=== PATIENT | female | born 1940 | race Caucasian/White ===

== ENCOUNTER → 2017-12-19 13:55 | Outpatient (CLI) | payer MEDICARE, OTHER, SELFPAY ==
--- NOTE | 2017-12-19 14:05 | RAD_ITS ---
STUDY: X-RAY - ABDOMEN/PELVIS REASON FOR EXAM: Female, 76 years old. Lower abdominal pain and bloating. TECHNIQUE: Single AP view of the abdomen / pelvis. COMPARISON: None. FINDINGS: Normal visualized lung bases. There is a moderate amount of colonic fecal material. There are nonspecific gaseous small bowel loops and colon. Normal soft tissue structures. There are diffuse degenerative changes of the visualized lumbar spine. RAD/Abdomen Single View IMPRESSION: Fecal distention. Nonspecific gas pattern. Electronically Signed: Chris Rachel MD at 3:56 EDT Tel , Service support ,
== END ==
PROVIDERS: Family Provider Internal Medicine; PCP Internal Medicine; Visit Provider Nurse Practitioner
DX: R10.9 Unspecified abdominal pain (principal)
CPT/HCPCS: 74018

== ENCOUNTER → 2017-12-20 07:32 | Outpatient (CLI) | payer MEDICARE, OTHER, SELFPAY ==
[2017-12-20 07:45] LABS: Bacteria 0 SEEN /hpf (None Seen); Mucous, Urine 0 SEEN /hpf (<or=2+); Squamous Epithelial Cells - UA 0 SEEN /hpf (5-10)
[2017-12-20 10:15] LABS: Absolute Lymphocyte Count 2.16 X10^3/ul (0.83-4.51); Absolute Neutrophil Count 2.7 X10^3/uL (2.0-7.7); Basophil# 0.13 X10^3/uL; Basophil% 2.2 % (0-1); Eosinophil# 0.23 X10^3/uL; Hematocrit 38.8 % (37-47); Hemoglobin 12.9 g/dl (12.0-15.0); Lymphocyte # 2.16 X10^3/ul (4.0); Lymphocyte % 37.2 % (19-41); Mean Corp Hgb Conc 33.2 g/gl (32-36); Mean Corpuscular Hgb 30.5 pg (27.0-32.0); Mean Corpuscular Volume 91.7 fL (81-99); Mean Platelet Vol. 11.5 fl (6.2-12.0); Monocyte# 0.64 X10^3/uL; Neutrophil # 2.65 X10^3/uL (2.7-7.7); Neutrophil % 45.6 % (47-70); Platelet Count 262 K/mm3 (150-450); RBC Distribution Width CV 13.2 % (11.6-14.6); RBC Distribution Width SD 43.6 fl (35.1-43.9); Red Blood Count 4.23 M/mm3 (4.2-5.4); White Blood Count 5.8 K/mm3 (4.4-11.0)
[2017-12-20 10:16] LABS: Differential Indicated SCAN CRITERIA MET; POSITIVE COUNT NO; POSITIVE DIFFERENTIAL NO; POSITIVE MORPHOLOGY YES
[2017-12-20 10:31] LABS: BUN 17 mg/dL (7-18); Creatinine, Serum 0.72 mg/dL (0.55-1.02); Glucose 86 mg/dL (74-106)
[2017-12-20 10:32] LABS: AST(SGOT) 27 U/L (15-37); Alanine Aminotransfer ALT/SGPT 28 U/L (13-56); Albumin, Serum 3.6 g/dL (3.2-5.0); Alkaline Phosphatase 63 U/L (45-117); Anion Gap 5 (5-15); BUN/Creat Ratio 23.7 RATIO (10-20); Bilirubin, Direct 0.11 mg/dL (0.00-0.30); Chloride 103 mmol/L (98-107); Cholesterol 105 mg/dL (200); EST Glomerular Filtration Rate 84 mL/min (>60); Est Glom Filt Rate - Afr Amer 102 mL/min (>60); Globulin 3.7 g/dL (2.2-4.2); High Density Lipoprotein 43 mg/dL; Potassium 4.1 mmol/L (3.5-5.1); Protein, Total 7.3 g/dL (6.4-8.2); Sodium Level 140 mmol/L (136-145); Thyroid Stim Hormone (TSH) 1.84 uIU/mL (0.358-3.74); Triglycerides 54 mg/dL; Very Low Density Lipoprotein 11 mg/dL (5-40)
[2017-12-20 10:34] LABS: Microalbumin,Random Urine 5.3 mg/L (NO RANGE EST.); Microalbumin:Creatinine Ratio 9.7 mg/g CRE (<30 mg/g CRE)
[2017-12-20 10:42] LABS: Differential Comment SCANNED
[2017-12-20 14:04] LABS: Color, Urine Yellow (Yellow); Glucose, Dipstick Normal (Normal); Ketone-Dipstick Negative (Negative); Leukocyte Esterase-Dipstick 25 /ul (Negative); Nitrite-Dipstick Negative (Negative); Occult Blood-Urine 10 /ul (Negative); Protein-Dipstick Negative (Negative); Specific Gravity, Urine 1.005 (1.002-1.030); Urine Bilirubin Dipstick Negative (Negative); Urine Clarity Clear (Clear); Urine Urobilinogen Normal (Normal)
[2017-12-20 14:13] LABS: Red Blood Cells-Urine 0-5 SEEN /hpf (0-5); White Blood Cells 0-5 SEEN /hpf (0-5)
== END ==
PROVIDERS: Family Provider Internal Medicine; PCP Internal Medicine; Visit Provider Internal Medicine Cardiovascular Disease
DX: E78.5 Hyperlipidemia, unspecified (principal); Z79.899 Other long term (current) drug therapy; I10 Essential (primary) hypertension; E78.00 Pure hypercholesterolemia, unspecified
CPT/HCPCS: 36415; 80053; 80061; 81001; 82043; 82248; 82570; 84443; 85025

== ENCOUNTER → 2018-04-09 15:02 | Outpatient (CLI) | payer MEDICARE, OTHER, SELFPAY ==
--- NOTE | 2018-04-09 15:06 | US_ITS ---
STUDY: THYROID ULTRASOUND REASON FOR EXAM: Female, 77 years old. Right cervical palpable mass. TECHNIQUE: Ultrasound evaluation of the thyroid was performed with real-time and static carey-scale imaging. COMPARISON: None. FINDINGS: RIGHT LOBE: The right lobe of the thyroid gland measures 4.1 cm x 1.3 cm x 1.2 cm. There is a homogeneous echotexture. There is a 9 mm x 4 mm x 3 mm hypoechoic solid/cystic nodule in the lower pole of the right lobe. LEFT LOBE: The left lobe of the thyroid gland measures 4.4 cm x 1.4 cm x 1.9 cm. There is a homogeneous echotexture. There is a 6 mm x 6 mm x 6 mm well-defined hypoechoic solid nodule in the midpole of the left lobe. ISTHMUS: The isthmus measures 1.0 mm. The palpable abnormality lies on the lateral side of the right lobe of the thyroid. It measures 2.7 cm x 2.9 cm x 0.9 cm. This is of heterogeneous echotexture. This may represent either an inhomogeneous lymph node or possible mass. Correlation with a CT scan is recommended. US/Thyroid IMPRESSION: Subcentimeter nodules are seen in both lobes of the thyroid gland. The palpable abnormality corresponds to a heterogeneous soft tissue mass measuring 2.7 cm x 2.9 cm x 0.9 cm. This lies adjacent to the major vessels. Correlation with a CT scan is recommended for further evaluation. Electronically Signed: Michael Espinoza MD at 15:55 EST Tel [phone], Service support ,
[2018-04-10 14:51] LABS: CREATININE FINGERSTICK 0.8 mg/dL (0.55-1.02); EGFR FINGERSTICK > 60.0000 mL/min (>60)
== END ==
PROVIDERS: Family Provider Internal Medicine; PCP Internal Medicine; Visit Provider Nurse Practitioner
DX: R22.1 Localized swelling, mass and lump, neck (principal)
CPT/HCPCS: 76536

== ENCOUNTER → 2018-04-10 14:29 | Outpatient (CLI) | payer MEDICARE, OTHER, SELFPAY ==
--- NOTE | 2018-04-10 14:31 | CT_ITS ---
STUDY: CT SOFT TISSUE NECK WITH CONTRAST REASON FOR EXAM: Female, 77 years old. 3 day history of a Soft tissue mass/lump anterior aspect of the right side of the neck. RADIATION DOSAGE (If Supplied By Facility): CTDIvol = ( 12.36 ) mGy, DLP = ( 364.23 ) mGycm TECHNIQUE: The patient was scanned in a multi-detector CT scanner. High resolution transaxial imaging was performed following intravenous administration of 75mL ml of Isovue 300 contrast material. Sagittal and coronal images were reconstructed. Individualized dose optimization techniques were used for this CT. COMPARISON: None. FINDINGS: Normal bilateral parotid glands. 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 Normal bilateral parapharyngeal spaces. Normal bilateral carotid spaces. Normal bilateral sublingual and submandibular glands and spaces. Normal visualized nasopharynx. Normal retropharyngeal space. Normal perivertebral space. Normal visualized bilateral faucial tonsils. The visualized tongue, tongue base and oropharynx are normal. The visualized cervical lymph nodes (levels I-) are within normal size limits, and maintain normal morphology. There is no demonstrated solid or cystic mass lesion. There is no abnormal contrast enhancement. Normal epiglottis, bilateral vallecula and hypopharynx. The pre-epiglottic and paraglottic adipose spaces are normal. Normal visualized bilateral piriform sinuses, aryepiglottic folds, vocal cords, and arytenoid-cricoid articulations. Normal subglottic trachea. Normal bilateral lobes of the thyroid gland. Normal visualized pulmonary apices. Minimal mucosal thickening along the lateral wall of the right maxillary sinus. There is multilevel degenerative changes of the cervical spine. CT/Soft Tissue Neck WITH Contrast IMPRESSION: No mass lesion is seen. Minimal degree of mucosal thickening along the lateral wall of right maxillary sinus. Electronically Signed: Michael Espinoza MD at 15:37 EST Tel [phone], Service support ,
== END ==
PROVIDERS: Family Provider Internal Medicine; PCP Internal Medicine; Referring Provider Nurse Practitioner; Visit Provider Nurse Practitioner
DX: M79.9 Soft tissue disorder, unspecified (principal)
CPT/HCPCS: 70491; Q9967

== ENCOUNTER → 2018-04-17 09:04 | Outpatient (CLI) | payer MEDICARE, OTHER, SELFPAY ==
--- NOTE | 2018-04-17 | ASPOS_PTH ---
PATIENT: HERMAN LEONARD LOC: [facility] U#:[id number] AGE/SX: 84/F ROOM: RE04/17/[address]: Dr. Ricardo Rollins MD : 1940 BED: DIS: SPEC #: [id number] RECD: 04/17/18 12:38 STATUS: ALLI IAN #: [id number] MARY: 04/17/18 00:[address]: Ricardo Rollins DEPT: CYTOLOGY RECD BY: Ehsan Mccain ENTERED: 04/17/18 12:39 SP TYPE: ASP HERE OTHR DR: Dr. Catrina Malhotra DO Tissues: Neck, NOS Procedures: Pap Stain (control) Special Stain Group II Surgery Specimen Level IV Diff Quik Stain (control) Cell Block Cytology Other Fine Needle Asp on Site HEADER OPERATION: FNA, right neck mass PRE-OP DIAGNOSIS: Right neck mass TISSUE SUBMITTED: Right neck mass DIAGNOSIS CYTOLOGY Fine needle aspiration, right neck mass (smear, cell block): Negative for malignant cells. See comment. AM:zeb 04/18/18 COMMENT The specimen is evaluated at the time of FNA by Dr. Arellano. Immediate Evaluation = Macrophages consistent with benign cyst contents. The specimen contains macrophages, degenerating cellular debris and amorphous proteinaceous material. The lesion may represent a degenerating cyst. Clinical correlation is suggested. Case has been reviewed in consultation with Dr. Hernandez who concurs with the above diagnosis. IDC:SJ CYTOLOGY STUDY Slides are reviewed. CYTOLOGY GROSS Received is 0.5 ml of reddish fluid labeled with the patient's name, and designated Right neck mass. 5 imprints and 3 paps are made from the submitted fluid and the rest is added to CytoLyt for cell block preparation. Submitted for cytology study. TC: 5 CPT: 08955, 360880, 18941, 79310
== END ==
PROVIDERS: Family Provider Internal Medicine; PCP Internal Medicine; Referring Provider Otolaryngology; Visit Provider Otolaryngology
DX: R22.1 Localized swelling, mass and lump, neck (principal)
CPT/HCPCS: 10021; 88161; 88305; 88313

== ENCOUNTER → 2018-06-14 10:03 | Outpatient (CLI) | payer MEDICARE, OTHER, SELFPAY ==
--- NOTE | 2018-06-14 10:16 | EKG12_ITS ---
Test Reason : PREOP Blood Pressure : / mmHG Vent. Rate : 048 BPM Atrial Rate : 048 BPM P-R Int : 158 ms QRS Dur : 090 ms QT Int : 454 ms P-R-T Axes : 064 030 056 degrees QTc Int : 405 ms Marked sinus bradycardia Possible Left atrial enlargement Abnormal ECG Confirmed by BETO PLASCENCIA, SILVIA ([id number]), technical editor JOSE M TERRAZAS ([id number]) on 06/14/2018 1:33:13 PM Referred By: Go Rollins Confirmed By:SILVIA PÉREZ MD
[2018-06-14 11:45] LABS: Anion Gap 6 (5-15); BUN 17 mg/dL (7-18); BUN/Creat Ratio 27.6 RATIO (10-20); Chloride 103 mmol/L (98-107); Creatinine, Serum 0.62 mg/dL (0.55-1.02); EST Glomerular Filtration Rate 101 mL/min (>60); Est Glom Filt Rate - Afr Amer 122 mL/min (>60); Glucose 89 mg/dL (74-106); Potassium 3.8 mmol/L (3.5-5.1); Sodium Level 138 mmol/L (136-145)
== END ==
PROVIDERS: Family Provider Internal Medicine; PCP Internal Medicine; Referring Provider Otolaryngology; Visit Provider Otolaryngology
DX: Z01.818 Encounter for other preprocedural examination (principal); R22.1 Localized swelling, mass and lump, neck
CPT/HCPCS: 36415; 80048; 93005

== ENCOUNTER → 2018-06-19 15:36 | Outpatient (CLI) | payer MEDICARE, OTHER, SELFPAY ==
--- NOTE | 2018-06-18 | IMM_PTH ---
PATIENT: HERMAN LEONARD LOC: [facility] U#:[id number] AGE/SX: 84/F ROOM: RE06/19/[address]: Dr. Ricardo Rollins MD : 1940 BED: DIS: SPEC #: [id number] RECD: 06/24/18 12:43 STATUS: ALLI REQ #: [id number] MARY: 06/18/18 00:[address]: Ricardo Rollins DEPT: IMMUNOHISTOCHEMISTRY RECD BY: Ju Ochoa ENTERED: 06/24/18 12:46 SP TYPE: IMMUNO OTHR DR: Dr. Catrina Malhotra, DO Tissues: Neck, NOS Procedures: SMA (add) CD31 (add) CD34 (add) JOAQUÍN (add) KI-67 (add) MACRO (add) P53 (add) Vimentin (add) FACTOR VIII (add) AE1-3 (initial) PHYSICIAN & INSTITUTION [facility] [phone] SPECIMEN INFORMATION: Tissue Source: Right neck mass Clinical Info: Localized swelling mass and lump, neck Specimen Number: [id number] block 1 CPT code: 10105, 77131 x9 METHODOLOGY: Deparaffinized sections of prefer/formalin-fixed tissue or PAP/DQ stained slides are incubated with monoclonal/polyclonal antibodies/oligonucleotide probes. Localization is made via biotin free immunoperoxidase method. Appropriate controls are performed and reacted as expected. Results on target cell population are indicated in the following table: RESULTS: ANTIBODY / CLONE RESULT Block 1 AE1-3 (AE1/AE3/PCK26) negative Actin (1A4) positive, focal Vimentin (V9) positive CD31 (MARYELLEN/70A) positive CD34 (QBEnd-10) positive Factor VIII (R Ag) positive Macro (HAM-56) positive Ki-67 (30-9) negative JOAQUÍN (E29) negative P53 (DO-7) negative These tests were developed and their performance characteristics determined by [facility]. They may not have been cleared or approved by the [place]. Food and Drug Administration. The FDA has determined that such clearance or approval is not necessary. INTERPRETATION: Right neck mass, excision: Suggestive of benign vascular lesion with associated organizing hematoma. AM:maritza 06/26/18
--- NOTE | 2018-06-18 14:10 | MASS_PTH ---
PATIENT: HERMAN LEONARD LOC: [facility] U#:[id number] AGE/SX: 84/F ROOM: RE06/19/[address]: Dr. Ricardo Rollins MD : 1940 BED: DIS: SPEC #: [id number] RECD: 06/19/18 15:36 STATUS: ALLI IAN #: [id number] MARY: 06/18/18 14:[address]: Ricardo Rollins DEPT: SURGICAL PATHOLOGY RECD BY: Nahum Coates ENTERED: 06/20/18 12:10 SP TYPE: Mass OTHR DR: Dr. 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 No evidence of malignancy. AM:maritza 06/21/18 COMMENT Immunohistochemistry ([id number]) supports the above diagnosis. The differential diagnosis includes a benign vascular lesion with associated organizing hematoma and associated reactive change. Reference is made to the patient's previous fine needle aspiration from 04/17/18 ([id number]) in which macrophages consistent with benign cyst contents were identified. MICROSCOPIC DESCRIPTION Slides are reviewed. GROSS DESCRIPTION Received is one container labeled with the patient's name and not further designated. The specimen consists of a piece of pink, congested soft tissue measuring 2 x 1.5 x 1.2 cm. The specimen is inked, serially sectioned and reveals hemorrhagic cut surfaces. The entire specimen is submitted in two cassettes. / SJ:maritza 06/20/18 TC:5 CPT: 52219
--- OUTSIDE RECORDS SUMMARY | 2018-08-24 15:34 | XMS RPT_ITS | Continuity of Care Document ---
:1940 External Reference #:[id number] Author Organization [facility] Address [address] [place] [address] Phone Care Team Providers Name Role Phone Catrina Perry DO Unavailable Ricardo Rollins MD Unavailable Dr. Addison Kimball Unavailable Poly Bunn Unavailable [facility] PLASCENCIA, Dr. 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, 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) Comments: going to try calm day before adding buspar Status: Active BMI 22.0-22.9, adult (Z68.22, V85.1) Status: Active BMI 23.0-23.9, adult (Z68.23, V85.1) Status: Active BMI 23.0-23.9, adult (Z68.23, V85.1) Status: Active BMI 25.0-25.9,adult (Z68.25, V85.21) Status: Active Depression (F32.9, 311) Comments: chronic stable-continue present regimen Status: Active Diaphragmatic hernia without obstruction (K44.9, 553.3) Status: Active Dizziness and giddiness (R42, 780.4) Status: Active Dysuria (R30.0, 788.1) Status: Active Eczema (Renamed from Dermatitis, eczematoid) (L30.9, 692.9) Status: Active Encounter for Medicare annual wellness exam (Z00.00, V70.0) Status: Active Essential hypertension (I10, 401.9) Status: Active Family history of other cardiovascular diseases (Z82.49, V17.4) Status: Active Foot pain, right (M79.671, 729.5) Status: Active Gastroesophageal reflux disease without esophagitis (K21.9, 530.81) Status: Active Hearing loss, unspecified laterality (389.9) Status: Active Hypercholesterolemia (E78.00, 272.0) Status: Active Low back pain (Renamed from LBP (low back pain)) (M54.5, 724.2) 19-Aug-2010 Status: Active Low back pain potentially associated with radiculopathy (M54.5, 724.2) Status: Active Need for prophylactic vaccination and inoculation against influenza (Z23, V04.81) Status: Active Need for prophylactic vaccination and inoculation against influenza (Renamed from Need for immunization against influenza) (Z23, V04.81) Status: Active NEED FOR PROPHYLACTIC VACCINATION AND INOCULATION AGAINST INFLUENZA (V04.81) (Renamed from NEED FOR PROPHYLACTIC VACCINATION AND INOCULATION AGAINST INFLUENZA) (Z23, V04.81) Status: Active Non-smoker (Z78.9, V49.89) Status: Active Non-smoker (Z78.9, V49.89) Status: Active Obstructive sleep apnea, adult (G47.33, 327.23) Status: Active Osteoarthritis (M19.90, 715.90) Status: Active Osteoporosis, 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, 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) Comments: dr Yang managing Status: Active Other anxiety states (F41.1, 300.09) Status: Active Other specified circulatory system disorders (I99.8, 459.89) Status: Active Post-menopausal (Z78.0, V49.81) Status: Active Prolapse of vaginal wall with midline cystocele (N81.11, 618.01) Status: Active screen Status: Active screening Status: Active screening Status: Active screening Status: Active screening Status: Active Soft tissue mass (M79.9, 729.90) Comments: biopsy jof soft tissue mass on neck was benign Status: Active Suprapubic pain, acute (R10.2, 789.09) Status: Active CAROLINE Status: Active Unspecified Diagnosis Status: Active Unspecified Diagnosis Status: Active Uterovaginal prolapse, unspecified (618.4) Status: Active UTI (urinary tract infection) (N39.0, 599.0) Comments: ernst headley, treating with macrobid Status: Active Medications Name Dates Details Aspirin Low Dose 81 MG Oral Tablet 1 QD for 0 days Refills: 0 Ordered:09-May-2018 Nick Perry DO, DO, Kathleen Start : 09-May-2018 Active Biotin 1000 MCG Oral Tablet qd for 0 days Refills: 0 Ordered:09-May-2018 Nick Perry DO, DO, Kathleen Start : 09-May-2018 Active CALCIUM, 1500MG (Oral Tablet) 1 QD for 0 days Refills: 0 Ordered:16-Sep-2013 Shankar Herndon Citalopram Hydrobromide 20 MG Oral Tablet 1 Tablet qd for 90 days Quantity: 90 {Tablet} Refills: 1 Ordered:13-May-2018 Nick Perry DO, DO, Kathleen Start : 13-May-2018 Active Citracal Maximum 315-250 MG-UNIT Oral Tablet 1 tab bid for 0 days Refills: 0 Ordered:09-May-2018 Nick Perry DO, DO, Kathleen Start : 09-May-2018 Active Folic Acid 400 MCG Oral Tablet qd for 0 days Refills: 0 Ordered:09-May-2018 Nick Perry DO, DO, Kathleen Start : 09-May-2018 Active Glucosamine Chondr 1500 Complx Oral Capsule bid for 0 days Refills: 0 Ordered:09-May-2018 Nick Perry DO, DO, Kathleen Start : 09-May-2018 Active HydroCHLOROthiazide 12.5 MG Oral Tablet 1 (one) Tablet daily for 90 days Quantity: 90 {Tablet} Refills: 3 Ordered:09-May-2018 Nick Perry DO, DO, Kathleen Start : 09-May-2018 Active HydroCHLOROthiazide 12.5 MG Oral Tablet 1 (one) Tablet daily for 30 days Quantity: 30 {Tablet} Refills: 1 Ordered:09-May-2018 Nick Perry DO, DO, Kathleen Start : 09-May-2018 Active Losartan Potassium 50 MG Oral Tablet 1 qd for 0 days Refills: 0 Ordered:09-May-2018 Nick Perry DO, DO, Kathleen Start : 09-May-2018 Active Metoprolol Succinate ER 25 MG Oral Tablet Extended Release 24 Hour 1 Tablet qd for 90 days Quantity: 90 {Tablet} Refills: 1 Ordered:09-May-2018 Nick Perry DO, DO, Kathleen Start : 09-May-2018 Active MULTIVITAMIN (Oral Liquid) for 0 days Refills: 0 Ordered:31-Dec-2017 Slarb ROEL AngelSalvatoretive Omeprazole 20 MG Oral Capsule Delayed Release [address] qd for 90 days Quantity: 90 {Capsule} Refills: 3 Ordered:13-May-2018 Nick Perry DO, DO, Kathleen Start : 13-May-2018 Active Simvastatin 40 MG Oral Tablet 1 (one) Tablet qd for 90 days Quantity: 90 {Tablet} Refills: 1 Ordered:13-May-2018 Nick Perry DO, DO, Kathleen Start : 13-May-2018 Active ALEVE, 220MG (Oral Tablet) 2 (two) Tablet q8 hr prn with food for 0 days Quantity: 30 {Tablet} Refills: 0 Ordered:30-Jan-2012 Long HOUSEHOLD CHORES, L Start : 14-Dec-2010 End : 30-Jan-2012 Inactive SAI-D 12 HOUR, 60-120MG (Oral Tablet Extended Release 12 Hour) 1 Tablet ER 12HR bid for 5 days Quantity: 12 {Tablet_ER_12HR} Refills: 0 Ordered:08-Aug-2010 Nick Perry DO, DO, Kathleen Start : 23-Jun-2010 End : 28-Jun-2010 Inactive ASTEPRO, 0.15% (Nasal Solution) 2 (two) Puff(s) daily for 0 days Quantity: 1 {Suppository(ies)} Refills: 0 Ordered:30-Jan-2012 Megan Phillips LPN Start : 11-Jul-2011 End : 30-Jan-2012 Inactive ATENOLOL, 25MG (Oral Tablet) 1 (one) Tablet qd for 0 days Quantity: 30 {Tablet} Refills: 3 Ordered:24-Apr-2007 Libby Herndon Start : 24-Apr-2007 End : 27-Sep-2007 Inactive AUGMENTIN, 875-125MG (Oral Tablet) 1 Tablet bid for 14 days Quantity: 28 {Tablet} Refills: 0 Ordered:07-Sep-2010 Acacia Whaley CNP Start : 07-Sep-2010 End : 21-Sep-2010 Inactive BACTRIM DS, 800-160MG (Oral Tablet) 1 Tablet bid for 0 days Quantity: 20 {Tablet} Refills: 0 Ordered:06-Aug-2012 EBTTE Edwards Start : 25-Jun-2012 End : 06-Aug-2012 Inactive BENICAR, 40MG (Oral Tablet) 1 (one) Tablet QD for 90 days Quantity: 90 {Tablet} Refills: 3 Ordered:28-Oct-2014 Daisy Gallegos Start : 13-Mar-2014 End : 28-Oct-2014 Inactive BIOTIN, 1000MCG (Oral Tablet) 1 tab qd for 0 days Refills: 0 Ordered:07-Sep-2010 Cristine Barrett LPN End : 07-Sep-2010 Inactive BUSPAR, 15MG (Oral Tablet) 1 Tablet qd for 0 days Quantity: 60 {Tablet} Refills: 3 Ordered:05-Jun-2006 Libby Herndon Start : 05-Jun-2006 End : 27-Sep-2007 Inactive CIPRO, 500MG (Oral Tablet) 1 Tablet bid x 10days for 10 days Quantity: 20 {Tablet} Refills: 0 Ordered:23-Apr-2015 Nick Perry DO, DO, Kathleen Start : 23-Apr-2015 End : 03-May-2015 Inactive CORICIDIN HBP CONGESTION/COUGH, 10-200MG (Oral Capsule) 1 Capsule daily for 0 days Quantity: 30 {Capsule} Refills: 0 Ordered:14-Dec-2010 Cristine Barrett LPN Start : 07-Sep-2010 End : 14-Dec-2010 Inactive DIOVAN, 320MG (Oral Tablet) 1 Tablet qd for 90 days Quantity: 90 {Tablet} Refills: 3 Ordered:24-Jun-2013 Corine Marcum MD Start : 24-Jun-2013 End : 24-Jun-2013 Inactive ETODOLAC CR, 400MG (Oral Tablet Extended Release 24 Hour) 2 (two) Tablet ER 24HR qd with food for 0 days Quantity: 30 {Tablet_ER_24HR} Refills: 0 Ordered:07-Sep-2010 Cristine Barrett LPN Start : 19-Aug-2010 End : 07-Sep-2010 Inactive Fish Oil 1200 MG Oral Capsule 1 cap Capsule qd for 30 days Refills: 0 Ordered:12-Dec-2017 Nick Perry DO, DO, Kathleen Start : 12-Dec-2017 End : 11-Jan-2018 Inactive FLONASE, 50MCG/ACT (Nasal Suspension) 2 (two) Puff(s) daily for 0 days Quantity: 1 {Puff(s)} Refills: 0 Ordered:30-Jan-2012 Megan Phillips LPN Start : 21-Jul-2011 End : 30-Jan-2012 Inactive FOLIC ACID, 1MG (Oral Tablet) 1 tab qd for 0 days Refills: 0 Ordered:27-Sep-2007 Libby Herndon End : 27-Sep-2007 Inactive KLONOPIN, 0.5MG (Oral Tablet) 1-2 Tablet QHS / HS prn for 0 days Quantity: 30 {Tablet} Refills: 1 Ordered:07-Sep-2010 Cristine Barrett LPN Start : 13-Jul-2009 End : 07-Sep-2010 Inactive Comments:THIRTY Lisinopril 20 MG Oral Tablet 1 (one) Tablet daily for 30 days Quantity: 30 {Tablet} Refills: 1 Ordered:12-Dec-2017 Tanya Bermudez LPN Start : 19-Jul-2015 End : 12-Dec-2017 Inactive Macrobid 100 MG Oral Capsule 1 (one) Capsule Capsule bid for 7 days Quantity: 14 {Capsule} Refills: 0 Ordered:26-Dec-2017 Nick Perry DO, DO, Kathleen Start : 26-Dec-2017 End : 02-Jan-2018 Inactive Meloxicam 15 MG Oral Tablet 1 (one) Tablet daily, prn for 30 days Quantity: 30 {Tablet} Refills: 0 Ordered:12-Dec-2017 Tanya Bermudez LPN Start : 21-May-2015 End : 12-Dec-2017 Inactive Comments:with food METROGEL-VAGINAL, 0.75% (Vaginal Gel) 1 Gel qhs with vaginal applicator for 0 days Quantity: 7 {Gel} Refills: 0 Ordered:07-Sep-2010 Cristine Barrett LPN Start : 23-Jun-2010 End : 07-Sep-2010 Inactive NASACORT AQ, 55MCG/ACT (Nasal Aerosol Solution) 2 (two) Puff(s) once daily for 0 days Quantity: 1 {Aerosol_Soln} Refills: 0 Ordered:14-Dec-2010 Cristine Barrett LPN Start : 07-Sep-2010 End : 14-Dec-2010 Inactive NASONEX, 50MCG/ACT (Nasal Suspension) 2 (two) Suspension qd for 10 days Quantity: 1 {Suspension} Refills: 0 Ordered:08-Aug-2010 Nick Perry DO, DO, Kathleen Start : 23-Jun-2010 End : 03-Jul-2010 Inactive PREDNISONE, 10MG (Oral Tablet) 3 (three) Tablet daily for 7 days Quantity: 21 {Tablet} Refills: 0 Ordered:09-Dec-2014 Jovana OJEDA Lori Start : 09-Dec-2014 End : 16-Dec-2014 Inactive PREMARIN, 0.625MG (Oral Tablet) 1 (one) Tablet QD for 0 days Quantity: 90 {Tablet} Refills: 3 Ordered:04-Apr-2006 Jocelin Bunn Start : 04-Apr-2006 End : 10-Apr-2007 Inactive RED YEAST RICE EXTRACT, 600MG (Oral Capsule) 2 caps qd for 0 days Refills: 0 Ordered:29-Mar-2009 Libby Herndon End : 29-Mar-2009 Inactive ULTRAVATE, 0.05% (External Cream) 1 (one) Cream bid for 0 days Quantity: 1 {Cream} Refills: 0 Ordered:19-Aug-2010 Tanya Bermudez LPN Start : 23-Dec-2009 End : 19-Aug-2010 Inactive VALIUM, 2MG (Oral Tablet) 1-2 Tablet q 12 hr prn for 0 days Quantity: 30 {Tablet} Refills: 0 Ordered:07-Sep-2010 Arnold SEVILLA, Cristine Start : 19-Aug-2010 End : 07-Sep-2010 Inactive Comments:thrity VICODIN, 5-500MG (Oral Tablet) 1-2 Tablet q 6 prn for 0 days Quantity: 30 {Tablet} Refills: 0 Ordered:14-Dec-2010 Arnold ROEL Cristine Start : 19-Aug-2010 End : 14-Dec-2010 Inactive Comments:thirty Viibryd 20 MG Oral Tablet 1 (one) Tablet qd for 0 days Quantity: 90 {Tablet} Refills: 3 Ordered:12-Dec-2017 Tanya Bermudez LPN Start : 21-May-2015 End : 12-Dec-2017 Inactive WELLBUTRIN XL, 150MG (Oral Tablet Extended Release 24 Hour) 1 (one) Tablet ER 24HR qd for 90 days Quantity: 90 {Tablet_ER_24HR} Refills: 0 Ordered:13-Nov-2011 Tanya Bermudez LPN Start : 13-Nov-2011 End : 11-Feb-2012 Inactive ZITHROMAX Z-KATHARINE, 250MG (Oral Tablet) 1 Tablet TAD for 0 days Quantity: 1 {Package(s)} Refills: 0 Ordered:30-Jan-2012 Megan Phillips LPN Start : 21-Jul-2011 End : 30-Jan-2012 Inactive ZOLOFT, 50MG (Oral Tablet) 1 (one) Tablet QD for 0 days Quantity: 90 {Tablet} Refills: 3 Ordered:06-Aug-2012 BETTE Edwards Start : 29-Sep-2011 End : 06-Aug-2012 Inactive AMOXICILLIN-POT CLAVULANATE, 875-125MG (Oral Tablet) 1 (one) Tablet Tablet bid for 0 days Quantity: 20 {Tablet} Refills: 0 Ordered:21-May-2015 Libby Herndon Start : 11-Jan-2015 End : 21-May-2015 Discontinued CRESTOR, 10MG (Oral Tablet) 1 tab Tablet qd for 90 days Quantity: 90 {Tablet} Refills: 3 Ordered:30-Jan-2012 Tessie Greene DO Start : 30-Jan-2012 End : 30-Jan-2012 Discontinued ELAVIL, 10MG (Oral Tablet) 1-2 Tablet qhs / HS for 0 days Quantity: 60 {Tablet} Refills: 3 Ordered:10-Apr-2007 Libby Herndon Start : 10-Apr-2007 End : 24-Jun-2007 Discontinued Folic Acid (specific dose unknown) End : 24-Jun-2007 Discontinued IRBESARTAN, 300MG (Oral Tablet) 1 (one) Tablet Tablet qd for 0 days Quantity: 90 {Tablet} Refills: 3 Ordered:19-Jul-2015 Libby Herndon Start : 28-Jun-2015 End : 19-Jul-2015 Discontinued LOSARTAN POTASSIUM, 100MG (Oral Tablet) 1 Tablet qd for 0 days Quantity: 90 {Tablet} Refills: 3 Ordered:03-May-2012 Tessie Greene DO Start : 03-May-2012 End : 03-May-2012 Discontinued PRILOSEC, 20MG (Oral Capsule Delayed Release) [address] qd for 90 days Quantity: 90 {Capsule_DR} Refills: 3 Ordered:30-Jan-2012 Jc BROUSSARD Tessie Soler Start : 30-Jan-2012 End : 30-Jan-2012 Discontinued REMIFEMIN MENOPAUSE, 20MG (Oral Tablet) 1 tab bid for 0 days Refills: 0 Ordered:08-Jan-2008 Libby Herndon End : 08-Jan-2008 Discontinued Allergies and Adverse Reactions Name Dates Details Bactrim *ANTI-INFECTIVE AGENTS - MISC.* Status: Active (Allergy) Comments: nausea Allergy to No Known Drug Allergies Status: Inactive (Renamed from No Known Drug Allergies) (Allergy) Pnuemonia vaccine (Allergy) Status: Active Comments: red, inflamed reaction on site of injection Past Medical History Name Dates Details Abdominal pain (R10.9, 789.00) Status: Resolved as of 18-Apr-2018 Abdominal pain, acute, generalized (R10.84, 789.07) Status: Resolved as of 05-Feb-2015 Abdominal pain, acute, left lower quadrant (R10.32, 789.04) Status: Resolved as of 15-Nov-2010 Abnormal mammogram (Renamed from Abnormal finding on mammography) (R92.8, 793.80) Status: Inactive as of 12-Dec-2017 Acute cystitis (N30.00, 595.0) Status: Resolved as of 21-Aug-2012 Acute laryngitis without obstruction (J04.0, 464.00) Status: Resolved as of 29-Sep-2011 Anemia, unspecified (D64.9, 285.9) Status: Resolved as of 11-Jan-2009 BACTERIAL VAGINOSIS (131.01) Status: Resolved as of 15-Nov-2010 Bronchitis (J40, 490) Status: Resolved as of 29-Sep-2011 Calf pain (M79.669, 729.5) Status: Resolved as of 30-Aug-2009 Candidiasis, unspecified (B37.9, 112.9) Status: Resolved as of 30-Aug-2009 Change in bowel habit (R19.4, 787.99) Status: Resolved as of 18-Apr-2018 Constipation (K59.00, 564.00) Comments: miralax helps Status: Resolved as of 18-Apr-2018 Dermatophytosis of the body (110.5) Status: Resolved as of 29-Sep-2011 Diarrhea (Renamed from D (diarrhea)) (R19.7, 787.91) Status: Resolved as of 15-Nov-2010 DISORDERS, ORGANIC, SLEEP RELATED LEG CRAMPS (327.52) Status: Resolved as of 30-Aug-2009 EASY BRUISABILITY OF SKIN Status: Inactive as of 16-Nov-2008 Encounter for screening mammogram for malignant neoplasm of breast (Z12.31, V76.12) Status: Inactive as of 31-Dec-2012 Eustachian tube dysfunction (H69.80, 381.81) Status: Resolved as of 15-Nov-2010 Fracture, Colles, right, closed (813.41) Comments: check on reclast Status: Inactive as of 12-Dec-2017 Headache (Renamed from Cephalalgia) (R51, 784.0) Status: Inactive as of 16-Nov-2008 Hematuria (Renamed from Blood in the urine) (R31.9, 599.7) Status: Inactive as of 16-Nov-2008 Hot flashes (N95.1, 627.2) Status: Inactive as of 12-Dec-2017 Infectious mononucleosis (B27.90, 075) Status: Resolved as of 15-Nov-2010 Infectious mononucleosis (B27.90, 075) Status: Resolved as of 21-Aug-2012 ischemic colitis Status: Inactive as of 16-Nov-2008 ischemic colitis Status: Inactive as of 12-Dec-2017 Knee pain (Renamed from Arthralgia of knee) (M25.569, 719.46) Status: Inactive as of 12-Dec-2017 Muscle spasm (M62.838, 728.85) Status: Resolved as of 18-Mar-2013 Nausea alone (Renamed from Chronic nausea) (R11.0, 787.02) Status: Resolved as of 21-Aug-2012 Nausea and vomiting (Renamed from N&V (nausea and vomiting)) (R11.2, 787.01) Status: Inactive as of 16-Nov-2008 Neck pain (M54.2, 723.1) Comments: use ibuprofen Status: Resolved as of 18-Apr-2018 No known drug allergy (Z78.9, V49.89) 13-Mar-2014 Status: Inactive as of 26-Oct-2009 Osteopenia (M85.80, 733.90) Status: Inactive as of 18-Apr-2018 Other chest pain (R07.89, 786.59) Status: Resolved as of 29-Sep-2011 Pain in joint involving ankle and foot, unspecified laterality (M25.579, 719.47) Comments: stepped down and felt burning pain on ankle Status: Resolved as of 29-Sep-2011 Palpable mass of neck (R22.1, 784.2) Comments: rt side ? lipoma, cyst? lymph? will ultrasound thyroid and attention rt neck and CT with contrast showing likely lymph node, will refer formally to Dr. Garcia ENT Status: Resolved as of 18-Apr-2018 Poison casandra (L23.7, 692.6) Status: Resolved as of 05-Feb-2015 probable seborrheic keratosis- reassurance Status: Inactive as of 16-Nov-2008 Rectal bleeding (K62.5, 569.3) Status: Inactive as of 16-Nov-2008 rhomboid spasm- pt starting massotherapy if not better- pt /imaging- pt to call no improve Status: Inactive as of 16-Nov-2008 Rib contusion (922.1) Status: Resolved as of 21-Aug-2012 Shortness of breath on exertion (R06.02, 786.05) Status: Inactive as of 16-Nov-2008 Shoulder pain (Renamed from Pain in shoulder) (M25.519, 719.41) Status: Resolved as of 30-Aug-2009 SOB (shortness of breath) on exertion (R06.02, 786.05) Status: Inactive as of 16-Nov-2008 Tachycardia-bradycardia (I49.5, 427.81) Status: Resolved as of 29-Sep-2011 Tension headache (G44.209, 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) Comments: chronic stable-continue present regimen Status: Inactive as of 16-Nov-2008 Vaginal discharge (Renamed from Discharge from the vagina) (N89.8, 623.5) Status: Resolved as of 15-Nov-2010 Well woman exam with routine gynecological exam (Z01.419, V72.31) Status: Inactive as of 01-May-2011 Procedures Date Value Details 10-Apr-2018 Soft Tissue Neck WITH Contrast Result: Comments: See Note; NOTES: [facility] Imaging Services [address] [address] Soft Tissue Neck WITH Contrast MR#: [id number] Acct: [id number] Name: HERMAN LEONARD Rep #: [id number] : 1940 F 77 From: Michael Alonso MD PCP: Catrina Perry DO Status: REG CLI Study: Soft Tissue Neck WITH Contrast Date of Exam: 04/10/18 Exam# [id number] Ordering Dr: Acacia Whaley STUDY: CT SOFT TISSUE NECK WITH CONTRAST REASON FOR EXAM: Female, 77 years old. 3 day history of a Soft tissue mass/lump anterior aspect of the right side of the neck. RADIATION DOSAGE (If Suppl ied By Facility): CTDIvol = ( 12.36 ) mGy, DLP = ( 364.23 ) mGycm TECHNIQUE: The patient was scanned in a multi-detector CT scanner. High resolution transaxial imaging was performed following intraveno us administration of 75mL ml of Isovue 300 contrast material. Sagittal and coronal images were reconstructed. Individualized dose optimization techniques were used for this CT. COMPARISON: None. FINDINGS: Normal bilateral parotid glands. Normal bilateral manager of business operations spaces. Normal bilateral parapharyngeal spaces. Normal bilateral carotid spaces. Normal bilateral sublingual and submandibular glands and spaces. Normal visualized nasopharynx. Normal retropharyngeal space. Normal perivertebral space. Normal visualized bilateral faucial tonsils. The visualized ton mikayla, tongue base and oropharynx are normal. The visualized cervical lymph nodes (levels I-) are within normal size limits, and maintain normal morphology. There is no demonstrated solid or cystic mas s lesion. There is no abnormal contrast enhancement. Normal epiglottis, bilateral vallecula and hypopharynx. The pre-epiglottic and paraglottic adipose spaces are normal. Normal visualized bilateral pi riform sinuses, aryepiglottic folds, vocal cords, and arytenoid-cricoid articulations. Normal subglottic trachea. Normal bilateral lobes of the thyroid gland. Normal visualized pulmonary apices. Minim al mucosal thickening along the lateral wall of the right maxillary sinus. There is multilevel degenerative changes of the cervical spine. CT/Sof t Tissue Neck WITH Contrast IMPRESSION: No mass lesion is seen. Minimal degree of mucosal thickening along the lateral wall of right maxillary sinus. Electronically Signed: Michael Alonso MD 04/10 at 15:37 EST Tel [phone], Service support , CC: Acacia Whaley TRANSPORTATION TECHNICIAN; Catrina Perry DO Jet Mechanic: Signed 10-Apr-2018 Soft Tissue Neck WITH Contrast Result: Comments: See Note; NOTES: [facility] Imaging Services [address] [place] [id number] Soft Tissue Neck WITH Contrast MR#: [id number] Acct: [id number] Name: HERMAN LEONARD Rep #: [id number] : 1940 F 77 From: Michael Alonso MD PCP: Catrina Perry DO Status: REG CLI Study: Soft Tissue Neck WITH Contrast Date of Exam: 04/10/18 Exam# [id number] Ordering Dr: Acacia Whaley P-C ADDENDUM by Michael Alonso MD on 04/11/18 at 0847 ADDENDUM This is an addendum report. Th ere is a 1.9 cm x 1.7 cm x 2.2 cm rounded soft tissue mass in the anterior aspect of the right-sided neck adjacent to the thyroid cartilage. This corresponds to the palpable abnormality. This may repres ent an enlarged lymph node. Electronically Signed: Michael Alonso MD at 8:47 EST Tel [phone], Service support , 04/11/18 0847 Date cc : Acacia Whaley NP; Catrina Perry DO * Signed ADDENDUM by Michael Alonso MD on 04/11/[address]/Soft Tissue Neck WITH Contrast 04/11/18 0854 Date cc: Acacia Willis sa, NP; Catrina Perry DO * Signed STUDY: CT SOFT TISSUE NECK WITH CONTRAST REASON FOR EXAM: Female, 77 years old. 3 day history of a Soft tissue mass/lump anterior aspect of the right side of the nec k. RADIATION DOSAGE (If Supplied By Facility): CTDIvol = ( 12.36 ) mGy, DLP = ( 364.23 ) mGycm TECHNIQUE: The patient was scanned in a multi-detector CT scanner. High resolution transaxial imaging was performed following intravenous administration of 75mL ml of Isovue 300 contrast material. Sagittal and coronal images were reconstructed. Individualized dose optimization techniques were used for thi s CT. COMPARISON: None. FINDINGS: Normal bilateral parotid glands. Normal bilateral manager of business operations spaces. Normal bilateral parapharyngeal spaces. Normal bilateral albarado tid spaces. Normal bilateral sublingual and submandibular glands and spaces. Normal visualized nasopharynx. Normal retropharyngeal space. Normal perivertebral space. Normal visualized bilateral fauci al tonsils. The visualized tongue, tongue base and oropharynx are normal. The visualized cervical lymph nodes (levels I-) are within normal size limits, and maintain normal morphology. There is no de monstrated solid or cystic mass lesion. There is no abnormal contrast enhancement. Normal epiglottis, bilateral vallecula and hypopharynx. The pre-epiglottic and paraglottic adipose spaces are normal. Normal visualized bilateral piriform sinuses, aryepiglottic folds, vocal cords, and arytenoid-cricoid articulations. Normal subglottic trachea. Normal bilateral lobes of the thyroid gland. Normal visua lized pulmonary apices. Minimal mucosal thickening along the lateral wall of the right maxillary sinus. There is multilevel degenerative changes of the cervical spine. __ CT/Soft Tissue Neck WITH Contrast IMPRESSION: No mass lesion is seen. Minimal degree of mucosal thickening along the lateral wall of right maxillary sinus. Electronically Signed : Michael Alonso MD at 15:37 EST Tel [phone], Service support , CC: Acacia Whaley NP; Catirna Perry DO Jet Mechanic: Signed 09-Apr-2018 Thyroid Result: Comments: See Note; NOTES: [facility] Imaging Services [facility] [place] [address] Thyroid MR#: [id number] Acct: [id number] Name: HERMAN LEONARD Rep #: [id number] : 12/26/18 45 F 77 From: Michael Alonso MD PCP: Catrina Perry DO Status: REG CLI Study: Thyroid Date of Exam: 04/09/18 Exam# [id number] Ordering Dr: Acacia Whaley TRANSPORTATION TECHNICIAN-C STUDY: THYROID ULTRASOUND REASON FOR EX AM: Female, 77 years old. Right cervical palpable mass. TECHNIQUE: Ultrasound evaluation of the thyroid was performed with real-time and static carey-scale imaging. COMPARISON: None. FINDINGS: RIGHT LOBE: The right lobe of the thyroid gland measures 4.1 cm x 1.3 cm x 1.2 cm. There is a homogeneous echotexture. There is a 9 mm x 4 mm x 3 mm hypoechoic solid/cystic nodule in the lower pole of the right lobe. LEFT LOBE: The left lobe of the thyroid gland measures 4.4 cm x 1.4 cm x 1.9 cm. There is a homogeneous echotexture. There is a 6 mm x 6 mm x 6 mm well-defi sravan hypoechoic solid nodule in the midpole of the left lobe. ISTHMUS: The isthmus measures 1.0 mm. The palpable abnormality lies on the lateral side of the right lobe of the thyroid. It measures 2.7 c m x 2.9 cm x 0.9 cm. This is of heterogeneous echotexture. This may represent either an inhomogeneous lymph node or possible mass. Correlation with a CT scan is recommended. US/Thyroid IMPRESSION: Subcentimeter nodules are seen in both lobes of the thyroid gland. The palpable abnormality corresponds to a heterogeneous soft tissue mass measuring 2.7 cm x 2.9 cm x 0.9 cm. This lies adjacent to the major vessels. Correlation with a CT scan is recommended for further evaluation. Electronically Signed: Michael Alonso MD at 15:[address] Tel [phone], Service support , CC: Acacia Whaley NP; Catrina Perry DO Jet Mechanic: Signed 19-Dec-2017 Abdomen Single View Result: Comments: See Note; NOTES: [facility] Imaging Services [address] [place] [address] Abdomen Single View MR#: [id number] Acct: [id number] Name: HERMAN LEONARD Rep #: [id number] D OB: 1940 F 76 From: Chris Rachel MD PCP: Catrina Perry DO Status: REG CLI Study: Abdomen Single View Date of Exam: 12/19/17 Exam# [id number] Ordering Dr: Acacia Whaley STUDY: X-RAY - ABDOMEN/PE LVIS REASON FOR EXAM: Female, 76 years old. Lower abdominal pain and bloating. TECHNIQUE: Single AP view of the abdomen / pelvis. COMPARISON: None. FINDINGS: Norm al visualized lung bases. There is a moderate amount of colonic fecal material. There are nonspecific gaseous small bowel loops and colon. Normal soft tissue structures. There are diffuse degenerative changes of the visualized lumbar spine. RAD/Abdomen Single View IMPRESSION: Fecal distention. Nonspecific gas pattern. Electronically Signed: Alfa Rachel MD at 3:56 EDT Tel , Service support , CC: Acacia Whaley TRANSPORTATION TECHNICIAN; Catrina Perry DO Jet Mechanic: Signed 20-May-2015 Dexa Bone Density Study (HP) Result: Comments: See Note; NOTES: [facility] Imaging Services [address] [place] [id number] Verdana 4d Dexa Bone Density Study (HP) MR#: [id number] Acct: [id number] Name : HERMAN LEONARD Rep #: [id number] : 1940 F 74 From: Michael Alonso MD PCP: Tessie Greene DO Status: REG CLI Study: Dexa Bone Density Study (HP) Date of Exam: 05/20/15 Exam# [id number] Zulema carney Dr: Tessie Greene DO STUDY: DUAL ENERGY X-RAY ABSORPTIOMETRY / DXA REASON FOR EXAM: Female, 74 years old. The patient is postmenopausal. Loss of height. TECHNIQUE: Bone Mineral Density (BMD) m easurements of lumbar spine and bilateral hips were obtained. COMPARISON: Comparison is made with prior study dated April 29, 2013 FINDINGS: Lumbar Spine ( L1-L4): g/cm2 (0.952) / T-score (-2.1) / Z-score (-0.4) Findings are suggestive of osteopenia with a moderate fracture risk. Left Femur Total: g/cm2 (0.740) / T-score (-2.1) / Z-score (-0.5) Left Fe moral Neck: g/cm2 (0.716) / T-score (-2.3) / Z-score (-0.5) Right Femur Total: g/cm2 (0.709) / T-score (-2.4) / Z-score (-0.8) Right Femoral Neck: g/cm2 (0.700) / T-score (-2.4) / Z-score (-0.6) The T-Scores on the most recent prior examination were: Lumbar Spine (L1-L4): There has been improvement of bone density since the previous examination. Left Femur Total: which represents a worsening of 4.9%. Right Femur Total: which represents an improvement of 0.7%. IMPRESSION: The patient is considered osteopenic as outlined below according to World Ezequiel Organization (WHO) criteria with a moderate fracture risk. There has been improvement of bone density since the previous examination. Reference Information: Th e T-score is the number of standard deviations above or below the standard which is normal for young adults at their peak bone mineral density. The World Health Organization (WHO) interprets the T-sco res as follows: Above -1 Normal bone density Between -1 and -2.5 Osteopenia Equal to / or below -2.5 Osteoporosis As a practical clinical guideline, osteopenia may be graded as follows: Mild -1 through -1.5 Moderate -1.6 through -2.0 Severe -2.1 through -2.4 The Z-score is the number of standard deviations above or below age-matched controls. A Z- score of less than -1.5 would be considere d abnormal. References: 1. NIH Osteoporosis and Related Bone Diseases http://www.osteo.org 2. International Society for Clinical Densitometry http://www.iscd.org 3. National Osteoporosis Foundation http://www.nof.org Electronically Signed: Michael Alonso MD at 10:30 EST Tel [phone], Service support [phone], CC: Jailyn Yang MD; Tessie Greene DO Jet Mechanic: Signed 06-Apr-2015 Bilat Scrn Digital AND CAD Result: Comments: See Note; NOTES: [facility] Imaging Services [address] [place] [address] Verdana 4d Bilat Scrn Digital AND CAD MR#: [id number] Acct: [id number] Name: HERMAN LEONARD Rep #: [id number] : 1940 F 74 From: Michael Alonso MD PCP: Tessie Greene DO Status: REG CLI Study: Bilat Scrn Digital AND CAD Date of Exam: 04/06/15 Exam# [id number] Ordering D r: Tessie Greene DO MAMMOGRAPHY - BILATERAL SCREENING REASON FOR EXAM: Female, 74 years old. Routine annual screening examination. PERTINENT HISTORY: Prior left stereotactic biopsy. TECHNIQUE: Digital examination. Mediolateral oblique (MLO) and craniocaudad (CC) views of both breasts were obtained. CAD: CAD was performed on this study. COMPARISON: Comparison is made with prior study dated March 27, 2014 and March 26, 2013. FINDINGS: Breast Composition: The breasts are heterogeneously dense, which may obscure small masses. There are no sarah nant masses or suspicious calcifications. The sterile at the tissue clip marker is seen in the upper outer aspect of the left breast. Tiny residual nodular density is seen within it. No other signif icant abnormalities are identified. There has been no significant change since the prior study. IMPRESSION: Stable bilateral screening mammogram. Yearly follow-u p recommended. (A) ASSESSMENT CATEGORY: BIRADS Category 2: Benign. A letter regarding these results will be sent to the patient by the facility within 30 days. Approximately 10% of breast cancers are not detected by mammography. A normal mammogram should not delay biopsy of a clinically suspicious abnormality. Electronically Signed: Michael Alonso MD at 7:54 EST Tel [phone], Service support [phone], CC: Tessie Greene DO Jet Mechanic: Signed 05-Feb-2015 EKG ([id number]) Comments: ekg showed normal sinus rhythym, normal axis, no acute st/t wave changes Result: [MEASUREMENTS ANALYSIS] Date of Test: 02/05/2015 09:47:50; Heart Rate: 58; CA Interval: 156; QRS: 93; QT Interval: 420; Corrected QT Interval (QTc): 417; P Wave [place]: 31; QRS Wave [place]: 31; T Wave [place]: 44; Blood Pressure: 122/84 [ECG DIAGNOSTIC STATEMENTS] Date of Test: 02/05/2015 09:47:50; Summary: Sinus Bradycardia WITHIN NORMAL LIMITS 27-Mar-2014 Bilat Scrn Digital & CAD Result: Comments: See Note; NOTES: [facility] Imaging Services [address] [place] [address] Breast Imaging Report MR#: [id number] Acct: [id number] Name: HERMAN LEONARD Rep #: [id number] : 1940 F 73 From: Michael Alonso MD PCP: Tessie Greene DO Status: REG CLI Exam# [id number] Ordering Dr: Tessie Greene DO MAMMOGRAPHY - BILATERAL SCREENING REASON FOR EXAM: Femal e, 73 years old. Routine annual screening examination. PERTINENT HISTORY: Prior left ultrasound-guided breast biopsy. TECHNIQUE: Digital examination. Mediolateral oblique (MLO) and craniocaudad (C C) views of both breasts were obtained. CAD: CAD was performed on this study. COMPARISON: Comparison is made with prior study dated March 26, 2013 and March 05, 2012. FINDINGS: Breast Composition: The breasts are heterogeneously dense, which may obscure small masses. There are no dominant masses or suspicious calcifications. A tissue marker clip is se en in the upper outer quadrant of the left breast secondary to prior biopsy. No other significant abnormalities are identified. There has been no significant change since the prior study. IMPRESSION: Stable bilateral screening mammogram. Yearly follow-up recommended. (A) ASSESSMENT CATEGORY: BIRADS Category 2: Benign f inding(s). A letter regarding these results will be sent to the patient by the facility within 30 days. Approximately 10% of breast cancers are not detected by mammography. A normal mammogram should not delay biopsy of a clinically suspicious abnormality. Electronically Signed: Michael Alonso MD at 9:36 EDT Tel [phone], Service support [phone], CC: Tessie Greene DO Jet Mechanic: Signed 26-Mar-2013 Bilat Scrn Digital & CAD Result: Comments: See Note; NOTES: [facility] Imaging Services [address] [place] [address] Breast Imaging Report MR#: [id number] Acct: [id number] Name: HERMAN LEONARD Rep #: [id number] : 1940 F 72 From: Michael Alonso MD PCP: Tessie Greene DO Status: REG CLI Exam# [id number] Ordering Dr: Tessie Greene DO MAMMOGRAPHY - BILATERAL SCREENING REASON FOR EXAM: Vera wang, 72 years old. Routine annual screening examination. PERTINENT HISTORY: Non- contributory. TECHNIQUE: Digital examination. Mediolateral oblique (MLO) and craniocaudad (CC) views of both breasts w ere obtained. CAD: CAD was performed on this study. COMPARISON: Comparison is made with prior examination dated March 05, 2012 and February 10, 2011. FINDINGS : The breast composition is heterogeneously dense - ranging from 51% to 75% of the breast tissue. There are no dominant masses or suspicious calcifications. The patient is status post left stereota ctic biopsy. No other significant abnormalities are identified. There has been no significant change since the prior study. IMPRESSION: Stable bilateral screen ing mammogram. Yearly follow-up recommended. (A) ASSESSMENT CATEGORY: BIRADS Category 2: Benign finding(s). A letter regarding these results will be sent to the patient by the facility within 30 days. Approximately 10% of breast cancers are not detected by mammography. A normal mammogram should not delay biopsy of a clinically suspicious abnormality. Sign ed: Michael Alosno M.D. March 26, 2013 at 2:33:33 PM EDT [phone] Electronically Signed GP/GP If you are the referring physician and would like to consult with the radiologist who pr ovided this interpretation, please contact Michael Alonso M.D. at [phone]. If this radiologist is unavailable, you will be directed to another radiologist to assist. If you are a patient w ith a question regarding this report, please contact your referring physician directly. Professional Interpretation Provided By: [employer], Phone , These documents contain legally protected and confidential health information intended only for the use of the individual or entity named above. If you are not the intended recipient, you are hereby notified that an y disclosure, copying, distribution, or other use of these documents is strictly prohibited. If you have received this information in error, please notify the sender immediately and arrange for the re turn or destruction of these documents. CC: Tessie Greene DO Jet Mechanic: Signed Immunization Name Dates Details Pneumococcal (2 years and up) on: 04-Apr-2006 Pneumococcal (2 years and up) on: 04-Apr-2006 Comments: Lot #:Expiration date:Amount given:Route: IMSite given:LEFT DELTOIDGiven by: EDILMA Weinberg Family History Unknown Family Member Name Dates Details Father Comments: MD Status: Active Mother Comments: CHF Status: Active Paternal Grandmother Comments: ABD CA Status: Active Social History Name Dates Details Alcohol Use Comments: Occasional alcohol use Status: Active Non Smoker/No Tobacco Use Status: Active Tobacco use: Never smoker. Status: Active Smoking Status Name Dates Details Never smoker Vital Signs Date Test Result Details [id number] Temperature 97.3 f Comments: Method: Temporal Pulse 63 /min Comments: Pattern: Regular Respiration Rate 16 /min Comments: Pattern: Unlabored O2 SAT 98 % Comments: Room air BP Systolic 152 mm[Hg] Comments: Patient Position: Sitting; Cuff Location: Left Arm; Cuff Size: Standard BP Diastolic 82 mm[Hg] Comments: Patient Position: Sitting; Cuff Location: Left Arm; Cuff Size: Standard Weight 127.375 lb Height 62.25 in Body Mass Index Calculated 23.11 kg/m2 Body Surface Area Calculated 1.58 m2 :59 Temperature 97.4 f Comments: Method: Temporal Pulse 71 /min Comments: Pattern: Regular Respiration Rate 16 /min Comments: Pattern: Unlabored O2 SAT 98 % Comments: Room air BP Systolic 163 mm[Hg] Comments: Patient Position: Sitting; Cuff Location: Left Arm; Cuff Size: Standard BP Diastolic 88 mm[Hg] Comments: Patient Position: Sitting; Cuff Location: Left Arm; Cuff Size: Standard Weight 131.375 lb Height 62.25 in Body Mass Index Calculated 23.84 kg/m2 Body Surface Area Calculated 1.6 m2 :28 Pulse 61 /min Comments: Pattern: Regular Respiration Rate 17 /min Comments: Pattern: Unlabored O2 SAT 99 % Comments: Room air BP Systolic 126 mm[Hg] Comments: Patient Position: Sitting; Cuff Location: Left Arm; Cuff Size: Standard BP Diastolic 78 mm[Hg] Comments: Patient Position: Sitting; Cuff Location: Left Arm; Cuff Size: Standard Weight 126.125 lb Height 62.25 in Body Mass Index Calculated 22.88 kg/m2 Body Surface Area Calculated 1.58 m2 :52 Temperature 97.6 f Pulse 68 /min Comments: Pattern: Regular Respiration Rate 16 /min Comments: Pattern: Unlabored O2 SAT 98 % Comments: Room air BP Systolic 146 mm[Hg] Comments: Patient Position: Sitting; Cuff Location: Left Arm; Cuff Size: Standard BP Diastolic 78 mm[Hg] Comments: Patient Position: Sitting; Cuff Location: Left Arm; Cuff Size: Standard Weight 126.125 lb Height 62.25 in Body Mass Index Calculated 22.88 kg/m2 Body Surface Area Calculated 1.58 m2 :20 Comments: 140/82 recheck bp Pulse 65 /min Comments: Pattern: Regular Respiration Rate 18 /min Comments: Pattern: Unlabored O2 SAT 98 % Comments: Room air BP Systolic 142 mm[Hg] Comments: Patient Position: Sitting; Cuff Location: Left Arm; Cuff Size: Standard BP Diastolic 80 mm[Hg] Comments: Patient Position: Sitting; Cuff Location: Left Arm; Cuff Size: Standard Weight 126.125 lb Height 62.25 in Body Mass Index Calculated 22.88 kg/m2 Body Surface Area Calculated 1.58 m2 :17 Temperature 98 f Comments: Method: Temporal Pulse 60 /min Comments: Pattern: Regular Respiration Rate 16 /min Comments: Pattern: Unlabored O2 SAT 99 % Comments: Room air BP Systolic 164 mm[Hg] Comments: Patient Position: Sitting; Cuff Location: Left Arm; Cuff Size: Standard BP Diastolic 98 mm[Hg] Comments: Patient Position: Sitting; Cuff Location: Left Arm; Cuff Size: Standard Weight 138 lb Height 62.25 in Body Mass Index Calculated 25.04 kg/m2 Body Surface Area Calculated 1.64 m2 :48 Temperature 97.7 f Comments: Method: Temporal Pulse 54 /min Comments: Pattern: Regular Respiration Rate 16 /min Comments: Pattern: Unlabored O2 SAT 99 % Comments: Room air BP Systolic 156 mm[Hg] Comments: Patient Position: Sitting; Cuff Location: Left Arm; Cuff Size: Standard BP Diastolic 90 mm[Hg] Comments: Patient Position: Sitting; Cuff Location: Left Arm; Cuff Size: Standard Weight 135 lb Height 62.25 in Body Mass Index Calculated 24.49 kg/m2 Body Surface Area Calculated 1.62 m2 :47 Pulse 61 /min Comments: Pattern: Regular Respiration Rate 18 /min Comments: Pattern: Unlabored O2 SAT 98 % Comments: Room air BP Systolic 128 mm[Hg] Comments: Patient Position: Sitting; Cuff Location: Left Arm; Cuff Size: Standard BP Diastolic 84 mm[Hg] Comments: Patient Position: Sitting; Cuff Location: Left Arm; Cuff Size: Standard Weight 139 lb Height 62.25 in Body Mass Index Calculated 25.22 kg/m2 Body Surface Area Calculated 1.64 m2 :23 Temperature 98.2 f Comments: Method: Tympanic Pulse 72 /min Comments: Pattern: Regular Respiration Rate 18 /min Comments: Pattern: Unlabored O2 SAT 99 % Comments: Room air BP Systolic 122 mm[Hg] Comments: Patient Position: Sitting; Cuff Location: Left Arm; Cuff Size: Standard BP Diastolic 78 mm[Hg] Comments: Patient Position: Sitting; Cuff Location: Left Arm; Cuff Size: Standard Weight 139 lb Height 62.25 in Body Mass Index Calculated 25.22 kg/m2 Body Surface Area Calculated 1.64 m2 :51 Temperature 98.6 f Comments: Method: Oral Pulse 54 /min Comments: Pattern: Regular Respiration Rate 16 /min Comments: Pattern: Unlabored BP Systolic 122 mm[Hg] Comments: Patient Position: Sitting; Cuff Location: Left Arm; Cuff Size: Standard BP Diastolic 84 mm[Hg] Comments: Patient Position: Sitting; Cuff Location: Left Arm; Cuff Size: Standard Weight 135 lb Height 62.25 in Body Mass Index Calculated 24.49 kg/m2 Body Surface Area Calculated 1.62 m2 :17 Temperature 97.8 f Comments: Method: Temporal Pulse 68 /min Comments: Pattern: Regular Respiration Rate 16 /min Comments: Pattern: Unlabored BP Systolic 134 mm[Hg] Comments: Patient Position: Sitting; Cuff Location: Left Arm; Cuff Size: Standard BP Diastolic 62 mm[Hg] Comments: Patient Position: Sitting; Cuff Location: Left Arm; Cuff Size: Standard Weight 133 lb Height 62.25 in Body Mass Index Calculated 24.13 kg/m2 Body Surface Area Calculated 1.61 m2 :17 Temperature 97.3 f Pulse 70 /min Comments: Pattern: Regular Respiration Rate 18 /min Comments: Pattern: Unlabored O2 SAT 95 % Comments: Room air BP Systolic 144 mm[Hg] Comments: Patient Position: Sitting; Cuff Location: Left Arm; Cuff Size: Standard BP Diastolic 80 mm[Hg] Comments: Patient Position: Sitting; Cuff Location: Left Arm; Cuff Size: Standard Weight 136 lb Height 62.25 in Body Mass Index Calculated 24.68 kg/m2 Body Surface Area Calculated 1.63 m2 :32 Temperature 96.6 f Comments: Method: Oral Pulse 66 /min Comments: Pattern: Regular Respiration Rate 16 /min Comments: Pattern: Unlabored BP Systolic 120 mm[Hg] Comments: Patient Position: Sitting; Cuff Location: Left Arm; Cuff Size: Standard BP Diastolic 86 mm[Hg] Comments: Patient Position: Sitting; Cuff Location: Left Arm; Cuff Size: Standard Weight 136 lb Height 62.25 in Body Mass Index Calculated 24.68 kg/m2 Body Surface Area Calculated 1.63 m2 :19 Temperature 97.7 f Pulse 73 /min Comments: Pattern: Regular Respiration Rate 16 /min Comments: Pattern: Unlabored BP Systolic 142 mm[Hg] Comments: Patient Position: Sitting; Cuff Location: Left Arm; Cuff Size: Standard BP Diastolic 68 mm[Hg] Comments: Patient Position: Sitting; Cuff Location: Left Arm; Cuff Size: Standard Weight 131 lb Height 62.25 in Body Mass Index Calculated 23.77 kg/m2 Body Surface Area Calculated 1.6 m2 :28 Temperature 99.4 f Comments: Method: Oral Pulse 71 /min Comments: Pattern: Regular Respiration Rate 16 /min Comments: Pattern: Unlabored BP Systolic 126 mm[Hg] Comments: Patient Position: Sitting; Cuff Location: Left Arm; Cuff Size: Standard BP Diastolic 80 mm[Hg] Comments: Patient Position: Sitting; Cuff Location: Left Arm; Cuff Size: Standard Weight 136 lb Height 62.25 in Body Mass Index Calculated 24.68 kg/m2 Body Surface Area Calculated 1.63 m2 :02 Temperature 97.5 f Pulse 68 /min Comments: Pattern: Regular Respiration Rate 16 /min Comments: Pattern: Unlabored BP Systolic 110 mm[Hg] Comments: Patient Position: Sitting; Cuff Location: Left Arm; Cuff Size: Standard BP Diastolic 82 mm[Hg] Comments: Patient Position: Sitting; Cuff Location: Left Arm; Cuff Size: Standard Weight 139 lb Height 62.25 in Body Mass Index Calculated 25.22 kg/m2 Body Surface Area Calculated 1.64 m2 :48 Temperature 97.1 f Pulse 68 /min Comments: Pattern: Regular Respiration Rate 16 /min Comments: Pattern: Unlabored BP Systolic 136 mm[Hg] Comments: Patient Position: Sitting; Cuff Location: Left Arm; Cuff Size: Standard BP Diastolic 84 mm[Hg] Comments: Patient Position: Sitting; Cuff Location: Left Arm; Cuff Size: Standard Weight 130 lb Height 62.25 in Body Mass Index Calculated 23.59 kg/m2 Body Surface Area Calculated 1.6 m2 :11 Temperature 96.6 f Pulse 64 /min Comments: Pattern: Regular Respiration Rate 16 /min Comments: Pattern: Unlabored BP Systolic 114 mm[Hg] Comments: Patient Position: Sitting; Cuff Location: Left Arm; Cuff Size: Standard BP Diastolic 74 mm[Hg] Comments: Patient Position: Sitting; Cuff Location: Left Arm; Cuff Size: Standard Weight 127 lb Height 62.25 in Body Mass Index Calculated 23.04 kg/m2 Body Surface Area Calculated 1.58 m2 :23 Temperature 97.8 f Pulse 66 /min Comments: Pattern: Regular Respiration Rate 16 /min Comments: Pattern: Unlabored BP Systolic 140 mm[Hg] Comments: Patient Position: Sitting; Cuff Location: Left Arm; Cuff Size: Standard BP Diastolic 88 mm[Hg] Comments: Patient Position: Sitting; Cuff Location: Left Arm; Cuff Size: Standard Weight 128 lb Height 62.25 in Body Mass Index Calculated 23.22 kg/m2 Body Surface Area Calculated 1.59 m2 :21 Temperature 97.5 f Pulse 68 /min Comments: Pattern: Regular Respiration Rate 16 /min Comments: Pattern: Unlabored BP Systolic 136 mm[Hg] Comments: Patient Position: Sitting; Cuff Location: Left Arm; Cuff Size: Large BP Diastolic 84 mm[Hg] Comments: Patient Position: Sitting; Cuff Location: Left Arm; Cuff Size: Large Weight 132 lb Height 62.25 in Body Mass Index Calculated 23.95 kg/m2 Body Surface Area Calculated 1.61 m2 :41 Temperature 98.1 f Pulse 72 /min Comments: Pattern: Regular Respiration Rate 16 /min Comments: Pattern: Unlabored BP Systolic 122 mm[Hg] Comments: Patient Position: Sitting; Cuff Location: Left Arm; Cuff Size: Large BP Diastolic 80 mm[Hg] Comments: Patient Position: Sitting; Cuff Location: Left Arm; Cuff Size: Large Weight 136 lb Height 62.25 in Body Mass Index Calculated 24.68 kg/m2 Body Surface Area Calculated 1.63 m2 :22 Temperature 97.4 f Pulse 76 /min Comments: Pattern: Regular Respiration Rate 16 /min Comments: Pattern: Unlabored BP Systolic 122 mm[Hg] Comments: Patient Position: Sitting; Cuff Location: Left Arm; Cuff Size: Large BP Diastolic 80 mm[Hg] Comments: Patient Position: Sitting; Cuff Location: Left Arm; Cuff Size: Large Weight 137 lb Height 62.25 in Body Mass Index Calculated 24.86 kg/m2 Body Surface Area Calculated 1.63 m2 :47 Temperature 97.1 f Comments: Method: Oral Pulse 64 /min Comments: Pattern: Regular Respiration Rate 20 /min Comments: Pattern: Labored BP Systolic 120 mm[Hg] Comments: Patient Position: Sitting; Cuff Location: Left Arm; Cuff Size: Standard BP Diastolic 62 mm[Hg] Comments: Patient Position: Sitting; Cuff Location: Left Arm; Cuff Size: Standard Weight 141.25 lb Height 62.25 in Body Mass Index Calculated 25.63 kg/m2 Body Surface Area Calculated 1.65 m2 :18 Temperature 97.6 f Comments: Method: Oral Pulse 72 /min Comments: Pattern: Regular Respiration Rate 18 /min Comments: Pattern: Unlabored Weight 145 lb Height 62.25 in Body Mass Index Calculated 26.31 kg/m2 Body Surface Area Calculated 1.67 m2 :53 Temperature 97.2 f Pulse 56 /min Comments: Pattern: Regular Respiration Rate 16 /min Comments: Pattern: Unlabored BP Systolic 142 mm[Hg] Comments: Patient Position: Sitting; Cuff Location: Left Arm; Cuff Size: Large BP Diastolic 80 mm[Hg] Comments: Patient Position: Sitting; Cuff Location: Left Arm; Cuff Size: Large Weight 145 lb Height 62.25 in Body Mass Index Calculated 26.31 kg/m2 Body Surface Area Calculated 1.67 m2 :49 Comments: pain quality -- pulling Temperature 98.2 f Comments: Method: Oral Pulse 60 /min Comments: Pattern: Regular Respiration Rate 16 /min Comments: Pattern: Unlabored BP Systolic 140 mm[Hg] Comments: Patient Position: Sitting; Cuff Location: Left Arm; Cuff Size: Standard BP Diastolic 74 mm[Hg] Comments: Patient Position: Sitting; Cuff Location: Left Arm; Cuff Size: Standard Weight 141 lb Height 62.25 in Body Mass Index Calculated 25.58 kg/m2 Body Surface Area Calculated 1.65 m2 :14 Comments: Unable to get weight today, scale wouldnt register Temperature 97.6 f Comments: Method: Oral Pulse 62 /min Comments: Pattern: Regular Respiration Rate 14 /min Comments: Pattern: Unlabored BP Systolic 108 mm[Hg] Comments: Patient Position: Sitting; Cuff Location: Left Arm; Cuff Size: Standard BP Diastolic 66 mm[Hg] Comments: Patient Position: Sitting; Cuff Location: Left Arm; Cuff Size: Standard Weight 141 lb Height 62.25 in Body Mass Index Calculated 25.58 kg/m2 Body Surface Area Calculated 1.65 m2 :11 Temperature 96.3 f Pulse 68 /min Comments: Pattern: Regular Respiration Rate 16 /min Comments: Pattern: Unlabored BP Systolic 100 mm[Hg] Comments: Patient Position: Sitting; Cuff Location: Left Arm; Cuff Size: Standard BP Diastolic 70 mm[Hg] Comments: Patient Position: Sitting; Cuff Location: Left Arm; Cuff Size: Standard Weight 141 lb Height 62.25 in Body Mass Index Calculated 25.58 kg/m2 Body Surface Area Calculated 1.65 m2 :20 Temperature 97 f Pulse 67 /min Comments: Pattern: Regular Respiration Rate 17 /min Comments: Pattern: Unlabored BP Systolic 142 mm[Hg] Comments: Patient Position: Sitting; Cuff Location: Left Arm; Cuff Size: Standard BP Diastolic 80 mm[Hg] Comments: Patient Position: Sitting; Cuff Location: Left Arm; Cuff Size: Standard Weight 132 lb Height 62.25 in Body Mass Index Calculated 23.95 kg/m2 Body Surface Area Calculated 1.61 m2 :58 Temperature 97.8 f Comments: Method: Oral Pulse 64 /min Comments: Pattern: Regular Respiration Rate 20 /min Comments: Pattern: Unlabored BP Systolic 112 mm[Hg] Comments: Patient Position: Sitting; Cuff Location: Left Arm; Cuff Size: Large BP Diastolic 76 mm[Hg] Comments: Patient Position: Sitting; Cuff Location: Left Arm; Cuff Size: Large Weight 132 lb Height 62.25 in Body Mass Index Calculated 23.95 kg/m2 Body Surface Area Calculated 1.61 m2 :54 Temperature 97 f Pulse 80 /min Comments: Pattern: Regular Respiration Rate 16 /min Comments: Pattern: Unlabored BP Systolic 118 mm[Hg] Comments: Patient Position: Sitting; Cuff Location: Left Arm; Cuff Size: Large BP Diastolic 70 mm[Hg] Comments: Patient Position: Sitting; Cuff Location: Left Arm; Cuff Size: Large Weight 135 lb Height 62.25 in Body Mass Index Calculated 24.49 kg/m2 Body Surface Area Calculated 1.62 m2 :17 Temperature 97.9 f Comments: Method: Oral Pulse 74 /min Comments: Pattern: Regular Respiration Rate 16 /min Comments: Pattern: Unlabored BP Systolic 118 mm[Hg] Comments: Patient Position: Sitting; Cuff Location: Left Arm; Cuff Size: Standard BP Diastolic 70 mm[Hg] Comments: Patient Position: Sitting; Cuff Location: Left Arm; Cuff Size: Standard Weight 140 lb Height 62.25 in Body Mass Index Calculated 25.4 kg/m2 Body Surface Area Calculated 1.65 m2 :58 Temperature 98 f Comments: Method: Oral Pulse 68 /min Comments: Pattern: Regular Respiration Rate 16 /min Comments: Pattern: Unlabored BP Systolic 120 mm[Hg] Comments: Patient Position: Sitting; Cuff Location: Left Arm; Cuff Size: Standard BP Diastolic 64 mm[Hg] Comments: Patient Position: Sitting; Cuff Location: Left Arm; Cuff Size: Standard Weight 140 lb Height 62.25 in Body Mass Index Calculated 25.4 kg/m2 Body Surface Area Calculated 1.65 m2 :22 Temperature 97 f Comments: Method: Oral Pulse 76 /min Comments: Pattern: Regular Respiration Rate 16 /min Comments: Pattern: Unlabored O2 SAT 98 % Comments: Room air BP Systolic 126 mm[Hg] Comments: Patient Position: Sitting; Cuff Location: Left Arm; Cuff Size: Standard BP Diastolic 80 mm[Hg] Comments: Patient Position: Sitting; Cuff Location: Left Arm; Cuff Size: Standard Weight 140.125 lb Height 62.5 in Body Mass Index Calculated 25.22 kg/m2 Body Surface Area Calculated 1.65 m2 :38 Temperature 97.5 f Comments: Method: Oral Pulse 64 /min Comments: Pattern: Regular Respiration Rate 18 /min Comments: Pattern: Unlabored BP Systolic 128 mm[Hg] Comments: Patient Position: Sitting; Cuff Location: Left Arm; Cuff Size: Standard BP Diastolic 80 mm[Hg] Comments: Patient Position: Sitting; Cuff Location: Left Arm; Cuff Size: Standard Weight 143.125 lb Height 62.5 in Body Mass Index Calculated 25.76 kg/m2 Body Surface Area Calculated 1.67 m2 :08 Pulse 64 /min Comments: Pattern: Regular Respiration Rate 20 /min Comments: Pattern: Unlabored BP Systolic 120 mm[Hg] Comments: Patient Position: Sitting; Cuff Location: Left Arm; Cuff Size: Large BP Diastolic 80 mm[Hg] Comments: Patient Position: Sitting; Cuff Location: Left Arm; Cuff Size: Large Weight 142 lb :48 Temperature 97.7 f Comments: Method: Oral Pulse 68 /min Comments: Pattern: Regular Respiration Rate 17 /min Comments: Pattern: Unlabored BP Systolic 122 mm[Hg] Comments: Patient Position: Sitting; Cuff Location: Left Arm; Cuff Size: Standard BP Diastolic 70 mm[Hg] Comments: Patient Position: Sitting; Cuff Location: Left Arm; Cuff Size: Standard Weight 142 lb :01 Temperature 97.4 f Comments: Method: Oral Pulse 72 /min Comments: Pattern: Regular Respiration Rate 16 /min Comments: Pattern: Unlabored BP Systolic 122 mm[Hg] Comments: Patient Position: Sitting; Cuff Location: Left Arm; Cuff Size: Standard BP Diastolic 82 mm[Hg] Comments: Patient Position: Sitting; Cuff Location: Left Arm; Cuff Size: Standard Weight 142 lb :58 Temperature 98.1 f Pulse 64 /min Comments: Pattern: Regular Respiration Rate 18 /min Comments: Pattern: Unlabored BP Systolic 122 mm[Hg] Comments: Patient Position: Sitting; Cuff Location: Left Arm; Cuff Size: Standard BP Diastolic 70 mm[Hg] Comments: Patient Position: Sitting; Cuff Location: Left Arm; Cuff Size: Standard :13 Pulse 74 /min Comments: Pattern: Regular Respiration Rate 18 /min Comments: Pattern: Unlabored BP Systolic 118 mm[Hg] Comments: Patient Position: Sitting; Cuff Location: Left Arm; Cuff Size: Standard BP Diastolic 76 mm[Hg] Comments: Patient Position: Sitting; Cuff Location: Left Arm; Cuff Size: Standard Weight 142 lb :42 Temperature 97.2 f Comments: Method: Oral Pulse 72 /min Comments: Pattern: Regular Respiration Rate 18 /min Comments: Pattern: Unlabored BP Systolic 110 mm[Hg] Comments: Patient Position: Sitting; Cuff Location: Left Arm; Cuff Size: Standard BP Diastolic 80 mm[Hg] Comments: Patient Position: Sitting; Cuff Location: Left Arm; Cuff Size: Standard Weight 136 lb :02 Temperature 97.5 f Comments: Method: Undefined Pulse 64 /min Comments: Pattern: Regular Respiration Rate 18 /min Comments: Pattern: Undefined BP Systolic 128 mm[Hg] Comments: Patient Position: Sitting; Cuff Location: Left Arm; Cuff Size: Standard BP Diastolic 84 mm[Hg] Comments: Patient Position: Sitting; Cuff Location: Left Arm; Cuff Size: Standard Weight 136 lb Height 0 in Head Circumference 0.00 cm :56 Temperature 97.8 f Comments: Method: Undefined Pulse 88 /min Comments: Pattern: Regular Respiration Rate 18 /min Comments: Pattern: Undefined BP Systolic 102 mm[Hg] Comments: Patient Position: Sitting; Cuff Location: Right Arm; Cuff Size: Standard BP Diastolic 74 mm[Hg] Comments: Patient Position: Sitting; Cuff Location: Right Arm; Cuff Size: Standard Weight 0 lb Height 0 in Head Circumference 0.00 cm :14 Temperature 98 f Comments: Method: Undefined Pulse 60 /min Comments: Pattern: Regular Respiration Rate 18 /min Comments: Pattern: Undefined BP Systolic 138 mm[Hg] Comments: Patient Position: Sitting; Cuff Location: Left Arm; Cuff Size: Standard BP Diastolic 74 mm[Hg] Comments: Patient Position: Sitting; Cuff Location: Left Arm; Cuff Size: Standard Weight 138 lb Height 0 in Head Circumference 0.00 cm :00 Pulse 64 /min Comments: Pattern: Regular Respiration Rate 20 /min Comments: Pattern: Unlabored BP Systolic 122 mm[Hg] Comments: Patient Position: Sitting; Cuff Location: Left Arm; Cuff Size: Large BP Diastolic 60 mm[Hg] Comments: Patient Position: Sitting; Cuff Location: Left Arm; Cuff Size: Large Weight 134 lb Height 0 in Head Circumference 0.00 cm :20 Temperature 98 f Comments: Method: Undefined Pulse 68 /min Comments: Pattern: Regular Respiration Rate 16 /min Comments: Pattern: Undefined BP Systolic 148 mm[Hg] Comments: Patient Position: Sitting; Cuff Location: Left Arm; Cuff Size: Large BP Diastolic 88 mm[Hg] Comments: Patient Position: Sitting; Cuff Location: Left Arm; Cuff Size: Large Weight 134 lb Height 0 in Head Circumference 0.00 cm :00 Temperature 96.9 f Comments: Method: Undefined Pulse 64 /min Comments: Pattern: Regular Respiration Rate 16 /min Comments: Pattern: Undefined BP Systolic 138 mm[Hg] Comments: Patient Position: Sitting; Cuff Location: Right Arm; Cuff Size: Standard BP Diastolic 80 mm[Hg] Comments: Patient Position: Sitting; Cuff Location: Right Arm; Cuff Size: Standard Weight 132 lb Height 0 in Head Circumference 0.00 cm :24 Temperature 95.9 f Comments: Method: Oral Pulse 72 /min Comments: Pattern: Regular Respiration Rate 17 /min Comments: Pattern: Unlabored BP Systolic 124 mm[Hg] Comments: Patient Position: Sitting; Cuff Location: Left Arm; Cuff Size: Standard BP Diastolic 70 mm[Hg] Comments: Patient Position: Sitting; Cuff Location: Left Arm; Cuff Size: Standard Weight 131 lb Height 62.25 in Body Mass Index Calculated 23.77 kg/m2 Body Surface Area Calculated 1.6 m2 Head Circumference 0.00 cm :57 Temperature 97.9 f Comments: Method: Undefined Pulse 64 /min Comments: Pattern: Regular Respiration Rate 16 /min Comments: Pattern: Undefined BP Systolic 122 mm[Hg] Comments: Patient Position: Sitting; Cuff Location: Right Arm; Cuff Size: Standard BP Diastolic 70 mm[Hg] Comments: Patient Position: Sitting; Cuff Location: Right Arm; Cuff Size: Standard Weight 131 lb Height 62.25 in Body Mass Index Calculated 23.77 kg/m2 Body Surface Area Calculated 1.6 m2 Head Circumference 0.00 cm :52 Temperature 99 f Comments: Method: Undefined Pulse 96 /min Comments: Pattern: Regular Respiration Rate 18 /min Comments: Pattern: Undefined BP Systolic 114 mm[Hg] Comments: Patient Position: Sitting; Cuff Location: Right Arm; Cuff Size: Standard BP Diastolic 64 mm[Hg] Comments: Patient Position: Sitting; Cuff Location: Right Arm; Cuff Size: Standard Weight 0 lb Height 0 in Head Circumference 0.00 cm :18 Temperature 97.7 f Comments: Method: Undefined Pulse 72 /min Comments: Pattern: Regular Respiration Rate 16 /min Comments: Pattern: Undefined BP Systolic 110 mm[Hg] Comments: Patient Position: Sitting; Cuff Location: Left Arm; Cuff Size: Large BP Diastolic 74 mm[Hg] Comments: Patient Position: Sitting; Cuff Location: Left Arm; Cuff Size: Large Weight 151 lb Height 0 in Head Circumference 0.00 cm :27 Temperature 98 f Comments: Method: Oral Pulse 68 /min Comments: Pattern: Regular Respiration Rate 16 /min Comments: Pattern: Unlabored BP Systolic 120 mm[Hg] Comments: Patient Position: Sitting; Cuff Location: Right Arm; Cuff Size: Standard BP Diastolic 76 mm[Hg] Comments: Patient Position: Sitting; Cuff Location: Right Arm; Cuff Size: Standard Weight 157 lb Height 0 in Head Circumference 0.00 cm :51 Pulse 80 /min Comments: Pattern: Regular Respiration Rate 16 /min Comments: Pattern: Unlabored BP Systolic 140 mm[Hg] Comments: Patient Position: Sitting; Cuff Location: Left Arm; Cuff Size: Standard BP Diastolic 80 mm[Hg] Comments: Patient Position: Sitting; Cuff Location: Left Arm; Cuff Size: Standard Weight 159.375 lb Height 0 in Head Circumference 0.00 cm :12 Temperature 98.3 f Comments: Method: Oral Pulse 76 /min Comments: Pattern: Regular Respiration Rate 16 /min Comments: Pattern: Unlabored BP Systolic 116 mm[Hg] Comments: Patient Position: Sitting; Cuff Location: Left Arm; Cuff Size: Standard BP Diastolic 90 mm[Hg] Comments: Patient Position: Sitting; Cuff Location: Left Arm; Cuff Size: Standard Weight 0 lb Height 0 in Head Circumference 0.00 cm :02 Temperature 97.4 f Comments: Method: Oral Pulse 56 /min Comments: Pattern: Regular Respiration Rate 16 /min Comments: Pattern: Unlabored BP Systolic 154 mm[Hg] Comments: Patient Position: Sitting; Cuff Location: Left Arm; Cuff Size: Standard BP Diastolic 104 mm[Hg] Comments: Patient Position: Sitting; Cuff Location: Left Arm; Cuff Size: Standard Weight 0 lb Height 0 in Head Circumference 0.00 cm :08 Temperature 98.2 f Comments: Method: Oral Pulse 68 /min Comments: Pattern: Regular Respiration Rate 16 /min Comments: Pattern: Unlabored BP Systolic 128 mm[Hg] Comments: Patient Position: Sitting; Cuff Location: Left Arm; Cuff Size: Large BP Diastolic 102 mm[Hg] Comments: Patient Position: Sitting; Cuff Location: Left Arm; Cuff Size: Large Weight 0 lb Height 0 in Head Circumference 0.00 cm :54 Temperature 97.6 f Comments: Method: Oral Pulse 60 /min Comments: Pattern: Regular Respiration Rate 16 /min Comments: Pattern: Unlabored BP Systolic 122 mm[Hg] Comments: Patient Position: Sitting; Cuff Location: Right Arm; Cuff Size: Standard BP Diastolic 80 mm[Hg] Comments: Patient Position: Sitting; Cuff Location: Right Arm; Cuff Size: Standard Weight 153.5625 lb Height 0 in Head Circumference 0.00 cm :21 Temperature 98.1 f Comments: Method: Oral Pulse 68 /min Comments: Pattern: Regular Respiration Rate 16 /min Comments: Pattern: Unlabored BP Systolic 120 mm[Hg] Comments: Patient Position: Sitting; Cuff Location: Right Arm; Cuff Size: Standard BP Diastolic 68 mm[Hg] Comments: Patient Position: Sitting; Cuff Location: Right Arm; Cuff Size: Standard Weight 146 lb Height 63 in Body Mass Index Calculated 25.86 kg/m2 Body Surface Area Calculated 1.69 m2 Head Circumference 0.00 cm Results Date Description Value Details :00 ASP DONE IN LAB See Note (Normal) Comments: [facility] [id number] [place], [place], [id number] Comments: Patient: HERMAN LEONARD : 1940 (77/F) Acct Num: [id number] Phys: [place] Unit Num: [id number] Loc: LAB Specimen: [id number] Received: 04/17/188 Spec Type: ASP HERE TISSUES 1 TISSUES: Neck, NOS COMMENT The specimen is evaluated at the time of FNA by Dr. Arellano. Immediate Evaluation = Macrophages consistent with benign cyst c ontents. The specimen contains macrophages, degenerating cellular debris and amorphous proteinaceous material. The lesion may represent a degenerating cyst. Clinical correlation is suggested. Yimi e has been reviewed in consultation with Dr. Hernandez who concurs with the abovediagnosis. IDC:[id number] CYTOLOGY GROSS Received is 0.5 ml of reddish fluid labeled with the patient's name, and designated Right neck mass. 5 imprints and 3 paps are made from the submitted fluid and the rest is added to CytoLyt for cell block preparation. Submitted for cytology study. TC: 5 CPT: 79790, 783959, 80937 , 19169 CYTOLOGY STUDY Slides are reviewed. DIAGNOSIS CYTOLOGY Fine needle aspiration, right neck mass (smear, cell block): Negative for malignant cells. See comment. AM:sp 04/18/18 HEADER OPERATION: FNA, right neck mass PRE-OP DIAGNOSIS: Right neck mass TISSUE SUBMITTED: Right neck mass Signed [facility] 04/18/18 <signature on file> [id number] CREATININE FINGERSTICK Comments: [facility] LaboratoryPoint of [address] [place] [address] EGFR WB > 60.0000 mL/min (Normal) CREATININE WB 0.8 mg/dL (Normal) Range: 0.55-1.02 :40 Bilirubin, Direct Comments: Order Date: 03/13/17Order Info: [id number] - *Hepatic Function PanelOrder Info: [id number] - *Lipid Profile CC PCPComments: 12 hours fasting, may have water.DR PÉREZ ORDERED LIPID/LIVERDR VICKY ORDERED TS H/CBCD/LIPID/CMP/UA/[facility] [address] [place], [address] D BILI 0.11 mg/dL (Normal) Range: 0.00-0.30 :40 CBC W/Diff, Automated Comments: DR PÉREZ ORDERED LIPID/LIVERDR VICKY ORDERED TSH/CBCD/LIPID/CMP/UA/[facility] [address] [place], [address] SMEAR COMMENT SCANNED (Normal) Absolute Lymph 2.16 {X10_3/ul} (Normal) Range: 0.83-4.51 Absolute Neut 2.7 {X10_3/uL} (Normal) Range: 2.0-7.7 IM GRAN % 0.000 % (Normal) Range: 0.0-0.9 Comments: IG% - Immature Granulocytes (promyelocytes, myelocytes andmetamyelocytes) > 1% indicates that a LEFT SHIFT is Present. BASO% 2.2 % (Abnormal) Range: 0-1 EO% 4.0 % (Normal) Range: 0-5 MONO% 11.0 % (Abnormal) Range: 0-10 LY% 37.2 % (Normal) Range: 19-41 NEUT% 45.6 % (Abnormal) Range: 47-70 MPV 11.5 fL (Normal) Range: 6.2-12.0 PLT 262 K/mm3 (Normal) Range: 150-450 RDW SD 43.6 fL (Normal) Range: 35.1-43.9 RDW CV 13.2 % (Normal) Range: 11.6-14.6 MCHC 33.2 {g/gl} (Normal) Range: 32-36 MCH 30.5 pg (Normal) Range: 27.0-32.0 MCV 91.7 fL (Normal) Range: 81-99 HCT 38.8 % (Normal) Range: 37-47 HGB 12.9 g/dL (Normal) Range: 12.0-15.0 RBC 4.23 {M/mm3} (Normal) Range: 4.2-5.4 WBC 5.8 K/mm3 (Normal) Range: 4.4-11.0 [id number] Comprehensive Metabolic Comments: Order Date: 03/13/17Order Info: [id number] - *Hepatic Function PanelOrder Info: [id number] - *Lipid Profile CC PCPComments: 12 hours fasting, may have water.DR PÉREZ ORDERED LIPID/LIVERDR VICKY ORDERED TS Profil H/CBCD/LIPID/CMP/UA/[facility] [address] [place], [address] GAP 5 (Normal) Range: 5-15 CO2 32.0 mmol/L (Normal) Range: 21.0-32.0 CL 103 mmol/L (Normal) Range: 98-107 K 4.1 mmol/L (Normal) Range: 3.5-5.1 NA 140 mmol/L (Normal) Range: 136-145 T BILI 0.30 mg/dL (Normal) Range: 0.20-1.00 ALT 28 U/L (Normal) Range: 13-56 ALK P 63 U/L (Normal) Range: 45-117 AST 27 U/L (Normal) Range: 15-37 CA 9.0 mg/dL (Normal) Range: 8.5-10.1 A/G 1.0 {RATIO} (Normal) Range: 0.9-2.4 GLOB 3.7 g/dL (Normal) Range: 2.2-4.2 ALB 3.6 g/dL (Normal) Range: 3.2-5.0 T PROT 7.3 g/dL (Normal) Range: 6.4-8.2 BUN/CRE 23.7 {RATIO} (Abnormal) Range: 10-20 EST GFR - AA 102 mL/min (Normal) Comments: GFR Calc EST GFR 84 mL/min (Normal) Comments: Non- GFR Calc CREAT,SERUM 0.72 mg/dL (Normal) Range: 0.55-1.02 Comments: The validity of the calculated GFR AND GFRAA in patients over70 years has not been determined. Clinical correlation isessential. BUN 17 mg/dL (Normal) Range: 7-18 GLU 86 mg/dL (Normal) Range: 74-106 Comments: Please note revised GLUCOSE reference range envzzgces13/02/2018. [id number] Lipid Profile Comments: Order Date: 03/13/17Order Info: [id number] - *Hepatic Function PanelOrder Info: [id number] - *Lipid Profile CC PCPComments: 12 hours fasting, may have water.DR PÉREZ ORDERED LIPID/LIVERDR VICKY ORDERED TS H/CBCD/LIPID/CMP/UA/[facility] [address] [place], [place], [id number] VLDL 11 mg/dL (Normal) Range: 5-40 LDL 51 mg/dL (Normal) Range: 0-130 HDL 43 mg/dL (Normal) Comments: The drugs N-Acetylcysteine and Metamizole may falselydepress this assay. Reference Range HDL <40 mg/dL Low HDL Cholesterol HDL >or= 60 mg/dL High HDL Cholesterol TRIG 54 mg/dL (Normal) Comments: The drugs N-Acetylcysteine and Metamizole may falselydepress this assay.Serum Triglycerides Reference Interval Normal <150 mg/dL Borderline high 150 - 199 mg/dL High 200 - 499 mg/dL Very High > or = 500 mg/dL CHOL 105 mg/dL (Normal) Comments: <200 mg/dL Desirable 200-240 mg/dL Borderline >240 mg/dL High Risk :40 Microalb:Creat Comments: DR PÉREZ ORDERED LIPID/JUNIOR PERRY ORDERED TSH/CBCD/LIPID/CMP/UA/[facility] [address] [place], [address] Ratio,Random UR MALB:CREAT 9.7 {mg/g_CRE} (Normal) MICROALBUMIN,UR 5.3 mg/L (Normal) UR CREAT 55.10 mg/dL (Normal) :40 Thyroid Stim Hormone Comments: Order Date: 03/13/17Order Info: [id number] - *Hepatic Function PanelOrder Info: [id number] - *Lipid Profile CC PCPComments: 12 hours fasting, may have water.DR PÉREZ ORDERED JUAN/JUNIOR PERRY ORDERED TS (TSH) H/CBCD/LIPID/CMP/UA/[facility] [address] [place], [address] TSH 1.84 {uIU/mL} (Normal) Range: 0.358-3.74 :40 Urinalysis, Complete Comments: DR PÉREZ ORDERED LIPID/JUNIOR PERRY ORDERED TSH/CBCD/LIPID/CMP/UA/MIACREHow was Urine Obtained? [facility] [address] [place], [address] MUCUS, URINE 0 SEEN {/hpf} (Normal) BACTERIA 0 SEEN {/hpf} (Normal) SQUAM EPI 0 SEEN {/hpf} (Normal) Range: 5-10 RBC-UA 0-5 SEEN {/hpf} (Normal) Range: 0-5 WBC 0-5 SEEN {/hpf} (Normal) Range: 0-5 LEUK ESTERASE 25 /ul (Abnormal) OCCULT BLOOD-UR 10 /ul (Abnormal) NITRITE UR Negative (Normal) UROBILI Normal mg/dL (Normal) PROT DIPSTX Negative mg/dL (Normal) pH UR 7.0 (Normal) Range: 5.0 - 8.0 SP.GR. DIPSTX 1.005 (Normal) Range: 1.002-1.030 KETONE UR Negative mg/dL (Normal) BILIRUBIN URINE Negative mg/dL (Normal) GLUCOSE, UR Normal mg/dL (Normal) CLARITY Clear (Normal) COLOR Yellow (Normal) [id number] URINE ALEX CULTURE-IDENTIFICATN Comments: PATIENT NOT FASTINGPERFORMED BY: [facility]imqcu[facility] [id number] Information: [id number] ([id number]) Result 1 CNSNSS (Abnormal) Comments: Coagulase negative Staphylococcus species, not Staphylococcussaprophyticus.50,000-100,000 colony forming units per mLBased on resistance to oxacillin this isolate would be resistant toall currently avai lable beta-lactam antimicrobial agents, with theexception of the newer cephalosporins with anti-MRSA activity, such asCeftaroline S = Susceptible; I = Intermediate; R = Resistant P = Positive; N = Negative MICS are expressed in micrograms per mL Antibiotic RSLT#1 RSLT#2 RSLT#3 RSLT#4Ciprofloxacin RGentamicin SLevofloxacin RLinezolid SNitrofurantoin SOxacillin RPenicillin RQuinupristin/Dalfopristin SRifampin STetracycline STrimethoprim/Sulfa SVancomycin S Urine Final report Culture,Compreh (Abnormal) omer [id number] Urinalysis, Office (19806) UA - LEUKOCYTE ESTERASE Small (Normal) UA - NITRITE Negative (Normal) URINE UROBILINGN JASMINE TIMED Normal mg/dL (Normal) UA - PROTEIN Negative mg/dL (Normal) UA - PH 7 (Normal) UA - BLOOD non-hemolyzed trace (Normal) UA - SPECIFIC GRAVITY 1.015 (Normal) UA - KETONES Negative mg/dL (Normal) UA - BILIRUBIN Negative (Normal) UA - GLUCOSE Negative (Normal) [id number] Basic Metabolic Profile (BMP) Comments: [facility] [address] [place], [address] ; will review at appt GAP 6 (Normal) Range: 5-15 CO2 28.0 mmol/L (Normal) Range: 21.0-32.0 CL 106 mmol/L (Normal) Range: 98-107 K 3.9 mmol/L (Normal) Range: 3.5-5.1 NA 140 mmol/L (Normal) Range: 136-145 CA 9.2 mg/dL (Normal) Range: 8.5-10.1 BUN/CRE 26.2 {RATIO} (Abnormal) Range: 10-20 EST GFR - AA 96 mL/min (Normal) Comments: GFR Calc EST GFR 79 mL/min (Normal) Comments: Non- GFR Calc CREAT,SERUM 0.76 mg/dL (Normal) Range: 0.55-1.20 Comments: The validity of the calculated GFR AND GFRAA in patients over70 years has not been determined. Clinical correlation isessential. BUN 20 mg/dL (Abnormal) Range: 7-18 GLU 87 mg/dL (Normal) Range: 70-110 [id number] URINE ALEX CULTURE (JASMINE Comments: PATIENT NOT FASTINGPERFORMED BY: [facility] [facility] [id number] Information: [place] [id number] [place] COUNT) ([id number]) Result 1 NG36 (Normal) Comments: No growth in 36 - 48 hours. Urine Culture,Comprehensive Final report (Normal) [id number] Urinalysis, Office (52520) UA - LEUKOCYTE ESTERASE Negative (Normal) UA - NITRITE Negative (Normal) URINE UROBILINGN JASMINE TIMED Normal mg/dL (Normal) UA - PROTEIN Negative mg/dL (Normal) UA - PH 6.5 (Normal) UA - BLOOD Hemolyzed Trace (Normal) UA - SPECIFIC GRAVITY 1.010 (Normal) UA - KETONES Negative mg/dL (Normal) UA - BILIRUBIN Negative (Normal) UA - GLUCOSE Negative (Normal) [id number] URINE ALEX CULTURE (JASMINE Comments: PATIENT NOT FASTINGPERFORMED BY: [facility] [address] [facility] [id number] Information: SRC[place] [place] [id number] COL COUNT) ([id number]) Antimicrobial MIHEAD (Normal) Comments: S = Susceptible; I = Intermediate; R = Resistant P = Positive; N = Negative MICS are expressed in micrograms per mL Antibiotic RSLT#1 RSLT#2 RS Susceptibility LT#3 RSLT#4Amoxicillin/Clavulanic Acid SAmpicillin SCefepime SCeftriaxone SCefuroxime SCephalothin SCiprofloxacin SErtapenem SGentamicin SImipenem SLevofloxacin SNitrofurantoin SPipera cillin STetracycline STobramycin STrimethoprim/Sulfa S Result 1 Escherichia coli Comments: 50,000-100,000 colony forming units per mL (Abnormal) Urine Final report Culture,Comprehensive (Abnormal) [id number]-Vyt-[id number] Urinalysis, Office (98892) UA - LEUKOCYTE ESTERASE Small (Normal) UA - NITRITE Negative (Normal) URINE UROBILINGN JASMINE TIMED Normal mg/dL (Normal) UA - PROTEIN Negative mg/dL (Normal) UA - PH 6.5 (Normal) UA - BLOOD Non Hemolyzed Trace (Normal) UA - SPECIFIC GRAVITY 1.010 (Normal) UA - KETONES Negative mg/dL (Normal) UA - BILIRUBIN Negative (Normal) UA - GLUCOSE Negative (Normal) 02-Feb-20157:28 Comprehensive Metabolic Profil Comments: Test performed at:[facility] [address] [place], [place] [address] GAP 6 (Normal) Range: 5-15 CO2 29.0 mmol/L (Normal) Range: 21.0-32.0 CL 107 mmol/L (Normal) Range: 98-107 K 3.9 mmol/L (Normal) Range: 3.5-5.1 NA 142 mmol/L (Normal) Range: 136-145 T BILI 0.40 mg/dL (Normal) Range: 0.20-1.00 ALT 24 U/L (Normal) Range: 12-78 ALK P 70 U/L (Normal) Range: 50-136 AST 21 U/L (Normal) Range: 15-37 CA 8.9 mg/dL (Normal) Range: 8.5-10.1 A/G 1.1 {RATIO} (Normal) Range: 0.9-2.4 GLOB 3.3 g/dL (Normal) Range: 2.3-3.5 ALB 3.7 g/dL (Normal) Range: 3.4-5.0 T PROT 7.0 g/dL (Normal) Range: 6.4-8.2 BUN/CRE 25.9 {RATIO} (Abnormal) Range: 10-20 CREAT,SERUM 0.81 mg/dL (Normal) Range: 0.55-1.20 Comments: Please note revised CREATININE reference range /22/2015. BUN 21 mg/dL (Abnormal) Range: 7-18 GLU 85 mg/dL (Normal) Range: 70-110 :28 Lipid Profile Comments: Test performed at:[facility] [address] [place] [address] ; non-emergent till apt VLDL 18 mg/dL (Normal) Range: 5-40 LDL 85 mg/dL (Normal) Range: 0-130 HDL 54 mg/dL (Normal) Comments: Reference Range HDL <40 mg/dL Low HDL Cholesterol HDL >or= 60 mg/dL High HDL Cholesterol TRIG 92 mg/dL (Normal) Comments: Serum Triglycerides Reference Interval Normal <150 mg/dL Borderline high 150 - 199 mg/dL High 200 - 499 mg/dL Very High > or = 500 mg/dL CHOL 157 mg/dL (Normal) Comments: <200 mg/dL Desirable 200-240 mg/dL Borderline >240 mg/dL High Risk :35 CBC W/Diff, Automated Comments: Test performed at:[facility] [address] [place] [address] ; non- emergent till apt Absolute Lymph 1.75 {X10_3/ul} (Normal) Range: 0.83-4.51 Absolute Neut 2.3 {X10_3/uL} (Normal) Range: 2.0-7.7 IM GRAN % 0.200 % (Normal) Range: 0.0-0.9 Comments: IG% - Immature Granulocytes (promyelocytes, myelocytes andmetamyelocytes) > 1% indicates that a LEFT SHIFT is Present. BASO% 2.0 % (Abnormal) Range: 0-1 EO% 7.5 % (Abnormal) Range: 0-5 MONO% 11.1 % (Abnormal) Range: 0-10 LY% 34.6 % (Normal) Range: 19-41 NEUT% 44.6 % (Abnormal) Range: 47-70 MPV 11.5 fL (Normal) Range: 6.2-12.0 PLT 358 K/mm3 (Normal) Range: 150-450 RDW SD 44.1 fL (Abnormal) Range: 35.1-43.9 RDW CV 13.5 % (Normal) Range: 11.6-14.6 MCHC 32.8 {g/gl} (Normal) Range: 32-36 MCH 29.9 pg (Normal) Range: 27.0-32.0 MCV 91.2 fL (Normal) Range: 81-99 HCT 37.2 % (Normal) Range: 37-47 HGB 12.2 g/dL (Normal) Range: 12.0-15.0 RBC 4.08 {M/mm3} (Abnormal) Range: 4.2-5.4 WBC 5.1 K/mm3 (Normal) Range: 4.4-11.0 :35 CRP Comments: Test performed at:[place] [address] C-REACTIVE PROT 38.60 mg/L (Abnormal) Range: 0.0-3.0 Comments: C-Reactive Protein (CRP) provides useful information for thediagnosis, therapy and monitoring of inflammatory processesand associated diseases. For the evaluation of Relative Riskfor Cardiovascular Dise ase, a High Sensitivity CRP (HSCRP)should be ordered. :35 Culture, Urine Comments: Test performed at:[facility] [address] [place] [address] CUUR See Note (Normal) Comments: Urine CultureCulture exhibits no growth. :35 Erythrocyte Sed Rate Comments: Test performed at:[facility] [address] [place] [address], [place] [address] SED RATE 24 mm/h (Normal) Range: 0-30 46-Myd-[id number]:11 URINE ALEX CULTURE-JASMINE COL Comments: PATIENT NOT FASTINGPERFORMED BY: [facility] [id number] Information: SRC:URC [id number] COUNT ([id number]) Result 1 NG36 (Normal) Comments: No growth in 36 - 48 hours. Urine Culture,Comprehensive Final report (Normal) [id number]-[id number]:11 Urinalysis, Office (99331) UA - LEUKOCYTE ESTERASE Small (Normal) UA - NITRITE Negative (Normal) URINE UROBILINGN JASMINE TIMED Normal mg/dL (Normal) UA - PROTEIN Trace mg/dL (Normal) UA - PH 6 (Abnormal) UA - BLOOD non-hemolyzed trace (Normal) UA - SPECIFIC GRAVITY 1.020 (Normal) UA - KETONES Negative mg/dL (Normal) UA - BILIRUBIN Negative (Normal) UA - GLUCOSE Negative (Normal) 35-Ney-[id number]:57 V-Zoster IgG (Immunity) Comments: Test performed at:[facility] [address] [place] [address] VZOST IgG [id number] 1894 {index} (Normal) Comments: Negative <135 Equivocal 135 - 165 Positive >165A positive result generally indicates exposure to thepathogen or adm inistration of specific immunoglobulins,but it is not indication of active infection or stageof disease.Performed at: [facility] [address] [id number] Director: Bernardino grady PhD, Phone: [phone]; ADDENDA: has been seen in office since drawn 34-Oua-13084:48 CBC W/Diff, Automated Comments: Test performed at:[facility] [address] [place] [address] Absolute Lymph 1.40 {X10_3/ul} (Normal) Range: 0.83-4.51 Absolute Neut 2.0 {X10_3/uL} (Normal) Range: 2.0-7.7 IM GRAN % 0.200 % (Normal) Range: 0.0-0.9 Comments: IG% - Immature Granulocytes (promyelocytes, myelocytes andmetamyelocytes) > 1% indicates that a LEFT SHIFT is Present. BASO% 1.9 % (Abnormal) Range: 0-1 EO% 9.8 % (Abnormal) Range: 0-5 MONO% 9.1 % (Normal) Range: 0-10 LY% 32.7 % (Normal) Range: 19-41 NEUT% 46.3 % (Abnormal) Range: 47-70 MPV 11.0 fL (Normal) Range: 6.2-12.0 PLT 306 K/mm3 (Normal) Range: 150-450 RDW SD 43.5 fL (Normal) Range: 35.1-43.9 RDW CV 13.3 % (Normal) Range: 11.6-14.6 MCHC 32.9 {g/gl} (Normal) Range: 32-36 MCH 29.7 pg (Normal) Range: 27.0-32.0 MCV 90.4 fL (Normal) Range: 81-99 HCT 39.5 % (Normal) Range: 37-47 HGB 13.0 g/dL (Normal) Range: 12.0-15.0 RBC 4.37 {M/mm3} (Normal) Range: 4.2-5.4 WBC 4.3 K/mm3 (Abnormal) Range: 4.4-11.0 57-Gyi-42364:48 Comprehensive Metabolic Profil Comments: Test performed at:[facility] [address] [place] [address] GAP 4 (Abnormal) Range: 5-15 CO2 28.0 mmol/L (Normal) Range: 21.0-32.0 CL 107 mmol/L (Normal) Range: 98-107 K 3.9 mmol/L (Normal) Range: 3.5-5.1 NA 139 mmol/L (Normal) Range: 136-145 T BILI 0.50 mg/dL (Normal) Range: 0.00-4.00 ALT 25 U/L (Normal) Range: 12-78 ALK P 87 U/L (Normal) Range: 50-136 AST 23 U/L (Normal) Range: 15-37 CA 9.0 mg/dL (Normal) Range: 8.5-10.1 A/G 1.1 {RATIO} (Normal) Range: 0.9-2.4 GLOB 3.5 g/dL (Normal) Range: 2.7-4.2 ALB 3.9 g/dL (Normal) Range: 3.4-5.0 T PROT 7.4 g/dL (Normal) Range: 6.4-8.2 BUN/CRE 24.3 {RATIO} (Abnormal) Range: 10-20 CREAT,SERUM 0.7 mg/dL (Normal) Range: 0.6-1.0 BUN 17 mg/dL (Normal) Range: 7-18 GLU 90 mg/dL (Normal) Range: 70-110 :48 Lipid Profile Comments: Test performed at:[facility] [address] [place], [place] [id number] VLDL 14 mg/dL (Normal) Range: 5-40 LDL 68 mg/dL (Normal) Range: 0-130 HDL 61 mg/dL (Normal) Comments: Reference Range HDL <40 mg/dL Low HDL Cholesterol HDL >or= 60 mg/dL High HDL Cholesterol TRIG 72 mg/dL (Normal) Range: 0-199 Comments: Serum Triglycerides Reference Interval Normal <150 mg/dL Borderline high 150 - 199 mg/dL High 200 - 499 mg/dL Very High > or = 500 mg/dL CHOL 143 mg/dL (Normal) Comments: <200 mg/dL Desirable 200-240 mg/dL Borderline >240 mg/dL High Risk :48 Thyroid Stim Hormone (TSH) Comments: Test performed at:[facility] [address] [place], [place] [id number] TSH 1.57 {uIU/mL} (Normal) Range: 0.358-3.74 09-Mar-20149:23 CBCD ALC 2.00 {X10_3/ul} (Normal) Range: 0.83-4.51 ANC 2.1 {X10_3/uL} (Normal) Range: 2.0-7.7 IG% 0.200 % (Normal) Range: 0.0-0.9 Comments: IG% - Immature Granulocytes (promyelocytes, myelocytes andmetamyelocytes) > 1% indicates that a LEFT SHIFT is Present. B% 1.7 % (Abnormal) Range: 0-1 E% 11.1 % (Abnormal) Range: 0-5 M% 8.1 % (Normal) Range: 0-10 L% 38.4 % (Normal) Range: 19-41 N% 40.5 % (Abnormal) Range: 47-70 MPV 11.1 fL (Normal) Range: 6.2-12.0 PLT 296 K/mm3 (Normal) Range: 150-450 RDWSD 43.7 fL (Normal) Range: 35.1-43.9 RDWCV 13.4 % (Normal) Range: 11.6-14.6 MCHC 33.3 {g/gl} (Normal) Range: 32-36 MCH 30.1 pg (Normal) Range: 27.0-32.0 MCV 90.2 fL (Normal) Range: 81-99 HCT 39.6 % (Normal) Range: 37-47 HGB 13.2 g/dL (Normal) Range: 12.0-15.0 RBC 4.39 {M/mm3} (Normal) Range: 4.2-5.4 WBC 5.2 K/mm3 (Normal) Range: 4.4-11.0 :23 CMP GAP 5 (Normal) Range: 5-15 CO2 30.0 mmol/L (Normal) Range: 21.0-32.0 CL 106 mmol/L (Normal) Range: 98-107 K 4.2 mmol/L (Normal) Range: 3.5-5.1 NA 141 mmol/L (Normal) Range: 136-145 BIT 0.40 mg/dL (Normal) Range: 0.00-4.00 ALT 25 U/L (Normal) Range: 12-78 ALK 70 U/L (Normal) Range: 50-136 AST 19 U/L (Normal) Range: 15-37 CA 9.2 mg/dL (Normal) Range: 8.5-10.1 AG 1.2 {RATIO} (Normal) Range: 0.9-2.4 GLOB 3.4 g/dL (Normal) Range: 2.7-4.2 ALB 4.1 g/dL (Normal) Range: 3.4-5.0 TPROT 7.5 g/dL (Normal) Range: 6.4-8.2 BC 21.3 {RATIO} (Abnormal) Range: 10-20 ECRCL 48.67 ml/min (Normal) CREAT 0.8 mg/dL (Normal) Range: 0.6-1.0 BUN 17 mg/dL (Normal) Range: 7-18 GLU 87 mg/dL (Normal) Range: 70-110 :23 LIPID Comments: non-emergent till apt VLDL 18 mg/dL (Normal) Range: 5-40 LDL 76 mg/dL (Normal) Range: 0-130 HDL 57 mg/dL (Normal) Comments: Reference RangeHDL <40 mg/dL Low HDL CholesterolHDL >or= 60 mg/dL High HDL Cholesterol TRIG 88 mg/dL (Normal) Range: 0-199 Comments: Serum Triglycerides Reference IntervalNormal <150 mg/dLBorderline high 150 - 199 mg/dLHigh 200 - 499 mg/ dLVery High > or = 500 mg/dL CHOL 151 mg/dL (Normal) Comments: <200 mg/dL Myhfwrnsv852-040 mg/dL Borderline>240 mg/dL High Risk :23 VZG 2963 {index} (Normal) Comments: Negative <135Equivocal 135 - 165Positive >165A positive result generally indicates exposure to thepathogen or administration of specific immunoglobulins,but it is not indicati on of active infection or stageof disease.Performed at: [address] [id number] Director: Bernardino Camargo PhD, Phone: [phone]; ADDENDA: normal and pt has apt tomorrow :17 CMP GAP 7 (Normal) Range: 5-15 CO2 28.0 mmol/L (Normal) Range: 21.0-32.0 CL 104 mmol/L (Normal) Range: 98-107 K 3.8 mmol/L (Normal) Range: 3.5-5.1 NA 139 mmol/L (Normal) Range: 136-145 BIT 0.50 mg/dL (Normal) Range: 0.00-1.00 ALT 27 U/L (Normal) Range: 12-78 ALK 78 U/L (Normal) Range: 50-136 AST 22 U/L (Normal) Range: 15-37 CA 9.4 mg/dL (Normal) Range: 8.5-10.1 AG 1.3 {RATIO} (Normal) Range: 0.9-2.4 GLOB 3.3 g/dL (Normal) Range: 2.7-4.2 ALB 4.2 g/dL (Normal) Range: 3.4-5.0 TPROT 7.5 g/dL (Normal) Range: 6.4-8.2 BC 31.4 {RATIO} (Abnormal) Range: 10-20 GFRAA 107 mL/min (Normal) GFR 88 mL/min (Normal) CREAT 0.7 mg/dL (Normal) Range: 0.6-1.0 BUN 22 mg/dL (Abnormal) Range: 7-18 GLU 77 mg/dL (Normal) Range: 70-110 :17 LIPID VLDL 19 mg/dL (Normal) Range: 5-40 LDL 83 mg/dL (Normal) Range: 0-130 HDL 49 mg/dL (Normal) Comments: Reference RangeHDL <40 mg/dL Low HDL CholesterolHDL >or= 60 mg/dL High HDL Cholesterol TRIG 96 mg/dL (Normal) Range: 0-199 Comments: Serum Triglycerides Reference IntervalNormal <150 mg/dLBorderline high 150 - 199 mg/dLHigh 200 - 499 mg/ dLVery High > or = 500 mg/dL CHOL 151 mg/dL (Normal) Comments: <200 mg/dL Kdeaxvwjz501-531 mg/dL Borderline>240 mg/dL High Risk :17 VITD 25.5 mg/mL (Normal) Comments: Vitamin D 25(OH) Status RangeDeficiency <20 ng/mL (50nmol/L)Insuffciency 20 - 30 ng/mL (50 - 75 nmol/L)Sufficiency 30 - 100 ng/mL (75 - 250 nmol/L)Toxicity >100 ng/mL (>250 nmol/L) :16 CMP GAP 8 (Normal) Range: 5-15 CO2 27.0 mmol/L (Normal) Range: 21.0-32.0 CL 106 mmol/L (Normal) Range: 98-107 K 4.0 mmol/L (Normal) Range: 3.5-5.1 NA 141 mmol/L (Normal) Range: 136-145 BIT 0.50 mg/dL (Normal) Range: 0.00-1.00 ALT 26 U/L (Normal) Range: 12-78 ALK 71 U/L (Normal) Range: 50-136 AST 23 U/L (Normal) Range: 15-37 CA 9.6 mg/dL (Normal) Range: 8.5-10.1 AG 1.3 {RATIO} (Normal) Range: 0.9-2.4 ALB 4.2 g/dL (Normal) Range: 3.4-5.0 GLOB 3.2 g/dL (Normal) Range: 2.7-4.2 TPROT 7.4 g/dL (Normal) Range: 6.4-8.2 BC 26.7 {RATIO} (Abnormal) Range: 10-20 GFRAA 80 mL/min (Normal) GFR 66 mL/min (Normal) BUN 24 mg/dL (Abnormal) Range: 7-18 CREAT 0.9 mg/dL (Normal) Range: 0.6-1.0 GLU 87 mg/dL (Normal) Range: 70-110 :16 LIPID LDL 63 mg/dL (Normal) Range: 0-130 VLDL 17 mg/dL (Normal) Range: 5-40 HDL 47 mg/dL (Normal) Comments: Reference RangeHDL <40 mg/dL Low HDL CholesterolHDL >or= 60 mg/dL High HDL Cholesterol TRIG 83 mg/dL (Normal) Comments: Serum Triglycerides Reference IntervalNormal <150 mg/dLBorderline high 150 - 199 mg/dLHigh 200 - 499 mg/ dLVery High > or = 500 mg/dL CHOL 127 mg/dL (Normal) Comments: <200 mg/dL Cmpywfziy330-583 mg/dL Borderline>240 mg/dL High Risk :49 CBCMD ANC 2.1 3/uL (Normal) Range: 2.0-7.7 IG% 0.00 % (Normal) Range: 0.0-0.0 B% 1.8 % (Abnormal) Range: 0-1 E% 6.3 % (Abnormal) Range: 0-5 M% 8.7 % (Normal) Range: 0-10 L% 40.2 % (Normal) Range: 19-41 MPV 11.2 fL (Normal) Range: 6.2-12.0 N% 43.0 % (Abnormal) Range: 47-70 PLT 274 K/mm3 (Normal) Range: 150-450 RDWSD 44.3 fL (Abnormal) Range: 35.1-43.9 RDWCV 14.1 % (Normal) Range: 11.6-14.6 MCH 28.4 pg (Normal) Range: 27.0-32.0 MCHC 32.8 g/dL (Normal) Range: 32-36 HCT 38.4 % (Normal) Range: 37-47 MCV 86.7 fL (Normal) Range: 81-99 HGB 12.6 g/dL (Normal) Range: 12.0-15.0 RBC 4.43 {M/mm3} (Normal) Range: 4.2-5.4 WBC 4.9 {k/mm3} (Normal) Range: 4.4-11.0 :49 CMP GAP 5 (Normal) Range: 5-15 CO2 29.0 mmol/L (Normal) Range: 21.0-32.0 CL 107 mmol/L (Normal) Range: 98-107 K 3.8 mmol/L (Normal) Range: 3.5-5.1 NA 141 mmol/L (Normal) Range: 136-145 BIT 0.30 mg/dL (Normal) Range: 0.00-1.00 ALT 24 U/L (Normal) Range: 12-78 ALK 65 U/L (Normal) Range: 50-136 AST 17 U/L (Normal) Range: 15-37 CA 9.3 mg/dL (Normal) Range: 8.5-10.1 AG 1.1 {RATIO} (Normal) Range: 0.9-2.4 GLOB 3.5 g/dL (Normal) Range: 2.7-4.2 ALB 4.0 g/dL (Normal) Range: 3.4-5.0 TPROT 7.5 g/dL (Normal) Range: 6.4-8.2 BC 22.5 {RATIO} (Abnormal) Range: 10-20 GFRAA 92 mL/min (Normal) GFR 76 mL/min (Normal) CREAT 0.8 mg/dL (Normal) Range: 0.6-1.0 BUN 18 mg/dL (Normal) Range: 7-18 GLU 86 mg/dL (Normal) Range: 70-110 :49 LIPID LDL 66 mg/dL (Normal) Range: 0-130 VLDL 15 mg/dL (Normal) Range: 5-40 CHOL 129 mg/dL (Normal) Comments: <200 mg/dL Jruoidmog780-963 mg/dL Borderline>240 mg/dL High Risk HDL 48 mg/dL (Normal) Comments: Reference RangeHDL <40 mg/dL Low HDL CholesterolHDL >or= 60 mg/dL High HDL Cholesterol TRIG 74 mg/dL (Normal) Comments: Serum Triglycerides Reference IntervalNormal <150 mg/dLBorderline high 150 - 199 mg/dLHigh 200 - 499 mg/ dLVery High > or = 500 mg/dL :49 TSH 1.68 {uIU/mL} (Normal) Range: 0.358-3.74 :49 VITD 43.8 ng/mL (Normal) Comments: Vitamin D 25(OH) Status RangeDeficiency <20 ng/mL (50nmol/L)Insufficiency 20 - 30 ng/mL (50 - 75 nmol/L)Sufficiency 30 - 100 ng/mL (75 - 250 nm ol/L)Toxicity >100 ng/mL (250 nmol/L)Effective 201225-Jun-201208-Clk-[id number]:32 URINE ALEX CULTURE (JASMINE Comments: PATIENT NOT FASTINGPERFORMED BY: [facility]amoxa3673 [facility] [id number] Information: SRC:UR [id number] COL COUNT) ([id number]) Result 1 CNSNSS (Normal) Comments: Coagulase negative Staphylococcus species, not Staphylococcussaprophyticus.100 Colonies/mL .Based on resistance to penicillin and susceptibility to o xacillinthis isolate would be susceptible to:* Penicillinase-stable penicillins; such as: Cloxacillin Dicloxacillin Nafcillin* Beta-lactam/beta-lactamase inhibitor combinations; such as: Walter xicillin-clavulanic acid Ampicillin-sulbactam* Antistaphylococcal cephems; such as: Cefaclor Cefuroxime* Antistaphylococcal carbapenems; such as: Imipenem Meropenem S = Susceptibl e; I = Intermediate; R = Resistant P = Positive; N = Negative MICS are expressed in micrograms per mL Antibiotic RSLT#1 RSLT#2 RSLT#3 RSLT#4 Ciprofloxacin SGentamicin SLevofloxacin SNitrofurantoin SOxacillin SPenicillin RRifampin STetracycline STrimethoprim/Sulfa SVancomycin S Urine Final report Culture,Comprehensi (Normal) ve [id number] Urinalysis, Office (96230) UA - BILIRUBIN Negative (Normal) UA - BLOOD Hemolyzed Large (Normal) UA - GLUCOSE Negative (Normal) UA - KETONES Small mg/dL (Normal) UA - LEUKOCYTE ESTERASE Large (Normal) UA - NITRITE Negative (Normal) UA - PH 7.0 (Normal) UA - PROTEIN 100 mg/dL (Normal) UA - SPECIFIC GRAVITY 1.020 (Normal) URINE UROBILINGN JASMINE TIMED Normal mg/dL (Normal) 4-Ias-[id number]:19 Urinalysis, Office (11708) UA - BILIRUBIN Negative (Normal) UA - BLOOD Hemolyzed Trace (Normal) UA - GLUCOSE Negative (Normal) UA - KETONES Negative mg/dL (Normal) UA - LEUKOCYTE ESTERASE Negative (Normal) UA - NITRITE Negative (Normal) UA - PH 7.5 (Normal) UA - PROTEIN Negative mg/dL (Normal) UA - SPECIFIC GRAVITY 1.015 (Normal) URINE UROBILINGN JASMINE TIMED Normal mg/dL (Normal) 6-Hdt-430775:11 URINE ALEX CULTURE-IDENTIFICATN Comments: PATIENT NOT FASTINGPERFORMED BY: [facility] [id number] [facility] [id number] Information: [id number] ([id number]) Result 1 NG36 (Normal) Comments: No growth in 36 - 48 hours. Urine Culture,Comprehensive Final report (Normal) 20-Xul-67638:33 CBCMD RBCM NORM C+C {NORMAL} (Normal) PE ADEQUATE (Normal) EOS 3 % (Normal) Range: 0-5 MON 5 % (Normal) Range: 0-10 LYMPH 24 % (Normal) Range: 19-41 BAND 1 % (Normal) Range: 0-5 PMN 67 % (Normal) Range: 47-70 JOLIE 100 (Normal) ANC 6.1 3/uL (Normal) Range: 2.0-7.7 PLT 275 K/mm3 (Normal) Range: 150-450 RDW 13.1 % (Normal) Range: 11.6-14.6 MCHC 34.1 g/dL (Normal) Range: 32-36 MCH 30.2 pg (Normal) Range: 27.0-32.0 MCV 88.5 fL (Normal) Range: 81-99 HCT 36.6 % (Abnormal) Range: 37-47 HGB 12.5 g.dL (Normal) Range: 12.0-15.0 RBC 4.13 {M/mm3} (Abnormal) Range: 4.2-5.4 WBC 8.6 K/mm3 (Normal) Range: 4.4-11.0 :33 CMP GAP 8 (Normal) Range: 5-15 CO2 29.0 mmol/L (Normal) Range: 21.0-32.0 CL 103 mmol/L (Normal) Range: 98-107 K 3.9 mmol/L (Normal) Range: 3.5-5.1 NA 140 mmol/L (Normal) Range: 136-145 BIT 0.50 mg/dL (Normal) Range: 0.00-1.00 ALT 29 U/L (Normal) Range: 12-78 ALK 86 U/L (Normal) Range: 50-136 AST 26 U/L (Normal) Range: 15-37 CA 9.0 mg/dL (Normal) Range: 8.5-10.1 AG 1.0 {RATIO} (Normal) Range: 0.9-2.4 GLOB 3.8 g/dL (Normal) Range: 2.7-4.2 ALB 3.7 g/dL (Normal) Range: 3.4-5.0 TPROT 7.5 g/dL (Normal) Range: 6.4-8.2 BC 20.0 {RATIO} (Normal) Range: 10-20 GFRAA 92 mL/min (Normal) GFR 76 mL/min (Normal) CREAT 0.8 mg/dL (Normal) Range: 0.6-1.0 BUN 16 mg/dL (Normal) Range: 7-18 GLU 93 mg/dL (Normal) Range: 70-110 :33 LIPID VLDL 14 mg/dL (Normal) Range: 5-40 LDL 81 mg/dL (Normal) Range: 0-130 HDL 57 mg/dL (Normal) Comments: Reference Range HDL <40 mg/dL Low HDL Cholesterol HDL >or= 60 mg/dL High HDL Cholesterol TRIG 68 mg/dL (Normal) Comments: Serum Triglycerides Reference Interval Normal <150 mg/dL Borderline high 150 - 199 mg/dL High 200 - 499 mg/dL Very High > or = 500 mg/dL CHOL 152 mg/dL (Normal) Comments: <200 mg/dL Desirable 200-240 mg/dL Borderline >240 mg/dL High Risk 02-Yxb-[id number]:33 [facility] 0 SEEN {/hpf} (Normal) UBAC 0 SEEN {/hpf} (Normal) UEPIS 0 SEEN {/hpf} (Normal) Range: 5-10 URBC 0 SEEN {/hpf} (Normal) Range: 0-5 UWBC 0-5 SEEN {/hpf} (Normal) Range: 0-5 NEGRA 25 /ul (Abnormal) UOB 150 /ul (Abnormal) RICKY Negative (Normal) UROBU Normal mg/dL (Normal) uPROTU Negative mg/dL (Normal) RUBÉN 6.0 (Normal) Range: 5.0 - 8.0 SGU 1.025 (Normal) Range: 1.002-1.030 KETU Negative mg/dL (Normal) BILIU Negative mg/dL (Normal) GLUR NEGATIVE mg/dL (Normal) UCLAR Clear (Normal) UCOL Yellow (Normal) 7-Kry-[id number]:50 RIBS UNIL 2V NO CXR Radiology Report See Note (Normal) Comments: PROCEDURE: X-RAY - UNILATERAL RIBS ( RIGHT ) REASON FOR EXAM: Female, 71 years old. Rib contusion. TECHNIQUE: Two views of the ribs. COMPARISON: None. FINDINGS:Normal visualized ribs. There is no demonstrated rib fracture. There is linear atelectasis/scarring at the right base. There is nodemonstrated pneumothorax. Normal visualized thoracic spine. IMPRESSION:No acute abnormality identified . Signed:Mikhail Palencia MDNovember 2011 at 5:31:33 PM [id number] Signed TP/TP If you are the referring physician and would like to consult with theradiologist who provided this inter pretation, please contact Mikhail Palencia MD at [phone]. If this radiologist is unavailable, you will bedirected to another radiologist to assist. If you are a patient with a question regarding this re port, pleasecontactyour referring physician directly. Professional Interpretation Provided By: [employer], Phone , These documents contain legally protected and confidenti al healthinformation intended only for the use of the individual or entity namedabove. If you are not the intended recipient, you are hereby notifiedthatany disclosure, copying, distribution, or other u se of these documents isstrictly prohibited. If you have received this information in error,pleasenotify the sender immediately and arrange for the return or destructionofthese documents. Dictated on 04/08/12 1319 by Mikhail Palecnia MDTranscribed on 04/08/12 1737 by ITS IMPORTSign by Mikhail Palencia MD on 04/08/12 1738 Sign by: Mikhail Palencia MD [id number] BILAT SCRN DIGITAL & CAD Radiology Report See Note (Normal) Comments: MAMMOGRAPHY - BILATERAL SCREENING REASON FOR EXAM: Female, 71 years old. Routine annual screeningexamination. PERTINENT HISTORY: Non-contributory. TECHNIQUE: Digital examination. Med iolateral ob lique (MLO) andcraniocaudad (CC) views of both breasts were obtained. CAD: CAD wasperformed on this study. COMPARISON: Comparison is made with prior studies dated February 10nd January 27, 2010. FINDINGS:The breast composition is heterogeneously dense. There are no dominant masses or suspicious calcifications. The patientisstatus post left stereotactic biopsy. No other significant abnormalitie s are identified. There has been nosignificant change since the prior study. IMPRESSION:Stable bilateral screening mammogram. Yearly follow-up recommended. (A) ASSESSMENT CATEGORY:BIRADS Category 2: Benign finding(s). A letter regarding these resultswill be sent to the patient by the facility within 30 days. Approximately 10% of breast cancers are not detected by mammography. Anormal mammogram should not delay biopsy of a clinically suspiciousabnormality. Signed:Michael Alonso M.D.March 05, 2012 at 2:05:30 PM [id number] Signed GP/GP If you are the referring physician and would like to consult with theradiologist who provided this interpretation, please contact Yair Wills. at [phone]. If this radiologist is unavailable, youwill be directed to another radiologist to assist. If you are a patient with a question regarding this report, pleasecontactyour referring physician directly. Professional Interpretation Provided By: [employer], Phone , These documents contain legally protected and confidential healthinformation intended only for the use of the individual or entity namedabove. If you are not the intended recipient , you are hereby notifiedthatany disclosure, copying, distribution, or other use of these documents isstrictly prohibited. If you have received this information in error,pleasenotify the sender immediat dede and arrange for the return or destructionofthese documents. Dictated on 03/05/12 1301 by Olga PLASCENCIA,Chrisranscribed on 03/05/12 1411 by ITS IMPORTSign by Michael Alonso MD on 03/05/12 141 Sign by: Michael Alonso MD [id number]:00 DEXA BONE DENSITY STUDY (HP) Radiology Report See Note (Normal) Comments: PROCEDURE: DUAL ENERGY X-RAY ABSORPTIOMETRY / DXA REASON FOR EXAM: Female, 71 years old. Osteopenia. TECHNIQUE: Bone Mineral Density (BMD) measurements of lumbar spine andbilateral hips were obtai sravan. COMPARISON: Comparison is made with prior study dated January 27, 2010. FINDINGS: Lumbar Spine (L1-L4): g/cm2 (0.940) / T-score (-2.0) / Z-score (-0.4) Left Femur Total: g/cm2 (0.785) / T- score (-1.8) / Z-score (-0.4)Left Femoral Neck: g/cm2 (0.749) / T-score (-2.1) / Z-score (-0.4)Right Femur Total: g/cm2 (0.770) / T-score (-1.9) / Z-score (-0.5)Right Femoral Neck: g/cm2 (0 .741) / T-score (-2.1) / Z-score (-0.5) The T-Scores on the most recent prior examination were: Lumbar Spine (L1-L4): which represents a worsening of 3.9%.Left Femur Total: which represent s a worsening of 4.1%.Right Femur Total: which represents an improvement of 0.5%. IMPRESSION:The patient is considered osteopenic, as outlined above, according toWorldHealth Organization (WHO) crilenin gonzalez. Fracture risk is moderate. Reference Information:The T-score is the number of standard deviations above or below thestandard which is normal for young adults at their peak bone mineraldensity. Th e World Health Organization (WHO) interprets the T-scores asfollows: Above -1 Normal bone densityBetween -1 and -2.5 OsteopeniaEqual to / or below -2.5 Osteoporosis As a practical clinical guideline, osteopenia may be graded as follows:Mild -1 through -1.5Moderate -1.6 through -2.0Severe -2.1 through -2.4 The Z-score is the number of standard deviations above or below age-matchedcontr ols. A Z-score of less than -1.5 would be considered abnormal. References:1. NIH Osteoporosis and Related Bone Diseases http://www.osteo.org2. International Society for Clinical Densitometry http://ww w.iscd.org3. National Osteoporosis Foundation http://www.nof.org Signed:Michael Alonso M.D.March 05, 2012 at 2:52:24 PM [id number] Signed GP/GP If you are the referring physici an and would like to consult with theradiologist who provided this interpretation, please contact Stuart Wills at [phone]. If this radiologist is unavailable, youwill be directed to anot her radiologist to assist. If you are a patient with a question regarding this report, pleasecontactyour referring physician directly. Professional Interpretation Provided By: [employer], Phone , These documents contain legally protected and confidential healthinformation intended only for the use of the individual or entity namedabove. If you are not the intended recipi ent, you are hereby notifiedthatany disclosure, copying, distribution, or other use of these documents isstrictly prohibited. If you have received this information in error,pleasenotify the sender immed iately and arrange for the return or destructionofthese documents. Dictated on 03/05/12 1322 by Chris Alonso MDranscribed on 03/05/12 1458 by ITS IMPORTSign by Michael Alonso MD on 1457 Sign by: Michael Alonso MD :26 CBCEM Comments: This patient requested that [facility] [employer] send to you acopy of their Yearly Employee Health Risk Assessment.A copy of this report is also given to the patient so theycan follow up with your office if they choose. MPV 9.4 fL (Normal) Range: 6.5-12.0 PLT 266 K/mm3 (Normal) Range: 150-450 RDW 14.3 % (Normal) Range: 11.6-14.6 MCH 30.1 pg (Normal) Range: 27.0-32.0 MCHC 33.7 g/dL (Normal) Range: 32-36 MCV 89.5 fL (Normal) Range: 81-99 HCT 38.3 % (Normal) Range: 37-47 HGB 12.9 g/dL (Normal) Range: 12.0-16.0 RBC 4.28 {M/mm3} (Normal) Range: 4.2-5.4 WBC 4.6 K/mm3 (Normal) Range: 4.4-11.0 :26 CMP Comments: VITD WAS DRAWN YESTERDAY ON 09-25-11 CO2 29.0 mmol/L (Normal) Range: 21.0-32.0 GAP 6 (Normal) Range: 5-15 CL 106 mmol/L (Normal) Range: 98-107 K 4.0 mmol/L (Normal) Range: 3.5-5.1 NA 141 mmol/L (Normal) Range: 136-145 BIT 0.40 mg/dL (Normal) Range: 0.00-1.00 ALT 26 U/L (Normal) Range: 12-78 ALK 58 U/L (Normal) Range: 50-136 AST 21 U/L (Normal) Range: 15-37 CA 8.9 mg/dL (Normal) Range: 8.5-10.1 AG 1.4 {RATIO} (Normal) Range: 0.9-2.4 GLOB 3.1 g/dL (Normal) Range: 2.7-4.2 ALB 4.4 g/dL (Normal) Range: 3.4-5.0 BC 20.0 {RATIO} (Normal) Range: 10-20 TPROT 7.5 g/dL (Normal) Range: 6.4-8.2 GFRAA 92 mL/min (Normal) GFR 76 mL/min (Normal) CREAT 0.8 mg/dL (Normal) Range: 0.6-1.0 BUN 16 mg/dL (Normal) Range: 7-18 GLU 80 mg/dL (Normal) Range: 70-110 85-Igh-22790:26 DC GIANT PLATELETS (Normal) Comments: This patient requested that [facility] [employer] send to you acopy of their Yearly Employee Health Risk Assessment.A copy of this report is also given to the patient so theycan follow up with your office if they choose. :26 EMP Comments: This patient requested that [facility] [employer] send to you acopy of their Yearly Employee Health Risk Assessment.A copy of this report is also given to the patient so theycan follow up with your office if they choose. LDH 209 U/L (Normal) Range: 87-241 VLDL 15 mg/dL (Normal) Range: 5-40 LDL 75 mg/dL (Normal) Range: 0-130 HDL 59 mg/dL (Normal) Comments: Reference Range HDL <40 mg/dL Low HDL Cholesterol HDL >or= 60 mg/dL High HDL Cholesterol GAP 7 (Normal) Range: 5-15 CO2 28.0 mmol/L (Normal) Range: 21.0-32.0 CL 106 mmol/L (Normal) Range: 98-107 K 4.0 mmol/L (Normal) Range: 3.5-5.1 NA 141 mmol/L (Normal) Range: 136-145 TRIG 75 mg/dL (Normal) Comments: Serum Triglycerides Reference Interval Normal <150 mg/dL Borderline high 150 - 199 mg/dL High 200 - 499 mg/dL Very High > or = 500 mg/dL CHOL 149 mg/dL (Normal) Comments: <200 mg/dL Desirable 200-240 mg/dL Borderline >240 mg/dL High Risk BID 0.09 mg/dL (Normal) Range: 0.00-0.30 BIT 0.40 mg/dL (Normal) Range: 0.00-1.00 ALT 26 U/L (Normal) Range: 12-78 ALK 63 U/L (Normal) Range: 50-136 AST 20 U/L (Normal) Range: 15-37 PHOS 3.7 mg/dL (Normal) Range: 2.5-4.9 CA 8.8 mg/dL (Normal) Range: 8.5-10.1 AG 1.3 {RATIO} (Normal) Range: 0.9-2.4 GLOB 3.2 g/dL (Normal) Range: 2.7-4.2 ALB 4.3 g/dL (Normal) Range: 3.4-5.0 TPROT 7.5 g/dL (Normal) Range: 6.4-8.2 URIC 4.6 mg/dL (Normal) Range: 2.6-6.0 BC 17.8 {RATIO} (Normal) Range: 10-20 GFRAA 80 mL/min (Normal) GFR 66 mL/min (Normal) CREAT 0.9 mg/dL (Normal) Range: 0.6-1.0 BUN 16 mg/dL (Normal) Range: 7-18 GLU 81 mg/dL (Normal) Range: 70-110 52-Ndc-19753:26 LIPID Comments: VITD WAS DRAWN YESTERDAY ON 09-25-11 LDL 82 mg/dL (Normal) Range: 0-130 VLDL 15 mg/dL (Normal) Range: 5-40 CHOL 153 mg/dL (Normal) Comments: <200 mg/dL Desirable 200-240 mg/dL Borderline >240 mg/dL High Risk HDL 56 mg/dL (Normal) Comments: Reference Range HDL <40 mg/dL Low HDL Cholesterol HDL >or= 60 mg/dL High HDL Cholesterol TRIG 75 mg/dL (Normal) Comments: Serum Triglycerides Reference Interval Normal <150 mg/dL Borderline high 150 - 199 mg/dL High 200 - 499 mg/dL Very High > or = 500 mg/dL 47-Yub-19898:26 UAEM Comments: This patient requested that [facility] [employer] send to you acopy of their Yearly Employee Health Risk Assessment.A copy of this report is also given to the patient so theycan follow up with your office if they choose. NEGRA NEGATIVE (Normal) UOB NEGATIVE (Normal) RICKY NEGATIVE (Normal) UROBU 0.2 EU/dl (Normal) Range: 0.2 - 1.0 uPROTU NEGATIVE (Normal) RUBÉN 6.0 (Normal) Range: 5.0-8.0 SGU 1.010 (Normal) Range: 1.002-1.030 KETU NEGATIVE mg/dL (Normal) BILIU NEGATIVE (Normal) GLUR NEGATIVE (Normal) UCLAR CLEAR (Normal) UCOL YELLOW (Normal) 64-Oee-572436:01 VITD 45.5 ng/mL (Normal) Range: 30.0-100.0 Comments: Vitamin D deficiency has been defined by the [place] ofMedicine and an Endocrine Society practice guideline as alevel of serum 25-OH vitamin D less than 20 ng/mL (1,2).The Endocrine Society went on to further define vitamin Dinsufficiency as a level between 21 and 29 ng/mL (2).1. IOM ([place] of Medicine). 2010. Dietary reference intakes for calcium and D. [place]: The National Academies Press.2. Paxton MF, Rojelio NC, Cortney GARIBAY, et al. Evaluation, treatment, and prevention of vitamin D deficiency: an Endocrine Society clinical practice guideline. JCEM. 2010; 96(7): 1911-30.Performed at: [address] [id number] Director: Korin Harris MD, Phone: [phone] [id number] HEPATOBILIARY IMAGING Radiology Report See Note (Normal) Comments: CLINICAL:70-year-old female with history of abdominal pain and nausea. RADIONUCLIDE HEPATOBILIARY SCINTIGRAPHY COMPARISON:Gallbladder ultrasound report 05/02/11 FINDINGS:Following the intrav enous admini stration of 5.0 mCi of Tc Mebrofenin,hepatobiliary images reveal: 1. Relatively prompt and homogeneous radiopharmaceutical concentrationisnoted by a normal sized liver. No parenchymal defects are iden tified.2. Gallbladder activity is identified at 30 minutes postradiopharmaceutical administration.3. Small intestinal tract is not visualized during 60 minutes of pre-CCKsequential imaging. Small leonel l activity is identified following theadministration of cholecystokinin.4. Washout of the radiopharmaceutical by the hepatic parenchyma occursina normal fashion on qualitative inspection. Cholecystokin in (0.02 ug/kg) was administered intravenously over a 30-minute period. The post CCK gallbladder ejection fraction calculated at20 minutes following Cholecystokinin administration was noted to be 68.6% (normal greater than 35%). During 30 minutes of post CCK imaging, thereisno scintigraphic evidence of reflux of the radiotracer into the commonhepatic duct or refilling of the gallbladder. IMPRESSION:1. NORMAL 99m Tc Mebrofenin hepatobiliary imaging survey withCholecystokinin. A. A gallbladder ejection fraction calculated to be greater than 35%following the administration of Cholecystokinin makes th e probability offunctional hepatobiliary disease (gallbladder and/or sphincter of Oddidyskinesia) and/or organic hepatobiliary disease (chronic acalculouscholecystitis and/or cystic duct syndrome) to be low. (Genny Peterson et al,Journal of Nuclear Medicine 32:1695, 1990). To consult with a radiologist regarding this report, please call our [id number] line @ Dictated on 05/31/11817 by Ehsan Vázquez DOTranscribed on 05/31/112030 by ITS IMPORTSign by Ehsan Vázquez DO on 05/31/112031 Sign by: Ehsan Vázquez DO [id number]:54 TOE(S),MIN 2 VIEWS Radiology Report See Note (Normal) Comments: PROCEDURE: X-RAY LEFT FOOT, TOE REASON FOR EXAM: Female, 70 years old. Pain and swelling of the fifthtoe. TECHNIQUE: Three views of the toe was obtained. COMPARISON: Left toes, 3 views, May. FINDINGS:Normal visualized metatarsus. A recent fracture of the proximal fifthphalanx is now comminuted and extends into the interphalangeal joint. Normal visualized metatarsophalangeal (M.T.P) joint. IMPRESSION:Interval comminution of the previously described acute fracture of theproximal fifth phalanx with extension into the IP joint. To consult with a radiologist regarding this rep ort, please call our [id number] line @ Dictated on 05/30/11 1150 by ARNEL TORRESTranscribed on 05/30/112228 by ITS IMPORTSign by ARNEL TORRES on 05/30/112229 Sign by: ARNEL TORRES 44-Gkh-19617:21 GALLBLADDER Radiology Report See Note (Normal) Comments: PROCEDURE: ABDOMINAL ULTRASOUND - RIGHT UPPER QUADRANT REASON FOR VISIT: Female, 70 years old. Pain TECHNIQUE: Ultrasound evaluation of the right upper quadrant wasperformed with real-time ultras onography and static grayscale imaging. TECHNICAL QUALITY: Adequate. COMPARISON: None. FINDINGS: Liver: Normal size of the liver. The liver measures 14 cm. There isnormal echogenicity of the vitaly er. There is no demonstrated mass lesion.There is no intrahepatic biliary ductal dilatation. Gallbladder: Normal distended gallbladder. The gallbladder wallmeasures1.3 mm. There are no demonstrated gallstones. There is a negativesonographic Benitez's sign. There is no pericholecystic fluid. Common Bile Duct (C.B.D.): Normal size C.B.D. The common bile ductmeasures 5 mm. Pancreas: Normal size of the head, body and tail of the pancreas.Thereis normal echogenicity of the pancreas. There is no demonstratedpancreatic mass or cyst. Right Kidney: Normal size of the right kidney. The right kidn gqlnoefdgb39.6 x 4.7 x 4.0 cm. Normal renal cortex. There is a simple cyst of theright kidney measuring 1.6 cm. There are no demonstrated renal calculi.There is no hydronephrosis. There is no ascites . IMPRESSION:1. No gallstones or gallbladder wall thickening. 2. Simple right renal cyst. Dictated on 05/02/11 0830 by MAIA SHELTON MD BTranscribed on 05/02/11 1223 by ITS IMPORTSign by MAIA SHELTON MD on 05/02/11 1224 Sign by: CAT PLASCENCIA,MAIA Alfa :02 CBCD,SMEAR DIFF Comments: appt 05/17/11 RED CELL MORPH SeeNote {NORMAL} (Normal) Comments: Result: NORM C+C PLT EST SeeNote (Normal) Comments: Result: ADEQUATE EOS 1 % (Normal) Range: 0-5 MONOCYTE 4 % (Normal) Range: 0-10 LYMPH 43 % (Abnormal) Range: 19-41 SEGS 52 % (Normal) Range: 47-70 CELLS COUNTED 100 (Normal) ABSOLUTE NEUT 4.5 3/uL (Normal) Range: 2.0-7.7 PLT 226 K/mm3 (Normal) Range: 150-450 RDW 12.8 % (Normal) Range: 11.6-14.6 MCHC 34.3 g/dL (Normal) Range: 32-36 MCH 30.2 pg (Normal) Range: 27.0-32.0 MCV 88.0 fL (Normal) Range: 81-99 HCT 36.6 % (Abnormal) Range: 37-47 HGB 12.6 g/dL (Normal) Range: 12.0-16.0 RBC 4.16 {M/mm3} (Abnormal) Range: 4.2-5.4 WBC 7.9 K/mm3 (Normal) Range: 4.4-11.0 :02 COMP METABOLIC GAP 8 (Normal) Range: 5-15 CO2 28.0 mmol/L (Normal) Range: 21.0-32.0 CL 104 mmol/L (Normal) Range: 98-107 K 3.9 mmol/L (Normal) Range: 3.5-5.1 NA 140 mmol/L (Normal) Range: 136-145 T BILI 0.30 mg/dL (Normal) Range: 0.00-1.00 ALT 25 U/L (Normal) Range: 12-78 ALK P 58 U/L (Normal) Range: 50-136 AST 18 U/L (Normal) Range: 15-37 CA 9.0 mg/dL (Normal) Range: 8.5-10.1 A/G 1.4 {RATIO} (Normal) Range: 0.9-2.4 GLOB 3.2 g/dL (Normal) Range: 2.7-4.2 ALB 4.4 g/dL (Normal) Range: 3.4-5.0 T PROT 7.6 g/dL (Normal) Range: 6.4-8.2 BUN/CRE 20.0 {RATIO} (Normal) Range: 10-20 EST GFR - AA 92 mL/min (Normal) EST GFR 76 mL/min (Normal) CREAT,SERUM 0.8 mg/dL (Normal) Range: 0.6-1.0 BUN 16 mg/dL (Normal) Range: 7-18 GLU 76 mg/dL (Normal) Range: 70-110 17-Yhq-626506:02 TROPONIN-I < 0.02 ng/mL (Normal) Comments: TROPONIN-I EXPECTED VALUES <0.05 NEGATIVE 0.06 - 0.59 AT RISK OF MD > OR = 0.60 SUGGEST MD 02-Bke-10345:11 ANKLE,MIN 3 VIEWS Radiology Report See Note (Normal) Comments: PROCEDURE: X-RAY - LEFT ANKLE REASON FOR EXAM: Female, 69 years old. Left ankle pain and swellinglaterally. TECHNIQUE: 3 views of the ankle. COMPARISON: None. FINDINGS:There are small areas of increased bone density in the distal tibia andthetalus. These are compatible with benign bone islands. The distal tibia and medial malleolus are otherwise normal. Normalvisualized distal fibula and l ateral malleolus. Normal tibiotalar articulation and ankle mortise. Normal visualized talus. There is a calcaneal spur. The visualized subtalar, talonavicular, calcaneocuboid and tarsalarticulations ar e normal. There is soft tissue swelling laterally. IMPRESSION:No acute bony abnormalities identified. Dictated on 12/14/10 0919 by GISSELLE GONZALES MDTranscribed on 12/14/10 1004 by ITS IMPORTSign by GISSELLE KERN MD on 12/14/10 1005 Sign by: GISSELLE GONZALES MD :52 URINE ALEX CULTURE (JASMINE COL Comments: PATIENT NOT FASTINGPERFORMED BY: [facility]CoH[facility] HospitalYnwdyr0408 [facility] [id number] COUNT) ([id number]) Result 1 NG36 (Normal) Comments: No growth in 36 - 48 hours. Urine Culture,Comprehensive Final report (Normal) :07 Urinalysis, Office ([id number]) UA - BILIRUBIN Negative (Normal) UA - BLOOD Hemolyzed Trace (Normal) UA - GLUCOSE Negative (Normal) UA - KETONES Negative mg/dL (Normal) UA - LEUKOCYTE ESTERASE Negative (Normal) UA - NITRITE Negative (Normal) UA - PH 7.5 (Normal) UA - PROTEIN Negative mg/dL (Normal) UA - SPECIFIC GRAVITY 1.015 (Normal) URINE UROBILINGN JASMINE TIMED Normal mg/dL (Normal) :37 LIPID LDL 81 mg/dL (Normal) Range: 0-130 VLDL 13 mg/dL (Normal) Range: 5-40 CHOL 150 mg/dL (Normal) Comments: <200 mg/dL Jmxeqlolt229-817 mg/dL Borderline>240 mg/dL High Risk HDL 56 mg/dL (Normal) Comments: Reference RangeHDL <40 mg/dL Low HDL CholesterolHDL >or= 60 mg/dL High HDL Cholesterol TRIG 67 mg/dL (Normal) Comments: Serum Triglycerides Reference IntervalNormal <150 mg/dLBorderline high 150 - 199 mg/dLHigh 200 - 499 mg/ dLVery High > or = 500 mg/dL :36 CBC, EMPLOYEE HCT 38.0 % (Normal) Range: 37-47 HGB 13.0 g/dL (Normal) Range: 12.0-16.0 MCH 30.7 pg (Normal) Range: 27.0-32.0 MCHC 34.2 g/dL (Normal) Range: 32-36 MCV 89.6 fL (Normal) Range: 81-99 MPV 9.0 fL (Normal) Range: 6.5-12.0 PLT 267 K/mm3 (Normal) Range: 150-450 RBC 4.24 {M/mm3} (Normal) Range: 4.2-5.4 RDW 13.2 % (Normal) Range: 11.6-14.6 WBC 5.6 K/mm3 (Normal) Range: 4.4-11.0 :36 EMP PROF HDL 56 mg/dL (Normal) Comments: Reference RangeHDL <40 mg/dL Low HDL CholesterolHDL >or= 60 mg/dL High HDL Cholesterol LDL 81 mg/dL (Normal) Range: 0-130 TRIG 67 mg/dL (Normal) Comments: Serum Triglycerides Reference IntervalNormal <150 mg/dLBorderline high 150 - 199 mg/dLHigh 200 - 499 mg/ dLVery High > or = 500 mg/dL VLDL 13 mg/dL (Normal) Range: 5-40 ALK P 75 U/L (Normal) Range: 50-136 AST 20 U/L (Normal) Range: 15-37 CA 9.0 mg/dL (Normal) Range: 8.5-10.1 CHOL 150 mg/dL (Normal) Comments: <200 mg/dL Zpajlqkks574-554 mg/dL Borderline>240 mg/dL High Risk LDH 160 U/L (Normal) Range: 100-190 PHOS 4.3 mg/dL (Normal) Range: 2.5-4.9 T BILI 0.40 mg/dL (Normal) Range: 0.00-1.00 A/G 1.2 {RATIO} (Normal) Range: 0.9-2.4 ALB 4.1 g/dL (Normal) Range: 3.4-5.0 BUN 12 mg/dL (Normal) Range: 7-18 BUN/CRE 15.0 {RATIO} (Normal) Range: 10-20 CREAT,SERUM 0.8 mg/dL (Normal) Range: 0.6-1.0 EST GFR 76 mL/min (Normal) EST GFR - AA 92 mL/min (Normal) GLOB 3.5 g/dL (Normal) Range: 2.7-4.2 GLU 82 mg/dL (Normal) Range: 70-110 T PROT 7.6 g/dL (Normal) Range: 6.4-8.2 URIC 4.2 mg/dL (Normal) Range: 2.6-6.0 04-Feb-20107:36 EMP URINALYSIS LEUK ESTERASE SeeNote (Normal) Comments: Result: NEGATIVE NITRITE UR SeeNote (Normal) Comments: Result: NEGATIVE OCCULT BLOOD-UR SeeNote (Normal) Comments: Result: NEGATIVE BILIRUBIN URINE SeeNote (Normal) Comments: Result: NEGATIVE KETONE UR SeeNote mg/dL (Normal) Comments: Result: NEGATIVE pH UR 6.5 (Normal) Range: 5.0-8.0 PROT DIPSTX SeeNote (Normal) Comments: Result: NEGATIVE SP.GR. DIPSTX <=1.005 (Normal) Range: 1.002-1.030 UROBILI 0.2 EU/dl (Normal) Range: 0.2 - 1.0 CLARITY CLEAR (Normal) GLUCOSE, UR SeeNote (Normal) Comments: Result: NEGATIVE COLOR YELLOW (Normal) 37-Wyl-226523:10 BILAT SCRN DIGITAL & CAD Radiology See Note Comments: Exam Number: [id number] MAMMOGRAPHY - BILATERAL SCREENING INDICATION:Routine annual screening examination. PERTINENT HISTORY:Non-contributory. TECHNIQUE:Digital examination. Mediolateral oblique (MLO) an Report (Normal) d craniocaudad(CC) views of both breasts were obtained. CAD was performed on thisstudy. COMPARISON:. September 03, 2007, December 15 2008 FINDINGS:The breast composition is heterogeneously dense.There are scatte red areas of asymmetric rectal density throughoutboth breasts. There is a stereotactic clip in the upper outerquadrant of the left breast. There are no suspicious calcificationsidentified. No other sign ificant abnormalities are identified. IMPRESSION:Normal bilateral screening mammogram. Yearly follow-up recommended. ASSESSMENT CATEGORY:Category 2: Benign finding(s) Approximately 10% of breast cancers are not detected by mammography.A normal mammogram should not delay biopsy of a clinicallysuspicious abnormality.ADDENDUM: [id number] [facility] [place]CREEN[place] INDICATION:Routine annua l screening examination. PERTINENT HISTORY:Non-contributory. TECHNIQUE:Digital examination. Mediolateral oblique (MLO) and craniocaudad(CC) views of both breasts were obtained. CAD was performed on this study. COMPARISON:. September 03, 2007, December 15 2008 FINDINGS:The breast composition is heterogeneously dense.There are scattered areas of asymmetric rectal density throughoutboth breasts. There is a stereot actic clip in the upper outerquadrant of the left breast. There are no suspicious calcificationsidentified. No other significant abnormalities are identified. IMPRESSION:Normal bilateral screening mammo gram. Yearly follow-up recommended. ASSESSMENT CATEGORY:Category 2: Benign finding(s) Approximately 10% of breast cancers are not detected by mammography.A normal mammogram should not delay biopsy of a clinicallysuspicious abnormality. ADDENDUM This is an addendum to the mammogram on Herman Leonard dated Jan. The second sentence under findings should read, there arescattered areas of asymmetric parenchymal density throughout bothbreasts.This addendum is being created for the purpose of attach ing a ResultCode to this exam.ADDENDUM: [id number] HPBI/MDS Reported By: GISSELLE GONZALES M.D. 08-Wgi-[id number]:09 DEXA BONE DENSITY STUDY (HP) Radiology Report See Note Comments: Exam Number: [id number] CLINICAL:The patient is a 69-year-old female who is postmenopausal with pasthistory of hormone replacement therapy. History of fracture of D5kcmxyz history of osteoporosis EXAMINA (Normal) TION:DUAL ENERGY X-RAY ABSORPTIOMETRY / DEXA. TECHNIQUE:Bone Density Measurements (BMD) of lumbar spine and bilateral hipswere obtained using a BarEye scanner. COMPARISON:March 24 999, October 29, 2002, November 13, 2003, November 30, 20052008. FINDINGS: Lumbar Spine (L1-L4): g/cm2 (0.970) / T-score (-1.7 ) / Z-score (0.0)Left Femur Total: g/cm2 (0.71 ) / T-score (-1.8 ) / Z-score ( -0.3)Right Femur Total: g/cm2 (0.737 ) / T-score (-2.2 ) / Z-score (-0.6)Digital lateral view for evaluation vertebral deformity onlydemonstrates a mild compression fracture of L1 Changes in bone minera l density since the previous examination areas follows: Lumbar Spine (L1-L4): Increased 1.7 %.Left Femur Total: Unchanged %.Right Femur Total: Not available %. IMPRESSION:The patient is considered osteo penic, as outlined above, accordingto World Health Organization (WHO) criteria. Fracture risk ismoderate. Reference Information:The T-score is the number of standard deviations above or below thestandar d which is normal for young adults at their peak bone mineraldensity. The World Health Organization (WHO) interprets the T-scoresas follows: Above -1 Normal bone densityBetween -1 and -2.5 OsteopeniaEqu al to / or below -2.5 Osteoporosis As a practical clinical guideline, osteopenia may be graded asfollows:Mild -1 through -1.5Moderate -1.6 through -2.0Severe - 2.1 through -2.4 The Z-score is the number of standard deviations above or belowage-matched controls. A Z-score of less than -1.5 would beconsidered abnormal. References:1. NIH Osteoporosis and Related Bone Diseases http://www.osteo.org2. [employer] [facility] Society for Clinical Densitometryhttp://www.iscd.org3. National Osteoporosis Foundation http://www.nof.org Reported By: GISSELLE GONZALES M.D. 24-Dec-19 VIT D,25 94536 39.0 ng/mL Range: 32.0-100.0 1012:08 (Normal) Comments: Recent studies consider the lower limit of 32.0 ng/mL to isabel threshold for optimal health.Sheng BURNETT. J Nutr. 2004;135(2):317- 22.Performed at: [place] [address]Lab Director: Korin Harris MD, Phone: [phone] 29-Oct-19 C DIF TOXIN/AG See Note Comments: C. DIFF ANTIGENS NEGATIVE 105:40 (Normal) 72-Whb-26081:40 CUL STOOL/SHIG SHIGA-TOXIN See Note (Normal) Comments: SHIGA TOXIN 1 AND SHIGA TOXIN 2 NOT DETECTED CULTURE, STOOL See Note (Normal) Comments: No Salmonella, Shigella, Yersinia or Campylobacter isolated.No significant amount of Staphylococcus aureusor yeast-like organisms isolated. :40 O AND P See Note (Normal) Comments: OVA AND PARASITES EXAM, ROUTINEThese results were obtainedusing wet preparation(s) andtrichrome stained smear. Thistest does not include testingfor Crytosporidium parvum,Cyclospora, or Microsporidia.__ TESTING PERFORMED AT [facility]. ORIGINAL REPORT ONFILE IN LAB CONTAINS ADDITIONAL TEST SITE INFORMATION. OVA/ PARASITES EXAM NO OVA, CYSTS, OR PARASITES FOUND. 02-Kgv-92916:40 WBC,STOOL See Note (Normal) Comments: FECAL WBCs NONE SEEN 78-Suz-[id number]:25 ABDOMEN/PELVIS WITH CONTRAST Radiology Report See Note (Normal) Comments: Exam Number: [id number] CLINICAL:This is a 68-year-old female patient with history of left lowquadrant pain. CT ABDOMEN AND PELVIS WITH CONTRAST TECHNIQUE:Transaxial images were obtained from the dome of the diaphragm tothe symphysis pubis with oral contrast. 100 ml of Isovue- 300contrast was administered intravenously. Multiplanar coronal andsagittal images were reformatted. COMPARISON:Comparison is edilma daniel with prior study dated December 30, 2007. FINDINGS:The visualized lung bases are unremarkable. There is a focal scar atthe right base. Normal enhanced liver. Normal gallbladder and biliary system. Normal enhanced spleen. Normal pancreas. Normal bilateral adrenal glands. Normal size of the right kidney. Normal excretion of contrastmaterial of the right kidney. There is no right renal mass. Thereare no r ight renal calculi. There is no right hydronephrosis. Normalvisualized right ureter. Normal size of the left kidney. Normal excretion of contrastmaterial of the left kidney. There is no left renal mass. There areno left renal calculi. There is no left hydronephrosis. Normalvisualized left ureter. Normal visualized stomach. Normal small intestine. There is evidenceof sigmoid diverticulosis with no radi ographic evidence ofdiverticulitis at this time. The region of the appendix is normal. Normal mesentery and peritoneum. There is no free fluid in the abdomen. There is no free air in theabdomen. Normal retroperitoneum. Normal abdominal aorta. Normal visualized pelvic arteries. Normalinferior vena cava. Normal opacified urinary bladder. There is no pelvic mass lesion. There is no pelvic fluid. There is no pelvic lymphadenopathy. Normal abdominal wall. Normal osseous structures. IMPRESSION:Normal enhanced CT of the abdomen and pelvis.Sigmoid diverticulosis with no radiographic evidence ofdiverticulitis at this time. Reported By: MICHAEL ALONSO : C-REACTIVE PROT 30.00 mg/L Range: 0.0-3.0 56 (Abnormal) Comments: C-Reactive Protein (CRP) provides useful information for thediagnosis, therapy and monitoring of inflammatory processesand associated diseases. For the evaluation of Relative Riskfor Cardiovascular Dise ase, a High Sensitivity CRP (HSCRP)should be ordered. :56 CBCD,SMEAR DIFF EOS 9 % (Abnormal) Range: 0-5 MONOCYTE 13 % (Abnormal) Range: 0-10 PLT EST SeeNote (Normal) Comments: Result: ADEQUATE RED CELL MORPH SeeNote {NORMAL} (Normal) Comments: Result: NORM C+C ABSOLUTE NEUT 2.9 3/uL (Normal) Range: 2.0-7.7 BAND 1 % (Normal) Range: 0-5 CELLS COUNTED 100 (Normal) HCT 35.6 % (Abnormal) Range: 37-47 HGB 12.0 g/dL (Normal) Range: 12.0-16.0 LYMPH 26 % (Normal) Range: 19-41 MCH 30.2 pg (Normal) Range: 27.0-32.0 MCHC 33.7 g/dL (Normal) Range: 32-36 MCV 89.6 fL (Normal) Range: 81-99 PLT 335 K/mm3 (Normal) Range: 150-450 RBC 3.98 {M/mm3} (Abnormal) Range: 4.2-5.4 RDW 13.2 % (Normal) Range: 11.6-14.6 SEGS 51 % (Normal) Range: 47-70 WBC 6.0 K/mm3 (Normal) Range: 4.4-11.0 :56 COMP METABOLIC ALT 29 U/L (Normal) Range: 12-78 CL 103 mmol/L (Normal) Range: 98-107 CO2 29.0 mmol/L (Normal) Range: 21.0-32.0 GAP 6 (Normal) Range: 5-15 K 4.0 mmol/L (Normal) Range: 3.5-5.1 NA 138 mmol/L (Normal) Range: 136-145 T BILI 0.20 mg/dL (Normal) Range: 0.00-1.00 A/G 0.9 {RATIO} (Normal) Range: 0.9-2.4 ALB 3.6 g/dL (Normal) Range: 3.4-5.0 ALK P 95 U/L (Normal) Range: 50-136 AST 20 U/L (Normal) Range: 15-37 CA 9.5 mg/dL (Normal) Range: 8.5-10.1 GLOB 4.1 g/dL (Normal) Range: 2.7-4.2 BUN 17 mg/dL (Normal) Range: 7-18 BUN/CRE 21.3 {RATIO} (Abnormal) Range: 10-20 CREAT,SERUM 0.8 mg/dL (Normal) Range: 0.6-1.0 EST GFR 76 mL/min (Normal) EST GFR - AA 92 mL/min (Normal) GLU 86 mg/dL (Normal) Range: 70-110 T PROT 7.7 g/dL (Normal) Range: 6.4-8.2 [id number] COMPLETE UA BACTERIA RARE {/hpf} (Normal) LEUK ESTERASE SeeNote (Normal) Comments: Result: NEGATIVE MUCUS, URINE 0 SEEN {/hpf} (Normal) RBC-UA 0 SEEN {/hpf} (Normal) Range: 0-5 SQUAM EPI SeeNote {/hpf} (Normal) Range: 5-10 Comments: Result: 0-5 SEEN WBC SeeNote {/hpf} (Normal) Range: 0-5 Comments: Result: 0-5 SEEN NITRITE UR SeeNote (Normal) Comments: Result: NEGATIVE OCCULT BLOOD-UR SeeNote (Abnormal) Comments: Result: TRACE-INTACT pH UR 6.0 (Normal) Range: 5.0-8.0 PROT DIPSTX SeeNote (Normal) Comments: Result: NEGATIVE SP.GR. DIPSTX 1.015 (Normal) Range: 1.002-1.030 UROBILI 0.2 EU/dl (Normal) Range: 0.2 - 1.0 KETONE UR SeeNote mg/dL (Normal) Comments: Result: NEGATIVE BILIRUBIN URINE SeeNote (Normal) Comments: Result: NEGATIVE CLARITY CLEAR (Normal) GLUCOSE, UR SeeNote (Normal) Comments: Result: NEGATIVE COLOR YELLOW (Normal) :56 CULTURE, URINE URINE CULTURE See Note {CFU/mL} (Normal) Comments: COLONY COUNT 1000-10,000 ORGANISM 1: MIXED GRAM POSITIVE ORGANISMS :56 ESR SED RATE 48 mm/h (Abnormal) Range: 0-30 [id number] URINE ALEX CULTURE (JASMINE Comments: PATIENT NOT FASTINGPERFORMED BY: [facility] [id number] [facility] [id number] Information: SRC:UR [id number] COL COUNT) ([id number]) Result 1 NG36 (Normal) Comments: No growth in 36 - 48 hours. Urine Culture,Comprehensive Final report (Normal) [id number] Urinalysis, Office ([id number]) UA - LEUKOCYTE ESTERASE Small (Normal) UA - NITRITE Negative (Normal) URINE UROBILINGN JASMINE TIMED 2 mg/dL (Normal) UA - PROTEIN Negative mg/dL (Normal) UA - PH 7.0 (Normal) UA - BLOOD Hemolyzed Trace (Normal) UA - SPECIFIC GRAVITY 1.015 (Normal) UA - KETONES Negative mg/dL (Normal) UA - BILIRUBIN Negative (Normal) UA - GLUCOSE Negative (Normal) [id number] BREAST UNILATERAL US () Radiology Report See Note (Normal) Comments: Exam Number: [id number] CLINICAL:The patient is a 68-year-old female with a left breast density.History of biopsy which are came back negative. A stereotactic clipis in place. Ultrasound perf ormed to clarissa luate the possibility ofchange EXAMINATION:TARGETED LEFT BREAST ULTRASOUND CURRENT TECHNIQUE:High-resolution real-time linear images of the left breast wereobtained at approximately 1 o'clock 5 cm from the nipple. COMPARISON:April 22 2009. FINDINGS:As seen at the previous examination, there is a well defined noduleat one o'clock. There is a clip within the it. The nodule measures 7x 3 x 6 mm on th e current study. The nodule measured 7 x 4 x 7 mm onthe previous study. The nodule therefore is stable IMPRESSION:Stable nodule containing a stereotactic localization clip. There isno radiographic evide nce of malignancy identified. If there is nosuspicious palpable abnormality follow-up mammogram in one year isrecommended. Reported By: GISSELLE GONZALES M.D. :03 LIPID HDL 48 mg/dL (Normal) Comments: Reference RangeHDL <40 mg/dL Low HDL CholesterolHDL >or= 60 mg/dL High HDL Cholesterol LDL 83 mg/dL (Normal) Range: 0-130 VLDL 16 mg/dL (Normal) Range: 5-40 TRIG 80 mg/dL (Normal) Comments: Serum Triglycerides Reference IntervalNormal <150 mg/dLBorderline high 150 - 199 mg/dLHigh 200 - 499 mg/ dLVery High > or = 500 mg/dL CHOL 147 mg/dL (Normal) Comments: <200 mg/dL Bbjnvedla142-393 mg/dL Borderline>240 mg/dL High Risk :03 LIVER ALB 4.2 g/dL (Normal) Range: 3.4-5.0 ALK P 66 U/L (Normal) Range: 50-136 ALT 29 U/L (Normal) Range: 12-78 AST 20 U/L (Normal) Range: 15-37 D BILI 0.09 mg/dL (Normal) Range: 0.00-0.30 T BILI 0.30 mg/dL (Normal) Range: 0.00-1.00 T PROT 7.9 g/dL (Normal) Range: 6.4-8.2 [id number] Urinalysis, Office ([id number]) UA - LEUKOCYTE ESTERASE Trace (Normal) UA - NITRITE Negative (Normal) URINE UROBILINGN JASMINE TIMED 2 mg/dL (Normal) UA - PROTEIN Negative mg/dL (Normal) UA - PH 7.0 (Normal) UA - BLOOD Non Hemolyzed Trace (Normal) UA - SPECIFIC GRAVITY 1.005 (Normal) UA - KETONES Negative mg/dL (Normal) UA - BILIRUBIN Negative (Normal) UA - GLUCOSE Negative (Normal) :57 LIPID CHOL 234 mg/dL (Abnormal) Comments: <200 mg/dL Desirable 200-240 mg/dL Borderline >240 mg/dL High Risk HDL 49 mg/dL (Normal) Comments: Reference Range HDL <40 mg/dL Low HDL Cholesterol HDL >or= 60 mg/dL High HDL Cholesterol LDL 165 mg/dL (Abnormal) Range: 0-130 TRIG 102 mg/dL (Normal) Comments: Serum Triglycerides Reference Interval Normal <150 mg/dL Borderline high 150 - 199 mg/dL High 200 - 499 mg/dL Very High > or = 500 mg/dL VLDL 20 mg/dL (Normal) Range: 5-40 :57 LIVER ALB 4.0 g/dL (Normal) Range: 3.4-5.0 ALK P 59 U/L (Normal) Range: 50-136 ALT 26 U/L (Abnormal) Range: 30-65 AST 14 U/L (Abnormal) Range: 15-37 D BILI 0.05 mg/dL (Normal) Range: 0.00-0.30 T BILI 0.30 mg/dL (Normal) Range: 0.00-1.00 T PROT 7.9 g/dL (Normal) Range: 6.4-8.2 :56 LOWER EXT.JOINT ONLY (ROUTINE) Radiology Report See Note (Normal) Comments: Exam Number: [id number] CLINICAL: 68-year-old female with knee pain lateral and posteriorly. The stiffness. No prior surgery. MRI RIGHT KNEE COMPARISON: X-rays of the right knee on on 07/06 showed m ild degenerative changes. 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 FINDINGS: There is a full thickness radial tear of the hard rock miner blasting ior horn of the medial meniscus extending to the peripheral circumferential fibers and involving the posterior medial meniscal root ligament, with a gap of approximately 8 mm (coronal STIR series 2 imag e 7). There is meniscal extrusion. The body and anterior horn of the medial meniscus are normal. The findings were not present on the previous study. Normal hyaline articular cartilage of the medial femorotibial compartment. Normal medial femoral condyle and medial tibial plateau. The medial collateral ligamentous complex is normal without a ligamentous sprain. Normal distal semimembranosus, gra cilis and semitendinosus tendons. Normal lateral meniscus without a meniscal tear. Normal hyaline articular cartilage of the lateral femorotibial compartment. Normal lateral femoral condyle and latera l tibial plateau. There is a normal iliotibial band. The lateral collateral fibular ligament is normal without a ligamentous sprain. The popliteus tendon is normal. Normal biceps femoris tendon. The proximal tibiofibular articulation is normal. The anterior cruciate ligament is normal without a sprain. Normal posterior cruciate ligament. Normal congruent patellofemoral articulation. Normal hyali ne cartilage of the medial and lateral patellar facets. Normal hyaline cartilage of the medial and lateral trochlear condyles. The medial and lateral patellar retinaculum are normal. Normal quadriceps tendon. Normal patellar tendon. Normal Hoffa's infrapatellar fat pad. There is no joint effusion. There is no popliteal cyst. There is no extravasated joint effusion. The visualized osseous structu res, including the distal femur, proximal tibia and fibula are otherwise normal. The visualized muscle groups of the distal thigh and proximal leg are normal. IMPRESSION:Normal MRI examination of the knee. ADDENDUM Please note the following correction for complete report: CLINICAL: 68-year-old female with knee pain lateral and posteriorly. The stiffness. No prior surgery. MRI RIGHT KNEE COMPARISON: X-rays of the right knee on on 07/06/05 showed mild degenerative changes. 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 FINDINGS: There is a full thickness radial tear of the posterior horn of the medial meniscus extending to the peripheral circumferential fibers and involving the posterior medial meniscal root ligament, with a gap of approximately 8 mm (coronal STIR series 2 image 7). A peripheral tear is noted in the meniscal capsular junction of the posterior horn (sagittal proton density series 4 image 30 ). There is meniscal extrusion. The body and anterior horn of the medial meniscus are normal. The findings were not present on the previous study. There is advanced arthrosis of the medial compartmen t, progressing since last examination. There is diffuse articular cartilage thinning with exposure of the subchondral bone plate in the posterior aspect of the lateral femoral condyle, without shoulderi ng (sagittal proton density series 4 image 26). Subchondral cysts are noted in the medial tibial plateau, with surrounding reactive bone marrow edema. There is extensive bone marrow edema in the tibia l spine, with subcortical cyst formation. The medial collateral ligamentous complex is normal without a ligamentous sprain. Normal distal semimembranosus, gracilis and semitendinosus tendons. Normal la teral meniscus without a meniscal tear. Normal hyaline articular cartilage of the lateral femorotibial compartment. Normal lateral femoral condyle and lateral tibial plateau. There is a normal iliotib ial band. The lateral collateral fibular ligament is normal without a ligamentous sprain. The popliteus tendon is normal. Normal biceps femoris tendon. The proximal tibiofibular articulation is norm al. There is intrasubstance cystic degeneration of the anterior cruciate ligament (sagittal proton density series 4 image 20). Normal posterior cruciate ligament. Normal congruent patellofemoral articu lation. There is arthrosis of the patellofemoral joint with articular cartilage thinning, grade 3 and 4 (axial proton density series 6 image 7), involving predominantly the medial facet and apex of the patella. Normal hyaline cartilage of the medial and lateral trochlear condyles. The medial and lateral patellar retinaculum are normal. Normal quadriceps tendon. Normal patellar tendon. Normal Gui a's infrapatellar fat pad. There is a small joint effusion. There is no popliteal cyst. There is no extravasated joint effusion. Again noted is an intramedullary lesion in the distal femur, unchanged in size since the last examination and consistent with a benign enchondroma (coronal STIR series image 12). The visualized muscle groups of the distal thigh and proximal leg are normal. IMPRESSION:Comp doc tear of the posterior horn of the medial meniscus, with a complete radial tear and a vertical component at the level of the meniscal capsular junction. This tear was not present on the last examina tion. Advanced arthrosis of the medial compartment and to a lesser degree the patellofemoral joint. Findings are progressing since the last examination. Intrasubstance cystic degeneration of the anteri or cruciate ligament. 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 Reported By: John Alcocer M.D. [id number] KNEE,4 OR MORE VIEWS (MT) Radiology Report See Note (Normal) Comments: Exam Number: [id number] CLINICAL:Pain X-RAY EXAMINATION RIGHT KNEE TECHNIQUE:4 view(s) of the knee were obtained. COMPARISON:July 06, 2005 FINDINGS:There is generalized osteopenia. No acute fracture or dislocation. Moderate narrowing of the medial joint space is noted. There is no soft tissue swelling or joint effusion. There is sclerosis in the distal diametaphysis of the femur possibly an infa rct or enchondroma. Small retropatellar spurs are noted.. IMPRESSION:Mild degenerative change. Osteopenia. Reported By: ARIADNA PERAZA M.D. 5-[id number]:23 L/S SPINE,MIN 4 VIEWS (MT) Radiology Report See Note (Normal) Comments: Exam Number: [id number] CLINICAL:Low back pain, radiculopathy X-RAY EXAMINATION: LUMBAR SPINE TECHNIQUE:Five views (AP, Lateral, oblique and coned down lumbosacral views) of the lumbar spine were obtain ed. COMPARISON:None. FINDINGS:There is intravertebral disk space narrowing at L3 -- L4, L4 -- L5 and L5 -- S1. Small Ancure ossified to notice L4 and L5. There is compression of the superior endplate of L1. There is no posterior retropulsion. There is generalized osteopenia. IMPRESSION:DD/DJD L3 -- S1. Concavity involving the superior endplate of L1, likely Schmorl's node, no posterior retropulsi on, no other evidence to suggest acute fracture. Reported By: ARIADNA PERAZA M.D. [id number] EMP URINALYSIS BILIRUBIN URINE SeeNote (Normal) Comments: Result: Negative CLARITY CLEAR (Normal) GLUCOSE, UR SeeNote (Normal) Comments: Result: Negative KETONE UR SeeNote mg/dL (Normal) Comments: Result: Negative LEUK ESTERASE SeeNote (Normal) Comments: Result: Negative NITRITE UR SeeNote (Normal) Comments: Result: Negative OCCULT BLOOD-UR SeeNote (Normal) Comments: Result: Negative pH UR 6.5 (Normal) Range: 5.0-8.0 PROT DIPSTX SeeNote (Normal) Comments: Result: Negative SP.GR. DIPSTX <=1.005 (Normal) Range: 1.002-1.030 UROBILI 0.2 EU/dl (Normal) Range: 0.2 - 1.0 COLOR YELLOW (Normal) [id number] ROUTINE UA BILIRUBIN URINE SeeNote (Normal) Comments: Result: NEGATIVE CLARITY CLEAR (Normal) COLOR YELLOW (Normal) GLUCOSE, UR SeeNote (Normal) Comments: Result: NEGATIVE KETONE UR SeeNote mg/dL (Normal) Comments: Result: NEGATIVE LEUK ESTERASE SeeNote (Normal) Comments: Result: NEGATIVE NITRITE UR SeeNote (Normal) Comments: Result: NEGATIVE OCCULT BLOOD-UR SeeNote (Normal) Comments: Result: NEGATIVE pH UR 6.5 (Normal) Range: 5.0-8.0 PROT DIPSTX SeeNote (Normal) Comments: Result: NEGATIVE SP.GR. DIPSTX <=1.005 (Normal) Range: 1.002-1.030 UROBILI 0.2 EU/dl (Normal) Range: 0.2 - 1.0 :18 CBCD,SMEAR DIFF RED CELL MORPH SeeNote {NORMAL} (Normal) Comments: Result: NORM C+C CELLS COUNTED 100 (Normal) EOS 4 % (Normal) Range: 0-5 HCT 37.1 % (Normal) Range: 37-47 HGB 12.8 g/dL (Normal) Range: 12.0-16.0 LYMPH 41 % (Normal) Range: 19-41 MCH 30.6 pg (Normal) Range: 27.0-32.0 MCHC 34.5 g/dL (Normal) Range: 32-36 MCV 88.9 fL (Normal) Range: 81-99 MONOCYTE 2 % (Normal) Range: 0-10 PLT 264 K/mm3 (Normal) Range: 150-450 PLT EST SeeNote (Normal) Comments: Result: ADEQUATE RBC 4.18 {M/mm3} (Abnormal) Range: 4.2-5.4 RDW 13.3 % (Normal) Range: 11.6-14.6 SEGS 53 % (Normal) Range: 47-70 WBC 5.6 K/mm3 (Normal) Range: 4.4-11.0 :18 COMP METABOLIC A/G 1.0 {RATIO} (Normal) Range: 0.9-2.4 ALB 3.9 g/dL (Normal) Range: 3.4-5.0 ALK P 81 U/L (Normal) Range: 50-136 ALT 21 U/L (Abnormal) Range: 30-65 AST 10 U/L (Abnormal) Range: 15-37 BUN 17 mg/dL (Normal) Range: 7-18 BUN/CRE 21.3 {RATIO} (Abnormal) Range: 10-20 CA 9.4 mg/dL (Normal) Range: 8.5-10.1 CL 104 mmol/L (Normal) Range: 98-107 CO2 27.0 mmol/L (Normal) Range: 21.0-32.0 CREAT,SERUM 0.8 mg/dL (Normal) Range: 0.6-1.0 EST GFR 76 mL/min (Normal) EST GFR - AA 92 mL/min (Normal) GAP 9 (Normal) Range: 5-15 GLOB 4.0 g/dL (Normal) Range: 2.7-4.2 GLU 84 mg/dL (Normal) Range: 70-110 K 3.9 mmol/L (Normal) Range: 3.5-5.1 NA 140 mmol/L (Normal) Range: 136-145 T BILI 0.40 mg/dL (Normal) Range: 0.00-1.00 T PROT 7.9 g/dL (Normal) Range: 6.4-8.2 :18 LIPID CHOL 227 mg/dL (Abnormal) Comments: <200 mg/dL Desirable 200-240 mg/dL Borderline >240 mg/dL High Risk HDL 48 mg/dL (Normal) Comments: Reference Range HDL <40 mg/dL Low HDL Cholesterol HDL >or= 60 mg/dL High HDL Cholesterol LDL 154 mg/dL (Abnormal) Range: 0-130 TRIG 126 mg/dL (Normal) Comments: Serum Triglycerides Reference Interval Normal <150 mg/dL Borderline high 150 - 199 mg/dL High 200 - 499 mg/dL Very High > or = 500 mg/dL VLDL 25 mg/dL (Normal) Range: 5-40 :18 TSH 1.91 {uIU/mL} (Normal) Range: 0.358-3.74 :17 CBC, EMPLOYEE HCT 37.1 % (Normal) Range: 37-47 HGB 12.8 g/dL (Normal) Range: 12.0-16.0 MCH 30.6 pg (Normal) Range: 27.0-32.0 MCHC 34.5 g/dL (Normal) Range: 32-36 MCV 88.9 fL (Normal) Range: 81-99 MPV 9.3 fL (Normal) Range: 6.5-12.0 PLT 264 K/mm3 (Normal) Range: 150-450 RBC 4.18 {M/mm3} (Abnormal) Range: 4.2-5.4 RDW 13.3 % (Normal) Range: 11.6-14.6 WBC 5.6 K/mm3 (Normal) Range: 4.4-11.0 :17 CBC, EMPLOYEE HCT 37.1 % (Normal) Range: 37-47 HGB 12.8 g/dL (Normal) Range: 12.0-16.0 MCH 30.6 pg (Normal) Range: 27.0-32.0 MCHC 34.5 g/dL (Normal) Range: 32-36 MCV 88.9 fL (Normal) Range: 81-99 MPV 9.3 fL (Normal) Range: 6.5-12.0 PLT 264 K/mm3 (Normal) Range: 150-450 RBC 4.18 {M/mm3} (Abnormal) Range: 4.2-5.4 RDW 13.3 % (Normal) Range: 11.6-14.6 WBC 5.6 K/mm3 (Normal) Range: 4.4-11.0 :17 EMP PROF A/G 1.0 {RATIO} (Normal) Range: 0.9-2.4 ALB 3.9 g/dL (Normal) Range: 3.4-5.0 ALK P 81 U/L (Normal) Range: 50-136 AST 10 U/L (Abnormal) Range: 15-37 BUN 17 mg/dL (Normal) Range: 7-18 BUN/CRE 21.3 {RATIO} (Abnormal) Range: 10-20 CA 9.4 mg/dL (Normal) Range: 8.5-10.1 CHOL 227 mg/dL (Abnormal) Comments: <200 mg/dL Desirable 200-240 mg/dL Borderline >240 mg/dL High Risk CREAT,SERUM 0.8 mg/dL (Normal) Range: 0.6-1.0 EST GFR 76 mL/min (Normal) EST GFR - AA 92 mL/min (Normal) GLOB 4.0 g/dL (Normal) Range: 2.7-4.2 GLU 84 mg/dL (Normal) Range: 70-110 HDL 48 mg/dL (Normal) Comments: Reference Range HDL <40 mg/dL Low HDL Cholesterol HDL >or= 60 mg/dL High HDL Cholesterol LDH 160 U/L (Normal) Range: 100-190 LDL 154 mg/dL (Abnormal) Range: 0-130 PHOS 3.6 mg/dL (Normal) Range: 2.5-4.9 T BILI 0.40 mg/dL (Normal) Range: 0.00-1.00 T PROT 7.9 g/dL (Normal) Range: 6.4-8.2 TRIG 126 mg/dL (Normal) Comments: Serum Triglycerides Reference Interval Normal <150 mg/dL Borderline high 150 - 199 mg/dL High 200 - 499 mg/dL Very High > or = 500 mg/dL URIC 4.3 mg/dL (Normal) Range: 2.6-6.0 VLDL 25 mg/dL (Normal) Range: 5-40 06-Jan-20097:17 EMP PROF HDL 48 mg/dL (Normal) Comments: Reference Range HDL <40 mg/dL Low HDL Cholesterol HDL >or= 60 mg/dL High HDL Cholesterol LDL 154 mg/dL (Abnormal) Range: 0-130 TRIG 126 mg/dL (Normal) Comments: Serum Triglycerides Reference Interval Normal <150 mg/dL Borderline high 150 - 199 mg/dL High 200 - 499 mg/dL Very High > or = 500 mg/dL VLDL 25 mg/dL (Normal) Range: 5-40 A/G 1.0 {RATIO} (Normal) Range: 0.9-2.4 ALB 3.9 g/dL (Normal) Range: 3.4-5.0 ALK P 81 U/L (Normal) Range: 50-136 AST 10 U/L (Abnormal) Range: 15-37 BUN 17 mg/dL (Normal) Range: 7-18 BUN/CRE 21.3 {RATIO} (Abnormal) Range: 10-20 CA 9.4 mg/dL (Normal) Range: 8.5-10.1 CHOL 227 mg/dL (Abnormal) Comments: <200 mg/dL Desirable 200-240 mg/dL Borderline >240 mg/dL High Risk CREAT,SERUM 0.8 mg/dL (Normal) Range: 0.6-1.0 EST GFR 76 mL/min (Normal) EST GFR - AA 92 mL/min (Normal) GLOB 4.0 g/dL (Normal) Range: 2.7-4.2 GLU 84 mg/dL (Normal) Range: 70-110 LDH 160 U/L (Normal) Range: 100-190 PHOS 3.6 mg/dL (Normal) Range: 2.5-4.9 T BILI 0.40 mg/dL (Normal) Range: 0.00-1.00 T PROT 7.9 g/dL (Normal) Range: 6.4-8.2 URIC 4.3 mg/dL (Normal) Range: 2.6-6.0 :31 DEXA BONE DENSITY STUDY () Radiology Report See Note (Normal) Comments: Exam Number: [id number] BONE DENSITOMETRY HISTORYOsteopenia. TECHNIQUE Bone densitometry of the lumbar spine and both hips is now beingperformed. The best criteria for evaluation of osteoporosis is theT-value, which represents the comparison of the patient's bone mass leigh expected peak bone mass. For most patients, the mean T-value of R4ipdpaaw L4 is used to evaluate the lumbar spine. To evalua te the hip,the lower T-value of the femoral neck or total hip is used. FINDINGSIn this patient, the mean T-value of L1 through L4 is -1.8 which is inthe range of osteopenia. Bone mineral density is jaja sured at 1.2%less than in 1998.Digital lateral view for evaluation of vertebral deformity only demonstrates no compression fractures of lower thoracic or lumbarvertebral bodies.The T-value of the left f emoral neck is -1.8 which is in the range ofosteopenia.The T-value of the total left hip is -1.6 which is in the range ofosteopenia. Bone mineral density is measured at 7.2% less than [id number].The T-valu e of the right femoral neck is -2 which is in the range ofosteopenia.The T- value of the total right hip is -1.7 which is in the range ofosteopenia. IMPRESSIONThere is osteopenia of the lumbar spine and both hips. Reported By: GISSELLE GONZALES M.D. :54 BREAST UNILATERAL US () Radiology Report See Note (Normal) Comments: Exam Number: [id number] TARGETED LEFT BREAST ULTRASOUND HISTORYAbnormal mammogram. High-resolution real-time linear images of the upper half of the leftbreast were obtained. The current study is compare d to the previousmammograms including the most recent previous study of December 17, 2008. At 1 o'clock 4 cm from the nipple there is a small echolucentstructure measuring 4 x 2 x 4 mm. There is mild throu gh transmissionof sound and this is most likely to represent a small cyst which hasnot been identified as a separate structure on the mammographicimages. Just above and lateral to this small cyst also at 1 o'clockis a larger nodule which is inhomogeneous and has slightly irregularborders. There appears to be an area of shadowing arising from thisnodule. The ultrasound characteristics of this nodule , therefore, aresuspicious and surgical evaluation is recommended. When theultrasound findings are compared to the mammogram, the suspiciousnodule on the ultrasound most likely corresponds to a nodule which isseen to the lower of 2 nodules seen in the mediolateral obliqueprojection. It is also most likely medial to the position of the areaof concern on the initial craniocaudal view. However, it is difficultto be absolutely certain which mammographic image corresponds to theultrasound abnormality. It is, therefore, suggested that the lesionbe localized under ultrasound. IMPRESSION1. There is an inhomogeneous solid nodule measuring 5 x 7 x 9 mm at 1o'clock in the left breast. The ultrasound characteristics are ofconcern. Surgical evaluation is recommended. It is suggested thatlocalization be performed under ultrasound.2. The final assessment of the mammogram, therefore, becomessuspicious for malignancy. BIRADS category 4.3. Report was faxed to Dr. Greene's office and the office was called [id number] hours December 22, 2008. Reported By: GISSELLE GONZALES M.D. [id number]-[id number]:35 [facility] DIAG DIGITAL & CAD Radiology Report See Note (Normal) Comments: Exam Number: [id number] MAMMOGRAM, UNILATERAL LEFT DIAGNOSTIC DIGITAL AND CAD HISTORYAbnormal screening study. Full field digital images were obtained in left true lateral and spotmediolatera l oblique an d craniocaudal projections. CAD images werereviewed. The current study is compared to the examinations of May, August 14, 2006, September 03, 2007. There is moderately dense fibroglandular paren chyma present. There isno skin thickening or retraction, architectural distortion, or clusterof suspicious microcalcifications. The images of December 15, 2008, raisethe possibility of 2 densities in the upper half of the left breastcorresponding to an area of asymmetry in the outer half of the breastin the craniocaudal projection. The density in the craniocaudal viewis not persistent. The densities i n the upper half of the breasts aresomewhat variable in appearance on the additional views but remainpresent. To distinguish between superimposition and small nodules,ultrasound is recommended. The pa tient preferred to schedule theultrasound December 21, 2008, rather than having it performed at thistime. IMPRESSIONThere are 2 densities in the upper left breast for which ultrasound isrecommended. The pa tient preferred to schedule the ultrasound forJu2008, rather than having it performed at the current time. FINAL ASSESSMENTNeed additional imaging evaluation. BIRADS Category 0. A letter regardi ng these results has been sent to the patient. This interpretation was rendered by a radiologist certified under theMammography Quality Standards Act of 1992 (MQSA). The mammograms werealso examined w [facility] computer-aided detection software ([employer], [employer], [employer].). Reported By: GISSELLE GONZALES M.D. [id number]-[id number]:30 [facility] DIGITAL & CAD Radiology Report See Note (Normal) Comments: Exam Number: [id number] MAMMOGRAM, BILATERAL SCREENING DIGITAL AND CAD HISTORYRoutine screening. Full field digital images were obtained in mediolateral oblique andcraniocaudal projections. CAD images w ere reviewed. The current study is compared to the examinations of August 14nd September 03, 2007. There is moderately dense fibroglandular parenchyma present. There isno skin thickening or retraction , architectural distortion, or clusterof suspicious microcalcifications. The views of the left breast raisethe possibility of a new nodule in the upper outer quadrant of thebreast. For further evaluat ion, left true lateral and spotmediolateral oblique and craniocaudal views are recommended. IMPRESSIONPossible change in the upper outer quadrant of the left breast. Additional views are recommended. FI NAL ASSESSMENTNeed additional imaging evaluation. BIRADS Category 0. A letter regarding these results has been sent to the patient. This interpretation was rendered by a radiologist certified under th eMammography Quality Standards Act of 1992 (MQSA). The mammograms werealso examined with computer-aided detection software (Review[employer].). Reported By: GISSELLE GONZALES M.D. [id number] BMP BUN 15 mg/dL (Normal) Range: 7-18 BUN/CRE 18.8 {RATIO} (Normal) Range: 10-20 CA 9.4 mg/dL (Normal) Range: 8.5-10.1 CL 104 mmol/L (Normal) Range: 98-107 CO2 29.7 mmol/L (Normal) Range: 21.0-32.0 CREAT,SERUM 0.8 mg/dL (Normal) Range: 0.6-1.0 EST GFR 77 mL/min (Normal) EST GFR - AA 93 mL/min (Normal) GAP 1 (Abnormal) Range: 5-15 GLU 77 mg/dL (Normal) Range: 70-110 K 4.1 mmol/L (Normal) Range: 3.5-5.1 NA 135 mmol/L (Abnormal) Range: 136-145 :01 LIPID CHOL 260 mg/dL (Abnormal) Comments: <200 mg/dL Desirable 200-240 mg/dL Borderline >240 mg/dL High Risk HDL 47 mg/dL (Normal) Comments: Reference Range HDL <40 mg/dL Low HDL Cholesterol HDL >or= 60 mg/dL High HDL Cholesterol LDL 192 mg/dL (Abnormal) Range: 0-130 TRIG 104 mg/dL (Normal) Comments: Serum Triglycerides Reference Interval Normal <150 mg/dL Borderline high 150 - 199 mg/dL High 200 - 499 mg/dL Very High > or = 500 mg/dL VLDL 21 mg/dL (Normal) Range: 5-40 :01 LIVER ALB 4.0 g/dL (Normal) Range: 3.4-5.0 ALK P 90 U/L (Normal) Range: 50-136 ALT 36 U/L (Normal) Range: 30-65 AST 23 U/L (Normal) Range: 15-37 D BILI 0.05 mg/dL (Normal) Range: 0.00-0.30 T BILI 0.28 mg/dL (Normal) Range: 0.00-1.00 T PROT 8.0 g/dL (Normal) Range: 6.4-8.2 :11 AT3 F/I 82109 AT3 AG, IMMUNOL 131 % (Abnormal) Range: 75-130 AT3 FUNCT 67005 131 % (Normal) Range: 75-135 :11 PROT C [id number] PROT C,TP080377 169 % (Abnormal) Range: 74-151 Comments: Performed At: [address] [id number] PROTEIN C 79094 106 % (Normal) Range: 70-140 :11 PROT S [id number] PROTEIN S, FREE 107 % (Normal) Range: 56-124 PROTEIN S, FUNC 82 % (Normal) Range: 60-145 PROTEIN S,TOTAL 137 % (Normal) Range: 58-150 :38 A-CARDIO [id number] Comments: ORDER ALSO STATES ANTIPHOSPHOLIPIDS, WHICH IS A SYNONYM OFANTICARDIOLIPIN ANTICARDIO IgG < 6 {GPL_U/mL} (Normal) Range: 0-10 Comments: Negative: <11 Indeterminate: 11 - 19 Low-Med Positive: 20 - 80 Positive: >80 ANTICARDIO IgM < 6 {MPL_U/mL} (Normal) Range: 0-9 Comments: Negative: <10 Indeterminate: 10 - 19 Low-Med Positive: 20 - 80 Positive: >80 :38 C-REACTIVE PROT 2.98 mg/L (Normal) Range: 0.0-6.0 Comments: Test performed using the Dimension C-Reactive ProteinExtended Range assay method. This assay meets the AHA/CDC 2003 recommendations fordetermining patients at high risk for cardiovasculardisease. Reference: High risk CRP >3.0 mg/L :38 CBCD,SMEAR DIFF BAND 5 % (Normal) Range: 0-5 BASOPHIL 3 % (Abnormal) Range: 0-1 CELLS COUNTED 100 (Normal) EOS 8 % (Abnormal) Range: 0-5 HCT 34.8 % (Abnormal) Range: 37-47 HGB 11.8 g/dL (Abnormal) Range: 12.0-16.0 HYPOCHROMASIA 1+ (Normal) LYMPH 40 % (Normal) Range: 19-41 MCH 29.3 pg (Normal) Range: 27.0-32.0 MCHC 34.0 g/dL (Normal) Range: 32-36 MCV 86.2 fL (Normal) Range: 81-99 MONOCYTE 4 % (Normal) Range: 0-10 PLT 485 K/mm3 (Abnormal) Range: 150-450 PLT EST SLT INC (Normal) RBC 4.04 {M/mm3} (Abnormal) Range: 4.2-5.4 RDW 13.3 % (Normal) Range: 11.6-14.6 RED CELL MORPH N CYTIC {NORMAL} (Normal) SEGS 40 % (Abnormal) Range: 47-70 WBC 5.9 K/mm3 (Normal) Range: 4.4-11.0 :38 COMP METABOLIC A/G 0.9 {RATIO} (Normal) Range: 0.9-2.4 ALB 3.5 g/dL (Normal) Range: 3.4-5.0 ALK P 83 U/L (Normal) Range: 50-136 ALT 33 U/L (Normal) Range: 30-65 AST 21 U/L (Normal) Range: 15-37 BUN 15 mg/dL (Normal) Range: 7-18 BUN/CRE 18.8 {RATIO} (Normal) Range: 10-20 CA 9.3 mg/dL (Normal) Range: 8.5-10.1 CL 106 mmol/L (Normal) Range: 98-107 CO2 28.8 mmol/L (Normal) Range: 21.0-32.0 CREAT,SERUM 0.8 mg/dL (Normal) Range: 0.6-1.0 GAP 7 (Normal) Range: 5-15 GLOB 3.8 g/dL (Normal) Range: 2.7-4.2 GLU 79 mg/dL (Normal) Range: 70-110 K 4.2 mmol/L (Normal) Range: 3.5-5.1 NA 142 mmol/L (Normal) Range: 136-145 T BILI 0.25 mg/dL (Normal) Range: 0.00-1.00 T PROT 7.3 g/dL (Normal) Range: 6.4-8.2 :38 ESR SED RATE 28 mm/h (Normal) Range: 0-30 :38 FAC II [id number] Comments: ORDER ALSO STATES ANTIPHOSPHOLIPIDS, WHICH IS A SYNONYM OFANTICARDIOLIPIN FACTOR II,DNA Comment (Normal) Comments: NEGATIVENo mutation identified.Comment:A point mutation ([id number]) in the Factor II (prothrombin)gene is the second most common cause of inheritedthrombosis and accounts for up to 20% of inhe ritedthrombo philia. The incidence of this mutation in theCaucasian population is 1-2% and in Americans it is0.1%. Heterozygous carriers of this mutation haveprothrombin levels that are 30% higher than norm al,associated with a 3-fold increase for venous thrombosis,but the risk cannot be definitely quantified at this timedue to limited data. The Factor II/prothrombin mutationhas been reported in patients with idiopathic portal veinthrombosis, in patients with cerebral vein thrombosis, inpatients using oral contraceptives, and in patients with placental abruptions and growthrestrictions. A nother common cause of thrombosis is theFactor V Leiden mutation (R506Q). Up to 40% of theFactor II/ prothrombin mutation carriers also carry theFactor Leiden mutation. Testing for other known causes o fthrombophilia may also be pursued. These include the R506Q(Leiden) mutation in the Factor V gene, plasma homocysteinelevels, as well as testing for deficiencies of antithrombinIII, protein C and protein S. :38 FACVL [id number] Comments: ORDER ALSO STATES ANTIPHOSPHOLIPIDS, WHICH IS A SYNONYM OFANTICARDIOLIPIN FACTOR V LEIDEN Comment (Normal) Comments: Result:Single R506Q mutation identified (heterozygote) .Factor V Leiden is a specific mutation (R506Q) in thefactor V gene that is a ssociated wi th an increased risk ofvenous thrombosis. Factor V Leiden is more resistant toinactivation by activated protein C. As a result, factor Vpersists in the circulation leading to a mildhypercoagulable stat e. Factor V Leiden has been reportedin patients with deep vein thrombosis, pulmonary embolus,central retinal vein occulsion, cerebral sinus thrombosis,and hepatic vein thrombosis. The relative risk of venousthrombosis is increased approximately 4-8 fold inindividuals who are heterozygous. About 3-8% of thegeneral [place] and population are heterozygous. Therisk of venous thrombosis increases ex ponentially inpatients with more than one risk factor, including: age,surgery, oral contraceptive use, , elevatedhomocysteine levels, or a Factor II/prothrombin mutation([id number]). Contact you r local [facility] for information onhow to order the Factor II DNA test. :38 LIPID CHOL 207 mg/dL (Abnormal) Comments: <200 mg/dL Desirable 200-240 mg/dL Borderline >240 mg/dL High Risk HDL 34 mg/dL (Abnormal) Comments: Reference Range HDL <40 mg/dL Low HDL Cholesterol HDL >or= 60 mg/dL High HDL Cholesterol LDL 142 mg/dL (Abnormal) Range: 0-130 TRIG 154 mg/dL (Normal) Comments: Serum Triglycerides Reference Interval Normal <150 mg/dL Borderline high 150 - 199 mg/dL High 200 - 499 mg/dL Very High > or = 500 mg/dL VLDL 31 mg/dL (Normal) Range: 5-40 :35 CULTURE, URINE URINE CULTURE See Note (Normal) Comments: Predominant colony type being a gram positive trevor, probableLactobacillus species. COLONY COUNT 50,000-80,000 ORGANISM 1: MIXED GRAM POSITIVE ORGANISMS :35 ROUTINE UA BILIRUBIN URINE SeeNote (Normal) Comments: Result: NEGATIVE CLARITY CLEAR (Normal) COLOR YELLOW (Normal) GLUCOSE, UR SeeNote (Normal) Comments: Result: NEGATIVE KETONE UR SeeNote mg/dL (Normal) Comments: Result: NEGATIVE LEUK ESTERASE SeeNote (Normal) Comments: Result: NEGATIVE NITRITE UR SeeNote (Normal) Comments: Result: NEGATIVE OCCULT BLOOD-UR SeeNote (Normal) Comments: Result: NEGATIVE pH UR 7.0 (Normal) Range: 5.0-8.0 PROT DIPSTX SeeNote (Normal) Comments: Result: NEGATIVE SP.GR. DIPSTX 1.010 (Normal) Range: 1.002-1.030 UROBILI 0.2 EU/dl (Normal) Range: 0.2 - 1.0 :48 Urinalysis, Office (54982) UA - BILIRUBIN Negative (Normal) UA - BLOOD Negative (Normal) UA - GLUCOSE Negative (Normal) UA - KETONES Negative mg/dL (Normal) UA - LEUKOCYTE ESTERASE Trace (Normal) UA - NITRITE Negative (Normal) UA - PH 6.5 (Normal) UA - PROTEIN Negative mg/dL (Normal) UA - SPECIFIC GRAVITY 1.005 (Normal) URINE UROBILINGN JASMINE TIMED 2 mg/dL (Normal) [id number]-Zvr-[id number]:04 BILAT SCRN DIGITAL & CAD Radiology Report See Note (Normal) Comments: Exam Number: [id number] MAMMOGRAM, BILATERAL SCREENING DIGITAL AND CAD HISTORYRoutine screening. Full field digital images were obtained in mediolateral oblique andcraniocaudal projections. A left true lateral view was also obtained.CAD images were reviewed. The current study is compared to the examinations of May 2005 andAugust 2006. There is moderately dense fibroglandular parenchyma present. There isno skin thickening or retraction, architectural distortion, or clusterof suspicious microcalcifications. There are areas of mild asymmetrywhich have not significantly changed. If there is no santana spiciouspalpable abnormality, followup mammogram in 1 year is recommended. IMPRESSIONThere is no radiographic evidence of malignancy identified. FINAL ASSESSMENTBenign findings. BIRADS Category 2. A letter regarding these results has been sent to the patient. This interpretation was rendered by a radiologist certified under theMammography Quality Standards Act of 1992 (MQSA). The mammograms werea lso examined with computer-aided detection software (ReviewZAP.). Reported By: GISSELLE GONZALES M.D. 8-Fqs-[id number]:41 DEXA BONE DENSITY STUDY (HP) Radiology Report See Note (Normal) Comments: Exam Number: [id number] BONE DENSITOMETRY HISTORYOsteopenia. TECHNIQUE Bone densitometry of the lumbar spine and left hip was performed. Thebest criteria for evaluation of osteoporosis is the T-nathalia ue, whichrepresents the comparison of the patient's bone mass to an expectedpeak bone mass. For most patients, the mean T-value of L1 through L4is used to evaluate the lumbar spine. Based on the newes t WorldHealth Organization classifications, the hip is evaluated by utilizingthe lower of the T-value of the total hip or the T-value of thefemoral neck. FINDINGSIn this patient, the mean T-value of L 1 through L4 is -1.2 which is inthe range of osteopenia. Bone mineral density is measured at 5.4%greater than in 1998 and 2% greater than in 2004. Digital lateral viewfor evaluation of vertebral deform ity only demonstrates mildcompression of L1, T8, and possibly T7. The T- value of the left femoral neck is -1.5 which is in the range ofosteopenia. The T-value of the total left hip is -1.3 which is in the range ofosteopenia. Bone mineral density is measured at 0.2% less than [id number] and 0.1% more than in 2006. IMPRESSIONThere is osteopenia of the lumbar spine and left hip. Reported By: GISSELLE GONZALES M.D. :19 CBC, EMPLOYEE HCT 36.9 % (Abnormal) Range: 37-47 HGB 12.8 g/dL (Normal) Range: 12.0-16.0 MCH 29.6 pg (Normal) Range: 27.0-32.0 MCHC 34.7 g/dL (Normal) Range: 32-36 MCV 85.3 fL (Normal) Range: 81-99 MPV 8.3 fL (Normal) Range: 6.5-12.0 PLT 369 K/mm3 (Normal) Range: 150-450 RBC 4.33 {M/mm3} (Normal) Range: 4.2-5.4 RDW 13.9 % (Normal) Range: 11.6-14.6 WBC 6.2 K/mm3 (Normal) Range: 4.4-11.0 :19 EMP PROF A/G 1.1 {RATIO} (Normal) Range: 0.9-2.4 ALB 4.1 g/dL (Normal) Range: 3.4-5.0 ALK P 81 U/L (Normal) Range: 50-136 AST 29 U/L (Normal) Range: 15-37 BUN 12 mg/dL (Normal) Range: 7-18 BUN/CRE 15.0 {RATIO} (Normal) Range: 10-20 CA 9.1 mg/dL (Normal) Range: 8.5-10.1 CHOL 228 mg/dL (Abnormal) Comments: <200 mg/dL Desirable 200-240 mg/dL Borderline >240 mg/dL High Risk CREAT,SERUM 0.8 mg/dL (Normal) Range: 0.6-1.0 GLOB 3.8 g/dL (Normal) Range: 2.7-4.2 Comments: Please Note Reference Interval Change GLU 93 mg/dL (Normal) Range: 70-110 HDL 48 mg/dL (Normal) Comments: Reference Range HDL <40 mg/dL Low HDL Cholesterol HDL >or= 60 mg/dL High HDL Cholesterol LDH 180 U/L (Normal) Range: 100-190 LDL 159 mg/dL (Abnormal) Range: 0-130 PHOS 3.9 mg/dL (Normal) Range: 2.5-4.9 T BILI 0.33 mg/dL (Normal) Range: 0.00-1.00 T PROT 7.9 g/dL (Normal) Range: 6.4-8.2 TRIG 106 mg/dL (Normal) Comments: Serum Triglycerides Reference Interval Normal <150 mg/dL Borderline high 150 - 199 mg/dL High 200 - 499 mg/dL Very High > or = 500 mg/dL URIC 4.5 mg/dL (Normal) Range: 2.6-6.0 VLDL 21 mg/dL (Normal) Range: 5-40 :19 EMP URINALYSIS BILIRUBIN URINE SeeNote (Normal) Comments: Result: NEGATIVE CLARITY CLEAR (Normal) COLOR YELLOW (Normal) GLUCOSE, UR SeeNote (Normal) Comments: Result: NEGATIVE KETONE UR SeeNote mg/dL (Normal) Comments: Result: NEGATIVE LEUK ESTERASE SeeNote (Normal) Comments: Result: NEGATIVE NITRITE UR SeeNote (Normal) Comments: Result: NEGATIVE OCCULT BLOOD-UR 1+ (Abnormal) pH UR 6.0 (Normal) Range: 5.0-8.0 PROT DIPSTX SeeNote (Normal) Comments: Result: NEGATIVE SP.GR. DIPSTX 1.010 (Normal) Range: 1.002-1.030 UROBILI 0.2 EU/dl (Normal) Range: 0.2 - 1.0 :00 METAN,U24 4234 Comments: DATE STARTED 05/12/07, TIME STARTED 0600DATE ENDED 05/13/07, TIME ENDED 0600 METANEPH,U24 64 {ug/24_hr} (Normal) Range: 35-460 METANEPHRINE,UR 41 ug/L (Normal) NORMETANEPH,U24 301 {ug/24_hr} (Normal) Range: 110-1050 NORMETANEPH,UR 194 ug/L (Normal) 59-Luf-80499:00 VMA,U24 4143 Comments: DATE STARTED 05/12/07, TIME STARTED 0600DATE ENDED 05/13/07, TIME ENDED 06 VMA,24UR 5.3 {mg/24_hr} (Normal) Range: 1.8-6.7 Comments: Performed At: [address] [id number] VMA,UR 3.4 mg/L (Normal) :16 ALDOST,U24 4291 Comments: 24 H URINE TV = 2580 ML ALDOSTERONE,U24 3 {ug/24_hr} (Normal) Range: 2-21 Comments: 1 mo. 1 - 11 1- 12 mos. 1 - 22 1- 16 yrs. 2 - 16 Adult Ranges Normal diet 2 - 21 Low salt 17 - 44 High salt 0 - 14Performed At: [address] [id number] ALDOSTERONE,UR 1 ug/L (Normal) 33-Bwd-621849:17 BRAIN/HEAD W/WO CONTRAST Radiology Report See Note (Normal) Comments: Exam Number: [id number] CT SCAN OF BRAIN HISTORYHeadache. Scans were obtained at 2.5-mm intervals through the posterior fossaand at 5-mm intervals throughout the remainder of the brain. Thereare no foca l areas of abnormal attenuation seen within the brainparenchyma. Sulci and ventricles are within normal limits. There isno shift of midline, mass effect, or extra-axial collection. Noevidence of an a cute intracranial bleed is identified. There is minimal increased density in the ethmoids suspicious forearly ethmoid sinusitis. IMPRESSION1. The appearance of the brain is within normal limits.2. The re is apparent mild right ethmoid sinusitis. Reported By: GISSELLE GONZALES M.D. 00-Dhw-82390:51 CBC With Differential/Platelet Comments: PERFORMED BY: [facility] [id number] Baso (Absolute) 0.1 {x10E3/uL} (Normal) Range: 0.0-0.2 Basos 1 % (Normal) Range: 0-3 Eos 7 % (Normal) Range: 0-7 Eos (Absolute) 0.5 {x10E3/uL} (Abnormal) Range: 0.0-0.4 Hematocrit 38.2 % (Normal) Range: 34.0-44.0 Hemoglobin 12.8 g/dL (Normal) Range: 11.5-15.0 Lymphs 34 % (Normal) Range: 14-46 Lymphs (Absolute) 2.2 {x10E3/uL} (Normal) Range: 0.7-4.5 MCH 30.2 pg (Normal) Range: 27.0-34.0 MCHC 33.4 g/dL (Normal) Range: 32.0-36.0 MCV 90 fL (Normal) Range: 80-98 Monocytes 8 % (Normal) Range: 4-13 Monocytes(Absolute) 0.5 {x10E3/uL} (Normal) Range: 0.1-1.0 Neutrophils 50 % (Normal) Range: 40-74 Neutrophils (Absolute) 3.3 {x10E3/uL} (Normal) Range: 1.8-7.8 Platelets 305 {x10E3/uL} (Normal) Range: 140-415 RBC 4.22 {x10E6/uL} (Normal) Range: 3.80-5.10 RDW 13.3 % (Normal) Range: 11.7-15.0 WBC 6.6 {x10E3/uL} (Normal) Range: 4.0-10.5 :51 Comp. Metabolic Panel (14) Comments: PERFORMED BY: [facility] [id number] A/G Ratio 1.5 (Normal) Range: 1.1-2.5 Albumin, Serum 4.3 g/dL (Normal) Range: 3.6-4.8 Alkaline Phosphatase, S 74 [iU]/L (Normal) Range: 25-165 ALT (SGPT) 12 [iU]/L (Normal) Range: 0-40 AST (SGOT) 22 [iU]/L (Normal) Range: 0-40 Bilirubin, Total 0.2 mg/dL (Normal) Range: 0.1-1.2 BUN 12 mg/dL (Normal) Range: 5-26 BUN/Creatinine Ratio 15 (Normal) Range: 8-27 Calcium, Serum 10.1 mg/dL Range: 8.5-10.6 (Normal) Carbon Dioxide, Total 28 mmol/L (Normal) Range: 20-32 Chloride, Serum 101 mmol/L Range: 96-109 (Normal) Creatinine, Serum 0.8 mg/dL (Normal) Range: 0.5-1.5 Globulin, Total 2.8 g/dL (Normal) Range: 1.5-4.5 Glucose, Serum 90 mg/dL (Normal) Range: 65-99 Potassium, Serum 5.3 mmol/L Range: 3.5-5.5 (Normal) Protein, Total, Serum 7.1 g/dL (Normal) Range: 6.0-8.5 Sodium, Serum 140 mmol/L Range: 135-148 (Normal) Sedimentation 4 mm/h (Normal) Comments: [facility]FORMED BY: [facility] [id number] :51 Rate-Westergren Range: 0-30 [id number]-441112:29 CULTURE, URINE URINE CULTURE See Note {CFU/mL} (Normal) Comments: COLONY COUNT >100,000 ORGANISM 1: ENTEROCOCCUS FAECALIS ENTEROCOCCUS FAECALIS: REACTION CIPROFLOXACIN GP $$$ <=0.5 S LEVOFLOXAC IN $$ <=1 S NITROFURANTOIN $ <=32 S PENICILLIN G (ENTEROCOCCUS) $$ 2 S TETRACYCLINE $$ <=1 S VANCOMYCIN $$ <=0.5 S 3-Szh-[id number]:29 ROUTINE UA BILIRUBIN URINE SeeNote (Normal) Comments: Result: NEGATIVE CLARITY CLOUDY (Normal) COLOR YELLOW (Normal) GLUCOSE, UR SeeNote (Normal) Comments: Result: NEGATIVE KETONE UR SeeNote mg/dL (Normal) Comments: Result: NEGATIVE LEUK ESTERASE 1+ (Abnormal) NITRITE UR SeeNote (Normal) Comments: Result: NEGATIVE OCCULT BLOOD-UR SeeNote (Normal) Comments: Result: NEGATIVE pH UR 6.5 (Normal) Range: 5.0-8.0 PROT DIPSTX SeeNote (Normal) Comments: Result: NEGATIVE SP.GR. DIPSTX 1.020 (Normal) Range: 1.002-1.030 UROBILI 0.2 EU/dl (Normal) Range: 0.2 - 1.0 10-Apr-20068:30 COLON BX P-COLBX (Normal) Comments: OPERATION Colonoscopy w/ bx PRE-OPERATIVE DIAGNOSIS Diarrhea TISSUE SUBMITTED A- Terminal ileum bx, r/o Crohn's, B- Left colon bx, r/o microscopic colitis MICROSCOPIC DIAGNOSIS A. Terminal ileum, b iopsy: Fragments of small intestinal mucosa, no pathologic diagnosis. B. Left colon, biopsy: Fragments of colonic mucosa, no pathologic diagnosis. SJ:chente 04/11/06 GROSS DESCRIPTION A - Received in formalin labeled with patient name and number and designated terminal ileum, rule out Crohn's are multiple irregular fragments of light tucker soft tissue that in aggregate measure 0.8 x 0.2 x 0.1 c m. The specimen is totally submitted in one cassette. B - Received in formalin labeled with patient name and number and designated left colon, rule out microscopic colitis are multiple irregular fra gments of light tucker soft tissue that in aggregate measure 0.5 x 0.5 x 0.1 cm. The specimen is totally submitted in one cassette. / SJ:chente 04/10/06 TC:4 REPORT SIGNED: YELENA HERNANDEZ 04/11/06 Plan of Care Name Dates Details Instructions Essential hypertension : Follow up in 4 months Indication: Essential hypertension Anxiety associated with depression : Follow up in 2 weeks Indication: Anxiety associated with depression Anxiety associated with depression : Continue Current Prescription(s) Indication: Anxiety associated with depression Soft tissue mass : Reviewed Diagnostic Tests Indication: Soft tissue mass Soft tissue mass : Reviewed Rn Surgical Pcu Letter Indication: Soft tissue mass Gastroesophageal reflux disease without esophagitis : GERD Education Indication: Gastroesophageal reflux disease without esophagitis Hypercholesterolemia : Cholesterol mgmt Indication: Hypercholesterolemia Essential hypertension : HTN/CAD Red Flags Indication: Essential hypertension BMI 23.0-23.9, adult : Eprescribed prescriptions (G8553) Indication: BMI 23.0-23.9, adult Non-smoker : Eprescribed prescriptions (G8553) Indication: Non-smoker Non-smoker : Follow up if no improvement or if symptoms worsen Indication: Non-smoker Constipation : Reviewed Diagnostic Tests Indication: Constipation Abdominal pain : Reviewed Diagnostic Tests Indication: Abdominal pain UTI (urinary tract infection) : Reviewed Lab Indication: UTI (urinary tract infection) Abdominal pain : Eprescribed prescriptions (G8553) Indication: Abdominal pain Non-smoker : Follow up if no improvement or if symptoms worsen Indication: Non-smoker Non-smoker : Eprescribed prescriptions (G8553) Indication: Non-smoker Essential hypertension : Follow up in 4 months Indication: Essential hypertension Gastroesophageal reflux disease without esophagitis : GERD Education Indication: Gastroesophageal reflux disease without esophagitis Hypercholesterolemia : Cholesterol mgmt Indication: Hypercholesterolemia Essential hypertension : HTN/CAD Red Flags Indication: Essential hypertension Essential hypertension : Eprescribed prescriptions (G8553) Indication: Essential hypertension Annual Medicare Phyiscal WITHOUT abnormal findings (Renamed from Encounter for general adult medical examination without abnormal findings) : Eprescribed prescriptions (G8553) Indication: Annual Medicare Phyiscal WITHOUT abnormal findings (Renamed from Encounter for general adult medical examination without abnormal findings) UTI (urinary tract infection) : Clean-Catch Urine Sample (Women) *: uti Indication: UTI (urinary tract infection) Hypercholesterolemia : Eprescribed prescriptions (G8553) Indication: Hypercholesterolemia Abdominal pain, acute, generalized : Eprescribed prescriptions (G8553) Indication: Abdominal pain, acute, generalized Poison casandra : Poison Casandra Education Indication: Poison casandra Poison casandra : Eprescribed prescriptions (G8553) Indication: Poison casandra NEED FOR PROPHYLACTIC VACCINATION AND INOCULATION AGAINST INFLUENZA (V04.81) (Renamed from NEED FOR PROPHYLACTIC VACCINATION AND INOCULATION AGAINST INFLUENZA) : Flu (Influenza) *: flu Indication: NEED FOR PROPHYLACTIC VACCINATION AND INOCULATION AGAINST INFLUENZA (V04.81) (Renamed from NEED FOR PROPHYLACTIC VACCINATION AND INOCULATION AGAINST INFLUENZA) NEED FOR PROPHYLACTIC VACCINATION AND INOCULATION AGAINST INFLUENZA (V04.81) (Renamed from NEED FOR PROPHYLACTIC VACCINATION AND INOCULATION AGAINST INFLUENZA) : Flu (Influenza) *: flu shot Indication: NEED FOR PROPHYLACTIC VACCINATION AND INOCULATION AGAINST INFLUENZA (V04.81) (Renamed from NEED FOR PROPHYLACTIC VACCINATION AND INOCULATION AGAINST INFLUENZA) Essential hypertension : Blood Pressure: hypertension Indication: Essential hypertension Essential hypertension : Eprescribed prescriptions (G8553) Indication: Essential hypertension Anxiety associated with depression : Depression: Brief Version *: depression Indication: Anxiety associated with depression Anxiety associated with depression : Anxiety: anxiety Indication: Anxiety associated with depression Dysuria : Urinary Tract Infection in Women *: bladder Indication: Dysuria Hypercholesterolemia : High Cholesterol (Hypercholesterolemia) *: blood Indication: Hypercholesterolemia Rib contusion : Follow up if no improvement or if symptoms worsen Indication: Rib contusion Hypercholesterolemia : Keeping Healthy: Taking Care of Your Cholesterol: Brief Version *: nutrition Indication: Hypercholesterolemia Essential hypertension : Blood Pressure: high blood pressure Indication: Essential hypertension Need for prophylactic vaccination and inoculation against influenza : Flu Shots (Influenza Vaccine): flu shot Indication: Need for prophylactic vaccination and inoculation against influenza Bronchitis : *URI Treatment Indication: Bronchitis Bronchitis : *URI Symptoms Indication: Bronchitis Bronchitis : *Antibiotic Usage Education - Female Indication: Bronchitis Pain in joint involving ankle and foot, unspecified laterality : Follow up in 1 week Indication: Pain in joint involving ankle and foot, unspecified laterality Eczema (Renamed from Dermatitis, eczematoid) : FOLLOW UP IN 2 WEEKS Indication: Eczema (Renamed from Dermatitis, eczematoid) Hypercholesterolemia : Diet and Exercise Indication: Hypercholesterolemia EASY BRUISABILITY OF SKIN : FOLLOW UP IN 2 MONTHS Indication: EASY BRUISABILITY OF SKIN Planned Observations TSH ([id number])Indication: Hypercholesterolemia On: :41 Request URINALYSIS, W/ MICRO ([id number])Indication: Essential hypertension On: Request MICROALBUMIN: CREATININE RATIO ([id number]) AND ([id number])Indication: Essential hypertension On: :41 Request METABOLIC PANEL, COMPREHENSIVE ([id number])Indication: Essential hypertension On: Request LIPOPROTEIN, BLD, BY NMR ([id number])Indication: Hypercholesterolemia On: Request CBC W/AUTO DIFF WBC ([id number])Indication: Essential hypertension On: :41 Request TSH ([id number])Indication: Hypercholesterolemia On: :51 Request URINALYSIS, W/ MICRO ([id number])Indication: Essential hypertension On: :51 Request MICROALBUMIN: CREATININE RATIO ([id number]) AND ([id number])Indication: Essential hypertension On: :51 Request METABOLIC PANEL, COMPREHENSIVE ([id number])Indication: Essential hypertension On: :51 Request LIPID PANEL ([id number])Indication: Essential hypertension On: :51 Request CBC W/AUTO DIFF WBC ([id number])Indication: Essential hypertension On: :51 Request Metabolic Panel, Basic (04963)Indication: Essential hypertension On: 16-Req-641618:32 Request Comments: 2 weeks Vitamin D Hydroxy ([id number])Indication: Osteopenia On: :23 Request URINALYSIS, W/ MICRO ([id number])Indication: Essential hypertension On: :23 Request CBC W/AUTO DIFF WBC ([id number])Indication: Essential hypertension On: :23 Request METABOLIC PANEL, COMPREHENSIVE ([id number])Indication: Essential hypertension On: :23 Request LIPID PANEL ([id number])Indication: Hypercholesterolemia On: :22 Request SED RATE ERYTHROCYTE ([id number])Indication: Abdominal pain, acute, generalized On: :47 Request C-REACTIVE PROTEIN ([id number])Indication: Abdominal pain, acute, generalized On: :47 Request CBC with auto diff ([id number])Indication: Abdominal pain, acute, generalized On: :46 Request LIPID PANEL ([id number])Indication: Hypercholesterolemia On: :27 Request METABOLIC PANEL, COMPREHENSIVE ([id number])Indication: Essential hypertension On: 5-Zye-659565:26 Request VARICELLA-ZOSTER ANTBODY ([id number])Indication: Hypercholesterolemia On: 95-Nfk-897167:58 Request TSH ([id number])Indication: Anxiety associated with depression On: 27-Msr-494423:12 Request LIPID PANEL ([id number])Indication: Hypercholesterolemia On: 31-Pmv-059398:12 Request CBC W/AUTO DIFF WBC ([id number])Indication: Essential hypertension On: 64-Iym-496255:12 Request METABOLIC PANEL, COMPREHENSIVE ([id number])Indication: Essential hypertension On: 57-Pff-094948:12 Request VARICELLA-ZOSTER ANTBODY ([id number])Indication: screen On: 27-Lzc-244101:59 Request CBC WITH MANUAL DIFF ([id number])Indication: Essential hypertension On: 11-Nvg-889990:59 Request LIPID PANEL ([id number])Indication: Hypercholesterolemia On: 19-Sid-892666:58 Request METABOLIC PANEL, COMPREHENSIVE ([id number])Indication: Essential hypertension On: 20-Dhp-659512:58 Request Vitamin D Hydroxy ([id number])Indication: Osteopenia On: :33 Request METABOLIC PANEL, COMPREHENSIVE ([id number])Indication: Essential hypertension On: :33 Request LIPID PANEL ([id number])Indication: Hypercholesterolemia On: :33 Request METABOLIC PANEL, COMPREHENSIVE ([id number])Indication: Essential hypertension On: 19-Ghk-91059:57 Request LIPID PANEL ([id number])Indication: Hypercholesterolemia On: 18-Has-60932:56 Request Vitamin D Hydroxy ([id number])Indication: Anxiety associated with depression On: :51 Request CBC WITH MANUAL DIFF ([id number])Indication: Essential hypertension On: :51 Request METABOLIC PANEL, COMPREHENSIVE ([id number])Indication: Essential hypertension On: :51 Request TSH ([id number])Indication: Anxiety associated with depression On: :51 Request LIPID PANEL ([id number])Indication: Hypercholesterolemia On: :50 Request CBC WITH MANUAL DIFF ([id number])Indication: Essential hypertension On: :30 Request METABOLIC PANEL, COMPREHENSIVE ([id number])Indication: Essential hypertension On: : Request LIPID PANEL ([id number])Indication: Hypercholesterolemia On: : Request URINALYSIS, W/ MICRO ([id number])Indication: Essential hypertension On: :08 Request CBC WITH MANUAL DIFF ([id number])Indication: Essential hypertension On: :08 Request METABOLIC PANEL, COMPREHENSIVE ([id number])Indication: Essential hypertension On: 20-Nng-078138:06 Request LIPID PANEL ([id number])Indication: Hypercholesterolemia On: :06 Request LIPID PANEL ([id number])Indication: Hypercholesterolemia On: :28 Request CBC WITH MANUAL DIFF ([id number])Indication: Essential hypertension On: :28 Request METABOLIC PANEL, COMPREHENSIVE ([id number])Indication: Essential hypertension On: :28 Request METABOLIC PANEL, COMPREHENSIVE ([id number])Indication: Essential hypertension On: :48 Request Vitamin D Hydroxy (24814)Indication: Depression On: :48 Request LIPID PANEL ([id number])Indication: Hypercholesterolemia On: :47 Request CBC WITH MANUAL DIFF ([id number])Indication: Other chest pain On: :19 Request METABOLIC PANEL, COMPREHENSIVE ([id number])Indication: Other chest pain On: :18 Request ASSAY, TROPONIN, QUANTITATIVE (aka Troponin I) ([id number])Indication: Other chest pain On: 93-Olt-498661:18 Request Comments: stat CALCIFEDIOL ([id number])Indication: Eczema (Renamed from Dermatitis, eczematoid) On: 04-Mgv-129093:34 Request OVA & PARASITE DIR SMEAR ([id number])Indication: Diarrhea (Renamed from D (diarrhea)) On: 49-Hzn-488106:11 Request LEUKOCYTE COUNT, FECAL ([id number])Indication: Diarrhea (Renamed from D (diarrhea)) On: 24-Qst-788461:10 Request C.Difficile, Stool ([id number])Indication: Diarrhea (Renamed from D (diarrhea)) On: 75-Dvj-167279:10 Request ALEX CULTURE-STOOL ([id number])Indication: Diarrhea (Renamed from D (diarrhea)) On: 74-Dvn-922459:10 Request SED RATE ERYTHROCYTE ([id number])Indication: Abdominal pain, acute, left lower quadrant On: 12-Gvv-991573:10 Request C-REACTIVE PROTEIN ([id number])Indication: Abdominal pain, acute, left lower quadrant On: 24-Zkj-634146:10 Request URINALYSIS, W/ MICRO ([id number])Indication: Abdominal pain, acute, left lower quadrant On: 46-Zqe-169427:10 Request METABOLIC PANEL, COMPREHENSIVE ([id number])Indication: Abdominal pain, acute, left lower quadrant On: 02-Zpx-231296:10 Request CBC WITH MANUAL DIFF ([id number])Indication: Abdominal pain, acute, left lower quadrant On: 88-Vlz-638861:10 Request METABOLIC PANEL, COMPREHENSIVE ([id number])Indication: Essential hypertension On: 47-Nsb-427408:47 Request HEPATIC FUNCTION PANEL ([id number])Indication: Hypercholesterolemia On: 29-Saz-669885:47 Request LIPID PANEL ([id number])Indication: Hypercholesterolemia On: 07-Blh-107522:47 Request Vitamin D Hydroxy ([id number])Indication: Osteopenia On: 68-Ohi-794254:46 Request LIPID PANEL ([id number])Indication: Hypercholesterolemia On: 10-Mar-20098:38 Request HEPATIC FUNCTION PANEL ([id number])Indication: Hypercholesterolemia On: :38 Request Metabolic Panel, Basic ([id number])Indication: DISORDERS, ORGANIC, SLEEP RELATED LEG CRAMPS On: 01-Qkz-253819:17 Request URINALYSIS W/O MICRO ([id number])Indication: Essential hypertension On: :48 Request TSH ([id number])Indication: Essential hypertension On: 0-Umo-285533:48 Request METABOLIC PANEL, COMPREHENSIVE ([id number])Indication: Essential hypertension On: :48 Request CBC WITH MANUAL DIFF ([id number])Indication: Essential hypertension On: :48 Request LIPID PANEL (31041)Indication: Hypercholesterolemia On: :48 Request CBC WITH MANUAL DIFF ([id number])Indication: Anemia, unspecified On: :51 Request LIPID PANEL ([id number])Indication: Hypercholesterolemia On: :31 Request HEPATIC FUNCTION PANEL ([id number])Indication: Hypercholesterolemia On: :41 Request LIPID PANEL ([id number])Indication: Hypercholesterolemia On: :41 Request SED RATE ERYTHROCYTE ([id number])Indication: Headache (Renamed from Cephalalgia) On: :40 Request METABOLIC PANEL, COMPREHENSIVE ([id number])Indication: Headache (Renamed from Cephalalgia) On: :39 Request CBC WITH MANUAL DIFF ([id number])Indication: Headache (Renamed from Cephalalgia) On: :39 Request CBC WITH MANUAL DIFF ([id number])Indication: EASY BRUISABILITY OF SKIN On: :59 Request PTT (ACTIVATED PARTIAL THROMBOPLASTIN TIME) ([id number])Indication: EASY BRUISABILITY OF SKIN On: :59 Request PT (PROTHROMBIN TIME) ([id number])Indication: EASY BRUISABILITY OF SKIN On: :59 Request HEPATIC FUNCTION PANEL ([id number])Indication: Hypercholesterolemia On: :54 Request LIPID PANEL ([id number])Indication: Hypercholesterolemia On: :54 Request Planned Encounters Medical; 4 Month FU - On: 16-Aug-2018 10:00 [facility] Catrina Perry DO, DO, Kathleen Planned Procedures CT OF NECK WITHOUT THEN WITH On: 09-Apr-2018 Intent INTRAVENOUS CONTRAST ([id number])By: Comments: include thyroid Acacia Whaley CNP Ultrasound - ThyroidBy: Jovana OJEDA, On: 09-Apr-2018 Intent Acacia Wang Comments: attetion soft tissue rt side of neck Flu Vaccine (Quadrivalent) 42106Kk: On: 13-Mar-2018 Intent Ladi Max Comments: Lot #[id number]-L dltd, IMDose prefilled syringegiven by:SABINA Mclain reviewed and ABN signed FLAT PLATE ([id number])By: Jovana OJEDA, On: 19-Dec-2017 Intent Lroi ELECTROCARDIOGRAM, COMPLETE (ECG) On: 12-Dec-2017 Intent ([id number])By: Catrina Perry DO Comments: nsr no acute chg Catrina Perry DO Bone Density StudyBy: Tessie Greene DO On: 10-May-2015 Intent A Comments: screening ADMINISTRATION OF INFLUENZA VIRUS On: 05-Feb-2015 Intent VACCINE (G0008)By: Tessie Greene DO Flu Vaccine (Quadrivalent) 33913Cf: On: 05-Feb-2015 Intent Tessie Greene DO Comments: Lot:[id number]:09/01/15Dose:0.5mLRoute:IMSite:L DltdGiven By:MARTY signed MAMMOGRAM, SCREENING, BOTH BREAST On: 05-Feb-2015 Intent (96790)By: Tessie Greene DO Comments: nov DEXA SCAN AXIAL SKELETON ([id number])By: On: 05-Feb-2015 Intent Tessie Greene DO Comments: nov Solu -Medrol Injection, 125 mg On: 09-Dec-2014 Intent ([id number])By: Jovana OJEDA Acacia Wang Comments: lot:[id number]:route:IMdose:125MGsite: R glutGiven by: ROSANGELA Gamble MAMMOGRAM, SCREENING, BOTH BREAST On: 13-Mar-2014 Intent ([id number])By: Tessie Greene DO ADMINISTRATION OF INFLUENZA VIRUS On: 13-Mar-2014 Intent VACCINE (G0008)By: Tessie Greene DO FLU VAC, SPLIT, >3 YEARS, INTRAMUSC On: 13-Mar-2014 Intent ([id number])By: Tessie Greene DO Comments: lot: [id number]: 12-01-13site/route: L del/IMamt: 0.5mLVIS signed when applicableROSANGELA Villa Eprescribed prescriptions (G8553)By: On: 16-Sep-2013 Intent Tessie Greene DO Eprescribed prescriptions (G8553)By: On: 18-Mar-2013 Intent Libby Herndon FLU VAC, SPLIT, >3 YEARS, INTRAMUSC On: 20-Feb-2013 Intent ([id number])By: Fallon Carranza Comments: Lot:[id number]:Dose:0.5mLRoute:IMSite:L DltdGiven By:AGAVIS signed IMMUNIZ ADMNIN, 1 VAC, SNGL/COMBO On: 20-Feb-2013 Intent (20176)By: Fallon Carranza MAMMOGRAM, SCREENING, BOTH BREASTS On: 31-Dec-2012 Intent ([id number])By: Tessie Greene DO Eprescribed prescriptions (G8553)By: On: 11-Nov-2012 Intent Libby Herndon Eprescribed prescriptions (G8553)By: On: 23-Sep-2012 Intent Libby Herndon EKG ([id number])By: Libby Herndon On: 21-Aug-2012 Intent Comments: ekg showed normal sinus rhythym, normal axis, no acute st/t wave changes Eprescribed prescriptions (G8553)By: On: 25-Jun-2012 Intent Tanya Bermudez LPN PNEUM VAC ADLT/IMUMNOSPR, SBC/INTRM On: 03-May-2012 Intent (73210)By: Tessie Greene DO Comments: Lot:[id number]:08-06-Dose:0.5mLRoute:IMSite:L armGiven By:AGA ADMINISTRATION OF PNEUMOCOCCAL On: 03-May-2012 Intent VACCINE (G0009)By: Tessie Greene DO Eprescribed prescriptions (G8553)By: On: 03-May-2012 Intent Libby Herndon Gljhpjetl-Hdm-Fauvy ([id number])By: Ciesa On: 08-Apr-2012 Intent Acacia OJEDA DXA, BONE DENSITY, AXIAL SKELETON On: 30-Jan-2012 Intent ([id number])By: Tessie Greene DO MAMMOGRAM, SCREENING, BOTH BREASTS On: 30-Jan-2012 Intent ([id number])By: Tessie Greene DO IMMUNIZ ADMNIN, 1 VAC, SNGL/COMBO On: 30-Jan-2012 Intent ([id number])By: Megan Phillips LPN Comments: Lot/Exp: [id number], 11/2011Given in L Dltd, IMPrefilled SyringeBy ROEL Guzman FLU VAC, SPLIT, >3 YEARS, INTRAMUSC On: 30-Jan-2012 Intent (71286)By: Megan Phillips LPN Breast Screening - BilateralBy: Fast On: 30-Jan-2012 Intent DO, Tessie A Eprescribed prescriptions (G8553)By: On: 11-Jul-2011 Intent Acacia Whaley CNP Radiology - Toe(s) - LeftBy: Fast On: 30-May-2011 Intent DO Tessie A Nuclear Medicine - HIDA w/CPKBy: On: 05-May-2011 Intent Fast DO, Tessie A Ultrasound - GallbladderBy: Fast DO, On: 01-May-2011 Intent Tessie A Comments: please do tomorrow Cartoid DopplerBy: Fast DO, Tessie A On: 01-May-2011 Intent EKG (57752)By: Libby Herndon On: 01-May-2011 Intent Comments: ekg showed normal sinus rhythym, normal axis, no acute st/t wave changes poor r wave progression unchanged TDAP VACCINE >7 IM ([id number])By: On: 01-May-2011 Intent Libby Herndon Comments: work FLU VAC, SPLIT, >3 YEARS, INTRAMUSC On: 01-May-2011 Intent (68405)By: Libby Herndon Comments: work DXA, BONE DENSITY, AXIAL SKELETON On: 09-Feb-2011 Intent ([id number])By: Monserrat Granado LPN MAMMOGRAM, SCREENING, BOTH BREASTS On: 09-Feb-2011 Intent ([id number])By: Monserrat Granado LPN Radiology - Ankle - LeftBy: Ciesa On: 14-Dec-2010 Intent Acacia OJEDA Comments: call wet read to Acacia Whaley Eprescribed prescriptions (G8553)By: On: 15-Nov-2010 Intent Fast DO, Tessie A CT - Abdomen & PelvisBy: Fast DO, On: 26-Oct-2009 Intent Tessie A Comments: tomorrow call wet read EKG (60145)By: Libby Herndon On: 30-Aug-2009 Intent Comments: do at hospital Venous Doppler - RightBy: Jc BROUSSARD, On: 03-Feb-2009 Intent Tessie A Comments: tomorrow- call wet read Radiology - Lumbar SpineBy: Jc BROUSSARD, On: 03-Feb-2009 Intent Tessie Soler Radiology - Knee - Right - Weight On: 03-Feb-2009 Intent BearingBy: Tessie Greene DO Doppler Ultrasound OtherBy: Vicky On: 18-Sep-2008 Intent Catrina BROUSSARD DO, Kathleen Comments: lower extrem Stress EchocardiogramBy: Jc BROUSSARD, On: 07-Jun-2007 Intent Tessie Soler EKG ([id number])By: Tessie Greene DO On: 28-Apr-2007 Intent Comments: ordered to be done at the hospital CT - Brain/HeadBy: Tessie Greene DO On: 20-Mar-2007 Intent Comments: with and without contrast- please do stat and call wet read IMMUNIZ ADMNIN, 1 VAC, SNGL/COMBO On: 04-Apr-2006 Intent (51156)By: Libby Herndon PNEUM VAC ADLT/IMUMNOSPR, SBC/INTRM On: 04-Apr-2006 Intent (65807)By: Libby Herndon Comments: Lot #:Expiration date:Amount given:Route: IMSite given:LEFT DELTOIDGiven by: EDILMA Weinberg IMMUNIZ ADMNIN, 1 VAC, SNGL/COMBO On: 04-Apr-2006 Intent (92047)By: Tessie Greene DO PNEUM VAC ADLT/IMUMNOSPR, SBC/INTRM On: 04-Apr-2006 Intent ([id number])By: Tessie Greene DO Planned Medications INJECTION, METHYLPREDNISOLONE SODIUM SUCCINATE, UP TO 125 MG Ordered: 09-Dec-2014 Pending Acacia Whaley CNP Instructions Name Dates Details BMI 23.0-23.9, adult : How to access health information online Indication: BMI 23.0-23.9, adult BMI 23.0-23.9, adult : How to access health information online - Detail Indication: BMI 23.0-23.9, adult BMI 23.0-23.9, adult : Patient Instructions Indication: BMI 23.0-23.9, adult Non-smoker : How to access health information online Indication: Non-smoker Non-smoker : How to access health information online - Detail Indication: Non-smoker Non-smoker : Patient Instructions Indication: Non-smoker Abdominal pain : How to access health information online Indication: Abdominal pain Abdominal pain : How to access health information online - Detail Indication: Abdominal pain Abdominal pain : Patient Instructions Indication: Abdominal pain Non-smoker : How to access health information online Indication: Non-smoker Non-smoker : How to access health information online - Detail Indication: Non-smoker Non-smoker : Patient Instructions Indication: Non-smoker BMI 22.0-22.9, adult : How to access health information online Indication: BMI 22.0-22.9, adult BMI 22.0-22.9, adult : How to access health information online - Detail Indication: BMI 22.0-22.9, adult BMI 22.0-22.9, adult : Patient Instructions Indication: BMI 22.0-22.9, adult Essential hypertension : How to access health information online Indication: Essential hypertension Essential hypertension : How to access health information online - Detail Indication: Essential hypertension Essential hypertension : Patient Instructions Indication: Essential hypertension Annual Medicare Phyiscal WITHOUT abnormal findings (Renamed from Encounter for general adult medical examination without abnormal findings) : How to access health information online Indication: Annual Medicare Phyiscal WITHOUT abnormal findings (Renamed from Encounter for general adult medical examination without abnormal findings) Annual Medicare Phyiscal WITHOUT abnormal findings (Renamed from Encounter for general adult medical examination without abnormal findings) : How to access health information online - Detail Indication: Annual Medicare Phyiscal WITHOUT abnormal findings (Renamed from Encounter for general adult medical examination without abnormal findings) Annual Medicare Phyiscal WITHOUT abnormal findings (Renamed from Encounter for general adult medical examination without abnormal findings) : Patient Instructions Indication: Annual Medicare Phyiscal WITHOUT abnormal findings (Renamed from Encounter for general adult medical examination without abnormal findings) UTI (urinary tract infection) : Patient Instructions Indication: UTI (urinary tract infection) Hypercholesterolemia : How to access health information online Indication: Hypercholesterolemia Hypercholesterolemia : How to access health information online - Detail Indication: Hypercholesterolemia Hypercholesterolemia : Patient Instructions Indication: Hypercholesterolemia Abdominal pain, acute, generalized : How to access health information online Indication: Abdominal pain, acute, generalized Abdominal pain, acute, generalized : How to access health information online - Detail Indication: Abdominal pain, acute, generalized Abdominal pain, acute, generalized : Patient Instructions Indication: Abdominal pain, acute, generalized Poison casandra : How to access health information online Indication: Poison casandra Poison casandra : How to access health information online - Detail Indication: Poison casandra Poison casandra : Patient Instructions Indication: Poison casandra Hypercholesterolemia : Patient Instructions Indication: Hypercholesterolemia Encounter for Medicare annual wellness exam : Patient Instructions Indication: Encounter for Medicare annual wellness exam Essential hypertension : How to access health information online Indication: Essential hypertension Essential hypertension : How to access health information online - Detail Indication: Essential hypertension Essential hypertension : Patient Instructions Indication: Essential hypertension Hypercholesterolemia : Patient Instructions Indication: Hypercholesterolemia Hypercholesterolemia : Patient Instructions Indication: Hypercholesterolemia Gastroesophageal reflux disease without esophagitis : Patient Instructions Indication: Gastroesophageal reflux disease without esophagitis Hypercholesterolemia : Patient Instructions Indication: Hypercholesterolemia Anxiety associated with depression : Patient Instructions Indication: Anxiety associated with depression Anxiety associated with depression : Patient Instructions Indication: Anxiety associated with depression Essential hypertension : Patient Instructions Indication: Essential hypertension Anxiety associated with depression : Patient Instructions Indication: Anxiety associated with depression Acute cystitis : Patient Instructions Indication: Acute cystitis Hypercholesterolemia : Patient Instructions Indication: Hypercholesterolemia Essential hypertension : Patient Instructions Indication: Essential hypertension Encounters Phone Encounter On: 09-May-2018 10:16 Encounter Diagnosis: Essential hypertension End: 09-May-2018 10:23 [facility] Office Visit On: 18-Apr-2018 10:29 Encounter Reason: Follow up for chronic medical issues - The patient feels well with minor complaints (R foot is a little swollen and kind of black and blue with pain), has good energy level and is sleeping well. Patient End: 18-Apr-2018 11:55 has been compliant with instructions. Current medication use: no side effects. Patient sleeps 7 hours per night. Impact of disease: no overall impact. Nutrition: balanced diet and supplemental vitamins., [ADDITIONAL REASON] Foot Problem - This condition occurred without any known injury. The injury involved the right foot. Symptoms include foot swelling. Symptoms are located in the right foot. Encounter Diagnosis: Non-smoker, BMI 23.0-23.9, adult, Gastroesophageal reflux disease without esophagitis, Essential hypertension, Hypercholesterolemia, Osteoporosis, disuse, Soft tissue mass, Foot pain, right, Anxiety associated with depression [facility] Annotation/Addendum On: 12-Apr-2018 8:45 Encounter Diagnosis: Palpable mass of neck End: 12-Apr-2018 9:28 [facility] Annotation/Addendum On: 09-Apr-2018 16:12 Encounter Diagnosis: Soft tissue mass End: 09-Apr-2018 16:15 [facility] Office Visit On: 09-Apr-2018 10:58 Encounter Reason: Lumps - The onset of the lumps has been acute and has been occurring for 3 days. Note for Lumps: noted rt side of neck lump, no pain, no swallowing issues, not wt loss, no new meds. Had cortisone shots in both knees and hip. End: 09-Apr-2018 12:04 Encounter Diagnosis: Non-smoker, BMI 23.0-23.9, adult, Palpable mass of neck [facility] Office Visit On: 13-Mar-2018 10:35 Encounter Diagnosis: Need for prophylactic vaccination and inoculation against influenza (Renamed from Need for immunization against influenza) End: 13-Mar-2018 12:05 [facility] Office Visit On: 31-Dec-2017 9:21 Encounter Reason: Follow up tests - Diagnostic tests include other (labs, abd xray). Note for Discuss procedure results: Had stomach pain and now resolved after being on macrobid, still have 2 days left but feels a difference., End: 31-Dec-2017 10:11 [ADDITIONAL REASON] Back Pain - This condition occurred following a specific injury (moving boxes). The injury involved the upper back. Encounter Diagnosis: Abdominal pain, BMI 22.0-22.9, adult, Non-smoker, UTI (urinary tract infection), Constipation, Neck pain [facility] Annotation/Addendum On: 24-Dec-2017 22:16 Encounter Diagnosis: UTI (urinary tract infection) End: 24-Dec-2017 22:31 [facility] Office Visit On: 19-Dec-2017 10:44 Encounter Reason: Abdominal pain - The onset of the pain has been sudden and has been occurring for 1 week. The pain is described as dull ache. The pain is described as being located in the right lower quadrant and left End: 19-Dec-2017 13:38 lower quadrant. The symptoms have been associated with bloating, diarrhea and nausea. Note for Pain: Lower abd pain, now sore lower abd, feel like got to go then small Always real regular, now not, no erik a change in BM, first stool formed and then feeling of urgency. No travel, coffee 4 cups in am. No new antibiotic, no procedure.Last colonoscopy 10 years agoEncounter Diagnosis: BMI 22.0-22.9, adult, Non-smoker, Abdominal pain, Change in bowel habit [facility] Office Visit On: 12-Dec-2017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 the body (110.5), Chest pain,unspecified (786.59), Tachy/Bradycardia (427.89), Ankle/Foot Pain (719.47) [facility] Annotation/Addendum On: 21-Jul-2011 9:52 Encounter Diagnosis: Unspecified Diagnosis End: 21-Jul-2011 9:55 [facility] Office Visit On: 11-Jul-2011 14:17 Encounter Reason: CoughEncounter Diagnosis: LARYNGITIS, ACUTE, W/O MENTION OF OBSTRUCTION (464.00), BRONCHITIS, NOT SPECIFIED ACUTE OR CHRONIC (490.) End: 11-Jul-2011 14:29 [facility] Lab Order On: 30-May-2011 11:13 Encounter Diagnosis: Ankle/Foot Pain (719.47) End: 30-May-2011 11:14 [facility] Office Visit On: 17-May-2011 11:54 Encounter Reason: Follow up for chronic medical issues - The patient feels well with no complaints, has good energy level and is sleeping well. Patient has been compliant with instructions. Current medication use: no malvin End: 17-May-2011 13:10 e effects, compliant with dosing regimen and considered effective by patient. Patient sleeps 7 hours per night. Impact of disease: emotional impact-mild. Nutrition: balanced diet, supplemental vitamins and low salt diet. The medical issues the patient is following up for include All identified problems below, cardiac issues (tachy/rosmery), depression, gastric reflux, high cholesterol, osteoarthritis, o steoporosis/osteopenia and other (anxiety, anemia). weight : (138-140). Note for Follow up for chronic medical issues: the abd/chest pain is gone- sheis still scheduled for hida- sheis losing weight a nd trying- no gerd - mood is alot better- but still has her days with brothers illness, [ADDITIONAL REASON] Follow up tests - Diagnostic tests include other (labs- cbc, cmp, troponin) and ultrasound (gallbladder). Date: (05/01/11). Follow up visit with no current symptoms. Note for Follow up tests: was ordered to also have hida scan done but she broke her left fifth toe Sunday evening and so hasn't been able to schedule the hida. Encounter Diagnosis: GERD (530.81), Hypertension (401.0), Depression (311.), Hypercholesterolemia (272.0) [facility] Phone Encounter On: 05-May-2011 14:35 Encounter Diagnosis: Nausea alone (787.02) End: 05-May-2011 14:37 [facility] Office Visit On: 01-May-2011 13:46 Encounter Reason: Chest pain - The onset of the pain has been sudden and has been occurring in a recurrent pattern for 5 days. The pain is described as a mild to moderate pressure sensation. The pain is described as bein End: 01-May-2011 14:22 g located in the left chest, right chest, substernal area and epigastrium. The pain radiates to the neck. There are no precipitating factors. The symptoms have no aggravating factors. The symptoms have no relieving factors. The symptoms have been associated with abdominal pain (bloating/discomfort), dizziness (few times), nausea and neck pain, while the symptoms have not been associated with cough, dy spnea, emotional stress, fever, palpitations, shoulder pain, syncope, vomiting, wheezing or heartburn. Note for Chest pain: today all ate was beef broth- and still feels it- despite eating light- stil l taking prilosec - - still has gallbladder- no back pain- no sob cough - more pain going up neck- took pulse was fine-started thur morning- not overtly stressed out- exertion no change the sx- more whe n she eats- no leg swelling or clf pain and no recent travel- no vomit - bowels little looserEncounter Diagnosis: Need for prophylactic vaccination and inoculation against influenza (V04.81), Chest pain,unspecified (786.59), Dizziness(780.4) [facility] Annotation/Addendum On: 09-Feb-2011 9:23 Encounter Diagnosis: Well Women Exam (V72.31)( Pap, Mammo, Routine Female and Dexa) (Renamed from Well Woman V72.31 (p,m,d)) End: 09-Feb-2011 9:32 [facility] Office Visit On: 14-Dec-2010 8:11 Encounter Reason: Ankle Pain - This condition occurred in association with an established activity. The patient sustained an injury to the left ankle. This occurred 1 day(s) ago at home. The activity occurred at home. Sy End: 14-Dec-2010 8:39 mptoms include ankle pain, swelling, stiffness and difficulty bearing weight, while symptoms do not include redness, warmth or localized bruising. Symptoms are located in the left lateral ankle. The alex n radiates to the left lower leg. The patient describes the pain as burning and stinging. Onset was sudden immediately after the injury. The symptoms occur constantly. The patient describes symptoms as moderate in severity and unchanged. Symptoms are exacerbated by bearing weight. Symptoms are relieved by rest. Associated symptoms include lateral foot pain. Previous presentation included ankle pain, swelling and difficulty bearing weight. Encounter Diagnosis: Ankle/Foot Pain (719.47) [facility] Office Visit On: 15-Nov-2010 12:58 Encounter Reason: Follow up for chronic medical issues - The patient feels well with no complaints, has good energy level and is sleeping well. Patient has been compliant with instructions. Current medication use: no malvin End: 15-Nov-2010 13:51 e effects, compliant with dosing regimen and considered effective by patient. Patient sleeps 7 hours per night. Impact of disease: emotional impact-mild. Nutrition: balanced diet, supplemental vitamins and low salt diet. The medical issues the patient is following up for include All identified problems below, cardiac issues (tachy/rosmery), depression, gastric reflux, high cholesterol, osteoarthritis, o steoporosis/osteopenia and other (anxiety, anemia). weight : (138-140). Note for Follow up for chronic medical issues: she is feeling pretty good- - bp is good andmood is better than was- she is rubi g to weight watchers- still struggling with brothers health- retiring in may - had labs in last few mos-no gerd- is having hearing issues and has appt iwth [facility] needs referral- back is feeling better- no abd pain or diarrhea Encounter Diagnosis: Depression (311.), Hypertension (401.0), Hypercholesterolemia (272.0), GERD (530.81), Eustachian tube dysfunction (381.81), Vaginal discharge (Renamed from Discharge from the vagina), Acute cystitis (595.0), BACTERIAL VAGINOSIS (131.01), Abdominal Pain,LLQ (789.04), INFECTIOUS MONONUCLEOSIS (075.), Diarrhea (Renamed from D (diarrhea)), Hearing loss, unspecified (389.9) [facility] Office Visit On: 07-Sep-2010 11:15 Encounter Reason: Sinusitis/ - The duration of the symptoms are 1 week The course has been worsening. The sinusitis/ has no relieving factors. Associated features include The symptoms have been associated with ear pain, End: 07-Sep-2010 11:49 nasal discharge/stuffy nose, sinus pain, swollen lymph glands and teeth pain, while the symptoms have not been associated with cough. No previous evaluations were reported.Encounter Diagnosis: Acute sinusitis, unspecified (461.9), Eustachian tube dysfunction (381.81) [facility] Office Visit On: 19-Aug-2010 13:36 Encounter Reason: Back pain - The onset of the pain has been sudden and has been occurring in a persistent pattern for days. The course has been constant. The pain is characterized as a dull ache. The pain is described a End: 19-Aug-2010 14:30 s being located in the lumbar area. The pain radiates to the lateral aspect of right leg and lateral aspect of left leg. There are no precipitating factors. The symptoms are aggravated by rest, weight l ifting, prolonged standing and prolonged sitting. The symptoms have no relieving factors. The pain has been associated with back stiffness.Encounter Diagnosis: Low back pain (724.2), Muscle spasm (728.85) [facility] Office Visit On: 23-Jun-2010 6:57 Encounter Reason: UTI - The urinary symptoms are described as frequency. The symptoms have been occurring for 4 days and have been constant. The urine is described as clear. The symptoms have been associated with abdomi End: 23-Jun-2010 7:41 nal pain, while the symptoms have not been associated with low back pain. There is no medical history of diabetes, current , vaginitis, kidney stones or recurrent urinary tract infections. The patient denies the use of oral contraceptives, antibiotics, hormone replacement therapy or pyridium/uristat., [ADDITIONAL REASON] Ear pain - The onset of the pain has been sudden and has been occurring in a per sistent pattern for 1 week. The course has been constant. The pain is described as a mild pressure. The pain is described as being located in the inner ear. The pain is felt in both sides. The symptoms have been associated with decreased hearing, while the symptoms have not been associated with fever or inability to 'pop' ear drum. Encounter Diagnosis: SYMPTOM, DYSURIA (788.1), Vaginal discharge (623.5), BACTERIAL VAGINOSIS (131.01), Acute cystitis (595.0), Hearing loss, unspecified (389.9), Eustachian tube dysfunction (381.81) [facility] Office Visit On: 05-Jan-2010 14:09 Encounter Reason: Follow up acute care visit - The patient feeling better since last seen and improving. Patient has been compliant with instructions. Current medication use: no side effects ,compliant with dosing regime End: 05-Jan-2010 15:09 n and considered effective by patient. The medical issues the patient is following up for include All identified problems below and other (eczma). Encounter Diagnosis: Eczema (692.9) [facility] Office Visit On: 23-Dec-2009 10:53 Encounter Reason: Rash - The onset of the rash has been sudden and has been occurring in an intermittent (worse with hot water) pattern for 3 weeks. The course has been increasing (was bad last night before i went to bed End: 23-Dec-2009 11:38 ). The rash is characterized as red and flat. The rash was first seen on interdigitous areas (phlanges of the feet). It spread to sites of pressure (palmar surface of hands). There has been associated itching. Encounter Diagnosis: Eczema (692.9) [facility] Annotation/Addendum On: 27-Oct-2009 17:10 [facility] End: 27-Oct-2009 17:12 Office Visit On: 26-Oct-2009 16:50 Encounter Reason: Abdominal pain - The onset of the pain has been gradual and has been occurring in a persistent pattern for 1 months. The course has been constant. The pain is described as a moderate dull ache (soreness End: 26-Oct-2009 22:41 ) and pressure sensation. The pain is described as being located in the suprapubic area and lower abdomen. The pain does not radiate. The symptoms are aggravated by walking and motion. The symptoms have no relieving factors. The symptoms have been associated with bloating ,constipation ,diarrhea and nausea, while the symptoms have not been associated with bloody stools ,chest pain ,dark urine ,dysuria ,fever ,heartburn ,vaginal bleeding ,vaginal discharge or vomiting. Note for Abdominal pain: feeling exhausted - no fever- no vomit but nauseated-appetite comes and goes stools soft not diarrhea-Encounter Diagnosis: Abdominal Pain,LLQ (789.04), Diarrhea (787.91) [facility] Office Visit On: 30-Aug-2009 16:10 Encounter Reason: Follow up for chronic medical issues - The patient feels well with no complaints ,has good energy level and is sleeping well. Patient has been compliant with instructions. Current medication use: no malvin End: 30-Aug-2009 16:48 e effects and compliant with dosing regimen. Patient sleeps 7 hours per night. Nutrition: balanced diet ,supplemental vitamins and low salt diet. The medical issues the patient is following up for inclu de All identified problems below ,cardiac issues (tachy/rosmery) ,depression ,gastric reflux ,high cholesterol ,osteoarthritis ,osteoporosis/osteopenia and other (anxiety, anemia). weight :. Note for Fol low up for chronic medical issues: she likes the welbutrin and her bp is good- but in general happy with welbutrin more energy and seeing the head turbine operator-- no issues withthe crestor- wever since cortison e into knee has been good-- back pain gone- we talked about slow wean of zoloft, [ADDITIONAL REASON] Follow up, Laboratory Test Results - Date: (07/29/09). Encounter Diagnosis: Hypertension (401.0), Depression (311.), Abnormal mammogram (793.80), Osteopenia (733.90), Hypercholesterolemia (272.0), Low back pain (724.2), Shoulder pain (Renamed from Pain in shoulder), DISORDERS, ORGANIC, SLEEP RELATED LEG CRAMPS (327.52), Calf pain, Candidiasis of unspecified site (112.9) [facility] Office Visit On: 24-Jun-2009 15:16 Encounter Reason: Back pain - The onset of the pain has been sudden and has been occurring in an intermittent pattern for 4 days. The course has been recurrent. The pain is characterized as stabbing. The pain is describe End: 24-Jun-2009 16:01 d as being located in the lumbar area. The pain does not radiate. There are no precipitating factors. The symptoms are aggravated by exertion (bending over, walking). The symptoms are relieved by lying down and stretching. The pain has been associated with back stiffness and flank pain, while there has been no abdominal pain ,chills ,dysuria ,fever ,hip pain ,incontinence of urine ,leg weakness ,paresthesias in leg or use of anti-coagulants. Encounter Diagnosis: Low back pain (724.2) [facility] Historical Summary On: 29-Mar-2009 19:06 [facility] End: 29-Mar-2009 19:06 Office Visit On: 10-Mar-2009 8:02 Encounter Reason: Follow up Meds - The patient feels well with minor complaints (still some anxiety with brother, but its better than before.) ,has good energy level and is sleeping well. Patient has been compliant with End: 10-Mar-2009 8:41 instructions. Current medication use: no side effects and compliant with dosing regimen. Patient sleeps 7 hours per night. Note for Follow up Meds: she feels the welburtin has done well-- she doesnt w ant to adjust the dose she feels like she is doing fine with this at present time- she wants to hold on actonel for now, [ADDITIONAL REASON] Follow up, Diagnostic Procedure Results - Diagnostic tests include X-Ray (knee a nd back). Date: (02/03/09 and 02/17/09). Encounter Diagnosis: Knee pain (719.46), LOW BACK PAIN WITH RADICULOPATHY (724.4), Depression (311.), Hypercholesterolemia (272.0), Osteopenia (733.90) [facility] Office Visit On: 03-Feb-2009 14:56 Encounter Reason: Knee Pain - The onset of the knee pain has been gradual following no specific incident and has been occurring in an intermittent pattern for 4 months. The course has been gradually worsening. The knee p End: 04-Feb-2009 19:18 ain is moderate to severe. The knee pain is characterized as a dull aching. The knee pain is described as being located in the posterior knee (rt knee) and thigh (right above knee and down into loaiza). T he knee pain is relieved by bracing (pressure with hands). The symptoms have been associated with painful ROM ,decreased ROM and difficulty going up and down stairs, while the symptoms have not been ass ociated with muscle cramps ,muscle swelling ,warmth ,burning sensation ,fever ,chills or difficulty arising from chair. Note for Knee Pain: hx of torn meniscus 07/10- got shot of cortisone since then o kuntil now- this is differnet- pain back of knee and dont front of loaiza- -- worse with sitting or going down stairs- - no leg or knee swelling think maybe swollen behind knee and warm- she had nonoffici al us of right leg 1 month ago and was neg for clot or bakers cyst-- done at hospital-- -last night the right side of foot felt numb- leg feels weak- no change in bowel or bladder controlEncounter Diagnosis: LOW BACK PAIN WITH RADICULOPATHY (724.4), Knee pain (719.46), Calf pain (729.5) [facility] Office Visit On: 11-Jan-2009 16:10 Encounter Reason: Follow up for chronic medical issues - The patient feels well with minor complaints (rt shoulder pain) ,has good energy level and is sleeping well. Patient has been compliant with instructions. Current End: 11-Jan-2009 22:42 medication use: no side effects and compliant with dosing regimen. Patient sleeps 7 hours per night. Nutrition: balanced diet ,supplemental vitamins and low salt diet. The medical issues the patient is following up for include All identified problems below ,cardiac issues (tachy/rosmery) ,depression ,gastric reflux ,high cholesterol ,osteoarthritis ,osteoporosis/osteopenia and other (anxiety, anemia). N ote for Follow up for chronic medical issues: her brother in [facility] and got a pressure sore- having to go to wound center- and has osteomyelitis- she is poa- this has made her more depressed- then had to have breast bx last week- awaiting results- she hasnt had time to exercise- her bps have been good at home, [ADDITIONAL REASON] Follow up, Laboratory Test Results - Date: (01/06/09). , [ADDITIONAL REASON] Shoulder Pain - The onset of the shoulder pain has been sudden following no specific incident and has been occurring in an intermittent pattern for 1 weeks. The course has been recu rrent. The shoulder pain is mild to moderate. The shoulder pain is characterized as a sharp stabbing. The shoulder pain is described as being located in the right shoulder. The shoulder pain is aggravat ed by overhead activity. Relieving factors include medication (advil). Associated features include: painful ROM ,decreased ROM ,difficulty overhead activities and difficulty dressing oneself, but not mu scle stiffness ,muscle swelling ,warmth ,burning sensation ,fever ,chills ,difficulty combing hairs or difficulty hooking bra. Encounter Diagnosis: Hypertension (401.0), GERD (530.81), Depression (311.), Osteopenia (733.90), Shoulder pain (719.41), Abnormal mammogram (793.80), Hypercholesterolemia (272.0), Chest pain,unspecified (786.59), Anemia(285.9), INFECTIOUS MONONUCLEOSIS (075.), Candidiasis of unspecified site (112.9) [facility] Office Visit On: 18-Sep-2008 12:59 Encounter Reason: Leg pain - The leg pain began suddenly and has been occurring for 3 days. The symptoms have been occurring in an intermittent pattern. The symptoms are described as a cramping and are severe. The sympto End: 18-Sep-2008 13:27 ms occur at rest and at night. There is involvement of the left calf and right calf. There are no precipitating factors. There are no aggravating factors. Relief is provided by massage and other (walk). There have been no previous evaluations. Encounter Diagnosis: Calf pain (729.5), DISORDERS, ORGANIC, SLEEP RELATED LEG CRAMPS (327.52) [facility] Office Visit On: 06-Jul-2008 17:18 Encounter Reason: Follow up for chronic medical issues - The patient feels well with no complaints ,has good energy level and is sleeping well. Patient has been compliant with instructions. Current medication use: no malvin End: 06-Jul-2008 22:09 e effects and compliant with dosing regimen. Patient sleeps 8 hours per night. Nutrition: balanced diet ,supplemental vitamins and low salt diet. The medical issues the patient is following up for inclu de All identified problems below ,cardiac issues (tachy/rosmery) ,depression (anxiety) ,gastric reflux ,high blood pressure ,high cholesterol ,osteoarthritis ,osteoporosis/osteopenia and other (anemia, os a, garibay). blood pressure range : (140's/80's, 130's/70's and 120's/70's, varies) and weight :. Note for Follow up for chronic medical issues: - she is back on the benicar because she was running 140 /80 s at end of workday- in am was 129/77- - she is only taking benicar 20mg - so will increase to 40mg - her wt up a few pounds but she is exercing- chol is way up- she quit the red yeast rice- because did tn think was helping but likely was- she is really watching the diet -- and her son reviewed her ct of abdomen- he is interventional radiologist and said he could see her arteries well sand looked good so she decided not to get cta done- no abdominal pain and bowels have been good- mood good and not much gerd, [ADDITIONAL REASON] Follow up, Laboratory Test Results - Date: (06/17/08). Encounter Diagnosis: Hypertension (401.0), GERD (530.81), Hypercholesterolemia (272.0), Depression (311.), rhomboid spasm- pt starting massotherapy if not better- pt /imaging- pt to call no improve [facility] Office Visit On: 01-Apr-2008 16:00 Encounter Reason: Follow up, Laboratory Test Results - Date: (03/19/08- in df's recieved documents from Dr. Nichole at [facility]). Note for Follow up, Laboratory Test Results: f/u from seeing Adiel Diagnosis: ischemic colitis End: 01-Apr-2008 21:01 [facility] Office Visit On: 13-Feb-2008 8:16 Encounter Reason: Follow up Meds - The patient feels well with no complaints ,has good energy level and is sleeping well. Patient has been compliant with instructions. Current medication use: no side effects ,has decreas End: 13-Feb-2008 8:56 ed dose ,compliant with dosing regimen and considered effective by patient. Patient sleeps 6 hours per night. Impact of disease: no overall impact. Nutrition: balanced diet. Note for Follow up Meds: w as taken off benicar 40 mg 123/81 102/74 118/78 123/77 108/73 143/78 145/86 , [ADDITIONAL REASON] Follow up, Laboratory Test Results - Date: (01-14-08). Current symptoms/reason fo r visit include/s Symptoms include easy bruisability. There is a family history of cardiovascular disease (mother) , while there is no family history of breast cancer ,cystic fibrosis ,Down's syndrome , mental retardation or myocardial infarction before age 55. Past medical history includes elevated cholesterol ,emotional problems (anxiety/depression) ,gastroesophageal reflux disease and other (OA, ost eopenia ). Note for Follow up, Laboratory Test Results: her bp has been pretty good- she has a rare 140 but most in 110-120 range-- her lightheadedness is gone and fatigue is better- no bowel sx and r egular with out pain- she has bruised more easily in the last 15 years Encounter Diagnosis: ischemic colitis, Hypertension (401.0), Hypercholesterolemia (272.0), Anemia(285.9) [facility] Office Visit On: 08-Jan-2008 7:56 Encounter Reason: Follow up for chronic medical issues - The patient feels well with minor complaints (feeling better, still fatigued at times) ,has decreased energy level and is sleeping well. Patient has been compliant End: 08-Jan-2008 8:32 with instructions. Current medication use: no side effects and compliant with dosing regimen. The medical issues the patient is following up for include All identified problems below ,cardiac issues (t achy/rosmery) ,gastric reflux ,high blood pressure ,high cholesterol ,osteoarthritis ,osteoporosis/osteopenia and other (todd, anxiety). blood pressure range : (100's/60's to 120's/70's) and weight :. Note for Follow up for chronic medical issues: stool is starting to get formed- she had ischemic colitis-- her pressure- was low normal - low 100s -- likely from wt loss- her bp low-- Dr Lebron-- thought due to low bp-- so took her off the meds for bp -- outpt bps 102- 139/ 72-84-- had been off remifeminin for 2 mos-- no reflux-- mood has been better- no headaches-- no abdominal pain-- , [ADDITIONAL REASON] Fatigue - The onset of the fatigue has been sudden and has been occurring in a persistent pattern for 1 weeks. The course has been constant. The fatigue occurs towards the end of . The symptoms have been associated with use of anti-depressants, while the symptoms have not been associated with abdominal pain ,chest pain ,chills ,cough ,fever ,headache ,nasal stuffiness ,phle gm ,runny nose ,sore throat or use of anti-histaminics. Note for Fatigue: she feels this is from the hospitalization and the diarrhea-- she is just getting back to normal Encounter Diagnosis: Hypertension (401.0), GERD (530.81), Depression (311.), ischemic colitis, Hypercholesterolemia (272.0) [facility] Office Visit On: 30-Dec-2007 10:34 Encounter Reason: Nausea - The onset of the nausea has been sudden and has been occurring in a persistent pattern for 3 days. The course has been constant. The vomiting is characterized as containing undigested food. The End: 30-Dec-2007 11:59 nausea has no relationship to meals. The symptoms have no aggravating factors. The symptoms have no relieving factors. The symptoms have been associated with abdominal pain ,diarrhea ,fever ,headache a nd vomiting, while the symptoms have not been associated with chest pain ,dark urine ,neck stiffness ,upper respiratory infection symptoms ,use of medications or vertigo. Note for Nausea: sat night st arted vomiting-- and vomited every hour then dry heaves-- pain actually came first in low abdomen-- 1 time had bm-- the other times has passed gas and blood-- bright red blood-- - intermittently-- eatin g alot of fiber- strawberries-- didnt take temp- didnt feel feverish-- did have sweats and chills-- since sat night - ate some jello tea and crackers-- no longer dry heaving-- having nausea-- pain comes and goes- but when pain comes get the bleeding-- and nausea- this am even her llq sore -- did have diverticulitis in the past, [ADDITIONAL REASON] Rectal bleeding - The onset of the rectal bleeding has been sudden and has been occurring in a persistent pattern for 2 days. The course has been constant. The rectal bleeding is characterized as blood mixed in stools (clots) ,blood streaking of toilet paper and bloody toilet bowl water. The symptoms have been associated with abdominal pain ,change in bowel habits ,nausea ,use of aspirin and vomiting, while the symptoms have not been associated with heartburn ,ingestion of beets ,ingestion of bismuth ,ingestion of iron pills ,mucus or pus with stool ,painful bowel movements or use of anti-coagulants. Encounter Diagnosis: Abdominal Pain,LLQ (789.04), Rectal Bleeding(569.3), Nausea and vomiting (787.01) [facility] Visit On: 27-Sep-2007 8:17 Encounter Reason: Follow up for chronic medical issues - The patient feels well with no complaints ,has good energy level and is sleeping well. Patient has been compliant with instructions. Current medication use: no malvin End: 27-Sep-2007 9:14 e effects and compliant with dosing regimen. Nutrition: balanced diet ,supplemental vitamins and low salt diet. The medical issues the patient is following up for include All identified problems below , depression (garibay) ,gastric reflux ,high blood pressure ,high cholesterol ,osteoarthritis ,osteoporosis/osteopenia and other (garibay, ). blood pressure range : (110's/70's) and weight :. Note for Follow up fo r chronic medical issues: she is feeling great and hasnt needed the atenolol - she started why wt - and lost 6 pounds and is exercising- her headaches are gone and hotflashes are better with remifem-- mood is great, [ADDITIONAL REASON] Follow up, Laboratory Test Results - Date: (08/20/07). , [ADDITIONAL REASON] Follow up, Diagnostic Procedure Results - Diagnostic tests include mammography and other (bone dexa). Date: (09/03/07). Encounter Diagnosis: Hypertension (401.0), Depression (311.), Hypercholesterolemia (272.0), GERD (530.81), Hot Flashes (782.62), Headache, tension (307.81), Hematuria (599.7) [facility] Office Visit On: 24-Jun-2007 9:23 Encounter Reason: Follow up, Diagnostic Procedure Results - Diagnostic tests include other (stress echo). Date: (06/12/07). Note for Follow up, Diagnostic Procedure Results: her bps have been good at home and she is plea End: 24-Jun-2007 9:48 sed with it - she has tried alot of otc meds for hot flashes and doesnt feel well- she really wants to go back on premarin-- she was on for 14 years-- she hasnt tried estrovan otc yet though only soy- h er headaches are much better with improvemnt in bp, [ADDITIONAL REASON] Hot flashes - The onset of the hot flashes has been gradual and they have been o ccurring in a persistent pattern for 4 months. The course has been increasing. The hot flashes are described as moderate. Note for Hot flashes: ran out of zoloft and hasnt had for 2 weeks - she needs to go back on that Encounter Diagnosis: Hypertension (401.0), Depression (311.), Hot Flashes (782.62) [facility] Office Visit On: 07-Jun-2007 8:47 Encounter Reason: high blood pressure - The patient has experienced high blood pressure for days. blood pressure range : (163/100-129/81). Note for high blood pressure: Pt states she has been off work for 2 days and BP End: 07-Jun-2007 9:45 has went down since then- and she wasnt taking atenolol until the last 4 days because she took once and made her dizzy - she is going to start exercising and has cut all caffeine and saltEncounter Diagnosis: Hypertension (401.0), Dyspnea, On Exertion (786.09) [facility] Office Visit On: 24-Apr-2007 16:11 Encounter Reason: Follow up Hypertension - The patient has experienced follow up hypertension for weeks. The symptoms have been associated with family history of hypertension, while the symptoms have not been associated End: 28-Apr-2007 20:47 with anxiety ,excessive caffeine intake or use of nasal decongestants. blood pressure range : (170/90's then changes to 100's/70's. Varies quite abit.). Note for Follow up Hypertension: This is also a 2 week f/u on garibay. Pt had a terrible garibay, which is gone now, but still has some lightheadedness. Pt states she feels spacy. headaches much better but bp still spiking in the eveningEncounter Diagnosis: Hypertension (401.0), SOB (786.05), Headache, tension (307.81) [facility] Visit On: 10-Apr-2007 16:00 Encounter Reason: Headache/ - The onset of the headache/ has been sudden and has been occurring in an intermittent pattern for 3 days. The course has been recurrent. The headache/ is characterized as moderate and tightne End: 11-Apr-2007 9:34 ss. The headache/ is experienced any time of the day (no diurnal variation). The headache/ is described as being located in the frontal area and the back of head. The symptoms are aggravated by bright l ight, but not by noise or neck movement. The symptoms have been associated with nausea ,neck pain and sinusitis in the past, while the symptoms have not been associated with blurring of vision ,ear pain ,eye pain ,fever or nasal discharge/stuffy nose. The headache/ is relieved by NSAIDs (vicoden helps). Note for Headache/: after she took the antiobitoics the garibay went away - she has been off antiobito ics for 3 days then came back -- headache is up back of head and around - she did- get off the premarin-- her bp has been 130/70- vicoden took away and garibay occurs at the end of the day ---- she also note s that she has alot of tension in her shoulders and if she rubs her shoulders she feels betterEncounter Diagnosis: Hypertension (401.0), Headache (784.0) [facility] Office Visit On: 20-Mar-2007 9:02 Encounter Reason: Headache/ - The onset of the headache/ has been sudden and has been occurring in a persistent pattern for 4 days. The course has been constant. The headache/ is characterized as severe and throbbing. Th End: 20-Mar-2007 9:45 e headache/ is experienced any time of the day (no diurnal variation). The headache/ is described as being located in the frontal area and the back of head. The symptoms have been associated with blurri ng of vision (sunday, not now) ,nausea and neck pain, while the symptoms have not been associated with blindness ,ear pain ,eye pain ,fever ,head trauma ,migraine in the past or vertigo. Encounter Diagnosis: Headache (784.0) [facility] Historical Summary On: 28-Jun-2006 15:58 [facility] End: 28-Jun-2006 16:08 Historical Summary On: 05-Jun-2006 13:11 Encounter Diagnosis: Unspecified Diagnosis End: 05-Jun-2006 13:19 [facility] Historical Summary On: 30-Apr-2006 13:24 Encounter Diagnosis: Unspecified Diagnosis End: 30-Apr-2006 13:26 [facility] Phone Encounter On: 30-Apr-2006 13:23 Encounter Diagnosis: Unspecified Diagnosis End: 30-Apr-2006 13:24 [facility] Office Visit On: 04-Apr-2006 8:42 Encounter Diagnosis: Unspecified Diagnosis End: 04-Apr-2006 8:45 [facility] Office Visit On: 04-Apr-2006 7:54 Encounter Reason: Follow up Meds - The patient feels well with minor complaints (look @ moles on back and left side.) ,has good energy level and is sleeping well. Patient has been compliant with instructions. Current med End: 04-Apr-2006 8:32 ication use: no side effects. Patient sleeps 8 hours per night. Nutrition: inappropriate diet and supplemental vitamins. Note for Follow up Meds: started back on full dose of Premarin. Feels alot bett er - has been walking -has cut back on Zoloft to 50 - doing counseling q 2-3 weeks- got rid of tinea- fatigue is better from mono- has flu shot set up- never hato get cholestd peumovax- needs florina bloodwork- gettting back on wt watchers, [ADDITIONAL REASON] Follow up for chronic medical issues - The patient feels well with minor complaints and is sleeping well. Patient has been compliant with instructions. Current medication use: no si de effects. The medical issues the patient is following up for include high blood pressure and high cholesterol. Encounter Diagnosis: Hypertension (401.0), Hypercholesterolemia (272.0), Depression (311.), Anxiety state, unspecified (300.00), probable seborrheic keratosis- reassurance, CAROLINE, INFECTIOUS MONONUCLEOSIS (075.) [facility] Office Visit On: 25-Jan-2006 13:36 Encounter Reason: Bruising - The onset of the bruising has been gradual and has been occurring in an intermittent pattern for months. The course has been recurrent. The bruising is described as being located on the skin End: 01-Feb-2006 22:55 of both upper extremities and skin of both lower extremities. The bruising was precipitated by trauma. , [ADDITIONAL REASON] General Exam, Follow Up - Last seen between 1-3 months ago. General health: feel s well with minor complaints. The patient's appetite is normal. , [ADDITIONAL REASON] Depression - The onset of the depression has been gradual and has been occurring in a persistent pattern for months. The course has been increasing. The depression is described as feeling sad and nervous. The symptoms have been associated with lack of energy, while the symptoms hav e not been associated with alcoholism ,change in job , of a loved one ,delusions ,depression in the past ,difficulty sleeping ,drug abuse ,eligibility manager awakening ,episodes of spontaneous crying ,e xcessive sweating ,feeling tired ,financial difficulties ,hallucinations ,illusions ,loss of libido ,marital problems ,other systemic illness ,palpitations ,psychiatric illness in the past ,recent lozano es in life ,recent childbirth ,recent divorce ,suicidal attempts ,suicidal thoughts ,use of beta blockers ,use of methyldopa ,use of oral contraceptives ,use of reserpine ,use of sedatives or use of steroids. Encounter Diagnosis: INFECTIOUS MONONUCLEOSIS (075.), Depression (311.), Hypercholesterolemia (272.0), Hypertension (401.0), EASY BRUISABILITY OF SKIN, Other specified circulatory system disorders (459.89) [facility] Historical Summary On: 17-Jan-2006 15:40 [facility] End: 17-Jan-2006 16:04 Payers MedicareHumana/Supplement Ame Leonard; john guarantor
--- OUTSIDE RECORDS SUMMARY | 2018-08-24 15:36 | XMS RPT_ITS | Continuity of Care Document ---
:1940 External Reference #:[id number] Author Organization [facility] Address [address] [place] [address] Phone Care Team Providers Name Role Phone Catrina Perry DO Unavailable Ricardo Rollins MD Unavailable Dr. Addison Kimball Unavailable Poly Bunn Unavailable Duke PLASCENCIA, Dr. Janes Dougherty Unavailable Winter, Ladi Unavailable Unavailable Sadia Goel Unavailable Unavailable Libby Herndon Unavailable Unavailable Fallon Carranza Unavailable Unavailable Plant And Equipment Worker, System Unavailable Unavailable Carolin Garber LPN Unavailable [...] DO, DO, Kathleen Start : 09-May-2018 Active Citracal Maximum 315-250 MG-UNIT Oral Tablet [...] for 0 days Refills: 0 Ordered:31-Dec-2017 Slarb Manisha SEVILLAtive Omeprazole 20 MG Oral Capsule Delayed Release [address] qd for 90 days Quantity: 90 {Capsule} Refills: 3 Ordered:09-May-2018 Nick Perry DO, DO, Kathleen Start : 09-May-2018 Active Simvastatin 40 MG Oral Tablet 1 (one) Tablet qd for 90 days Quantity: 90 {Tablet} Refills: 1 Ordered:09-May-2018 Nick Perry DO, DO, Kathleen Start : 09-May-2018 Active ALEVE, 220MG (Oral Tablet) 2 (two) Tablet q8 hr prn with food for 0 days Quantity: 30 {Tablet} Refills: 0 Ordered:30-Jan-2012 Long HAND REAMER, L Start : 14-Dec-2010 End : 30-Jan-2012 [...] Quantity: 30 {Tablet} Refills: 3 Ordered:24-Apr-2007 Libby Hernodn Start : 24-Apr-2007 End : 27-Sep-2007 Inactive AUGMENTIN, 875-125MG (Oral Tablet) 1 Tablet bid for 14 days Quantity: 28 {Tablet} Refills: 0 Ordered:07-Sep-2010 Acacia Whaley CNP Start : 07-Sep-2010 End : 21-Sep-2010 Inactive BACTRIM DS, 800-160MG (Oral Tablet) 1 Tablet bid for 0 days Quantity: 20 {Tablet} Refills: 0 Ordered:06-Aug-2012 BETTE Edwards Start : 25-Jun-2012 End : 06-Aug-2012 [...] Quantity: 20 {Tablet} Refills: 0 Ordered:21-May-2015 Libby Hrendon Start : 11-Jan-2015 End : 21-May-2015 Discontinued [...] WITH Contrast Result: Comments: See Note; NOTES: [facility] Imaging Services [address] [place] [address] Soft Tissue Neck WITH Contrast MR#: [id number] Acct: [id number] Name: HERMAN LEONARD Rep #: [id number] : 1940 F 77 From: Michael Alonso MD PCP: Catrina Perry DO Status: REG CLI Study: Soft Tissue Neck WITH Contrast Date of Exam: 04/10/18 Exam# [id number] Ordering Dr: Acacia Whaley STUDY: CT SOFT [...] FINDINGS: Normal bilateral parotid glands. 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 Normal bilateral parapharyngeal spaces. Normal bilateral [...] Alonso MD 04/10 at 15:37 EST Tel [phone], Service support , CC: Acacia Whaley WAREHOUSE SORTER; Catrina Perry DO Machine Lead Burner: Signed 10-Apr-2018 Soft Tissue Neck WITH Contrast Result: Comments: See Note; NOTES: [facility] Imaging Services [address] [place] [address] Soft Tissue Neck WITH Contrast MR#: [id number] Acct: [id number] Name: HERMAN LEONARD Rep #: [id number] : 1940 F 77 From: Michael Alonso MD PCP: Catrina Perry DO Status: REG CLI Study: Soft Tissue Neck WITH Contrast Date of Exam: 04/10/18 Exam# [id number] Ordering Dr: Acacia Whaley P-C ADDENDUM by [...] Michael Alonso MD at 8:47 EST Tel [phone], Service support , 04/11/18 0847 Date cc [...] FINDINGS: Normal bilateral parotid glands. 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 Normal bilateral parapharyngeal spaces. Normal bilateral [...] Michael Alonso MD at 15:37 EST Tel [phone], Service support , CC: Acacia Whaley NP; Catrina Perry DO Machine Lead Burner: Signed 09-Apr-2018 Thyroid Result: Comments: See Note; NOTES: [facility] Imaging Services [facility] [place] [address] Thyroid MR#: [id number] Acct: [id number] Name: HERMAN LEONARD Rep #: [id number] : [birth year] F 77 From: Michael Alonso MD PCP: Catrina Perry DO Status: REG CLI Study: Thyroid Date of Exam: 04/09/18 Exam# [id number] Ordering Dr: Acacia Whaley WAREHOUSE SORTER-C STUDY: THYROID ULTRASOUND REASON FOR EX AM: [...] Alonso MD at 15:[address] Tel [phone], Service support , CC: Acacia Whaley NP; Catrina Perry DO Machine Lead Burner: Signed 19-Dec-2017 Abdomen Single View Result: Comments: See Note; NOTES: [facility] Imaging Services [address] [place] [address] Abdomen Single View MR#: [id number] Acct: [id number] Name: HERMAN LEONARD Rep #: [id number] D OB: 1940 F 76 From: Chris Rachel MD PCP: Catrina Perry DO Status: REG CLI Study: Abdomen Single View Date of Exam: 12/19/17 Exam# [id number] Ordering Dr: Acacia Whaley STUDY: X-RAY - [...] , Service support , CC: Acacia Whaley WAREHOUSE SORTER; Catrina Perry DO Machine Lead Burner: Signed 20-May-2015 Dexa Bone Density Study (HP) Result: Comments: See Note; NOTES: [facility] Imaging Services [address] [place] [address] Verdana 4d Dexa Bone Density Study (HP) MR#: [id number] Acct: [id number] Name : HERMAN LEONARD Rep #: [id number] : 1940 F 74 From: Michael Alonso MD PCP: Tessie Greene DO Status: REG CLI Study: Dexa Bone Density Study (HP) Date of Exam: 05/20/15 Exam# [id number] Zulema carney Dr: Tessie Greene DO STUDY: [...] Michael Alonso MD at 10:30 EST Tel [phone], Service support [phone], CC: Jailyn Yang MD; Tessie Greene DO Machine Lead Burner: Signed 06-Apr-2015 Bilat Scrn Digital AND CAD Result: Comments: See Note; NOTES: [facility] Imaging Services [address] [place] [address] Verdana 4d Bilat Scrn Digital AND CAD MR#: [id number] Acct: [id number] Name: HERMAN LEONARD Rep #: [id number] : 1940 F 74 From: Michael Alonso MD PCP: Tessie Greene DO Status: REG CLI Study: Bilat Scrn Digital AND CAD Date of Exam: 04/06/15 Exam# [id number] Ordering D r: Tessie Greene DO MAMMOGRAPHY [...] Michael Alonso MD at 7:54 EST Tel [phone], Service support [phone], CC: Tessie Greene DO Machine Lead Burner: Signed 05-Feb-2015 EKG (89321) Comments: ekg showed normal sinus rhythym, normal axis, no acute st/t wave changes Result: [MEASUREMENTS ANALYSIS] Date of Test: 02/05/2015 09:47:50; Heart Rate: 58; ME Interval: 156; QRS: 93; QT Interval: 420; Corrected QT Interval (QTc): 417; P Wave Sherwood: 31; QRS Wave Sherwood: 31; T Wave Sherwood: 44; Blood Pressure: 122/84 [ECG DIAGNOSTIC STATEMENTS] Date of Test: 02/05/2015 09:47:50; Summary: Sinus Bradycardia WITHIN NORMAL LIMITS 27-Mar-2014 Bilat Scrn Digital & CAD Result: Comments: See Note; NOTES: [facility] Imaging Services [address] [place] [address] Breast Imaging Report MR#: [id number] Acct: [id number] Name: HERMAN LEONARD Rep #: [id number] : 1940 F 73 From: Michael Alonso MD PCP: Tessie Greene DO Status: REG CLI Exam# [id number] Ordering Dr: Tessie Greene DO MAMMOGRAPHY - [...] Michael Alonso MD at 9:36 EDT Tel [phone], Service support [phone], CC: Tessie Greene DO Machine Lead Burner: Signed 26-Mar-2013 Bilat Scrn Digital & CAD Result: Comments: See Note; NOTES: [facility] Imaging Services [address] [place] [address] Breast Imaging Report MR#: [id number] Acct: [id number] Name: HERMAN LEONARD Rep #: [id number] : 1940 F 72 From: Michael Alonso MD PCP: Tessie Greene DO Status: REG CLI Exam# [id number] Ordering Dr: Tessie Greene DO MAMMOGRAPHY - [...] a clinically suspicious abnormality. Sign ed: Michael Alonso M.D. March 26, 2013 at 2:33:33 PM EDT [phone] Electronically Signed GP/GP If you are the referring physician and would like to consult with the radiologist who pr ovided this interpretation, please contact Michael Alonso M.D. at [phone]. If this radiologist is unavailable, you will be directed to another radiologist to assist. If you are a patient w ith a question regarding this report, please contact your referring physician directly. Professional Interpretation Provided By: [facility], Phone , These documents contain legally protected [...] of these documents. CC: Tessie Greene DO Machine Lead Burner: Signed Immunization Name Dates Details Pneumococcal (2 years and up) on: 04-Apr-2006 Pneumococcal (2 years and up) on: 04-Apr-2006 Comments: Lot #:Expiration date:Amount given:Route: IMSite given:LEFT DELTOIDGiven by: EDILMA Weinberg Family History Unknown Family Member Name Dates Details Father Comments: [place] Status: Active Mother Comments: CHF Status: Active Paternal Grandmother Comments: ABD CA Status: Active Social History Name Dates Details Alcohol Use Comments: Occasional alcohol use Status: Active Non Smoker/No Tobacco Use Status: Active Tobacco use: Never smoker. Status: Active Smoking Status Name Dates Details Never smoker Vital Signs Date Test Result Details 18-Odz-821973:44 Temperature 97.3 f Comments: Method: Temporal Pulse [...] DONE IN LAB See Note (Normal) Comments: [facility] [address] [place], [place], [address] Comments: Patient: HERMAN LEONARD : 1940 (77/F) Acct Num: [id number] Phys: Ria PLASCENCIAAnkeny Unit Num: [id number] Loc: LAB Specimen: [id number] Received: 04/17/188 Spec [...] Submitted for cytology study. TC: 5 CPT: 84683, 933374, 00614 , 38052 CYTOLOGY STUDY Slides are reviewed. DIAGNOSIS CYTOLOGY Fine needle aspiration, right neck mass (smear, cell block): Negative for malignant cells. See comment. AM:sp 04/18/18 HEADER OPERATION: FNA, right neck mass PRE-OP DIAGNOSIS: Right neck mass TISSUE SUBMITTED: Right neck mass Signed [facility] 04/18/18 <signature on file> 3-Tti-593688:47 CREATININE FINGERSTICK Comments: [facility] LaboratoryPoint of [address] [place] [address] EGFR WB > 60.0000 mL/min (Normal) CREATININE WB 0.8 mg/dL (Normal) Range: 0.55-1.02 :40 Bilirubin, Direct Comments: Order Date: 03/13/17Order Info: 0788- [id number] - *Hepatic Function PanelOrder Info: 03365-9 - *Lipid Profile CC PCPComments: 12 hours fasting, may have water.DR PÉREZ ORDERED LIPID/LIVERDR VICKY ORDERED TS H/CBCD/LIPID/CMP/UA/[facility] [address] [place], [address] D BILI 0.11 mg/dL (Normal) Range: 0.00-0.30 :40 CBC W/Diff, Automated Comments: DR PÉREZ ORDERED LIPID/LIVERDR VICKY ORDERED TSH/CBCD/LIPID/CMP/UA/[facility] [address] [place], [address] SMEAR COMMENT SCANNED [...] 4.2-5.4 WBC 5.8 K/mm3 (Normal) Range: 4.4-11.0 64-Ybo-90373:40 [facility] Metabolic Comments: Order Date: 03/13/17Order Info: 0788-1 - *Hepatic Function PanelOrder Info: 53666-6 - *Lipid Profile CC PCPComments: 12 hours fasting, may have water.DR PÉREZ ORDERED LIPID/LIVERDR VICKY ORDERED TS Profil H/CBCD/LIPID/CMP/UA/[facility] [address] [place], [address] GAP 5 (Normal) Range: 5-15 CO2 32.0 [...] Comments: Please note revised GLUCOSE reference range lhfdrbnuv09/02/2018. 74-Hjt-63842:40 Lipid Profile Comments: Order Date: 03/13/17Order Info: 0788-1 - *Hepatic Function PanelOrder Info: 76024-3 - *Lipid Profile CC PCPComments: 12 hours fasting, may have water.DR PÉREZ ORDERED LIPID/LIVERDR VICKY ORDERED TS H/CBCD/LIPID/CMP/UA/[facility] [address] [place], [place], [address] VLDL 11 mg/dL (Normal) Range: 5-40 LDL [...] Comments: DR PÉREZ ORDERED LIPID/JUNIOR PERRY ORDERED TSH/CBCD/LIPID/CMP/UA/[facility] [address] [place], [address] Ratio,Random UR MALB:CREAT 9.7 {mg/g_CRE} (Normal) MICROALBUMIN,UR 5.3 mg/L (Normal) UR CREAT 55.10 mg/dL (Normal) :40 Thyroid Stim Hormone Comments: Order Date: 03/13/17Order Info: 0788-1 - *Hepatic Function PanelOrder Info: 83555-3 - *Lipid Profile CC PCPComments: 12 hours fasting, may have water.DR PÉREZ ORDERED JUAN/JUNIOR PERRY ORDERED TS (TSH) H/CBCD/LIPID/CMP/UA/[facility] [address] [place], [address] TSH 1.84 {uIU/mL} (Normal) Range: 0.358-3.74 :40 Urinalysis, Complete Comments: DR PÉREZ ORDERED LIPID/JUNIOR PERRY ORDERED TSH/CBCD/LIPID/CMP/UA/MIACREHow was Urine Obtained? [facility] [address] [place], [address] MUCUS, URINE 0 SEEN {/hpf} (Normal) [...] (Normal) CLARITY Clear (Normal) COLOR Yellow (Normal) 24-Vkv-241607:44 URINE ALEX CULTURE-IDENTIFICATN Comments: PATIENT NOT FASTINGPERFORMED BY: [facility] HillPstvje4051 [facility] [id number] Information: [id number] (33919) Result 1 CNSNSS (Abnormal) Comments: Coagulase negative [...] S Urine Final report Culture,Compreh (Abnormal) omer 36-Qrj-132282:10 Urinalysis, Office (03473) UA - LEUKOCYTE ESTERASE Small (Normal) UA - NITRITE Negative (Normal) URINE UROBILINGN JASMINE TIMED Normal mg/dL (Normal) UA - PROTEIN Negative mg/dL (Normal) UA - PH 7 (Normal) UA - BLOOD non-hemolyzed trace (Normal) UA - SPECIFIC GRAVITY 1.015 (Normal) UA - KETONES Negative mg/dL (Normal) UA - BILIRUBIN Negative (Normal) UA - GLUCOSE Negative (Normal) 15-Wjg-790871:16 Basic Metabolic Profile (BMP) Comments: [facility] [address] [place], [address] ; will review at appt GAP 6 [...] 7-18 GLU 87 mg/dL (Normal) Range: 70-110 06-Tzv-219219:25 URINE ALEX CULTURE (JASMINE Comments: PATIENT NOT FASTINGPERFORMED BY: [facility] [facility] [id number] Information: SRC:[facility] [id number] COL COUNT) (08924) Result 1 NG36 (Normal) Comments: No growth in 36 - 48 hours. Urine Culture,Comprehensive Final report (Normal) 55-Klv-502499:44 Urinalysis, Office (32770) UA - LEUKOCYTE ESTERASE Negative (Normal) UA - NITRITE Negative (Normal) URINE UROBILINGN JASMINE TIMED Normal mg/dL (Normal) UA - PROTEIN Negative mg/dL (Normal) UA - PH 6.5 (Normal) UA - BLOOD Hemolyzed Trace (Normal) UA - SPECIFIC GRAVITY 1.010 (Normal) UA - KETONES Negative mg/dL (Normal) UA - BILIRUBIN Negative (Normal) UA - GLUCOSE Negative (Normal) 74-Njo-972287:10 URINE ALEX CULTURE (JASMINE Comments: PATIENT NOT FASTINGPERFORMED BY: [facility] Posjej3046 Kathi BernardThe [facility]er [facility] [id number] Information: SRC:[facility] [id number] COL COUNT) (70368) Antimicrobial MIHEAD (Normal) Comments: S = Susceptible; [...] mL (Abnormal) Urine Final report Culture,Comprehensive (Abnormal) 47-Bmg-443234:24 Urinalysis, Office (38696) UA - LEUKOCYTE ESTERASE Small (Normal) UA [...] 02-Feb-20157:28 Comprehensive Metabolic Profil Comments: Test performed at:[facility] [address] [place], [place] [address] GAP 6 (Normal) Range: 5-15 CO2 29.0 [...] 70-110 :28 Lipid Profile Comments: Test performed at:[facility] [address] [place] [address] ; non-emergent till apt VLDL 18 [...] :35 CBC W/Diff, Automated Comments: Test performed at:[facility] [address] [place] [address] ; non- emergent till apt Absolute [...] Range: 4.4-11.0 :35 CRP Comments: Test performed at:[place] [address] C-REACTIVE PROT 38.60 mg/L (Abnormal) Range: 0.0-3.0 Comments: C-Reactive Protein (CRP) provides useful information for thediagnosis, therapy and monitoring of inflammatory processesand associated diseases. For the evaluation of Relative Riskfor Cardiovascular Dise ase, a High Sensitivity CRP (HSCRP)should be ordered. :35 Culture, Urine Comments: Test performed at:[facility] [address] [place] [address] CUUR See Note (Normal) Comments: Urine CultureCulture exhibits no growth. :35 Erythrocyte Sed Rate Comments: Test performed at:[facility] [address] [place] [address], [place] [address] SED RATE 24 mm/h (Normal) Range: 0-30 49-Ywk-487093:11 URINE ALEX CULTURE-JASMINE COL Comments: PATIENT NOT FASTINGPERFORMED BY: [facility] [id number] Information: SRC:[facility] [id number] COUNT (26957) Result 1 NG36 (Normal) Comments: No growth in 36 - 48 hours. Urine Culture,Comprehensive Final report (Normal) 31-Tap-516558:11 Urinalysis, Office (50127) UA - LEUKOCYTE ESTERASE Small (Normal) UA - NITRITE Negative (Normal) URINE UROBILINGN JASMINE TIMED Normal mg/dL (Normal) UA - PROTEIN Trace mg/dL (Normal) UA - PH 6 (Abnormal) UA - BLOOD non-hemolyzed trace (Normal) UA - SPECIFIC GRAVITY 1.020 (Normal) UA - KETONES Negative mg/dL (Normal) UA - BILIRUBIN Negative (Normal) UA - GLUCOSE Negative (Normal) 10-Lpg-691313:57 V-Zoster IgG (Immunity) Comments: Test performed at:[facility] [address] [place] [address] VZOST IgG 37391 1894 {index} (Normal) Comments: Negative <135 Equivocal 135 - 165 Positive >165A positive result generally indicates exposure to thepathogen or adm inistration of specific immunoglobulins,but it is not indication of active infection or stageof disease.Performed at: [facility] LabCo[address] [id number] Director: Bernardino grady PhD, Phone: [phone]; ADDENDA: has been seen in office since drawn 76-Pmm-28131:48 CBC W/Diff, Automated Comments: Test performed at:[facility] [address] [place] [address] Absolute Lymph 1.40 {X10_3/ul} (Normal) Range: [...] 4.2-5.4 WBC 4.3 K/mm3 (Abnormal) Range: 4.4-11.0 94-Era-85755:48 Comprehensive Metabolic Profil Comments: Test performed at:[facility] [address] [place] [address] GAP 4 (Abnormal) Range: 5-15 CO2 28.0 [...] 70-110 :48 Lipid Profile Comments: Test performed at:[facility] [address] [place], [place] [address] VLDL 14 mg/dL (Normal) Range: 5-40 LDL [...] Thyroid Stim Hormone (TSH) Comments: Test performed at:[facility] [address] [place], [place] [address] TSH 1.57 {uIU/mL} (Normal) Range: 0.358-3.74 09-Mar-20149:23 [...] CHOL 151 mg/dL (Normal) Comments: <200 mg/dL Lgwpvzexe661-672 mg/dL Borderline>240 mg/dL High Risk :23 VZG 2963 {index} (Normal) Comments: Negative <135Equivocal 135 - 165Positive >165A positive result generally indicates exposure to thepathogen or administration of specific immunoglobulins,but it is not indicati on of active infection or stageof disease.Performed at: [address] [id number] Director: Bernardino Camargo PhD, Phone: [phone]; ADDENDA: normal and pt has apt tomorrow [...] CHOL 151 mg/dL (Normal) Comments: <200 mg/dL Jdvxleygz042-034 mg/dL Borderline>240 mg/dL High Risk :17 VITD [...] CHOL 127 mg/dL (Normal) Comments: <200 mg/dL Ytdruicbk753-842 mg/dL Borderline>240 mg/dL High Risk :49 CBCMD [...] CHOL 129 mg/dL (Normal) Comments: <200 mg/dL Odtbrwyat719-520 mg/dL Borderline>240 mg/dL High Risk HDL 48 [...] 250 nm ol/L)Toxicity >100 ng/mL (250 nmol/L)Effective 201225-Jun-201236-Pdc-236598:32 URINE ALEX CULTURE (JASMIEN Comments: PATIENT NOT FASTINGPERFORMED BY: [facility] HillGdcyfc2005 [facility] [id number] Information: SRC:UR [id number] COL COUNT) (47985) Result 1 CNSNSS (Normal) Comments: Coagulase negative [...] S Urine Final report Culture,Comprehensi (Normal) ve 60-Nva-786036:35 Urinalysis, Office (85684) UA - BILIRUBIN Negative (Normal) UA - BLOOD Hemolyzed Large (Normal) UA - GLUCOSE Negative (Normal) UA - KETONES Small mg/dL (Normal) UA - LEUKOCYTE ESTERASE Large (Normal) UA - NITRITE Negative (Normal) UA - PH 7.0 (Normal) UA - PROTEIN 100 mg/dL (Normal) UA - SPECIFIC GRAVITY 1.020 (Normal) URINE UROBILINGN JASMINE TIMED Normal mg/dL (Normal) 1-Wfv-696529:19 Urinalysis, Office (43386) UA - BILIRUBIN Negative (Normal) UA - BLOOD Hemolyzed Trace (Normal) UA - GLUCOSE Negative (Normal) UA - KETONES Negative mg/dL (Normal) UA - LEUKOCYTE ESTERASE Negative (Normal) UA - NITRITE Negative (Normal) UA - PH 7.5 (Normal) UA - PROTEIN Negative mg/dL (Normal) UA - SPECIFIC GRAVITY 1.015 (Normal) URINE UROBILINGN JASMINE TIMED Normal mg/dL (Normal) 1-Rdl-329323:11 URINE ALEX CULTURE-IDENTIFICATN Comments: PATIENT NOT FASTINGPERFORMED BY: [facility] Vuijms2942 [facility] [id number] Information: [id number] (66376) Result 1 NG36 (Normal) Comments: No growth in 36 - 48 hours. Urine Culture,Comprehensive Final report (Normal) 34-Pxi-44059:33 CBCMD RBCM NORM C+C {NORMAL} (Normal) PE [...] 200-240 mg/dL Borderline >240 mg/dL High Risk 98-Sft-56198:33 [facility] UMUC 0 SEEN {/hpf} (Normal) UBAC 0 [...] (Normal) UCLAR Clear (Normal) UCOL Yellow (Normal) 5-Cks-612464:50 RIBS UNIL 2V NO CXR Radiology Report [...] Signed:Mikhail Palencia MDNovember 2011 at 5:31:33 PM [id number] Signed TP/TP If you are the referring physician and would like to consult with theradiologist who provided this inter pretation, please contact Mikhail Palencia MD at [phone]. If this radiologist is unavailable, you will bedirected to another radiologist to assist. If you are a patient with a question regarding this re port, pleasecontactyour referring physician directly. Professional Interpretation Provided By: [facility], Phone , These documents contain legally protected [...] documents. Dictated on 04/08/12 1319 by Mikhail Palencia MDTranscribed on 04/08/12 1737 by ITS IMPORTSign by Mikhail Palencia MD on 04/08/12 1738 Sign by: Mikhail Palencia MD 0-Udw-695481:01 BILAT SCRN DIGITAL & CAD Radiology Report [...] Alonso M.D.March 05, 2012 at 2:05:30 PM [id number] Signed GP/GP If you are the referring physician and would like to consult with theradiologist who provided this interpretation, please contact Yair Wills. at [phone]. If this radiologist is unavailable, youwill be directed to another radiologist to assist. If you are a patient with a question regarding this report, pleasecontactyour referring physician directly. Professional Interpretation Provided By: [facility], Phone , These documents contain legally protected [...] Alonso M.D.March 05, 2012 at 2:52:24 PM [id number] Signed GP/GP If you are the referring physici an and would like to consult with theradiologist who provided this interpretation, please contact Stuart Wills at [phone]. If this radiologist is unavailable, youwill be directed to anot her radiologist to assist. If you are a patient with a question regarding this report, pleasecontactyour referring physician directly. Professional Interpretation Provided By: [facility], Phone , These documents contain legally protected [...] :26 CBCEM Comments: This patient requested that [facility] [employer] send to you acopy of their [...] 7-18 GLU 80 mg/dL (Normal) Range: 70-110 30-Oly-02982:26 DC GIANT PLATELETS (Normal) Comments: This patient requested that [facility] [employer] send to you acopy of their Yearly Employee Health Risk Assessment.A copy of this report is also given to the patient so theycan follow up with your office if they choose. :26 EMP Comments: This patient requested that [facility] [employer] send to you acopy of their Yearly [...] 7-18 GLU 81 mg/dL (Normal) Range: 70-110 10-Hls-53982:26 LIPID Comments: VITD WAS DRAWN YESTERDAY ON [...] Very High > or = 500 mg/dL 61-Vvt-66724:26 UAEM Comments: This patient requested that [facility] [employer] send to you acopy of their [...] (Normal) UCLAR CLEAR (Normal) UCOL YELLOW (Normal) 36-Idd-801566:01 VITD 45.5 ng/mL (Normal) Range: 30.0-100.0 Comments: Vitamin D deficiency has been defined by the [place] of[place] and an Endocrine Society practice guideline as alevel of serum 25-OH vitamin D less than 20 ng/mL (1,2).The Endocrine Society went on to further define vitamin Dinsufficiency as a level between 21 and 29 ng/mL (2).1. IOM ([place]). 2010. Dietary reference intakes for calcium and D. [place]: The National Academies Press.2. Paxton MF, Rojelio NC, Cortney GARIBAY, et al. Evaluation, treatment, and prevention of vitamin D deficiency: an Endocrine Society clinical practice guideline. JCEM. 2010; 96(7): 1911-30.Performed at: [address] [id number] Director: Korin Harris MD, Phone: [phone] 85-Jrb-397280:34 HEPATOBILIARY IMAGING Radiology Report See Note (Normal) [...] radiologist regarding this report, please call our 82B1yekqfbl line @ Dictated on 05/31/11817 by Ehsan Vázquez DOTranscribed on 05/31/112030 by ITS IMPORTSign by Ehsan Vázquez DO on 05/31/112031 Sign by: Ehsan Vázquez DO 80-Jbe-865810:54 TOE(S),MIN 2 VIEWS Radiology Report See Note [...] regarding this rep ort, please call our 46U9qshuruz line @ Dictated on 05/30/11 1150 by ARNEL TORRESTranscribed on 05/30/112228 by ITS IMPORTSign by ARNEL TORRES on 05/30/112229 Sign by: ARNEL TORRES 79-Laa-49212:21 GALLBLADDER Radiology Report See Note (Normal) Comments: [...] no demonstrated gallstones. There is a negativesonographic Bneitez's sign. There is no pericholecystic fluid. Common Bile Duct (C.B.D.): Normal size C.B.D. The common bile ductmeasures 5 mm. Pancreas: Normal size of the head, body and tail of the pancreas.Thereis normal echogenicity of the pancreas. There is no demonstratedpancreatic mass or cyst. Right Kidney: Normal size of the right kidney. The right kidn fypkbklzft45.6 x 4.7 x 4.0 cm. Normal renal [...] 7-18 GLU 76 mg/dL (Normal) Range: 70-110 44-Ljm-526729:02 TROPONIN-I < 0.02 ng/mL (Normal) Comments: TROPONIN-I EXPECTED VALUES <0.05 NEGATIVE 0.06 - 0.59 AT RISK OF FL > OR = 0.60 SUGGEST FL 42-Rnm-98412:11 ANKLE,MIN 3 VIEWS Radiology Report See Note [...] (JASMINE COL Comments: PATIENT NOT FASTINGPERFORMED BY: [facility] HillJpfhgk5210 [facility] [id number] COUNT) (50371) Result 1 NG36 (Normal) Comments: No growth in 36 - 48 hours. Urine Culture,Comprehensive Final report (Normal) :07 Urinalysis, Office (00329) UA - BILIRUBIN Negative (Normal) UA - [...] CHOL 150 mg/dL (Normal) Comments: <200 mg/dL Msapeiwqr271-559 mg/dL Borderline>240 mg/dL High Risk HDL 56 [...] CHOL 150 mg/dL (Normal) Comments: <200 mg/dL Srdrxayol005-795 mg/dL Borderline>240 mg/dL High Risk LDH 160 [...] (Normal) Comments: Result: NEGATIVE COLOR YELLOW (Normal) 20-Rib-483009:10 BILAT SCRN DIGITAL & CAD Radiology See Note Comments: Exam Number: [id number] MAMMOGRAPHY - BILATERAL SCREENING INDICATION:Routine annual screening [...] not delay biopsy of a clinicallysuspicious abnormality.ADDENDUM: [id number] [facility] [place] MAMMOGRAPHY - BILATERAL SCREENING INDICATION:Routine annua l [...] is an addendum to the mammogram on Hreman Leonard dated Jan. The second sentence under findings should read, there arescattered areas of asymmetric parenchymal density throughout bothbreasts.This addendum is being created for the purpose of attach ing a ResultCode to this exam.ADDENDUM: [id number] HPBI/MDS Reported By: GISSELLE GONZALES M.D. 52-Quy-961791:09 DEXA BONE DENSITY STUDY (HP) Radiology Report See Note Comments: Exam Number: [id number] CLINICAL:The patient is a 69-year-old female who is postmenopausal with pasthistory of hormone replacement therapy. History of fracture of F6mrydzb history of osteoporosis EXAMINA (Normal) TION:DUAL ENERGY X-RAY ABSORPTIOMETRY / DEXA. TECHNIQUE:Bone Density Measurements (BMD) of lumbar spine and bilateral hipswere obtained using a [employer] scanner. COMPARISON:March 24 999, October 29, 2002, [...] NIH Osteoporosis and Related Bone Diseases http://www.osteo.org2. [facility] Society for Clinical Densitometryhttp://www.iscd.org3. National Osteoporosis Foundation http://www.nof.org Reported By: GISSELLE GONZALES M.D. 24-Dec-19 VIT D,25 71211 39.0 ng/mL Range: 32.0-100.0 1012:08 (Normal) Comments: Recent studies consider the lower limit of 32.0 ng/mL to isabel threshold for optimal health.Sheng BURNETT. J Nutr. 2004;135(2):317- 22.Performed at: [place] [id number]Lab Director: Korin Harris MD, Phone: [phone] 29-Oct-19 C DIF TOXIN/AG See Note Comments: C. DIFF ANTIGENS NEGATIVE 105:40 (Normal) 82-Lfu-62277:40 CUL STOOL/SHIG SHIGA-TOXIN See Note (Normal) Comments: [...] Crytosporidium parvum,Cyclospora, or Microsporidia.__ TESTING PERFORMED AT [facility]. ORIGINAL REPORT ONFILE IN LAB CONTAINS ADDITIONAL TEST SITE INFORMATION. OVA/ PARASITES EXAM NO OVA, CYSTS, OR PARASITES FOUND. 51-Esd-96521:40 WBC,STOOL See Note (Normal) Comments: FECAL WBCs NONE SEEN 45-Ulf-879997:25 ABDOMEN/PELVIS WITH CONTRAST Radiology Report See Note (Normal) Comments: Exam Number: [id number] CLINICAL:This is a 68-year-old female patient with [...] T PROT 7.7 g/dL (Normal) Range: 6.4-8.2 84-Kls-32371:56 COMPLETE UA BACTERIA RARE {/hpf} (Normal) LEUK [...] SED RATE 48 mm/h (Abnormal) Range: 0-30 65-Juc-031232:55 URINE ALEX CULTURE (JASMINE Comments: PATIENT NOT FASTINGPERFORMED BY: [facility] Xemaid0141 [facility] [id number] Information: SRC:UR [id number] COL COUNT) (17578) Result 1 NG36 (Normal) Comments: No growth in 36 - 48 hours. Urine Culture,Comprehensive Final report (Normal) 95-Yni-014934:20 Urinalysis, Office (97350) UA - LEUKOCYTE ESTERASE Small (Normal) UA - NITRITE Negative (Normal) URINE UROBILINGN JASMINE TIMED 2 mg/dL (Normal) UA - PROTEIN Negative mg/dL (Normal) UA - PH 7.0 (Normal) UA - BLOOD Hemolyzed Trace (Normal) UA - SPECIFIC GRAVITY 1.015 (Normal) UA - KETONES Negative mg/dL (Normal) UA - BILIRUBIN Negative (Normal) UA - GLUCOSE Negative (Normal) 60-Dsx-52197:11 BREAST UNILATERAL US () Radiology Report See Note (Normal) Comments: Exam Number: [id number] CLINICAL:The patient is a 68-year-old female with [...] CHOL 147 mg/dL (Normal) Comments: <200 mg/dL Nuoaoiirs453-295 mg/dL Borderline>240 mg/dL High Risk :03 LIVER ALB 4.2 g/dL (Normal) Range: 3.4-5.0 ALK P 66 U/L (Normal) Range: 50-136 ALT 29 U/L (Normal) Range: 12-78 AST 20 U/L (Normal) Range: 15-37 D BILI 0.09 mg/dL (Normal) Range: 0.00-0.30 T BILI 0.30 mg/dL (Normal) Range: 0.00-1.00 T PROT 7.9 g/dL (Normal) Range: 6.4-8.2 24-Ixt-290192:41 Urinalysis, Office (85146) UA - LEUKOCYTE ESTERASE Trace (Normal) UA [...] Report See Note (Normal) Comments: Exam Number: [id number] CLINICAL: 68-year-old female with knee pain lateral [...] a full thickness radial tear of the project facilitator ior horn of the medial meniscus extending [...] last examination. Reported By: John Alcocer M.D. 6-Grg-372682:24 KNEE,4 OR MORE VIEWS (MT) Radiology Report See Note (Normal) Comments: Exam Number: [id number] CLINICAL:Pain X-RAY EXAMINATION RIGHT KNEE TECHNIQUE:4 view(s) [...] change. Osteopenia. Reported By: ARIADNA PERAZA M.D. 2-Fvx-707410:23 L/S SPINE,MIN 4 VIEWS (MT) Radiology Report See Note (Normal) Comments: Exam Number: [id number] CLINICAL:Low back pain, radiculopathy X-RAY EXAMINATION: LUMBAR [...] acute fracture. Reported By: ARIADNA PERAZA M.D. 9-Tcl-733790:00 EMP URINALYSIS BILIRUBIN URINE SeeNote (Normal) Comments: [...] Range: 0.2 - 1.0 COLOR YELLOW (Normal) 2-Ktt-628428:00 ROUTINE UA BILIRUBIN URINE SeeNote (Normal) Comments: [...] Report See Note (Normal) Comments: Exam Number: [id number] BONE DENSITOMETRY HISTORYOsteopenia. TECHNIQUE Bone densitometry of the lumbar spine and both hips is now beingperformed. The best criteria for evaluation of osteoporosis is theT-value, which represents the comparison of the patient's bone mass leigh expected peak bone mass. For most patients, the mean T-value of D4yqcelwc L4 is used to evaluate the lumbar [...] density is measured at 7.2% less than oi8051.The T-valu e of the right femoral neck is -2 which is in the range ofosteopenia.The T- value of the total right hip is -1.7 which is in the range ofosteopenia. IMPRESSIONThere is osteopenia of the lumbar spine and both hips. Reported By: GISSELLE GONZALES M.D. :54 BREAST UNILATERAL US () Radiology Report See Note (Normal) Comments: Exam Number: [id number] TARGETED LEFT BREAST ULTRASOUND HISTORYAbnormal mammogram. High-resolution [...] Greene's office and the office was called tp3456 hours December 22, 2008. Reported By: GISSELLE GONZALES M.D. 74-Khr-838337:35 [facility] DIAG DIGITAL & CAD Radiology Report See Note (Normal) Comments: Exam Number: [id number] MAMMOGRAM, UNILATERAL LEFT DIAGNOSTIC DIGITAL AND CAD [...] 1992 (MQSA). The mammograms werealso examined w [facility], [facility] computer-aided detection software ([employer], [employer], [employer] Reported By: GISSELLE GONZALES M.D. 93-Sty-263975:30 [facility] DIGITAL & CAD Radiology Report See Note (Normal) Comments: Exam Number: [id number] MAMMOGRAM, BILATERAL SCREENING DIGITAL AND CAD HISTORYRoutine [...] mammograms werealso examined with computer-aided detection software ([employer].). Reported By: GISSELLE GONZALES M.D. 81-Bwr-929420:37 BMP BUN 15 mg/dL (Normal) Range: 7-18 [...] g/dL (Normal) Range: 6.4-8.2 :11 AT3 F/I 82339 AT3 AG, IMMUNOL 131 % (Abnormal) Range: 75-130 AT3 FUNCT 89273 131 % (Normal) Range: 75-135 :11 PROT C 128921 PROT C,[id number] 169 % (Abnormal) Range: 74-151 Comments: Performed At: [address] [id number] PROTEIN C 58946 106 % (Normal) Range: 70-140 :11 PROT S 634513 PROTEIN S, FREE 107 % (Normal) Range: 56-124 PROTEIN S, FUNC 82 % (Normal) Range: 60-145 PROTEIN S,TOTAL 137 % (Normal) Range: 58-150 :38 A-CARDIO 699882 Comments: ORDER ALSO STATES ANTIPHOSPHOLIPIDS, WHICH IS [...] mm/h (Normal) Range: 0-30 :38 FAC II 374521 Comments: ORDER ALSO STATES ANTIPHOSPHOLIPIDS, WHICH IS A SYNONYM OFANTICARDIOLIPIN FACTOR II,DNA Comment (Normal) Comments: NEGATIVENo mutation identified.Comment:A point mutation (I86812G) in the Factor II (prothrombin)gene is the [...] protein C and protein S. :38 FACVL 079785 Comments: ORDER ALSO STATES ANTIPHOSPHOLIPIDS, WHICH IS [...] , elevatedhomocysteine levels, or a Factor II/prothrombin mutation(K28440S). Contact you r local [facility] for information [...] Range: 0.2 - 1.0 :48 Urinalysis, Office (30361) UA - BILIRUBIN Negative (Normal) UA - BLOOD Negative (Normal) UA - GLUCOSE Negative (Normal) UA - KETONES Negative mg/dL (Normal) UA - LEUKOCYTE ESTERASE Trace (Normal) UA - NITRITE Negative (Normal) UA - PH 6.5 (Normal) UA - PROTEIN Negative mg/dL (Normal) UA - SPECIFIC GRAVITY 1.005 (Normal) URINE UROBILINGN JASMINE TIMED 2 mg/dL (Normal) 6-Xqz-782621:04 BILAT SCRN DIGITAL & CAD Radiology Report See Note (Normal) Comments: Exam Number: [id number] MAMMOGRAM, BILATERAL SCREENING DIGITAL AND CAD HISTORYRoutine [...] werea lso examined with computer-aided detection software ([employer].). Reported By: GISSELLE GONZALES M.D. 9-Jon-557836:41 DEXA BONE DENSITY STUDY (HP) Radiology Report See Note (Normal) Comments: Exam Number: [id number] BONE DENSITOMETRY HISTORYOsteopenia. TECHNIQUE Bone densitometry of [...] density is measured at 0.2% less than zu2684 and 0.1% more than in 2006. IMPRESSIONThere [...] (Normal) Range: 110-1050 NORMETANEPH,UR 194 ug/L (Normal) 45-Del-03785:00 VMA,U24 4143 Comments: DATE STARTED 05/12/07, TIME STARTED 0600DATE ENDED 05/13/07, TIME ENDED 06 VMA,24UR 5.3 {mg/24_hr} (Normal) Range: 1.8-6.7 Comments: Performed At: [address] [id number] VMA,UR 3.4 mg/L (Normal) :16 ALDOST,U24 4291 Comments: 24 H URINE TV = 2580 ML ALDOSTERONE,U24 3 {ug/24_hr} (Normal) Range: 2-21 Comments: 1 mo. 1 - 11 1- 12 mos. 1 - 22 1- 16 yrs. 2 - 16 Adult Ranges Normal diet 2 - 21 Low salt 17 - 44 High salt 0 - 14Performed At: [address] [id number] ALDOSTERONE,UR 1 ug/L (Normal) 23-Hus-721398:17 BRAIN/HEAD W/WO CONTRAST Radiology Report See Note (Normal) Comments: Exam Number: [id number] CT SCAN OF BRAIN HISTORYHeadache. Scans were [...] ethmoid sinusitis. Reported By: GISSELLE GONZALES M.D. 93-Hgl-47093:51 CBC With Differential/Platelet Comments: PERFORMED BY: [facility] Mmxakz0238 [facility] [id number] Baso (Absolute) 0.1 {x10E3/uL} (Normal) Range: 0.0-0.2 [...] Comp. Metabolic Panel (14) Comments: PERFORMED BY: [facility]6370 [facility] [id number] A/G Ratio 1.5 (Normal) Range: 1.1-2.5 Albumin, [...] Sedimentation 4 mm/h (Normal) Comments: PERFORMED BY: [facility] HillSczsvz9029 [facility] [id number] :51 Rate-Westergren Range: 0-30 9-Cgh-094173:29 CULTURE, URINE URINE CULTURE See Note {CFU/mL} (Normal) Comments: COLONY COUNT >100,000 ORGANISM 1: ENTEROCOCCUS FAECALIS ENTEROCOCCUS FAECALIS: REACTION CIPROFLOXACIN GP $$$ <=0.5 S LEVOFLOXAC IN $$ <=1 S NITROFURANTOIN $ <=32 S PENICILLIN G (ENTEROCOCCUS) $$ 2 S TETRACYCLINE $$ <=1 S VANCOMYCIN $$ <=0.5 S 7-Yia-552390:29 ROUTINE UA BILIRUBIN URINE SeeNote (Normal) Comments: [...] tissue mass Soft tissue mass : Reviewed Packer Operator Automatic Letter Indication: Soft tissue mass Gastroesophageal reflux [...] EASY BRUISABILITY OF SKIN Planned Observations TSH (92810)Indication: Hypercholesterolemia On: :41 Request URINALYSIS, W/ MICRO (65378)Indication: Essential hypertension On: Request MICROALBUMIN: CREATININE RATIO (09579) AND (52970)Indication: Essential hypertension On: :41 Request METABOLIC PANEL, COMPREHENSIVE (97031)Indication: Essential hypertension On: Request LIPOPROTEIN, BLD, BY NMR (24687)Indication: Hypercholesterolemia On: Request CBC W/AUTO DIFF WBC (32744)Indication: Essential hypertension On: :41 Request TSH (11181)Indication: Hypercholesterolemia On: :51 Request URINALYSIS, W/ MICRO (41981)Indication: Essential hypertension On: :51 Request MICROALBUMIN: CREATININE RATIO (41091) AND (39681)Indication: Essential hypertension On: :51 Request METABOLIC PANEL, COMPREHENSIVE (31986)Indication: Essential hypertension On: :51 Request LIPID PANEL (46739)Indication: Essential hypertension On: :51 Request CBC W/AUTO DIFF WBC (92916)Indication: Essential hypertension On: :51 Request Metabolic Panel, Basic (46947)Indication: Essential hypertension On: 78-Opy-324853:32 Request Comments: 2 weeks Vitamin D Hydroxy (85367)Indication: Osteopenia On: :23 Request URINALYSIS, W/ MICRO (65332)Indication: Essential hypertension On: :23 Request CBC W/AUTO DIFF WBC (50049)Indication: Essential hypertension On: :23 Request METABOLIC PANEL, COMPREHENSIVE (11109)Indication: Essential hypertension On: :23 Request LIPID PANEL (74641)Indication: Hypercholesterolemia On: :22 Request SED RATE ERYTHROCYTE (30790)Indication: Abdominal pain, acute, generalized On: :47 Request C-REACTIVE PROTEIN (73934)Indication: Abdominal pain, acute, generalized On: :47 Request CBC with auto diff (04036)Indication: Abdominal pain, acute, generalized On: :46 Request LIPID PANEL (56976)Indication: Hypercholesterolemia On: :27 Request METABOLIC PANEL, COMPREHENSIVE (48768)Indication: Essential hypertension On: 8-Uoi-824389:26 Request VARICELLA-ZOSTER ANTBODY (65504)Indication: Hypercholesterolemia On: 82-Orz-208072:58 Request TSH (68157)Indication: Anxiety associated with depression On: 57-Ryx-386716:12 Request LIPID PANEL (60130)Indication: Hypercholesterolemia On: 18-Rxr-932867:12 Request CBC W/AUTO DIFF WBC (42325)Indication: Essential hypertension On: 84-Rhf-751373:12 Request METABOLIC PANEL, COMPREHENSIVE (23721)Indication: Essential hypertension On: 78-Meo-132475:12 Request VARICELLA-ZOSTER ANTBODY (73223)Indication: screen On: 22-Bkq-958974:59 Request CBC WITH MANUAL DIFF (53091)Indication: Essential hypertension On: 20-Qrj-580076:59 Request LIPID PANEL (10420)Indication: Hypercholesterolemia On: 68-Mym-220636:58 Request METABOLIC PANEL, COMPREHENSIVE (32983)Indication: Essential hypertension On: 89-Hqz-975995:58 Request Vitamin D Hydroxy (62190)Indication: Osteopenia On: :33 Request METABOLIC PANEL, COMPREHENSIVE (34492)Indication: Essential hypertension On: :33 Request LIPID PANEL (08226)Indication: Hypercholesterolemia On: :33 Request METABOLIC PANEL, COMPREHENSIVE (60549)Indication: Essential hypertension On: 36-Vkd-27788:57 Request LIPID PANEL (46739)Indication: Hypercholesterolemia On: 71-Fcb-40642:56 Request Vitamin D Hydroxy (61722)Indication: Anxiety associated with depression On: :51 Request CBC WITH MANUAL DIFF (08277)Indication: Essential hypertension On: :51 Request METABOLIC PANEL, COMPREHENSIVE (17920)Indication: Essential hypertension On: :51 Request TSH (62488)Indication: Anxiety associated with depression On: :51 Request LIPID PANEL (02188)Indication: Hypercholesterolemia On: :50 Request CBC WITH MANUAL DIFF (96058)Indication: Essential hypertension On: :30 Request METABOLIC PANEL, COMPREHENSIVE (32149)Indication: Essential hypertension On: : Request LIPID PANEL (91158)Indication: Hypercholesterolemia On: : Request URINALYSIS, W/ MICRO (79036)Indication: Essential hypertension On: :08 Request CBC WITH MANUAL DIFF (64700)Indication: Essential hypertension On: :08 Request METABOLIC PANEL, COMPREHENSIVE (62178)Indication: Essential hypertension On: 17-Yqz-425797:06 Request LIPID PANEL (92553)Indication: Hypercholesterolemia On: :06 Request LIPID PANEL (04013)Indication: Hypercholesterolemia On: :28 Request CBC WITH MANUAL DIFF (24230)Indication: Essential hypertension On: :28 Request METABOLIC PANEL, COMPREHENSIVE (24295)Indication: Essential hypertension On: :28 Request METABOLIC PANEL, COMPREHENSIVE (42160)Indication: Essential hypertension On: :48 Request Vitamin D Hydroxy (18797)Indication: Depression On: :48 Request LIPID PANEL (48944)Indication: Hypercholesterolemia On: :47 Request CBC WITH MANUAL DIFF (31338)Indication: Other chest pain On: :19 Request METABOLIC PANEL, COMPREHENSIVE (56465)Indication: Other chest pain On: :18 Request ASSAY, TROPONIN, QUANTITATIVE (aka Troponin I) (19164)Indication: Other chest pain On: 13-Aaw-536389:18 Request Comments: stat CALCIFEDIOL (15855)Indication: Eczema (Renamed from Dermatitis, eczematoid) On: 84-Hcq-057760:34 Request OVA & PARASITE DIR SMEAR (84299)Indication: Diarrhea (Renamed from D (diarrhea)) On: 72-Cqe-213444:11 Request LEUKOCYTE COUNT, FECAL (25212)Indication: Diarrhea (Renamed from D (diarrhea)) On: 56-Hmc-654013:10 Request C.Difficile, Stool (08782)Indication: Diarrhea (Renamed from D (diarrhea)) On: 99-Ada-789269:10 Request ALEX CULTURE-STOOL (05686)Indication: Diarrhea (Renamed from D (diarrhea)) On: 58-Fas-203772:10 Request SED RATE ERYTHROCYTE (77549)Indication: Abdominal pain, acute, left lower quadrant On: 01-Xff-127855:10 Request C-REACTIVE PROTEIN (17155)Indication: Abdominal pain, acute, left lower quadrant On: 00-Bmj-025151:10 Request URINALYSIS, W/ MICRO (44511)Indication: Abdominal pain, acute, left lower quadrant On: 49-Zsi-737992:10 Request METABOLIC PANEL, COMPREHENSIVE (09201)Indication: Abdominal pain, acute, left lower quadrant On: 48-Wjk-090611:10 Request CBC WITH MANUAL DIFF (90810)Indication: Abdominal pain, acute, left lower quadrant On: 21-Mnz-721954:10 Request METABOLIC PANEL, COMPREHENSIVE (43616)Indication: Essential hypertension On: 18-Vvl-253413:47 Request HEPATIC FUNCTION PANEL (21042)Indication: Hypercholesterolemia On: 64-Oaa-524205:47 Request LIPID PANEL (84139)Indication: Hypercholesterolemia On: 47-Mfi-059468:47 Request Vitamin D Hydroxy (67316)Indication: Osteopenia On: 19-Mkd-010724:46 Request LIPID PANEL (07973)Indication: Hypercholesterolemia On: 10-Mar-20098:38 Request HEPATIC FUNCTION PANEL (28604)Indication: Hypercholesterolemia On: :38 Request Metabolic Panel, Basic (23543)Indication: DISORDERS, ORGANIC, SLEEP RELATED LEG CRAMPS On: 80-Chh-497088:17 Request URINALYSIS W/O MICRO (92260)Indication: Essential hypertension On: :48 Request TSH (56204)Indication: Essential hypertension On: 8-Nlu-488789:48 Request METABOLIC PANEL, COMPREHENSIVE (17176)Indication: Essential hypertension On: :48 Request CBC WITH MANUAL DIFF (63517)Indication: Essential hypertension On: :48 Request LIPID PANEL (19089)Indication: Hypercholesterolemia On: :48 Request CBC WITH MANUAL DIFF (00447)Indication: Anemia, unspecified On: :51 Request LIPID PANEL (04997)Indication: Hypercholesterolemia On: :31 Request HEPATIC FUNCTION PANEL (92616)Indication: Hypercholesterolemia On: :41 Request LIPID PANEL (65549)Indication: Hypercholesterolemia On: :41 Request SED RATE ERYTHROCYTE (93933)Indication: Headache (Renamed from Cephalalgia) On: :40 Request METABOLIC PANEL, COMPREHENSIVE (12765)Indication: Headache (Renamed from Cephalalgia) On: :39 Request CBC WITH MANUAL DIFF (95606)Indication: Headache (Renamed from Cephalalgia) On: :39 Request CBC WITH MANUAL DIFF (66912)Indication: EASY BRUISABILITY OF SKIN On: :59 Request PTT (ACTIVATED PARTIAL THROMBOPLASTIN TIME) (32409)Indication: EASY BRUISABILITY OF SKIN On: :59 Request PT (PROTHROMBIN TIME) (08413)Indication: EASY BRUISABILITY OF SKIN On: :59 Request HEPATIC FUNCTION PANEL (98751)Indication: Hypercholesterolemia On: :54 Request LIPID PANEL (05782)Indication: Hypercholesterolemia On: :54 Request Planned Encounters Medical; 4 Month FU - On: 16-Aug-2018 10:00 [facility] Catrina Perry DO, DO, Kathleen Planned Procedures CT OF NECK WITHOUT THEN WITH On: 09-Apr-2018 Intent INTRAVENOUS CONTRAST (26519)By: Comments: include thyroid Acacia Whaley CNP Ultrasound - ThyroidBy: Jovana OJEDA, On: 09-Apr-2018 Intent Acacia Wang Comments: attetion soft tissue rt side of neck Flu Vaccine (Quadrivalent) 23820Bx: On: 13-Mar-2018 Intent Ladi Max Comments: Lot #[id number]-L dltd, IMDose prefilled syringegiven by:SABINA Mclain reviewed and ABN signed FLAT PLATE (67091)By: Jovana OJEDA, On: 19-Dec-2017 Intent Lori ELECTROCARDIOGRAM, COMPLETE (ECG) On: 12-Dec-2017 Intent (12441)By: Catrina Perry DO Comments: nsr no acute chg Catrina Perry DO Bone Density StudyBy: Tessie Greene DO On: 10-May-2015 Intent A Comments: screening ADMINISTRATION OF INFLUENZA VIRUS On: 05-Feb-2015 Intent VACCINE (G0008)By: Tessie Greene DO Flu Vaccine (Quadrivalent) 94566Xz: On: 05-Feb-2015 Intent Tessie Greene DO Comments: Lot:[id number]:09/01/15Dose:0.5mLRoute:IMSite:L DltdGiven By:MARTY signed MAMMOGRAM, SCREENING, BOTH BREAST On: 05-Feb-2015 Intent (24214)By: Tessie Greene DO Comments: nov DEXA SCAN AXIAL SKELETON (53666)By: On: 05-Feb-2015 Intent Tessie Greene DO Comments: nov Solu -Medrol Injection, 125 mg On: 09-Dec-2014 Intent (J2930)By: Jovana OJEDA Acacia Wang Comments: lot:[id number]:route:IMdose:125MGsite: R glutGiven by: ROSANGELA Gamble MAMMOGRAM, SCREENING, BOTH BREAST On: 13-Mar-2014 Intent (37231)By: Tessie Greene DO ADMINISTRATION OF INFLUENZA VIRUS On: 13-Mar-2014 Intent VACCINE (G0008)By: Tessie Greene DO FLU VAC, SPLIT, >3 YEARS, INTRAMUSC On: 13-Mar-2014 Intent (79494)By: Tessie Greene DO Comments: lot: [id number]: 12-01-13site/route: L del/IMamt: 0.5mLVIS signed when applicableROSANGELA Villa Eprescribed prescriptions (G8553)By: On: 16-Sep-2013 Intent Tessie Greene DO Eprescribed prescriptions (G8553)By: On: 18-Mar-2013 Intent Libby Herndon FLU VAC, SPLIT, >3 YEARS, INTRAMUSC On: 20-Feb-2013 Intent (59657)By: Fallon Carranza Comments: Lot:[id number]:Dose:0.5mLRoute:IMSite:L DltdGiven By:AGAVIS signed IMMUNIZ ADMNIN, 1 VAC, SNGL/COMBO On: 20-Feb-2013 Intent (84435)By: Fallon Carranza MAMMOGRAM, SCREENING, BOTH BREASTS On: 31-Dec-2012 Intent (17009)By: Tessie Greene DO Eprescribed prescriptions (G8553)By: On: 11-Nov-2012 Intent Libby Herndon Eprescribed prescriptions (G8553)By: On: 23-Sep-2012 Intent Libby Herndon EKG (54849)By: Libby Herndon On: 21-Aug-2012 Intent Comments: ekg showed normal sinus rhythym, normal axis, no acute st/t wave changes Eprescribed prescriptions (G8553)By: On: 25-Jun-2012 Intent Tayna Bermudez LPN PNEUM VAC ADLT/IMUMNOSPR, SBC/INTRM On: 03-May-2012 Intent (92848)By: Tessie Greene DO Comments: Lot:[id number]:08-06-Dose:0.5mLRoute:IMSite:L armGiven By:AGA ADMINISTRATION OF PNEUMOCOCCAL On: 03-May-2012 Intent VACCINE (G0009)By: Tessie Greene DO Eprescribed prescriptions (G8553)By: On: 03-May-2012 Intent Libby Herndon Mekablueu-Ssn-Kkhvz (29952)By: Ciesa On: 08-Apr-2012 Intent Acacia OJEDA DXA, BONE DENSITY, AXIAL SKELETON On: 30-Jan-2012 Intent (25667)By: Tessie Greene DO MAMMOGRAM, SCREENING, BOTH BREASTS On: 30-Jan-2012 Intent ([id number])By: Tessie Greene DO IMMUNIZ ADMNIN, 1 VAC, SNGL/COMBO On: 30-Jan-2012 Intent ([id number])By: Megan Phillips LPN Comments: Lot/Exp: [id number], 11/2011Given in [facility], IMPrefilled SyringeBy ROEL Guzman FLU VAC, SPLIT, >3 YEARS, INTRAMUSC On: 30-Jan-2012 Intent ([id number])By: Megan Phillips LPN Breast Screening - BilateralBy: [...] DO, Tessie A On: 01-May-2011 Intent EKG ([id number])By: Libby Herndon On: 01-May-2011 Intent Comments: ekg showed normal sinus rhythym, normal axis, no acute st/t wave changes poor r wave progression unchanged TDAP VACCINE >7 IM ([id number])By: On: 01-May-2011 Intent Libby Herndon Comments: work FLU VAC, SPLIT, >3 YEARS, INTRAMUSC On: 01-May-2011 Intent ([id number])By: Libby Herndon Comments: work DXA, BONE DENSITY, AXIAL SKELETON On: 09-Feb-2011 Intent ([id number])By: Monserrat Granado LPN MAMMOGRAM, SCREENING, BOTH BREASTS On: 09-Feb-2011 Intent ([id number])By: Monserrat Granado LPN Radiology - Ankle - LeftBy: Ciesa On: 14-Dec-2010 Intent Acacia OJEDA Comments: call wet read to Acacia Whaley Eprescribed prescriptions ([id number])By: On: 15-Nov-2010 Intent Fast DO, Tessie A CT - Abdomen & PelvisBy: Fast DO, On: 26-Oct-2009 Intent Tessie A Comments: tomorrow call wet read EKG ([id number])By: Libby Herndon On: 30-Aug-2009 Intent Comments: do [...] BROUSSARD, On: 07-Jun-2007 Intent Tessie Soler EKG ([id number])By: Tessie Greene DO On: 28-Apr-2007 Intent Comments: ordered to be done at the hospital CT - Brain/HeadBy: Tessie Greene DO On: 20-Mar-2007 Intent Comments: with and without contrast- please do stat and call wet read IMMUNIZ ADMNIN, 1 VAC, SNGL/COMBO On: 04-Apr-2006 Intent ([id number])By: Libby Herndon PNEUM VAC ADLT/IMUMNOSPR, SBC/INTRM On: 04-Apr-2006 Intent ([id number])By: Libby Herndon Comments: Lot #:Expiration date:Amount given:Route: IMSite given:LEFT DELTOIDGiven by: EDILMA Weinberg IMMUNIZ ADMNIN, 1 VAC, SNGL/COMBO On: 04-Apr-2006 Intent ([id number])By: Tessie Greene DO PNEUM VAC ADLT/IMUMNOSPR, SBC/INTRM On: 04-Apr-2006 Intent ([id number])By: Tessie Greene DO Planned Medications INJECTION, METHYLPREDNISOLONE [...] The patient does have durable power of deputy commonwealth's attorney and living will. The patient has noticed [...] The patient does have durable power of deputy commonwealth's attorney and living will. The patient has noticed nothing from the geriatic depre ssion scale. Other providers contributing to the patient's care are other: (hearing and eye drLatrell herrera and Dr. Zamora). 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 Nichole at [facility]). 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
--- OUTSIDE RECORDS SUMMARY | 2018-08-24 15:37 | XMS RPT_ITS | Continuity of Care Document ---
:1940 External Reference #:[id number] Author Organization [facility] Address [address] [place] [address] Phone Care Team Providers Name Role Phone Catrina Perry DO Unavailable Ricardo Rollins MD Unavailable Dr. Addison Kimball Unavailable Poly Bunn Unavailable [facility] PLASCENCIA, Dr. Janes Dougherty Unavailable Winter, Ladi Unavailable Unavailable Sadia Goel Unavailable Unavailable Libby Herndon Unavailable Unavailable Fallon Carranza Unavailable Unavailable Sales Representative Advertising, System Unavailable Unavailable Carolin Garber LPN Unavailable [...] Citalopram Hydrobromide 20 MG Oral Tablet 1 qd for 0 [...] Oral Tablet Extended Release 24 Hour 1 qd for 0 days Refills: 0 Ordered:09-May-2018 Nick Perry DO, DO, Kathleen Start : 09-May-2018 Active MULTIVITAMIN (Oral Liquid) for 0 days Refills: 0 Ordered:31-Dec-2017 Slarb PIPELINE ENGINEER, AngelaActive Omeprazole 20 MG Oral Capsule Delayed Release [...] Quantity: 30 {Tablet} Refills: 0 Ordered:30-Jan-2012 Long PIPELINE ENGINEER, L Start : 14-Dec-2010 End : 30-Jan-2012 Inactive SAI-D 12 HOUR, 60-120MG (Oral Tablet Extended Release 12 Hour) 1 Tablet ER 12HR bid for 5 days Quantity: 12 {Tablet_ER_12HR} Refills: 0 Ordered:08-Aug-2010 Nick Perry DO, DO, Kathleen Start : 23-Jun-2010 End : 28-Jun-2010 Inactive ASTEPRO, 0.15% (Nasal Solution) 2 (two) Puff(s) daily for 0 days Quantity: 1 {Suppository(ies)} Refills: 0 Ordered:30-Jan-2012 Alan SEVILLAMegan Start : 11-Jul-2011 End : 30-Jan-2012 Inactive [...] Quantity: 20 {Tablet} Refills: 0 Ordered:06-Aug-2012 BETTE Ewdards Start : 25-Jun-2012 End : 06-Aug-2012 Inactive [...] days Quantity: 21 {Tablet} Refills: 0 Ordered:09-Dec-2014 Deepajuju RUSTYAcacia Start : 09-Dec-2014 End : 16-Dec-2014 Inactive [...] days Quantity: 30 {Tablet} Refills: 0 Ordered:07-Sep-2010 Cristine Barrett LPN Start : 19-Aug-2010 End : 07-Sep-2010 Inactive Comments:thrity VICODIN, 5-500MG (Oral Tablet) 1-2 Tablet q 6 prn for 0 days Quantity: 30 {Tablet} Refills: 0 Ordered:14-Dec-2010 Cristine Barrett LPN Start : 19-Aug-2010 End : 14-Dec-2010 Inactive [...] days Quantity: 90 {Capsule_DR} Refills: 3 Ordered:30-Jan-2012 Tessie Greene DO Start [...] Result: Comments: See Note; NOTES: [facility] Imaging Services [address] [place] [address] Soft Tissue Neck WITH Contrast MR#: [id number] Acct: [id number] Name: HERMAN LEONARD Rep #: [id number] : 1940 F 77 From: Michael Alonso MD PCP: Catrina Perry DO Status: REG CLI Study: Soft Tissue Neck WITH Contrast Date of Exam: 04/10/18 Exam# [id number] Ordering Dr: Acacia Whaley STUDY: CT SOFT [...] FINDINGS: Normal bilateral parotid glands. Normal bilateral process safety engineering technologist spaces. Normal bilateral parapharyngeal spaces. Normal bilateral [...] Alonso MD 04/10 at 15:37 EST Tel [phone], Service support , CC: Acacia Whaley MACHINE ADJUSTER LEADER CASE TRIM; Catrina Perry DO Beater Worker Helper: Signed 10-Apr-2018 Soft Tissue Neck WITH Contrast Result: Comments: See Note; NOTES: [facility] Imaging Services [address] [place] [address] Soft Tissue Neck WITH Contrast MR#: [id number] Acct: [id number] Name: HERMAN LEONARD Rep #: [id number] : 1940 F 77 From: Michael Alonso MD PCP: Catrina Perry DO Status: [facility] CLI Study: Soft Tissue Neck WITH Contrast Date of Exam: 04/10/18 Exam# [id number] Ordering Dr: Acacia Whaley P-C ADDENDUM by [...] Michael Alonso MD at 8:47 EST Tel [phone], Service support , 04/11/18 0847 Date cc [...] FINDINGS: Normal bilateral parotid glands. Normal bilateral process safety engineering technologist spaces. Normal bilateral parapharyngeal spaces. Normal bilateral [...] Michael Alonso MD at 15:37 EST Tel [phone], Service support , CC: Acacia Whaley NP; Catrina Perry DO Beater Worker Helper: Signed 09-Apr-2018 Thyroid Result: Comments: See Note; NOTES: [facility] Imaging Services [address] [place] [address] Thyroid MR#: [id number] Acct: [id number] Name: HERMAN LEONARD Rep #: [id number] : [birth year] F 77 From: Michael Alonso MD PCP: Catrina Perry DO Status: REG CLI Study: Thyroid Date of Exam: 04/09/18 Exam# [id number] Ordering Dr: Acacia Whaley MACHINE ADJUSTER LEADER CASE TRIM-C STUDY: THYROID ULTRASOUND REASON FOR EX AM: [...] Alonso MD at 15:[address] Tel [phone], Service support , CC: Acacia Whaley NP; Catrina Perry DO Beater Worker Helper: Signed 19-Dec-2017 Abdomen Single View Result: Comments: See Note; NOTES: [facility] Imaging Services [address] [place] [address] Abdomen Single View MR#: [id number] Acct: [id number] Name: HERMAN LEONARD Rep #: [id number] D OB: 1940 F 76 From: Chris Rachel MD PCP: Catrina Perry DO Status: REG CLI Study: Abdomen Single View Date of Exam: 12/19/17 Exam# [id number] Ordering Dr: Acacia Whaley STUDY: X-RAY - [...] , Service support , CC: Acacia Whaley MACHINE ADJUSTER LEADER CASE TRIM; Catrina Perry DO Beater Worker Helper: Signed 20-May-2015 Dexa Bone Density Study (HP) Result: Comments: See Note; NOTES: [facility] Imaging Services [address] [place] [address] Verdana 4d Dexa Bone Density Study (HP) MR#: [id number] Acct: [id number] Name : HERMAN LEONARD Rep #: [id number] : 1940 F 74 From: Michael Alonso MD PCP: Tessie Greene DO Status: REG CLI Study: Dexa Bone Density Study (HP) Date of Exam: 05/20/15 Exam# [id number] Orderi rommel Dr: Tessie Greene DO STUDY: DUAL ENERGY [...] Michael Alonso MD at 10:30 EST Tel [phone], Service support [phone], CC: Jailyn Yang MD; Tessie Greene DO Beater Worker Helper: Signed 06-Apr-2015 Bilat Scrn Digital AND CAD Result: Comments: See Note; NOTES: [facility] Imaging Services [address] [place] [address] Verdana 4d Bilat Scrn Digital AND CAD MR#: [id number] Acct: [id number] Name: HERMAN LEONARD Rep #: [id number] : 1940 F 74 From: Michael Alonso MD PCP: Tessie Greene DO Status: REG CLI Study: Bilat Scrn Digital AND CAD Date of Exam: 04/06/15 Exam# [id number] Ordering D r: Tessie Greene DO MAMMOGRAPHY [...] Michael Alonso MD at 7:54 EST Tel [phone], Service support [phone], CC: Tessie Greene DO Beater Worker Helper: Signed 05-Feb-2015 EKG (01967) Comments: ekg showed normal sinus rhythym, normal axis, no acute st/t wave changes Result: [MEASUREMENTS ANALYSIS] Date of Test: 02/05/2015 09:47:50; Heart Rate: 58; MS Interval: 156; QRS: 93; QT Interval: 420; Corrected QT Interval (QTc): 417; P [place]: 31; QRS [place]: 31; T [place]: 44; Blood Pressure: 122/84 [ECG DIAGNOSTIC STATEMENTS] Date of Test: 02/05/2015 09:47:50; Summary: Sinus Bradycardia WITHIN NORMAL LIMITS 27-Mar-2014 Bilat Scrn Digital & CAD Result: Comments: See Note; NOTES: [facility] Imaging Services [address] [place] [address] Breast Imaging Report MR#: [id number] Acct: [id number] Name: HERMAN LEONARD Rep #: [id number] : 1940 F 73 From: Michael Alonso MD PCP: Tessie Greene DO Status: REG CLI Exam# [id number] Ordering Dr: Tessie Greene DO MAMMOGRAPHY - [...] Michael Alonso MD at 9:36 EDT Tel [phone], Service support [phone], CC: Tessie Greene DO Beater Worker Helper: Signed 26-Mar-2013 Bilat Scrn Digital & CAD Result: Comments: See Note; NOTES: [facility] Imaging Services [address] [place] [address] Breast Imaging Report MR#: [id number] Acct: [id number] Name: HERMAN LEONARD Rep #: [id number] : 1940 F 72 From: Michael Alonso MD PCP: Tessie Greene DO Status: REG CLI Exam# [id number] Ordering Dr: Fast, Tessie DO MAMMOGRAPHY - BILATERAL SCREENING REASON FOR [...] March 26, 2013 at 2:33:33 PM EDT [phone] Electronically Signed GP/GP If you are the referring physician and would like to consult with the radiologist who pr ovided this interpretation, please contact Michael Alonso M.D. at [phone]. If this radiologist is unavailable, you will be directed to another radiologist to assist. If you are a patient w ith a question regarding this report, please contact your referring physician directly. Professional Interpretation Provided By: [email or web address], Phone , These documents contain legally protected [...] of these documents. CC: Tessie Greene DO Beater Worker Helper: Signed Immunization Name Dates Details Pneumococcal (2 years and up) on: 04-Apr-2006 Pneumococcal (2 years and up) on: 04-Apr-2006 Comments: Lot #:Expiration date:Amount given:Route: IMSite given:LEFT DELTOIDGiven by: JESSICA Weinberg Family History Unknown Family Member Name Dates Details Father Comments: [place] Status: Active Mother Comments: CHF Status: Active Paternal Grandmother Comments: ABD CA Status: Active Social History Name Dates Details Alcohol Use Comments: Occasional alcohol use Status: Active Non Smoker/No Tobacco Use Status: Active Tobacco use: Never smoker. Status: Active Smoking Status Name Dates Details Never smoker Vital Signs Date Test Result Details :44 Temperature 97.3 f Comments: Method: Temporal Pulse [...] 0.00 cm Results Date Description Value Details 51-Rhg-89208:00 ASP DONE IN LAB See Note (Normal) Comments: [facility] [address] [place], [address] Comments: Patient: HERMAN LEONARD : 1940 (77/F) Acct Num: [id number] Phys: Ria PLASCENCIA,[place] Unit Num: [id number] Loc: LAB Specimen: [id number] Received: 04/17/181237 Spec Type: ASP HERE TISSUES 1 TISSUES: Neck, NOS COMMENT The specimen is evaluated at the time of FNA by Dr. Arellano. Immediate Evaluation = Macrophages consistent with benign cyst c ontents. The specimen contains macrophages, degenerating cellular debris and amorphous proteinaceous material. The lesion may represent a degenerating cyst. Clinical correlation is suggested. Yimi tee been reviewed in consultation with Dr. Hernandez who concurs with the abovediagnosis. IDC:SJ CYTOLOGY GROSS Received is 0.5 ml of reddish fluid labeled with the patient's name, and designated Right neck mass. 5 imprints and 3 paps are made from the submitted fluid and the rest is added to CytoLyt for cell block preparation. Submitted for cytology study. TC: 5 CPT: 21616, 122826, 38178 , 80845 CYTOLOGY STUDY Slides are reviewed. DIAGNOSIS CYTOLOGY Fine needle aspiration, right neck mass (smear, cell block): Negative for malignant cells. See comment. AM:sp 04/18/18 HEADER OPERATION: FNA, right neck mass PRE-OP DIAGNOSIS: Right neck mass TISSUE SUBMITTED: Right neck mass Signed Janes Adan 04/18/18 <signature on file> 5-Kwx-645267:47 CREATININE FINGERSTICK Comments: [facility] [address] [place] [address] EGFR WB > 60.0000 mL/min (Normal) CREATININE WB 0.8 mg/dL (Normal) Range: 0.55-1.02 :40 Bilirubin, Direct Comments: Order Date: 03/13/17Order Info: [id number] - *Hepatic Function PanelOrder Info: [id number] - *Lipid Profile CC PCPComments: 12 hours fasting, may have water.DR PÉREZ ORDERED LIPID/LIVERDR VICKY ORDERED TS H/CBCD/LIPID/CMP/UA/[facility] [address] [place], [address] D BILI 0.11 mg/dL (Normal) Range: 0.00-0.30 :40 CBC W/Diff, Automated Comments: DR PÉREZ ORDERED LIPID/LIVERDR PERRY ORDERED TSH/CBCD/LIPID/CMP/UA/[facility] [address] [place], [address] SMEAR COMMENT SCANNED (Normal) Absolute Lymph [...] 4.2-5.4 WBC 5.8 K/mm3 (Normal) Range: 4.4-11.0 38-Gqy-01028:40 [facility] Comments: Order Date: 03/13/17Order Info: [id number] - *Hepatic Function PanelOrder Info: 54082-3 - *Lipid Profile CC PCPComments: 12 hours fasting, may have water.DR PÉREZ ORDERED LIPID/LIVERDR VICKY ORDERED TS Profil H/CBCD/LIPID/CMP/UA/[facility] [address] [place], [place], [address] GAP 5 (Normal) Range: 5-15 CO2 32.0 [...] Comments: Please note revised GLUCOSE reference range xvmcphyxa60/02/2018. 46-Bwr-74330:40 Lipid Profile Comments: Order Date: 03/13/17Order Info: 0788-1 - *Hepatic Function PanelOrder Info: 35612-9 - *Lipid Profile CC PCPComments: 12 hours fasting, may have water.DR PÉREZ ORDERED LIPID/LIVERDR VICKY ORDERED TS H/CBCD/LIPID/CMP/UA/[facility] [address] [place], [place], [id number] VLDL 11 mg/dL (Normal) Range: 5-40 LDL [...] Risk :40 Microalb:Creat Comments: DR PÉREZ ORDERED LIPID/LIVERDR PERRY ORDERED TSH/CBCD/LIPID/CMP/UA/[facility] [address] [place], [address] Ratio,Random UR MALB:CREAT 9.7 {mg/g_CRE} (Normal) MICROALBUMIN,UR 5.3 mg/L (Normal) UR CREAT 55.10 mg/dL (Normal) :40 Thyroid Stim Hormone Comments: Order Date: 03/13/17Order Info: 0788-1 - *Hepatic Function PanelOrder Info: [id number] - *Lipid Profile CC PCPComments: 12 hours fasting, may have water.DR PÉREZ ORDERED JUAN/JUNIOR PERRY ORDERED TS (TSH) H/CBCD/LIPID/CMP/UA/[facility] [address] [place], [address] TSH 1.84 {uIU/mL} (Normal) Range: 0.358-3.74 :40 Urinalysis, Complete Comments: DR PÉREZ ORDERED LIPID/JUNIOR PERRY ORDERED TSH/CBCD/LIPID/CMP/[facility]? [facility] [address] [place], [address] MUCUS, URINE 0 SEEN {/hpf} (Normal) [...] (Normal) CLARITY Clear (Normal) COLOR Yellow (Normal) 36-Tez-980298:44 URINE ALEX CULTURE-IDENTIFICATN Comments: PATIENT NOT FASTINGPERFORMED BY: [facility] Sqcdat4373 [facility] [id number] Information: [id number] (40347) Result 1 CNSNSS (Abnormal) Comments: Coagulase negative [...] SVancomycin S Urine Final report Culture,Compreh (Abnormal) [facility] 60-Icq-064883:10 Urinalysis, Office (53245) UA - LEUKOCYTE ESTERASE Small (Normal) UA - NITRITE Negative (Normal) URINE UROBILINGN JASMINE TIMED Normal mg/dL (Normal) UA - PROTEIN Negative mg/dL (Normal) UA - PH 7 (Normal) UA - BLOOD non-hemolyzed trace (Normal) UA - SPECIFIC GRAVITY 1.015 (Normal) UA - KETONES Negative mg/dL (Normal) UA - BILIRUBIN Negative (Normal) UA - GLUCOSE Negative (Normal) 01-Bce-243961:16 Basic Metabolic Profile (BMP) Comments: [facility] [address] [place], [address] ; will review at appt GAP 6 [...] 7-18 GLU 87 mg/dL (Normal) Range: 70-110 04-Keg-873081:25 URINE ALEX CULTURE (JASMINE Comments: PATIENT NOT FASTINGPERFORMED BY: [facility] Hospital[facility] [id number] Information: SRC:UR [id number] COL COUNT) (36976) Result 1 NG36 (Normal) Comments: No growth in 36 - 48 hours. Urine Culture,Comprehensive Final report (Normal) 20-Oeo-591035:44 Urinalysis, Office (95641) UA - LEUKOCYTE ESTERASE Negative (Normal) UA - NITRITE Negative (Normal) URINE UROBILINGN JASMINE TIMED Normal mg/dL (Normal) UA - PROTEIN Negative mg/dL (Normal) UA - PH 6.5 (Normal) UA - BLOOD Hemolyzed Trace (Normal) UA - SPECIFIC GRAVITY 1.010 (Normal) UA - KETONES Negative mg/dL (Normal) UA - BILIRUBIN Negative (Normal) UA - GLUCOSE Negative (Normal) 58-Blm-966334:10 URINE ALEX CULTURE (JASMINE Comments: PATIENT NOT FASTINGPERFORMED BY: [facility] Bjknvn2684 [facility] [id number] Information: SRC:[facility] [id number] COL COUNT) (04800) Antimicrobial MIHEAD (Normal) Comments: S = Susceptible; [...] mL (Abnormal) Urine Final report Culture,Comprehensive (Abnormal) 31-Pkh-088937:24 Urinalysis, Office (21583) UA - LEUKOCYTE ESTERASE Small (Normal) UA [...] 02-Feb-20157:28 Comprehensive Metabolic Profil Comments: Test performed at:[facility] [address] [place], [place] [address] GAP 6 (Normal) Range: 5-15 CO2 29.0 [...] Comments: Please note revised CREATININE reference range mxvdfuaxi89/22/2015. BUN 21 mg/dL (Abnormal) Range: 7-18 GLU 85 mg/dL (Normal) Range: 70-110 02-Feb-20157:28 Lipid Profile Comments: Test performed at:[facility] [address] [place] [address] ; non-emergent till apt VLDL 18 [...] :35 CBC W/Diff, Automated Comments: Test performed at:[facility] [address] [place] [address] ; non- emergent till apt Absolute [...] Range: 4.4-11.0 :35 CRP Comments: Test performed at:[address] [address] C-REACTIVE PROT 38.60 mg/L (Abnormal) Range: 0.0-3.0 Comments: C-Reactive Protein (CRP) provides useful information for thediagnosis, therapy and monitoring of inflammatory processesand associated diseases. For the evaluation of Relative Riskfor Cardiovascular Dise ase, a High Sensitivity CRP (HSCRP)should be ordered. :35 Culture, Urine Comments: Test performed at:[facility] [address] [place] [address] CUUR See Note (Normal) Comments: Urine CultureCulture exhibits no growth. :35 Erythrocyte Sed Rate Comments: Test performed at:[facility] [address] [place] [address] SED RATE 24 mm/h (Normal) Range: 0-30 38-Rdy-093181:11 URINE ALEX CULTURE-JASMINE COL Comments: PATIENT NOT FASTINGPERFORMED BY: [address] [id number] Information: SRC:[facility] [id number] COUNT (10914) Result 1 NG36 (Normal) Comments: No growth in 36 - 48 hours. Urine Culture,Comprehensive Final report (Normal) 92-Bsh-679173:11 Urinalysis, Office (28386) UA - LEUKOCYTE ESTERASE Small (Normal) UA - NITRITE Negative (Normal) URINE UROBILINGN JASMINE TIMED Normal mg/dL (Normal) UA - PROTEIN Trace mg/dL (Normal) UA - PH 6 (Abnormal) UA - BLOOD non-hemolyzed trace (Normal) UA - SPECIFIC GRAVITY 1.020 (Normal) UA - KETONES Negative mg/dL (Normal) UA - BILIRUBIN Negative (Normal) UA - GLUCOSE Negative (Normal) 89-Gjt-027432:57 V-Zoster IgG (Immunity) Comments: Test performed at:[facility] [address] [place] [address] VZOST IgG 10642 1894 {index} (Normal) Comments: Negative <135 Equivocal 135 - 165 Positive >165A positive result generally indicates exposure to thepathogen or adm inistration of specific immunoglobulins,but it is not indication of active infection or stageof disease.Performed at: - [address] [id number] Director: Bernardino grady PhD, Phone: [phone]; ADDENDA: has been seen in office since drawn 69-Vnt-32608:48 CBC W/Diff, Automated Comments: Test performed at:[facility] [address] [place] [address] Absolute Lymph 1.40 {X10_3/ul} (Normal) Range: [...] 4.2-5.4 WBC 4.3 K/mm3 (Abnormal) Range: 4.4-11.0 98-Alb-89267:48 Comprehensive Metabolic Profil Comments: Test performed at:[facility] [address] [place] [address] GAP 4 (Abnormal) Range: 5-15 CO2 28.0 [...] 70-110 :48 Lipid Profile Comments: Test performed at:[facility] [address] [place] [address] VLDL 14 mg/dL (Normal) Range: 5-40 LDL [...] Thyroid Stim Hormone (TSH) Comments: Test performed at:[facility] [address] [place] [address] TSH 1.57 {uIU/mL} (Normal) Range: 0.358-3.74 09-Mar-20149:23 [...] CHOL 151 mg/dL (Normal) Comments: <200 mg/dL Xvchpfwwa465-010 mg/dL Borderline>240 mg/dL High Risk :23 VZG 2963 {index} (Normal) Comments: Negative <135Equivocal 135 - 165Positive >165A positive result generally indicates exposure to thepathogen or administration of specific immunoglobulins,but it is not indicati on of active infection or stageof disease.Performed at: - [address] [id number] Director: Bernardino Camargo PhD, Phone: [phone]; ADDENDA: normal and pt has apt tomorrow [...] CHOL 151 mg/dL (Normal) Comments: <200 mg/dL Hhteqqurw824-037 mg/dL Borderline>240 mg/dL High Risk :17 VITD [...] CHOL 127 mg/dL (Normal) Comments: <200 mg/dL Cqmsjtial995-622 mg/dL Borderline>240 mg/dL High Risk :49 CBCMD [...] CHOL 129 mg/dL (Normal) Comments: <200 mg/dL Gknmimrih713-855 mg/dL Borderline>240 mg/dL High Risk HDL 48 [...] 250 nm ol/L)Toxicity >100 ng/mL (250 nmol/L)Effective 201225-Jun-201284-Ual-803130:32 URINE ALEX CULTURE (JASMINE Comments: PATIENT NOT FASTINGPERFORMED BY: [facility] Gzzggq4006 [facility] [id number] Information: SRC:UR N53070 COL COUNT) (07887) Result 1 CNSNSS (Normal) Comments: Coagulase negative Staphylococcus species, not Staphylococcussaprophyticus.100 Colonies/mL .Based on resistance to penicillin and susceptibility to o xacillinthis isolate would be susceptible to:* Penicillinase-stable penicillins; such as: Cloxacillin Dicloxacillin Nafcillin* Beta-lactam/beta-lactamase inhibitor combinations; such as: [place] xicillin-clavulanic acid Ampicillin-sulbactam* Antistaphylococcal cephems; such as: Cefaclor Cefuroxime* Antistaphylococcal carbapenems; such as: Imipenem Meropenem S = Susceptibl e; I = Intermediate; R = Resistant P = Positive; N = Negative MICS are expressed in micrograms per mL Antibiotic RSLT#1 RSLT#2 RSLT#3 RSLT#4 Ciprofloxacin SGentamicin SLevofloxacin SNitrofurantoin SOxacillin SPenicillin RRifampin STetracycline STrimethoprim/Sulfa SVancomycin S Urine Final report Culture,Comprehensi (Normal) ve 44-Nyk-106265:35 Urinalysis, Office (78978) UA - BILIRUBIN Negative (Normal) UA - BLOOD Hemolyzed Large (Normal) UA - GLUCOSE Negative (Normal) UA - KETONES Small mg/dL (Normal) UA - LEUKOCYTE ESTERASE Large (Normal) UA - NITRITE Negative (Normal) UA - PH 7.0 (Normal) UA - PROTEIN 100 mg/dL (Normal) UA - SPECIFIC GRAVITY 1.020 (Normal) URINE UROBILINGN JASMINE TIMED Normal mg/dL (Normal) 1-Pac-071064:19 Urinalysis, Office (70380) UA - BILIRUBIN Negative (Normal) UA - BLOOD Hemolyzed Trace (Normal) UA - GLUCOSE Negative (Normal) UA - KETONES Negative mg/dL (Normal) UA - LEUKOCYTE ESTERASE Negative (Normal) UA - NITRITE Negative (Normal) UA - PH 7.5 (Normal) UA - PROTEIN Negative mg/dL (Normal) UA - SPECIFIC GRAVITY 1.015 (Normal) URINE UROBILINGN JASMINE TIMED Normal mg/dL (Normal) 7-Ogd-378934:11 URINE ALEX CULTURE-IDENTIFICATN Comments: PATIENT NOT FASTINGPERFORMED BY: [facility] Kkyqcs6098 [facility] [id number] Information: [id number] (18663) Result 1 NG36 (Normal) Comments: No growth in 36 - 48 hours. Urine Culture,Comprehensive Final report (Normal) 37-Wzn-98437:33 CBCMD RBCM NORM C+C {NORMAL} (Normal) PE [...] 200-240 mg/dL Borderline >240 mg/dL High Risk 36-Ghq-28559:33 [facility] 0 SEEN {/hpf} (Normal) UBAC 0 [...] (Normal) UCLAR Clear (Normal) UCOL Yellow (Normal) 6-Ekw-960267:50 RIBS UNIL 2V NO CXR Radiology Report [...] Signed:Mikhail Palencia MDNovember 2011 at 5:31:33 PM [phone] Signed TP/TP If you are the referring physician and would like to consult with theradiologist who provided this inter pretation, please contact Mikhail Palencia MD at [phone]. If this radiologist is unavailable, you will bedirected to another radiologist to assist. If you are a patient with a question regarding this re port, pleasecontactyour referring physician directly. Professional Interpretation Provided By: [email or web address], Phone , These documents contain legally protected [...] ITS IMPORTSign by Mikhail Palencia MD on 04/08/121737 Sign by: Mikhail Palencia MD 6-Ato-904851:01 BILAT SCRN DIGITAL & CAD Radiology Report [...] Alonso M.D.March 05, 2012 at 2:05:30 PM [id number] Signed GP/GP If you are the referring physician and would like to consult with theradiologist who provided this interpretation, please contact Stuart Wills at [phone]. If this radiologist is unavailable, youwill be directed to another radiologist to assist. If you are a patient with a question regarding this report, pleasecontactyour referring physician directly. Professional Interpretation Provided By: [email or web address], Phone , These documents contain legally protected [...] as outlined above, according toWorldHealth Organization (WHO) nayeli gonzalez. Fracture risk is moderate. Reference Information:The [...] Alonso M.D.March 05, 2012 at 2:52:24 PM [id number] Signed GP/GP If you are the referring physici an and would like to consult with theradiologist who provided this interpretation, please contact Stuart Wills at [phone]. If this radiologist is unavailable, youwill be directed to anot her radiologist to assist. If you are a patient with a question regarding this report, pleasecontactyour referring physician directly. Professional Interpretation Provided By: anchor.travel, Phone , These documents contain legally protected [...] destructionofthese documents. Dictated on 03/05/12 1322 by Olga PLASCENCIA,Chrisranscribed on 03/05/12 1458 by ITS IMPORTSign by Olga PLASCENCIA,Michael on 1458 Sign by: Michael Alonso MD :26 CBCEM Comments: This patient requested that [facility] Labor[facility]oy send to you acopy of [...] 7-18 GLU 80 mg/dL (Normal) Range: 70-110 98-Gfo-93396:26 DC GIANT PLATELETS (Normal) Comments: This patient requested that [facility] Frazr send to you acopy of their Yearly Employee Health Risk Assessment.A copy of this report is also given to the patient so theycan follow up with your office if they choose. :26 EMP Comments: This patient requested that [facility] Frazr send to you acopy of their Yearly [...] 7-18 GLU 81 mg/dL (Normal) Range: 70-110 :26 LIPID Comments: VITD WAS DRAWN YESTERDAY ON [...] Very High > or = 500 mg/dL :26 UAEM Comments: This patient requested that [facility] send to you acopy of their [...] (Normal) UCLAR CLEAR (Normal) UCOL YELLOW (Normal) 77-Wwt-356083:01 VITD 45.5 ng/mL (Normal) Range: 30.0-100.0 Comments: Vitamin D deficiency has been defined by the [place] [employer] and an Endocrine Society practice guideline as alevel of serum 25-OH vitamin D less than 20 ng/mL (1,2).The Endocrine Society went on to further define vitamin Dinsufficiency as a level between 21 and 29 ng/mL (2).1. IOM ([place] [employer]). 2010. Dietary reference intakes for calcium and D. [place]: The National Academies Press.2. Paxton MF, Rojelio NC, Cortney GARIBAY, et al. Evaluation, treatment, and prevention of vitamin D deficiency: an Endocrine Society clinical practice guideline. JCEM. 2010; 96(7): 1911-30.Performed at: [address] [id number] Director: Korin Harris MD, Phone: [phone] 34-Tci-938563:34 HEPATOBILIARY IMAGING Radiology Report See Note (Normal) [...] cystic duct syndrome) to be low. (Genny Jensen al,Journal of Nuclear Medicine 32:1695, 1990). To consult with a radiologist regarding this report, please call our [id number] line @ Dictated on 05/31/1118 by Ehsan Vázquez DOTranscribed on 05/31/112030 by ITS IMPORTSign by Ehsan Vázquez DO on 05/31/112031 Sign by: Ehsan Vázquez DO 48-Fbw-612395:54 TOE(S),MIN 2 VIEWS Radiology Report See Note [...] regarding this rep ort, please call our [id number] line @ Dictated on 05/30/11 1150 by ARNEL TORRESTranscribed on 05/30/112228 by ITS IMPORTSign by ARNEL TORRES on 05/30/112229 Sign by: ARNEL TORRES 36-Vig-19253:21 GALLBLADDER Radiology Report See Note (Normal) Comments: [...] of the right kidney. The right kidn bbycmnbzza58.6 x 4.7 x 4.0 cm. Normal renal [...] by ITS IMPORTSign by MAIA SHELTON MD B on 05/02/11 1224 Sign by: CAT PLASCENCIA,MAIA Grimm :02 CBCD,SMEAR DIFF Comments: appt 05/17/11 RED [...] 7-18 GLU 76 mg/dL (Normal) Range: 70-110 06-Lzd-380656:02 TROPONIN-I < 0.02 ng/mL (Normal) Comments: TROPONIN-I EXPECTED VALUES <0.05 NEGATIVE 0.06 - 0.59 AT RISK OF HI > OR = 0.60 SUGGEST HI :11 ANKLE,MIN 3 VIEWS Radiology Report See Note [...] (JASMINE COL Comments: PATIENT NOT FASTINGPERFORMED BY: [facility] Ufsvce6980 [facility] [id number] COUNT) ([id number]) Result 1 NG36 (Normal) Comments: No growth in 36 - 48 hours. Urine Culture,Comprehensive Final report (Normal) :07 Urinalysis, Office (71892) UA - BILIRUBIN Negative (Normal) UA - [...] CHOL 150 mg/dL (Normal) Comments: <200 mg/dL Oxbcckrmw839-457 mg/dL Borderline>240 mg/dL High Risk HDL 56 [...] CHOL 150 mg/dL (Normal) Comments: <200 mg/dL Oyecrpjps447-034 mg/dL Borderline>240 mg/dL High Risk LDH 160 [...] (Normal) Comments: Result: NEGATIVE COLOR YELLOW (Normal) 19-Gkr-787939:10 BILAT ARAN DIGITAL & CAD Radiology See Note Comments: Exam Number: [id number] MAMMOGRAPHY - BILATERAL SCREENING INDICATION:Routine annual screening [...] not delay biopsy of a clinicallysuspicious abnormality.ADDENDUM: [id number] BI/MDS MAMMOGRAPHY - BILATERAL SCREENING INDICATION:Routine annua l [...] attach ing a ResultCode to this exam.ADDENDUM: [id number] HPBI/MDS Reported By: GISSELLE GONZALES M.D. 18-Hhi-097476:09 DEXA BONE DENSITY STUDY (HP) Radiology Report See Note Comments: Exam Number: [id number] CLINICAL:The patient is a 69-year-old female who is postmenopausal with pasthistory of hormone replacement therapy. History of fracture of C6dycswy history of osteoporosis EXAMINA (Normal) TION:DUAL ENERGY X-RAY ABSORPTIOMETRY / DEXA. TECHNIQUE:Bone Density Measurements (BMD) of lumbar spine and bilateral hipswere obtained using a Probiodrug scanner. COMPARISON:March 24 999, October 29, 2002, [...] NIH Osteoporosis and Related Bone Diseases http://www.osteo.org2. Railway Signal Operator [facility] Society for Clinical Densitometryhttp://www.iscd.org3. National Osteoporosis Foundation http://www.nof.org Reported By: GISSELLE GONZALES M.D. 24-Dec-19 VIT D,25 84711 39.0 ng/mL Range: 32.0-100.0 1012:08 (Normal) Comments: Recent studies consider the lower limit of 32.0 ng/mL to isabel threshold for optimal health.Sheng BURNETT. J Nutr. 2004;135(2):317- 22.Performed at: [address] Director: Korin Harris MD, Phone: [phone] 29-Oct-19 C DIF TOXIN/AG See Note Comments: C. DIFF ANTIGENS NEGATIVE 105:40 (Normal) 06-Vuz-69312:40 CUL STOOL/SHIG SHIGA-TOXIN See Note (Normal) Comments: [...] parvum,Cyclospora, or Microsporidia.__ TESTING PERFORMED AT [facility]. ORIGINAL REPORT ONFILE IN LAB CONTAINS ADDITIONAL TEST SITE INFORMATION. OVA/ PARASITES EXAM NO OVA, CYSTS, OR PARASITES FOUND. 14-Cjm-38626:40 WBC,STOOL See Note (Normal) Comments: FECAL WBCs NONE SEEN 41-Xjs-377168:25 ABDOMEN/PELVIS WITH CONTRAST Radiology Report See Note (Normal) Comments: Exam Number: [id number] CLINICAL:This is a 68-year-old female patient with history of left lowquadrant pain. CT ABDOMEN AND PELVIS WITH CONTRAST TECHNIQUE:Transaxial images were obtained from the dome of the diaphragm tothe symphysis pubis with oral contrast. 100 ml of Isovue- 300contrast was administered intravenously. Multiplanar coronal andsagittal images were reformatted. COMPARISON:Comparison is ma de with prior study dated December 30, 2007. [...] T PROT 7.7 g/dL (Normal) Range: 6.4-8.2 26-Hse-20890:56 COMPLETE UA BACTERIA RARE {/hpf} (Normal) LEUK [...] (Normal) Comments: Result: NEGATIVE COLOR YELLOW (Normal) 65-Vsv-80866:56 CULTURE, URINE URINE CULTURE See Note {CFU/mL} (Normal) Comments: COLONY COUNT 1000-10,000 ORGANISM 1: MIXED GRAM POSITIVE ORGANISMS 20-Wxm-93320:56 ESR SED RATE 48 mm/h (Abnormal) Range: 0-30 14-Uwt-706740:55 URINE ALEX CULTURE (JASMINE Comments: PATIENT NOT FASTINGPERFORMED BY: [facility] Jugunr7873 [facility] [id number] Information: SRC:UR [id number] COL COUNT) (04714) Result 1 NG36 (Normal) Comments: No growth in 36 - 48 hours. Urine Culture,Comprehensive Final report (Normal) 34-Are-755824:20 Urinalysis, Office (03589) UA - LEUKOCYTE ESTERASE Small (Normal) UA - NITRITE Negative (Normal) URINE UROBILINGN JASMINE TIMED 2 mg/dL (Normal) UA - PROTEIN Negative mg/dL (Normal) UA - PH 7.0 (Normal) UA - BLOOD Hemolyzed Trace (Normal) UA - SPECIFIC GRAVITY 1.015 (Normal) UA - KETONES Negative mg/dL (Normal) UA - BILIRUBIN Negative (Normal) UA - GLUCOSE Negative (Normal) 30-Kfa-05248:11 BREAST UNILATERAL US () Radiology Report See Note (Normal) Comments: Exam Number: [id number] CLINICAL:The patient is a 68-year-old female with [...] CHOL 147 mg/dL (Normal) Comments: <200 mg/dL Aaywhqxwy109-566 mg/dL Borderline>240 mg/dL High Risk :03 LIVER ALB 4.2 g/dL (Normal) Range: 3.4-5.0 ALK P 66 U/L (Normal) Range: 50-136 ALT 29 U/L (Normal) Range: 12-78 AST 20 U/L (Normal) Range: 15-37 D BILI 0.09 mg/dL (Normal) Range: 0.00-0.30 T BILI 0.30 mg/dL (Normal) Range: 0.00-1.00 T PROT 7.9 g/dL (Normal) Range: 6.4-8.2 07-Wjb-163334:41 Urinalysis, Office (58562) UA - LEUKOCYTE ESTERASE Trace (Normal) UA [...] T PROT 7.9 g/dL (Normal) Range: 6.4-8.2 12-Bfa-362519:56 LOWER EXT.JOINT ONLY (ROUTINE) Radiology Report See Note (Normal) Comments: Exam Number: [id number] CLINICAL: 68-year-old female with knee pain lateral [...] a full thickness radial tear of the dye line operator ior horn of the medial meniscus extending [...] last examination. Reported By: John Alcocer M.D. 9-Kap-062820:24 KNEE,4 OR MORE VIEWS (MT) Radiology Report See Note (Normal) Comments: Exam Number: [id number] CLINICAL:Pain X-RAY EXAMINATION RIGHT KNEE TECHNIQUE:4 view(s) [...] change. Osteopenia. Reported By: ARIADNA PERAZA M.D. 1-Pho-783246:23 L/S SPINE,MIN 4 VIEWS (MT) Radiology Report See Note (Normal) Comments: Exam Number: [id number] CLINICAL:Low back pain, radiculopathy X-RAY EXAMINATION: LUMBAR [...] to suggest acute fracture. Reported By: ARIADNA PEARZA M.D. 7-Zdw-115013:00 EMP URINALYSIS BILIRUBIN URINE SeeNote (Normal) Comments: [...] Range: 0.2 - 1.0 COLOR YELLOW (Normal) 7-Frh-717590:00 ROUTINE UA BILIRUBIN URINE SeeNote (Normal) Comments: [...] 2.6-6.0 VLDL 25 mg/dL (Normal) Range: 5-40 :17 EMP PROF HDL 48 mg/dL (Normal) Comments: [...] Report See Note (Normal) Comments: Exam Number: [id number] BONE DENSITOMETRY HISTORYOsteopenia. TECHNIQUE Bone densitometry of the lumbar spine and both hips is now beingperformed. The best criteria for evaluation of osteoporosis is theT-value, which represents the comparison of the patient's bone mass leigh expected peak bone mass. For most patients, the mean T-value of Q0wbubziw L4 is used to evaluate the lumbar [...] density is measured at 7.2% less than hh0637.The T-valu e of the right femoral neck is -2 which is in the range ofosteopenia.The T- value of the total right hip is -1.7 which is in the range ofosteopenia. IMPRESSIONThere is osteopenia of the lumbar spine and both hips. Reported By: GISSELLE GONZALES M.D. :54 BREAST UNILATERAL US () Radiology Report See Note (Normal) Comments: Exam Number: [id number] TARGETED LEFT BREAST ULTRASOUND HISTORYAbnormal mammogram. High-resolution [...] Greene's office and the office was called [phone] hours December 22, 2008. Reported By: GISSELLE GONZALES M.D. 98-Wug-563427:35 UNILAT LT DIAG DIGITAL & CAD Radiology Report See Note (Normal) Comments: Exam Number: [id number] MAMMOGRAM, UNILATERAL LEFT DIAGNOSTIC DIGITAL AND CAD [...] superimposition and small nodules,ultrasound is recommended. The nikolai young preferred to schedule theultrasound December 21, 2008, rather than having it performed at thistime. IMPRESSIONThere are 2 densities in the upper left breast for which ultrasound isrecommended. The nikolai young preferred to schedule the ultrasound forJu2008, rather than having it performed at the current time. FINAL ASSESSMENTNeed additional imaging evaluation. BIRADS Category 0. A letter regardi ng these results has been sent to the patient. This interpretation was rendered by a radiologist certified under theMammography Quality Standards Act of 1992 (MQSA). The mammograms werealso examined w [facility] computer-aided detection software ([employer], [employer], [employer].). Reported By: GISSELLE GONZALES M.D. 04-Xar-796815:30 [facility] DIGITAL & CAD Radiology Report See Note (Normal) Comments: Exam Number: [id number] MAMMOGRAM, BILATERAL SCREENING DIGITAL AND CAD HISTORYRoutine [...] mammograms werealso examined with computer-aided detection software ([employer]). Reported By: GISSELLE GONZALES M.D. 62-Pst-595498:37 BMP BUN 15 mg/dL (Normal) Range: 7-18 [...] g/dL (Normal) Range: 6.4-8.2 :11 AT3 F/I 25718 AT3 AG, IMMUNOL 131 % (Abnormal) Range: 75-130 AT3 FUNCT 56752 131 % (Normal) Range: 75-135 :11 PROT C 691739 PROT C,KI155688 169 % (Abnormal) Range: 74-151 Comments: Performed At: [address] [id number] PROTEIN C 01408 106 % (Normal) Range: 70-140 :11 PROT S 648340 PROTEIN S, FREE 107 % (Normal) Range: 56-124 PROTEIN S, FUNC 82 % (Normal) Range: 60-145 PROTEIN S,TOTAL 137 % (Normal) Range: 58-150 :38 A-CARDIO [id number] Comments: ORDER ALSO STATES ANTIPHOSPHOLIPIDS, WHICH IS [...] mm/h (Normal) Range: 0-30 :38 FAC II 940713 Comments: ORDER ALSO STATES ANTIPHOSPHOLIPIDS, WHICH IS A SYNONYM OFANTICARDIOLIPIN FACTOR II,DNA Comment (Normal) Comments: NEGATIVENo mutation identified.Comment:A point mutation ([id number]) in the Factor II (prothrombin)gene is the [...] antithrombinIII, protein C and protein S. :38 [facility] [id number] Comments: ORDER ALSO STATES ANTIPHOSPHOLIPIDS, WHICH IS [...] , elevatedhomocysteine levels, or a Factor II/prothrombin mutation(J10454E). Contact you r local [facility] for information [...] Range: 0.2 - 1.0 :48 Urinalysis, Office (01503) UA - BILIRUBIN Negative (Normal) UA - BLOOD Negative (Normal) UA - GLUCOSE Negative (Normal) UA - KETONES Negative mg/dL (Normal) UA - LEUKOCYTE ESTERASE Trace (Normal) UA - NITRITE Negative (Normal) UA - PH 6.5 (Normal) UA - PROTEIN Negative mg/dL (Normal) UA - SPECIFIC GRAVITY 1.005 (Normal) URINE UROBILINGN JASMINE TIMED 2 mg/dL (Normal) 4-Kkm-394405:04 BILAT SCRN DIGITAL & CAD Radiology Report See Note (Normal) Comments: Exam Number: [id number] MAMMOGRAM, BILATERAL SCREENING DIGITAL AND CAD HISTORYRoutine [...] werea lso examined with computer-aided detection software ([employer], [employer].). Reported By: GISSELLE GONZALES M.D. 9-Agg-732437:41 DEXA BONE DENSITY STUDY (HP) Radiology Report See Note (Normal) Comments: Exam Number: [id number] BONE DENSITOMETRY HISTORYOsteopenia. TECHNIQUE Bone densitometry of [...] in 1998 and 2% greater than in 2003. Digital lateral viewfor evaluation of vertebral deform ity only demonstrates mildcompression of L1, T8, and possibly T7. The T- value of the left femoral neck is -1.5 which is in the range ofosteopenia. The T-value of the total left hip is -1.3 which is in the range ofosteopenia. Bone mineral density is measured at 0.2% less than lq7739 and 0.1% more than in 2006. IMPRESSIONThere [...] 2.6-6.0 VLDL 21 mg/dL (Normal) Range: 5-40 79-Tjc-48487:19 EMP URINALYSIS BILIRUBIN URINE SeeNote (Normal) Comments: [...] (Normal) Range: 0.2 - 1.0 :00 METAN,U24 0516 Comments: DATE STARTED 05/12/07, TIME STARTED 0600DATE ENDED 05/13/07, TIME ENDED 0600 METANEPH,U24 64 {ug/24_hr} (Normal) Range: 35-460 METANEPHRINE,UR 41 ug/L (Normal) NORMETANEPH,U24 301 {ug/24_hr} (Normal) Range: 110-1050 NORMETANEPH,UR 194 ug/L (Normal) :00 VMA,U24 8273 Comments: DATE STARTED 05/12/07, TIME STARTED 0600DATE ENDED 05/13/07, TIME ENDED 0600 VMA,24UR 5.3 {mg/24_hr} (Normal) Range: 1.8-6.7 Comments: Performed At: [facility] [id number] VMA,UR 3.4 mg/L (Normal) :16 ALDOST,U24 4291 Comments: 24 H URINE TV = 2580 ML ALDOSTERONE,U24 3 {ug/24_hr} (Normal) Range: 2-21 Comments: 1 mo. 1 - 11 1- 12 mos. 1 - 22 1- 16 yrs. 2 - 16 Adult Ranges Normal diet 2 - 21 Low salt 17 - 44 High salt 0 - 14Performed At: [address] [id number] ALDOSTERONE,UR 1 ug/L (Normal) 12-Wly-276886:17 BRAIN/HEAD W/WO CONTRAST Radiology Report See Note (Normal) Comments: Exam Number: [id number] CT SCAN OF BRAIN HISTORYHeadache. Scans were [...] ethmoid sinusitis. Reported By: GISSELLE GONZALES M.D. 11-Bck-74003:51 CBC With Differential/Platelet Comments: [facility] [id number] Baso (Absolute) 0.1 {x10E3/uL} (Normal) Range: 0.0-0.2 [...] Comp. Metabolic Panel (14) Comments: [facility] BY: [facility] [id number] A/G Ratio 1.5 (Normal) Range: 1.1-2.5 Albumin, [...] Sedimentation 4 mm/h (Normal) Comments: PERFORMED BY: [facility] [id number] :51 Rate-Westergren Range: 0-30 5-Iir-208448:29 CULTURE, URINE URINE CULTURE See Note {CFU/mL} (Normal) Comments: COLONY COUNT >100,000 ORGANISM 1: ENTEROCOCCUS FAECALIS ENTEROCOCCUS FAECALIS: REACTION CIPROFLOXACIN GP $$$ <=0.5 S LEVOFLOXAC IN $$ <=1 S NITROFURANTOIN $ <=32 S PENICILLIN G (ENTEROCOCCUS) $$ 2 S TETRACYCLINE $$ <=1 S VANCOMYCIN $$ <=0.5 S 8-Rcn-051214:29 ROUTINE UA BILIRUBIN URINE SeeNote (Normal) Comments: [...] is totally submitted in one cassette. / BETSEY:chente 04/10/06 TC:4 REPORT SIGNED: YELENA HERNANDEZ 04/11/06 [...] tissue mass Soft tissue mass : Reviewed Bore Mill Operator Letter Indication: Soft tissue mass Gastroesophageal reflux [...] EASY BRUISABILITY OF SKIN Planned Observations TSH (82968)Indication: Hypercholesterolemia On: :41 Request URINALYSIS, W/ MICRO (41024)Indication: Essential hypertension On: :41 Request MICROALBUMIN: CREATININE RATIO (52848) AND (10345)Indication: Essential hypertension On: :41 Request METABOLIC PANEL, COMPREHENSIVE (57095)Indication: Essential hypertension On: :41 Request LIPOPROTEIN, BLD, BY NMR (97896)Indication: Hypercholesterolemia On: :41 Request CBC W/AUTO DIFF WBC (79536)Indication: Essential hypertension On: :41 Request TSH (81188)Indication: Hypercholesterolemia On: :51 Request URINALYSIS, W/ MICRO (31983)Indication: Essential hypertension On: :51 Request MICROALBUMIN: CREATININE RATIO (00564) AND (82960)Indication: Essential hypertension On: :51 Request METABOLIC PANEL, COMPREHENSIVE (16218)Indication: Essential hypertension On: :51 Request LIPID PANEL (39527)Indication: Essential hypertension On: :51 Request CBC W/AUTO DIFF WBC (83901)Indication: Essential hypertension On: :51 Request Metabolic Panel, Basic (56512)Indication: Essential hypertension On: 25-Hwr-874077:32 Request Comments: 2 weeks Vitamin D Hydroxy (69846)Indication: Osteopenia On: :23 Request URINALYSIS, W/ MICRO (04107)Indication: Essential hypertension On: :23 Request CBC W/AUTO DIFF WBC (09035)Indication: Essential hypertension On: :23 Request METABOLIC PANEL, COMPREHENSIVE (51196)Indication: Essential hypertension On: :23 Request LIPID PANEL (90958)Indication: Hypercholesterolemia On: :22 Request SED RATE ERYTHROCYTE (52417)Indication: Abdominal pain, acute, generalized On: :47 Request C-REACTIVE PROTEIN (06103)Indication: Abdominal pain, acute, generalized On: :47 Request CBC with auto diff (46284)Indication: Abdominal pain, acute, generalized On: :46 Request LIPID PANEL (24994)Indication: Hypercholesterolemia On: :27 Request METABOLIC PANEL, COMPREHENSIVE (15819)Indication: Essential hypertension On: :26 Request VARICELLA-ZOSTER ANTBODY (90236)Indication: Hypercholesterolemia On: 29-Zhd-743420:58 Request TSH (22960)Indication: Anxiety associated with depression On: 31-Uvi-660197:12 Request LIPID PANEL (64174)Indication: Hypercholesterolemia On: 48-Xhz-928579:12 Request CBC W/AUTO DIFF WBC (15136)Indication: Essential hypertension On: 65-Xbk-242457:12 Request METABOLIC PANEL, COMPREHENSIVE (69794)Indication: Essential hypertension On: 35-Yrm-648650:12 Request VARICELLA-ZOSTER ANTBODY (26934)Indication: screen On: 54-Qfx-376927:59 Request CBC WITH MANUAL DIFF (32376)Indication: Essential hypertension On: 95-Fvq-630114:59 Request LIPID PANEL (39199)Indication: Hypercholesterolemia On: 62-Hpm-644349:58 Request METABOLIC PANEL, COMPREHENSIVE (80636)Indication: Essential hypertension On: 16-Xci-455289:58 Request Vitamin D Hydroxy (73097)Indication: Osteopenia On: :33 Request METABOLIC PANEL, COMPREHENSIVE (97143)Indication: Essential hypertension On: :33 Request LIPID PANEL (31258)Indication: Hypercholesterolemia On: :33 Request METABOLIC PANEL, COMPREHENSIVE (19627)Indication: Essential hypertension On: :57 Request LIPID PANEL (70213)Indication: Hypercholesterolemia On: 41-Vmo-76200:56 Request Vitamin D Hydroxy (77472)Indication: Anxiety associated with depression On: :51 Request CBC WITH MANUAL DIFF (44383)Indication: Essential hypertension On: :51 Request METABOLIC PANEL, COMPREHENSIVE (08202)Indication: Essential hypertension On: :51 Request TSH (71748)Indication: Anxiety associated with depression On: :51 Request LIPID PANEL (55335)Indication: Hypercholesterolemia On: :50 Request CBC WITH MANUAL DIFF (71945)Indication: Essential hypertension On: : Request METABOLIC PANEL, COMPREHENSIVE (11013)Indication: Essential hypertension On: : Request LIPID PANEL (74561)Indication: Hypercholesterolemia On: : Request URINALYSIS, W/ MICRO (84141)Indication: Essential hypertension On: :08 Request CBC WITH MANUAL DIFF (39031)Indication: Essential hypertension On: :08 Request METABOLIC PANEL, COMPREHENSIVE (98394)Indication: Essential hypertension On: :06 Request LIPID PANEL (66943)Indication: Hypercholesterolemia On: :06 Request LIPID PANEL (64819)Indication: Hypercholesterolemia On: :28 Request CBC WITH MANUAL DIFF (69622)Indication: Essential hypertension On: :28 Request METABOLIC PANEL, COMPREHENSIVE (22845)Indication: Essential hypertension On: :28 Request METABOLIC PANEL, COMPREHENSIVE (80770)Indication: Essential hypertension On: :48 Request Vitamin D Hydroxy (51731)Indication: Depression On: :48 Request LIPID PANEL (20567)Indication: Hypercholesterolemia On: 61-Pmj-622556:47 Request CBC WITH MANUAL DIFF (08187)Indication: Other chest pain On: :19 Request METABOLIC PANEL, COMPREHENSIVE (82722)Indication: Other chest pain On: :18 Request ASSAY, TROPONIN, QUANTITATIVE (aka Troponin I) (19139)Indication: Other chest pain On: 98-Yhi-642205:18 Request Comments: stat CALCIFEDIOL (62226)Indication: Eczema (Renamed from Dermatitis, eczematoid) On: 66-Sez-729799:34 Request OVA & PARASITE DIR SMEAR (01218)Indication: Diarrhea (Renamed from D (diarrhea)) On: 86-Mif-948231:11 Request LEUKOCYTE COUNT, FECAL (56154)Indication: Diarrhea (Renamed from D (diarrhea)) On: 15-Ibt-291991:10 Request C.Difficile, Stool (81622)Indication: Diarrhea (Renamed from D (diarrhea)) On: 15-Etb-000845:10 Request ALEX CULTURE-STOOL (40092)Indication: Diarrhea (Renamed from D (diarrhea)) On: 21-Rtf-452183:10 Request SED RATE ERYTHROCYTE (79016)Indication: Abdominal pain, acute, left lower quadrant On: 74-Vrf-950101:10 Request C-REACTIVE PROTEIN (24692)Indication: Abdominal pain, acute, left lower quadrant On: 21-Vvs-574316:10 Request URINALYSIS, W/ MICRO (37827)Indication: Abdominal pain, acute, left lower quadrant On: 58-Xbq-235550:10 Request METABOLIC PANEL, COMPREHENSIVE (87422)Indication: Abdominal pain, acute, left lower quadrant On: 37-Hpx-246815:10 Request CBC WITH MANUAL DIFF (27134)Indication: Abdominal pain, acute, left lower quadrant On: 55-Sgb-074350:10 Request METABOLIC PANEL, COMPREHENSIVE (11290)Indication: Essential hypertension On: 78-Lsx-601548:47 Request HEPATIC FUNCTION PANEL (74459)Indication: Hypercholesterolemia On: 52-Djo-542473:47 Request LIPID PANEL (73675)Indication: Hypercholesterolemia On: 73-Ajh-678064:47 Request Vitamin D Hydroxy (41637)Indication: Osteopenia On: 45-Pff-125342:46 Request LIPID PANEL (77903)Indication: Hypercholesterolemia On: 10-Mar-20098:38 Request HEPATIC FUNCTION PANEL (60393)Indication: Hypercholesterolemia On: 10-Mar-20098:38 Request Metabolic Panel, Basic (02062)Indication: DISORDERS, ORGANIC, SLEEP RELATED LEG CRAMPS On: 84-Roi-549090:17 Request URINALYSIS W/O MICRO (07195)Indication: Essential hypertension On: 2-Kvr-872347:48 Request TSH (84117)Indication: Essential hypertension On: 4-Wtt-975231:48 Request METABOLIC PANEL, COMPREHENSIVE (62704)Indication: Essential hypertension On: :48 Request CBC WITH MANUAL DIFF (45633)Indication: Essential hypertension On: :48 Request LIPID PANEL (49291)Indication: Hypercholesterolemia On: :48 Request CBC WITH MANUAL DIFF (28274)Indication: Anemia, unspecified On: :51 Request LIPID PANEL (28653)Indication: Hypercholesterolemia On: :31 Request HEPATIC FUNCTION PANEL (17303)Indication: Hypercholesterolemia On: :41 Request LIPID PANEL (09776)Indication: Hypercholesterolemia On: :41 Request SED RATE ERYTHROCYTE (12608)Indication: Headache (Renamed from Cephalalgia) On: :40 Request METABOLIC PANEL, COMPREHENSIVE (09108)Indication: Headache (Renamed from Cephalalgia) On: :39 Request CBC WITH MANUAL DIFF (30341)Indication: Headache (Renamed from Cephalalgia) On: :39 Request CBC WITH MANUAL DIFF ([id number])Indication: EASY BRUISABILITY OF SKIN On: :59 Request PTT (ACTIVATED PARTIAL THROMBOPLASTIN TIME) ([id number])Indication: EASY BRUISABILITY OF SKIN On: :59 Request PT (PROTHROMBIN TIME) ([id number])Indication: EASY BRUISABILITY OF SKIN On: :59 Request HEPATIC FUNCTION PANEL ([id number])Indication: Hypercholesterolemia On: :54 Request LIPID PANEL ([id number])Indication: Hypercholesterolemia On: :54 Request Planned Encounters Medical; 4 Month FU - On: 16-Aug-2018 10:00 [facility] Catrina Perry DO, DO, Kathleen Planned Procedures CT OF NECK WITHOUT THEN WITH On: 09-Apr-2018 Intent INTRAVENOUS CONTRAST ([id number])By: Comments: include thyroid Acacia Whaley CNP Ultrasound - ThyroidBy: Jovana OJEDA, On: 09-Apr-2018 Intent Acacia Wang Comments: attetion soft tissue rt side of neck Flu Vaccine (Quadrivalent) [id number]: On: 13-Mar-2018 Intent Ladi Max Comments: Lot #[id number]-L dltd, IMDose prefilled syringegiven by:SABINA Mclain reviewed and ABN signed FLAT PLATE ([id number])By: Jovana OJEDA, On: 19-Dec-2017 Intent Acacia Wang ELECTROCARDIOGRAM, COMPLETE (ECG) On: 12-Dec-2017 Intent ([id number])By: Catrina Perry DO Comments: nsr no acute chg Catrina Perry DO Bone Density StudyBy: Tessie Greene DO On: 10-May-2015 Intent A Comments: screening ADMINISTRATION OF INFLUENZA VIRUS On: 05-Feb-2015 Intent VACCINE ([id number])By: Tessie Greene DO Flu Vaccine (Quadrivalent) 15261Zr: On: 05-Feb-2015 Intent Tessie Greene DO Comments: Lot:[id number]:09/01/15Dose:0.5mLRoute:IMSite:L DltdGiven By:JKAT signed MAMMOGRAM, SCREENING, BOTH BREAST On: 05-Feb-2015 Intent ([id number])By: Tessie Greene DO Comments: nov DEXA SCAN AXIAL SKELETON ([id number])By: On: 05-Feb-2015 Intent Tessie Greene DO Comments: nov Solu -Medrol Injection, 125 mg On: 09-Dec-2014 Intent ([id number])By: Acacia Whaley CNP Comments: lot:[id number]:route:IMdose:125MGsite: R glutGiven by: ROSANGELA Gamble MAMMOGRAM, SCREENING, BOTH BREAST On: 13-Mar-2014 Intent ([id number])By: Tessie Greene DO ADMINISTRATION OF INFLUENZA VIRUS On: 13-Mar-2014 Intent VACCINE ([id number])By: Tessie Greene DO FLU VAC, SPLIT, >3 YEARS, INTRAMUSC On: 13-Mar-2014 Intent ([id number])By: Tessie Greene DO Comments: lot: [id number]: 12-01-13site/route: L del/IMamt: 0.5mLVIS signed when applicableROSANGELA Villa Eprescribed prescriptions ([id number])By: On: 16-Sep-2013 Intent Tessie Greene DO Eprescribed prescriptions ([id number])By: On: 18-Mar-2013 Intent Libby Herndon FLU VAC, SPLIT, >3 YEARS, INTRAMUSC On: 20-Feb-2013 Intent ([id number])By: Fallon Carranza Comments: Lot:[id number]:Dose:0.5mLRoute:IMSite:L DltdGiven By:AGAVIS signed IMMUNIZ ADMNIN, 1 VAC, SNGL/COMBO On: 20-Feb-2013 Intent ([id number])By: Fallon Carranza MAMMOGRAM, SCREENING, BOTH BREASTS On: 31-Dec-2012 Intent ([id number])By: Tessie Greene DO Eprescribed prescriptions ([id number])By: On: 11-Nov-2012 Intent Libby Herndon Eprescribed prescriptions ([id number])By: On: 23-Sep-2012 Intent Libby Herndon EKG ([id number])By: Libby Herndon On: 21-Aug-2012 Intent Comments: ekg showed normal sinus rhythym, normal axis, no acute st/t wave changes Eprescribed prescriptions ([id number])By: On: 25-Jun-2012 Intent Tanya Bermudez LPN PNEUM VAC ADLT/IMUMNOSPR, SBC/INTRM On: 03-May-2012 Intent ([id number])By: Tessie Greene DO Comments: Lot:[id number]:08-06-13Dose:0.5mLRoute:IMSite:L armGiven By:AGA ADMINISTRATION OF PNEUMOCOCCAL On: 03-May-2012 Intent VACCINE ([id number])By: Tessie Greene DO Eprescribed prescriptions ([id number])By: On: 03-May-2012 Intent Libby Herndon Zigfwmmcc-Hoq-Msseg ([id number])By: Ciesa On: 08-Apr-2012 Intent Acacia OJEDA DXA, BONE DENSITY, AXIAL SKELETON On: 30-Jan-2012 Intent ([id number])By: Tessie Greene DO MAMMOGRAM, SCREENING, BOTH BREASTS On: 30-Jan-2012 Intent ([id number])By: Tessie Greene DO IMMUNIZ ADMNIN, 1 VAC, SNGL/COMBO On: 30-Jan-2012 Intent ([id number])By: Megan Phillips LPN Comments: Lot/Exp: [id number], 11/2011Given in L Dltd, IMPrefilled SyringeBy ROEL Guzman FLU VAC, SPLIT, >3 YEARS, INTRAMUSC On: 30-Jan-2012 Intent ([id number])By: Megan Phillips LPN Breast Screening - BilateralBy: Fast On: 30-Jan-2012 Intent DO, Tessie A Eprescribed prescriptions ([id number])By: On: 11-Jul-2011 Intent Acacia Whaley CNP Radiology - Toe(s) - LeftBy: Fast On: 30-May-2011 Intent DO Tessie A Nuclear Medicine - HIDA w/CPKBy: On: 05-May-2011 Intent Fast DO Tessie A Ultrasound - GallbladderBy: Fast DO, On: 01-May-2011 Intent Tessie A Comments: please do tomorrow Cartoid DopplerBy: Fast DO Tessie A On: 01-May-2011 Intent EKG ([id number])By: Libby Herndon On: 01-May-2011 Intent Comments: ekg showed normal sinus rhythym, normal axis, no acute st/t wave changes poor r wave progression unchanged TDAP VACCINE >7 IM ([id number])By: On: 01-May-2011 Intent Libby Herndon Comments: work FLU VAC, SPLIT, >3 YEARS, INTRAMUSC On: 01-May-2011 Intent ([id number])By: Libby Herndon Comments: work DXA, BONE DENSITY, AXIAL SKELETON On: 09-Feb-2011 Intent ([id number])By: Monserrat Granado LPN MAMMOGRAM, SCREENING, BOTH BREASTS On: 09-Feb-2011 Intent ([id number])By: Monserrat Granado LPN Radiology - Ankle - LeftBy: Ciesa On: 14-Dec-2010 Intent Acacia OJEDA Comments: call wet read to Acacia Whaley Eprescribed prescriptions ([id number])By: On: 15-Nov-2010 Intent Fast DO Tessie A CT - Abdomen & PelvisBy: Fast DO, On: 26-Oct-2009 Intent Tessie A Comments: tomorrow call wet read EKG ([id number])By: Libby Herndon On: 30-Aug-2009 Intent Comments: do [...] BROUSSARD, On: 07-Jun-2007 Intent Tessie Soler EKG ([id number])By: Tessie Greene DO On: 28-Apr-2007 Intent Comments: ordered to be done at the hospital CT - Brain/HeadBy: Tessie Greene DO On: 20-Mar-2007 Intent Comments: with and without contrast- please do stat and call wet read IMMUNIZ ADMNIN, 1 VAC, SNGL/COMBO On: 04-Apr-2006 Intent ([id number])By: Libby Herndon PNEUM VAC ADLT/IMUMNOSPR, SBC/INTRM On: 04-Apr-2006 Intent ([id number])By: Libby Herndon Comments: Lot #:Expiration date:Amount given:Route: IMSite given:LEFT DELTOIDGiven by: JESSICA Weinberg IMMUNIZ ADMNIN, 1 VAC, SNGL/COMBO On: 04-Apr-2006 Intent ([id number])By: Tessie Greene DO PNEUM VAC ADLT/IMUMNOSPR, SBC/INTRM On: 04-Apr-2006 Intent ([id number])By: Tessie Greene DO Planned Medications INJECTION, METHYLPREDNISOLONE [...] The patient does have durable power of employment attorney and living will. The patient has [...] The patient does have durable power of employment attorney and living will. The patient has noticed nothing from the geriatic depre ssion scale. Other providers contributing to the patient's care are other: (hearing and eye dr- Dr herrera and Dr. Zamora). 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 and that has h elped- no gerd [...] thinks helping- going every6 w manuel- saw Caterinainer- got bone density- back better and one [...] seeing jessica for counseling and thinks helping alot has appt with Dr Sanderson- in jan, [...] effective than benicar- [facility]- doesnt want to change- [...] to get back on track and joining [employer] [facility]- her mood is pretty good and brother in hospice care but less stress than before- no gerd - nomore lisbeth sx , [ADDITIONAL REASON] Follow up, Laboratory Test [...] is having hearing issues and has appt lizette barlow needs referral- back is feeling better- no [...] with welbutrin more energy and seeing the consulting services associate-- no issues withthe crestor- wever since cortison [...] for chronic medical issues: her brother in [facility] and got a pressure sore- having [...] df's recieved documents from Dr. Nichole at [facility]). 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
--- OUTSIDE RECORDS SUMMARY | 2018-08-24 15:39 | XMS RPT_ITS | Continuity of Care Document ---
:1940 External Reference #:[id number] Author Organization [facility] Address [address] [place] [address] Phone Care Team Providers Name Role Phone Catrina Perry DO Unavailable Ricardo Rollins MD Unavailable Dr. Addison Kimball Unavailable Poly Bunn Unavailable Duke PLASCENCIA, Dr. Janes Dougherty Unavailable Winter, Ladi Unavailable Unavailable Sadia Goel Unavailable Unavailable Libby Herndon Unavailable Unavailable Fallon Carranza Unavailable Unavailable Psychiatric Registered Nurse, System Unavailable Unavailable Carolin Garber LPN Unavailable [...] macrobid Status: Active Medications Name Dates Details ASPIRIN LOW DOSE, 81MG (Oral Tablet) 1 QD for 0 days Refills: 0 Ordered:10-Mar-2009 Shankar Herndon BIOTIN, 1000MCG (Oral Tablet) qd (1000 MCG) Active CALCIUM, 1500MG (Oral Tablet) 1 QD for 0 days Refills: 0 Ordered:16-Sep-2013 Shankar Herndon Citalopram Hydrobromide 20 MG Oral Tablet 1 qd (20 MG) Active CITRACAL MAXIMUM, [id number]-EYCC (Oral Tablet) 1 tab bid (315-250 MG-UNIT) Active FOLIC ACID, 400MCG (Oral Tablet) qd (400 MCG) Active GLUCOSAMINE CHONDR 1500 COMPLX (Oral Capsule) bid Active HydroCHLOROthiazide 12.5 MG Oral Tablet 1 (one) Tablet daily for 90 days Quantity: 90 {Tablet} Refills: 3 Ordered:26-Dec-2017 Nick Perry DO, DO, Kathleen Start : 26-Dec-2017 Active HydroCHLOROthiazide 12.5 MG Oral Tablet 1 (one) Tablet daily for 30 days Quantity: 30 {Tablet} Refills: 1 Ordered:26-Dec-2017 Nick Perry DO, DO, Kathleen Start : 26-Dec-2017 Active Losartan Potassium 50 MG Oral Tablet 1 qd (50 MG) Active Metoprolol Succinate ER 25 MG Oral Tablet Extended Release 24 Hour 1 qd (25 MG) Active MULTIVITAMIN (Oral Liquid) for 0 days Refills: 0 Ordered:31-Dec-2017 Slarb CYLINDER INSPECTOR, AngelaActive Omeprazole 20 MG Oral Capsule Delayed Release [address] qd for 90 days Quantity: 90 {Capsule} Refills: 3 Ordered:18-Apr-2018 Vicky BROUSSARD JenniferNéstor Catrina Start : 18-Apr-2018 Active Simvastatin 40 MG Oral Tablet 1 (one) Tablet qd for 90 days Quantity: 90 {Tablet} Refills: 3 Ordered:18-Apr-2018 Vicky BROUSSARD JenniferNéstor BROUSSARD Catrina Start : 18-Apr-2018 Active ALEVE, 220MG (Oral Tablet) 2 (two) Tablet q8 hr prn with food for 0 days Quantity: 30 {Tablet} Refills: 0 Ordered:30-Jan-2012 Megan Phillpis LPN L Start : 14-Dec-2010 End : 30-Jan-2012 Inactive SAI-D 12 HOUR, 60-120MG (Oral Tablet Extended Release 12 Hour) 1 Tablet ER 12HR bid for 5 days Quantity: 12 {Tablet_ER_12HR} Refills: 0 Ordered:08-Aug-2010 VickyNick dawson DO, DO Catrina Start : 23-Jun-2010 End : 28-Jun-2010 Inactive ASTEPRO, 0.15% (Nasal Solution) 2 (two) Puff(s) daily for 0 days Quantity: 1 {Suppository(ies)} Refills: 0 Ordered:30-Jan-2012 Megan Phillips LPN L Start : 11-Jul-2011 End : 30-Jan-2012 Inactive [...] qd for 0 days Refills: 0 Ordered:27-Sep-2007 Yanick Libby End : 27-Sep-2007 Inactive KLONOPIN, 0.5MG (Oral [...] days Quantity: 21 {Tablet} Refills: 0 Ordered:09-Dec-2014 Acacia Whaley CNP Start : 09-Dec-2014 End : 16-Dec-2014 Inactive [...] days Quantity: 1 {Package(s)} Refills: 0 Ordered:30-Jan-2012 Long Megan SEVILLA Start : 21-Jul-2011 End : 30-Jan-2012 Inactive ZOLOFT, 50MG (Oral Tablet) 1 (one) Tablet QD for 0 days Quantity: 90 {Tablet} Refills: 3 Ordered:06-Aug-2012 Ariadna BETTE Start : 29-Sep-2011 End : 06-Aug-2012 Inactive AMOXICILLIN-POT CLAVULANATE, 875-125MG (Oral Tablet) 1 (one) Tablet Tablet bid for 0 days Quantity: 20 {Tablet} Refills: 0 Ordered:21-May-2015 Libby Herndon Start : 11-Jan-2015 End : 21-May-2015 Discontinued CRESTOR, 10MG (Oral Tablet) 1 tab Tablet qd for 90 days Quantity: 90 {Tablet} Refills: 3 Ordered:30-Jan-2012, Tessie A Start : 30-Jan-2012 End : 30-Jan-2012 Discontinued [...] 0 days Quantity: 90 {Tablet} Refills: 3 Ordered:03-May-2012, Tessie A Start : 03-May-2012 End : 03-May-2012 Discontinued PRILOSEC, 20MG (Oral Capsule Delayed Release) [address] qd for 90 days Quantity: 90 {Capsule_DR} Refills: 3 Ordered:30-Jan-2012, Tessie A Start : 30-Jan-2012 End : 30-Jan-2012 Discontinued REMIFEMIN MENOPAUSE, 20MG (Oral Tablet) 1 tab bid for 0 days Refills: 0 Ordered:08-Jan-2008 Libby Herndon End : 08-Jan-2008 Discontinued Allergies and Adverse Reactions Name Dates Details Bactrim *ANTI-INFECTIVE AGENTS - [facility] [place] Status: Active (Allergy) Comments: nausea Allergy to [...] WITH Contrast Result: Comments: See Note; NOTES: [facility] Imaging Services [address] [place] [address] Soft Tissue Neck WITH Contrast MR#: [id number] Acct: [id number] Name: HERMAN LEONARD Rep #: [id number] : 1940 F 77 From: Michael Alonso MD PCP: Catrina Perry DO Status: REG CLI Study: Soft Tissue Neck WITH Contrast Date of Exam: 04/10/18 Exam# [id number] Ordering Dr: Acacia Whaley STUDY: CT SOFT [...] FINDINGS: Normal bilateral parotid glands. Normal bilateral precise winder spaces. Normal bilateral parapharyngeal spaces. Normal bilateral [...] Alonso MD 04/10 at 15:37 EST Tel [phone], Service support , CC: Acacia Whaley NP; Catrina Perry DO Behavioral Health Therapist: Signed 10-Apr-2018 Soft Tissue Neck WITH Contrast Result: Comments: See Note; NOTES: [facility] Imaging Services [address] [place] [address] Soft Tissue Neck WITH Contrast MR#: [id number] Acct: [id number] Name: HERMAN LEONARD Rep #: [id number] : 1940 F 77 From: Michael Alonso MD PCP: Catrina Perry DO Status: REG CLI Study: Soft Tissue Neck WITH Contrast Date of Exam: 04/10/18 Exam# [id number] Ordering Dr: Acacia Whaley P-C ADDENDUM by [...] Michael Alonso MD at 8:47 EST Tel [phone], Service support , 04/11/18 0847 Date cc : Acacia Whaley NP; Catrina Perry DO * Signed ADDENDUM by Michael Alonso MD on 04/11/[address]/Soft Tissue Neck WITH Contrast 04/11/18 0854 Date cc: Acacia Arenasmikayla STAMP ANALYST; Catrina Perry DO * Signed STUDY: CT [...] FINDINGS: Normal bilateral parotid glands. Normal bilateral precise winder spaces. Normal bilateral parapharyngeal spaces. Normal bilateral [...] Michael Alonso MD at 15:37 EST Tel [phone], Service support , CC: Acacia Whaley NP; Catrina Perry DO Behavioral Health Therapist: Signed 09-Apr-2018 Thyroid Result: Comments: See Note; NOTES: [facility] Imaging Services [address] [place] [address] Thyroid MR#: [id number] Acct: [id number] Name: HERMAN LEONARD Rep #: [id number] : [birth year] F 77 From: Michael Alonso MD PCP: Catrina Perry DO Status: REG CLI Study: Thyroid Date of Exam: 04/09/18 Exam# [id number] Ordering Dr: Acacia Whaley STAMP ANALYST-C STUDY: THYROID ULTRASOUND REASON FOR EX AM: [...] Alonso MD at 15:[address] Tel [phone], Service support , CC: Acacia Whaley STAMP ANALYST; Catrina Perry DO Behavioral Health Therapist: Signed 19-Dec-2017 Abdomen Single View Result: Comments: See Note; NOTES: [facility] Imaging Services [address] [place] [address] Abdomen Single View MR#: [id number] Acct: [id number] Name: HERMAN LEONARD Rep #: [id number] D OB: 1940 F 76 From: Chris Rachel MD PCP: Catrina Perry DO Status: REG CLI Study: Abdomen Single View Date of Exam: 12/19/17 Exam# [id number] Ordering Dr: Acacia Whaley STUDY: X-RAY - [...] , Service support , CC: Acacia Whaley STAMP ANALYST; Catrina Perry DO Behavioral Health Therapist: Signed 20-May-2015 Dexa Bone Density Study (HP) Result: Comments: See Note; NOTES: [facility] Services [address] [place] [address] Verdana 4d Dexa Bone Density Study (HP) MR#: [id number] Acct: [id number] Name : HERMAN LEONARD Rep #: [id number] : 1940 F 74 From: Michael Alonso MD PCP: Tessie Greene DO Status: [facility] CL Study: Dexa Bone Density Study (HP) Date of Exam: 05/20/15 Exam# [id number] Radhai ng Dr: Tessie Greene DO STUDY: DUAL ENERGY [...] Michael Alonso MD at 10:30 EST Tel [phone], Service support [phone], CC: Jailyn Yang MD; Tessie Greene DO Behavioral Health Therapist: Signed 06-Apr-2015 Bilat Scrn Digital AND CAD Result: Comments: See Note; NOTES: [facility] Imaging Services [address] [place] [address] Verdana 4d Bilat Scrn Digital AND CAD MR#: [id number] Acct: [id number] Name: HERMAN LEONARD Rep #: [id number] : 1940 F 74 From: Michael Alonso MD PCP: Tessie rGeene DO Status: REG CLI Study: Db Viverosn Digital AND CAD Date of Exam: 04/06/15 Exam# [id number] Ordering D r: Tessie Greene DO MAMMOGRAPHY [...] Michael Alonso MD at 7:54 EST Tel [phone], Service support [phone], CC: Tessie Greene DO Behavioral Health Therapist: Signed 05-Feb-2015 EKG (25968) Comments: ekg showed normal sinus rhythym, normal axis, no acute st/t wave changes Result: [MEASUREMENTS ANALYSIS] Date of Test: 02/05/2015 09:47:50; Heart Rate: 58; MN Interval: 156; QRS: 93; QT Interval: 420; Corrected QT Interval (QTc): 417; P Wave Hill[place]: 31; QRS Wave [place]: 31; T Wave [place]: 44; Blood Pressure: 122/84 [ECG DIAGNOSTIC STATEMENTS] Date of Test: 02/05/2015 09:47:50; Summary: Sinus Bradycardia WITHIN NORMAL LIMITS 27-Mar-2014 Bilat Scrn Digital & CAD Result: Comments: See Note; NOTES: [facility] Imaging Services [address] [place] [address] Breast Imaging Report MR#: [id number] Acct: [id number] Name: HERMAN LEONARD Rep #: [id number] : 1940 F 73 From: Michael Alonso MD PCP: Tessie Greene DO Status: REG CLI Exam# [id number] Ordering Dr: Tessie Greene DO MAMMOGRAPHY - [...] Michael Alonso MD at 9:36 EDT Tel [phone], Service support [phone], CC: Tessie Greene DO Behavioral Health Therapist: Signed 26-Mar-2013 Bilat Scrn Digital & CAD Result: Comments: See Note; NOTES: [facility] Imaging Services [address] [place] [address] Breast Imaging Report MR#: [id number] Acct: [id number] Name: HERMAN LEONARD Rep #: [id number] : 1940 F 72 From: Michael Alonso MD PCP: Tessie Greene DO Status: REG CLI Exam# [id number] Ordering Dr: Tessie Greene DO MAMMOGRAPHY - BILATERAL SCREENING REASON FOR EXAM: Femal e, 72 years old. Routine annual screening examination. [...] March 26, 2013 at 2:33:33 PM EDT [phone] Electronically Signed GP/GP If you are the referring physician and would like to consult with the radiologist who pr ovided this interpretation, please contact Michael Alonso M.D. at [phone]. If this radiologist is unavailable, you will be directed to another radiologist to assist. If you are a patient w ith a question regarding this report, please contact your referring physician directly. Professional Interpretation Provided By: [place], Phone , These documents contain legally protected [...] of these documents. CC: Tessie Greene DO Behavioral Health Therapist: Signed Immunization Name Dates Details Pneumococcal (2 years and up) on: 04-Apr-2006 Pneumococcal (2 years and up) on: 04-Apr-2006 Comments: Lot #:Expiration date:Amount given:Route: IMSite given:LEFT DELTOIDGiven by: JESSICA Weinberg Family History Unknown Family Member Name Dates Details Father Comments: [place] Status: Active Mother Comments: CHF Status: Active Paternal Grandmother Comments: ABD CA Status: Active Social History Name Dates Details Alcohol Use Comments: Occasional alcohol use Status: Active Non Smoker/No Tobacco Use Status: Active Tobacco use: Never smoker. Status: Active Smoking Status Name Dates Details Never smoker Vital Signs Date Test Result Details 52-Pzu-320516:44 Temperature 97.3 f Comments: Method: Temporal Pulse [...] kg/m2 Body Surface Area Calculated 1.58 m2 46-Xqz-073902:20 Comments: 140/82 recheck bp Pulse 65 /min [...] Height 0 in Head Circumference 0.00 cm : Temperature 98 f Comments: Method: Undefined Pulse [...] 0.00 cm Results Date Description Value Details 03-Iyl-67227:00 ASP DONE IN LAB See Note (Normal) Comments: [facility] [address] [place], [address] Comments: Patient: HERMAN LEONARD : 1940 (77/) Acct Num: [id number] Phys: Ria PLASCENCIA,Horton Unit Num: [id number] Loc: LAB Specimen: [id number] Received: 04/17/18 - 1238 Spec Type: ASP HERE TISSUES 1 TISSUES: [...] Submitted for cytology study. TC: 5 CPT: 27035, 017207, 45863 , 57745 CYTOLOGY STUDY Slides are reviewed. DIAGNOSIS CYTOLOGY Fine needle aspiration, right neck mass (smear, cell block): Negative for malignant cells. See comment. AM:sp 04/18/18 HEADER OPERATION: FNA, right neck mass PRE-OP DIAGNOSIS: Right neck mass TISSUE SUBMITTED: Right neck mass Signed Janes Arellano 11/15/18 <signature on file> 8-Kqt-555806:47 CREATININE FINGERSTICK Comments: [facility] LaboratoryPoint of [address] [place] [address] EGFR WB > 60.0000 mL/min (Normal) CREATININE WB 0.8 mg/dL (Normal) Range: 0.55-1.02 :40 Bilirubin, Direct Comments: Order Date: 03/13/17Order Info: 0788- [id number] - *Hepatic Function PanelOrder Info: [id number] - *Lipid Profile CC PCPComments: 12 hours fasting, may have water.DR PÉREZ ORDERED LIPID/LIVERDR VICKY ORDERED TS H/CBCD/LIPID/CMP/UA/[facility] [address] [place], [address] D BILI 0.11 mg/dL (Normal) Range: 0.00-0.30 :40 CBC W/Diff, Automated Comments: DR PÉREZ ORDERED LIPID/LIVERDR PERRY ORDERED TSH/CBCD/LIPID/CMP/UA/[facility] [address] [place], [address] SMEAR COMMENT SCANNED (Normal) Absolute [...] 4.2-5.4 WBC 5.8 K/mm3 (Normal) Range: 4.4-11.0 10-Ziz-61553:40 Comprehensive Metabolic Comments: Order Date: 03/13/17Order Info: [id number] - *Hepatic Function PanelOrder Info: [id number] - *Lipid Profile CC PCPComments: 12 hours fasting, may have water.DR PÉRZE ORDERED LIPID/LIVERDR VICKY ORDERED TS Profil H/CBCD/LIPID/CMP/UA/[facility] [address] [place], [address] GAP 5 (Normal) Range: 5-15 CO2 32.0 [...] Comments: Please note revised GLUCOSE reference range nkznlrpio24/02/2018. 66-Mhd-04117:40 Lipid Profile Comments: Order Date: 03/13/17Order Info: 0788-1 - *Hepatic Function PanelOrder Info: 61078-7 - *Lipid Profile CC PCPComments: 12 hours fasting, may have water.DR PÉREZ ORDERED LIPID/LIVERDR PERRY ORDERED TS H/CBCD/LIPID/CMP/UA/[facility] [address] [place], [address] VLDL 11 mg/dL (Normal) Range: 5-40 LDL [...] :40 Microalb:Creat Comments: DR PÉREZ ORDERED LIPID/LIVERDR VICKY ORDERED TSH/CBCD/LIPID/CMP/UA/[facility] [address] [place], [address] Ratio,Random UR MALB:CREAT 9.7 {mg/g_CRE} (Normal) MICROALBUMIN,UR 5.3 mg/L (Normal) UR CREAT 55.10 mg/dL (Normal) :40 Thyroid Stim Hormone Comments: Order Date: 03/13/17Order Info: [id number] - *Hepatic Function PanelOrder Info: [id number] - *Lipid Profile CC PCPComments: 12 hours fasting, may have water.DR PÉREZ ORDERED LIPID/LIVERDR VICKY ORDERED TS (TSH) H/CBCD/LIPID/CMP/UA/[facility] [address] [place], [address] TSH 1.84 {uIU/mL} (Normal) Range: 0.358-3.74 :40 Urinalysis, Complete Comments: DR PÉREZ ORDERED LIPID/JUNIOR PERRY ORDERED TSH/CBCD/LIPID/CMP/UA/MIACREHow was Urine Obtained? CLEAN [facility] [address] [place], [address] MUCUS, URINE 0 SEEN {/hpf} [...] (Normal) CLARITY Clear (Normal) COLOR Yellow (Normal) 08-Wqr-955121:44 URINE ALEX CULTURE-IDENTIFICATN Comments: PATIENT NOT FASTINGPERFORMED BY: [facility] [address]63 [facility] [id number] Information: [id number] (78924) Result 1 CNSNSS (Abnormal) Comments: Coagulase negative [...] SVancomycin S Urine Final report Culture,Compreh (Abnormal) ensive 59-Kkf-073874:10 Urinalysis, Office (53771) UA - LEUKOCYTE ESTERASE Small (Normal) UA - NITRITE Negative (Normal) URINE UROBILINGN JASMINE TIMED Normal mg/dL (Normal) UA - PROTEIN Negative mg/dL (Normal) UA - PH 7 (Normal) UA - BLOOD non-hemolyzed trace (Normal) UA - SPECIFIC GRAVITY 1.015 (Normal) UA - KETONES Negative mg/dL (Normal) UA - BILIRUBIN Negative (Normal) UA - GLUCOSE Negative (Normal) 23-Wyg-173565:16 Basic Metabolic Profile (BMP) Comments: [facility] [address] [facility] [address]. [place], [place], [address] ; will review at appt GAP 6 [...] 7-18 GLU 87 mg/dL (Normal) Range: 70-110 11-Txe-787504:25 URINE ALEX CULTURE (JASMINE Comments: PATIENT NOT FASTINGPERFORMED BY: Luv RinkDavid Ville [id number] [facility] [id number] Information: SRC:[facility] [place] F30207 COL COUNT) (67784) Result 1 NG36 (Normal) Comments: No growth in 36 - 48 hours. Urine Culture,Comprehensive Final report (Normal) 02-Hih-537195:44 Urinalysis, Office (87900) UA - LEUKOCYTE ESTERASE Negative (Normal) UA - NITRITE Negative (Normal) URINE UROBILINGN JASMINE TIMED Normal mg/dL (Normal) UA - PROTEIN Negative mg/dL (Normal) UA - PH 6.5 (Normal) UA - BLOOD Hemolyzed Trace (Normal) UA - SPECIFIC GRAVITY 1.010 (Normal) UA - KETONES Negative mg/dL (Normal) UA - BILIRUBIN Negative (Normal) UA - GLUCOSE Negative (Normal) 38-Red-500029:10 URINE ALEX CULTURE (JASMINE Comments: PATIENT NOT FASTINGPERFORMED BY: [facility] RinkSt. Mary's HospitalQzgmbd4310 [facility] [id number] Information: SRC:[facility] [place] G99724 COL COUNT) (74265) Antimicrobial MIHEAD (Normal) Comments: S = Susceptible; [...] mL (Abnormal) Urine Final report Culture,Comprehensive (Abnormal) 19-Mcp-337221:24 Urinalysis, Office (86069) UA - LEUKOCYTE ESTERASE Small (Normal) UA [...] 02-Feb-20157:28 Comprehensive Metabolic Profil Comments: Test performed at:[facility] [address] [facility]. [place], [place] [address] GAP 6 (Normal) Range: 5-15 CO2 29.0 [...] Comments: Please note revised CREATININE reference range qnwafddar86/22/2015. BUN 21 mg/dL (Abnormal) Range: 7-18 GLU 85 mg/dL (Normal) Range: 70-110 :28 Lipid Profile Comments: Test performed at:[facility] [address] [facility] [place] [address] ; non-emergent till apt VLDL 18 [...] 200-240 mg/dL Borderline >240 mg/dL High Risk 06-Rfu-96808:35 CBC W/Diff, Automated Comments: Test performed at:[facility] [address] [place] [address] ; non- emergent till apt [...] Range: 4.4-11.0 :35 CRP Comments: Test performed at:[facility] [address] [facility] [place] [address] C-REACTIVE PROT 38.60 mg/L (Abnormal) Range: 0.0-3.0 Comments: C-Reactive Protein (CRP) provides useful information for thediagnosis, therapy and monitoring of inflammatory processesand associated diseases. For the evaluation of Relative Riskfor Cardiovascular Dise ase, a High Sensitivity CRP (HSCRP)should be ordered. :35 Culture, Urine Comments: Test performed at:[facility] [address] [facility] [place] [address] CUUR See Note (Normal) Comments: Urine CultureCulture exhibits no growth. :35 Erythrocyte Sed Rate Comments: Test performed at:[facility] [address] [facility] [place] [address] SED RATE 24 mm/h (Normal) Range: 0-30 34-Tvk-294167:11 URINE ALEX CULTURE-JASMINE COL Comments: PATIENT NOT FASTINGPERFORMED BY: [facility] [address]d0974 [facility] [id number] Information: SRC:UR A75381 COUNT (82420) Result 1 NG36 (Normal) Comments: No growth in 36 - 48 hours. Urine Culture,Comprehensive Final report (Normal) 43-Hga-113827:11 Urinalysis, Office (19552) UA - LEUKOCYTE ESTERASE Small (Normal) UA - NITRITE Negative (Normal) URINE UROBILINGN JASMINE TIMED Normal mg/dL (Normal) UA - PROTEIN Trace mg/dL (Normal) UA - PH 6 (Abnormal) UA - BLOOD non-hemolyzed trace (Normal) UA - SPECIFIC GRAVITY 1.020 (Normal) UA - KETONES Negative mg/dL (Normal) UA - BILIRUBIN Negative (Normal) UA - GLUCOSE Negative (Normal) 46-Evt-766554:57 V-Zoster IgG (Immunity) Comments: Test performed at:[facility] [address] [place], [place] [address] VZOST IgG 14381 1894 {index} (Normal) Comments: Negative <135 Equivocal 135 - 165 Positive >165A positive result generally indicates exposure to thepathogen or adm inistration of specific immunoglobulins,but it is not indication of active infection or stageof disease.Performed at: [facility] [id number] Director: Bernardino grady PhD, Phone: [phone]; ADDENDA: has been seen in office since drawn 50-Oeh-33975:48 CBC W/Diff, Automated Comments: Test performed at:[facility] [address] [place] [address] Absolute Lymph 1.40 {X10_3/ul} (Normal) [...] 4.2-5.4 WBC 4.3 K/mm3 (Abnormal) Range: 4.4-11.0 :48 Comprehensive Metabolic Profil Comments: Test performed at:[facility] [address] [place], [place] [address] GAP 4 (Abnormal) Range: 5-15 CO2 28.0 [...] 70-110 :48 Lipid Profile Comments: Test performed at:[facility] [address] [place], [place] [address] VLDL 14 mg/dL (Normal) Range: 5-40 LDL [...] Thyroid Stim Hormone (TSH) Comments: Test performed at:[facility] [address] [place] [address] TSH 1.57 {uIU/mL} (Normal) Range: 0.358-3.74 :23 CBCD ALC 2.00 {X10_3/ul} (Normal) Range: 0.83-4.51 [...] CHOL 151 mg/dL (Normal) Comments: <200 mg/dL Fueltihut808-530 mg/dL Borderline>240 mg/dL High Risk :23 VZG 2963 {index} (Normal) Comments: Negative <135Equivocal 135 - 165Positive >165A positive result generally indicates exposure to thepathogen or administration of specific immunoglobulins,but it is not indicati on of active infection or stageof disease.Performed at: - [facility] [id number] Director: Bernardino Camargo PhD, Phone: [phone]; ADDENDA: normal and pt has apt tomorrow [...] CHOL 151 mg/dL (Normal) Comments: <200 mg/dL Ofjvyuwpc121-746 mg/dL Borderline>240 mg/dL High Risk :17 VITD [...] CHOL 127 mg/dL (Normal) Comments: <200 mg/dL Emtggvkpl233-681 mg/dL Borderline>240 mg/dL High Risk :49 CBCMD [...] CHOL 129 mg/dL (Normal) Comments: <200 mg/dL Swsodjjki730-574 mg/dL Borderline>240 mg/dL High Risk HDL 48 [...] 250 nm ol/L)Toxicity >100 ng/mL (250 nmol/L)Effective 201225-Jun-201233-Stx-866845:32 URINE ALEX CULTURE (JASMINE Comments: PATIENT NOT FASTINGPERFORMED BY: [facility] [address]vfg6493 [facility] [id number] Information: SRC:UR F59107 COL COUNT) (12155) Result 1 CNSNSS (Normal) Comments: Coagulase negative Staphylococcus species, not Staphylococcussaprophyticus.100 Colonies/mL .Based on resistance to penicillin and susceptibility to o xacillinthis isolate would be susceptible to:* Penicillinase-stable penicillins; such as: Cloxacillin Dicloxacillin Nafcillin* Beta-lactam/beta-lactamase inhibitor combinations; such as: Trego xicillin-clavulanic acid Ampicillin-sulbactam* Antistaphylococcal cephems; such as: Cefaclor Cefuroxime* Antistaphylococcal carbapenems; such as: Imipenem Meropenem S = Susceptibl e; I = Intermediate; R = Resistant P = Positive; N = Negative MICS are expressed in micrograms per mL Antibiotic RSLT#1 RSLT#2 RSLT#3 RSLT#4 Ciprofloxacin SGentamicin SLevofloxacin SNitrofurantoin SOxacillin SPenicillin RRifampin STetracycline STrimethoprim/Sulfa SVancomycin S Urine Final report Culture,Comprehensi (Normal) ve 58-Drj-126589:35 Urinalysis, Office (17827) UA - BILIRUBIN Negative (Normal) UA - BLOOD Hemolyzed Large (Normal) UA - GLUCOSE Negative (Normal) UA - KETONES Small mg/dL (Normal) UA - LEUKOCYTE ESTERASE Large (Normal) UA - NITRITE Negative (Normal) UA - PH 7.0 (Normal) UA - PROTEIN 100 mg/dL (Normal) UA - SPECIFIC GRAVITY 1.020 (Normal) URINE UROBILINGN JASMINE TIMED Normal mg/dL (Normal) 2-Tah-780671:19 Urinalysis, Office (68896) UA - BILIRUBIN Negative (Normal) UA - BLOOD Hemolyzed Trace (Normal) UA - GLUCOSE Negative (Normal) UA - KETONES Negative mg/dL (Normal) UA - LEUKOCYTE ESTERASE Negative (Normal) UA - NITRITE Negative (Normal) UA - PH 7.5 (Normal) UA - PROTEIN Negative mg/dL (Normal) UA - SPECIFIC GRAVITY 1.015 (Normal) URINE UROBILINGN JASMINE TIMED Normal mg/dL (Normal) 1-Xir-515404:11 URINE ALEX CULTURE-IDENTIFICATN Comments: PATIENT NOT FASTINGPERFORMED BY: ALEJO [facility] Klnqjg[address] [place] [id number] Information: [id number] ([id number]) Result 1 NG36 (Normal) Comments: No growth in 36 - 48 hours. Urine Culture,Comprehensive Final report (Normal) :33 CBCMD RBCM NORM C+C {NORMAL} (Normal) PE [...] 200-240 mg/dL Borderline >240 mg/dL High Risk :33 [facility] UMUC 0 SEEN {/hpf} (Normal) [...] (Normal) UCLAR Clear (Normal) UCOL Yellow (Normal) 3-Fxr-178692:50 RIBS UNIL 2V NO CXR Radiology Report [...] Signed:Mikhail Palencia MDNovember 2011 at 5:31:33 PM [id number] Signed TP/TP If you are the referring physician and would like to consult with theradiologist who provided this inter pretation, please contact Mikhail Palencia MD at [phone]. If this radiologist is unavailable, you will bedirected to another radiologist to assist. If you are a patient with a question regarding this re port, pleasecontactyour referring physician directly. Professional Interpretation Provided By: [employer], Phone , These documents contain legally protected [...] on 04/08/12 1737 by ITS IMPORTSign by Mihkail Palencia MD on 04/08/12 1738 Sign by: Mikhail Palencia MD 8-Iho-231460:01 BILAT SCRN DIGITAL & CAD Radiology Report [...] Alonso M.D.March 05, 2012 at 2:05:30 PM [id number] Signed GP/GP If you are the referring physician and would like to consult with theradiologist who provided this interpretation, please contact Stuart Wills at [phone]. If this radiologist is unavailable, youwill be directed to another radiologist to assist. If you are a patient with a question regarding this report, pleasecontactyour referring physician directly. Professional Interpretation Provided By: [employer], Phone , These documents contain legally protected [...] destructionofthese documents. Dictated on 03/05/12 1301 by Juan Alonso MDscribed on 03/05/12 1411 by ITS IMPORTSign by Michael Alonso MD on 03/05/12 1412 Sign by: Olga PLASCENCIA,Michael 05-Mar-20120:00 DEXA BONE DENSITY STUDY (HP) Radiology [...] Alonso M.D.March 05, 2012 at 2:52:24 PM [id number] Signed GP/GP If you are the referring physici an and would like to consult with theradiologist who provided this interpretation, please contact Stuart Wills at [phone]. If this radiologist is unavailable, youwill be directed to anot her radiologist to assist. If you are a patient with a question regarding this report, pleasecontactyour referring physician directly. Professional Interpretation Provided By: [employer]ango, Phone , These documents contain legally protected [...] 03/05/12 1322 by Chris Alonso MDranscribed on 03/05/121457 by ITS IMPORTSign by Michael Alonso MD on 1457 Sign by: Michael Alonso MD 55-Bgm-84307:26 CBCEM Comments: This patient requested that [facility] send to you acopy of [...] 7-18 GLU 80 mg/dL (Normal) Range: 70-110 :26 DC GIANT PLATELETS (Normal) Comments: [facility] you acopy of their Yearly Employee Health Risk Assessment.A copy of this report is also given to the patient so theycan follow up with your office if they choose. 99-Chb-79892:26 EMP Comments: This patient requested that [facility] to you acopy of their Yearly [...] :26 UAEM Comments: This patient requested that [facility] send to you acopy of [...] (Normal) UCLAR CLEAR (Normal) UCOL YELLOW (Normal) :01 VITD 45.5 ng/mL (Normal) Range: 30.0-100.0 Comments: Vitamin D deficiency has been defined by the [place] ofMedicine and an Endocrine Society practice guideline as alevel of serum 25-OH vitamin D less than 20 ng/mL (1,2).The Endocrine Society went on to further define vitamin Dinsufficiency as a level between 21 and 29 ng/mL (2).1. IOM ([place] of Medicine). 2010. Dietary reference intakes for calcium and D. [place]: The National Academies Press.2. Paxton MF, Rojelio OSPINA, Cortney GARIBAY, et al. Evaluation, treatment, and prevention of vitamin D deficiency: an Endocrine Society clinical practice guideline. JCEM. 2010; 96(7): 1911-30.Performed at: [address] [id number] Director: Korin Harris MD, Phone: [phone] 42-Ysv-835756:34 HEPATOBILIARY IMAGING Radiology Report See Note (Normal) [...] radiologist regarding this report, please call our [id number] line @ Dictated on 05/31/11 0818 by Ehsan Vázquez DOTranscribed on 05/31/112030 by ITS IMPORTSign by Ehsan Vázquez DO on 05/31/112031 Sign by: Ehsan Vázquez DO 13-Khz-686117:54 TOE(S),MIN 2 VIEWS Radiology Report See Note [...] regarding this rep ort, please call our [id number] line @ Dictated on 05/30/11 1150 by ARNEL TORRESTranscribed on 05/30/112228 by ITS IMPORTSign by ARNEL TORRES on 05/30/112229 Sign by: ARNEL TORRES :21 GALLBLADDER Radiology Report See Note (Normal) Comments: [...] of the right kidney. The right kidn .6 x 4.7 x 4.0 cm. Normal renal [...] SHELTON MD on 05/02/11 1224 Sign by: MAIA SHELTON MD 52-Ime-824444:02 CBCD,SMEAR DIFF Comments: appt 05/17/11 RED CELL [...] 7-18 GLU 76 mg/dL (Normal) Range: 70-110 :02 TROPONIN-I < 0.02 ng/mL (Normal) Comments: TROPONIN-I EXPECTED VALUES <0.05 NEGATIVE 0.06 - 0.59 AT RISK OF MN > OR = 0.60 SUGGEST MN :11 ANKLE,MIN 3 VIEWS Radiology Report See [...] 12/14/10 1005 Sign by: GISSELLE GONZALES MD 19-Ial-39122:52 URINE ALEX CULTURE (JASMINE COL Comments: PATIENT NOT FASTINGPERFORMED BY: [facility] [id number] COUNT) (03559) Result 1 NG36 (Normal) Comments: No growth in 36 - 48 hours. Urine Culture,Comprehensive Final report (Normal) 45-Vxd-18611:07 Urinalysis, Office (87733) UA - BILIRUBIN Negative (Normal) UA - BLOOD Hemolyzed Trace (Normal) UA - GLUCOSE Negative (Normal) UA - KETONES Negative mg/dL (Normal) UA - LEUKOCYTE ESTERASE Negative (Normal) UA - NITRITE Negative (Normal) UA - PH 7.5 (Normal) UA - PROTEIN Negative mg/dL (Normal) UA - SPECIFIC GRAVITY 1.015 (Normal) URINE UROBILINGN JASMINE TIMED Normal mg/dL (Normal) 04-Feb-20107:37 LIPID LDL 81 mg/dL (Normal) Range: 0-130 VLDL 13 mg/dL (Normal) Range: 5-40 CHOL 150 mg/dL (Normal) Comments: <200 mg/dL Bhjvvfgwp249-064 mg/dL Borderline>240 mg/dL High Risk HDL 56 [...] CHOL 150 mg/dL (Normal) Comments: <200 mg/dL Pexjkacds795-234 mg/dL Borderline>240 mg/dL High Risk LDH 160 [...] 6.4-8.2 URIC 4.2 mg/dL (Normal) Range: 2.6-6.0 :36 EMP URINALYSIS LEUK ESTERASE SeeNote (Normal) Comments: [...] (Normal) Comments: Result: NEGATIVE COLOR YELLOW (Normal) 65-Jhq-413346:10 BILAT SCRN DIGITAL & CAD Radiology See Note Comments: Exam Number: [id number] MAMMOGRAPHY - BILATERAL SCREENING INDICATION:Routine annual screening [...] not delay biopsy of a clinicallysuspicious abnormality.ADDENDUM: [id number] HPBI/MDS MAMMOGRAPHY - BILATERAL SCREENING INDICATION:Routine annua l [...] attach ing a ResultCode to this exam.ADDENDUM: [id number] HPBI/MDS Reported By: GISSELLE GONZALES M.D. 58-Ibz-957123:09 DEXA BONE DENSITY STUDY (HP) Radiology Report See Note Comments: Exam Number: [id number] CLINICAL:The patient is a 69-year-old female who is postmenopausal with pasthistory of hormone replacement therapy. History of fracture of M3xnuqlu history of osteoporosis EXAMINA (Normal) TION:DUAL ENERGY X-RAY ABSORPTIOMETRY / DEXA. TECHNIQUE:Bone Density Measurements (BMD) of lumbar spine and bilateral hipswere obtained using a [employer] scanner. COMPARISON:March 24 999, October 29, 2002, [...] NIH Osteoporosis and Related Bone Diseases http://www.osteo.org2. Photo Mask Pattern Generator ational Society for Clinical Densitometryhttp://www.iscd.org3. National Osteoporosis Foundation http://www.nof.org Reported By: GISSELLE GONAZLES M.D. 24-Dec-19 VIT D,25 35309 39.0 ng/mL Range: 32.0-100.0 1012:08 (Normal) Comments: Recent studies consider the lower limit of 32.0 ng/mL to isabel threshold for optimal health.Sheng BURNETT. J Nutr. 2004;135(2):317- 22.Performed at: [place] [id number]Lab Director: Korin Harris MD, Phone: [phone] 29-Oct-19 C DIF TOXIN/AG See Note Comments: C. DIFF ANTIGENS NEGATIVE 105:40 (Normal) :40 CUL STOOL/SHIG SHIGA-TOXIN See Note (Normal) Comments: [...] Crytosporidium parvum,Cyclospora, or Microsporidia.__ TESTING PERFORMED AT [facility]. ORIGINAL REPORT ONFILE IN LAB CONTAINS ADDITIONAL TEST SITE INFORMATION. OVA/ PARASITES EXAM NO OVA, CYSTS, OR PARASITES FOUND. :40 WBC,STOOL See Note (Normal) Comments: FECAL WBCs NONE SEEN 21-Thw-423865:25 ABDOMEN/PELVIS WITH CONTRAST Radiology Report See Note (Normal) Comments: Exam Number: [id number] CLINICAL:This is a 68-year-old female patient with history of left lowquadrant pain. CT ABDOMEN AND PELVIS WITH CONTRAST TECHNIQUE:Transaxial images were obtained from the dome of the diaphragm tothe symphysis pubis with oral contrast. 100 ml of Isovue- 300contrast was administered intravenously. Multiplanar coronal andsagittal images were reformatted. COMPARISON:Comparison is ma maría with prior study dated December 30, 2007. [...] T PROT 7.7 g/dL (Normal) Range: 6.4-8.2 :56 COMPLETE UA BACTERIA RARE {/hpf} (Normal) LEUK [...] SED RATE 48 mm/h (Abnormal) Range: 0-30 14-Lqt-373432:55 URINE ALEX CULTURE (JASMINE Comments: PATIENT NOT FASTINGPERFORMED BY: [facility] Kziddg3961 [facility] [id number] Information: SRC:UR G72497 COL COUNT) (08721) Result 1 NG36 (Normal) Comments: No growth in 36 - 48 hours. Urine Culture,Comprehensive Final report (Normal) 13-Jxo-731208:20 Urinalysis, Office (60309) UA - LEUKOCYTE ESTERASE Small (Normal) UA - NITRITE Negative (Normal) URINE UROBILINGN JASMINE TIMED 2 mg/dL (Normal) UA - PROTEIN Negative mg/dL (Normal) UA - PH 7.0 (Normal) UA - BLOOD Hemolyzed Trace (Normal) UA - SPECIFIC GRAVITY 1.015 (Normal) UA - KETONES Negative mg/dL (Normal) UA - BILIRUBIN Negative (Normal) UA - GLUCOSE Negative (Normal) 61-Pxm-15626:11 BREAST UNILATERAL US (HP) Radiology Report See Note (Normal) Comments: Exam Number: [id number] CLINICAL:The patient is a 68-year-old female with [...] CHOL 147 mg/dL (Normal) Comments: <200 mg/dL Hfesfdses827-541 mg/dL Borderline>240 mg/dL High Risk :03 LIVER ALB 4.2 g/dL (Normal) Range: 3.4-5.0 ALK P 66 U/L (Normal) Range: 50-136 ALT 29 U/L (Normal) Range: 12-78 AST 20 U/L (Normal) Range: 15-37 D BILI 0.09 mg/dL (Normal) Range: 0.00-0.30 T BILI 0.30 mg/dL (Normal) Range: 0.00-1.00 T PROT 7.9 g/dL (Normal) Range: 6.4-8.2 :41 Urinalysis, Office (72346) UA - LEUKOCYTE ESTERASE Trace (Normal) UA [...] Report See Note (Normal) Comments: Exam Number: [id number] CLINICAL: 68-year-old female with knee pain lateral [...] a full thickness radial tear of the dot compliance manager ior horn of the medial meniscus extending [...] last examination. Reported By: John Alcocer M.D. 6-Kav-542689:24 KNEE,4 OR MORE VIEWS (MT) Radiology Report See Note (Normal) Comments: Exam Number: [id number] CLINICAL:Pain X-RAY EXAMINATION RIGHT KNEE TECHNIQUE:4 view(s) [...] change. Osteopenia. Reported By: ARIADNA PERAZA M.D. 8-Kwz-339574:23 L/S SPINE,MIN 4 VIEWS (MT) Radiology Report See Note (Normal) Comments: Exam Number: [id number] CLINICAL:Low back pain, radiculopathy X-RAY EXAMINATION: LUMBAR [...] acute fracture. Reported By: ARIADNA PERAZA M.D. 0-Lja-712683:00 EMP URINALYSIS BILIRUBIN URINE SeeNote (Normal) Comments: [...] Range: 0.2 - 1.0 COLOR YELLOW (Normal) 6-Vou-867636:00 ROUTINE UA BILIRUBIN URINE SeeNote (Normal) Comments: [...] 500 mg/dL VLDL 25 mg/dL (Normal) Range: -40 :18 TSH 1.91 {uIU/mL} (Normal) Range: 0.358-3.74 [...] 6.4-8.2 URIC 4.3 mg/dL (Normal) Range: 2.6-6.0 64-Pjc-49981:31 DEXA BONE DENSITY STUDY () Radiology Report See Note (Normal) Comments: Exam Number: [id number] BONE DENSITOMETRY HISTORYOsteopenia. TECHNIQUE Bone densitometry of the lumbar spine and both hips is now beingperformed. The best criteria for evaluation of osteoporosis is theT-value, which represents the comparison of the patient's bone mass leigh expected peak bone mass. For most patients, the mean T-value of S0deupcse L4 is used to evaluate the lumbar [...] density is measured at 7.2% less than dz3934.The T-valu e of the right femoral neck is -2 which is in the range ofosteopenia.The T- value of the total right hip is -1.7 which is in the range ofosteopenia. IMPRESSIONThere is osteopenia of the lumbar spine and both hips. Reported By: GISSELLE GONZALES M.D. 66-Waz-55806:54 BREAST UNILATERAL US () Radiology Report See Note (Normal) Comments: Exam Number: [id number] TARGETED LEFT BREAST ULTRASOUND HISTORYAbnormal mammogram. High-resolution [...] Greene's office and the office was called ww0759 hours December 22, 2008. Reported By: GISSELLE GONZALES M.D. 79-Lsm-519867:35 [facility] DIAG DIGITAL & CAD Radiology Report See Note (Normal) Comments: Exam Number: [id number] MAMMOGRAM, UNILATERAL LEFT DIAGNOSTIC DIGITAL AND CAD [...] and small nodules,ultrasound is recommended. The pa tiemelania preferred to schedule theultrasound December 21, 2008, rather than having it performed at thistime. IMPRESSIONThere are 2 densities in the upper left breast for which ultrasound isrecommended. The pa hector preferred to schedule the ultrasound forJuly 2008, rather than having it performed at the current time. FINAL ASSESSMENTNeed additional imaging evaluation. BIRADS Category 0. A letter regardi ng these results has been sent to the patient. This interpretation was rendered by a radiologist certified under theMammography Quality Standards Act of 1992 (MQSA). The mammograms werealso examined w [facility] computer-aided detection software ([employer], [employer].). Reported By: GISSELLE GONZALES M.D. :30 BILAT SCRN DIGITAL & CAD Radiology Report See Note (Normal) Comments: Exam Number: [id number] MAMMOGRAM, BILATERAL SCREENING DIGITAL AND CAD HISTORYRoutine [...] was rendered by a radiologist certified under eMammography Quality Standards Act of 1992 (MQSA). The mammograms werealso examined with computer-aided detection software ([employer] Reported By: GISSELLE GONZALES M.D. 32-Keq-492417:37 BMP BUN 15 mg/dL (Normal) Range: 7-18 [...] g/dL (Normal) Range: 6.4-8.2 :11 AT3 F/I 48669 AT3 AG, IMMUNOL 131 % (Abnormal) Range: 75-130 AT3 FUNCT 57110 131 % (Normal) Range: 75-135 :11 PROT C 695146 PROT C,WS728450 169 % (Abnormal) Range: 74-151 Comments: Performed At: [address] [id number] PROTEIN C 92358 106 % (Normal) Range: 70-140 :11 PROT S 274581 PROTEIN S, FREE 107 % (Normal) Range: 56-124 PROTEIN S, FUNC 82 % (Normal) Range: 60-145 PROTEIN S,TOTAL 137 % (Normal) Range: 58-150 :38 A-CARDIO 982070 Comments: ORDER ALSO STATES ANTIPHOSPHOLIPIDS, WHICH IS [...] mm/h (Normal) Range: 0-30 :38 FAC II 138047 Comments: ORDER ALSO STATES ANTIPHOSPHOLIPIDS, WHICH IS A SYNONYM OFANTICARDIOLIPIN FACTOR II,DNA Comment (Normal) Comments: NEGATIVENo mutation identified.Comment:A point mutation (L30931Z) in the Factor II (prothrombin)gene is the [...] antithrombinIII, protein C and protein S. :38 [facility] [id number] Comments: ORDER ALSO STATES ANTIPHOSPHOLIPIDS, WHICH IS [...] , elevatedhomocysteine levels, or a Factor II/prothrombin mutation(O68170W). Contact you r local [facility] for information [...] mg/dL VLDL 31 mg/dL (Normal) Range: 5-40 85-Oea-027228:35 CULTURE, URINE URINE CULTURE See Note (Normal) Comments: Predominant colony type being a gram positive trevor, probableLactobacillus species. COLONY COUNT 50,000-80,000 ORGANISM 1: MIXED GRAM POSITIVE ORGANISMS 59-Hkw-779609:35 ROUTINE UA BILIRUBIN URINE SeeNote (Normal) Comments: [...] 0.2 EU/dl (Normal) Range: 0.2 - 1.0 38-Xmj-48925:48 Urinalysis, Office (76605) UA - BILIRUBIN Negative (Normal) UA - BLOOD Negative (Normal) UA - GLUCOSE Negative (Normal) UA - KETONES Negative mg/dL (Normal) UA - LEUKOCYTE ESTERASE Trace (Normal) UA - NITRITE Negative (Normal) UA - PH 6.5 (Normal) UA - PROTEIN Negative mg/dL (Normal) UA - SPECIFIC GRAVITY 1.005 (Normal) URINE UROBILINGN JASMINE TIMED 2 mg/dL (Normal) 1-Pqx-709777:04 BILAT SCRN DIGITAL & CAD Radiology Report See Note (Normal) Comments: Exam Number: [id number] MAMMOGRAM, BILATERAL SCREENING DIGITAL AND CAD HISTORYRoutine [...] werea lso examined with computer-aided detection software ([employer] Reported By: GISSELLE GONZALES M.D. 5-Xdx-410501:41 DEXA BONE DENSITY STUDY (HP) Radiology Report See Note (Normal) Comments: Exam Number: [id number] BONE DENSITOMETRY HISTORYOsteopenia. TECHNIQUE Bone densitometry of [...] density is measured at 0.2% less than af1628 and 0.1% more than in 2005. IMPRESSIONThere is osteopenia of the lumbar spine and left hip. Reported By: GISSELLE GONZALES M.D. 85-Aqv-24532:19 CBC, EMPLOYEE HCT 36.9 % (Abnormal) Range: [...] 4234 Comments: DATE STARTED 05/12/07, TIME STARTED 06DATE ENDED 05/13/07, TIME ENDED 0600 METANEPH,U24 64 {ug/24_hr} (Normal) Range: 35-460 METANEPHRINE,UR 41 ug/L (Normal) NORMETANEPH,U24 301 {ug/24_hr} (Normal) Range: 110-1050 NORMETANEPH,UR 194 ug/L (Normal) :00 VMA,U24 4143 Comments: DATE STARTED 05/12/07, TIME STARTED 06DATE ENDED 05/13/07, TIME ENDED 0600 VMA,24UR 5.3 {mg/24_hr} (Normal) Range: 1.8-6.7 Comments: Performed At: [address] [id number] VMA,UR 3.4 mg/L (Normal) :16 ALDOST,U24 4291 Comments: 24 H URINE TV = 2580 ML ALDOSTERONE,U24 3 {ug/24_hr} (Normal) Range: 2-21 Comments: 1 mo. 1 - 11 1- 12 mos. 1 - 22 1- 16 yrs. 2 - 16 Adult Ranges Normal diet 2 - 21 Low salt 17 - 44 High salt 0 - 14Performed At: [address] [id number] ALDOSTERONE,UR 1 ug/L (Normal) 37-Lon-179835:17 BRAIN/HEAD W/WO CONTRAST Radiology Report See Note (Normal) Comments: Exam Number: [id number] CT SCAN OF BRAIN HISTORYHeadache. Scans were [...] ethmoid sinusitis. Reported By: GISSELLE GONZALES M.D. 28-Vmk-86107:51 CBC With Differential/Platelet Comments: PERFORMED BY: [facility]St[facility] HospitalLjqohf1548 [facility] [id number] Baso (Absolute) 0.1 {x10E3/uL} (Normal) Range: 0.0-0.2 [...] Comp. Metabolic Panel (14) Comments: PERFORMED BY: [facility]St[facility] HospitalZipvtu[address] [place] [address] [id number] A/G Ratio 1.5 (Normal) Range: 1.1-2.5 Albumin, [...] Sedimentation 4 mm/h (Normal) Comments: PERFORMED BY: [facility] HospitalDbgpqa0858 [facility] [id number] :51 Rate-Westergren Range: 0-30 :29 CULTURE, URINE URINE CULTURE See Note {CFU/mL} (Normal) Comments: COLONY COUNT >100,000 ORGANISM 1: ENTEROCOCCUS FAECALIS ENTEROCOCCUS FAECALIS: REACTION CIPROFLOXACIN GP $$$ <=0.5 S LEVOFLOXAC IN $$ <=1 S NITROFURANTOIN $ <=32 S PENICILLIN G (ENTEROCOCCUS) $$ 2 S TETRACYCLINE $$ <=1 S VANCOMYCIN $$ <=0.5 S 9-Oec-065332:29 ROUTINE UA BILIRUBIN URINE SeeNote (Normal) Comments: [...] Fragments of colonic mucosa, no pathologic diagnosis. BETSEY:chente 04/11/06 GROSS DESCRIPTION A - Received in [...] tissue mass Soft tissue mass : Reviewed Food And Nutrition Services Supervisor Letter Indication: Soft tissue mass Gastroesophageal reflux [...] EASY BRUISABILITY OF SKIN Planned Observations TSH (02525)Indication: Hypercholesterolemia On: Request URINALYSIS, W/ MICRO (03998)Indication: Essential hypertension On: Request MICROALBUMIN: CREATININE RATIO (91269) AND (75759)Indication: Essential hypertension On: : Request METABOLIC PANEL, COMPREHENSIVE (23683)Indication: Essential hypertension On: Request LIPOPROTEIN, BLD, BY NMR (49899)Indication: Hypercholesterolemia On: 28-Mcm-273079:41 Request CBC W/AUTO DIFF WBC (82739)Indication: Essential hypertension On: 17-Uml-227369:41 Request TSH (67648)Indication: Hypercholesterolemia On: :51 Request URINALYSIS, W/ MICRO (24484)Indication: Essential hypertension On: :51 Request MICROALBUMIN: CREATININE RATIO (98605) AND (00372)Indication: Essential hypertension On: :51 Request METABOLIC PANEL, COMPREHENSIVE (86126)Indication: Essential hypertension On: :51 Request LIPID PANEL (97229)Indication: Essential hypertension On: :51 Request CBC W/AUTO DIFF WBC (52253)Indication: Essential hypertension On: :51 Request Metabolic Panel, Basic (92199)Indication: Essential hypertension On: 05-Kni-755272:32 Request Comments: 2 weeks Vitamin D Hydroxy (28409)Indication: Osteopenia On: :23 Request URINALYSIS, W/ MICRO (38380)Indication: Essential hypertension On: :23 Request CBC W/AUTO DIFF WBC (60782)Indication: Essential hypertension On: :23 Request METABOLIC PANEL, COMPREHENSIVE (93919)Indication: Essential hypertension On: :23 Request LIPID PANEL (07685)Indication: Hypercholesterolemia On: :22 Request SED RATE ERYTHROCYTE (45123)Indication: Abdominal pain, acute, generalized On: :47 Request C-REACTIVE PROTEIN (17406)Indication: Abdominal pain, acute, generalized On: :47 Request CBC with auto diff (28024)Indication: Abdominal pain, acute, generalized On: :46 Request URINALYSIS, W/ MICRO (38419)Indication: Essential hypertension On: :27 Request LIPID PANEL (10993)Indication: Hypercholesterolemia On: :27 Request METABOLIC PANEL, COMPREHENSIVE (97069)Indication: Essential hypertension On: :26 Request VARICELLA-ZOSTER ANTBODY (10305)Indication: Hypercholesterolemia On: 09-Pmp-110850:58 Request TSH (07030)Indication: Anxiety associated with depression On: :12 Request LIPID PANEL (76980)Indication: Hypercholesterolemia On: :12 Request CBC W/AUTO DIFF WBC (73311)Indication: Essential hypertension On: :12 Request METABOLIC PANEL, COMPREHENSIVE (59403)Indication: Essential hypertension On: :12 Request VARICELLA-ZOSTER ANTBODY (04062)Indication: screen On: :59 Request CBC WITH MANUAL DIFF (45712)Indication: Essential hypertension On: 13-Gkb-961899:59 Request LIPID PANEL (25383)Indication: Hypercholesterolemia On: :58 Request METABOLIC PANEL, COMPREHENSIVE (66598)Indication: Essential hypertension On: 32-Fma-716188:58 Request Vitamin D Hydroxy (50044)Indication: Osteopenia On: :33 Request METABOLIC PANEL, COMPREHENSIVE (10026)Indication: Essential hypertension On: :33 Request LIPID PANEL (68162)Indication: Hypercholesterolemia On: :33 Request METABOLIC PANEL, COMPREHENSIVE (85594)Indication: Essential hypertension On: :57 Request LIPID PANEL (90923)Indication: Hypercholesterolemia On: :56 Request Vitamin D Hydroxy (99779)Indication: Anxiety associated with depression On: 27-Zvx-461919:51 Request CBC WITH MANUAL DIFF (81471)Indication: Essential hypertension On: 71-Zhp-360208:51 Request METABOLIC PANEL, COMPREHENSIVE (78797)Indication: Essential hypertension On: 05-Wqn-433970:51 Request TSH (39258)Indication: Anxiety associated with depression On: 24-Atw-009629:51 Request LIPID PANEL (57206)Indication: Hypercholesterolemia On: 63-Dvz-470496:50 Request CBC WITH MANUAL DIFF (38906)Indication: Essential hypertension On: :30 Request METABOLIC PANEL, COMPREHENSIVE (64143)Indication: Essential hypertension On: :25 Request LIPID PANEL (47268)Indication: Hypercholesterolemia On: :25 Request URINALYSIS, W/ MICRO (87701)Indication: Essential hypertension On: 43-Pri-374586:08 Request CBC WITH MANUAL DIFF (63352)Indication: Essential hypertension On: 89-Mzo-604252:08 Request METABOLIC PANEL, COMPREHENSIVE (20733)Indication: Essential hypertension On: 40-Jrk-510892:06 Request LIPID PANEL (81208)Indication: Hypercholesterolemia On: 81-Kwf-219720:06 Request LIPID PANEL (07956)Indication: Hypercholesterolemia On: :28 Request CBC WITH MANUAL DIFF (28444)Indication: Essential hypertension On: :28 Request METABOLIC PANEL, COMPREHENSIVE (14702)Indication: Essential hypertension On: :28 Request METABOLIC PANEL, COMPREHENSIVE (86317)Indication: Essential hypertension On: :48 Request Vitamin D Hydroxy (38742)Indication: Depression On: :48 Request LIPID PANEL (79660)Indication: Hypercholesterolemia On: 99-Wct-990573:47 Request CBC WITH MANUAL DIFF (62260)Indication: Other chest pain On: 73-Fpr-756110:19 Request METABOLIC PANEL, COMPREHENSIVE (66020)Indication: Other chest pain On: 89-Uhq-372586:18 Request ASSAY, TROPONIN, QUANTITATIVE (aka Troponin I) (25354)Indication: Other chest pain On: 66-Ttq-855769:18 Request Comments: stat CALCIFEDIOL (66012)Indication: Eczema (Renamed from Dermatitis, eczematoid) On: 21-Yww-256943:34 Request OVA & PARASITE DIR SMEAR ([id number])Indication: Diarrhea (Renamed from D (diarrhea)) On: 92-Lsf-648495:11 Request LEUKOCYTE COUNT, FECAL ([id number])Indication: Diarrhea (Renamed from D (diarrhea)) On: 63-Muj-154393:10 Request C.Difficile, Stool ([id number])Indication: Diarrhea (Renamed from D (diarrhea)) On: 04-Nvv-978703:10 Request ALEX CULTURE-STOOL ([id number])Indication: Diarrhea (Renamed from D (diarrhea)) On: 24-Kai-280776:10 Request SED RATE ERYTHROCYTE ([id number])Indication: Abdominal pain, acute, left lower quadrant On: 36-Bpg-597895:10 Request C-REACTIVE PROTEIN ([id number])Indication: Abdominal pain, acute, left lower quadrant On: 98-Mqc-523056:10 Request URINALYSIS, W/ MICRO ([id number])Indication: Abdominal pain, acute, left lower quadrant On: 25-Yxf-265509:10 Request METABOLIC PANEL, COMPREHENSIVE ([id number])Indication: Abdominal pain, acute, left lower quadrant On: 83-Kwm-464439:10 Request CBC WITH MANUAL DIFF ([id number])Indication: Abdominal pain, acute, left lower quadrant On: 63-Han-514369:10 Request METABOLIC PANEL, COMPREHENSIVE ([id number])Indication: Essential hypertension On: 05-Dik-206726:47 Request HEPATIC FUNCTION PANEL ([id number])Indication: Hypercholesterolemia On: :47 Request LIPID PANEL ([id number])Indication: Hypercholesterolemia On: :47 Request Vitamin D Hydroxy ([id number])Indication: Osteopenia On: :46 Request LIPID PANEL ([id number])Indication: Hypercholesterolemia On: :38 Request HEPATIC FUNCTION PANEL ([id number])Indication: Hypercholesterolemia On: :38 Request Metabolic Panel, Basic ([id number])Indication: DISORDERS, ORGANIC, SLEEP RELATED LEG CRAMPS On: 58-Nmm-364776:17 Request URINALYSIS W/O MICRO ([id number])Indication: Essential hypertension On: :48 Request TSH ([id number])Indication: Essential hypertension On: :48 Request METABOLIC PANEL, COMPREHENSIVE ([id number])Indication: Essential hypertension On: 7-Wly-253799:48 Request CBC WITH MANUAL DIFF ([id number])Indication: Essential hypertension On: :48 Request LIPID PANEL ([id number])Indication: Hypercholesterolemia On: :48 Request CBC WITH MANUAL DIFF ([id number])Indication: Anemia, unspecified On: 14-Jtf-26625:51 Request LIPID PANEL ([id number])Indication: Hypercholesterolemia On: :31 Request HEPATIC FUNCTION PANEL ([id number])Indication: Hypercholesterolemia On: :41 Request LIPID PANEL ([id number])Indication: Hypercholesterolemia On: :41 Request SED RATE ERYTHROCYTE ([id number])Indication: Headache (Renamed from Cephalalgia) On: 28-Hrc-04606:40 Request METABOLIC PANEL, COMPREHENSIVE ([id number])Indication: Headache (Renamed from Cephalalgia) On: :39 Request CBC WITH MANUAL DIFF ([id number])Indication: Headache (Renamed from Cephalalgia) On: :39 Request CBC WITH MANUAL DIFF ([id number])Indication: EASY BRUISABILITY OF SKIN On: :59 Request PTT (ACTIVATED PARTIAL THROMBOPLASTIN TIME) ([id number])Indication: EASY BRUISABILITY OF SKIN On: :59 Request PT (PROTHROMBIN TIME) ([id number])Indication: EASY BRUISABILITY OF SKIN On: :59 Request HEPATIC FUNCTION PANEL ([id number])Indication: Hypercholesterolemia On: :54 Request LIPID PANEL ([id number])Indication: Hypercholesterolemia On: :54 Request Planned Encounters Medical; 2 Week FU - On: 03-May-2018 11:45 [facility] Catrina Perry DO, DO, [facility]; 4 Month FU - On: 16-Aug-2018 10:00 [facility] Catrina Perry DO, DO, Kathleen Planned Procedures CT OF NECK WITHOUT THEN WITH On: 09-Apr-2018 Intent INTRAVENOUS CONTRAST ([id number])By: Comments: include thyroid Acacia Whaley CNP Ultrasound - ThyroidBy: Jovana OJEDA, On: 09-Apr-2018 Intent Acacia Wang Comments: attetion soft tissue rt side of neck Flu Vaccine (Quadrivalent) [id number]: On: 13-Mar-2018 Intent Ladi Max Comments: Lot #[id number]-L dltd, IMDose prefilled syringegiven by:SABINA Mclain reviewed and ABN signed FLAT PLATE ([id number])By: Jovana OJEDA, On: 19-Dec-2017 Intent Acacia Wang ELECTROCARDIOGRAM, COMPLETE (ECG) On: 12-Dec-2017 Intent ([id number])By: Catrina Perry DO Comments: nsr no acute chg Catrina Perry DO Bone Density StudyBy: Tessie Greene DO On: 10-May-2015 Intent A Comments: screening ADMINISTRATION OF INFLUENZA VIRUS On: 05-Feb-2015 Intent VACCINE ([id number])By: Tessie Greene DO A Flu Vaccine (Quadrivalent) [id number]: On: 05-Feb-2015 Intent Tessie Greene DO Comments: Lot:[id number]:09/01/15Dose:0.5mLRoute:IMSite:L DltdGiven By:MARTY signed MAMMOGRAM, SCREENING, BOTH BREAST On: 05-Feb-2015 Intent ([id number])By: Tessie Greene DO Comments: reilly DEXA SCAN AXIAL SKELETON ([id number])By: On: 05-Feb-2015 Intent Tessie Greene DO Comments: reilly Solu -Medrol Injection, 125 mg On: 09-Dec-2014 Intent ([id number])By: Acacia Whaley CNP Comments: lot:[id number]:route:IMdose:125MGsite: R glutGiven by: ROSANGELA Gamble MAMMOGRAM, SCREENING, BOTH BREAST On: 13-Mar-2014 Intent ([id number])By: Tessie Greene DO ADMINISTRATION OF INFLUENZA VIRUS On: 13-Mar-2014 Intent VACCINE (G0008)By: Tessie Greene DO FLU VAC, SPLIT, >3 YEARS, INTRAMUSC On: 13-Mar-2014 Intent ([id number])By: Tessie Greene DO Comments: lot: [id number]: 12-01-13site/route: L del/IMamt: 0.5mLVIS signed when applicableROSANGELA Villa Eprescribed prescriptions ([id number])By: On: 16-Sep-2013 Intent Tessie Greene DO Eprescribed prescriptions ([id number])By: On: 18-Mar-2013 Intent Libby Herndon FLU VAC, SPLIT, >3 YEARS, INTRAMUSC On: 20-Feb-2013 Intent ([id number])By: Fallon Carranza Comments: Lot:[id number]:Dose:0.5mLRoute:IMSite:L DltdGiven By:MARTY signed IMMUNIZ ADMNIN, 1 VAC, SNGL/COMBO On: 20-Feb-2013 Intent ([id number])By: Fallon Carranza MAMMOGRAM, SCREENING, BOTH BREASTS On: 31-Dec-2012 Intent ([id number])By: Tessie Greene DO Eprescribed prescriptions ([id number])By: On: 11-Nov-2012 Intent Libby Herndon Eprescribed prescriptions ([id number])By: On: 23-Sep-2012 Intent Libby Herndon EKG ([id number])By: Libby Herndon On: 21-Aug-2012 Intent Comments: ekg showed normal sinus rhythym, normal axis, no acute st/t wave changes Eprescribed prescriptions ([id number])By: On: 25-Jun-2012 Intent Tanya Bermudez LPN PNEUM VAC ADLT/IMUMNOSPR, SBC/INTRM On: 03-May-2012 Intent ([id number])By: Tessie Greene DO Comments: Lot:[id number]:08-06-13Dose:0.5mLRoute:IMSite:L armGiven By:AGA ADMINISTRATION OF PNEUMOCOCCAL On: 03-May-2012 Intent VACCINE (G0009)By: Tessie Greene DO Eprescribed prescriptions ([id number])By: On: 03-May-2012 Intent Libby Herndon Krgtgpzsp-Tzl-Zvwxr ([id number])By: Jovana On: 08-Apr-2012 Intent Acacia OJEDA DXA, BONE DENSITY, AXIAL SKELETON On: 30-Jan-2012 Intent ([id number])By: Tessie Greene DO MAMMOGRAM, SCREENING, BOTH BREASTS On: 30-Jan-2012 Intent ([id number])By: Tessie Greene DO IMMUNIZ ADMNIN, 1 VAC, SNGL/COMBO On: 30-Jan-2012 Intent ([id number])By: Megan Phillips LPN Comments: Lot/Exp: [id number], 11/2011Given in L Dltd, IMPrefilled SyringeBy ROEL Guzman FLU VAC, SPLIT, >3 YEARS, INTRAMUSC On: 30-Jan-2012 Intent ([id number])By: Megan Phillips LPN Breast Screening - BilateralBy: Jc On: 30-Jan-2012 Tessie Bueno DO Eprescribed prescriptions ([id number])By: On: 11-Jul-2011 Intent Acacia Whaley CNP Radiology - Toe(s) - LeftBy: Jc On: 30-May-2011 Intent Tessie BROUSSARD Nuclear Medicine - HIDA w/CPKBy: On: 05-May-2011 Intent Fast DO, Tessie A Ultrasound - GallbladderBy: Fast DO, On: 01-May-2011 Intent Tessie A Comments: please do tomorrow Cartoid DopplerBy: Fast DO, Tessie A On: 01-May-2011 Intent EKG ([id number])By: Libby Herndon On: 01-May-2011 Intent Comments: ekg showed normal sinus rhythym, normal axis, no acute st/t wave changes poor r wave progression unchanged TDAP VACCINE >7 IM ([id number])By: On: 01-May-2011 Intent Libby Herndon Comments: work FLU VAC, SPLIT, >3 YEARS, INTRAMUSC On: 01-May-2011 Intent ([id number])By: Libby Herndon Comments: work DXA, BONE DENSITY, AXIAL SKELETON On: 09-Feb-2011 Intent ([id number])By: Monserrat Granado LPN MAMMOGRAM, SCREENING, BOTH BREASTS On: 09-Feb-2011 Intent ([id number])By: Monserrat Granado LPN Radiology - Ankle - LeftBy: Ciesa On: 14-Dec-2010 Intent RUSTY Acacia Wang Comments: call wet read to Acacia Whaley Eprescribed prescriptions ([id number])By: On: 15-Nov-2010 Intent Jc DO Tessie A CT - Abdomen & PelvisBy: Jc DO, On: 26-Oct-2009 Intent Tessie A Comments: tomorrow call wet read EKG ([id number])By: Libby Herndon On: 30-Aug-2009 Intent Comments: do at hospital Venous Doppler - RightBy: Jc DO, On: 03-Feb-2009 Intent Tessie A Comments: tomorrow- call wet read Radiology - Lumbar SpineBy: Fast DO, On: 03-Feb-2009 Intent Tessie A Radiology - Knee - Right - Weight On: 03-Feb-2009 Intent BearingBy: Jc DO Tessie A Doppler Ultrasound OtherBy: Vicky On: 18-Sep-2008 Intent Catrina BROUSSARD DO, Kathleen Comments: lower extrem Stress EchocardiogramBy: Jc DO, On: 07-Jun-2007 Intent Tessie A EKG ([id number])By: Jc BROUSSARD Tessie A On: 28-Apr-2007 Intent Comments: ordered to be done at the hospital CT - Brain/HeadBy: Tessie Greene DO On: 20-Mar-2007 Intent Comments: with and without contrast- please do stat and call wet read IMMUNIZ ADMNIN, 1 VAC, SNGL/COMBO On: 04-Apr-2006 Intent ([id number])By: Libby Herndon PNEUM VAC ADLT/IMUMNOSPR, SBC/INTRM On: 04-Apr-2006 Intent ([id number])By: Libby Herndon Comments: Lot #:Expiration date:Amount given:Route: IMSite given:LEFT DELTOIDGiven by: JESSICA Weinberg IMMUNIZ ADMNIN, 1 VAC, SNGL/COMBO On: 04-Apr-2006 Intent ([id number])By: Tessie Greene DO PNEUM VAC ADLT/IMUMNOSPR, SBC/INTRM On: 04-Apr-2006 Intent ([id number])By: Tessie Greene DO Planned Medications INJECTION, METHYLPREDNISOLONE [...] : Patient Instructions Indication: Essential hypertension Encounters Office Visit On: 18-Apr-2018 10:29 Encounter Reason: [...] The patient does have durable power of health care attorney and living will. The patient has [...] was sudden. End: 11-Dec-2014 12:45 Encounter Diagnosis: Poison casandra [facility] Phone Encounter On: 28-Oct-2014 [...] The patient does have durable power of health care attorney and living will. The patient has noticed nothing from the geriatic depre ssion scale. Other providers contributing to the patient's care are other: (hearing and eye drLatrell herrera and Dr. Zamora). Note for Annual Medicare Exam: NO labwork done for today and pt had her well woman exam done with BOTTLED BEVERAGE INSPECTOR.-weight down trying - her bp up [...] she hasnt needed too- more active in hindu and that has h elped- no gerd [...] Jessica and thinks helping- going every6 w eeks- saw Allison- got bone density- back better [...] effective than benicar- she said mood in [facility] is reasonable- doesnt want to change- - [...] to get back on track and joining [email or web address]- her mood is pretty good and brother in hospice care but less stress than before- no gerd - yuliaore lisbeth sahni , [ADDITIONAL REASON] Follow up, [...] going up neck- took pulse was fine-started th morning- not overtly stressed out- exertion no [...] g to weight watchers- still struggling with [employer]- retiring in may - had labs [...] with welbutrin more energy and seeing the automated access systems technician-- no issues withthe crestor- wever since cortison [...] got shot of cortisone since then o lynette now- this is differnet- pain back of [...] for chronic medical issues: her brother in community [facility] and got a pressure sore- having [...] df's recieved documents from Dr. Nichole at [facility]). Note for Follow up, Laboratory [...] The fatigue occurs towards the end of day. The symptoms have been associated with use [...] peumovax- needs florina bloodwork- gettting back on [employer], [ADDITIONAL REASON] Follow up for chronic [...] in the past ,difficulty sleeping ,drug abuse ,early childhood director awakening ,episodes of spontaneous crying ,e xcessive [...] [facility] End: 17-Jan-2006 16:04 [facility]/Supplement Ame lopez guarantor
--- OUTSIDE RECORDS SUMMARY | 2018-08-24 15:40 | XMS RPT_ITS | Continuity of Care Document ---
:1940 External Reference #:[id number] Author Organization [facility] Address [address] [place] [address] Phone Care Team Providers Name Role Phone Catrina Perry DO Unavailable Ricardo Rollins MD Unavailable Dr. Addison Kimball Unavailable Poly Bunn Unavailable Duke PLASCENCIA, Dr. Janes Dougherty Unavailable Winter, Ladi Unavailable Unavailable Sadia Goel Unavailable Unavailable Libby Herndon Unavailable Unavailable Fallon Carranza Unavailable Unavailable Senior Analyst Developer, System Unavailable Unavailable Carolin Garber LPN Unavailable [...] 1 qd (20 MG) Active CITRACAL MAXIMUM, [id number] (Oral Tablet) 1 tab bid (315-250 MG-UNIT) [...] for 0 days Refills: 0 Ordered:31-Dec-2017 Slarb MANAGER TALENT, AngelaActive Omeprazole 20 MG Oral Capsule Delayed [...] Quantity: 30 {Tablet} Refills: 0 Ordered:30-Jan-2012 Megan Phillips LPN L Start : 14-Dec-2010 End : [...] Name Dates Details Bactrim *ANTI-INFECTIVE AGENTS - [facility] Status: Active (Allergy) Comments: nausea Allergy to [...] WITH Contrast Result: Comments: See Note; NOTES: [facility] [address] [place] [address] Soft Tissue Neck WITH Contrast MR#: [id number] Acct: [id number] Name: HERMAN LEONARD Rep #: [id number] : 1940 F 77 From: Michael Alonso MD PCP: Catrina Perry DO Status: REG CLI Study: Soft Tissue Neck WITH Contrast Date of Exam: 04/10/18 Exam# [id number] Ordering Dr: Acacia Whaley STUDY: CT SOFT [...] FINDINGS: Normal bilateral parotid glands. Normal bilateral summer intern spaces. Normal bilateral parapharyngeal spaces. Normal bilateral [...] Alonso MD 04/10 at 15:37 EST Tel [phone], Service support , CC: Acacia Whaley NP; Catrina Perry DO Cop Examiner: Signed 10-Apr-2018 Soft Tissue Neck WITH Contrast Result: Comments: See Note; NOTES: [facility] [address] [place] [address] Soft Tissue Neck WITH Contrast MR#: [id number] Acct: [id number] Name: HERMAN LEONARD Rep #: [id number] : 1940 F 77 From: Michael Alonso MD PCP: Catrina Perry DO Status: REG CLI Study: Soft Tissue Neck WITH Contrast Date of Exam: 04/10/18 Exam# [id number] Ordering Dr: Acacia Whaley P-C ADDENDUM by [...] Michael Alonso MD at 8:47 EST Tel [phone], Service support , 04/11/18 0847 Date cc : Acacia Whaley NP; Catrina Perry DO * Signed ADDENDUM by Michael Alonso MD on 04/11/[address]/Soft Tissue Neck WITH Contrast 04/11/18 0854 Date cc: Acacia Arenasmikayla FURNACE SETTER; Catrina Perry DO * Signed STUDY: CT [...] FINDINGS: Normal bilateral parotid glands. Normal bilateral summer intern spaces. Normal bilateral parapharyngeal spaces. Normal bilateral [...] Michael Alonso MD at 15:37 EST Tel [phone], Service support , CC: Acacia Whaley NP; Catrina Perry DO Cop Examiner: Signed 09-Apr-2018 Thyroid Result: Comments: See Note; NOTES: [facility] [address] [place] [address] Thyroid MR#: [id number] Acct: [id number] Name: HERMAN LEONARD Rep #: [id number] : [birth year] F 77 From: Michael Alonso MD PCP: Catrina Perry DO Status: REG CLI Study: Thyroid Date of Exam: 04/09/18 Exam# [id number] Ordering Dr: Acacia Whaley FURNACE SETTER-C STUDY: THYROID ULTRASOUND REASON FOR EX AM: [...] Alonso MD at 15:[address] Tel [phone], Service support , CC: Acacia Whaley FURNACE SETTER; Catrina Perry DO Cop Examiner: Signed 19-Dec-2017 Abdomen Single View Result: Comments: See Note; NOTES: [facility] [address] [place] [address] Abdomen Single View MR#: [id number] Acct: [id number] Name: HERMAN LEONARD Rep #: [id number] D OB: 1940 F 76 From: Chris Rachel MD PCP: Catrina Perry DO Status: REG CLI Study: Abdomen Single View Date of Exam: 12/19/17 Exam# [id number] Ordering Dr: Acacia Whaley STUDY: X-RAY - [...] , Service support , CC: Acacia Whaley FURNACE SETTER; Catrina Perry DO Cop Examiner: Signed 20-May-2015 Dexa Bone Density Study (HP) Result: Comments: See Note; NOTES: [facility] [address] [place] [address] Verdana 4d Dexa Bone Density Study (HP) MR#: [id number] Acct: [id number] Name : HERMAN LEONARD Rep #: [id number] : 1940 F 74 From: Michael Alonso MD PCP: Tessie Greene DO Status: [facility] CL Study: Dexa Bone Density Study (HP) Date of Exam: 05/20/15 Exam# [id number] Radhai ng Dr: Tessie Greene DO STUDY: [...] Michael Alonso MD at 10:30 EST Tel [phone], Service support [phone], CC: Jailyn Yang MD; Tessie Greene DO Cop Examiner: Signed 06-Apr-2015 Bilat Scrn Digital AND CAD Result: Comments: See Note; NOTES: [facility] [address] [place] [address] Verdana 4d Bilat Scrn Digital AND CAD MR#: [id number] Acct: [id number] Name: HERMAN LEONARD Rep #: [id number] : 1940 F 74 From: Michael Alonso MD PCP: Tessie Greene DO Status: REG CLI Study: Db Viverosn Digital AND CAD Date of Exam: 04/06/15 Exam# [id number] Ordering D r: Tessie Greene DO MAMMOGRAPHY [...] Michael Alonso MD at 7:54 EST Tel [phone], Service support [phone], CC: Tessie Greene DO Cop Examiner: Signed 05-Feb-2015 EKG (14447) Comments: ekg showed normal sinus rhythym, normal axis, no acute st/t wave changes Result: [MEASUREMENTS ANALYSIS] Date of Test: 02/05/2015 09:47:50; Heart Rate: 58; DE Interval: 156; QRS: 93; QT Interval: 420; Corrected QT Interval (QTc): 417; P Wave [place]: 31; QRS Wave [place]: 31; T Wave [place]: 44; Blood Pressure: 122/84 [ECG DIAGNOSTIC STATEMENTS] Date of Test: 02/05/2015 09:47:50; Summary: Sinus Bradycardia WITHIN NORMAL LIMITS 27-Mar-2014 Bilat Scrn Digital & CAD Result: Comments: See Note; NOTES: [facility] [address] [place] [address] Breast Imaging Report MR#: [id number] Acct: [id number] Name: HERMAN LEONARD Rep #: [id number] : 1940 F 73 From: Michael Alonso MD PCP: Tessie Greene DO Status: REG CLI Exam# [id number] Ordering Dr: Tessie Greene DO MAMMOGRAPHY - [...] Michael Alonso MD at 9:36 EDT Tel [phone], Service support [phone], CC: Tessie Greene DO Cop Examiner: Signed 26-Mar-2013 Bilat Scrn Digital & CAD Result: Comments: See Note; NOTES: [facility] [address] [place] [address] Breast Imaging Report MR#: [id number] Acct: [id number] Name: HERMAN LEONARD Rep #: [id number] : 1940 F 72 From: Michael Alonso MD PCP: Tessie Greene DO Status: REG CLI Exam# [id number] Ordering Dr: Tessie Greene DO MAMMOGRAPHY - [...] March 26, 2013 at 2:33:33 PM EDT [phone] Electronically Signed GP/GP If you are the referring physician and would like to consult with the radiologist who pr ovided this interpretation, please contact Michael Alonso M.D. at [phone]. If this radiologist is unavailable, you will be directed to another radiologist to assist. If you are a patient w ith a question regarding this report, please contact your referring physician directly. Professional Interpretation Provided By: Watch-Sites, Phone , These documents contain legally protected [...] of these documents. CC: Tessie Greene DO Cop Examiner: Signed Immunization Name Dates Details Pneumococcal (2 years and up) on: 04-Apr-2006 Pneumococcal (2 years and up) on: 04-Apr-2006 Comments: Lot #:Expiration date:Amount given:Route: IMSite given:LEFT DELTOIDGiven by: JESSICA Weinberg Family History Unknown Family Member Name Dates Details Father Comments: [place] Status: Active Mother Comments: CHF Status: Active Paternal Grandmother Comments: ABD CA Status: Active Social History Name Dates Details Alcohol Use Comments: Occasional alcohol use Status: Active Non Smoker/No Tobacco Use Status: Active Tobacco use: Never smoker. Status: Active Smoking Status Name Dates Details Never smoker Vital Signs Date Test Result Details 86-Nng-365621:44 Temperature 97.3 f Comments: Method: Temporal Pulse [...] kg/m2 Body Surface Area Calculated 1.58 m2 41-Tdi-261275:20 Comments: 140/82 recheck bp Pulse 65 /min [...] 0.00 cm Results Date Description Value Details 53-Kvg-94162:00 ASP DONE IN LAB See Note (Normal) Comments: [facility] [address] [place], [address] Comments: Patient: HERMAN LEONARD : 1940 (77/) Acct Num: [id number] Phys: Ria PLASCENCIA,Hartly Unit Num: [id number] Loc: LAB Specimen: [id number] Received: 04/17/18 - [...] Submitted for cytology study. TC: 5 CPT: 03778, 154261, 97751 , [address]2835 CYTOLOGY STUDY Slides are reviewed. DIAGNOSIS CYTOLOGY Fine needle aspiration, right neck mass (smear, cell block): Negative for malignant cells. See comment. AM:sp 04/18/18 HEADER OPERATION: FNA, right neck mass PRE-OP DIAGNOSIS: Right neck mass TISSUE SUBMITTED: Right neck mass Signed Janes Arellano 11/15/18 <signature on file> 3-Bul-755080:47 CREATININE FINGERSTICK Comments: [facility] [address] [place] [address] EGFR WB > 60.0000 mL/min (Normal) CREATININE WB 0.8 mg/dL (Normal) Range: 0.55-1.02 :40 Bilirubin, Direct Comments: Order Date: 03/13/17Order Info: 0788- [id number] - *Hepatic Function PanelOrder Info: 79046-4 - *Lipid Profile CC PCPComments: 12 hours fasting, may have water.DR PÉREZ ORDERED LIPID/LIVERDR VICKY ORDERED TS H/CBCD/LIPID/CMP/UA/[facility] [address] [place], [address] D BILI 0.11 mg/dL (Normal) Range: 0.00-0.30 :40 CBC W/Diff, Automated Comments: DR PÉREZ ORDERED LIPID/LIVERDR PERRY ORDERED TSH/CBCD/LIPID/CMP/UA/[facility] [address] [place], [address] SMEAR COMMENT SCANNED (Normal) Absolute [...] 4.2-5.4 WBC 5.8 K/mm3 (Normal) Range: 4.4-11.0 47-Leo-14696:40 Comprehensive Metabolic Comments: Order Date: 03/13/17Order Info: [id number] - *Hepatic Function PanelOrder Info: 55725-3 - *Lipid Profile CC PCPComments: 12 hours fasting, may have water.DR PÉREZ ORDERED LIPID/LIVERDR VICKY ORDERED TS Profil H/CBCD/LIPID/CMP/UA/[facility] [address] [place], [address] GAP 5 (Normal) Range: 5-15 CO2 32.0 [...] Comments: Please note revised GLUCOSE reference range wchdvyjcn64/02/2018. 05-Uvn-89536:40 Lipid Profile Comments: Order Date: 03/13/17Order Info: 0788-1 - *Hepatic Function PanelOrder Info: 47589-7 - *Lipid Profile CC PCPComments: 12 hours fasting, may have water.DR PÉREZ ORDERED LIPID/LIVERDR PERRY ORDERED TS H/CBCD/LIPID/CMP/UA/[facility] [address] [place], [address] VLDL 11 mg/dL (Normal) Range: [...] Comments: DR PÉREZ ORDERED LIPID/LIVERDR VICKY ORDERED TSH/CBCD/LIPID/CMP/UA/[facility] [address] [place], [address] Ratio,Random UR MALB:CREAT 9.7 {mg/g_CRE} (Normal) MICROALBUMIN,UR 5.3 mg/L (Normal) UR CREAT 55.10 mg/dL (Normal) :40 Thyroid Stim Hormone Comments: Order Date: 03/13/17Order Info: 0788-1 - *Hepatic Function PanelOrder Info: 48651-0 - *Lipid Profile CC PCPComments: 12 hours fasting, may have water.DR PÉREZ ORDERED LIPID/LIVERDR VICKY ORDERED TS (TSH) H/CBCD/LIPID/CMP/UA/[facility] [address] [place], [address] TSH 1.84 {uIU/mL} (Normal) Range: 0.358-3.74 :40 Urinalysis, Complete Comments: DR PÉREZ ORDERED LIPID/JUNIOR PERRY ORDERED TSH/CBCD/LIPID/CMP/UA/MIACREHow was Urine Obtained? CLEAN [facility] [address] [place], [address] MUCUS, URINE 0 SEEN {/hpf} [...] (Normal) CLARITY Clear (Normal) COLOR Yellow (Normal) 72-Cfq-798834:44 URINE ALEX CULTURE-IDENTIFICATN Comments: PATIENT NOT FASTINGPERFORMED BY: [facility] Aebtbn9720 [facility] [id number] Information: [id number] (74934) Result 1 CNSNSS (Abnormal) Comments: Coagulase negative [...] S Urine Final report Culture,Compreh (Abnormal) ensive 47-Ieo-494827:10 Urinalysis, Office (99605) UA - LEUKOCYTE ESTERASE Small (Normal) UA - NITRITE Negative (Normal) URINE UROBILINGN JASMINE TIMED Normal mg/dL (Normal) UA - PROTEIN Negative mg/dL (Normal) UA - PH 7 (Normal) UA - BLOOD non-hemolyzed trace (Normal) UA - SPECIFIC GRAVITY 1.015 (Normal) UA - KETONES Negative mg/dL (Normal) UA - BILIRUBIN Negative (Normal) UA - GLUCOSE Negative (Normal) 99-Hra-402896:16 Basic Metabolic Profile (BMP) Comments: [facility] [address] [facility] [address]. [place], [place], [address] ; will review at appt GAP 6 [...] 7-18 GLU 87 mg/dL (Normal) Range: 70-110 96-Xss-300387:25 URINE ALEX CULTURE (JASMINE Comments: PATIENT NOT FASTINGPERFORMED BY: [facility] [address]40[address] [facility] [id number] Information: SRC:[facility] [id number] COL COUNT) (31498) Result 1 NG36 (Normal) Comments: No growth in 36 - 48 hours. Urine Culture,Comprehensive Final report (Normal) 77-Wko-375050:44 Urinalysis, Office (58911) UA - LEUKOCYTE ESTERASE Negative (Normal) UA - NITRITE Negative (Normal) URINE UROBILINGN JASMINE TIMED Normal mg/dL (Normal) UA - PROTEIN Negative mg/dL (Normal) UA - PH 6.5 (Normal) UA - BLOOD Hemolyzed Trace (Normal) UA - SPECIFIC GRAVITY 1.010 (Normal) UA - KETONES Negative mg/dL (Normal) UA - BILIRUBIN Negative (Normal) UA - GLUCOSE Negative (Normal) 79-Vtj-302378:10 URINE ALEX CULTURE (JASMINE Comments: PATIENT NOT FASTINGPERFORMED BY: [facility] T[facility] FallsWuwdfd9606 [facility] [id number] Information: SRC:[facility] [id number] COL COUNT) (62706) Antimicrobial MIHEAD (Normal) Comments: S = Susceptible; [...] mL (Abnormal) Urine Final report Culture,Comprehensive (Abnormal) 69-Epl-585869:24 Urinalysis, Office (52063) UA - LEUKOCYTE ESTERASE Small (Normal) UA [...] 02-Feb-20157:28 Comprehensive Metabolic Profil Comments: Test performed at:[facility] [address] [facility]. [place], [place] [address] GAP 6 (Normal) Range: 5-15 CO2 29.0 [...] Comments: Please note revised CREATININE reference range vxjdekaab14/22/2015. BUN 21 mg/dL (Abnormal) Range: 7-18 GLU 85 mg/dL (Normal) Range: 70-110 :28 Lipid Profile Comments: Test performed at:[facility] [address] [facility] [place] [address] ; non-emergent till apt VLDL [...] 200-240 mg/dL Borderline >240 mg/dL High Risk 43-Mmk-71043:35 CBC W/Diff, Automated Comments: Test performed at:[facility] [address] [place] [address] ; non- emergent till apt [...] Range: 4.4-11.0 :35 CRP Comments: Test performed at:[facility] [address]jkfahp[address] [facility] [place] [address] C-REACTIVE PROT 38.60 mg/L (Abnormal) Range: 0.0-3.0 Comments: C-Reactive Protein (CRP) provides useful information for thediagnosis, therapy and monitoring of inflammatory processesand associated diseases. For the evaluation of Relative Riskfor Cardiovascular Dise ase, a High Sensitivity CRP (HSCRP)should be ordered. :35 Culture, Urine Comments: Test performed at:[facility] [address] [facility] [place] [address] CUUR See Note (Normal) Comments: Urine CultureCulture exhibits no growth. :35 Erythrocyte Sed Rate Comments: Test performed at:[facility] [address] [facility] [place] [address] SED RATE 24 mm/h (Normal) Range: 0-30 28-Wap-598918:11 URINE ALEX CULTURE-JASMINE COL Comments: PATIENT NOT FASTINGPERFORMED BY: [facility] Kfzwil5879 [facility] [id number] Information: SRC:UR [id number] COUNT (47316) Result 1 NG36 (Normal) Comments: No growth in 36 - 48 hours. Urine Culture,Comprehensive Final report (Normal) 41-Xnh-803466:11 Urinalysis, Office (53679) UA - LEUKOCYTE ESTERASE Small (Normal) UA - NITRITE Negative (Normal) URINE UROBILINGN JASMINE TIMED Normal mg/dL (Normal) UA - PROTEIN Trace mg/dL (Normal) UA - PH 6 (Abnormal) UA - BLOOD non-hemolyzed trace (Normal) UA - SPECIFIC GRAVITY 1.020 (Normal) UA - KETONES Negative mg/dL (Normal) UA - BILIRUBIN Negative (Normal) UA - GLUCOSE Negative (Normal) 49-Ejc-895863:57 V-Zoster IgG (Immunity) Comments: Test performed at:[facility] [address] [place], [place] [address] VZOST IgG [address] 1894 {index} (Normal) Comments: Negative <135 Equivocal 135 - 165 Positive >165A positive result generally indicates exposure to thepathogen or adm inistration of specific immunoglobulins,but it is not indication of active infection or stageof disease.Performed at: [facility] [id number] Director: Bernardino grady PhD, Phone: [phone]; ADDENDA: has been seen in office since drawn 28-Tpb-81622:48 CBC W/Diff, Automated Comments: Test performed at:[facility] [address] [place] [address] Absolute Lymph 1.40 {X10_3/ul} (Normal) [...] :48 Comprehensive Metabolic Profil Comments: Test performed at:[facility] [address] [place], [place] [address] GAP 4 (Abnormal) Range: 5-15 CO2 28.0 [...] 70-110 :48 Lipid Profile Comments: Test performed at:[facility] [address] [place], [place] [address] VLDL 14 mg/dL (Normal) Range: 5-40 LDL [...] Thyroid Stim Hormone (TSH) Comments: Test performed at:[facility] [address] [place] [address] TSH 1.57 {uIU/mL} (Normal) Range: [...] CHOL 151 mg/dL (Normal) Comments: <200 mg/dL Jcsmgpqwn530-988 mg/dL Borderline>240 mg/dL High Risk :23 VZG 2963 {index} (Normal) Comments: Negative <135Equivocal 135 - 165Positive >165A positive result generally indicates exposure to thepathogen or administration of specific immunoglobulins,but it is not indicati on of active infection or stageof disease.Performed at: - [facility] [id number] Director: Bernardino Camargo PhD, Phone: [phone]; ADDENDA: normal and pt has apt tomorrow [...] CHOL 151 mg/dL (Normal) Comments: <200 mg/dL Nzqhmppup184-524 mg/dL Borderline>240 mg/dL High Risk :17 VITD [...] CHOL 127 mg/dL (Normal) Comments: <200 mg/dL Lzbwuciwl420-380 mg/dL Borderline>240 mg/dL High Risk :49 CBCMD [...] CHOL 129 mg/dL (Normal) Comments: <200 mg/dL Zvrpmfhhv631-998 mg/dL Borderline>240 mg/dL High Risk HDL 48 [...] 250 nm ol/L)Toxicity >100 ng/mL (250 nmol/L)Effective 201225-Jun-201250-Lsq-418878:32 URINE ALEX CULTURE (JASMINE Comments: PATIENT NOT FASTINGPERFORMED BY: [facility] Aleacb9921 [facility] [id number] Information: SRC:UR [id number] COL COUNT) (33046) Result 1 CNSNSS (Normal) Comments: Coagulase negative Staphylococcus species, not Staphylococcussaprophyticus.100 Colonies/mL .Based on resistance to penicillin and susceptibility to o xacillinthis isolate would be susceptible to:* Penicillinase-stable penicillins; such as: Cloxacillin Dicloxacillin Nafcillin* Beta-lactam/beta-lactamase inhibitor combinations; such as: [place] xicillin-clavulanic acid Ampicillin-sulbactam* Antistaphylococcal cephems; such as: Cefaclor Cefuroxime* Antistaphylococcal carbapenems; such as: Imipenem Meropenem S = Susceptibl e; I = Intermediate; R = Resistant P = Positive; N = Negative MICS are expressed in micrograms per mL Antibiotic RSLT#1 RSLT#2 RSLT#3 RSLT#4 Ciprofloxacin SGentamicin SLevofloxacin SNitrofurantoin SOxacillin SPenicillin RRifampin STetracycline STrimethoprim/Sulfa SVancomycin S Urine Final report Culture,Comprehensi (Normal) ve 11-Rij-156276:35 Urinalysis, Office (76802) UA - BILIRUBIN Negative (Normal) UA - BLOOD Hemolyzed Large (Normal) UA - GLUCOSE Negative (Normal) UA - KETONES Small mg/dL (Normal) UA - LEUKOCYTE ESTERASE Large (Normal) UA - NITRITE Negative (Normal) UA - PH 7.0 (Normal) UA - PROTEIN 100 mg/dL (Normal) UA - SPECIFIC GRAVITY 1.020 (Normal) URINE UROBILINGN JASMINE TIMED Normal mg/dL (Normal) 5-Vvi-739686:19 Urinalysis, Office (58805) UA - BILIRUBIN Negative (Normal) UA - BLOOD Hemolyzed Trace (Normal) UA - GLUCOSE Negative (Normal) UA - KETONES Negative mg/dL (Normal) UA - LEUKOCYTE ESTERASE Negative (Normal) UA - NITRITE Negative (Normal) UA - PH 7.5 (Normal) UA - PROTEIN Negative mg/dL (Normal) UA - SPECIFIC GRAVITY 1.015 (Normal) URINE UROBILINGN JASMINE TIMED Normal mg/dL (Normal) 1-Fxm-301107:11 URINE ALEX CULTURE-IDENTIFICATN Comments: PATIENT NOT FASTINGPERFORMED BY: [facility] [address] [place] [id number] Information: [id number] (38249) Result 1 NG36 (Normal) Comments: No growth [...] mg/dL Borderline >240 mg/dL High Risk :33 [facility] UMUC 0 SEEN {/hpf} (Normal) [...] (Normal) UCLAR Clear (Normal) UCOL Yellow (Normal) 5-Nhg-226626:50 RIBS UNIL 2V NO CXR Radiology Report [...] Signed:Mikhail Palencia MDNovember 2011 at 5:31:33 PM [id number] Signed TP/TP If you are the referring physician and would like to consult with theradiologist who provided this inter pretation, please contact Mikhail Palencia MD at [phone]. If this radiologist is unavailable, you will bedirected to another radiologist to assist. If you are a patient with a question regarding this re port, pleasecontactyour referring physician directly. Professional Interpretation Provided By: [employer], Phone , These documents contain legally protected [...] 04/08/12 1738 Sign by: Mikhail Palencia MD 8-Yug-936148:01 BILAT SCRN DIGITAL & CAD Radiology Report [...] Alonso M.D.March 05, 2012 at 2:05:30 PM [id number] Signed GP/GP If you are the referring physician and would like to consult with theradiologist who provided this interpretation, please contact Stuart Wills at [phone]. If this radiologist is unavailable, youwill be directed to another radiologist to assist. If you are a patient with a question regarding this report, pleasecontactyour referring physician directly. Professional Interpretation Provided By: [employer], Phone , These documents contain legally protected [...] Alonso M.D.March 05, 2012 at 2:52:24 PM [id number] Signed GP/GP If you are the referring physici an and would like to consult with theradiologist who provided this interpretation, please contact Stuart Wills at [phone]. If this radiologist is unavailable, youwill be directed to anot her radiologist to assist. If you are a patient with a question regarding this report, pleasecontactyour referring physician directly. Professional Interpretation Provided By: [employer], Phone , These documents contain legally protected [...] on 1457 Sign by: Michael Alonso MD 78-Olb-67016:26 CBCEM Comments: This patient requested that [facility] [employer] send to you acopy of [...] PLATELETS (Normal) Comments: This [facility] to you acopy of their Yearly Employee Health Risk Assessment.A copy of this report is also given to the patient so theycan follow up with your office if they choose. 29-Qpz-69222:26 EMP Comments: This patient requested that [facility] send to you acopy of their [...] :26 UAEM Comments: This patient requested that [facility] [employer] send to you acopy of [...] D deficiency has been defined by the [place] ofMedicine and an Endocrine Society practice guideline as alevel of serum 25-OH vitamin D less than 20 ng/mL (1,2).The Endocrine Society went on to further define vitamin Dinsufficiency as a level between 21 and 29 ng/mL (2).1. IOM ([place] of Medicine). 2010. Dietary reference intakes for calcium and D. [place]: The National Academies Press.2. Paxton MF, Rojelio OSPINA, Cortney GARIBAY, et al. Evaluation, treatment, and prevention of vitamin D deficiency: an Endocrine Society clinical practice guideline. JCEM. 2010; 96(7): 1911-30.Performed at: [address] [id number] Director: Korin Harris MD, Phone: [phone] 07-Vtg-826564:34 HEPATOBILIARY IMAGING Radiology Report See Note (Normal) [...] radiologist regarding this report, please call our [id number] line @ Dictated on 05/31/11 0818 by Ehsan Vázquez DOTranscribed on 05/31/112030 by ITS IMPORTSign by Ehsan Vázquez DO on 05/31/112031 Sign by: Ehsan Vázquez DO 12-Hgh-402376:54 TOE(S),MIN 2 VIEWS Radiology Report See Note [...] regarding this rep ort, please call our 56F7cpjqjlu line @ Dictated on 05/30/11 1150 by [...] of the right kidney. The right kidn eutlseecgy53.6 x 4.7 x 4.0 cm. Normal renal [...] 05/02/11 1224 Sign by: MAIA SHELTON MD 62-Bbd-763429:02 CBCD,SMEAR DIFF Comments: appt 05/17/11 RED CELL [...] NEGATIVE 0.06 - 0.59 AT RISK OF WA > OR = 0.60 SUGGEST WA :11 ANKLE,MIN 3 VIEWS Radiology Report See [...] 12/14/10 1005 Sign by: GISSELLE GONZALES MD 89-Mdf-45995:52 URINE ALEX CULTURE (JASMINE COL Comments: PATIENT NOT FASTINGPERFORMED BY: [facility] [id number] COUNT) ([id number]) Result 1 NG36 (Normal) Comments: No growth in 36 - 48 hours. Urine Culture,Comprehensive Final report (Normal) 55-Wgy-49025:07 Urinalysis, Office (43973) UA - BILIRUBIN Negative (Normal) UA - [...] CHOL 150 mg/dL (Normal) Comments: <200 mg/dL Spjbcfjow302-208 mg/dL Borderline>240 mg/dL High Risk HDL 56 [...] CHOL 150 mg/dL (Normal) Comments: <200 mg/dL Cjttvlfzu340-258 mg/dL Borderline>240 mg/dL High Risk LDH 160 [...] (Normal) Comments: Result: NEGATIVE COLOR YELLOW (Normal) 84-Sas-196723:10 BILAT SCRN DIGITAL & CAD Radiology See Note Comments: Exam Number: [id number] MAMMOGRAPHY - BILATERAL SCREENING INDICATION:Routine annual screening [...] not delay biopsy of a clinicallysuspicious abnormality.ADDENDUM: [id number] HPBI/MDS MAMMOGRAPHY - BILATERAL SCREENING INDICATION:Routine annua [...] attach ing a ResultCode to this exam.ADDENDUM: [id number] HPBI/MDS Reported By: GISSELLE GONZALES M.D. 05-Skt-204123:09 DEXA BONE DENSITY STUDY (HP) Radiology Report See Note Comments: Exam Number: [id number] CLINICAL:The patient is a 69-year-old female who is postmenopausal with pasthistory of hormone replacement therapy. History of fracture of P9tyyggi history of osteoporosis EXAMINA (Normal) TION:DUAL ENERGY X-RAY ABSORPTIOMETRY / DEXA. TECHNIQUE:Bone Density Measurements (BMD) of lumbar spine and bilateral hipswere obtained using a Human Demand scanner. COMPARISON:March 24 999, October 29, 2002, [...] NIH Osteoporosis and Related Bone Diseases http://www.osteo.org2. Starter Cup Powder Mixer ational Society for Clinical Densitometryhttp://www.iscd.org3. National Osteoporosis Foundation http://www.nof.org Reported By: GISSELLE GONZALES M.D. 24-Dec-19 VIT D,25 46204 39.0 ng/mL Range: 32.0-100.0 1012:08 (Normal) Comments: Recent studies consider the lower limit of 32.0 ng/mL to isabel threshold for optimal health.Sheng BURNETT. J Nutr. 2004;135(2):317- 22.Performed at: [place] [id number]Lab Director: Korin Harris MD, Phone: [phone] 29-Oct-19 C DIF TOXIN/AG See Note Comments: [...] Crytosporidium parvum,Cyclospora, or Microsporidia.__ TESTING PERFORMED AT [facility]. ORIGINAL REPORT ONFILE IN LAB CONTAINS ADDITIONAL TEST SITE INFORMATION. OVA/ PARASITES EXAM NO OVA, CYSTS, OR PARASITES FOUND. :40 WBC,STOOL See Note (Normal) Comments: FECAL WBCs NONE SEEN 54-Nqr-047681:25 ABDOMEN/PELVIS WITH CONTRAST Radiology Report See Note (Normal) Comments: Exam Number: [id number] CLINICAL:This is a 68-year-old female patient with [...] SED RATE 48 mm/h (Abnormal) Range: 0-30 55-Ptd-475029:55 URINE ALEX CULTURE (JASMINE Comments: PATIENT NOT FASTINGPERFORMED BY: [facility] F[facility]vlhc[facility] [facility] [id number] Information: SRC:UR [id number] COL COUNT) (90245) Result 1 NG36 (Normal) Comments: No growth in 36 - 48 hours. Urine Culture,Comprehensive Final report (Normal) 88-Sdn-387406:20 Urinalysis, Office (43049) UA - LEUKOCYTE ESTERASE Small (Normal) UA - NITRITE Negative (Normal) URINE UROBILINGN JASMINE TIMED 2 mg/dL (Normal) UA - PROTEIN Negative mg/dL (Normal) UA - PH 7.0 (Normal) UA - BLOOD Hemolyzed Trace (Normal) UA - SPECIFIC GRAVITY 1.015 (Normal) UA - KETONES Negative mg/dL (Normal) UA - BILIRUBIN Negative (Normal) UA - GLUCOSE Negative (Normal) 32-Tcc-19016:11 BREAST UNILATERAL US (HP) Radiology Report See Note (Normal) Comments: Exam Number: [id number] CLINICAL:The patient is a 68-year-old female with [...] CHOL 147 mg/dL (Normal) Comments: <200 mg/dL Cxpotdcuv835-370 mg/dL Borderline>240 mg/dL High Risk :03 LIVER ALB 4.2 g/dL (Normal) Range: 3.4-5.0 ALK P 66 U/L (Normal) Range: 50-136 ALT 29 U/L (Normal) Range: 12-78 AST 20 U/L (Normal) Range: 15-37 D BILI 0.09 mg/dL (Normal) Range: 0.00-0.30 T BILI 0.30 mg/dL (Normal) Range: 0.00-1.00 T PROT 7.9 g/dL (Normal) Range: 6.4-8.2 :41 Urinalysis, Office (86694) UA - LEUKOCYTE ESTERASE Trace (Normal) UA [...] Report See Note (Normal) Comments: Exam Number: [id number] CLINICAL: 68-year-old female with knee pain lateral [...] a full thickness radial tear of the polymer materials consultant ior horn of the medial meniscus extending [...] last examination. Reported By: John Alcocer M.D. 4-Uvl-231318:24 KNEE,4 OR MORE VIEWS (MT) Radiology Report See Note (Normal) Comments: Exam Number: [id number] CLINICAL:Pain X-RAY EXAMINATION RIGHT KNEE TECHNIQUE:4 view(s) [...] change. Osteopenia. Reported By: ARIADNA PERAZA M.D. 2-Wun-867722:23 L/S SPINE,MIN 4 VIEWS (MT) Radiology Report See Note (Normal) Comments: Exam Number: [id number] CLINICAL:Low back pain, radiculopathy X-RAY EXAMINATION: LUMBAR [...] acute fracture. Reported By: ARIADNA PERAZA M.D. 8-Yas-270010:00 EMP URINALYSIS BILIRUBIN URINE SeeNote (Normal) Comments: [...] Range: 0.2 - 1.0 COLOR YELLOW (Normal) 3-Kcf-146811:00 ROUTINE UA BILIRUBIN URINE SeeNote (Normal) Comments: [...] K/mm3 (Normal) Range: 4.4-11.0 :17 EMP PROF HDL 48 mg/dL (Normal) [...] 6.4-8.2 URIC 4.3 mg/dL (Normal) Range: 2.6-6.0 :17 EMP PROF A/G 1.0 {RATIO} (Normal) [...] 2.6-6.0 VLDL 25 mg/dL (Normal) Range: 5-40 75-Dti-26278:31 DEXA BONE DENSITY STUDY () Radiology Report See Note (Normal) Comments: Exam Number: [id number] BONE DENSITOMETRY HISTORYOsteopenia. TECHNIQUE Bone densitometry of the lumbar spine and both hips is now beingperformed. The best criteria for evaluation of osteoporosis is theT-value, which represents the comparison of the patient's bone mass leigh expected peak bone mass. For most patients, the mean T-value of L7gcrinwf L4 is used to evaluate the lumbar [...] density is measured at 7.2% less than og5972.The T-valu e of the right femoral neck is -2 which is in the range ofosteopenia.The T- value of the total right hip is -1.7 which is in the range ofosteopenia. IMPRESSIONThere is osteopenia of the lumbar spine and both hips. Reported By: GISSELLE GONZALES M.D. 74-Fwr-57809:54 BREAST UNILATERAL US () Radiology Report See Note (Normal) Comments: Exam Number: [id number] TARGETED LEFT BREAST ULTRASOUND HISTORYAbnormal mammogram. High-resolution [...] Greene's office and the office was called [id number] hours December 22, 2008. Reported By: GISSELLE GONZALES M.D. 83-Zcp-846429:35 [facility] DI[facility] DIGITAL & CAD Radiology Report See Note (Normal) Comments: Exam Number: [id number] MAMMOGRAM, UNILATERAL LEFT DIAGNOSTIC DIGITAL AND CAD [...] 1992 (MQSA). The mammograms werealso examined w [facility] computer-aided detection software ([employer], [employer] Reported By: GISSELLE GONZALES M.D. :30 BILAT SCRN DIGITAL & CAD Radiology Report See Note (Normal) Comments: Exam Number: [id number] MAMMOGRAM, BILATERAL SCREENING DIGITAL AND CAD HISTORYRoutine [...] mammograms werealso examined with computer-aided detection software ([employer] Reported By: GISSELLE GONZALES M.D. 32-Yet-469631:37 BMP BUN 15 mg/dL (Normal) Range: 7-18 [...] g/dL (Normal) Range: 6.4-8.2 :11 AT3 F/I 32281 AT3 AG, IMMUNOL 131 % (Abnormal) Range: 75-130 AT3 FUNCT 76932 131 % (Normal) Range: 75-135 :11 PROT C 760458 PROT C,[id number] 169 % (Abnormal) Range: 74-151 Comments: Performed At: [address] [id number] PROTEIN C 21386 106 % (Normal) Range: 70-140 :11 PROT S 559975 PROTEIN S, FREE 107 % (Normal) Range: 56-124 PROTEIN S, FUNC 82 % (Normal) Range: 60-145 PROTEIN S,TOTAL 137 % (Normal) Range: 58-150 :38 A-CARDIO [id number] Comments: ORDER ALSO STATES ANTIPHOSPHOLIPIDS, WHICH IS [...] mm/h (Normal) Range: 0-30 :38 FAC II 277742 Comments: ORDER ALSO STATES ANTIPHOSPHOLIPIDS, WHICH IS A SYNONYM OFANTICARDIOLIPIN FACTOR II,DNA Comment (Normal) Comments: NEGATIVENo mutation identified.Comment:A point mutation ([id number]) in the Factor II (prothrombin)gene is the [...] antithrombinIII, protein C and protein S. :38 [facility] 181922 Comments: ORDER ALSO STATES ANTIPHOSPHOLIPIDS, WHICH IS [...] , elevatedhomocysteine levels, or a Factor II/prothrombin mutation(U05871D). Contact you r local [facility] for information [...] mg/dL VLDL 31 mg/dL (Normal) Range: 5-40 42-Uya-273192:35 CULTURE, URINE URINE CULTURE See Note (Normal) Comments: Predominant colony type being a gram positive trevor, probableLactobacillus species. COLONY COUNT 50,000-80,000 ORGANISM 1: MIXED GRAM POSITIVE ORGANISMS 38-Mcg-725549:35 ROUTINE UA BILIRUBIN URINE SeeNote (Normal) Comments: [...] 0.2 EU/dl (Normal) Range: 0.2 - 1.0 10-Pdb-20678:48 Urinalysis, Office (36469) UA - BILIRUBIN Negative (Normal) UA - BLOOD Negative (Normal) UA - GLUCOSE Negative (Normal) UA - KETONES Negative mg/dL (Normal) UA - LEUKOCYTE ESTERASE Trace (Normal) UA - NITRITE Negative (Normal) UA - PH 6.5 (Normal) UA - PROTEIN Negative mg/dL (Normal) UA - SPECIFIC GRAVITY 1.005 (Normal) URINE UROBILINGN JASMINE TIMED 2 mg/dL (Normal) 9-Pat-570115:04 BILAT SCRN DIGITAL & CAD Radiology Report See Note (Normal) Comments: Exam Number: [id number] MAMMOGRAM, BILATERAL SCREENING DIGITAL AND CAD HISTORYRoutine [...] werea lso examined with computer-aided detection software ([employer].). Reported By: GISSELLE GONZALES M.D. 0-Osu-986042:41 DEXA BONE DENSITY STUDY (HP) Radiology Report See Note (Normal) Comments: Exam Number: [id number] BONE DENSITOMETRY HISTORYOsteopenia. TECHNIQUE Bone densitometry of [...] density is measured at 0.2% less than mv5685 and 0.1% more than in 2005. IMPRESSIONThere is osteopenia of the lumbar spine and left hip. Reported By: GISSELLE GONZALES M.D. 45-Qfs-64495:19 CBC, EMPLOYEE HCT 36.9 % (Abnormal) Range: [...] {mg/24_hr} (Normal) Range: 1.8-6.7 Comments: Performed At: [address] [id number] VMA,UR 3.4 mg/L (Normal) :16 ALDOST,U24 4291 Comments: 24 H URINE TV = 2580 ML ALDOSTERONE,U24 3 {ug/24_hr} (Normal) Range: 2-21 Comments: 1 mo. 1 - 11 1- 12 mos. 1 - 22 1- 16 yrs. 2 - 16 Adult Ranges Normal diet 2 - 21 Low salt 17 - 44 High salt 0 - 14Performed At: [address] [id number] ALDOSTERONE,UR 1 ug/L (Normal) 76-Rlc-587021:17 BRAIN/HEAD W/WO CONTRAST Radiology Report See Note (Normal) Comments: Exam Number: [id number] CT SCAN OF BRAIN HISTORYHeadache. Scans were [...] ethmoid sinusitis. Reported By: GISSELLE GONZALES M.D. 17-Grm-42766:51 CBC With Differential/Platelet Comments: PERFORMED BY: [facility] FallsOopazp[facility] [id number] Baso (Absolute) 0.1 {x10E3/uL} (Normal) Range: 0.0-0.2 [...] Comp. Metabolic Panel (14) Comments: PERFORMED BY: [facility] FallsPnbsss[address] [place] [address] [id number] A/G Ratio 1.5 (Normal) Range: 1.1-2.5 Albumin, [...] Sedimentation 4 mm/h (Normal) Comments: PERFORMED BY: [facility] FallsTfayan04[facility] [id number] :51 Rate-Westergren Range: 0-30 :29 CULTURE, URINE URINE CULTURE See Note {CFU/mL} (Normal) Comments: COLONY COUNT >100,000 ORGANISM 1: ENTEROCOCCUS FAECALIS ENTEROCOCCUS FAECALIS: REACTION CIPROFLOXACIN GP $$$ <=0.5 S LEVOFLOXAC IN $$ <=1 S NITROFURANTOIN $ <=32 S PENICILLIN G (ENTEROCOCCUS) $$ 2 S TETRACYCLINE $$ <=1 S VANCOMYCIN $$ <=0.5 S 1-Wtu-994523:29 ROUTINE UA BILIRUBIN URINE SeeNote (Normal) Comments: [...] tissue mass Soft tissue mass : Reviewed Journeyman Pressman Letter Indication: Soft tissue mass Gastroesophageal reflux [...] EASY BRUISABILITY OF SKIN Planned Observations TSH (74918)Indication: Hypercholesterolemia On: Request URINALYSIS, W/ MICRO (57504)Indication: Essential hypertension On: Request MICROALBUMIN: CREATININE RATIO (72389) AND (37199)Indication: Essential hypertension On: : Request METABOLIC PANEL, COMPREHENSIVE (77301)Indication: Essential hypertension On: Request LIPOPROTEIN, BLD, BY NMR (35605)Indication: Hypercholesterolemia On: 70-Rnq-998553:41 Request CBC W/AUTO DIFF WBC (83135)Indication: Essential hypertension On: 09-Jsu-824987:41 Request TSH (20276)Indication: Hypercholesterolemia On: :51 Request URINALYSIS, W/ MICRO (17744)Indication: Essential hypertension On: :51 Request MICROALBUMIN: CREATININE RATIO (35605) AND (32014)Indication: Essential hypertension On: :51 Request METABOLIC PANEL, COMPREHENSIVE (08068)Indication: Essential hypertension On: :51 Request LIPID PANEL (13300)Indication: Essential hypertension On: :51 Request CBC W/AUTO DIFF WBC (32871)Indication: Essential hypertension On: :51 Request Metabolic Panel, Basic (52927)Indication: Essential hypertension On: 80-Pvr-796816:32 Request Comments: 2 weeks Vitamin D Hydroxy (09691)Indication: Osteopenia On: :23 Request URINALYSIS, W/ MICRO (29104)Indication: Essential hypertension On: :23 Request CBC W/AUTO DIFF WBC (64896)Indication: Essential hypertension On: :23 Request METABOLIC PANEL, COMPREHENSIVE (26478)Indication: Essential hypertension On: :23 Request LIPID PANEL (82272)Indication: Hypercholesterolemia On: :22 Request SED RATE ERYTHROCYTE (64610)Indication: Abdominal pain, acute, generalized On: :47 Request C-REACTIVE PROTEIN (65422)Indication: Abdominal pain, acute, generalized On: :47 Request CBC with auto diff (17700)Indication: Abdominal pain, acute, generalized On: :46 Request URINALYSIS, W/ MICRO (12937)Indication: Essential hypertension On: :27 Request LIPID PANEL (96890)Indication: Hypercholesterolemia On: :27 Request METABOLIC PANEL, COMPREHENSIVE (69289)Indication: Essential hypertension On: :26 Request VARICELLA-ZOSTER ANTBODY (73798)Indication: Hypercholesterolemia On: 75-Skd-776627:58 Request TSH (87219)Indication: Anxiety associated with depression On: :12 Request LIPID PANEL (58760)Indication: Hypercholesterolemia On: :12 Request CBC W/AUTO DIFF WBC (14012)Indication: Essential hypertension On: :12 Request METABOLIC PANEL, COMPREHENSIVE (33842)Indication: Essential hypertension On: :12 Request VARICELLA-ZOSTER ANTBODY (38347)Indication: screen On: :59 Request CBC WITH MANUAL DIFF (06494)Indication: Essential hypertension On: 50-Zsb-895331:59 Request LIPID PANEL (29029)Indication: Hypercholesterolemia On: :58 Request METABOLIC PANEL, COMPREHENSIVE (80365)Indication: Essential hypertension On: 75-Kvn-920020:58 Request Vitamin D Hydroxy (56831)Indication: Osteopenia On: :33 Request METABOLIC PANEL, COMPREHENSIVE (45187)Indication: Essential hypertension On: :33 Request LIPID PANEL (91223)Indication: Hypercholesterolemia On: :33 Request METABOLIC PANEL, COMPREHENSIVE (18759)Indication: Essential hypertension On: :57 Request LIPID PANEL (72039)Indication: Hypercholesterolemia On: :56 Request Vitamin D Hydroxy (66037)Indication: Anxiety associated with depression On: 58-Nog-944701:51 Request CBC WITH MANUAL DIFF (67529)Indication: Essential hypertension On: 94-Qgb-086249:51 Request METABOLIC PANEL, COMPREHENSIVE (24549)Indication: Essential hypertension On: 24-Dow-492816:51 Request TSH (57160)Indication: Anxiety associated with depression On: 55-Nie-774906:51 Request LIPID PANEL (70311)Indication: Hypercholesterolemia On: 41-Mza-807474:50 Request CBC WITH MANUAL DIFF (49487)Indication: Essential hypertension On: :30 Request METABOLIC PANEL, COMPREHENSIVE (83944)Indication: Essential hypertension On: :25 Request LIPID PANEL (91130)Indication: Hypercholesterolemia On: :25 Request URINALYSIS, W/ MICRO (58369)Indication: Essential hypertension On: 55-Jwl-419588:08 Request CBC WITH MANUAL DIFF (11274)Indication: Essential hypertension On: 89-Ahb-091059:08 Request METABOLIC PANEL, COMPREHENSIVE (54772)Indication: Essential hypertension On: 33-Afy-103413:06 Request LIPID PANEL (64532)Indication: Hypercholesterolemia On: 51-Reh-532298:06 Request LIPID PANEL (24621)Indication: Hypercholesterolemia On: :28 Request CBC WITH MANUAL DIFF (18219)Indication: Essential hypertension On: :28 Request METABOLIC PANEL, COMPREHENSIVE (44536)Indication: Essential hypertension On: :28 Request METABOLIC PANEL, COMPREHENSIVE (87333)Indication: Essential hypertension On: :48 Request Vitamin D Hydroxy (96737)Indication: Depression On: :48 Request LIPID PANEL (17294)Indication: Hypercholesterolemia On: 63-Qmi-577548:47 Request CBC WITH MANUAL DIFF (51861)Indication: Other chest pain On: 79-Zwv-401142:19 Request METABOLIC PANEL, COMPREHENSIVE (51910)Indication: Other chest pain On: 82-Urv-114462:18 Request ASSAY, TROPONIN, QUANTITATIVE (aka Troponin I) (56188)Indication: Other chest pain On: 38-Tca-785303:18 Request Comments: stat CALCIFEDIOL (11938)Indication: Eczema (Renamed from Dermatitis, eczematoid) On: 59-Ikb-265977:34 Request OVA & PARASITE DIR SMEAR (14213)Indication: Diarrhea (Renamed from D (diarrhea)) On: 37-Sjy-618286:11 Request LEUKOCYTE COUNT, FECAL (03642)Indication: Diarrhea (Renamed from D (diarrhea)) On: 30-Vin-761637:10 Request C.Difficile, Stool (56870)Indication: Diarrhea (Renamed from D (diarrhea)) On: 84-Kae-303088:10 Request ALEX CULTURE-STOOL (95827)Indication: Diarrhea (Renamed from D (diarrhea)) On: 20-Rsn-119022:10 Request SED RATE ERYTHROCYTE (03395)Indication: Abdominal pain, acute, left lower quadrant On: 27-Frz-520431:10 Request C-REACTIVE PROTEIN (08191)Indication: Abdominal pain, acute, left lower quadrant On: 59-Ygl-170711:10 Request URINALYSIS, W/ MICRO (01019)Indication: Abdominal pain, acute, left lower quadrant On: 90-Jfv-414600:10 Request METABOLIC PANEL, COMPREHENSIVE (11636)Indication: Abdominal pain, acute, left lower quadrant On: 80-Cec-667376:10 Request CBC WITH MANUAL DIFF (46459)Indication: Abdominal pain, acute, left lower quadrant On: 43-Gyt-165176:10 Request METABOLIC PANEL, COMPREHENSIVE (20864)Indication: Essential hypertension On: 48-Wdm-250076:47 Request HEPATIC FUNCTION PANEL (34306)Indication: Hypercholesterolemia On: :47 Request LIPID PANEL (64637)Indication: Hypercholesterolemia On: :47 Request Vitamin D Hydroxy (84735)Indication: Osteopenia On: :46 Request LIPID PANEL (96261)Indication: Hypercholesterolemia On: :38 Request HEPATIC FUNCTION PANEL (27890)Indication: Hypercholesterolemia On: :38 Request Metabolic Panel, Basic (81254)Indication: DISORDERS, ORGANIC, SLEEP RELATED LEG CRAMPS On: 60-Cwg-180468:17 Request URINALYSIS W/O MICRO (25433)Indication: Essential hypertension On: :48 Request TSH (60630)Indication: Essential hypertension On: :48 Request METABOLIC PANEL, COMPREHENSIVE (30931)Indication: Essential hypertension On: 9-Hur-366540:48 Request CBC WITH MANUAL DIFF (58975)Indication: Essential hypertension On: :48 Request LIPID PANEL (89541)Indication: Hypercholesterolemia On: :48 Request CBC WITH MANUAL DIFF (97432)Indication: Anemia, unspecified On: 54-Edu-87836:51 Request LIPID PANEL (60836)Indication: Hypercholesterolemia On: :31 Request HEPATIC FUNCTION PANEL (69524)Indication: Hypercholesterolemia On: :41 Request LIPID PANEL (31055)Indication: Hypercholesterolemia On: :41 Request SED RATE ERYTHROCYTE (24373)Indication: Headache (Renamed from Cephalalgia) On: 89-Vff-23968:40 Request METABOLIC PANEL, COMPREHENSIVE (33009)Indication: Headache (Renamed from Cephalalgia) On: :39 Request CBC WITH MANUAL DIFF (08363)Indication: Headache (Renamed from Cephalalgia) On: :39 Request CBC WITH MANUAL DIFF (59634)Indication: EASY BRUISABILITY OF SKIN On: :59 Request PTT (ACTIVATED PARTIAL THROMBOPLASTIN TIME) (93602)Indication: EASY BRUISABILITY OF SKIN On: :59 Request PT (PROTHROMBIN TIME) (56029)Indication: EASY BRUISABILITY OF SKIN On: :59 Request HEPATIC FUNCTION PANEL (11373)Indication: Hypercholesterolemia On: :54 Request LIPID PANEL (86114)Indication: Hypercholesterolemia On: :54 Request Planned Encounters Medical; 2 Week FU - On: 03-May-2018 11:45 [facility] Catrina Perry DO, DO, [facility]; 4 Month FU - On: 16-Aug-2018 10:00 [facility] Catrina Perry DO, DO, Kathleen Planned Procedures CT OF NECK WITHOUT THEN WITH On: 09-Apr-2018 Intent INTRAVENOUS CONTRAST (42330)By: Comments: include thyroid Acacia Whaley CNP Ultrasound - ThyroidBy: Jovana OJEDA, On: 09-Apr-2018 Intent Acacia Wang Comments: attetion soft tissue rt side of neck Flu Vaccine (Quadrivalent) 35118Ov: On: 13-Mar-2018 Intent Ladi Max Comments: Lot #[id number]-L dltd, IMDose prefilled syringegiven by:SABINA Mclain reviewed and ABN signed FLAT PLATE (58195)By: Jovana OJEDA, On: 19-Dec-2017 Intent Acacia Wang ELECTROCARDIOGRAM, COMPLETE (ECG) On: 12-Dec-2017 Intent (45200)By: Catrina Perry DO Comments: nsr no acute chg Catrina Perry DO Bone Density StudyBy: Tessie Greene DO On: 10-May-2015 Intent A Comments: screening ADMINISTRATION OF INFLUENZA VIRUS On: 05-Feb-2015 Intent VACCINE (G0008)By: Tessie Greene DO A Flu Vaccine (Quadrivalent) 09378Fl: On: 05-Feb-2015 Intent Tessie Greene DO Comments: Lot:[id number]:09/01/15Dose:0.5mLRoute:IMSite:L DltdGiven By:MARTY signed MAMMOGRAM, SCREENING, BOTH BREAST On: 05-Feb-2015 Intent (97319)By: Tessie Greene DO Comments: reilly DEXA SCAN AXIAL SKELETON (78890)By: On: 05-Feb-2015 Intent Tessie Greene DO Comments: reilly Solu -Medrol Injection, 125 mg On: 09-Dec-2014 Intent (J2930)By: Acacia Whaley CNP Comments: lot:[id number]:route:IMdose:125MGsite: R glutGiven by: ROSANGELA Gamble MAMMOGRAM, SCREENING, BOTH BREAST On: 13-Mar-2014 Intent (99045)By: Tessie Greene DO ADMINISTRATION OF INFLUENZA VIRUS On: 13-Mar-2014 Intent VACCINE (G0008)By: Tessie Greene DO FLU VAC, SPLIT, >3 YEARS, INTRAMUSC On: 13-Mar-2014 Intent (14409)By: Tessie Greene DO Comments: lot: [id number]: 12-01-13site/route: L del/IMamt: 0.5mLVIS signed when applicableROSANGELA Villa Eprescribed prescriptions (G8553)By: On: 16-Sep-2013 Intent Tessie Greene DO Eprescribed prescriptions (G8553)By: On: 18-Mar-2013 Intent Libby Herndon FLU VAC, SPLIT, >3 YEARS, INTRAMUSC On: 20-Feb-2013 Intent (77027)By: Fallon Carranza Comments: Lot:[id number]:Dose:0.5mLRoute:IMSite:L DltdGiven By:MARTY signed IMMUNIZ ADMNIN, 1 VAC, SNGL/COMBO On: 20-Feb-2013 Intent (11638)By: Fallon Carranza MAMMOGRAM, SCREENING, BOTH BREASTS On: 31-Dec-2012 Intent (80878)By: Tessie Greene DO Eprescribed prescriptions (G8553)By: On: 11-Nov-2012 Intent Libby Herndon Eprescribed prescriptions (G8553)By: On: 23-Sep-2012 Intent Libby Herndon EKG (62857)By: Libby Herndon On: 21-Aug-2012 Intent Comments: ekg showed normal sinus rhythym, normal axis, no acute st/t wave changes Eprescribed prescriptions (G8553)By: On: 25-Jun-2012 Intent Tanya Bermudez LPN PNEUM VAC ADLT/IMUMNOSPR, SBC/INTRM On: 03-May-2012 Intent (58031)By: Tessie Greene DO Comments: Lot:[id number]:08-06-13Dose:0.5mLRoute:IMSite:L armGiven By:AGA ADMINISTRATION OF PNEUMOCOCCAL On: 03-May-2012 Intent VACCINE (G0009)By: Tessie Greene DO Eprescribed prescriptions (G8553)By: On: 03-May-2012 Intent Libby Herndon Vfloobkhd-Qtn-Gyapd (69049)By: Jovana On: 08-Apr-2012 Intent Acacia OJEDA DXA, BONE DENSITY, AXIAL SKELETON On: 30-Jan-2012 Intent (59778)By: Tessie Greene DO MAMMOGRAM, SCREENING, BOTH BREASTS On: 30-Jan-2012 Intent (40452)By: Tessie Greene DO IMMUNIZ ADMNIN, 1 VAC, SNGL/COMBO On: 30-Jan-2012 Intent (00753)By: Megan Phillips LPN Comments: Lot/Exp: [id number], 11/2011Given in L Dltd, IMPrefilled SyringeBy ROEL Guzman FLU VAC, SPLIT, >3 YEARS, INTRAMUSC On: 30-Jan-2012 Intent (11655)By: Megan Phillips LPN Breast Screening - BilateralBy: [...] DO, Tessie A On: 01-May-2011 Intent EKG (78492)By: Libby Herndon On: 01-May-2011 Intent Comments: ekg showed normal sinus rhythym, normal axis, no acute st/t wave changes poor r wave progression unchanged TDAP VACCINE >7 IM (73021)By: On: 01-May-2011 Intent Libby Herndon Comments: work FLU VAC, SPLIT, >3 YEARS, INTRAMUSC On: 01-May-2011 Intent ([id number])By: Libby Herndon Comments: work DXA, BONE DENSITY, AXIAL SKELETON On: 09-Feb-2011 Intent ([id number])By: Monserrat Granado LPN MAMMOGRAM, SCREENING, BOTH BREASTS On: 09-Feb-2011 Intent ([id number])By: Monserrat Granado LPN Radiology - Ankle - LeftBy: Ciesa On: 14-Dec-2010 Intent RUSTY Acacia Wang Comments: call wet read to Acacia Whaley Eprescribed prescriptions ([id number])By: On: 15-Nov-2010 Intent Jc DO Tessie A CT - Abdomen & PelvisBy: Jc DO, On: 26-Oct-2009 Intent Tessie A Comments: tomorrow call wet read EKG ([id number])By: Libby Herndon On: 30-Aug-2009 Intent Comments: do [...] DO, On: 07-Jun-2007 Intent Tessie A EKG ([id number])By: Jc BROUSSARD Tessie A On: 28-Apr-2007 Intent Comments: ordered to be done at the hospital CT - Brain/HeadBy: Tessie Greene DO On: 20-Mar-2007 Intent Comments: with and without contrast- please do stat and call wet read IMMUNIZ ADMNIN, 1 VAC, SNGL/COMBO On: 04-Apr-2006 Intent ([id number])By: Libby Herndon PNEUM VAC ADLT/IMUMNOSPR, SBC/INTRM On: 04-Apr-2006 Intent ([id number])By: Libby Herndon Comments: Lot #:Expiration date:Amount given:Route: IMSite given:LEFT DELTOIDGiven by: JESSICA Weinberg IMMUNIZ ADMNIN, 1 VAC, SNGL/COMBO On: 04-Apr-2006 Intent ([id number])By: Tessie Greene DO PNEUM VAC ADLT/IMUMNOSPR, SBC/INTRM On: 04-Apr-2006 Intent ([id number])By: Tessie Greene DO Planned Medications INJECTION, METHYLPREDNISOLONE [...] The patient does have durable power of employee benefits attorney and living will. The patient has [...] The patient does have durable power of employee benefits attorney and living will. The patient has noticed nothing from the geriatic depre ssion scale. Other providers contributing to the patient's care are other: (hearing and eye drLatrell herrera and Dr. Zamora). Note for Annual Medicare Exam: NO labwork done for today and pt had her well woman exam done with [facility].-weight down trying - her bp up little [...] she hasnt needed too- more active in yazdanism and that has h elped- no gerd [...] effective than benicar- she said mood in [facility]- doesnt want to change- - [...] to get back on track and joining [employer]- her mood is pretty good and brother [...] g to weight watchers- still struggling with [employer]- retiring in may - had labs [...] with welbutrin more energy and seeing the public welfare worker-- no issues withthe crestor- wever since cortison [...] for chronic medical issues: her brother in [facility] and got a pressure sore- having to [...] df's recieved documents from Dr. Nichole at [facility]). Note for Follow up, Laboratory Test [...] peumovax- needs florina bloodwork- gettting back on [employer] watchers, [ADDITIONAL REASON] Follow up for chronic [...] in the past ,difficulty sleeping ,drug abuse ,hogshead cooper awakening ,episodes of spontaneous crying ,e xcessive [...] [facility] End: 17-Jan-2006 16:04 Payers MedicareEast [facility]/Supplement Ame lopez guarantor
--- OUTSIDE RECORDS SUMMARY | 2018-08-24 15:42 | XMS RPT_ITS | Continuity of Care Document ---
:1940 External Reference #:[id number] Author Organization [facility] Address [address] [place] [address] Phone Care Team Providers Name Role Phone Catrina Perry DO Unavailable Ricardo Rollins MD Unavailable Dr. Addison Kimball Unavailable Poly Bunn Unavailable Duek PLASCENCIA, Dr. Janes Dougherty Unavailable Winter, Ladi Unavailable Unavailable Sadia Goel Unavailable Unavailable Libby Herndon Unavailable Unavailable Fallon Carranza Unavailable Unavailable Order Schedule Clerk, System Unavailable Unavailable Carolin Garber LPN Unavailable [...] 1 qd (20 MG) Active CITRACAL MAXIMUM, [id number] (Oral Tablet) 1 tab bid (315-250 MG-UNIT) [...] for 0 days Refills: 0 Ordered:31-Dec-2017 Slarb AIR SAW OPERATOR, AngelaActive Omeprazole 20 MG Oral Capsule Delayed [...] Name Dates Details Bactrim *ANTI-INFECTIVE AGENTS - [facility].* Status: Active (Allergy) Comments: nausea Allergy to [...] WITH Contrast Result: Comments: See Note; NOTES: [facility] Services [address] [place] [address] Soft Tissue Neck WITH Contrast MR#: [id number] Acct: [id number] Name: HERMAN LEONARD Rep #: [id number] : 1940 F 77 From: Michael Alonso MD PCP: Catrina Perry DO Status: REG CLI Study: Soft Tissue Neck WITH Contrast Date of Exam: 04/10/18 Exam# [id number] Ordering Dr: Acacia Whaley STUDY: CT SOFT [...] FINDINGS: Normal bilateral parotid glands. Normal bilateral pick up and delivery driver spaces. Normal bilateral parapharyngeal spaces. Normal bilateral [...] Alonso MD 04/10 at 15:37 EST Tel [phone], Service support , CC: Acacia Whaley NP; Catrina Perry DO Multiple Coil Winder: Signed 10-Apr-2018 Soft Tissue Neck WITH Contrast Result: Comments: See Note; NOTES: [facility] [address] [place] [address] Soft Tissue Neck WITH Contrast MR#: [id number] Acct: [id number] Name: HERMAN LEONARD Rep #: [id number] : 1940 F 77 From: Michael Alonso MD PCP: Catrina Perry DO Status: REG CLI Study: Soft Tissue Neck WITH Contrast Date of Exam: 04/10/18 Exam# [id number] Ordering Dr: Acacia Whaley P-C ADDENDUM by [...] Michael Alonso MD at 8:47 EST Tel [phone], Service support , 04/11/18 0847 Date cc : Acacia Whaley NP; Catrina Perry DO * Signed ADDENDUM by Michael Alonso MD on 04/11/[address]/Soft Tissue Neck WITH Contrast 04/11/18 0854 Date cc: Acacia Arenasmikayla SECURITY FLEX UTILITY OFFICER; Catrina Perry DO * Signed STUDY: CT [...] FINDINGS: Normal bilateral parotid glands. Normal bilateral pick up and delivery driver spaces. Normal bilateral parapharyngeal spaces. Normal bilateral [...] Michael Alonso MD at 15:37 EST Tel [phone], Service support , CC: Acacia Whaley NP; Catrina Perry DO Multiple Coil Winder: Signed 09-Apr-2018 Thyroid Result: Comments: See Note; NOTES: [facility] [address] [place] [address] Thyroid MR#: [id number] Acct: [id number] Name: HERMAN LEONARD Rep #: [id number] : [birth year] F 77 From: Michael Alonso MD PCP: Catrina Perry DO Status: REG CLI Study: Thyroid Date of Exam: 04/09/18 Exam# [id number] Ordering Dr: Acacia Whaley SECURITY FLEX UTILITY OFFICER-C STUDY: THYROID ULTRASOUND REASON FOR EX AM: [...] Alonso MD at 15:[address] Tel [phone], Service support , CC: Acacia Whaley SECURITY FLEX UTILITY OFFICER; Catrina Perry DO Multiple Coil Winder: Signed 19-Dec-2017 Abdomen Single View Result: Comments: See Note; NOTES: [facility] [address] [place] [address] Abdomen Single View MR#: [id number] Acct: [id number] Name: HERMAN LEONARD Rep #: [id number] D OB: 1940 F 76 From: Chris Rachel MD PCP: Catrina Perry DO Status: REG CLI Study: Abdomen Single View Date of Exam: 12/19/17 Exam# [id number] Ordering Dr: Acacia Whaley STUDY: X-RAY - [...] , Service support , CC: Acacia Whaley SECURITY FLEX UTILITY OFFICER; Catrina Perry DO Multiple Coil Winder: Signed 20-May-2015 Dexa Bone Density Study (HP) Result: Comments: See Note; NOTES: [facility] [address] [place] [address] Verdana 4d Dexa Bone Density Study (HP) MR#: [id number] Acct: [id number] Name : HERMAN LEONARD Rep #: [id number] : 1940 F 74 From: Michael Alonso MD PCP: Tessie Greene DO Status: [facility] CL Study: Dexa Bone Density Study (HP) Date of Exam: 05/20/15 Exam# [id number] Radhai ng Dr: Tessie Greene DO STUDY: [...] Michael Alonso MD at 10:30 EST Tel [phone], Service support [phone], CC: Jailyn Yang MD; Tessie Greene DO Multiple Coil Winder: Signed 06-Apr-2015 Bilat Scrn Digital AND CAD Result: Comments: See Note; NOTES: [facility] [address] [place] [address] Verdana 4d Bilat Scrn Digital AND CAD MR#: [id number] Acct: [id number] Name: HERMAN LEONARD Rep #: [id number] : 1940 F 74 From: Michael Alonso MD PCP: Tessie Greene DO Status: REG CLI Study: Db Viverosn Digital AND CAD Date of Exam: 04/06/15 Exam# [id number] Ordering D r: Tessie Greene DO MAMMOGRAPHY [...] Michael Alonso MD at 7:54 EST Tel [phone], Service support [phone], CC: Tessie Greene DO Multiple Coil Winder: Signed 05-Feb-2015 EKG (70008) Comments: ekg showed normal sinus rhythym, normal axis, no acute st/t wave changes Result: [MEASUREMENTS ANALYSIS] Date of Test: 02/05/2015 09:47:50; Heart Rate: 58; [place] Interval: 156; QRS: 93; QT Interval: 420; Corrected QT Interval (QTc): 417; P Wave [place]: 31; QRS Wave [place]: 31; T Wave [place]: 44; Blood Pressure: 122/84 [ECG DIAGNOSTIC STATEMENTS] Date of Test: 02/05/2015 09:47:50; Summary: Sinus Bradycardia WITHIN NORMAL LIMITS 27-Mar-2014 Bilat Scrn Digital & CAD Result: Comments: See Note; NOTES: [facility] [address] [place] [address] Breast Imaging Report MR#: [id number] Acct: [id number] Name: HERMAN LEONARD Rep #: [id number] : 1940 F 73 From: Michael Alonso MD PCP: Tessie Greene DO Status: REG CLI Exam# [id number] Ordering Dr: Tessie Greene DO MAMMOGRAPHY - [...] Michael Alonso MD at 9:36 EDT Tel [phone], Service support [phone], CC: Tessie Greene DO Multiple Coil Winder: Signed 26-Mar-2013 Bilat Scrn Digital & CAD Result: Comments: See Note; NOTES: [facility] Services [address] [place] [address] Breast Imaging Report MR#: [id number] Acct: [id number] Name: HERMAN LEONARD Rep #: [id number] : 1940 F 72 From: Michael Alonso MD PCP: Tessie Greene DO Status: REG CLI Exam# [id number] Ordering Dr: Tessie Greene DO MAMMOGRAPHY - [...] March 26, 2013 at 2:33:33 PM EDT [phone] Electronically Signed GP/GP If you are the referring physician and would like to consult with the radiologist who pr ovided this interpretation, please contact Michael Alonso M.D. at [phone]. If this radiologist is unavailable, you will be directed to another radiologist to assist. If you are a patient w ith a question regarding this report, please contact your referring physician directly. Professional Interpretation Provided By: [employer], Phone , These documents contain legally protected [...] of these documents. CC: Tessie Greene DO Multiple Coil Winder: Signed Immunization Name Dates Details Pneumococcal (2 years and up) on: 04-Apr-2006 Pneumococcal (2 years and up) on: 04-Apr-2006 Comments: Lot #:Expiration date:Amount given:Route: IMSite given:LEFT DELTOIDGiven by: JESSICA Weinberg Family History Unknown Family Member Name Dates Details Father Comments: [place] Status: Active Mother Comments: CHF Status: Active Paternal Grandmother Comments: ABD CA Status: Active Social History Name Dates Details Alcohol Use Comments: Occasional alcohol use Status: Active Non Smoker/No Tobacco Use Status: Active Tobacco use: Never smoker. Status: Active Smoking Status Name Dates Details Never smoker Vital Signs Date Test Result Details 71-Ihh-205241:44 Temperature 97.3 f Comments: Method: Temporal Pulse [...] kg/m2 Body Surface Area Calculated 1.58 m2 56-Ene-811262:20 Comments: 140/82 recheck bp Pulse 65 /min [...] 0.00 cm Results Date Description Value Details 66-Zbs-67393:00 ASP DONE IN LAB See Note (Normal) Comments: [facility] [address] [place], [address] Comments: Patient: HERMAN LEONARD : 1940 (77/) Acct Num: [id number] Phys: Ria PLASCENCIA,[place] Unit Num: [id number] Loc: LAB Specimen: [id number] Received: 04/17/18 - [...] Submitted for cytology study. TC: 5 CPT: 39915, 617723, 63537 , 33149 CYTOLOGY STUDY Slides are reviewed. DIAGNOSIS CYTOLOGY Fine needle aspiration, right neck mass (smear, cell block): Negative for malignant cells. See comment. AM:sp 04/18/18 HEADER OPERATION: FNA, right neck mass PRE-OP DIAGNOSIS: Right neck mass TISSUE SUBMITTED: Right neck mass Signed Janes Arellano 11/15/18 <signature on file> 7-Rfn-545531:47 CREATININE FINGERSTICK Comments: [facility] LaboratoryPoint [address] [place] [address] EGFR WB > 60.0000 mL/min (Normal) CREATININE WB 0.8 mg/dL (Normal) Range: 0.55-1.02 :40 Bilirubin, Direct Comments: Order Date: 03/13/17Order Info: 0788- 1 - *Hepatic Function PanelOrder Info: 01812-2 - *Lipid Profile CC PCPComments: 12 hours fasting, may have water.DR PÉREZ ORDERED LIPID/LIVERDR VICKY ORDERED TS H/CBCD/LIPID/CMP/UA/[facility] [address] [place], [address] D BILI 0.11 mg/dL (Normal) Range: 0.00-0.30 :40 CBC W/Diff, Automated Comments: DR PÉREZ ORDERED LIPID/LIVERDR PERRY ORDERED TSH/CBCD/LIPID/CMP/UA/[facility] [address] [place], [address] SMEAR COMMENT SCANNED (Normal) Absolute [...] 4.2-5.4 WBC 5.8 K/mm3 (Normal) Range: 4.4-11.0 58-Dtm-83041:40 [facility] Comments: Order Date: 03/13/17Order Info: 0788-1 - *Hepatic Function PanelOrder Info: 13841-3 - *Lipid Profile CC PCPComments: 12 hours fasting, may have water.DR PÉREZ ORDERED LIPID/LIVERDR VICKY ORDERED TS Profil H/CBCD/LIPID/CMP/UA/[facility] [address] [place], [address] GAP 5 (Normal) Range: 5-15 CO2 32.0 [...] Comments: Please note revised GLUCOSE reference range doulyxbko89/02/2018. 50-Nkx-67954:40 Lipid Profile Comments: Order Date: 03/13/17Order Info: 0788-1 - *Hepatic Function PanelOrder Info: 65354-1 - *Lipid Profile CC PCPComments: 12 hours fasting, may have water.DR PÉREZ ORDERED LIPID/LIVERDR PERRY ORDERED TS H/CBCD/LIPID/CMP/UA/[facility] [address] [place], [address] VLDL 11 mg/dL (Normal) Range: [...] Comments: DR PÉREZ ORDERED LIPID/LIVERDR VICKY ORDERED TSH/CBCD/LIPID/CMP/UA/[facility] [address] [place], [address] Ratio,Random UR MALB:CREAT 9.7 {mg/g_CRE} (Normal) MICROALBUMIN,UR 5.3 mg/L (Normal) UR CREAT 55.10 mg/dL (Normal) :40 Thyroid Stim Hormone Comments: Order Date: 03/13/17Order Info: 0788-1 - *Hepatic Function PanelOrder Info: 88731-1 - *Lipid Profile CC PCPComments: 12 hours fasting, may have water.DR PÉREZ ORDERED LIPID/LIVERDR VICKY ORDERED TS (TSH) H/CBCD/LIPID/CMP/UA/[facility] [address] [place], [address] TSH 1.84 {uIU/mL} (Normal) Range: 0.358-3.74 :40 Urinalysis, Complete Comments: DR PÉREZ ORDERED LIPID/JUNIOR PERRY ORDERED TSH/CBCD/LIPID/CMP/UA/MIACREHow was Urine Obtained? CLEAN [facility] [address] [place], [address] MUCUS, URINE 0 SEEN {/hpf} [...] (Normal) CLARITY Clear (Normal) COLOR Yellow (Normal) 92-Slo-091200:44 URINE ALEX CULTURE-IDENTIFICATN Comments: PATIENT NOT FASTINGPERFORMED BY: [facility] Idxtfz6603 [facility] [id number] Information: [id number] (59310) Result 1 CNSNSS (Abnormal) Comments: Coagulase negative [...] S Urine Final report Culture,Compreh (Abnormal) ensive 43-Vjs-251530:10 Urinalysis, Office (34573) UA - LEUKOCYTE ESTERASE Small (Normal) UA - NITRITE Negative (Normal) URINE UROBILINGN JASMINE TIMED Normal mg/dL (Normal) UA - PROTEIN Negative mg/dL (Normal) UA - PH 7 (Normal) UA - BLOOD non-hemolyzed trace (Normal) UA - SPECIFIC GRAVITY 1.015 (Normal) UA - KETONES Negative mg/dL (Normal) UA - BILIRUBIN Negative (Normal) UA - GLUCOSE Negative (Normal) 43-Clr-817667:16 Basic Metabolic Profile (BMP) Comments: [facility] [address] [facility] [address] [place], [place], [address] ; will review at appt GAP 6 [...] 7-18 GLU 87 mg/dL (Normal) Range: 70-110 41-Vwx-668497:25 URINE ALEX CULTURE (JASMINE Comments: PATIENT NOT FASTINGPERFORMED BY: [employer]-Tech IndustriesKelly [place] 2490470 [facility] [id number] Information: SRC:[facility] [id number] COL COUNT) (13779) Result 1 NG36 (Normal) Comments: No growth in 36 - 48 hours. Urine Culture,Comprehensive Final report (Normal) 35-Ksp-464761:44 Urinalysis, Office (68456) UA - LEUKOCYTE ESTERASE Negative (Normal) UA - NITRITE Negative (Normal) URINE UROBILINGN JASMINE TIMED Normal mg/dL (Normal) UA - PROTEIN Negative mg/dL (Normal) UA - PH 6.5 (Normal) UA - BLOOD Hemolyzed Trace (Normal) UA - SPECIFIC GRAVITY 1.010 (Normal) UA - KETONES Negative mg/dL (Normal) UA - BILIRUBIN Negative (Normal) UA - GLUCOSE Negative (Normal) 57-Lew-441627:10 URINE ALEX CULTURE (JASMINE Comments: PATIENT NOT FASTINGPERFORMED BY: [facility]-Tech IndustriesHampton Behavioral Health CenterVunwqz2633 [facility] [id number] Information: SRC:[facility] [id number] COL COUNT) (17182) Antimicrobial MIHEAD (Normal) Comments: S = Susceptible; [...] mL (Abnormal) Urine Final report Culture,Comprehensive (Abnormal) 28-Erg-733109:24 Urinalysis, Office (05212) UA - LEUKOCYTE ESTERASE Small (Normal) UA [...] 02-Feb-20157:28 Comprehensive Metabolic Profil Comments: Test performed at:[facility] [address] [facility]. [place], [place] [address] GAP 6 (Normal) Range: 5-15 CO2 29.0 [...] Comments: Please note revised CREATININE reference range wlgqavpiv19/22/2015. BUN 21 mg/dL (Abnormal) Range: 7-18 GLU 85 mg/dL (Normal) Range: 70-110 :28 Lipid Profile Comments: Test performed at:[facility] [address] [facility] [place] [address] ; non-emergent till apt VLDL [...] 200-240 mg/dL Borderline >240 mg/dL High Risk 03-Yaw-71013:35 CBC W/Diff, Automated Comments: Test performed at:[facility] [address] [place] [address] ; non- emergent till apt [...] Range: 4.4-11.0 :35 CRP Comments: Test performed at:[facility] [address] [facility] [place] [address] C-REACTIVE PROT 38.60 mg/L (Abnormal) Range: 0.0-3.0 Comments: C-Reactive Protein (CRP) provides useful information for thediagnosis, therapy and monitoring of inflammatory processesand associated diseases. For the evaluation of Relative Riskfor Cardiovascular Dise ase, a High Sensitivity CRP (HSCRP)should be ordered. :35 Culture, Urine Comments: Test performed at:[facility] [address] [facility] [place] [address] CUUR See Note (Normal) Comments: Urine CultureCulture exhibits no growth. :35 Erythrocyte Sed Rate Comments: Test performed at:[facility] [address] [facility] [place] [address] SED RATE 24 mm/h (Normal) Range: 0-30 08-Uvp-571762:11 URINE ALEX CULTURE-JASMINE COL Comments: PATIENT NOT FASTINGPERFORMED BY: [facility] Ubzqdp4857 [facility] [id number] Information: SRC:UR [id number] COUNT (38282) Result 1 NG36 (Normal) Comments: No growth in 36 - 48 hours. Urine Culture,Comprehensive Final report (Normal) 49-Cxk-336786:11 Urinalysis, Office (76902) UA - LEUKOCYTE ESTERASE Small (Normal) UA - NITRITE Negative (Normal) URINE UROBILINGN JASMINE TIMED Normal mg/dL (Normal) UA - PROTEIN Trace mg/dL (Normal) UA - PH 6 (Abnormal) UA - BLOOD non-hemolyzed trace (Normal) UA - SPECIFIC GRAVITY 1.020 (Normal) UA - KETONES Negative mg/dL (Normal) UA - BILIRUBIN Negative (Normal) UA - GLUCOSE Negative (Normal) 38-Dmx-662105:57 V-Zoster IgG (Immunity) Comments: Test performed at:[facility] [address] [place], [place] [address] VZOST IgG 11912 1894 {index} (Normal) Comments: Negative <135 Equivocal 135 - 165 Positive >165A positive result generally indicates exposure to thepathogen or adm inistration of specific immunoglobulins,but it is not indication of active infection or stageof disease.Performed at: [facility] [id number] Director: Bernardino grady PhD, Phone: [phone]; ADDENDA: has been seen in office since drawn 45-Hlz-29460:48 CBC W/Diff, Automated Comments: Test performed at:[facility] [address] [place] [address] Absolute Lymph 1.40 {X10_3/ul} (Normal) [...] :48 Comprehensive Metabolic Profil Comments: Test performed at:[facility] [address] [place], [place] [address] GAP 4 (Abnormal) Range: 5-15 CO2 28.0 [...] 70-110 :48 Lipid Profile Comments: Test performed at:[facility] [address] [place], [place] [address] VLDL 14 mg/dL (Normal) Range: 5-40 LDL [...] Thyroid Stim Hormone (TSH) Comments: Test performed at:[facility] [address] [place] [address] TSH 1.57 {uIU/mL} (Normal) Range: [...] CHOL 151 mg/dL (Normal) Comments: <200 mg/dL Jszdixhiz059-056 mg/dL Borderline>240 mg/dL High Risk :23 VZG 2963 {index} (Normal) Comments: Negative <135Equivocal 135 - 165Positive >165A positive result generally indicates exposure to thepathogen or administration of specific immunoglobulins,but it is not indicati on of active infection or stageof disease.Performed at: - [facility] [id number] Director: Bernardino Camargo PhD, Phone: [phone]; ADDENDA: normal and pt has apt tomorrow [...] CHOL 151 mg/dL (Normal) Comments: <200 mg/dL Qdxpnbbmp024-452 mg/dL Borderline>240 mg/dL High Risk :17 VITD [...] CHOL 127 mg/dL (Normal) Comments: <200 mg/dL Lmwrtmxxy452-995 mg/dL Borderline>240 mg/dL High Risk :49 CBCMD [...] CHOL 129 mg/dL (Normal) Comments: <200 mg/dL Oeoeawmid941-382 mg/dL Borderline>240 mg/dL High Risk HDL 48 [...] 250 nm ol/L)Toxicity >100 ng/mL (250 nmol/L)Effective 201225-Jun-201257-Qle-682946:32 URINE ALEX CULTURE (JASMINE Comments: PATIENT NOT FASTINGPERFORMED BY: [facility] Jtkubb4946 [facility] [id number] Information: SRC:UR [id number] COL COUNT) (12633) Result 1 CNSNSS (Normal) Comments: Coagulase negative Staphylococcus species, not Staphylococcussaprophyticus.100 Colonies/mL .Based on resistance to penicillin and susceptibility to o xacillinthis isolate would be susceptible to:* Penicillinase-stable penicillins; such as: Cloxacillin Dicloxacillin Nafcillin* Beta-lactam/beta-lactamase inhibitor combinations; such as: [place] xicillin-clavulanic acid Ampicillin-sulbactam* Antistaphylococcal cephems; such as: Cefaclor Cefuroxime* Antistaphylococcal carbapenems; such as: Imipenem Meropenem S = Susceptibl e; I = Intermediate; R = Resistant P = Positive; N = Negative MICS are expressed in micrograms per mL Antibiotic RSLT#1 RSLT#2 RSLT#3 RSLT#4 Ciprofloxacin SGentamicin SLevofloxacin SNitrofurantoin SOxacillin SPenicillin RRifampin STetracycline STrimethoprim/Sulfa SVancomycin S Urine Final report Culture,Comprehensi (Normal) ve 18-Hoe-058315:35 Urinalysis, Office (55242) UA - BILIRUBIN Negative (Normal) UA - BLOOD Hemolyzed Large (Normal) UA - GLUCOSE Negative (Normal) UA - KETONES Small mg/dL (Normal) UA - LEUKOCYTE ESTERASE Large (Normal) UA - NITRITE Negative (Normal) UA - PH 7.0 (Normal) UA - PROTEIN 100 mg/dL (Normal) UA - SPECIFIC GRAVITY 1.020 (Normal) URINE UROBILINGN JASMINE TIMED Normal mg/dL (Normal) 5-Oce-320134:19 Urinalysis, Office (69628) UA - BILIRUBIN Negative (Normal) UA - BLOOD Hemolyzed Trace (Normal) UA - GLUCOSE Negative (Normal) UA - KETONES Negative mg/dL (Normal) UA - LEUKOCYTE ESTERASE Negative (Normal) UA - NITRITE Negative (Normal) UA - PH 7.5 (Normal) UA - PROTEIN Negative mg/dL (Normal) UA - SPECIFIC GRAVITY 1.015 (Normal) URINE UROBILINGN JASMINE TIMED Normal mg/dL (Normal) 6-Hae-292549:11 URINE ALEX CULTURE-IDENTIFICATN Comments: PATIENT NOT FASTINGPERFORMED BY: [facility] [address] [place] [id number] Information: [id number] (61895) Result 1 NG36 (Normal) Comments: No growth [...] mg/dL Borderline >240 mg/dL High Risk :33 [facility]UC 0 SEEN {/hpf} (Normal) [...] (Normal) UCLAR Clear (Normal) UCOL Yellow (Normal) 2-Vut-812732:50 RIBS UNIL 2V NO CXR Radiology Report [...] Signed:Mikhail Palencia MDNovember 2011 at 5:31:33 PM [id number] Signed TP/TP If you are the referring physician and would like to consult with theradiologist who provided this inter pretation, please contact Mikhail Palencia MD at [phone]. If this radiologist is unavailable, you will bedirected to another radiologist to assist. If you are a patient with a question regarding this re port, pleasecontactyour referring physician directly. Professional Interpretation Provided By: [employer], Phone , These documents contain legally protected [...] 04/08/12 1738 Sign by: Mikhail Palencia MD 6-Yvz-230592:01 BILAT SCRN DIGITAL & CAD Radiology Report [...] Alonso M.D.March 05, 2012 at 2:05:30 PM [id number] Signed GP/GP If you are the referring physician and would like to consult with theradiologist who provided this interpretation, please contact Stuart Wills at [phone]. If this radiologist is unavailable, youwill be directed to another radiologist to assist. If you are a patient with a question regarding this report, pleasecontactyour referring physician directly. Professional Interpretation Provided By: [employer], Phone , These documents contain legally protected [...] Alonso M.D.March 05, 2012 at 2:52:24 PM [id number] Signed GP/GP If you are the referring physici an and would like to consult with theradiologist who provided this interpretation, please contact Stuart Wills at [phone]. If this radiologist is unavailable, youwill be directed to anot her radiologist to assist. If you are a patient with a question regarding this report, pleasecontactyour referring physician directly. Professional Interpretation Provided By: [employer], Phone , These documents contain legally protected [...] on 1457 Sign by: Michael Alonso MD 21-Zju-68766:26 CBCEM Comments: This patient requested that [facility] send to you acopy [...] Comments: This [facility] to you acopy of their Yearly Employee Health Risk Assessment.A copy of this report is also given to the patient so theycan follow up with your office if they choose. 03-Viq-89967:26 EMP Comments: This patient requested that [facility] to you acopy of their Yearly [...] :26 UAEM Comments: This patient requested that [facility] send to you acopy [...] D deficiency has been defined by the [place] ofMedicine and an Endocrine Society practice guideline as alevel of serum 25-OH vitamin D less than 20 ng/mL (1,2).The Endocrine Society went on to further define vitamin Dinsufficiency as a level between 21 and 29 ng/mL (2).1. IOM ([place] of Medicine). 2010. Dietary reference intakes for calcium and D. [place]: The National Academies Press.2. Paxton MF, Rojelio OSPINA, Cortney GARIBAY, et al. Evaluation, treatment, and prevention of vitamin D deficiency: an Endocrine Society clinical practice guideline. JCEM. 2010; 96(7): 1911-30.Performed at: [address] [id number] Director: Korin Harris MD, Phone: [phone] 64-Sds-000125:34 HEPATOBILIARY IMAGING Radiology Report See Note (Normal) [...] radiologist regarding this report, please call our 50Y0heyvtyx line @ Dictated on 05/31/11 0818 by Ehsan Vázquez DOTranscribed on 05/31/112030 by ITS IMPORTSign by Ehsan Vázquez DO on 05/31/112031 Sign by: Ehsan Vázquez DO 42-Iik-212566:54 TOE(S),MIN 2 VIEWS Radiology Report See Note [...] regarding this rep ort, please call our 25O3opqqebw line @ Dictated on 05/30/11 1150 by [...] 05/02/11 1224 Sign by: MAIA SHELTON MD 09-Ncr-628047:02 CBCD,SMEAR DIFF Comments: appt 05/17/11 RED CELL [...] NEGATIVE 0.06 - 0.59 AT RISK OF WI > OR = 0.60 SUGGEST WI :11 ANKLE,MIN 3 VIEWS Radiology Report See [...] 12/14/10 1005 Sign by: GISSELLE GONZALES MD 31-Owl-97533:52 URINE ALEX CULTURE (JASMINE COL Comments: PATIENT NOT FASTINGPERFORMED BY: [facility] [id number] COUNT) (54989) Result 1 NG36 (Normal) Comments: No growth in 36 - 48 hours. Urine Culture,Comprehensive Final report (Normal) 79-Tnv-31019:07 Urinalysis, Office (88223) UA - BILIRUBIN Negative (Normal) UA - [...] CHOL 150 mg/dL (Normal) Comments: <200 mg/dL Vzcroaxxw592-385 mg/dL Borderline>240 mg/dL High Risk HDL 56 [...] CHOL 150 mg/dL (Normal) Comments: <200 mg/dL Jmplnvoje844-958 mg/dL Borderline>240 mg/dL High Risk LDH 160 [...] (Normal) Comments: Result: NEGATIVE COLOR YELLOW (Normal) 56-Clp-284027:10 BILAT SCRN DIGITAL & CAD Radiology See Note Comments: Exam Number: [id number] MAMMOGRAPHY - BILATERAL SCREENING INDICATION:Routine annual screening [...] not delay biopsy of a clinicallysuspicious abnormality.ADDENDUM: [id number] HPBI/MDS MAMMOGRAPHY - BILATERAL SCREENING INDICATION:Routine annua [...] attach ing a ResultCode to this exam.ADDENDUM: [id number] HPBI/MDS Reported By: GISSELLE GONZALES M.D. 54-Toe-129814:09 DEXA BONE DENSITY STUDY (HP) Radiology Report See Note Comments: Exam Number: [id number] CLINICAL:The patient is a 69-year-old female who is postmenopausal with pasthistory of hormone replacement therapy. History of fracture of X1adrhle history of osteoporosis EXAMINA (Normal) TION:DUAL ENERGY X-RAY ABSORPTIOMETRY / DEXA. TECHNIQUE:Bone Density Measurements (BMD) of lumbar spine and bilateral hipswere obtained using a [employer] scanner. COMPARISON:March 24 999, October 29, 2002, [...] NIH Osteoporosis and Related Bone Diseases http://www.osteo.org2. [employer] ational Society for Clinical Densitometryhttp://www.iscd.org3. National Osteoporosis Foundation http://www.nof.org Reported By: GISSELLE GONZALES M.D. 24-Dec-19 VIT D,25 53778 39.0 ng/mL Range: 32.0-100.0 1012:08 (Normal) Comments: Recent studies consider the lower limit of 32.0 ng/mL to isabel threshold for optimal health.Shneg BURNETT. J Nutr. 2004;135(2):317- 22.Performed at: [place] [id number] 296Lab Director: Korin Harris MD, Phone: [phone] 29-Oct-19 C DIF TOXIN/AG See Note Comments: [...] Crytosporidium parvum,Cyclospora, or Microsporidia.__ TESTING PERFORMED AT [facility]. ORIGINAL REPORT ONFILE IN LAB CONTAINS ADDITIONAL TEST SITE INFORMATION. OVA/ PARASITES EXAM NO OVA, CYSTS, OR PARASITES FOUND. :40 WBC,STOOL See Note (Normal) Comments: FECAL WBCs NONE SEEN 20-Qnk-470207:25 ABDOMEN/PELVIS WITH CONTRAST Radiology Report See Note (Normal) Comments: Exam Number: [id number] CLINICAL:This is a 68-year-old female patient with [...] SED RATE 48 mm/h (Abnormal) Range: 0-30 99-Dku-986789:55 URINE ALEX CULTURE (JASMINE Comments: PATIENT NOT FASTINGPERFORMED BY: [facility] Tzwnkk7028 [facility] [id number] Information: SRC:UR [id number] COL COUNT) (83999) Result 1 NG36 (Normal) Comments: No growth in 36 - 48 hours. Urine Culture,Comprehensive Final report (Normal) 81-Qhr-786690:20 Urinalysis, Office (96249) UA - LEUKOCYTE ESTERASE Small (Normal) UA - NITRITE Negative (Normal) URINE UROBILINGN JASMINE TIMED 2 mg/dL (Normal) UA - PROTEIN Negative mg/dL (Normal) UA - PH 7.0 (Normal) UA - BLOOD Hemolyzed Trace (Normal) UA - SPECIFIC GRAVITY 1.015 (Normal) UA - KETONES Negative mg/dL (Normal) UA - BILIRUBIN Negative (Normal) UA - GLUCOSE Negative (Normal) 70-Prp-00535:11 BREAST UNILATERAL US (HP) Radiology Report See Note (Normal) Comments: Exam Number: [id number] CLINICAL:The patient is a 68-year-old female with [...] CHOL 147 mg/dL (Normal) Comments: <200 mg/dL Inljsbxrf264-691 mg/dL Borderline>240 mg/dL High Risk :03 LIVER ALB 4.2 g/dL (Normal) Range: 3.4-5.0 ALK P 66 U/L (Normal) Range: 50-136 ALT 29 U/L (Normal) Range: 12-78 AST 20 U/L (Normal) Range: 15-37 D BILI 0.09 mg/dL (Normal) Range: 0.00-0.30 T BILI 0.30 mg/dL (Normal) Range: 0.00-1.00 T PROT 7.9 g/dL (Normal) Range: 6.4-8.2 :41 Urinalysis, Office (92307) UA - LEUKOCYTE ESTERASE Trace (Normal) UA [...] Report See Note (Normal) Comments: Exam Number: [id number] CLINICAL: 68-year-old female with knee pain lateral [...] a full thickness radial tear 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 Reported By: John Alcocer M.D. 8-Cep-940925:24 KNEE,4 OR MORE VIEWS (MT) Radiology Report See Note (Normal) Comments: Exam Number: [id number] CLINICAL:Pain X-RAY EXAMINATION RIGHT KNEE TECHNIQUE:4 view(s) [...] change. Osteopenia. Reported By: ARIADNA PERAZA M.D. 3-Kra-040182:23 L/S SPINE,MIN 4 VIEWS (MT) Radiology Report See Note (Normal) Comments: Exam Number: [id number] CLINICAL:Low back pain, radiculopathy X-RAY EXAMINATION: LUMBAR [...] acute fracture. Reported By: ARIADNA PERAZA M.D. 2-Uwc-684803:00 EMP URINALYSIS BILIRUBIN URINE SeeNote (Normal) Comments: [...] Range: 0.2 - 1.0 COLOR YELLOW (Normal) 8-Nrp-429443:00 ROUTINE UA BILIRUBIN URINE SeeNote (Normal) Comments: [...] 6.4-8.2 URIC 4.3 mg/dL (Normal) Range: 2.6-6.0 84-Qde-35206:31 DEXA BONE DENSITY STUDY () Radiology Report See Note (Normal) Comments: Exam Number: [id number] BONE DENSITOMETRY HISTORYOsteopenia. TECHNIQUE Bone densitometry of the lumbar spine and both hips is now beingperformed. The best criteria for evaluation of osteoporosis is theT-value, which represents the comparison of the patient's bone mass leigh expected peak bone mass. For most patients, the mean T-value of H4pownbht L4 is used to evaluate the lumbar [...] density is measured at 7.2% less than pp0687.The T-valu e of the right femoral neck is -2 which is in the range ofosteopenia.The T- value of the total right hip is -1.7 which is in the range ofosteopenia. IMPRESSIONThere is osteopenia of the lumbar spine and both hips. Reported By: GISSELLE GONZALES M.D. 23-Fow-65885:54 BREAST UNILATERAL US () Radiology Report See Note (Normal) Comments: Exam Number: [id number] TARGETED LEFT BREAST ULTRASOUND HISTORYAbnormal mammogram. High-resolution [...] Greene's office and the office was called [id number] hours December 22, 2008. Reported By: GISSELLE GONZALES M.D. 60-Loc-231402:35 [facility] D[facility]ITAL [facility] Radiology Report See Note (Normal) Comments: Exam Number: [id number] MAMMOGRAM, UNILATERAL LEFT DIAGNOSTIC DIGITAL AND CAD [...] 1992 (MQSA). The mammograms werealso examined w [facility] computer-aided detection software ([employer] Reported By: GISSELLE GONZALES M.D. :30 BILAT SCRN DIGITAL & CAD Radiology Report See Note (Normal) Comments: Exam Number: [id number] MAMMOGRAM, BILATERAL SCREENING DIGITAL AND CAD HISTORYRoutine [...] mammograms werealso examined with computer-aided detection software ([employer] Reported By: GISSELLE GONZALES M.D. 78-Ybj-780608:37 BMP BUN 15 mg/dL (Normal) Range: 7-18 [...] g/dL (Normal) Range: 6.4-8.2 :11 AT3 F/I 75229 AT3 AG, IMMUNOL 131 % (Abnormal) Range: 75-130 AT3 FUNCT 91629 131 % (Normal) Range: 75-135 :11 PROT C [id number] PROT C,[id number] 169 % (Abnormal) Range: 74-151 Comments: Performed At: [address] [id number] PROTEIN C 09415 106 % (Normal) Range: 70-140 :11 PROT S 819398 PROTEIN S, FREE 107 % (Normal) Range: 56-124 PROTEIN S, FUNC 82 % (Normal) Range: 60-145 PROTEIN S,TOTAL 137 % (Normal) Range: 58-150 :38 A-CARDIO [id number] Comments: ORDER ALSO STATES ANTIPHOSPHOLIPIDS, WHICH IS [...] mm/h (Normal) Range: 0-30 :38 FAC II 874707 Comments: ORDER ALSO STATES ANTIPHOSPHOLIPIDS, WHICH IS A SYNONYM OFANTICARDIOLIPIN FACTOR II,DNA Comment (Normal) Comments: NEGATIVENo mutation identified.Comment:A point mutation (U54732P) in the Factor II (prothrombin)gene is the [...] antithrombinIII, protein C and protein S. :38 [facility] [id number] Comments: ORDER ALSO STATES ANTIPHOSPHOLIPIDS, WHICH IS [...] , elevatedhomocysteine levels, or a Factor II/prothrombin mutation(N52865D). Contact you r local [facility] for information [...] mg/dL VLDL 31 mg/dL (Normal) Range: 5-40 92-Dvp-745522:35 CULTURE, URINE URINE CULTURE See Note (Normal) Comments: Predominant colony type being a gram positive trevor, probableLactobacillus species. COLONY COUNT 50,000-80,000 ORGANISM 1: MIXED GRAM POSITIVE ORGANISMS 18-Rew-219771:35 ROUTINE UA BILIRUBIN URINE SeeNote (Normal) Comments: [...] 0.2 EU/dl (Normal) Range: 0.2 - 1.0 34-Ved-47256:48 Urinalysis, Office (08682) UA - BILIRUBIN Negative (Normal) UA - BLOOD Negative (Normal) UA - GLUCOSE Negative (Normal) UA - KETONES Negative mg/dL (Normal) UA - LEUKOCYTE ESTERASE Trace (Normal) UA - NITRITE Negative (Normal) UA - PH 6.5 (Normal) UA - PROTEIN Negative mg/dL (Normal) UA - SPECIFIC GRAVITY 1.005 (Normal) URINE UROBILINGN JASMINE TIMED 2 mg/dL (Normal) 9-Wnb-061683:04 BILAT SCRN DIGITAL & CAD Radiology Report See Note (Normal) Comments: Exam Number: [id number] MAMMOGRAM, BILATERAL SCREENING DIGITAL AND CAD HISTORYRoutine [...] werea lso examined with computer-aided detection software ([employer].). Reported By: GISSELLE GONZALES M.D. 1-Lrx-628836:41 DEXA BONE DENSITY STUDY (HP) Radiology Report See Note (Normal) Comments: Exam Number: [id number] BONE DENSITOMETRY HISTORYOsteopenia. TECHNIQUE Bone densitometry of [...] density is measured at 0.2% less than xt5334 and 0.1% more than in 2005. IMPRESSIONThere is osteopenia of the lumbar spine and left hip. Reported By: GISSELLE GONZALES M.D. 68-Btb-19822:19 CBC, EMPLOYEE HCT 36.9 % (Abnormal) Range: [...] {mg/24_hr} (Normal) Range: 1.8-6.7 Comments: Performed At: [address] [id number] VMA,UR 3.4 mg/L (Normal) :16 ALDOST,U24 4291 Comments: 24 H URINE TV = 2580 ML ALDOSTERONE,U24 3 {ug/24_hr} (Normal) Range: 2-21 Comments: 1 mo. 1 - 11 1- 12 mos. 1 - 22 1- 16 yrs. 2 - 16 Adult Ranges Normal diet 2 - 21 Low salt 17 - 44 High salt 0 - 14Performed At: [address] [id number] ALDOSTERONE,UR 1 ug/L (Normal) 64-Bcf-506494:17 BRAIN/HEAD W/WO CONTRAST Radiology Report See Note (Normal) Comments: Exam Number: [id number] CT SCAN OF BRAIN HISTORYHeadache. Scans were [...] ethmoid sinusitis. Reported By: GISSELLE GONZALES M.D. 96-Hgy-12777:51 CBC With Differential/Platelet Comments: PERFORMED BY: [facility] CenterMtgesg9541 [facility] [id number] Baso (Absolute) 0.1 {x10E3/uL} (Normal) Range: 0.0-0.2 [...] Comp. Metabolic Panel (14) Comments: PERFORMED BY: [facility] IndustriesHam[facility] CenterCjhbmr[address] [place] [address] [id number] A/G Ratio 1.5 (Normal) Range: 1.1-2.5 Albumin, [...] Sedimentation 4 mm/h (Normal) Comments: PERFORMED BY: [facility]Ham[facility] CenterCfwent1613 [facility] [id number] :51 Rate-Westergren Range: 0-30 :29 CULTURE, URINE URINE CULTURE See Note {CFU/mL} (Normal) Comments: COLONY COUNT >100,000 ORGANISM 1: ENTEROCOCCUS FAECALIS ENTEROCOCCUS FAECALIS: REACTION CIPROFLOXACIN GP $$$ <=0.5 S LEVOFLOXAC IN $$ <=1 S NITROFURANTOIN $ <=32 S PENICILLIN G (ENTEROCOCCUS) $$ 2 S TETRACYCLINE $$ <=1 S VANCOMYCIN $$ <=0.5 S 9-Pdm-652240:29 ROUTINE UA BILIRUBIN URINE SeeNote (Normal) Comments: [...] tissue mass Soft tissue mass : Reviewed Dye Machine Tender Letter Indication: Soft tissue mass Gastroesophageal reflux [...] EASY BRUISABILITY OF SKIN Planned Observations TSH (07174)Indication: Hypercholesterolemia On: Request URINALYSIS, W/ MICRO (68158)Indication: Essential hypertension On: Request MICROALBUMIN: CREATININE RATIO (80995) AND (60406)Indication: Essential hypertension On: : Request METABOLIC PANEL, COMPREHENSIVE (44973)Indication: Essential hypertension On: Request LIPOPROTEIN, BLD, BY NMR (65513)Indication: Hypercholesterolemia On: 60-Qhc-208414:41 Request CBC W/AUTO DIFF WBC (15365)Indication: Essential hypertension On: 16-Rag-552771:41 Request TSH (78801)Indication: Hypercholesterolemia On: :51 Request URINALYSIS, W/ MICRO (82459)Indication: Essential hypertension On: :51 Request MICROALBUMIN: CREATININE RATIO (99220) AND (63342)Indication: Essential hypertension On: :51 Request METABOLIC PANEL, COMPREHENSIVE (25942)Indication: Essential hypertension On: :51 Request LIPID PANEL (35439)Indication: Essential hypertension On: :51 Request CBC W/AUTO DIFF WBC (49093)Indication: Essential hypertension On: :51 Request Metabolic Panel, Basic (30402)Indication: Essential hypertension On: 26-Dop-391647:32 Request Comments: 2 weeks Vitamin D Hydroxy (30353)Indication: Osteopenia On: :23 Request URINALYSIS, W/ MICRO (70761)Indication: Essential hypertension On: :23 Request CBC W/AUTO DIFF WBC (47301)Indication: Essential hypertension On: :23 Request METABOLIC PANEL, COMPREHENSIVE (50022)Indication: Essential hypertension On: :23 Request LIPID PANEL (10876)Indication: Hypercholesterolemia On: :22 Request SED RATE ERYTHROCYTE (28664)Indication: Abdominal pain, acute, generalized On: :47 Request C-REACTIVE PROTEIN (54571)Indication: Abdominal pain, acute, generalized On: :47 Request CBC with auto diff (31539)Indication: Abdominal pain, acute, generalized On: :46 Request URINALYSIS, W/ MICRO (96522)Indication: Essential hypertension On: :27 Request LIPID PANEL (63959)Indication: Hypercholesterolemia On: :27 Request METABOLIC PANEL, COMPREHENSIVE (97239)Indication: Essential hypertension On: :26 Request VARICELLA-ZOSTER ANTBODY (48842)Indication: Hypercholesterolemia On: 56-Nau-494036:58 Request TSH (90849)Indication: Anxiety associated with depression On: :12 Request LIPID PANEL (56482)Indication: Hypercholesterolemia On: :12 Request CBC W/AUTO DIFF WBC (70761)Indication: Essential hypertension On: :12 Request METABOLIC PANEL, COMPREHENSIVE (50249)Indication: Essential hypertension On: :12 Request VARICELLA-ZOSTER ANTBODY (96415)Indication: screen On: :59 Request CBC WITH MANUAL DIFF (19902)Indication: Essential hypertension On: 05-Zrj-571833:59 Request LIPID PANEL (70167)Indication: Hypercholesterolemia On: :58 Request METABOLIC PANEL, COMPREHENSIVE (93739)Indication: Essential hypertension On: 75-Ete-815833:58 Request Vitamin D Hydroxy (51601)Indication: Osteopenia On: :33 Request METABOLIC PANEL, COMPREHENSIVE (69844)Indication: Essential hypertension On: :33 Request LIPID PANEL (71065)Indication: Hypercholesterolemia On: :33 Request METABOLIC PANEL, COMPREHENSIVE (06377)Indication: Essential hypertension On: :57 Request LIPID PANEL (10818)Indication: Hypercholesterolemia On: :56 Request Vitamin D Hydroxy (86929)Indication: Anxiety associated with depression On: 57-Tvf-305407:51 Request CBC WITH MANUAL DIFF (60577)Indication: Essential hypertension On: 63-Uvr-509026:51 Request METABOLIC PANEL, COMPREHENSIVE (83430)Indication: Essential hypertension On: 24-Voh-053252:51 Request TSH (71407)Indication: Anxiety associated with depression On: 44-Nbp-339741:51 Request LIPID PANEL (13439)Indication: Hypercholesterolemia On: 92-Szz-686216:50 Request CBC WITH MANUAL DIFF (86489)Indication: Essential hypertension On: :30 Request METABOLIC PANEL, COMPREHENSIVE (54767)Indication: Essential hypertension On: :25 Request LIPID PANEL (36117)Indication: Hypercholesterolemia On: :25 Request URINALYSIS, W/ MICRO (49218)Indication: Essential hypertension On: 12-Icg-344174:08 Request CBC WITH MANUAL DIFF (77418)Indication: Essential hypertension On: 56-Vzm-514675:08 Request METABOLIC PANEL, COMPREHENSIVE (98676)Indication: Essential hypertension On: 98-Oah-994317:06 Request LIPID PANEL (34313)Indication: Hypercholesterolemia On: 64-Jir-266608:06 Request LIPID PANEL (29420)Indication: Hypercholesterolemia On: :28 Request CBC WITH MANUAL DIFF (33231)Indication: Essential hypertension On: :28 Request METABOLIC PANEL, COMPREHENSIVE (17218)Indication: Essential hypertension On: :28 Request METABOLIC PANEL, COMPREHENSIVE (38545)Indication: Essential hypertension On: :48 Request Vitamin D Hydroxy (26422)Indication: Depression On: :48 Request LIPID PANEL (08707)Indication: Hypercholesterolemia On: 96-Xbf-714776:47 Request CBC WITH MANUAL DIFF (92455)Indication: Other chest pain On: 32-Rhu-470271:19 Request METABOLIC PANEL, COMPREHENSIVE (69633)Indication: Other chest pain On: 31-Fts-557627:18 Request ASSAY, TROPONIN, QUANTITATIVE (aka Troponin I) (57498)Indication: Other chest pain On: 02-Jgt-998286:18 Request Comments: stat CALCIFEDIOL (28444)Indication: Eczema (Renamed from Dermatitis, eczematoid) On: 24-Rzd-784394:34 Request OVA & PARASITE DIR SMEAR (25355)Indication: Diarrhea (Renamed from D (diarrhea)) On: 67-Jfm-231334:11 Request LEUKOCYTE COUNT, FECAL (42511)Indication: Diarrhea (Renamed from D (diarrhea)) On: 77-Egq-299815:10 Request C.Difficile, Stool (81925)Indication: Diarrhea (Renamed from D (diarrhea)) On: 02-Kij-589281:10 Request ALEX CULTURE-STOOL (94261)Indication: Diarrhea (Renamed from D (diarrhea)) On: 62-Lnx-905985:10 Request SED RATE ERYTHROCYTE (18725)Indication: Abdominal pain, acute, left lower quadrant On: 91-Tqh-682427:10 Request C-REACTIVE PROTEIN (38098)Indication: Abdominal pain, acute, left lower quadrant On: 31-Woy-119702:10 Request URINALYSIS, W/ MICRO (07825)Indication: Abdominal pain, acute, left lower quadrant On: 66-Fdx-129015:10 Request METABOLIC PANEL, COMPREHENSIVE (70475)Indication: Abdominal pain, acute, left lower quadrant On: 67-Rpt-976292:10 Request CBC WITH MANUAL DIFF (09270)Indication: Abdominal pain, acute, left lower quadrant On: 89-Xlg-260790:10 Request METABOLIC PANEL, COMPREHENSIVE (89797)Indication: Essential hypertension On: 95-Gxt-880070:47 Request HEPATIC FUNCTION PANEL (52534)Indication: Hypercholesterolemia On: :47 Request LIPID PANEL (55957)Indication: Hypercholesterolemia On: :47 Request Vitamin D Hydroxy (58572)Indication: Osteopenia On: :46 Request LIPID PANEL (39126)Indication: Hypercholesterolemia On: :38 Request HEPATIC FUNCTION PANEL (79071)Indication: Hypercholesterolemia On: :38 Request Metabolic Panel, Basic (96111)Indication: DISORDERS, ORGANIC, SLEEP RELATED LEG CRAMPS On: 24-Qxm-733208:17 Request URINALYSIS W/O MICRO (88861)Indication: Essential hypertension On: :48 Request TSH (74362)Indication: Essential hypertension On: :48 Request METABOLIC PANEL, COMPREHENSIVE (31967)Indication: Essential hypertension On: 2-Bye-986351:48 Request CBC WITH MANUAL DIFF (28132)Indication: Essential hypertension On: :48 Request LIPID PANEL (02370)Indication: Hypercholesterolemia On: :48 Request CBC WITH MANUAL DIFF (11004)Indication: Anemia, unspecified On: 92-Hpb-95145:51 Request LIPID PANEL (47693)Indication: Hypercholesterolemia On: :31 Request HEPATIC FUNCTION PANEL (93946)Indication: Hypercholesterolemia On: :41 Request LIPID PANEL (03828)Indication: Hypercholesterolemia On: :41 Request SED RATE ERYTHROCYTE (11020)Indication: Headache (Renamed from Cephalalgia) On: 25-Fud-93133:40 Request METABOLIC PANEL, COMPREHENSIVE (93455)Indication: Headache (Renamed from Cephalalgia) On: :39 Request CBC WITH MANUAL DIFF (61629)Indication: Headache (Renamed from Cephalalgia) On: :39 Request CBC WITH MANUAL DIFF (77931)Indication: EASY BRUISABILITY OF SKIN On: :59 Request PTT (ACTIVATED PARTIAL THROMBOPLASTIN TIME) (08375)Indication: EASY BRUISABILITY OF SKIN On: :59 Request PT (PROTHROMBIN TIME) (31603)Indication: EASY BRUISABILITY OF SKIN On: :59 Request HEPATIC FUNCTION PANEL (45188)Indication: Hypercholesterolemia On: :54 Request LIPID PANEL (70458)Indication: Hypercholesterolemia On: :54 Request Planned Encounters Medical; 2 Week FU - On: 03-May-2018 11:45 [facility] Catrina Perry DO, DO, [facility]; 4 Month FU - On: 16-Aug-2018 10:00 [facility] Catrina Perry DO, DO, [facility] Planned Procedures CT OF NECK WITHOUT THEN WITH On: 09-Apr-2018 Intent INTRAVENOUS CONTRAST (54175)By: Comments: include thyroid Acacia Whaley CNP Ultrasound - ThyroidBy: Jovana OJEDA, On: 09-Apr-2018 Intent Acacia Wang Comments: attetion soft tissue rt side of neck Flu Vaccine (Quadrivalent) 42868Xz: On: 13-Mar-2018 Intent Ladi Max Comments: Lot #[id number]-L dltd, IMDose prefilled syringegiven by:SABINA Mclain reviewed and ABN signed FLAT PLATE (26286)By: Jovana OJEDA, On: 19-Dec-2017 Intent Acacia Wang ELECTROCARDIOGRAM, COMPLETE (ECG) On: 12-Dec-2017 Intent (16971)By: Catrina Perry DO Comments: nsr no acute chg Catrina Perry DO Bone Density StudyBy: Tessie Greene DO On: 10-May-2015 Intent A Comments: screening ADMINISTRATION OF INFLUENZA VIRUS On: 05-Feb-2015 Intent VACCINE (G0008)By: Tesise Greene DO A Flu Vaccine (Quadrivalent) 60524Uq: On: 05-Feb-2015 Intent Tessie Greene DO Comments: Lot:[id number]:09/01/15Dose:0.5mLRoute:IMSite:L DltdGiven By:MARTY signed MAMMOGRAM, SCREENING, BOTH BREAST On: 05-Feb-2015 Intent (52629)By: Tessie Greene DO Comments: reilly DEXA SCAN AXIAL SKELETON (25038)By: On: 05-Feb-2015 Intent Tessie Greene DO Comments: reilly Solu -Medrol Injection, 125 mg On: 09-Dec-2014 Intent (J2930)By: Acacia Whaley CNP Comments: lot:[id number]:route:IMdose:125MGsite: R glutGiven by: ROSANGELA Gamble MAMMOGRAM, SCREENING, BOTH BREAST On: 13-Mar-2014 Intent (36882)By: Tessie Greene DO ADMINISTRATION OF INFLUENZA VIRUS On: 13-Mar-2014 Intent VACCINE (G0008)By: Tessie Greene DO FLU VAC, SPLIT, >3 YEARS, INTRAMUSC On: 13-Mar-2014 Intent (02807)By: Tessie Greene DO Comments: lot: [id number]: 12-01-13site/route: L del/IMamt: 0.5mLVIS signed when applicableROSANGELA Villa Eprescribed prescriptions (G8553)By: On: 16-Sep-2013 Intent Tessie Greene DO Eprescribed prescriptions (G8553)By: On: 18-Mar-2013 Intent Libby Herndon FLU VAC, SPLIT, >3 YEARS, INTRAMUSC On: 20-Feb-2013 Intent (69988)By: Fallon Carranza Comments: Lot:[id number]:Dose:0.5mLRoute:IMSite:L DltdGiven By:MARTY signed IMMUNIZ ADMNIN, 1 VAC, SNGL/COMBO On: 20-Feb-2013 Intent (15588)By: Fallon Carranza MAMMOGRAM, SCREENING, BOTH BREASTS On: 31-Dec-2012 Intent (08069)By: Tessie Greene DO Eprescribed prescriptions (G8553)By: On: 11-Nov-2012 Intent Libby Herndon Eprescribed prescriptions (G8553)By: On: 23-Sep-2012 Intent Libby Herndon EKG (59786)By: Libby Herndon On: 21-Aug-2012 Intent Comments: ekg showed normal sinus rhythym, normal axis, no acute st/t wave changes Eprescribed prescriptions (G8553)By: On: 25-Jun-2012 Intent Tanya Bermudez LPN PNEUM VAC ADLT/IMUMNOSPR, SBC/INTRM On: 03-May-2012 Intent (60842)By: Tessie Greene DO Comments: Lot:[id number]:08-06-13Dose:0.5mLRoute:IMSite:L armGiven By:AGA ADMINISTRATION OF PNEUMOCOCCAL On: 03-May-2012 Intent VACCINE (G0009)By: Tessie Greene DO Eprescribed prescriptions (G8553)By: On: 03-May-2012 Intent Libby Herndon Ecwnnprbf-Ncp-Bzmph (30122)By: Jovana On: 08-Apr-2012 Intent Acacia OJEDA DXA, BONE DENSITY, AXIAL SKELETON On: 30-Jan-2012 Intent (43325)By: Tessie Greene DO MAMMOGRAM, SCREENING, BOTH BREASTS On: 30-Jan-2012 Intent (23260)By: Tessie Greene DO IMMUNIZ ADMNIN, 1 VAC, SNGL/COMBO On: 30-Jan-2012 Intent (57497)By: Megan Phillips LPN Comments: Lot/Exp: [id number], 11/2011Given in L Dltd, IMPrefilled SyringeBy ROEL Guzman FLU VAC, SPLIT, >3 YEARS, INTRAMUSC On: 30-Jan-2012 Intent (88009)By: Megan Phillips LPN Breast Screening - BilateralBy: [...] DO, Tessie A On: 01-May-2011 Intent EKG (53892)By: Libby Herndon On: 01-May-2011 Intent Comments: ekg showed normal sinus rhythym, normal axis, no acute st/t wave changes poor r wave progression unchanged TDAP VACCINE >7 IM (12506)By: On: 01-May-2011 Intent Libby Herndon Comments: work FLU VAC, SPLIT, >3 YEARS, INTRAMUSC On: 01-May-2011 Intent (27985)By: Libby Herndon Comments: work DXA, BONE DENSITY, AXIAL SKELETON On: 09-Feb-2011 Intent (48385)By: Monserrat Granado LPN MAMMOGRAM, SCREENING, BOTH BREASTS On: 09-Feb-2011 Intent (74171)By: Monserrat Granado LPN Radiology - Ankle - LeftBy: Ciesa On: 14-Dec-2010 Intent RUSTY Acacia Wang Comments: call wet read to Acacia Whaley Eprescribed prescriptions ([id number])By: On: 15-Nov-2010 Intent Jc DO Tessie A CT - Abdomen & PelvisBy: Jc DO, On: 26-Oct-2009 Intent Tessie A Comments: tomorrow call wet read EKG ([id number])By: Libby Herndon On: 30-Aug-2009 Intent Comments: do [...] DO, On: 07-Jun-2007 Intent Tessie A EKG ([id number])By: Jc BROUSSARD Tessie A On: 28-Apr-2007 Intent Comments: ordered to be done at the hospital CT - Brain/HeadBy: Tessie Greene DO On: 20-Mar-2007 Intent Comments: with and without contrast- please do stat and call wet read IMMUNIZ ADMNIN, 1 VAC, SNGL/COMBO On: 04-Apr-2006 Intent ([id number])By: Libby Herndon PNEUM VAC ADLT/IMUMNOSPR, SBC/INTRM On: 04-Apr-2006 Intent ([id number])By: Libby Herndon Comments: Lot #:Expiration date:Amount given:Route: IMSite given:LEFT DELTOIDGiven by: JESSICA Weinberg IMMUNIZ ADMNIN, 1 VAC, SNGL/COMBO On: 04-Apr-2006 Intent ([id number])By: Tessie Greene DO PNEUM VAC ADLT/IMUMNOSPR, SBC/INTRM On: 04-Apr-2006 Intent ([id number])By: Tessie Greene DO Planned Medications INJECTION, METHYLPREDNISOLONE [...] The patient does have durable power of civil attorney and living will. The patient has [...] The patient does have durable power of civil attorney and living will. The patient has noticed nothing from the geriatic depre ssion scale. Other providers contributing to the patient's care are other: (hearing and eye drLatrell herrera and Dr. Zamora). Note for Annual Medicare Exam: NO labwork done for today and pt had her well woman exam done with [facility] [employer].-weight down trying - her bp up little [...] she hasnt needed too- more active in denominational and that has h elped- no gerd [...] effective than benicar- she said mood in [facility] is reasonable- doesnt want to change- - [...] to get back on track and joining [employer] at [employer]- her mood is pretty good and brother [...] g to weight watchers- still struggling with [employer]- retiring in may - had labs [...] with welbutrin more energy and 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 Nichole at [facility]). 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
--- OUTSIDE RECORDS SUMMARY | 2018-08-24 15:43 | XMS RPT_ITS | Continuity of Care Document ---
:1940 External Reference #:[id number] Author Organization [facility] Address [address] [place] [address] Phone Care Team Providers Name Role Phone Catrina Perry DO Unavailable Ricardo Rollins MD Unavailable Dr. Addison Kimball Unavailable Poly Bunn Unavailable Duke PLASCENCIA, Dr. Janes Dougherty Unavailable Winter, Ladi Unavailable Unavailable Sadia Goel Unavailable Unavailable Libby Herndon Unavailable Unavailable Fallon Carranza Unavailable Unavailable Staff Field Engineer, System Unavailable Unavailable Carolin Garber LPN Unavailable [...] 1 qd (20 MG) Active CITRACAL MAXIMUM, [id number] (Oral Tablet) 1 tab bid (315-250 MG-UNIT) [...] for 0 days Refills: 0 Ordered:31-Dec-2017 Slarb ANALOG DEVICE DESIGNER, AngelaActive Omeprazole 20 MG Oral Capsule Delayed [...] Name Dates Details Bactrim *ANTI-INFECTIVE AGENTS - [facility] [place] [facility] [place] Status: Active (Allergy) Comments: nausea Allergy to [...] Comments: See Note; NOTES: [facility] Imaging Services [address] [place] [address] Soft Tissue Neck WITH Contrast MR#: [id number] Acct: [id number] Name: HERMAN LEONARD Rep #: [id number] : 1940 F 77 From: Michael Alonso MD PCP: Catrina Perry DO Status: REG CLI Study: Soft Tissue Neck WITH Contrast Date of Exam: 04/10/18 Exam# [id number] Ordering Dr: Acacia Whaley STUDY: CT SOFT [...] FINDINGS: Normal bilateral parotid glands. Normal bilateral ethernet network architect spaces. Normal bilateral parapharyngeal spaces. Normal bilateral [...] Alonso MD 04/10 at 15:37 EST Tel [phone], Service support , CC: Acacia Whaley NP; Catrina Perry DO Explosive Ordnance Disposal Manager: Signed 10-Apr-2018 Soft Tissue Neck WITH Contrast Result: Comments: See Note; NOTES: [facility] Imaging Services [address] [place] [address] Soft Tissue Neck WITH Contrast MR#: [id number] Acct: [id number] Name: HERMAN LEONARD Rep #: [id number] : 1940 F 77 From: Michael Alonso MD PCP: Catrina Perry DO Status: REG CLI Study: Soft Tissue Neck WITH Contrast Date of Exam: 04/10/18 Exam# [id number] Ordering Dr: Acacia Whaley P-C ADDENDUM by [...] Michael Alonso MD at 8:47 EST Tel [phone], Service support , 04/11/18 0847 Date cc : Acacia Whaley NP; Catrina Perry DO * Signed ADDENDUM by Michael Alonso MD on 04/11/[address]/Soft Tissue Neck WITH Contrast 04/11/18 0854 Date cc: Acacia Arenasmikayla TYPEWRITER RIBBON WINDER; Catrina Perry DO * Signed STUDY: CT [...] FINDINGS: Normal bilateral parotid glands. Normal bilateral ethernet network architect spaces. Normal bilateral parapharyngeal spaces. Normal bilateral [...] Michael Alonso MD at 15:37 EST Tel [phone], Service support , CC: Acacia Whaley NP; Catrina Perry DO Explosive Ordnance Disposal Manager: Signed 09-Apr-2018 Thyroid Result: Comments: See Note; NOTES: [facility] Imaging Services [address] [place] [address] Thyroid MR#: [id number] Acct: [id number] Name: HERMAN LEONARD Rep #: [id number] : [birth year] F 77 From: Michael Alonso MD PCP: Catrina Perry DO Status: REG CLI Study: Thyroid Date of Exam: 04/09/18 Exam# [id number] Ordering Dr: Acacia Whaley TYPEWRITER RIBBON WINDER-C STUDY: THYROID ULTRASOUND REASON FOR EX AM: [...] Alonso MD at 15:[address] Tel [phone], Service support , CC: Acacia Whaley TYPEWRITER RIBBON WINDER; Catrina Perry DO Explosive Ordnance Disposal Manager: Signed 19-Dec-2017 Abdomen Single View Result: Comments: See Note; NOTES: [facility] Imaging Services [address] [place] [address] Abdomen Single View MR#: [id number] Acct: [id number] Name: HERMAN LEONARD Rep #: [id number] D OB: 1940 F 76 From: Chris Rachel MD PCP: Catrina Perry DO Status: REG CLI Study: Abdomen Single View Date of Exam: 12/19/17 Exam# [id number] Ordering Dr: Acacia Whaley STUDY: X-RAY - [...] , Service support , CC: Acacia Whaley TYPEWRITER RIBBON WINDER; Catrina Perry DO Explosive Ordnance Disposal Manager: Signed 20-May-2015 Dexa Bone Density Study (HP) Result: Comments: See Note; NOTES: [facility] Imaging Services [address] [place] [address] Verdana 4d Dexa Bone Density Study (HP) MR#: [id number] Acct: [id number] Name : HERMAN LEONARD Rep #: [id number] : 1940 F 74 From: Michael Alonso MD PCP: Tessie Greene DO Status: [facility] CL Study: Dexa Bone Density Study (HP) Date of Exam: 05/20/15 Exam# [id number] Radhai ng Dr: Tessie Greene DO STUDY: [...] Michael Alonso MD at 10:30 EST Tel [phone], Service support [phone], CC: Jailyn Yang MD; Tessie Greene DO Explosive Ordnance Disposal Manager: Signed 06-Apr-2015 Bilat Scrn Digital AND CAD Result: Comments: See Note; NOTES: [facility] Imaging Services [address] [place] [address] Verdana 4d Bilat Scrn Digital AND CAD MR#: [id number] Acct: [id number] Name: HERMAN LEONARD Rep #: [id number] : 1940 F 74 From: Michael Alonso MD PCP: Tessie Greene DO Status: REG CLI Study: Db Viverosn Digital AND CAD Date of Exam: 04/06/15 Exam# [id number] Ordering D r: Tessie Greene DO MAMMOGRAPHY [...] Michael Alonso MD at 7:54 EST Tel [phone], Service support [phone], CC: Tessie Greene DO Explosive Ordnance Disposal Manager: Signed 05-Feb-2015 EKG (31965) Comments: ekg showed normal sinus rhythym, normal axis, no acute st/t wave changes Result: [MEASUREMENTS ANALYSIS] Date of Test: 02/05/2015 09:47:50; Heart Rate: 58; MA Interval: 156; QRS: 93; QT Interval: 420; Corrected QT Interval (QTc): 417; P Wave [place]: 31; QRS Wave [place]: 31; T Wave [place]: 44; Blood Pressure: 122/84 [ECG DIAGNOSTIC STATEMENTS] Date of Test: 02/05/2015 09:47:50; Summary: Sinus Bradycardia WITHIN NORMAL LIMITS 27-Mar-2014 Bilat Scrn Digital & CAD Result: Comments: See Note; NOTES: [facility] Imaging Services [address] [place] [address] Breast Imaging Report MR#: [id number] Acct: [id number] Name: HERMAN LEONARD Rep #: [id number] : 1940 F 73 From: Michael Alnoso MD PCP: Tessei Greene DO Status: REG CLI Exam# [id number] Ordering Dr: Tessie Greene DO MAMMOGRAPHY - [...] Michael Alonso MD at 9:36 EDT Tel [phone], Service support [phone], CC: Tessie Greene DO Explosive Ordnance Disposal Manager: Signed 26-Mar-2013 Bilat Scrn Digital & CAD Result: Comments: See Note; NOTES: [facility] Imaging Services [address] [place] [address] Breast Imaging Report MR#: [id number] Acct: [id number] Name: HERMAN LEONARD Rep #: [id number] : 1940 F 72 From: Michael Alonso MD PCP: Tessie Greene DO Status: REG CLI Exam# [id number] Ordering Dr: Tessie Greene DO MAMMOGRAPHY - [...] March 26, 2013 at 2:33:33 PM EDT [phone] Electronically Signed GP/GP If you are the referring physician and would like to consult with the radiologist who pr ovided this interpretation, please contact Michael Alonso M.D. at [phone]. If this radiologist is unavailable, you will be directed to another radiologist to assist. If you are a patient w ith a question regarding this report, please contact your referring physician directly. Professional Interpretation Provided By: [employer], Phone , These documents contain legally protected [...] of these documents. CC: Tessie Greene DO Explosive Ordnance Disposal Manager: Signed Immunization Name Dates Details Pneumococcal (2 years and up) on: 04-Apr-2006 Pneumococcal (2 years and up) on: 04-Apr-2006 Comments: Lot #:Expiration date:Amount given:Route: IMSite given:LEFT DELTOIDGiven by: JESSICA Weinberg Family History Unknown Family Member Name Dates Details Father Comments: [place] Status: Active Mother Comments: CHF Status: Active Paternal Grandmother Comments: ABD [place] Status: Active Social History Name Dates Details Alcohol Use Comments: Occasional alcohol use Status: Active Non Smoker/No Tobacco Use Status: Active Tobacco use: Never smoker. Status: Active Smoking Status Name Dates Details Never smoker Vital Signs Date Test Result Details 62-Lpr-029049:44 Temperature 97.3 f Comments: Method: Temporal Pulse [...] kg/m2 Body Surface Area Calculated 1.58 m2 69-Sko-680597:20 Comments: 140/82 recheck bp Pulse 65 /min [...] 0.00 cm Results Date Description Value Details 62-Yqs-88592:00 ASP DONE IN LAB See Note (Normal) Comments: [facility] [address] [place], [address] Comments: Patient: HERMAN LEONARD : 1940 (77/) Acct Num: [id number] Phys: Ria PLASCENCIA,Zion Unit Num: [id number] Loc: LAB Specimen: [id number] Received: 04/17/18 - [...] Submitted for cytology study. TC: 5 CPT: 43527, 175059, 37664 , 36515 CYTOLOGY STUDY Slides are reviewed. DIAGNOSIS CYTOLOGY Fine needle aspiration, right neck mass (smear, cell block): Negative for malignant cells. See comment. AM:sp 04/18/18 HEADER OPERATION: FNA, right neck mass PRE-OP DIAGNOSIS: Right neck mass TISSUE SUBMITTED: Right neck mass Signed Janes Arellano 11/15/18 <signature on file> 9-Dso-263789:47 CREATININE FINGERSTICK Comments: [facility] LaboratoryPoint of [address] [place] [address] EGFR WB > 60.0000 mL/min (Normal) CREATININE WB 0.8 mg/dL (Normal) Range: 0.55-1.02 :40 Bilirubin, Direct Comments: Order Date: 03/13/17Order Info: 0788- [id number] - *Hepatic Function PanelOrder Info: [id number] - *Lipid Profile CC PCPComments: 12 hours fasting, may have water.DR PÉREZ ORDERED LIPID/LIVERDR VICKY ORDERED TS H/CBCD/LIPID/CMP/UA/[facility] [address] [place], [address] D BILI 0.11 mg/dL (Normal) Range: 0.00-0.30 :40 CBC W/Diff, Automated Comments: DR PÉREZ ORDERED LIPID/LIVERDR PERRY ORDERED TSH/CBCD/LIPID/CMP/UA/[facility] [address] [place], [address] SMEAR COMMENT SCANNED (Normal) Absolute [...] 4.2-5.4 WBC 5.8 K/mm3 (Normal) Range: 4.4-11.0 83-Zzl-77860:40 [facility] Met[facility] Comments: Order Date: 03/13/17Order Info: 0788-1 - *Hepatic Function PanelOrder Info: 44821-7 - *Lipid Profile CC PCPComments: 12 hours fasting, may have water.DR PÉREZ ORDERED LIPID/LIVERDR VICKY ORDERED TS Profil H/CBCD/LIPID/CMP/UA/[facility] [address] [place], [address] GAP 5 (Normal) Range: 5-15 CO2 32.0 [...] Comments: Please note revised GLUCOSE reference range ngpiabtgb05/02/2018. 37-Tzy-15477:40 Lipid Profile Comments: Order Date: 03/13/17Order Info: 0788-1 - *Hepatic Function PanelOrder Info: 15643-1 - *Lipid Profile CC PCPComments: 12 hours fasting, may have water.DR PÉREZ ORDERED LIPID/LIVERDR PERRY ORDERED TS H/CBCD/LIPID/CMP/UA/[facility] [address] [place], [address] VLDL 11 mg/dL (Normal) Range: [...] Comments: DR PÉREZ ORDERED LIPID/LIVERDR VICKY ORDERED TSH/CBCD/LIPID/CMP/UA/[facility] [address] [place], [address] Ratio,Random UR MALB:CREAT 9.7 {mg/g_CRE} (Normal) MICROALBUMIN,UR 5.3 mg/L (Normal) UR CREAT 55.10 mg/dL (Normal) :40 Thyroid Stim Hormone Comments: Order Date: 03/13/17Order Info: 0788-1 - *Hepatic Function PanelOrder Info: [id number] - *Lipid Profile CC PCPComments: 12 hours fasting, may have water.DR PÉREZ ORDERED LIPID/LIVERDR VICKY ORDERED TS (TSH) H/CBCD/LIPID/CMP/UA/[facility] [address] [place], [address] TSH 1.84 {uIU/mL} (Normal) Range: 0.358-3.74 :40 Urinalysis, Complete Comments: DR PÉREZ ORDERED LIPID/JUNIOR PERRY ORDERED TSH/CBCD/LIPID/CMP/UA/MIACREHow was Urine Obtained? CLEAN [facility] [address] [place], [address] MUCUS, URINE 0 SEEN {/hpf} [...] (Normal) CLARITY Clear (Normal) COLOR Yellow (Normal) 68-Lvl-473278:44 URINE ALEX CULTURE-IDENTIFICATN Comments: PATIENT NOT FASTINGPERFORMED BY: [facility] Uljhku0102 [facility] [id number] Information: [id number] (79395) Result 1 CNSNSS (Abnormal) Comments: Coagulase negative [...] S Urine Final report Culture,Compreh (Abnormal) ensive 47-Waw-635757:10 Urinalysis, Office (23289) UA - LEUKOCYTE ESTERASE Small (Normal) UA - NITRITE Negative (Normal) URINE UROBILINGN JASMINE TIMED Normal mg/dL (Normal) UA - PROTEIN Negative mg/dL (Normal) UA - PH 7 (Normal) UA - BLOOD non-hemolyzed trace (Normal) UA - SPECIFIC GRAVITY 1.015 (Normal) UA - KETONES Negative mg/dL (Normal) UA - BILIRUBIN Negative (Normal) UA - GLUCOSE Negative (Normal) 74-Kdh-666329:16 Basic Metabolic Profile (BMP) Comments: [facility] [address] [facility] [address] [place], [place], [address] ; will review at appt GAP 6 [...] 7-18 GLU 87 mg/dL (Normal) Range: 70-110 53-Jxr-545252:25 URINE ALEX CULTURE (JASMINE Comments: PATIENT NOT FASTINGPERFORMED BY: AlitaliaChad [place] [id number] [facility] [id number] Information: SRC:[facility] [id number] COL COUNT) (07611) Result 1 NG36 (Normal) Comments: No growth in 36 - 48 hours. Urine Culture,Comprehensive Final report (Normal) 34-Xeg-728199:44 Urinalysis, Office (10817) UA - LEUKOCYTE ESTERASE Negative (Normal) UA - NITRITE Negative (Normal) URINE UROBILINGN JASMINE TIMED Normal mg/dL (Normal) UA - PROTEIN Negative mg/dL (Normal) UA - PH 6.5 (Normal) UA - BLOOD Hemolyzed Trace (Normal) UA - SPECIFIC GRAVITY 1.010 (Normal) UA - KETONES Negative mg/dL (Normal) UA - BILIRUBIN Negative (Normal) UA - GLUCOSE Negative (Normal) 63-Amr-694727:10 URINE ALEX CULTURE (JASMINE Comments: PATIENT NOT FASTINGPERFORMED BY: AlitaliaTrenton Psychiatric HospitalUlxous3258 [facility] [id number] Information: SRC:[facility] [id number] COL COUNT) (68562) Antimicrobial MIHEAD (Normal) Comments: S = Susceptible; [...] mL (Abnormal) Urine Final report Culture,Comprehensive (Abnormal) 61-Buj-084446:24 Urinalysis, Office (35880) UA - LEUKOCYTE ESTERASE Small (Normal) UA [...] Metabolic Profil Comments: Test performed at:[facility] [address] [facility] [place], [place] [address] GAP 6 (Normal) Range: 5-15 CO2 29.0 [...] Comments: Please note revised CREATININE reference range pflskylwd35/22/2015. BUN 21 mg/dL (Abnormal) Range: 7-18 GLU 85 mg/dL (Normal) Range: 70-110 :28 Lipid Profile Comments: Test performed at:[facility] [address] [facility] [place] [address] ; non-emergent till apt VLDL [...] 200-240 mg/dL Borderline >240 mg/dL High Risk 96-Ctf-21483:35 CBC W/Diff, Automated Comments: Test performed at:[facility] [address] [place] [address] ; non- emergent till apt [...] :35 CRP Comments: Test performed at:[facility] [address] [facility] [place] [address] C-REACTIVE PROT 38.60 mg/L (Abnormal) Range: 0.0-3.0 Comments: C-Reactive Protein (CRP) provides useful information for thediagnosis, therapy and monitoring of inflammatory processesand associated diseases. For the evaluation of Relative Riskfor Cardiovascular Dise ase, a High Sensitivity CRP (HSCRP)should be ordered. :35 Culture, Urine Comments: Test performed at:[facility] [address] [facility] [place] [address] CUUR See Note (Normal) Comments: Urine CultureCulture exhibits no growth. :35 Erythrocyte Sed Rate Comments: Test performed at:[facility] [address] [facility] [place] [address] SED RATE 24 mm/h (Normal) Range: 0-30 56-Ozp-541566:11 URINE ALEX CULTURE-JASMINE COL Comments: PATIENT NOT FASTINGPERFORMED BY: [facility] Okrthv5924 [facility] [id number] Information: SRC:UR [id number] COUNT (87851) Result 1 NG36 (Normal) Comments: No growth in 36 - 48 hours. Urine Culture,Comprehensive Final report (Normal) 38-Lcr-109146:11 Urinalysis, Office (06169) UA - LEUKOCYTE ESTERASE Small (Normal) UA - NITRITE Negative (Normal) URINE UROBILINGN JASMINE TIMED Normal mg/dL (Normal) UA - PROTEIN Trace mg/dL (Normal) UA - PH 6 (Abnormal) UA - BLOOD non-hemolyzed trace (Normal) UA - SPECIFIC GRAVITY 1.020 (Normal) UA - KETONES Negative mg/dL (Normal) UA - BILIRUBIN Negative (Normal) UA - GLUCOSE Negative (Normal) 05-Jxl-939036:57 V-Zoster IgG (Immunity) Comments: Test performed at:[facility] [address] [place], [place] [address] VZOST IgG 701[address] 1894 {index} (Normal) Comments: Negative <135 Equivocal 135 - 165 Positive >165A positive result generally indicates exposure to thepathogen or adm inistration of specific immunoglobulins,but it is not indication of active infection or stageof disease.Performed at: [facility] [id number] Director: Bernardino grady PhD, Phone: [phone]; ADDENDA: has been seen in office since drawn 58-Rww-54798:48 CBC W/Diff, Automated Comments: Test performed at:[facility] [address] [place] [address] Absolute Lymph 1.40 {X10_3/ul} (Normal) [...] Metabolic Profil Comments: Test performed at:[facility] [address] [place], [place] [address] GAP 4 (Abnormal) Range: 5-15 CO2 28.0 [...] Lipid Profile Comments: Test performed at:[facility] [address] [place], [place] [address] VLDL 14 mg/dL (Normal) Range: 5-40 LDL [...] Hormone (TSH) Comments: Test performed at:[facility] [address] [place] [address] TSH 1.57 {uIU/mL} (Normal) Range: [...] CHOL 151 mg/dL (Normal) Comments: <200 mg/dL Slmzilgqb875-606 mg/dL Borderline>240 mg/dL High Risk :23 VZG 2963 {index} (Normal) Comments: Negative <135Equivocal 135 - 165Positive >165A positive result generally indicates exposure to thepathogen or administration of specific immunoglobulins,but it is not indicati on of active infection or stageof disease.Performed at: - [facility] [id number] Director: Bernardino Camargo PhD, Phone: [phone]; ADDENDA: normal and pt has apt tomorrow [...] CHOL 151 mg/dL (Normal) Comments: <200 mg/dL Konuwgcwc500-136 mg/dL Borderline>240 mg/dL High Risk :17 VITD [...] CHOL 127 mg/dL (Normal) Comments: <200 mg/dL Mrbdelsog988-844 mg/dL Borderline>240 mg/dL High Risk :49 CBCMD [...] CHOL 129 mg/dL (Normal) Comments: <200 mg/dL Wvoznhscx641-254 mg/dL Borderline>240 mg/dL High Risk HDL 48 [...] 250 nm ol/L)Toxicity >100 ng/mL (250 nmol/L)Effective 201225-Jun-201261-Nho-918266:32 URINE ALEX CULTURE (JASMINE Comments: PATIENT NOT FASTINGPERFORMED BY: [facility] Yhpabm5337 [facility] [id number] Information: SRC:UR [id number] COL COUNT) (29857) Result 1 CNSNSS (Normal) Comments: Coagulase negative Staphylococcus species, not Staphylococcussaprophyticus.100 Colonies/mL .Based on resistance to penicillin and susceptibility to o xacillinthis isolate would be susceptible to:* Penicillinase-stable penicillins; such as: Cloxacillin Dicloxacillin Nafcillin* Beta-lactam/beta-lactamase inhibitor combinations; such as: [place] xicillin-clavulanic acid Ampicillin-sulbactam* Antistaphylococcal cephems; such as: Cefaclor Cefuroxime* Antistaphylococcal carbapenems; such as: Imipenem Meropenem S = Susceptibl e; I = Intermediate; R = Resistant P = Positive; N = Negative MICS are expressed in micrograms per mL Antibiotic RSLT#1 RSLT#2 RSLT#3 RSLT#4 Ciprofloxacin SGentamicin SLevofloxacin SNitrofurantoin SOxacillin SPenicillin RRifampin STetracycline STrimethoprim/Sulfa SVancomycin S Urine Final report Culture,Comprehensi (Normal) ve 83-Xoo-837472:35 Urinalysis, Office (25353) UA - BILIRUBIN Negative (Normal) UA - BLOOD Hemolyzed Large (Normal) UA - GLUCOSE Negative (Normal) UA - KETONES Small mg/dL (Normal) UA - LEUKOCYTE ESTERASE Large (Normal) UA - NITRITE Negative (Normal) UA - PH 7.0 (Normal) UA - PROTEIN 100 mg/dL (Normal) UA - SPECIFIC GRAVITY 1.020 (Normal) URINE UROBILINGN JASMINE TIMED Normal mg/dL (Normal) 8-Dbb-529524:19 Urinalysis, Office (02142) UA - BILIRUBIN Negative (Normal) UA - BLOOD Hemolyzed Trace (Normal) UA - GLUCOSE Negative (Normal) UA - KETONES Negative mg/dL (Normal) UA - LEUKOCYTE ESTERASE Negative (Normal) UA - NITRITE Negative (Normal) UA - PH 7.5 (Normal) UA - PROTEIN Negative mg/dL (Normal) UA - SPECIFIC GRAVITY 1.015 (Normal) URINE UROBILINGN JASMINE TIMED Normal mg/dL (Normal) 6-Axh-031476:11 URINE ALEX CULTURE-IDENTIFICATN Comments: PATIENT NOT FASTINGPERFORMED BY: ALEJO [facility] [address] [place] [id number] Information: [id number] (94100) Result 1 NG36 (Normal) Comments: No growth [...] mg/dL Borderline >240 mg/dL High Risk :33 [facility] 0 SEEN {/hpf} (Normal) [...] (Normal) UCLAR Clear (Normal) UCOL Yellow (Normal) 3-Hbx-238885:50 RIBS UNIL 2V NO CXR Radiology Report [...] Signed:Mikhail Palencia MDNovember 2011 at 5:31:33 PM [id number] Signed TP/TP If you are the referring physician and would like to consult with theradiologist who provided this inter pretation, please contact Mikhail Palencia MD at [phone]. If this radiologist is unavailable, you will bedirected to another radiologist to assist. If you are a patient with a question regarding this re port, pleasecontactyour referring physician directly. Professional Interpretation Provided By: [employer], Phone , These documents contain legally protected [...] 04/08/12 1738 Sign by: Mikhail Palencia MD 2-Ogn-813883:01 BILAT SCRN DIGITAL & CAD Radiology Report [...] Alonso M.D.March 05, 2012 at 2:05:30 PM [id number] Signed GP/GP If you are the referring physician and would like to consult with theradiologist who provided this interpretation, please contact Stuart Wills at [phone]. If this radiologist is unavailable, youwill be directed to another radiologist to assist. If you are a patient with a question regarding this report, pleasecontactyour referring physician directly. Professional Interpretation Provided By: [employer], Phone , These documents contain legally protected [...] Alonso M.D.March 05, 2012 at 2:52:24 PM [id number] Signed GP/GP If you are the referring physici an and would like to consult with theradiologist who provided this interpretation, please contact Stuart Wills at [phone]. If this radiologist is unavailable, youwill be directed to anot her radiologist to assist. If you are a patient with a question regarding this report, pleasecontactyour referring physician directly. Professional Interpretation Provided By: [employer], Phone , These documents contain legally protected [...] on 1457 Sign by: Michael Alonso MD 77-Fvm-59206:26 CBCEM Comments: This patient requested that [facility] send to you acopy of [...] PLATELETS (Normal) Comments: [facility] to you acopy of their Yearly Employee Health Risk Assessment.A copy of this report is also given to the patient so theycan follow up with your office if they choose. 79-Acc-27500:26 EMP Comments: This patient requested that [facility] to you acopy of their [...] :26 UAEM Comments: This patient requested that [facility] send to you acopy of [...] D deficiency has been defined by the [place] of[place] and an Endocrine Society practice guideline as alevel of serum 25-OH vitamin D less than 20 ng/mL (1,2).The Endocrine Society went on to further define vitamin Dinsufficiency as a level between 21 and 29 ng/mL (2).1. IOM ([place] of Medicine). 2010. Dietary reference intakes for calcium and D. [place]: The National Academies Press.2. Paxton MF, Rojelio OSPINA, Cortney GARIBAY, et al. Evaluation, treatment, and prevention of vitamin D deficiency: an Endocrine Society clinical practice guideline. JCEM. 2010; 96(7): 1911-30.Performed at: [address] [id number] Director: Korin Harris MD, Phone: [phone] 56-Ouh-373470:34 HEPATOBILIARY IMAGING Radiology Report See Note (Normal) [...] radiologist regarding this report, please call our [id number] line @ Dictated on 05/31/11 0818 by Ehsan Vázquez DOTranscribed on 05/31/112030 by ITS IMPORTSign by Ehsan Vázquez DO on 05/31/112031 Sign by: Ehsan Vázquez DO 13-Lac-204935:54 TOE(S),MIN 2 VIEWS Radiology Report See Note [...] regarding this rep ort, please call our 58T5aqkjzzc line @ Dictated on 05/30/11 1150 by [...] of the right kidney. The right kidn olinisigww41.6 x 4.7 x 4.0 cm. Normal renal [...] 05/02/11 1224 Sign by: MAIA SHELTON MD 00-Iuj-888827:02 CBCD,SMEAR DIFF Comments: appt 05/17/11 RED CELL [...] NEGATIVE 0.06 - 0.59 AT RISK OF TN > OR = 0.60 SUGGEST TN :11 ANKLE,MIN 3 VIEWS Radiology Report See [...] 12/14/10 1005 Sign by: GISSELLE GONZALES MD 65-Xzi-71663:52 URINE ALEX CULTURE (JASMINE COL Comments: PATIENT NOT FASTINGPERFORMED BY: [facility] [id number] COUNT) (19805) Result 1 NG36 (Normal) Comments: No growth in 36 - 48 hours. Urine Culture,Comprehensive Final report (Normal) 76-Hsy-09894:07 Urinalysis, Office (96476) UA - BILIRUBIN Negative (Normal) UA - [...] CHOL 150 mg/dL (Normal) Comments: <200 mg/dL Lgocibogu462-431 mg/dL Borderline>240 mg/dL High Risk HDL 56 [...] CHOL 150 mg/dL (Normal) Comments: <200 mg/dL Lmoyhouvs843-799 mg/dL Borderline>240 mg/dL High Risk LDH 160 [...] (Normal) Comments: Result: NEGATIVE COLOR YELLOW (Normal) 88-Luq-065785:10 BILAT SCRN DIGITAL & CAD Radiology See Note Comments: Exam Number: [id number] MAMMOGRAPHY - BILATERAL SCREENING INDICATION:Routine annual screening [...] not delay biopsy of a clinicallysuspicious abnormality.ADDENDUM: [id number] HPBI/MDS MAMMOGRAPHY - BILATERAL SCREENING INDICATION:Routine annua [...] attach ing a ResultCode to this exam.ADDENDUM: [id number] HPBI/MDS Reported By: GISSELLE GONZALES M.D. 76-Qnc-735978:09 DEXA BONE DENSITY STUDY (HP) Radiology Report See Note Comments: Exam Number: [id number] CLINICAL:The patient is a 69-year-old female who is postmenopausal with pasthistory of hormone replacement therapy. History of fracture of V6ubikrj history of osteoporosis EXAMINA (Normal) TION:DUAL ENERGY X-RAY ABSORPTIOMETRY / DEXA. TECHNIQUE:Bone Density Measurements (BMD) of lumbar spine and bilateral hipswere obtained using a [employer] scanner. COMPARISON:March 24 999, October 29, 2002, [...] NIH Osteoporosis and Related Bone Diseases http://www.osteo.org2. Size Marker ational Society for Clinical Densitometryhttp://www.iscd.org3. National Osteoporosis Foundation http://www.nof.org Reported By: GISSELLE GONZALES M.D. 24-Dec-19 VIT D,25 33474 39.0 ng/mL Range: 32.0-100.0 1012:08 (Normal) Comments: Recent studies consider the lower limit of 32.0 ng/mL to isabel threshold for optimal health.Sheng BURNETT. J Nutr. 2004;135(2):317- 22.Performed at: [place] [id number]Lab Director: Korin Harris MD, Phone: [phone] 29-Oct-19 C DIF TOXIN/AG See Note Comments: [...] Crytosporidium parvum,Cyclospora, or Microsporidia.__ TESTING PERFORMED AT [facility]. ORIGINAL REPORT ONFILE IN LAB CONTAINS ADDITIONAL TEST SITE INFORMATION. OVA/ PARASITES EXAM NO OVA, CYSTS, OR PARASITES FOUND. :40 WBC,STOOL See Note (Normal) Comments: FECAL WBCs NONE SEEN 16-Osm-642332:25 ABDOMEN/PELVIS WITH CONTRAST Radiology Report See Note (Normal) Comments: Exam Number: [id number] CLINICAL:This is a 68-year-old female patient with [...] SED RATE 48 mm/h (Abnormal) Range: 0-30 41-Nsq-377056:55 URINE ALEX CULTURE (JASMINE Comments: PATIENT NOT FASTINGPERFORMED BY: [facility] Lkwpbv20[address] [facility] [id number] Information: SRC:UR [id number] COL COUNT) (91089) Result 1 NG36 (Normal) Comments: No growth in 36 - 48 hours. Urine Culture,Comprehensive Final report (Normal) 74-Job-843716:20 Urinalysis, Office (00964) UA - LEUKOCYTE ESTERASE Small (Normal) UA - NITRITE Negative (Normal) URINE UROBILINGN JASMINE TIMED 2 mg/dL (Normal) UA - PROTEIN Negative mg/dL (Normal) UA - PH 7.0 (Normal) UA - BLOOD Hemolyzed Trace (Normal) UA - SPECIFIC GRAVITY 1.015 (Normal) UA - KETONES Negative mg/dL (Normal) UA - BILIRUBIN Negative (Normal) UA - GLUCOSE Negative (Normal) 23-Uko-01747:11 BREAST UNILATERAL US (HP) Radiology Report See Note (Normal) Comments: Exam Number: [id number] CLINICAL:The patient is a 68-year-old female with [...] CHOL 147 mg/dL (Normal) Comments: <200 mg/dL Cxmbbijvh118-753 mg/dL Borderline>240 mg/dL High Risk :03 LIVER ALB 4.2 g/dL (Normal) Range: 3.4-5.0 ALK P 66 U/L (Normal) Range: 50-136 ALT 29 U/L (Normal) Range: 12-78 AST 20 U/L (Normal) Range: 15-37 D BILI 0.09 mg/dL (Normal) Range: 0.00-0.30 T BILI 0.30 mg/dL (Normal) Range: 0.00-1.00 T PROT 7.9 g/dL (Normal) Range: 6.4-8.2 :41 Urinalysis, Office (91648) UA - LEUKOCYTE ESTERASE Trace (Normal) UA [...] Report See Note (Normal) Comments: Exam Number: [id number] CLINICAL: 68-year-old female with knee pain lateral [...] a full thickness radial tear of the batter mixer helper ior horn of the medial meniscus extending [...] last examination. Reported By: John Alcocer M.D. 5-Pck-875330:24 KNEE,4 OR MORE VIEWS (MT) Radiology Report See Note (Normal) Comments: Exam Number: [id number] CLINICAL:Pain X-RAY EXAMINATION RIGHT KNEE TECHNIQUE:4 view(s) [...] change. Osteopenia. Reported By: ARIADNA PERAZA M.D. 9-Hom-311422:23 L/S SPINE,MIN 4 VIEWS (MT) Radiology Report See Note (Normal) Comments: Exam Number: [id number] CLINICAL:Low back pain, radiculopathy X-RAY EXAMINATION: LUMBAR [...] acute fracture. Reported By: ARIADNA PERAZA M.D. 4-Ecj-917526:00 EMP URINALYSIS BILIRUBIN URINE SeeNote (Normal) Comments: [...] Range: 0.2 - 1.0 COLOR YELLOW (Normal) 9-Awg-403550:00 ROUTINE UA BILIRUBIN URINE SeeNote (Normal) Comments: [...] 6.4-8.2 URIC 4.3 mg/dL (Normal) Range: 2.6-6.0 45-Ueo-02256:31 DEXA BONE DENSITY STUDY () Radiology Report See Note (Normal) Comments: Exam Number: [id number] BONE DENSITOMETRY HISTORYOsteopenia. TECHNIQUE Bone densitometry of the lumbar spine and both hips is now beingperformed. The best criteria for evaluation of osteoporosis is theT-value, which represents the comparison of the patient's bone mass leigh expected peak bone mass. For most patients, the mean T-value of I8aegbumj L4 is used to evaluate the lumbar [...] density is measured at 7.2% less than sa1415.The T-valu e of the right femoral neck is -2 which is in the range ofosteopenia.The T- value of the total right hip is -1.7 which is in the range ofosteopenia. IMPRESSIONThere is osteopenia of the lumbar spine and both hips. Reported By: GISSELLE GONZALES M.D. 04-Gtm-11979:54 BREAST UNILATERAL US () Radiology Report See Note (Normal) Comments: Exam Number: [id number] TARGETED LEFT BREAST ULTRASOUND HISTORYAbnormal mammogram. High-resolution [...] Greene's office and the office was called et9387 hours December 22, 2008. Reported By: GISSELLE GONZALES M.D. 81-Ixf-948620:35 [facility] Radiology Report See Note (Normal) Comments: Exam Number: [id number] MAMMOGRAM, UNILATERAL LEFT DIAGNOSTIC DIGITAL AND CAD [...] 1992 (MQSA). The mammograms werealso [facility] computer-aided detection software ([employer], [employer] Reported By: GISSELLE GONZALES M.D. :30 BILAT SCRN DIGITAL & CAD Radiology Report See Note (Normal) Comments: Exam Number: [id number] MAMMOGRAM, BILATERAL SCREENING DIGITAL AND CAD HISTORYRoutine [...] mammograms werealso examined with computer-aided detection software ([employer] Reported By: GISSELLE GONZALES M.D. 16-Own-787564:37 BMP BUN 15 mg/dL (Normal) Range: 7-18 [...] g/dL (Normal) Range: 6.4-8.2 :11 AT3 F/I 83492 AT3 AG, IMMUNOL 131 % (Abnormal) Range: 75-130 AT3 FUNCT 13609 131 % (Normal) Range: 75-135 :11 PROT C 141454 PROT C,[id number] 169 % (Abnormal) Range: 74-151 Comments: Performed At: [address] [id number] PROTEIN C 38595 106 % (Normal) Range: 70-140 :11 PROT S 210038 PROTEIN S, FREE 107 % (Normal) Range: 56-124 PROTEIN S, FUNC 82 % (Normal) Range: 60-145 PROTEIN S,TOTAL 137 % (Normal) Range: 58-150 :38 A-CARDIO 160579 Comments: ORDER ALSO STATES ANTIPHOSPHOLIPIDS, WHICH IS [...] mm/h (Normal) Range: 0-30 :38 FAC II 938219 Comments: ORDER ALSO STATES ANTIPHOSPHOLIPIDS, WHICH IS A SYNONYM OFANTICARDIOLIPIN FACTOR II,DNA Comment (Normal) Comments: NEGATIVENo mutation identified.Comment:A point mutation ([id number]) in the Factor II (prothrombin)gene is the [...] antithrombinIII, protein C and protein S. :38 [facility] [id number] Comments: ORDER ALSO STATES ANTIPHOSPHOLIPIDS, WHICH IS [...] , elevatedhomocysteine levels, or a Factor II/prothrombin mutation(P55822Q). Contact you r local [facility] for information [...] mg/dL VLDL 31 mg/dL (Normal) Range: 5-40 61-Pjk-228986:35 CULTURE, URINE URINE CULTURE See Note (Normal) Comments: Predominant colony type being a gram positive trevor, probableLactobacillus species. COLONY COUNT 50,000-80,000 ORGANISM 1: MIXED GRAM POSITIVE ORGANISMS 39-Ovk-440237:35 ROUTINE UA BILIRUBIN URINE SeeNote (Normal) Comments: [...] 0.2 EU/dl (Normal) Range: 0.2 - 1.0 23-Dhi-57687:48 Urinalysis, Office (48274) UA - BILIRUBIN Negative (Normal) UA - BLOOD Negative (Normal) UA - GLUCOSE Negative (Normal) UA - KETONES Negative mg/dL (Normal) UA - LEUKOCYTE ESTERASE Trace (Normal) UA - NITRITE Negative (Normal) UA - PH 6.5 (Normal) UA - PROTEIN Negative mg/dL (Normal) UA - SPECIFIC GRAVITY 1.005 (Normal) URINE UROBILINGN JASMINE TIMED 2 mg/dL (Normal) 9-Ulf-125984:04 BILAT SCRN DIGITAL & CAD Radiology Report See Note (Normal) Comments: Exam Number: [id number] MAMMOGRAM, BILATERAL SCREENING DIGITAL AND CAD HISTORYRoutine [...] werea lso examined with computer-aided detection software ([employer].). Reported By: GISSELLE GONZALES M.D. 2-Ilv-483019:41 DEXA BONE DENSITY STUDY (HP) Radiology Report See Note (Normal) Comments: Exam Number: [id number] BONE DENSITOMETRY HISTORYOsteopenia. TECHNIQUE Bone densitometry of [...] density is measured at 0.2% less than cf5879 and 0.1% more than in 2005. IMPRESSIONThere is osteopenia of the lumbar spine and left hip. Reported By: GISSELLE GONZALES M.D. 79-Jrr-23578:19 CBC, EMPLOYEE HCT 36.9 % (Abnormal) Range: [...] {mg/24_hr} (Normal) Range: 1.8-6.7 Comments: Performed At: [address] [id number] VMA,UR 3.4 mg/L (Normal) :16 ALDOST,U24 4291 Comments: 24 H URINE TV = 2580 ML ALDOSTERONE,U24 3 {ug/24_hr} (Normal) Range: 2-21 Comments: 1 mo. 1 - 11 1- 12 mos. 1 - 22 1- 16 yrs. 2 - 16 Adult Ranges Normal diet 2 - 21 Low salt 17 - 44 High salt 0 - 14Performed At: [address] [id number] ALDOSTERONE,UR 1 ug/L (Normal) 81-Vhn-925182:17 BRAIN/HEAD W/WO CONTRAST Radiology Report See Note (Normal) Comments: Exam Number: [id number] CT SCAN OF BRAIN HISTORYHeadache. Scans were [...] ethmoid sinusitis. Reported By: GISSELLE GONZALES M.D. 95-Pna-54488:51 CBC With Differential/Platelet Comments: PERFORMED BY: [facility]dikcc[facility] [id number] Baso (Absolute) 0.1 {x10E3/uL} (Normal) Range: 0.0-0.2 [...] Comp. Metabolic Panel (14) Comments: PERFORMED BY: [facility] HospitalPudqsz[address] [place] [address] [id number] A/G Ratio 1.5 (Normal) Range: 1.1-2.5 Albumin, [...] Sedimentation 4 mm/h (Normal) Comments: PERFORMED BY: [facility] HospitalXushvb4981 [facility] [id number] :51 Rate-Westergren Range: 0-30 :29 CULTURE, URINE URINE CULTURE See Note {CFU/mL} (Normal) Comments: COLONY COUNT >100,000 ORGANISM 1: ENTEROCOCCUS FAECALIS ENTEROCOCCUS FAECALIS: REACTION CIPROFLOXACIN GP $$$ <=0.5 S LEVOFLOXAC IN $$ <=1 S NITROFURANTOIN $ <=32 S PENICILLIN G (ENTEROCOCCUS) $$ 2 S TETRACYCLINE $$ <=1 S VANCOMYCIN $$ <=0.5 S 2-Uls-538781:29 ROUTINE UA BILIRUBIN URINE SeeNote (Normal) Comments: [...] tissue mass Soft tissue mass : Reviewed Neuroradiologist Letter Indication: Soft tissue mass Gastroesophageal reflux [...] EASY BRUISABILITY OF SKIN Planned Observations TSH (44064)Indication: Hypercholesterolemia On: Request URINALYSIS, W/ MICRO (29563)Indication: Essential hypertension On: Request MICROALBUMIN: CREATININE RATIO (17049) AND (41011)Indication: Essential hypertension On: : Request METABOLIC PANEL, COMPREHENSIVE (87386)Indication: Essential hypertension On: Request LIPOPROTEIN, BLD, BY NMR (00647)Indication: Hypercholesterolemia On: 85-Bzk-270135:41 Request CBC W/AUTO DIFF WBC (85794)Indication: Essential hypertension On: 19-Ldj-826154:41 Request TSH (83554)Indication: Hypercholesterolemia On: :51 Request URINALYSIS, W/ MICRO (69766)Indication: Essential hypertension On: :51 Request MICROALBUMIN: CREATININE RATIO (69005) AND (19125)Indication: Essential hypertension On: :51 Request METABOLIC PANEL, COMPREHENSIVE (92938)Indication: Essential hypertension On: :51 Request LIPID PANEL (90179)Indication: Essential hypertension On: :51 Request CBC W/AUTO DIFF WBC (86283)Indication: Essential hypertension On: :51 Request Metabolic Panel, Basic (18643)Indication: Essential hypertension On: 43-Ulx-860315:32 Request Comments: 2 weeks Vitamin D Hydroxy (18226)Indication: Osteopenia On: :23 Request URINALYSIS, W/ MICRO (78378)Indication: Essential hypertension On: :23 Request CBC W/AUTO DIFF WBC (59608)Indication: Essential hypertension On: :23 Request METABOLIC PANEL, COMPREHENSIVE (16099)Indication: Essential hypertension On: :23 Request LIPID PANEL (47881)Indication: Hypercholesterolemia On: :22 Request SED RATE ERYTHROCYTE (54584)Indication: Abdominal pain, acute, generalized On: :47 Request C-REACTIVE PROTEIN (70696)Indication: Abdominal pain, acute, generalized On: :47 Request CBC with auto diff (46489)Indication: Abdominal pain, acute, generalized On: :46 Request URINALYSIS, W/ MICRO (77613)Indication: Essential hypertension On: :27 Request LIPID PANEL (12637)Indication: Hypercholesterolemia On: :27 Request METABOLIC PANEL, COMPREHENSIVE (51045)Indication: Essential hypertension On: :26 Request VARICELLA-ZOSTER ANTBODY (88110)Indication: Hypercholesterolemia On: 95-Krn-776971:58 Request TSH (87872)Indication: Anxiety associated with depression On: :12 Request LIPID PANEL (70940)Indication: Hypercholesterolemia On: :12 Request CBC W/AUTO DIFF WBC (02812)Indication: Essential hypertension On: :12 Request METABOLIC PANEL, COMPREHENSIVE (43191)Indication: Essential hypertension On: :12 Request VARICELLA-ZOSTER ANTBODY (45724)Indication: screen On: :59 Request CBC WITH MANUAL DIFF (05154)Indication: Essential hypertension On: 46-Nhk-818522:59 Request LIPID PANEL (95790)Indication: Hypercholesterolemia On: :58 Request METABOLIC PANEL, COMPREHENSIVE (72731)Indication: Essential hypertension On: 28-Itw-555041:58 Request Vitamin D Hydroxy (17539)Indication: Osteopenia On: :33 Request METABOLIC PANEL, COMPREHENSIVE (96508)Indication: Essential hypertension On: :33 Request LIPID PANEL (29984)Indication: Hypercholesterolemia On: :33 Request METABOLIC PANEL, COMPREHENSIVE (50925)Indication: Essential hypertension On: :57 Request LIPID PANEL (80462)Indication: Hypercholesterolemia On: :56 Request Vitamin D Hydroxy (02464)Indication: Anxiety associated with depression On: 23-Ksa-431457:51 Request CBC WITH MANUAL DIFF (06893)Indication: Essential hypertension On: 52-Xmu-364690:51 Request METABOLIC PANEL, COMPREHENSIVE (21877)Indication: Essential hypertension On: 21-Xdw-563591:51 Request TSH (67586)Indication: Anxiety associated with depression On: 96-Ecu-140962:51 Request LIPID PANEL (11098)Indication: Hypercholesterolemia On: 92-Jls-970172:50 Request CBC WITH MANUAL DIFF (41792)Indication: Essential hypertension On: :30 Request METABOLIC PANEL, COMPREHENSIVE (81778)Indication: Essential hypertension On: :25 Request LIPID PANEL (24110)Indication: Hypercholesterolemia On: :25 Request URINALYSIS, W/ MICRO (84400)Indication: Essential hypertension On: 48-Ejd-782608:08 Request CBC WITH MANUAL DIFF (08240)Indication: Essential hypertension On: 55-Jsx-214658:08 Request METABOLIC PANEL, COMPREHENSIVE (16645)Indication: Essential hypertension On: 40-Yqc-964709:06 Request LIPID PANEL (11129)Indication: Hypercholesterolemia On: 78-Etc-892007:06 Request LIPID PANEL (42572)Indication: Hypercholesterolemia On: :28 Request CBC WITH MANUAL DIFF (14863)Indication: Essential hypertension On: :28 Request METABOLIC PANEL, COMPREHENSIVE (50105)Indication: Essential hypertension On: :28 Request METABOLIC PANEL, COMPREHENSIVE (54055)Indication: Essential hypertension On: :48 Request Vitamin D Hydroxy (80456)Indication: Depression On: :48 Request LIPID PANEL (37042)Indication: Hypercholesterolemia On: 90-Oeg-899076:47 Request CBC WITH MANUAL DIFF (31000)Indication: Other chest pain On: 98-Jfn-563014:19 Request METABOLIC PANEL, COMPREHENSIVE (11274)Indication: Other chest pain On: 94-Tek-714486:18 Request ASSAY, TROPONIN, QUANTITATIVE (aka Troponin I) (31163)Indication: Other chest pain On: 81-Yxn-623344:18 Request Comments: stat CALCIFEDIOL (65721)Indication: Eczema (Renamed from Dermatitis, eczematoid) On: 30-Lpz-760433:34 Request OVA & PARASITE DIR SMEAR (66941)Indication: Diarrhea (Renamed from D (diarrhea)) On: 15-Qiw-830821:11 Request LEUKOCYTE COUNT, FECAL (78614)Indication: Diarrhea (Renamed from D (diarrhea)) On: 93-Xtv-672573:10 Request C.Difficile, Stool (64739)Indication: Diarrhea (Renamed from D (diarrhea)) On: 78-Ysc-215106:10 Request ALEX CULTURE-STOOL (48829)Indication: Diarrhea (Renamed from D (diarrhea)) On: 45-Kpi-528339:10 Request SED RATE ERYTHROCYTE (76091)Indication: Abdominal pain, acute, left lower quadrant On: 75-Tpd-191366:10 Request C-REACTIVE PROTEIN (21095)Indication: Abdominal pain, acute, left lower quadrant On: 07-Vwi-605499:10 Request URINALYSIS, W/ MICRO (23976)Indication: Abdominal pain, acute, left lower quadrant On: 93-Lqx-561315:10 Request METABOLIC PANEL, COMPREHENSIVE (84853)Indication: Abdominal pain, acute, left lower quadrant On: 99-Mps-532176:10 Request CBC WITH MANUAL DIFF (92543)Indication: Abdominal pain, acute, left lower quadrant On: 98-Dma-737796:10 Request METABOLIC PANEL, COMPREHENSIVE (84474)Indication: Essential hypertension On: 34-Kyb-115088:47 Request HEPATIC FUNCTION PANEL (00957)Indication: Hypercholesterolemia On: :47 Request LIPID PANEL (90198)Indication: Hypercholesterolemia On: :47 Request Vitamin D Hydroxy (78968)Indication: Osteopenia On: :46 Request LIPID PANEL (78058)Indication: Hypercholesterolemia On: :38 Request HEPATIC FUNCTION PANEL (26534)Indication: Hypercholesterolemia On: :38 Request Metabolic Panel, Basic (46255)Indication: DISORDERS, ORGANIC, SLEEP RELATED LEG CRAMPS On: 99-Fvh-910578:17 Request URINALYSIS W/O MICRO (60041)Indication: Essential hypertension On: :48 Request TSH (44605)Indication: Essential hypertension On: :48 Request METABOLIC PANEL, COMPREHENSIVE (05780)Indication: Essential hypertension On: 7-Gzh-832804:48 Request CBC WITH MANUAL DIFF (50846)Indication: Essential hypertension On: :48 Request LIPID PANEL (48508)Indication: Hypercholesterolemia On: :48 Request CBC WITH MANUAL DIFF (91230)Indication: Anemia, unspecified On: 18-Abp-84613:51 Request LIPID PANEL (43845)Indication: Hypercholesterolemia On: :31 Request HEPATIC FUNCTION PANEL (41601)Indication: Hypercholesterolemia On: :41 Request LIPID PANEL (36019)Indication: Hypercholesterolemia On: :41 Request SED RATE ERYTHROCYTE (14705)Indication: Headache (Renamed from Cephalalgia) On: 65-Exv-13291:40 Request METABOLIC PANEL, COMPREHENSIVE (53240)Indication: Headache (Renamed from Cephalalgia) On: :39 Request CBC WITH MANUAL DIFF (37569)Indication: Headache (Renamed from Cephalalgia) On: :39 Request CBC WITH MANUAL DIFF (43606)Indication: EASY BRUISABILITY OF SKIN On: :59 Request PTT (ACTIVATED PARTIAL THROMBOPLASTIN TIME) (95517)Indication: EASY BRUISABILITY OF SKIN On: :59 Request PT (PROTHROMBIN TIME) (03696)Indication: EASY BRUISABILITY OF SKIN On: :59 Request HEPATIC FUNCTION PANEL (70893)Indication: Hypercholesterolemia On: :54 Request LIPID PANEL (69763)Indication: Hypercholesterolemia On: :54 Request Planned Encounters Medical; 2 Week FU - On: 03-May-2018 11:45 [facility] Catrina Perry DO, DO, [facility]; 4 Month FU - On: 16-Aug-2018 10:00 [facility] Catrina Perry DO, DO, Kathleen Planned Procedures CT OF NECK WITHOUT THEN WITH On: 09-Apr-2018 Intent INTRAVENOUS CONTRAST (10620)By: Comments: include thyroid Acacia Whaley CNP Ultrasound - ThyroidBy: Jovana OJEDA, On: 09-Apr-2018 Intent Acacia Wang Comments: attetion soft tissue rt side of neck Flu Vaccine (Quadrivalent) 89160Iu: On: 13-Mar-2018 Intent Ladi Max Comments: Lot #[id number]-L dltd, IMDose prefilled syringegiven by:SABINA Mclain reviewed and ABN signed FLAT PLATE (12012)By: Jovana OJEDA, On: 19-Dec-2017 Intent Acacia Wang ELECTROCARDIOGRAM, COMPLETE (ECG) On: 12-Dec-2017 Intent (60289)By: Catrina Perry DO Comments: nsr no acute chg Catrina Perry DO Bone Density StudyBy: Tessie Greene DO On: 10-May-2015 Intent A Comments: screening ADMINISTRATION OF INFLUENZA VIRUS On: 05-Feb-2015 Intent VACCINE (G0008)By: Tessie Greene DO A Flu Vaccine (Quadrivalent) 15764Nb: On: 05-Feb-2015 Intent Tessie Greene DO Comments: Lot:[id number]:09/01/15Dose:0.5mLRoute:IMSite:L DltdGiven By:MARTY signed MAMMOGRAM, SCREENING, BOTH BREAST On: 05-Feb-2015 Intent (67317)By: Tessie Greene DO Comments: reilly DEXA SCAN AXIAL SKELETON (72750)By: On: 05-Feb-2015 Intent Tessie Greene DO Comments: reilly Solu -Medrol Injection, 125 mg On: 09-Dec-2014 Intent (J2930)By: Acacia Whaley CNP Comments: lot:[id number]:route:IMdose:125MGsite: R glutGiven by: ROSANGELA Gamble MAMMOGRAM, SCREENING, BOTH BREAST On: 13-Mar-2014 Intent (36806)By: Tessie Greene DO ADMINISTRATION OF INFLUENZA VIRUS On: 13-Mar-2014 Intent VACCINE (G0008)By: Tessie Greene DO FLU VAC, SPLIT, >3 YEARS, INTRAMUSC On: 13-Mar-2014 Intent (93838)By: Tessie Greene DO Comments: lot: [id number]: 12-01-13site/route: L del/IMamt: 0.5mLVIS signed when applicableROSANGELA Villa Eprescribed prescriptions (G8553)By: On: 16-Sep-2013 Intent Tessie Greene DO Eprescribed prescriptions (G8553)By: On: 18-Mar-2013 Intent Libby Herndon FLU VAC, SPLIT, >3 YEARS, INTRAMUSC On: 20-Feb-2013 Intent (63244)By: Fallon Carranza Comments: Lot:[id number]:Dose:0.5mLRoute:IMSite:L DltdGiven By:MARTY signed IMMUNIZ ADMNIN, 1 VAC, SNGL/COMBO On: 20-Feb-2013 Intent (78612)By: Fallon Carranza MAMMOGRAM, SCREENING, BOTH BREASTS On: 31-Dec-2012 Intent (50688)By: Tessie Greene DO Eprescribed prescriptions (G8553)By: On: 11-Nov-2012 Intent Libby Herndon Eprescribed prescriptions (G8553)By: On: 23-Sep-2012 Intent Libby Herndon EKG (48624)By: Libby Herndon On: 21-Aug-2012 Intent Comments: ekg showed normal sinus rhythym, normal axis, no acute st/t wave changes Eprescribed prescriptions (G8553)By: On: 25-Jun-2012 Intent Tanya Bermudez LPN PNEUM VAC ADLT/IMUMNOSPR, SBC/INTRM On: 03-May-2012 Intent (45294)By: Tessie Greene DO Comments: Lot:[id number]:08-06-13Dose:0.5mLRoute:IMSite:L armGiven By:AGA ADMINISTRATION OF PNEUMOCOCCAL On: 03-May-2012 Intent VACCINE (G0009)By: Tessie Greene DO Eprescribed prescriptions (G8553)By: On: 03-May-2012 Intent Libby Herndon Nqlgwrwcv-Fyo-Fzikl (69641)By: Jovana On: 08-Apr-2012 Intent Acacia OJEDA DXA, BONE DENSITY, AXIAL SKELETON On: 30-Jan-2012 Intent (26450)By: Tessie Greene DO MAMMOGRAM, SCREENING, BOTH BREASTS On: 30-Jan-2012 Intent (51070)By: Tessie Greene DO IMMUNIZ ADMNIN, 1 VAC, SNGL/COMBO On: 30-Jan-2012 Intent (49201)By: Megan Phillips LPN Comments: Lot/Exp: [id number], 11/2011Given in L Dltd, IMPrefilled SyringeBy ROEL Guzman FLU VAC, SPLIT, >3 YEARS, INTRAMUSC On: 30-Jan-2012 Intent (01535)By: Megan Phillips LPN Breast Screening - BilateralBy: [...] DO, Tessie A On: 01-May-2011 Intent EKG (85084)By: Libby Herndon On: 01-May-2011 Intent Comments: ekg showed normal sinus rhythym, normal axis, no acute st/t wave changes poor r wave progression unchanged TDAP VACCINE >7 IM ([id number])By: On: 01-May-2011 Intent Libby Herndon Comments: work FLU VAC, SPLIT, >3 YEARS, INTRAMUSC On: 01-May-2011 Intent ([id number])By: Libby Herndon Comments: work DXA, BONE DENSITY, AXIAL SKELETON On: 09-Feb-2011 Intent ([id number])By: Monserrat Granado LPN MAMMOGRAM, SCREENING, BOTH BREASTS On: 09-Feb-2011 Intent ([id number])By: Monserrat Granado LPN Radiology - Ankle - LeftBy: Ciesa On: 14-Dec-2010 Intent RUSTY Acacia Wang Comments: call wet read to Acacia Whaley Eprescribed prescriptions ([id number])By: On: 15-Nov-2010 Intent Jc DO Tessie A CT - Abdomen & PelvisBy: Jc DO, On: 26-Oct-2009 Intent Tessie A Comments: tomorrow call wet read EKG ([id number])By: Libby Herndon On: 30-Aug-2009 Intent Comments: do [...] DO, On: 07-Jun-2007 Intent Tessie A EKG ([id number])By: Jc BROUSSARD Tessie A On: 28-Apr-2007 Intent Comments: ordered to be done at the hospital CT - Brain/HeadBy: Tessie Greene DO On: 20-Mar-2007 Intent Comments: with and without contrast- please do stat and call wet read IMMUNIZ ADMNIN, 1 VAC, SNGL/COMBO On: 04-Apr-2006 Intent ([id number])By: Libby Herndon PNEUM VAC ADLT/IMUMNOSPR, SBC/INTRM On: 04-Apr-2006 Intent ([id number])By: Libby Herndon Comments: Lot #:Expiration date:Amount given:Route: IMSite given:LEFT DELTOIDGiven by: JESSICA Weinberg IMMUNIZ ADMNIN, 1 VAC, SNGL/COMBO On: 04-Apr-2006 Intent ([id number])By: Tessie Greene DO PNEUM VAC ADLT/IMUMNOSPR, SBC/INTRM On: 04-Apr-2006 Intent ([id number])By: Tessie Greene DO Planned Medications INJECTION, METHYLPREDNISOLONE [...] The patient does have durable power of tax attorney and living will. The patient has [...] The patient does have durable power of tax attorney and living will. The patient has noticed nothing from the geriatic depre ssion scale. Other providers contributing to the patient's care are other: (hearing and eye drLatrell herrera and Dr. Zamora). Note for Annual Medicare Exam: NO labwork done for today and pt had her well woman exam done with CLINIC SPECIALIST.-weight down trying - her bp up little [...] she hasnt needed too- more active in protestant and that has h elped- no gerd [...] effective than benicar- she said mood in [facility] is reasonable- doesnt want to change- [...] to get back on track and joining [employer] at [employer]- her mood is pretty good and brother [...] g to weight watchers- still struggling with [facility] [facility]- retiring in may - had labs [...] with welbutrin more energy and seeing the calibration technician-- no issues withthe crestor- wever since [...] for chronic medical issues: her brother in [facility] and got a pressure sore- [...] df's recieved documents from Dr[facility] Nichole at [facility] Note for Follow up, Laboratory Test [...] peumovax- needs florina bloodwork- gettting back on [email or web address], [ADDITIONAL REASON] Follow up for chronic [...] in the past ,difficulty sleeping ,drug abuse ,spanish interpreter awakening ,episodes of spontaneous crying ,e xcessive [...] [facility] End: 17-Jan-2006 16:04 Payers Medicare[facility]/Supplement Ame lopez guarantor
--- OUTSIDE RECORDS SUMMARY | 2018-08-24 15:45 | XMS RPT_ITS | Continuity of Care Document ---
:1940 External Reference #:[id number] Author Organization [facility] Address [address] [place] [address] Phone Care Team Providers Name Role Phone Catrina Perry DO Unavailable Ricardo Rollins MD Unavailable Dr. Addison Kimball Unavailable Poly Bunn Unavailable Duke PLASCENCIA, Dr. Janes Dougherty Unavailable Winter, Ladi Unavailable Unavailable Sadia Goel Unavailable Unavailable Libby Herndon Unavailable Unavailable Fallon Carranza Unavailable Unavailable Limousine Driver, System Unavailable Unavailable Carolin Garber LPN Unavailable [...] 1 qd (20 MG) Active CITRACAL MAXIMUM, [id number] (Oral Tablet) 1 tab bid (315-250 MG-UNIT) [...] for 0 days Refills: 0 Ordered:31-Dec-2017 Slarb ORNAMENTAL PLASTERER HELPER, AngelaActive Omeprazole 20 MG Oral Capsule Delayed [...] Name Dates Details Bactrim *ANTI-INFECTIVE AGENTS - [facility] [place] Status: Active (Allergy) Comments: nausea Allergy to [...] WITH Contrast Result: Comments: See Note; NOTES: [facility] Imaging Services [address] [place] [address] Soft Tissue Neck WITH Contrast MR#: [id number] Acct: [id number] Name: HERMAN LEONARD Rep #: [id number] : 1940 F 77 From: Michael Alonso MD PCP: Catrina Perry DO Status: REG CLI Study: Soft Tissue Neck WITH Contrast Date of Exam: 04/10/18 Exam# [id number] Ordering Dr: Acacia Whaley STUDY: CT SOFT [...] FINDINGS: Normal bilateral parotid glands. Normal bilateral tube bender spaces. Normal bilateral parapharyngeal spaces. Normal bilateral [...] Alonso MD 04/10 at 15:37 EST Tel [phone], Service support , CC: Acacia Whaley NP; Catrina Perry DO Senior Java Web Developer: Signed 10-Apr-2018 Soft Tissue Neck WITH Contrast Result: Comments: See Note; NOTES: [facility] Imaging Services [address] [place] [address] Soft Tissue Neck WITH Contrast MR#: [id number] Acct: [id number] Name: HERMAN LEONARD Rep #: [id number] : 1940 F 77 From: Michael Alonso MD PCP: Catrina Perry DO Status: REG CLI Study: Soft Tissue Neck WITH Contrast Date of Exam: 04/10/18 Exam# [id number] Ordering Dr: Acacia Whaley P-C ADDENDUM by [...] Michael Alonso MD at 8:47 EST Tel [phone], Service support , 04/11/18 0847 Date cc : Acacia Whaley NP; Catrina Perry DO * Signed ADDENDUM by Michael Alonso MD on 04/11/[address]/Soft Tissue Neck WITH Contrast 04/11/18 0854 Date cc: Acacia Arenasmikayla PHYSICAL EDUCATION TEACHER; Catrina Perry DO * Signed STUDY: CT [...] FINDINGS: Normal bilateral parotid glands. Normal bilateral tube bender spaces. Normal bilateral parapharyngeal spaces. Normal bilateral [...] Michael Alonso MD at 15:37 EST Tel [phone], Service support , CC: Acacia Whaley NP; Catrina Perry DO Senior Java Web Developer: Signed 09-Apr-2018 Thyroid Result: Comments: See Note; NOTES: [facility] Imaging Services [address] [place] [address] Thyroid MR#: [id number] Acct: [id number] Name: HERMAN LEONARD Rep #: [id number] : [birth year] F 77 From: Michael Alonso MD PCP: Catrina Perry DO Status: REG CLI Study: Thyroid Date of Exam: 04/09/18 Exam# [id number] Ordering Dr: Acacia Whaley PHYSICAL EDUCATION TEACHER-C STUDY: THYROID ULTRASOUND REASON FOR EX AM: [...] Alonso MD at 15:[address] Tel [phone], Service support , CC: Acacia Whaley PHYSICAL EDUCATION TEACHER; Catrina Peryr DO Senior Java Web Developer: Signed 19-Dec-2017 Abdomen Single View Result: Comments: See Note; NOTES: [facility] Imaging Services [address] [place] [address] Abdomen Single View MR#: [id number] Acct: [id number] Name: HERMAN LEONARD Rep #: [id number] OB: 1940 F 76 From: Chris Rachel MD PCP: Catrina Perry DO Status: REG CLI Study: Abdomen Single View Date of Exam: 12/19/17 Exam# [id number] Ordering Dr: Acacia Whaley STUDY: X-RAY - [...] , Service support , CC: Acacia Whaley PHYSICAL EDUCATION TEACHER; Catrina Perry DO Senior Java Web Developer: Signed 20-May-2015 Dexa Bone Density Study (HP) Result: Comments: See Note; NOTES: [facility] Imaging Services [address] [place] [address] Verdana 4d Dexa Bone Density Study (HP) MR#: [id number] Acct: [id number] Name : HERMAN LEONARD Rep #: [id number] : 1940 F 74 From: Michael Alonso MD PCP: Tessie Greene DO Status: [facility] Study: Dexa Bone Density Study (HP) Date of Exam: 05/20/15 Exam# [id number] Radhai ng Dr: Tessie Greene DO STUDY: [...] Michael Alonso MD at 10:30 EST Tel [phone], Service support [phone], CC: Jailyn Yang MD; Tessie Greene DO Senior Java Web Developer: Signed 06-Apr-2015 Bilat Scrn Digital AND CAD Result: Comments: See Note; NOTES: [facility] Imaging Services [address] [place] [address] Verdana 4d Bilat Scrn Digital AND CAD MR#: [id number] Acct: [id number] Name: HERMAN LEONARD Rep #: [id number] : 1940 F 74 From: Michael Alonso MD PCP: Tessie Greene DO Status: REG CLI Study: Db Viverosn Digital AND CAD Date of Exam: 04/06/15 Exam# [id number] Ordering D r: Tessie Greene DO MAMMOGRAPHY [...] Michael Alonso MD at 7:54 EST Tel [phone], Service support [phone], CC: Tessie Greene DO Senior Java Web Developer: Signed 05-Feb-2015 EKG (80443) Comments: ekg showed normal sinus rhythym, normal axis, no acute st/t wave changes Result: [MEASUREMENTS ANALYSIS] Date of Test: 02/05/2015 09:47:50; Heart Rate: 58; NM Interval: 156; QRS: 93; QT Interval: 420; Corrected QT Interval (QTc): 417; P Wave Blaine: 31; QRS Wave Blaine: 31; T Wave Blaine: 44; Blood Pressure: 122/84 [ECG DIAGNOSTIC STATEMENTS] Date of Test: 02/05/2015 09:47:50; Summary: Sinus Bradycardia WITHIN NORMAL LIMITS 27-Mar-2014 Bilat Scrn Digital & CAD Result: Comments: See Note; NOTES: [facility] Imaging Services [address] [place] [address] Breast Imaging Report MR#: [id number] Acct: [id number] Name: HERMAN LEONARD Rep #: [id number] : 1940 F 73 From: Micahel Alonso MD PCP: Tessie Greene DO Status: REG CLI Exam# [id number] Ordering Dr: Tessie Greene DO MAMMOGRAPHY - [...] Michael Alonso MD at 9:36 EDT Tel [phone], Service support [phone], CC: Tessie Greene DO Senior Java Web Developer: Signed 26-Mar-2013 Bilat Scrn Digital & CAD Result: Comments: See Note; NOTES: [facility] Imaging Services [address] [place] [address] Breast Imaging Report MR#: [id number] Acct: [id number] Name: HERMAN LEONARD Rep #: [id number] : 1940 F 72 From: Michael Alonso MD PCP: Tessie Greene DO Status: REG CLI Exam# [id number] Ordering Dr: Tessie Greene DO MAMMOGRAPHY - [...] March 26, 2013 at 2:33:33 PM EDT [phone] Electronically Signed GP/GP If you are the referring physician and would like to consult with the radiologist who pr ovided this interpretation, please contact Michael Alonso M.D. at [phone]. If this radiologist is unavailable, you will be directed to another radiologist to assist. If you are a patient w ith a question regarding this report, please contact your referring physician directly. Professional Interpretation Provided By: Xiam, Phone , These documents contain legally protected [...] of these documents. CC: Tessie Greene DO Senior Java Web Developer: Signed Immunization Name Dates Details Pneumococcal (2 years and up) on: 04-Apr-2006 Pneumococcal (2 years and up) on: 04-Apr-2006 Comments: Lot #:Expiration date:Amount given:Route: IMSite given:LEFT DELTOIDGiven by: JESSICA Weinberg Family History Unknown Family Member Name Dates Details Father Comments: [place] Status: Active Mother Comments: CHF Status: Active Paternal Grandmother Comments: ABD CA Status: Active Social History Name Dates Details Alcohol Use Comments: Occasional alcohol use Status: Active Non Smoker/No Tobacco Use Status: Active Tobacco use: Never smoker. Status: Active Smoking Status Name Dates Details Never smoker Vital Signs Date Test Result Details 30-Szn-012038:44 Temperature 97.3 f Comments: Method: Temporal Pulse [...] kg/m2 Body Surface Area Calculated 1.58 m2 86-Kim-468345:20 Comments: 140/82 recheck bp Pulse 65 /min [...] 0.00 cm Results Date Description Value Details 82-Poa-12795:00 ASP DONE IN LAB See Note (Normal) Comments: [facility] [address] [place], [address] Comments: Patient: HERMAN LEONARD : 1940 (77/) Acct Num: [id number] Phys: Ria PLASCENCIA,Bohannon Unit Num: [id number] Loc: LAB Specimen: [id number] Received: 04/17/18 - [...] Submitted for cytology study. TC: 5 CPT: 84953, 133539, 90935 , 70639 CYTOLOGY STUDY Slides are reviewed. DIAGNOSIS CYTOLOGY Fine needle aspiration, right neck mass (smear, cell block): Negative for malignant cells. See comment. AM:sp 04/18/18 HEADER OPERATION: FNA, right neck mass PRE-OP DIAGNOSIS: Right neck mass TISSUE SUBMITTED: Right neck mass Signed Janes Arellano 11/15/18 <signature on file> 6-Hme-429868:47 CREATININE FINGERSTICK Comments: [facility] Laboratory[facility] [address] [place] [address] EGFR WB > 60.0000 mL/min (Normal) CREATININE WB 0.8 mg/dL (Normal) Range: 0.55-1.02 :40 Bilirubin, Direct Comments: Order Date: 03/13/17Order Info: 0788- 1 - *Hepatic Function PanelOrder Info: 39262-6 - *Lipid Profile CC PCPComments: 12 hours fasting, may have water.DR PÉREZ ORDERED LIPID/LIVERDR VICKY ORDERED TS H/CBCD/LIPID/CMP/UA/[facility] [address] [place], [address] D BILI 0.11 mg/dL (Normal) Range: 0.00-0.30 :40 CBC W/Diff, Automated Comments: DR PÉREZ ORDERED LIPID/LIVERDR PERRY ORDERED TSH/CBCD/LIPID/CMP/UA/[facility] [address] [place], [address] SMEAR COMMENT SCANNED (Normal) Absolute [...] 4.2-5.4 WBC 5.8 K/mm3 (Normal) Range: 4.4-11.0 72-Wow-37889:40 [facility] Met[facility] Comments: Order Date: 03/13/17Order Info: 0788-1 - *Hepatic Function PanelOrder Info: 73154-4 - *Lipid Profile CC PCPComments: 12 hours fasting, may have water.DR PÉREZ ORDERED LIPID/LIVERDR VICKY ORDERED TS Profil H/CBCD/LIPID/CMP/UA/[facility] [address] [place], [address] GAP 5 (Normal) Range: 5-15 CO2 32.0 [...] Comments: Please note revised GLUCOSE reference range pyvzednnv61/02/2018. 56-Nrd-78604:40 Lipid Profile Comments: Order Date: 03/13/17Order Info: 0788-1 - *Hepatic Function PanelOrder Info: 18763-2 - *Lipid Profile CC PCPComments: 12 hours fasting, may have water.DR PÉREZ ORDERED LIPID/LIVERDR PERRY ORDERED TS H/CBCD/LIPID/CMP/UA/[facility] [address] [place], [address] VLDL 11 mg/dL (Normal) Range: [...] Comments: DR PÉREZ ORDERED LIPID/LIVERDR VICKY ORDERED TSH/CBCD/LIPID/CMP/UA/[facility] [address] [place], [address] Ratio,Random UR MALB:CREAT 9.7 {mg/g_CRE} (Normal) MICROALBUMIN,UR 5.3 mg/L (Normal) UR CREAT 55.10 mg/dL (Normal) :40 Thyroid Stim Hormone Comments: Order Date: 03/13/17Order Info: 0788-1 - *Hepatic Function PanelOrder Info: 22708-3 - *Lipid Profile CC PCPComments: 12 hours fasting, may have water.DR PÉREZ ORDERED LIPID/LIVERDR VICKY ORDERED TS (TSH) H/CBCD/LIPID/CMP/UA/[facility] [address], [address] TSH 1.84 {uIU/mL} (Normal) Range: 0.358-3.74 :40 Urinalysis, Complete Comments: DR PÉREZ ORDERED LIPID/JUNIOR PERRY ORDERED TSH/CBCD/LIPID/CMP/UA/MIACREHow was Urine Obtained? CLEAN [facility] [address] [place], [address] MUCUS, URINE 0 SEEN {/hpf} [...] (Normal) CLARITY Clear (Normal) COLOR Yellow (Normal) 45-Cnk-608509:44 URINE ALEX CULTURE-IDENTIFICATN Comments: PATIENT NOT FASTINGPERFORMED BY: [facility] Szgoed9199 [facility] [id number] Information: [id number] (36148) Result 1 CNSNSS (Abnormal) Comments: Coagulase negative [...] S Urine Final report Culture,Compreh (Abnormal) ensive 83-Zyy-254454:10 Urinalysis, Office (91514) UA - LEUKOCYTE ESTERASE Small (Normal) UA - NITRITE Negative (Normal) URINE UROBILINGN JASMINE TIMED Normal mg/dL (Normal) UA - PROTEIN Negative mg/dL (Normal) UA - PH 7 (Normal) UA - BLOOD non-hemolyzed trace (Normal) UA - SPECIFIC GRAVITY 1.015 (Normal) UA - KETONES Negative mg/dL (Normal) UA - BILIRUBIN Negative (Normal) UA - GLUCOSE Negative (Normal) 39-Bvi-061476:16 Basic Metabolic Profile (BMP) Comments: [facility] [address] [facility] [address]. [place], [place], [id number] ; will review at appt GAP 6 [...] 7-18 GLU 87 mg/dL (Normal) Range: 70-110 84-Bfl-122359:25 URINE ALEX CULTURE (JASMINE Comments: PATIENT NOT FASTINGPERFORMED BY: [place] 0623170 [facility] [id number] Information: SRC:[facility] D21843 COL COUNT) (98312) Result 1 NG36 (Normal) Comments: No growth in 36 - 48 hours. Urine Culture,Comprehensive Final report (Normal) 14-Jfy-145267:44 Urinalysis, Office (90195) UA - LEUKOCYTE ESTERASE Negative (Normal) UA - NITRITE Negative (Normal) URINE UROBILINGN JASMINE TIMED Normal mg/dL (Normal) UA - PROTEIN Negative mg/dL (Normal) UA - PH 6.5 (Normal) UA - BLOOD Hemolyzed Trace (Normal) UA - SPECIFIC GRAVITY 1.010 (Normal) UA - KETONES Negative mg/dL (Normal) UA - BILIRUBIN Negative (Normal) UA - GLUCOSE Negative (Normal) 83-Cct-291821:10 URINE ALEX CULTURE (JASMINE Comments: PATIENT NOT FASTINGPERFORMED BY: [facility]3]Lwuxnu9246 [facility] [id number] Information: SRC:[facility] I62906 COL COUNT) (41644) Antimicrobial MIHEAD (Normal) Comments: S = Susceptible; [...] mL (Abnormal) Urine Final report Culture,Comprehensive (Abnormal) 05-Mgs-529216:24 Urinalysis, Office (69042) UA - LEUKOCYTE ESTERASE Small (Normal) UA [...] 02-Feb-20157:28 Comprehensive Metabolic Profil Comments: Test performed at:[facility] [address] [facility]. [place], [place] [address] GAP 6 (Normal) Range: 5-15 CO2 29.0 [...] Comments: Please note revised CREATININE reference range lecmwvlme55/22/2015. BUN 21 mg/dL (Abnormal) Range: 7-18 GLU 85 mg/dL (Normal) Range: 70-110 :28 Lipid Profile Comments: Test performed at:[facility] [address] [place] [address] ; non-emergent till apt VLDL [...] 200-240 mg/dL Borderline >240 mg/dL High Risk 77-Rjz-72468:35 CBC W/Diff, Automated Comments: Test performed at:[facility] [address] [place] [address] ; non- emergent till apt [...] Range: 4.4-11.0 :35 CRP Comments: Test performed at:[facility] [address] [place] [address] C-REACTIVE PROT 38.60 mg/L (Abnormal) Range: 0.0-3.0 Comments: C-Reactive Protein (CRP) provides useful information for thediagnosis, therapy and monitoring of inflammatory processesand associated diseases. For the evaluation of Relative Riskfor Cardiovascular Dise ase, a High Sensitivity CRP (HSCRP)should be ordered. :35 Culture, Urine Comments: Test performed at:[facility] [address] [place] [address] CUUR See Note (Normal) Comments: Urine CultureCulture exhibits no growth. :35 Erythrocyte Sed Rate Comments: Test performed at:[facility] [address] [place] [address] SED RATE 24 mm/h (Normal) Range: 0-30 62-Ouu-495951:11 URINE ALEX CULTURE-JASMINE COL Comments: PATIENT NOT FASTINGPERFORMED BY: [facility] Icuyyl2578 [facility] [id number] Information: SRC:UR T53113 COUNT (08790) Result 1 NG36 (Normal) Comments: No growth in 36 - 48 hours. Urine Culture,Comprehensive Final report (Normal) 21-Qmv-919113:11 Urinalysis, Office (09099) UA - LEUKOCYTE ESTERASE Small (Normal) UA - NITRITE Negative (Normal) URINE UROBILINGN JASMINE TIMED Normal mg/dL (Normal) UA - PROTEIN Trace mg/dL (Normal) UA - PH 6 (Abnormal) UA - BLOOD non-hemolyzed trace (Normal) UA - SPECIFIC GRAVITY 1.020 (Normal) UA - KETONES Negative mg/dL (Normal) UA - BILIRUBIN Negative (Normal) UA - GLUCOSE Negative (Normal) 75-Ukd-820469:57 V-Zoster IgG (Immunity) Comments: Test performed at:[facility] [address] [place], [place] [address] VZOST IgG [address] 1894 {index} (Normal) Comments: Negative <135 Equivocal 135 - 165 Positive >165A positive result generally indicates exposure to thepathogen or adm inistration of specific immunoglobulins,but it is not indication of active infection or stageof disease.Performed at: [facility] [id number] Director: Bernardino grady PhD, Phone: [phone]; ADDENDA: has been seen in office since drawn 85-Gln-11553:48 CBC W/Diff, Automated Comments: Test performed at:[facility] [address] [place] [address] Absolute Lymph 1.40 {X10_3/ul} (Normal) [...] :48 Comprehensive Metabolic Profil Comments: Test performed at:[facility] [address] [place], [place] [address] GAP 4 (Abnormal) Range: 5-15 CO2 28.0 [...] 70-110 :48 Lipid Profile Comments: Test performed at:[facility] [address] [place], [place] [address] VLDL 14 mg/dL (Normal) Range: 5-40 LDL [...] Thyroid Stim Hormone (TSH) Comments: Test performed at:[facility] [address] [place] [address] TSH 1.57 {uIU/mL} (Normal) Range: [...] CHOL 151 mg/dL (Normal) Comments: <200 mg/dL Eyciujdsc009-057 mg/dL Borderline>240 mg/dL High Risk :23 VZG 2963 {index} (Normal) Comments: Negative <135Equivocal 135 - 165Positive >165A positive result generally indicates exposure to thepathogen or administration of specific immunoglobulins,but it is not indicati on of active infection or stageof disease.Performed at: - [address] [id number] Director: Bernardino Camargo PhD, Phone: [phone]; ADDENDA: normal and pt has apt tomorrow [...] CHOL 151 mg/dL (Normal) Comments: <200 mg/dL Egwkxukxp571-903 mg/dL Borderline>240 mg/dL High Risk :17 VITD [...] CHOL 127 mg/dL (Normal) Comments: <200 mg/dL Moeolrqsq929-273 mg/dL Borderline>240 mg/dL High Risk :49 CBCMD [...] CHOL 129 mg/dL (Normal) Comments: <200 mg/dL Vwihtcjnm303-313 mg/dL Borderline>240 mg/dL High Risk HDL 48 [...] 250 nm ol/L)Toxicity >100 ng/mL (250 nmol/L)Effective 201225-Jun-201257-Let-846467:32 URINE ALEX CULTURE (JASMINE Comments: PATIENT NOT FASTINGPERFORMED BY: [facility] Jnjdxs2735 [facility] [id number] Information: SRC:UR P14412 COL COUNT) (64003) Result 1 CNSNSS (Normal) Comments: Coagulase negative Staphylococcus species, not Staphylococcussaprophyticus.100 Colonies/mL .Based on resistance to penicillin and susceptibility to o xacillinthis isolate would be susceptible to:* Penicillinase-stable penicillins; such as: Cloxacillin Dicloxacillin Nafcillin* Beta-lactam/beta-lactamase inhibitor combinations; such as: [place] xicillin-clavulanic acid Ampicillin-sulbactam* Antistaphylococcal cephems; such as: Cefaclor Cefuroxime* Antistaphylococcal carbapenems; such as: Imipenem Meropenem S = Susceptibl e; I = Intermediate; R = Resistant P = Positive; N = Negative MICS are expressed in micrograms per mL Antibiotic RSLT#1 RSLT#2 RSLT#3 RSLT#4 Ciprofloxacin SGentamicin SLevofloxacin SNitrofurantoin SOxacillin SPenicillin RRifampin STetracycline STrimethoprim/Sulfa SVancomycin S Urine Final report Culture,Comprehensi (Normal) ve 45-Pst-585039:35 Urinalysis, Office (09038) UA - BILIRUBIN Negative (Normal) UA - BLOOD Hemolyzed Large (Normal) UA - GLUCOSE Negative (Normal) UA - KETONES Small mg/dL (Normal) UA - LEUKOCYTE ESTERASE Large (Normal) UA - NITRITE Negative (Normal) UA - PH 7.0 (Normal) UA - PROTEIN 100 mg/dL (Normal) UA - SPECIFIC GRAVITY 1.020 (Normal) URINE UROBILINGN JASMINE TIMED Normal mg/dL (Normal) 0-Vrm-431409:19 Urinalysis, Office (79904) UA - BILIRUBIN Negative (Normal) UA - BLOOD Hemolyzed Trace (Normal) UA - GLUCOSE Negative (Normal) UA - KETONES Negative mg/dL (Normal) UA - LEUKOCYTE ESTERASE Negative (Normal) UA - NITRITE Negative (Normal) UA - PH 7.5 (Normal) UA - PROTEIN Negative mg/dL (Normal) UA - SPECIFIC GRAVITY 1.015 (Normal) URINE UROBILINGN JASMINE TIMED Normal mg/dL (Normal) 4-Xoo-531560:11 URINE ALEX CULTURE-IDENTIFICATN Comments: PATIENT NOT FASTINGPERFORMED BY: ALEJO [facility] [address] [place] [id number] Information: [id number] (83170) Result 1 NG36 (Normal) Comments: No growth [...] mg/dL Borderline >240 mg/dL High Risk :33 [facility] UMUC 0 SEEN {/hpf} (Normal) UBAC [...] (Normal) UCLAR Clear (Normal) UCOL Yellow (Normal) 0-Jpt-452120:50 RIBS UNIL 2V NO CXR Radiology Report [...] Signed:Mikhail Palencia MDNovember 2011 at 5:31:33 PM [id number] Signed TP/TP If you are the referring physician and would like to consult with theradiologist who provided this inter pretation, please contact Mikhail Palencia MD at [phone]. If this radiologist is unavailable, you will bedirected to another radiologist to assist. If you are a patient with a question regarding this re port, pleasecontactyour referring physician directly. Professional Interpretation Provided By: Xiam, Phone , These documents contain legally protected [...] 04/08/12 1738 Sign by: Mikhail Palencia MD 1-Mbo-263516:01 BILAT SCRN DIGITAL & CAD Radiology Report [...] Alonso M.D.March 05, 2012 at 2:05:30 PM [id number] Signed GP/GP If you are the referring physician and would like to consult with theradiologist who provided this interpretation, please contact Stuart Wills at [phone]. If this radiologist is unavailable, youwill be directed to another radiologist to assist. If you are a patient with a question regarding this report, pleasecontactyour referring physician directly. Professional Interpretation Provided By: Xiam, Phone , These documents contain legally protected [...] Alonso M.D.March 05, 2012 at 2:52:24 PM [id number] Signed GP/GP If you are the referring physici an and would like to consult with theradiologist who provided this interpretation, please contact Stuart Wills at [phone]. If this radiologist is unavailable, youwill be directed to anot her radiologist to assist. If you are a patient with a question regarding this report, pleasecontactyour referring physician directly. Professional Interpretation Provided By: Xiam, Phone , These documents contain legally protected [...] on 1457 Sign by: Michael Alonso MD 64-Eem-39197:26 CBCEM Comments: This patient requested that [facility] send to you acopy of [...] PLATELETS (Normal) Comments: [facility] ac[facility] of their Yearly Employee Health Risk Assessment.A copy of this report is also given to the patient so theycan follow up with your office if they choose. 55-Wxb-91121:26 EMP Comments: This patient requested that [facility] send to you acopy of their [...] :26 UAEM Comments: This patient requested that [facility] send to you acopy of [...] D deficiency has been defined by the [place] of[place]icine and an Endocrine Society practice guideline as alevel of serum 25-OH vitamin D less than 20 ng/mL (1,2).The Endocrine Society went on to further define vitamin Dinsufficiency as a level between 21 and 29 ng/mL (2).1. IOM ([place] of Medicine). 2010. Dietary reference intakes for calcium and D. [place]: The National Academies Press.2. Paxton MF, Rojelio OSPINA, Cortney GARIBAY, et al. Evaluation, treatment, and prevention of vitamin D deficiency: an Endocrine Society clinical practice guideline. JCEM. 2010; 96(7): 1911-30.Performed at: [address] [id number] Director: Korin Harris MD, Phone: [phone] 83-Eqo-481929:34 HEPATOBILIARY IMAGING Radiology Report See Note (Normal) [...] radiologist regarding this report, please call our 33T1xdfoeix line @ Dictated on 05/31/11 0818 by Ehsan Vázquez DOTranscribed on 05/31/112030 by ITS IMPORTSign by Ehsan Vázquez DO on 05/31/112031 Sign by: Ehsan Vázquez DO 72-Cip-737847:54 TOE(S),MIN 2 VIEWS Radiology Report See Note [...] regarding this rep ort, please call our 58P2wmkvyvo line @ Dictated on 05/30/11 1150 by [...] of the right kidney. The right kidn bzrfjgznhe15.6 x 4.7 x 4.0 cm. Normal renal [...] 05/02/11 1224 Sign by: MAIA SHELTON MD 63-Uum-973441:02 CBCD,SMEAR DIFF Comments: appt 05/17/11 RED CELL [...] NEGATIVE 0.06 - 0.59 AT RISK OF VT > OR = 0.60 SUGGEST VT :11 ANKLE,MIN 3 VIEWS Radiology Report See [...] 12/14/10 1005 Sign by: GISSELLE GONZALES MD 77-Vzy-23854:52 URINE ALEX CULTURE (JASMINE COL Comments: PATIENT NOT FASTINGPERFORMED BY: [facility] [id number] COUNT) (05001) Result 1 NG36 (Normal) Comments: No growth in 36 - 48 hours. Urine Culture,Comprehensive Final report (Normal) 52-Zyj-69461:07 Urinalysis, Office (28529) UA - BILIRUBIN Negative (Normal) UA - [...] CHOL 150 mg/dL (Normal) Comments: <200 mg/dL Zqhcnknpn662-462 mg/dL Borderline>240 mg/dL High Risk HDL 56 [...] CHOL 150 mg/dL (Normal) Comments: <200 mg/dL Hrsaffhtg387-583 mg/dL Borderline>240 mg/dL High Risk LDH 160 [...] (Normal) Comments: Result: NEGATIVE COLOR YELLOW (Normal) 92-Riz-311223:10 BILAT SCRN DIGITAL & CAD Radiology See Note Comments: Exam Number: [id number] MAMMOGRAPHY - BILATERAL SCREENING INDICATION:Routine annual screening [...] not delay biopsy of a clinicallysuspicious abnormality.ADDENDUM: [id number] HPBI/MDS MAMMOGRAPHY - BILATERAL SCREENING INDICATION:Routine annua [...] attach ing a ResultCode to this exam.ADDENDUM: [id number] HPBI/MDS Reported By: GISSELLE GONZALES M.D. 47-Kee-625743:09 DEXA BONE DENSITY STUDY (HP) Radiology Report See Note Comments: Exam Number: [id number] CLINICAL:The patient is a 69-year-old female who is postmenopausal with pasthistory of hormone replacement therapy. History of fracture of T0kdtwbh history of osteoporosis EXAMINA (Normal) TION:DUAL ENERGY X-RAY ABSORPTIOMETRY / DEXA. TECHNIQUE:Bone Density Measurements (BMD) of lumbar spine and bilateral hipswere obtained using a [employer] scanner. COMPARISON:March 24 999, October 29, 2002, [...] NIH Osteoporosis and Related Bone Diseases http://www.osteo.org2. Meat Stringer ational Society for Clinical Densitometryhttp://www.iscd.org3. National Osteoporosis Foundation http://www.nof.org Reported By: GISSELLE GONZALES M.D. 24-Dec-19 VIT D,25 28158 39.0 ng/mL Range: 32.0-100.0 1012:08 (Normal) Comments: Recent studies consider the lower limit of 32.0 ng/mL to isabel threshold for optimal health.Sheng BURNETT. J Nutr. 2004;135(2):317- 22.Performed at: [place] [id number] 296Lab Director: Korin Harris MD, Phone: [phone] 29-Oct-19 C DIF TOXIN/AG See Note Comments: [...] Crytosporidium parvum,Cyclospora, or Microsporidia.__ TESTING PERFORMED AT [facility]. ORIGINAL REPORT ONFILE IN LAB CONTAINS ADDITIONAL TEST SITE INFORMATION. OVA/ PARASITES EXAM NO OVA, CYSTS, OR PARASITES FOUND. :40 WBC,STOOL See Note (Normal) Comments: FECAL WBCs NONE SEEN 70-Osz-658269:25 ABDOMEN/PELVIS WITH CONTRAST Radiology Report See Note (Normal) Comments: Exam Number: [id number] CLINICAL:This is a 68-year-old female patient with [...] SED RATE 48 mm/h (Abnormal) Range: 0-30 52-Oht-553638:55 URINE ALEX CULTURE (JASMINE Comments: PATIENT NOT FASTINGPERFORMED BY: [facility] [id number] [facility] [id number] Information: SRC:UR [id number] COL COUNT) (57524) Result 1 NG36 (Normal) Comments: No growth in 36 - 48 hours. Urine Culture,Comprehensive Final report (Normal) 20-Ddm-574422:20 Urinalysis, Office (75150) UA - LEUKOCYTE ESTERASE Small (Normal) UA - NITRITE Negative (Normal) URINE UROBILINGN JASMINE TIMED 2 mg/dL (Normal) UA - PROTEIN Negative mg/dL (Normal) UA - PH 7.0 (Normal) UA - BLOOD Hemolyzed Trace (Normal) UA - SPECIFIC GRAVITY 1.015 (Normal) UA - KETONES Negative mg/dL (Normal) UA - BILIRUBIN Negative (Normal) UA - GLUCOSE Negative (Normal) 83-Epx-80963:11 BREAST UNILATERAL US (HP) Radiology Report See Note (Normal) Comments: Exam Number: [id number] CLINICAL:The patient is a 68-year-old female with [...] CHOL 147 mg/dL (Normal) Comments: <200 mg/dL Mdeskqedz434-066 mg/dL Borderline>240 mg/dL High Risk :03 LIVER ALB 4.2 g/dL (Normal) Range: 3.4-5.0 ALK P 66 U/L (Normal) Range: 50-136 ALT 29 U/L (Normal) Range: 12-78 AST 20 U/L (Normal) Range: 15-37 D BILI 0.09 mg/dL (Normal) Range: 0.00-0.30 T BILI 0.30 mg/dL (Normal) Range: 0.00-1.00 T PROT 7.9 g/dL (Normal) Range: 6.4-8.2 :41 Urinalysis, Office (72096) UA - LEUKOCYTE ESTERASE Trace (Normal) UA [...] Report See Note (Normal) Comments: Exam Number: [id number] CLINICAL: 68-year-old female with knee pain lateral [...] a full thickness radial tear of the slide maker ior horn of the medial meniscus extending [...] last examination. Reported By: John Alcocer M.D. 9-Tjl-303505:24 KNEE,4 OR MORE VIEWS (MT) Radiology Report See Note (Normal) Comments: Exam Number: [id number] CLINICAL:Pain X-RAY EXAMINATION RIGHT KNEE TECHNIQUE:4 view(s) [...] change. Osteopenia. Reported By: ARIADNA PERAZA M.D. 2-Mhw-062638:23 L/S SPINE,MIN 4 VIEWS (MT) Radiology Report See Note (Normal) Comments: Exam Number: [id number] CLINICAL:Low back pain, radiculopathy X-RAY EXAMINATION: LUMBAR [...] acute fracture. Reported By: ARIADNA PERAZA M.D. 8-Pui-182292:00 EMP URINALYSIS BILIRUBIN URINE SeeNote (Normal) Comments: [...] Range: 0.2 - 1.0 COLOR YELLOW (Normal) 6-Sir-442014:00 ROUTINE UA BILIRUBIN URINE SeeNote (Normal) Comments: [...] 6.4-8.2 URIC 4.3 mg/dL (Normal) Range: 2.6-6.0 57-Awh-23301:31 DEXA BONE DENSITY STUDY () Radiology Report See Note (Normal) Comments: Exam Number: [id number] BONE DENSITOMETRY HISTORYOsteopenia. TECHNIQUE Bone densitometry of the lumbar spine and both hips is now beingperformed. The best criteria for evaluation of osteoporosis is theT-value, which represents the comparison of the patient's bone mass leigh expected peak bone mass. For most patients, the mean T-value of U7lnaqfdy L4 is used to evaluate the lumbar [...] density is measured at 7.2% less than xq9063.The T-valu e of the right femoral neck is -2 which is in the range ofosteopenia.The T- value of the total right hip is -1.7 which is in the range ofosteopenia. IMPRESSIONThere is osteopenia of the lumbar spine and both hips. Reported By: GISSELLE GONZALES M.D. 05-Pzg-84362:54 BREAST UNILATERAL US () Radiology Report See Note (Normal) Comments: Exam Number: [id number] TARGETED LEFT BREAST ULTRASOUND HISTORYAbnormal mammogram. High-resolution [...] Greene's office and the office was called [id number] hours December 22, 2008. Reported By: GISSELLE GONZALES M.D. 38-Ffy-474347:35 [facility] Radiology Report See Note (Normal) Comments: Exam Number: [id number] MAMMOGRAM, UNILATERAL LEFT DIAGNOSTIC DIGITAL AND CAD [...] breast for which ultrasound isrecommended. The pa hcetor preferred to schedule the ultrasound forJuly 2008, rather than having it performed at the current time. FINAL ASSESSMENTNeed additional imaging evaluation. BIRADS Category 0. A letter regardi ng these results has been sent to the patient. This interpretation was rendered by a radiologist certified under theMammography Quality Standards Act of 1992 (MQSA). The mammograms werealso examined w [facility] computer-aided detection software ([employer] Reported By: GISSELLE GONZALES M.D. :30 BILAT SCRN DIGITAL & CAD Radiology Report See Note (Normal) Comments: Exam Number: [id number] MAMMOGRAM, BILATERAL SCREENING DIGITAL AND CAD HISTORYRoutine [...] mammograms werealso examined with computer-aided detection software ([employer] Reported By: GISSELLE GONZALES M.D. 77-Ihx-843836:37 BMP BUN 15 mg/dL (Normal) Range: 7-18 [...] g/dL (Normal) Range: 6.4-8.2 :11 AT3 F/I 50293 AT3 AG, IMMUNOL 131 % (Abnormal) Range: 75-130 AT3 FUNCT 74613 131 % (Normal) Range: 75-135 :11 PROT C 886515 PROT C,[id number] 169 % (Abnormal) Range: 74-151 Comments: Performed At: [address] [id number] PROTEIN C 97567 106 % (Normal) Range: 70-140 :11 PROT S 885149 PROTEIN S, FREE 107 % (Normal) Range: 56-124 PROTEIN S, FUNC 82 % (Normal) Range: 60-145 PROTEIN S,TOTAL 137 % (Normal) Range: 58-150 :38 A-CARDIO 453162 Comments: ORDER ALSO STATES ANTIPHOSPHOLIPIDS, WHICH IS [...] mm/h (Normal) Range: 0-30 :38 FAC II 530980 Comments: ORDER ALSO STATES ANTIPHOSPHOLIPIDS, WHICH IS A SYNONYM OFANTICARDIOLIPIN FACTOR II,DNA Comment (Normal) Comments: NEGATIVENo mutation identified.Comment:A point mutation ([id number]) in the Factor II (prothrombin)gene is the [...] antithrombinIII, protein C and protein S. :38 [facility]S [facility] [id number] Comments: ORDER ALSO STATES ANTIPHOSPHOLIPIDS, WHICH IS [...] , elevatedhomocysteine levels, or a Factor II/prothrombin mutation([id number]). Contact you r local [facility] for information [...] mg/dL VLDL 31 mg/dL (Normal) Range: 5-40 51-Hwi-094687:35 CULTURE, URINE URINE CULTURE See Note (Normal) Comments: Predominant colony type being a gram positive trevor, probableLactobacillus species. COLONY COUNT 50,000-80,000 ORGANISM 1: MIXED GRAM POSITIVE ORGANISMS 56-Gzi-192417:35 ROUTINE UA BILIRUBIN URINE SeeNote (Normal) Comments: [...] 0.2 EU/dl (Normal) Range: 0.2 - 1.0 81-Vpu-71237:48 Urinalysis, Office (59089) UA - BILIRUBIN Negative (Normal) UA - BLOOD Negative (Normal) UA - GLUCOSE Negative (Normal) UA - KETONES Negative mg/dL (Normal) UA - LEUKOCYTE ESTERASE Trace (Normal) UA - NITRITE Negative (Normal) UA - PH 6.5 (Normal) UA - PROTEIN Negative mg/dL (Normal) UA - SPECIFIC GRAVITY 1.005 (Normal) URINE UROBILINGN JASMINE TIMED 2 mg/dL (Normal) 0-Mcm-208397:04 BILAT SCRN DIGITAL & CAD Radiology Report See Note (Normal) Comments: Exam Number: [id number] MAMMOGRAM, BILATERAL SCREENING DIGITAL AND CAD HISTORYRoutine [...] werea lso examined with computer-aided detection software ([employer].). Reported By: GISSELLE GONZALES M.D. 9-Xob-200329:41 DEXA BONE DENSITY STUDY (HP) Radiology Report See Note (Normal) Comments: Exam Number: [id number] BONE DENSITOMETRY HISTORYOsteopenia. TECHNIQUE Bone densitometry of [...] density is measured at 0.2% less than hv6784 and 0.1% more than in 2005. IMPRESSIONThere is osteopenia of the lumbar spine and left hip. Reported By: GISSELLE GONZALES M.D. 43-Eaq-49457:19 CBC, EMPLOYEE HCT 36.9 % (Abnormal) Range: [...] {mg/24_hr} (Normal) Range: 1.8-6.7 Comments: Performed At: [address] [id number] VMA,UR 3.4 mg/L (Normal) :16 ALDOST,U24 4291 Comments: 24 H URINE TV = 2580 ML ALDOSTERONE,U24 3 {ug/24_hr} (Normal) Range: 2-21 Comments: 1 mo. 1 - 11 1- 12 mos. 1 - 22 1- 16 yrs. 2 - 16 Adult Ranges Normal diet 2 - 21 Low salt 17 - 44 High salt 0 - 14Performed At: [address] [id number] ALDOSTERONE,UR 1 ug/L (Normal) 75-Smp-762416:17 BRAIN/HEAD W/WO CONTRAST Radiology Report See Note (Normal) Comments: Exam Number: [id number] CT SCAN OF BRAIN HISTORYHeadache. Scans were [...] ethmoid sinusitis. Reported By: GISSELLE GONZALES M.D. 22-Ezm-25907:51 CBC With Differential/Platelet Comments: PERFORMED BY: [facility]3][id number] [facility] [id number] Baso (Absolute) 0.1 {x10E3/uL} (Normal) Range: 0.0-0.2 [...] Comp. Metabolic Panel (14) Comments: PERFORMED BY: [facility]3][id number] [place] [address] [id number] A/G Ratio 1.5 (Normal) Range: 1.1-2.5 Albumin, [...] Sedimentation 4 mm/h (Normal) Comments: PERFORMED BY: [facility]][id number] [facility] [id number] :51 Rate-Westergren Range: 0-30 :29 CULTURE, URINE URINE CULTURE See Note {CFU/mL} (Normal) Comments: COLONY COUNT >100,000 ORGANISM 1: ENTEROCOCCUS FAECALIS ENTEROCOCCUS FAECALIS: REACTION CIPROFLOXACIN GP $$$ <=0.5 S LEVOFLOXAC IN $$ <=1 S NITROFURANTOIN $ <=32 S PENICILLIN G (ENTEROCOCCUS) $$ 2 S TETRACYCLINE $$ <=1 S VANCOMYCIN $$ <=0.5 S 3-Dlj-793856:29 ROUTINE UA BILIRUBIN URINE SeeNote (Normal) Comments: [...] tissue mass Soft tissue mass : Reviewed Business Development Professional Letter Indication: Soft tissue mass Gastroesophageal reflux [...] EASY BRUISABILITY OF SKIN Planned Observations TSH (04989)Indication: Hypercholesterolemia On: Request URINALYSIS, W/ MICRO (56516)Indication: Essential hypertension On: Request MICROALBUMIN: CREATININE RATIO (88860) AND (61558)Indication: Essential hypertension On: : Request METABOLIC PANEL, COMPREHENSIVE (37492)Indication: Essential hypertension On: Request LIPOPROTEIN, BLD, BY NMR (58479)Indication: Hypercholesterolemia On: 60-Anw-648191:41 Request CBC W/AUTO DIFF WBC (11362)Indication: Essential hypertension On: 53-Rsw-261515:41 Request TSH (63398)Indication: Hypercholesterolemia On: :51 Request URINALYSIS, W/ MICRO (79717)Indication: Essential hypertension On: :51 Request MICROALBUMIN: CREATININE RATIO (51040) AND (70855)Indication: Essential hypertension On: :51 Request METABOLIC PANEL, COMPREHENSIVE (10862)Indication: Essential hypertension On: :51 Request LIPID PANEL (23944)Indication: Essential hypertension On: :51 Request CBC W/AUTO DIFF WBC (51148)Indication: Essential hypertension On: :51 Request Metabolic Panel, Basic (67882)Indication: Essential hypertension On: 81-Woe-672724:32 Request Comments: 2 weeks Vitamin D Hydroxy (54221)Indication: Osteopenia On: :23 Request URINALYSIS, W/ MICRO (65071)Indication: Essential hypertension On: :23 Request CBC W/AUTO DIFF WBC (62982)Indication: Essential hypertension On: :23 Request METABOLIC PANEL, COMPREHENSIVE (69410)Indication: Essential hypertension On: :23 Request LIPID PANEL (57982)Indication: Hypercholesterolemia On: :22 Request SED RATE ERYTHROCYTE (28885)Indication: Abdominal pain, acute, generalized On: :47 Request C-REACTIVE PROTEIN (82056)Indication: Abdominal pain, acute, generalized On: :47 Request CBC with auto diff (94382)Indication: Abdominal pain, acute, generalized On: :46 Request URINALYSIS, W/ MICRO (57365)Indication: Essential hypertension On: :27 Request LIPID PANEL (28064)Indication: Hypercholesterolemia On: :27 Request METABOLIC PANEL, COMPREHENSIVE (02393)Indication: Essential hypertension On: :26 Request VARICELLA-ZOSTER ANTBODY (50560)Indication: Hypercholesterolemia On: 73-Rig-779466:58 Request TSH (56667)Indication: Anxiety associated with depression On: :12 Request LIPID PANEL (86885)Indication: Hypercholesterolemia On: :12 Request CBC W/AUTO DIFF WBC (23319)Indication: Essential hypertension On: :12 Request METABOLIC PANEL, COMPREHENSIVE (30535)Indication: Essential hypertension On: :12 Request VARICELLA-ZOSTER ANTBODY (09575)Indication: screen On: :59 Request CBC WITH MANUAL DIFF (27779)Indication: Essential hypertension On: 90-Rop-235685:59 Request LIPID PANEL (63450)Indication: Hypercholesterolemia On: :58 Request METABOLIC PANEL, COMPREHENSIVE (58961)Indication: Essential hypertension On: 70-Yqd-572417:58 Request Vitamin D Hydroxy (90814)Indication: Osteopenia On: :33 Request METABOLIC PANEL, COMPREHENSIVE (58995)Indication: Essential hypertension On: :33 Request LIPID PANEL (81209)Indication: Hypercholesterolemia On: :33 Request METABOLIC PANEL, COMPREHENSIVE (24797)Indication: Essential hypertension On: :57 Request LIPID PANEL (82421)Indication: Hypercholesterolemia On: :56 Request Vitamin D Hydroxy (81562)Indication: Anxiety associated with depression On: 01-Sig-033370:51 Request CBC WITH MANUAL DIFF (81939)Indication: Essential hypertension On: 11-Plr-191861:51 Request METABOLIC PANEL, COMPREHENSIVE (57978)Indication: Essential hypertension On: 61-Cer-843712:51 Request TSH (97321)Indication: Anxiety associated with depression On: 35-Ogz-631081:51 Request LIPID PANEL (09757)Indication: Hypercholesterolemia On: 16-Xab-517019:50 Request CBC WITH MANUAL DIFF (02647)Indication: Essential hypertension On: :30 Request METABOLIC PANEL, COMPREHENSIVE (19893)Indication: Essential hypertension On: :25 Request LIPID PANEL (87287)Indication: Hypercholesterolemia On: :25 Request URINALYSIS, W/ MICRO (93616)Indication: Essential hypertension On: 41-Ojb-888115:08 Request CBC WITH MANUAL DIFF (42069)Indication: Essential hypertension On: 41-Fwm-927611:08 Request METABOLIC PANEL, COMPREHENSIVE (06939)Indication: Essential hypertension On: 12-Kgl-962861:06 Request LIPID PANEL (35428)Indication: Hypercholesterolemia On: 24-Lkx-396994:06 Request LIPID PANEL (30345)Indication: Hypercholesterolemia On: :28 Request CBC WITH MANUAL DIFF (21964)Indication: Essential hypertension On: :28 Request METABOLIC PANEL, COMPREHENSIVE (55776)Indication: Essential hypertension On: :28 Request METABOLIC PANEL, COMPREHENSIVE (05852)Indication: Essential hypertension On: :48 Request Vitamin D Hydroxy (98263)Indication: Depression On: :48 Request LIPID PANEL (69239)Indication: Hypercholesterolemia On: 58-Yge-380060:47 Request CBC WITH MANUAL DIFF (70735)Indication: Other chest pain On: 63-Vez-743065:19 Request METABOLIC PANEL, COMPREHENSIVE (25786)Indication: Other chest pain On: 85-Mik-217554:18 Request ASSAY, TROPONIN, QUANTITATIVE (aka Troponin I) (39178)Indication: Other chest pain On: 36-Gto-953504:18 Request Comments: stat CALCIFEDIOL (50413)Indication: Eczema (Renamed from Dermatitis, eczematoid) On: 05-Ylm-085082:34 Request OVA & PARASITE DIR SMEAR (47030)Indication: Diarrhea (Renamed from D (diarrhea)) On: 79-Jjt-453777:11 Request LEUKOCYTE COUNT, FECAL (26152)Indication: Diarrhea (Renamed from D (diarrhea)) On: 07-Cdb-550499:10 Request C.Difficile, Stool (96114)Indication: Diarrhea (Renamed from D (diarrhea)) On: 09-Jam-167387:10 Request ALEX CULTURE-STOOL (67374)Indication: Diarrhea (Renamed from D (diarrhea)) On: 12-Pkk-964842:10 Request SED RATE ERYTHROCYTE (38534)Indication: Abdominal pain, acute, left lower quadrant On: 30-Pvt-258263:10 Request C-REACTIVE PROTEIN (89812)Indication: Abdominal pain, acute, left lower quadrant On: 18-Elx-686443:10 Request URINALYSIS, W/ MICRO (89695)Indication: Abdominal pain, acute, left lower quadrant On: 80-Hyu-701943:10 Request METABOLIC PANEL, COMPREHENSIVE (15094)Indication: Abdominal pain, acute, left lower quadrant On: 36-Rzg-596825:10 Request CBC WITH MANUAL DIFF (79073)Indication: Abdominal pain, acute, left lower quadrant On: 67-Bek-352540:10 Request METABOLIC PANEL, COMPREHENSIVE (34823)Indication: Essential hypertension On: 87-Mrq-874302:47 Request HEPATIC FUNCTION PANEL (83890)Indication: Hypercholesterolemia On: :47 Request LIPID PANEL (32456)Indication: Hypercholesterolemia On: :47 Request Vitamin D Hydroxy (90720)Indication: Osteopenia On: :46 Request LIPID PANEL (96415)Indication: Hypercholesterolemia On: :38 Request HEPATIC FUNCTION PANEL (41359)Indication: Hypercholesterolemia On: :38 Request Metabolic Panel, Basic (72296)Indication: DISORDERS, ORGANIC, SLEEP RELATED LEG CRAMPS On: 31-Kdq-224700:17 Request URINALYSIS W/O MICRO (45339)Indication: Essential hypertension On: :48 Request TSH (68361)Indication: Essential hypertension On: :48 Request METABOLIC PANEL, COMPREHENSIVE (20656)Indication: Essential hypertension On: 4-Tuc-345524:48 Request CBC WITH MANUAL DIFF (71865)Indication: Essential hypertension On: :48 Request LIPID PANEL (59513)Indication: Hypercholesterolemia On: :48 Request CBC WITH MANUAL DIFF (90088)Indication: Anemia, unspecified On: 15-Fix-41101:51 Request LIPID PANEL (19078)Indication: Hypercholesterolemia On: :31 Request HEPATIC FUNCTION PANEL (27448)Indication: Hypercholesterolemia On: :41 Request LIPID PANEL (05034)Indication: Hypercholesterolemia On: :41 Request SED RATE ERYTHROCYTE (89048)Indication: Headache (Renamed from Cephalalgia) On: 14-Ctt-76011:40 Request METABOLIC PANEL, COMPREHENSIVE (73373)Indication: Headache (Renamed from Cephalalgia) On: :39 Request CBC WITH MANUAL DIFF (77117)Indication: Headache (Renamed from Cephalalgia) On: :39 Request CBC WITH MANUAL DIFF (45634)Indication: EASY BRUISABILITY OF SKIN On: :59 Request PTT (ACTIVATED PARTIAL THROMBOPLASTIN TIME) (79743)Indication: EASY BRUISABILITY OF SKIN On: :59 Request PT (PROTHROMBIN TIME) (99242)Indication: EASY BRUISABILITY OF SKIN On: :59 Request HEPATIC FUNCTION PANEL (79117)Indication: Hypercholesterolemia On: :54 Request LIPID PANEL (04765)Indication: Hypercholesterolemia On: :54 Request Planned Encounters Medical; 2 Week FU - On: 03-May-2018 11:45 [facility] Catrina Perry DO, DO, [facility]; 4 Month FU - On: 16-Aug-2018 10:00 [facility] Catrina Perry DO, DO, Kathleen Planned Procedures CT OF NECK WITHOUT THEN WITH On: 09-Apr-2018 Intent INTRAVENOUS CONTRAST (70290)By: Comments: include thyroid Acacia Whaley CNP Ultrasound - ThyroidBy: Jovana OJEDA, On: 09-Apr-2018 Intent Acacia Wang Comments: attetion soft tissue rt side of neck Flu Vaccine (Quadrivalent) 87884Zf: On: 13-Mar-2018 Intent Ladi Max Comments: Lot #[id number]-L dltd, IMDose prefilled syringegiven by:SABINA Mclain reviewed and ABN signed FLAT PLATE (59324)By: Jovana OJEDA, On: 19-Dec-2017 Intent Acacia Wang ELECTROCARDIOGRAM, COMPLETE (ECG) On: 12-Dec-2017 Intent (56448)By: Catrina Perry DO Comments: nsr no acute chg Catrina Perry DO Bone Density StudyBy: Tessie Greene DO On: 10-May-2015 Intent A Comments: screening ADMINISTRATION OF INFLUENZA VIRUS On: 05-Feb-2015 Intent VACCINE (G0008)By: Tessie Greene DO A Flu Vaccine (Quadrivalent) 13653Bz: On: 05-Feb-2015 Intent Tessie Greene DO Comments: Lot:[id number]:09/01/15Dose:0.5mLRoute:IMSite:L DltdGiven By:MARTY signed MAMMOGRAM, SCREENING, BOTH BREAST On: 05-Feb-2015 Intent (44392)By: Tessie Greene DO Comments: reilly DEXA SCAN AXIAL SKELETON (25293)By: On: 05-Feb-2015 Intent Tessie Greene DO Comments: reilly Solu -Medrol Injection, 125 mg On: 09-Dec-2014 Intent (J2930)By: Acacia Whaley CNP Comments: lot:[id number]:route:IMdose:125MGsite: R glutGiven by: ROSANGELA Gamble MAMMOGRAM, SCREENING, BOTH BREAST On: 13-Mar-2014 Intent (95849)By: Tessie Greene DO ADMINISTRATION OF INFLUENZA VIRUS On: 13-Mar-2014 Intent VACCINE (G0008)By: Tessie Greene DO FLU VAC, SPLIT, >3 YEARS, INTRAMUSC On: 13-Mar-2014 Intent (88072)By: Tessie Greene DO Comments: lot: [id number]: 12-01-13site/route: L del/IMamt: 0.5mLVIS signed when applicableROSANGELA Villa Eprescribed prescriptions (G8553)By: On: 16-Sep-2013 Intent Tessie Greene DO Eprescribed prescriptions (G8553)By: On: 18-Mar-2013 Intent Libby Herndon FLU VAC, SPLIT, >3 YEARS, INTRAMUSC On: 20-Feb-2013 Intent (24550)By: Fallon Carranza Comments: Lot:[id number]:Dose:0.5mLRoute:IMSite:L DltdGiven By:MARTY signed IMMUNIZ ADMNIN, 1 VAC, SNGL/COMBO On: 20-Feb-2013 Intent (64974)By: Fallon Carranza MAMMOGRAM, SCREENING, BOTH BREASTS On: 31-Dec-2012 Intent (81449)By: Tessie Greene DO Eprescribed prescriptions (G8553)By: On: 11-Nov-2012 Intent Libby Herndon Eprescribed prescriptions (G8553)By: On: 23-Sep-2012 Intent Libby Herndon EKG (72422)By: Libby Herndon On: 21-Aug-2012 Intent Comments: ekg showed normal sinus rhythym, normal axis, no acute st/t wave changes Eprescribed prescriptions (G8553)By: On: 25-Jun-2012 Intent Tanya Bermduez LPN PNEUM VAC ADLT/IMUMNOSPR, SBC/INTRM On: 03-May-2012 Intent (05210)By: Tessie Greene DO Comments: Lot:[id number]:08-06-13Dose:0.5mLRoute:IMSite:L armGiven By:AGA ADMINISTRATION OF PNEUMOCOCCAL On: 03-May-2012 Intent VACCINE (G0009)By: Tessie Greene DO Eprescribed prescriptions (G8553)By: On: 03-May-2012 Intent Libby Herndon Xcrooqmwb-Yiz-Hoqxb (29760)By: Jovana On: 08-Apr-2012 Intent Acacia OJEDA DXA, BONE DENSITY, AXIAL SKELETON On: 30-Jan-2012 Intent (60719)By: Tessie Greene DO MAMMOGRAM, SCREENING, BOTH BREASTS On: 30-Jan-2012 Intent (52244)By: Tessie Greene DO IMMUNIZ ADMNIN, 1 VAC, SNGL/COMBO On: 30-Jan-2012 Intent (06506)By: Megan Phillips LPN Comments: Lot/Exp: [id number], 11/2011Given in L Dltd, IMPrefilled SyringeBy ROEL Guzman FLU VAC, SPLIT, >3 YEARS, INTRAMUSC On: 30-Jan-2012 Intent (07212)By: Megan Phillips LPN Breast Screening - BilateralBy: [...] DO, Tessie A On: 01-May-2011 Intent EKG (45450)By: Libby Herndon On: 01-May-2011 Intent Comments: ekg showed normal sinus rhythym, normal axis, no acute st/t wave changes poor r wave progression unchanged TDAP VACCINE >7 IM ([id number])By: On: 01-May-2011 Intent Libby Herndon Comments: work FLU VAC, SPLIT, >3 YEARS, INTRAMUSC On: 01-May-2011 Intent ([id number])By: Libby Herndon Comments: work DXA, BONE DENSITY, AXIAL SKELETON On: 09-Feb-2011 Intent ([id number])By: Monserrat Granado LPN MAMMOGRAM, SCREENING, BOTH BREASTS On: 09-Feb-2011 Intent ([id number])By: Monserrat Granado LPN Radiology - Ankle - LeftBy: Ciesa On: 14-Dec-2010 Intent RUSTY Acacia Wang Comments: call wet read to Acacia Whaley Eprescribed prescriptions ([id number])By: On: 15-Nov-2010 Intent Jc DO Tessie A CT - Abdomen & PelvisBy: Jc DO, On: 26-Oct-2009 Intent Tessie A Comments: tomorrow call wet read EKG ([id number])By: Libby Herndon On: 30-Aug-2009 Intent Comments: do [...] DO, On: 07-Jun-2007 Intent Tessie A EKG ([id number])By: Jc BROUSSARD Tessie A On: 28-Apr-2007 Intent Comments: ordered to be done at the hospital CT - Brain/HeadBy: Tessie Greene DO On: 20-Mar-2007 Intent Comments: with and without contrast- please do stat and call wet read IMMUNIZ ADMNIN, 1 VAC, SNGL/COMBO On: 04-Apr-2006 Intent ([id number])By: Libby Herndon PNEUM VAC ADLT/IMUMNOSPR, SBC/INTRM On: 04-Apr-2006 Intent ([id number])By: Libby Herndon Comments: Lot #:Expiration date:Amount given:Route: IMSite given:LEFT DELTOIDGiven by: JESSICA Weinberg IMMUNIZ ADMNIN, 1 VAC, SNGL/COMBO On: 04-Apr-2006 Intent ([id number])By: Tessie Greene DO PNEUM VAC ADLT/IMUMNOSPR, SBC/INTRM On: 04-Apr-2006 Intent ([id number])By: Tessie Greene DO Planned Medications INJECTION, METHYLPREDNISOLONE [...] The patient does have durable power of traffic law attorney and living will. The patient has [...] The patient does have durable power of traffic law attorney and living will. The patient has noticed nothing from the geriatic depre ssion scale. Other providers contributing to the patient's care are other: (hearing and eye drLatrell herrera and Dr. Zamora). 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 and got a pressure sore- having to [...] df's recieved documents from Dr. Nichole at [facility]). 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
--- OUTSIDE RECORDS SUMMARY | 2018-08-24 15:46 | XMS RPT_ITS | Continuity of Care Document ---
:1940 External Reference #:[id number] Author Organization [facility] Address [address] [place] [address] Phone Care Team Providers Name Role Phone Catrina Perry DO Unavailable Ricardo Rollins MD Unavailable Dr. Addison Kimball Unavailable [facility] PLASCENCIA, Dr. Janes Dougherty Unavailable Sadia Goel Unavailable Unavailable Carli Marks Unavailable Unavailable Libby Herndon Unavailable Unavailable Fallon Carranza Unavailable Unavailable Fire Watcher, System Unavailable Unavailable Carolin Garber LPN Unavailable Unavailable Jovana OJEDA, Lori Unavailable Unavailable Unavailable Problems Name Dates Details Abdominal pain (R10.9, 789.00) Status: Active Acute sinusitis, unspecified (J01.90, 461.9) Status: Active Annual Medicare Phyiscal WITHOUT abnormal findings (Renamed from Encounter for general adult medical examination without abnormal findings) (Z00.00, V70.9) Status: Active Anxiety 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, 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) Comments: she feels managing now on vibryd Status: Active BMI 22.0-22.9, adult (Z68.22, V85.1) Status: Active BMI 23.0-23.9, adult (Z68.23, V85.1) Status: Active BMI 25.0-25.9,adult (Z68.25, V85.21) Status: Active Change in bowel habit (R19.4, 787.99) Status: Active Constipation (K59.00, 564.00) Comments: miralax helps Status: Active Depression (F32.9, 311) Comments: chronic [...] other cardiovascular diseases (Z82.49, V17.4) Status: Active Gastroesophageal reflux disease without esophagitis (K21.9, 530.81) Status: Active Hearing loss, unspecified laterality (389.9) Status: Active Hypercholesterolemia (E78.00, 272.0) Status: Active Low back pain (Renamed from LBP (low back pain)) (M54.5, 724.2) 19-Aug-2010 Status: Active Low back pain potentially associated with radiculopathy (M54.5, 724.2) Status: Active Neck pain (M54.2, 723.1) Comments: use ibuprofen Status: Active Need for prophylactic vaccination and [...] Status: Active Osteoarthritis (M19.90, 715.90) Status: Active Osteopenia (M85.80, 733.90) Status: Active Osteoporosis, 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 lipoma, cyst? lymph? will ultrasound thyroid and attention rt neck and CT with contrast showing likely lymph node, will refer formally to Dr. 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) Status: Active screen Status: Active screening Status: Active screening Status: Active screening Status: Active screening Status: Active Soft tissue mass (M79.9, 729.90) Comments: lateral side of rt lobe of thyroid 2.3x 2.9 it is a lymph node or mass, CT required Status: Active Suprapubic pain, acute (R10.2, 789.09) Status: Active CAROLINE Status: Active Unspecified Diagnosis Status: Active Uterovaginal [...] 1 qd (20 MG) Active CITRACAL MAXIMUM, [id number] (Oral Tablet) 1 tab bid (315-250 MG-UNIT) [...] for 0 days Refills: 0 Ordered:31-Dec-2017 Slarb Mirela SEVILLA Omeprazole 20 MG Oral Capsule Delayed Release [address] qd for 0 days Quantity: 90 {Capsule} Refills: 3 Ordered:26-Dec-2017 Nick Perry DO, DO, Kathleen Start : 26-Dec-2017 Active Simvastatin 40 MG Oral Tablet 1 (one) Tablet qd for 0 days Quantity: 90 {Tablet} Refills: 3 Ordered:26-Dec-2017 Nick Perry DO, DO, Kathleen Start : 26-Dec-2017 Active ALEVE, 220MG (Oral Tablet) 2 (two) Tablet q8 hr prn with food for 0 days Quantity: 30 {Tablet} Refills: 0 Ordered:30-Jan-2012 Megan Phillips LPN Start : 14-Dec-2010 End : 30-Jan-2012 Inactive [...] days Quantity: 90 {Tablet_ER_24HR} Refills: 0 Ordered:13-Nov-2011 Lara Tanya ROEL Start : 13-Nov-2011 End : 11-Feb-2012 Inactive [...] Past Medical History Name Dates Details Abdominal pain, acute, generalized (R10.84, 789.07) Status: [...] (B37.9, 112.9) Status: Resolved as of 30-Aug-2009 Dermatophytosis of the body (110.5) Status: Resolved [...] (R11.2, 787.01) Status: Inactive as of 16-Nov-2008 No known drug allergy (Z78.9, V49.89) 13-Mar-2014 Status: Inactive as of 26-Oct-2009 Other chest pain (R07.89, 786.59) Status: Resolved as of 29-Sep-2011 Pain in joint involving ankle and foot, unspecified laterality (M25.579, 719.47) Comments: stepped down and felt burning pain on ankle Status: Resolved as of 29-Sep-2011 Poison casandra (L23.7, 692.6) Status: Resolved as [...] WITH Contrast Result: Comments: See Note; NOTES: [facility] Imaging Services [address] [place] [address] Soft Tissue Neck WITH Contrast MR#: [id number] Acct: [id number] Name: HERMAN LEONARD Rep #: [id number] : 1940 F 77 From: Michael Alonso MD PCP: Catrina Perry DO Status: REG CLI Study: Soft Tissue Neck WITH Contrast Date of Exam: 04/10/18 Exam# [id number] Ordering Dr: Acacia Whaley STUDY: CT SOFT [...] FINDINGS: Normal bilateral parotid glands. Normal bilateral district director spaces. Normal bilateral parapharyngeal spaces. Normal bilateral [...] Alonso MD 04/10 at 15:37 EST Tel [phone], Service support , CC: Acacia Whaley NP; Catrina Perry DO Fight Manager: Signed 10-Apr-2018 Soft Tissue Neck WITH Contrast Result: Comments: See Note; NOTES: [facility] Imaging Services [address] [place] [address] Soft Tissue Neck WITH Contrast MR#: [id number] Acct: [id number] Name: HERMAN LEONARD Rep #: [id number] : 1940 F 77 From: Michael Alonso MD PCP: Catrina Perry DO Status: REG CLI Study: Soft Tissue Neck WITH Contrast Date of Exam: 04/10/18 Exam# [id number] Ordering Dr: Acacia Whaley PJesus ADDENDUM by Michael Alonso MD on 04/11/18 [...] Michael Alonso MD at 8:47 EST Tel [phone], Service support , 04/11/18 0847 Date cc : Acacia Whaley NP; Catrina Perry DO * Signed ADDENDUM by Michael Alonso MD on 04/11/[address]/Soft Tissue Neck WITH Contrast 04/11/18 0854 Date cc: Acacia Willis sa SAWMILL PRODUCTION WORKER; Catrina Perry DO * Signed STUDY: CT [...] FINDINGS: Normal bilateral parotid glands. Normal bilateral district director spaces. Normal bilateral parapharyngeal spaces. Normal bilateral [...] Michael Alonso MD at 15:37 EST Tel [phone], Service support , CC: Acacia Whaley NP; Catrina Perry DO Fight Manager: Signed 09-Apr-2018 Thyroid Result: Comments: See Note; NOTES: [facility] Imaging Services [address] [place] [address] Thyroid MR#: [id number] Acct: [id number] Name: HERMAN LEONARD Rep #: [id number] : [birth year] F 77 From: Michael Alonso MD PCP: Catrina Perry DO Status: REG CLI Study: Thyroid Date of Exam: 04/09/18 Exam# [id number] Ordering Dr: Acacia Whaley SAWMILL PRODUCTION WORKERJesus STUDY: THYROID ULTRASOUND REASON FOR EX AM: [...] Alonso MD at 15:[address] Tel [phone], Service support , CC: Acacia Whaley SAWMILL PRODUCTION WORKER; Catrina Perry DO Fight Manager: Signed 19-Dec-2017 Abdomen Single View Result: Comments: See Note; NOTES: [facility] Imaging Services [address] [place] [address] Abdomen Single View MR#: [id number] Acct: [id number] Name: HERMAN LEONARD Rep #: [id number] D OB: 1940 F 76 From: Chris Rachel MD PCP: Catrina Perry DO Status: REG CLI Study: Abdomen Single View Date of Exam: 12/19/17 Exam# [id number] Ordering Dr: Acacia Whaley STUDY: X-RAY - [...] , Service support , CC: Acacia Whaley NP; Catrina Perry DO Fight Manager: Signed 20-May-2015 Dexa Bone Density Study (HP) Result: Comments: See Note; NOTES: [facility] Imaging Services [address] [place] [address] Verdana 4d Dexa Bone Density Study () MR#: [id number] Acct: [id number] Name : HERMAN LEONARD Rep #: [id number] : 1940 F 74 From: Michael Alonso MD PCP: Tessie Greene DO Status: REG CLI Study: Dexa Bone Density Study () Date of Exam: 05/20/15 Exam# [id number] Zulema carney Dr: Tessie Greene DO STUDY: [...] Michael Alonso MD at 10:30 EST Tel [phone], Service support [phone], CC: Jailyn Yang MD; Tessie Greene DO Fight Manager: Signed 06-Apr-2015 Bilat Scrn Digital AND CAD Result: Comments: See Note; NOTES: [facility] Imaging Services [address] [place] [address] Verdana 4d Bilat Scrn Digital AND CAD MR#: [id number] Acct: [id number] Name: HERMAN LEONARD Rep #: [id number] : 1940 F 74 From: Michael Alonso MD PCP: Tessie Greene DO Status: REG CLI Study: Bilat Scrn Digital AND CAD Date of Exam: 04/06/15 Exam# [id number] Ordering D r: Tessie Greene DO MAMMOGRAPHY [...] Michael Alonso MD at 7:54 EST Tel [phone], Service support [phone], CC: Tessie Greene DO Fight Manager: Signed 05-Feb-2015 EKG (36169) Comments: ekg showed normal sinus rhythym, normal axis, no acute st/t wave changes Result: [MEASUREMENTS ANALYSIS] Date of Test: 02/05/2015 09:47:50; Heart Rate: 58; MN Interval: 156; QRS: 93; QT Interval: 420; Corrected QT Interval (QTc): 417; P Wave Orlando: 31; QRS Wave Orlando: 31; T Wave Orlando: 44; Blood Pressure: 122/84 [ECG DIAGNOSTIC STATEMENTS] Date of Test: 02/05/2015 09:47:50; Summary: Sinus Bradycardia WITHIN NORMAL LIMITS 27-Mar-2014 Bilat Scrn Digital & CAD Result: Comments: See Note; NOTES: [facility] Imaging Services [address] [place] [address] Breast Imaging Report MR#: [id number] Acct: [id number] Name: HERMAN LEONARD Rep #: [id number] : 1940 F 73 From: Michael Alonso MD PCP: Tessie Greene DO Status: REG CLI Exam# [id number] Ordering Dr: Tessie Greene DO MAMMOGRAPHY - [...] Michael Alonso MD at 9:36 EDT Tel [phone], Service support [phone], CC: Tessie Greene DO Fight Manager: Signed 26-Mar-2013 Db Carranza Digital & CAD Result: Comments: See Note; NOTES: [facility] Imaging Services [address] [place] [address] Breast Imaging Report MR#: [id number] Acct: [id number] Name: HERMAN LEONARD Rep #: [id number] : 1940 F 72 From: Michael Alonso MD PCP: Tessie Greene DO Status: REG CLI Exam# [id number] Ordering Dr: Tessie Greene DO MAMMOGRAPHY - [...] March 26, 2013 at 2:33:33 PM EDT [phone] Electronically Signed GP/GP If you are the referring physician and would like to consult with the radiologist who pr ovided this interpretation, please contact Michael Alonso M.D. at [phone]. If this radiologist is unavailable, you will be directed to another radiologist to assist. If you are a patient w ith a question regarding this report, please contact your referring physician directly. Professional Interpretation Provided By: [employer], Phone , These documents contain legally protected [...] of these documents. CC: Tessie Greene DO Fight Manager: Signed Immunization Name Dates Details Pneumococcal (2 years and up) on: 04-Apr-2006 Pneumococcal (2 years and up) on: 04-Apr-2006 Comments: Lot #:Expiration date:Amount given:Route: IMSite given:LEFT DELTOIDGiven by: EDILMA Weinberg Family History Unknown Family Member Name Dates Details Father Comments: MS Status: Active Mother Comments: CHF Status: Active Paternal Grandmother Comments: ABD CA Status: Active Social History Name Dates Details Alcohol Use Comments: Occasional alcohol use Status: Active Non Smoker/No Tobacco Use Status: Active Tobacco use: Never smoker. Status: Active Smoking Status Name Dates Details Never smoker Vital Signs Date Test Result Details 3-Wea-251434:59 Temperature 97.4 f Comments: Method: Temporal Pulse [...] 0.00 cm Results Date Description Value Details :47 CREATININE FINGERSTICK Comments: [facility] [place] [address] [place], [place] [id number] EGFR WB > 60.0000 mL/min (Normal) CREATININE WB 0.8 mg/dL (Normal) Range: 0.55-1.02 :40 Bilirubin, Direct Comments: Order Date: 03/13/17Order Info: [id number] - *Hepatic Function PanelOrder Info: [id number] - *Lipid Profile CC PCPComments: 12 hours fasting, may have water.DR PÉREZ ORDERED LIPID/LIVERDR VICKY ORDERED TS H/CBCD/LIPID/CMP/UA/[facility] [address] [place], [place], [id number] D BILI 0.11 mg/dL (Normal) Range: 0.00-0.30 :40 CBC W/Diff, Automated Comments: DR PÉREZ ORDERED LIPID/LIVERDR PERRY ORDERED TSH/CBCD/LIPID/CMP/UA/[facility] [address] [place], [place], [id number] SMEAR COMMENT SCANNED (Normal) Absolute Lymph 2.16 [...] 4.2-5.4 WBC 5.8 K/mm3 (Normal) Range: 4.4-11.0 54-Gez-04451:40 [facility] Met[facility] Comments: Order Date: 03/13/17Order Info: [id number] - *Hepatic Function PanelOrder Info: [id number] - *Lipid Profile CC PCPComments: 12 hours fasting, may have water.DR PÉREZ ORDERED LIPID/LIVERDR VICKY ORDERED TS Profil H/CBCD/LIPID/CMP/UA/[facility] [address] [place], [address] GAP 5 (Normal) Range: 5-15 CO2 32.0 [...] Comments: Please note revised GLUCOSE reference range lwvpdcooa00/02/2018. 82-Bfe-57597:40 Lipid Profile Comments: Order Date: 03/13/17Order Info: [id number] - *Hepatic Function PanelOrder Info: [id number] - *Lipid Profile CC PCPComments: 12 hours fasting, may have water.DR PÉREZ ORDERED LIPID/LIVERDR PERRY ORDERED TS H/CBCD/LIPID/CMP/UA/[facility] [address] [place], [place], [address] VLDL 11 mg/dL (Normal) Range: 5-40 LDL [...] Comments: DR PÉREZ ORDERED LIPID/JUNIOR PERRY ORDERED TSH/CBCD/LIPID/CMP/UA/[facility] [address] [place], [address] Ratio,Random UR MALB:CREAT 9.7 {mg/g_CRE} (Normal) MICROALBUMIN,UR 5.3 mg/L (Normal) UR CREAT 55.10 mg/dL (Normal) :40 Thyroid Stim Hormone Comments: Order Date: 03/13/17Order Info: [id number] - *Hepatic Function PanelOrder Info: [id number] - *Lipid Profile CC PCPComments: 12 hours fasting, may have water.DR PÉREZ ORDERED LIPID/LIVERDR PERRY ORDERED TS (TSH) H/CBCD/LIPID/CMP/UA/[facility] [address] [place], [address] TSH 1.84 {uIU/mL} (Normal) Range: 0.358-3.74 24-Bmz-86347:40 Urinalysis, Complete Comments: DR PÉREZ ORDERED LIPID/LIVERDR VICKY ORDERED TSH/CBCD/LIPID/CMP/UA/MIACREHow was Urine Obtained? [facility] [address] [place], [place], [id number] MUCUS, URINE 0 SEEN {/hpf} (Normal) BACTERIA [...] (Normal) CLARITY Clear (Normal) COLOR Yellow (Normal) 21-Pal-926412:44 URINE ALEX CULTURE-IDENTIFICATN Comments: PATIENT NOT FASTINGPERFORMED BY: [facility] [facility] [id number] Information: [id number] ([id number]) Result 1 CNSNSS (Abnormal) Comments: Coagulase negative [...] S Urine Final report Culture,Compreh (Abnormal) ensive 81-Pwn-457187:10 Urinalysis, Office (74293) UA - LEUKOCYTE ESTERASE Small (Normal) UA - NITRITE Negative (Normal) URINE UROBILINGN JASMINE TIMED Normal mg/dL (Normal) UA - PROTEIN Negative mg/dL (Normal) UA - PH 7 (Normal) UA - BLOOD non-hemolyzed trace (Normal) UA - SPECIFIC GRAVITY 1.015 (Normal) UA - KETONES Negative mg/dL (Normal) UA - BILIRUBIN Negative (Normal) UA - GLUCOSE Negative (Normal) 88-Tva-914411:16 Basic Metabolic Profile (BMP) Comments: [facility] [address] [place], [place], [address] ; will review at appt GAP 6 [...] 7-18 GLU 87 mg/dL (Normal) Range: 70-110 99-Yyj-583471:25 URINE ALEX CULTURE (JASMINE Comments: PATIENT NOT FASTINGPERFORMED BY: [facility] Wmtihn[address]874 [facility] [id number] Information: SRC:[facility] [id number] COL COUNT) (50511) Result 1 NG36 (Normal) Comments: No growth in 36 - 48 hours. Urine Culture,Comprehensive Final report (Normal) 38-Ujz-612942:44 Urinalysis, Office (78331) UA - LEUKOCYTE ESTERASE Negative (Normal) UA - NITRITE Negative (Normal) URINE UROBILINGN JASMINE TIMED Normal mg/dL (Normal) UA - PROTEIN Negative mg/dL (Normal) UA - PH 6.5 (Normal) UA - BLOOD Hemolyzed Trace (Normal) UA - SPECIFIC GRAVITY 1.010 (Normal) UA - KETONES Negative mg/dL (Normal) UA - BILIRUBIN Negative (Normal) UA - GLUCOSE Negative (Normal) 86-Uez-277107:10 URINE ALEX CULTURE (JASMINE Comments: PATIENT NOT FASTINGPERFORMED BY: [facility] Mcgrqh7197 [facility]ment[facility] RoadLev[facility] [id number] Information: SRC:[facility] [id number] COL COUNT) (22295) Antimicrobial MIHEAD (Normal) Comments: S = Susceptible; [...] mL (Abnormal) Urine Final report Culture,Comprehensive (Abnormal) 68-Gce-032835:24 Urinalysis, Office (70495) UA - LEUKOCYTE ESTERASE Small (Normal) UA [...] 02-Feb-20157:28 Comprehensive Metabolic Profil Comments: Test performed at:[facility] [address] [place] [address] GAP 6 (Normal) Range: 5-15 CO2 29.0 [...] 70-110 :28 Lipid Profile Comments: Test performed at:[facility] [address] [place], [place] [address] ; non-emergent till apt VLDL 18 mg/dL [...] :35 CBC W/Diff, Automated Comments: Test performed at:[facility] [address] [place] [address] ; non- emergent till apt [...] Range: 4.4-11.0 :35 CRP Comments: Test performed at:[facility] [address] [place] [address] C-REACTIVE PROT 38.60 mg/L (Abnormal) Range: 0.0-3.0 Comments: C-Reactive Protein (CRP) provides useful information for thediagnosis, therapy and monitoring of inflammatory processesand associated diseases. For the evaluation of Relative Riskfor Cardiovascular Dise ase, a High Sensitivity CRP (HSCRP)should be ordered. 49-Jwv-87022:35 Culture, Urine Comments: Test performed at:[facility] [address] [facility] [place] [address] CUUR See Note (Normal) Comments: Urine CultureCulture exhibits no growth. :35 Erythrocyte Sed Rate Comments: Test performed at:[facility] [address] [facility] [place] [address] SED RATE 24 mm/h (Normal) Range: 0-30 79-Xvd-478552:11 URINE ALEX CULTURE-JASMINE COL Comments: PATIENT NOT FASTINGPERFORMED BY: [facility] [address] [place] [address] [id number] Information: SRC:[facility] [id number] COUNT (32019) Result 1 NG36 (Normal) Comments: No growth in 36 - 48 hours. Urine Culture,Comprehensive Final report (Normal) 83-Qca-829644:11 Urinalysis, Office (62675) UA - LEUKOCYTE ESTERASE Small (Normal) UA - NITRITE Negative (Normal) URINE UROBILINGN JASMINE TIMED Normal mg/dL (Normal) UA - PROTEIN Trace mg/dL (Normal) UA - PH 6 (Abnormal) UA - BLOOD non-hemolyzed trace (Normal) UA - SPECIFIC GRAVITY 1.020 (Normal) UA - KETONES Negative mg/dL (Normal) UA - BILIRUBIN Negative (Normal) UA - GLUCOSE Negative (Normal) 19-Mww-109172:57 V-Zoster IgG (Immunity) Comments: Test performed at:[facility] [address] [facility] [place] [address] VZOST IgG 00056 1894 {index} (Normal) Comments: Negative <135 Equivocal 135 - 165 Positive >165A positive result generally indicates exposure to thepathogen or adm inistration of specific immunoglobulins,but it is not indication of active infection or stageof disease.Performed at: [facility] [address] [id number] Director: Bernardino grady PhD, Phone: [phone]; ADDENDA: has been seen in office since drawn :48 CBC W/Diff, Automated Comments: Test performed at:[facility] [address] [place] [address] Absolute Lymph 1.40 {X10_3/ul} (Normal) [...] 4.2-5.4 WBC 4.3 K/mm3 (Abnormal) Range: 4.4-11.0 44-Pkz-11588:48 Comprehensive Metabolic Profil Comments: Test performed at:[facility] [address] [place] [address] GAP 4 (Abnormal) Range: 5-15 CO2 28.0 [...] 70-110 :48 Lipid Profile Comments: Test performed at:[facility] [address] [place] [address] VLDL 14 mg/dL (Normal) Range: 5-40 [...] Thyroid Stim Hormone (TSH) Comments: Test performed at:[facility] [address] [place] [address] TSH 1.57 {uIU/mL} (Normal) Range: 0.358-3.74 [...] CHOL 151 mg/dL (Normal) Comments: <200 mg/dL Kadqycxlg412-503 mg/dL Borderline>240 mg/dL High Risk :23 VZG 2963 {index} (Normal) Comments: Negative <135Equivocal 135 - 165Positive >165A positive result generally indicates exposure to thepathogen or administration of specific immunoglobulins,but it is not indicati on of active infection or stageof disease.Performed at: - [facility] [id number] Director: Bernardino Camargo PhD, Phone: [phone]; ADDENDA: normal and pt has apt tomorrow [...] CHOL 151 mg/dL (Normal) Comments: <200 mg/dL Qfpgsdjcx255-115 mg/dL Borderline>240 mg/dL High Risk :17 VITD [...] CHOL 127 mg/dL (Normal) Comments: <200 mg/dL Nzsbjgexd869-067 mg/dL Borderline>240 mg/dL High Risk :49 CBCMD [...] CHOL 129 mg/dL (Normal) Comments: <200 mg/dL Wyhnvmbnq921-259 mg/dL Borderline>240 mg/dL High Risk HDL 48 [...] 250 nm ol/L)Toxicity >100 ng/mL (250 nmol/L)Effective 201225-Jun-201235-Qrn-502467:32 URINE ALEX CULTURE (JASMINE Comments: PATIENT NOT FASTINGPERFORMED BY: [facility]twisp4136 [facility] [id number] Information: SRC:MARIELLE [id number] COL COUNT) (59352) Result 1 CNSNSS (Normal) Comments: Coagulase negative Staphylococcus species, not Staphylococcussaprophyticus.100 Colonies/mL .Based on resistance to penicillin and susceptibility to o xacillinthis isolate would be susceptible to:* Penicillinase-stable penicillins; such as: Cloxacillin Dicloxacillin Nafcillin* Beta-lactam/beta-lactamase inhibitor combinations; such as: [place] xicillin-clavulanic acid Ampicillin-sulbactam* Antistaphylococcal cephems; such as: Cefaclor Cefuroxime* Antistaphylococcal carbapenems; such as: Imipenem Meropenem S = Susceptibl e; I = Intermediate; R = Resistant P = Positive; N = Negative MICS are expressed in micrograms per mL Antibiotic RSLT#1 RSLT#2 RSLT#3 RSLT#4 Ciprofloxacin SGentamicin SLevofloxacin SNitrofurantoin SOxacillin SPenicillin RRifampin STetracycline STrimethoprim/Sulfa SVancomycin S Urine Final report Culture,Comprehensi (Normal) ve 49-Qjz-618493:35 Urinalysis, Office (97642) UA - BILIRUBIN Negative (Normal) UA - BLOOD Hemolyzed Large (Normal) UA - GLUCOSE Negative (Normal) UA - KETONES Small mg/dL (Normal) UA - LEUKOCYTE ESTERASE Large (Normal) UA - NITRITE Negative (Normal) UA - PH 7.0 (Normal) UA - PROTEIN 100 mg/dL (Normal) UA - SPECIFIC GRAVITY 1.020 (Normal) URINE UROBILINGN JASMINE TIMED Normal mg/dL (Normal) 9-Ruj-358768:19 Urinalysis, Office (95003) UA - BILIRUBIN Negative (Normal) UA - BLOOD Hemolyzed Trace (Normal) UA - GLUCOSE Negative (Normal) UA - KETONES Negative mg/dL (Normal) UA - LEUKOCYTE ESTERASE Negative (Normal) UA - NITRITE Negative (Normal) UA - PH 7.5 (Normal) UA - PROTEIN Negative mg/dL (Normal) UA - SPECIFIC GRAVITY 1.015 (Normal) URINE UROBILINGN JASMINE TIMED Normal mg/dL (Normal) 9-Ftr-756972:11 URINE ALEX CULTURE-IDENTIFICATN Comments: PATIENT NOT FASTINGPERFORMED BY: [facility] Oiwqhp7152 [facility] [id number] Information: [id number] (92265) Result 1 NG36 (Normal) Comments: No growth [...] >240 mg/dL High Risk :33 [facility] 0 SEEN {/hpf} (Normal) [...] (Normal) UCLAR Clear (Normal) UCOL Yellow (Normal) :50 RIBS UNIL 2V NO CXR Radiology Report [...] IMPRESSION:No acute abnormality identified . Signed:Mikhail Palencia MDNov2011 at 5:31:33 PM [id number] Signed TP/TP If you are the referring physician and would like to consult with theradiologist who provided this inter pretation, please contact Mikhail Palencia MD at [phone]. If this radiologist is unavailable, you will bedirected to another radiologist to assist. If you are a patient with a question regarding this re port, pleasecontactyour referring physician directly. Professional Interpretation Provided By: [employer], Phone , These documents contain legally protected [...] 04/08/12 1738 Sign by: Mikhail Palencia MD 5-Xmv-422526:01 BILAT SCRN DIGITAL & CAD Radiology Report [...] Alonso M.D.March 05, 2012 at 2:05:30 PM [id number] Signed GP/GP If you are the referring physician and would like to consult with theradiologist who provided this interpretation, please contact Stuart Wills at [phone]. If this radiologist is unavailable, youwill be directed to another radiologist to assist. If you are a patient with a question regarding this report, pleasecontactyour referring physician directly. Professional Interpretation Provided By: [employer], Phone , These documents contain legally protected [...] destructionofthese documents. Dictated on 03/05/12 1301 by Chris Alonso MDranscribed on 03/05/12 1411 by ITS IMPORTSign by Michael Alonso MD on 03/05/12 1412 Sign by: Michael Alonso MD 05-Mar-20120:00 DEXA [...] as outlined above, according toWorldHealth Organization (WHO) crit carlos. Fracture risk is moderate. Reference Information:The T-score [...] Alonso M.D.March 05, 2012 at 2:52:24 PM [phone] Signed GP/GP If you are the referring physici an and would like to consult with theradiologist who provided this interpretation, please contact Stuart Wills at [phone]. If this radiologist is unavailable, youwill be directed to anot her radiologist to assist. If you are a patient with a question regarding this report, pleasecontactyour referring physician directly. Professional Interpretation Provided By: [employer], Phone , These documents contain legally protected [...] on 1457 Sign by: Michael Alonso MD 91-Pnu-91708:26 CBCEM Comments: This patient requested that [facility] send to you acopy of [...] PLATELETS (Normal) Comments: This patient requested that [facility] send to you acopy of their Yearly Employee Health Risk Assessment.A copy of this report is also given to the patient so theycan follow up with your office if they choose. :26 EMP Comments: This patient requested that [facility] [employer] send to you acopy of their Yearly [...] 7-18 GLU 81 mg/dL (Normal) Range: 70-110 11-Trr-41981:26 LIPID Comments: VITD WAS DRAWN YESTERDAY ON [...] Very High > or = 500 mg/dL 01-Mcs-23353:26 UAEM Comments: This patient requested that [facility] send to you acopy of [...] (Normal) UCLAR CLEAR (Normal) UCOL YELLOW (Normal) 44-Wov-823133:01 VITD 45.5 ng/mL (Normal) Range: 30.0-100.0 Comments: Vitamin D deficiency has been defined by the [place] and an Endocrine Society practice guideline as alevel of serum 25-OH vitamin D less than 20 ng/mL (1,2).The Endocrine Society went on to further define vitamin Dinsufficiency as a level between 21 and 29 ng/mL (2).1. IOM ([place] [employer]). 2010. Dietary reference intakes for calcium and D. [place]: The National Academies Press.2. Paxton CERON, Rojelio OSPINA, Cortney GARIBAY, et al. Evaluation, treatment, and prevention of vitamin D deficiency: an Endocrine Society clinical practice guideline. JCEM. 2010; 96(7): 1911-30.Performed at: [address] [place], [place] [id number] Director: Korin Harris MD, Phone: [phone] 56-Lvu-009048:34 HEPATOBILIARY IMAGING Radiology Report See Note (Normal) [...] radiologist regarding this report, please call our 31C1wyahrwg line @ Dictated on 05/31/11817 by Ehsan Vázquez DOTranscribed on 05/31/112030 by ITS IMPORTSign by Ehsan Vázquez DO on 05/31/112031 Sign by: Ehsan Vázquez DO 83-Ltq-835129:54 TOE(S),MIN 2 VIEWS Radiology Report See Note [...] regarding this rep ort, please call our 63J6exmyusw line @ Dictated on 05/30/11 1150 by ARNEL TORRESTranscribed on 05/30/112228 by ITS IMPORTSign by ARNEL TORRES on 05/30/112229 Sign by: ARNEL TORRES 65-Dbu-88462:21 GALLBLADDER Radiology Report See Note (Normal) Comments: [...] of the right kidney. The right kidn eaneroscvz09.6 x 4.7 x 4.0 cm. Normal renal [...] 05/02/11 1224 Sign by: MAIA SHELTON MD :02 CBCD,SMEAR DIFF Comments: appt 05/17/11 RED [...] 7-18 GLU 76 mg/dL (Normal) Range: 70-110 86-Ifx-379970:02 TROPONIN-I < 0.02 ng/mL (Normal) Comments: TROPONIN-I EXPECTED VALUES <0.05 NEGATIVE 0.06 - 0.59 AT RISK OF MS > OR = 0.60 SUGGEST MS 49-Bdi-34017:11 ANKLE,MIN 3 VIEWS Radiology Report See Note [...] on 12/14/10 1004 by ITS IMPORTSign by Bianca CUTLER MD,GISSELLE on 12/14/10 1005 Sign by: GISSELLE GONZALES MD 81-Fuj-91886:52 URINE ALEX CULTURE (JASMINE COL Comments: PATIENT NOT FASTINGPERFORMED BY: [facility] Wqzeqf4138 [facility] [id number] COUNT) (97085) Result 1 NG36 (Normal) Comments: No growth in 36 - 48 hours. Urine Culture,Comprehensive Final report (Normal) :07 Urinalysis, Office (50242) UA - BILIRUBIN Negative (Normal) UA - [...] CHOL 150 mg/dL (Normal) Comments: <200 mg/dL Mgbipqwkz025-999 mg/dL Borderline>240 mg/dL High Risk HDL 56 [...] CHOL 150 mg/dL (Normal) Comments: <200 mg/dL Tdqdtkdcc087-287 mg/dL Borderline>240 mg/dL High Risk LDH 160 [...] (Normal) Comments: Result: NEGATIVE COLOR YELLOW (Normal) 64-Dlm-314598:10 BILAT SCRN DIGITAL & CAD Radiology See Note Comments: Exam Number: [id number] MAMMOGRAPHY - BILATERAL SCREENING INDICATION:Routine annual screening [...] not delay biopsy of a clinicallysuspicious abnormality.ADDENDUM: [id number] HPBI/MDS MAMMOGRAPHY - BILATERAL SCREENING INDICATION:Routine annua [...] attach ing a ResultCode to this exam.ADDENDUM: [id number] HPBI/MDS Reported By: GISSELLE GONZALES M.D. 15-Hwc-295151:09 DEXA BONE DENSITY STUDY (HP) Radiology Report See Note Comments: Exam Number: [id number] CLINICAL:The patient is a 69-year-old female who is postmenopausal with pasthistory of hormone replacement therapy. History of fracture of M0mhbddg history of osteoporosis EXAMINA (Normal) TION:DUAL ENERGY X-RAY ABSORPTIOMETRY / DEXA. TECHNIQUE:Bone Density Measurements (BMD) of lumbar spine and bilateral hipswere obtained using a [employer] scanner. COMPARISON:March 24 999, October 29, 2002, [...] NIH Osteoporosis and Related Bone Diseases http://www.osteo.org2. [employer] Work[employer] [facility] Society for Clinical Densitometryhttp://www.iscd.org3. National Osteoporosis Foundation http://www.nof.org Reported By: GISSELLE GONZALES M.D. 24-Dec-19 VIT D,25 03833 39.0 ng/mL Range: 32.0-100.0 1012:08 (Normal) Comments: Recent studies consider the lower limit of 32.0 ng/mL to isabel threshold for optimal health.Sheng BURNETT. J Nutr. 2005 Jul;135(2):317- 22.Performed at: [facility] [place] [address]Lab Director: Korin Harris MD, Phone: [phone] 29-Oct-19 C DIF TOXIN/AG See Note Comments: C. DIFF ANTIGENS NEGATIVE 105:40 (Normal) 27-Kxa-03728:40 CUL STOOL/SHIG SHIGA-TOXIN See Note (Normal) Comments: [...] Crytosporidium parvum,Cyclospora, or Microsporidia.__ [facility] ORIGINAL REPORT ONFILE IN LAB CONTAINS ADDITIONAL TEST SITE INFORMATION. OVA/ PARASITES EXAM NO OVA, CYSTS, OR PARASITES FOUND. :40 WBC,STOOL See Note (Normal) Comments: FECAL WBCs NONE SEEN 57-Jes-287926:25 ABDOMEN/PELVIS WITH CONTRAST Radiology Report See Note (Normal) Comments: Exam Number: [id number] CLINICAL:This is a 68-year-old female patient with [...] SED RATE 48 mm/h (Abnormal) Range: 0-30 13-Zcr-489715:55 URINE ALEX CULTURE (JASMINE Comments: PATIENT NOT FASTINGPERFORMED BY: [facility] [id number] Information: SRC:UR H12033 COL COUNT) (35775) Result 1 NG36 (Normal) Comments: No growth in 36 - 48 hours. Urine Culture,Comprehensive Final report (Normal) 87-Ikl-378801:20 Urinalysis, Office (26595) UA - LEUKOCYTE ESTERASE Small (Normal) UA - NITRITE Negative (Normal) URINE UROBILINGN JASMINE TIMED 2 mg/dL (Normal) UA - PROTEIN Negative mg/dL (Normal) UA - PH 7.0 (Normal) UA - BLOOD Hemolyzed Trace (Normal) UA - SPECIFIC GRAVITY 1.015 (Normal) UA - KETONES Negative mg/dL (Normal) UA - BILIRUBIN Negative (Normal) UA - GLUCOSE Negative (Normal) 53-Nkj-30544:11 BREAST UNILATERAL US () Radiology Report See Note (Normal) Comments: Exam Number: [id number] CLINICAL:The patient is a 68-year-old female with [...] CHOL 147 mg/dL (Normal) Comments: <200 mg/dL Drmpjbqwk988-230 mg/dL Borderline>240 mg/dL High Risk :03 LIVER ALB 4.2 g/dL (Normal) Range: 3.4-5.0 ALK P 66 U/L (Normal) Range: 50-136 ALT 29 U/L (Normal) Range: 12-78 AST 20 U/L (Normal) Range: 15-37 D BILI 0.09 mg/dL (Normal) Range: 0.00-0.30 T BILI 0.30 mg/dL (Normal) Range: 0.00-1.00 T PROT 7.9 g/dL (Normal) Range: 6.4-8.2 91-Ghh-119285:41 Urinalysis, Office (87094) UA - LEUKOCYTE ESTERASE Trace (Normal) UA [...] Report See Note (Normal) Comments: Exam Number: [id number] CLINICAL: 68-year-old female with knee pain lateral [...] a full thickness radial tear of the net applications developer ior horn of the medial meniscus extending [...] last examination. Reported By: John Alcocer M.D. 8-Uga-949792:24 KNEE,4 OR MORE VIEWS (MT) Radiology Report See Note (Normal) Comments: Exam Number: [id number] CLINICAL:Pain X-RAY EXAMINATION RIGHT KNEE TECHNIQUE:4 view(s) [...] change. Osteopenia. Reported By: ARIADNA PERAZA M.D. 5-Qrg-006242:23 L/S SPINE,MIN 4 VIEWS (MT) Radiology Report See Note (Normal) Comments: Exam Number: [id number] CLINICAL:Low back pain, radiculopathy X-RAY EXAMINATION: LUMBAR [...] acute fracture. Reported By: ARIADNA PERAZA M.D. 2-Lrw-001425:00 EMP URINALYSIS BILIRUBIN URINE SeeNote (Normal) Comments: [...] Range: 0.2 - 1.0 COLOR YELLOW (Normal) 3-Tfe-255617:00 ROUTINE UA BILIRUBIN URINE SeeNote (Normal) Comments: [...] 0.2 EU/dl (Normal) Range: 0.2 - 1.0 06-Jan-20097:18 CBCD,SMEAR DIFF RED CELL MORPH SeeNote {NORMAL} [...] 6.4-8.2 URIC 4.3 mg/dL (Normal) Range: 2.6-6.0 61-Qus-20743:31 DEXA BONE DENSITY STUDY () Radiology Report See Note (Normal) Comments: Exam Number: [id number] BONE DENSITOMETRY HISTORYOsteopenia. TECHNIQUE Bone densitometry of the lumbar spine and both hips is now beingperformed. The best criteria for evaluation of osteoporosis is theT-value, which represents the comparison of the patient's bone mass leigh expected peak bone mass. For most patients, the mean T-value of U7onsxbhv L4 is used to evaluate the lumbar [...] density is measured at 7.2% less than te3399.The T-valu e of the right femoral neck is -2 which is in the range ofosteopenia.The T- value of the total right hip is -1.7 which is in the range ofosteopenia. IMPRESSIONThere is osteopenia of the lumbar spine and both hips. Reported By: GISSELLE GONZALES M.D. 93-Mxa-77759:54 BREAST UNILATERAL US () Radiology Report See Note (Normal) Comments: Exam Number: [id number] TARGETED LEFT BREAST ULTRASOUND HISTORYAbnormal mammogram. High-resolution [...] Greene's office and the office was called qy4880 hours December 22, 2008. Reported By: GISSELLE GONZALES M.D. 83-Ceu-767019:35 UNILAT LT DIAG DIGITAL & CAD Radiology Report See Note (Normal) Comments: Exam Number: [id number] MAMMOGRAM, UNILATERAL LEFT DIAGNOSTIC DIGITAL AND CAD [...] pa hector preferred to schedule the ultrasound forJu2008, rather than having it performed at the current time. FINAL ASSESSMENTNeed additional imaging evaluation. BIRADS Category 0. A letter regardi ng these results has been sent to the patient. This interpretation was rendered by a radiologist certified under theMammography Quality Standards Act of 1992 (MQSA). The mammograms werealso examined w [employer] computer-aided detection software ([employer] Reported By: GISSELLE GONZALES M.D. 00-Fgp-831955:30 BILAT SCRN DIGITAL & CAD Radiology Report See Note (Normal) Comments: Exam Number: [id number] MAMMOGRAM, BILATERAL SCREENING DIGITAL AND CAD HISTORYRoutine [...] mammograms werealso examined with computer-aided detection software ([employer].). Reported By: GISSELLE GONZALES M.D. 07-Lyo-192800:37 BMP BUN 15 mg/dL (Normal) Range: 7-18 [...] g/dL (Normal) Range: 6.4-8.2 :11 AT3 F/I 24556 AT3 AG, IMMUNOL 131 % (Abnormal) Range: 75-130 AT3 FUNCT 14403 131 % (Normal) Range: 75-135 :11 PROT C 288386 PROT C,[id number] 169 % (Abnormal) Range: 74-151 Comments: Performed At: [address] [id number] PROTEIN C [address] 106 % (Normal) Range: 70-140 :11 PROT S 425776 PROTEIN S, FREE 107 % (Normal) Range: 56-124 PROTEIN S, FUNC 82 % (Normal) Range: 60-145 PROTEIN S,TOTAL 137 % (Normal) Range: 58-150 :38 A-CARDIO 190060 Comments: ORDER ALSO STATES ANTIPHOSPHOLIPIDS, WHICH IS [...] mm/h (Normal) Range: 0-30 :38 FAC II 415764 Comments: ORDER ALSO STATES ANTIPHOSPHOLIPIDS, WHICH IS A SYNONYM OFANTICARDIOLIPIN FACTOR II,DNA Comment (Normal) Comments: NEGATIVENo mutation identified.Comment:A point mutation ([id number]) in the Factor II (prothrombin)gene is the [...] protein C and protein S. :38 FACVL 648259 Comments: ORDER ALSO STATES ANTIPHOSPHOLIPIDS, WHICH IS [...] , elevatedhomocysteine levels, or a Factor II/prothrombin mutation(P11822H). Contact you r local [facility] for information onhow to order the Factor II DNA test. 11-Jan-20088:38 LIPID CHOL 207 mg/dL (Abnormal) Comments: <200 [...] mg/dL VLDL 31 mg/dL (Normal) Range: 5-40 46-Ppb-610622:35 CULTURE, URINE URINE CULTURE See Note (Normal) Comments: Predominant colony type being a gram positive trevor, probableLactobacillus species. COLONY COUNT 50,000-80,000 ORGANISM 1: MIXED GRAM POSITIVE ORGANISMS 21-Zxd-602309:35 ROUTINE UA BILIRUBIN URINE SeeNote (Normal) Comments: [...] 0.2 EU/dl (Normal) Range: 0.2 - 1.0 07-Fsy-68663:48 Urinalysis, Office (64372) UA - BILIRUBIN Negative (Normal) UA - BLOOD Negative (Normal) UA - GLUCOSE Negative (Normal) UA - KETONES Negative mg/dL (Normal) UA - LEUKOCYTE ESTERASE Trace (Normal) UA - NITRITE Negative (Normal) UA - PH 6.5 (Normal) UA - PROTEIN Negative mg/dL (Normal) UA - SPECIFIC GRAVITY 1.005 (Normal) URINE UROBILINGN JASMINE TIMED 2 mg/dL (Normal) 6-Xht-996412:04 BILAT SCRN DIGITAL & CAD Radiology Report See Note (Normal) Comments: Exam Number: [id number] MAMMOGRAM, BILATERAL SCREENING DIGITAL AND CAD HISTORYRoutine [...] werea lso examined with computer-aided detection software ([employer].). Reported By: GISSELLE GONZALES M.D. 5-Szu-127210:41 DEXA BONE DENSITY STUDY (HP) Radiology Report See Note (Normal) Comments: Exam Number: [id number] BONE DENSITOMETRY HISTORYOsteopenia. TECHNIQUE Bone densitometry of [...] density is measured at 0.2% less than zc8430 and 0.1% more than in 2005. IMPRESSIONThere [...] 2.6-6.0 VLDL 21 mg/dL (Normal) Range: 5-40 09-Aiy-84706:19 EMP URINALYSIS BILIRUBIN URINE SeeNote (Normal) Comments: [...] 4234 Comments: DATE STARTED 05/12/07, TIME STARTED 599DATE ENDED 05/13/07, TIME ENDED 06 METANEPH,U24 64 {ug/24_hr} (Normal) Range: 35-460 METANEPHRINE,UR 41 ug/L (Normal) NORMETANEPH,U24 301 {ug/24_hr} (Normal) Range: 110-1050 NORMETANEPH,UR 194 ug/L (Normal) :00 VMA,U24 4143 Comments: DATE STARTED 05/12/07, TIME STARTED 599DATE ENDED 05/13/07, TIME ENDED 599 VMA,24UR 5.3 {mg/24_hr} (Normal) Range: 1.8-6.7 Comments: Performed At: [facility] [id number] VMA,UR 3.4 mg/L (Normal) :16 ALDOST,U24 4291 Comments: 24 H URINE TV = 2580 ML ALDOSTERONE,U24 3 {ug/24_hr} (Normal) Range: 2-21 Comments: 1 mo. 1 - 11 1- 12 mos. 1 - 22 1- 16 yrs. 2 - 16 Adult Ranges Normal diet 2 - 21 Low salt 17 - 44 High salt 0 - 14Performed At: [address] [id number] ALDOSTERONE,UR 1 ug/L (Normal) 04-Rho-729326:17 BRAIN/HEAD W/WO CONTRAST Radiology Report See Note (Normal) Comments: Exam Number: [id number] CT SCAN OF BRAIN HISTORYHeadache. Scans were [...] ethmoid sinusitis. Reported By: GISSELLE GONZALES M.D. :51 CBC With Differential/Platelet Comments: PERFORMED BY: [facility] Gjkper7412 [facility] [id number] Baso (Absolute) 0.1 {x10E3/uL} (Normal) Range: 0.0-0.2 [...] Comp. Metabolic Panel (14) Comments: [facility]FORMED BY: [facility] [id number] A/G Ratio 1.5 (Normal) Range: 1.1-2.5 Albumin, [...] Sedimentation 4 mm/h (Normal) Comments: PERFORMED BY: [facility] [id number] :51 Rate-Westergren Range: 0-30 4-Itq-655538:29 CULTURE, URINE URINE CULTURE See Note {CFU/mL} (Normal) Comments: COLONY COUNT >100,000 ORGANISM 1: ENTEROCOCCUS FAECALIS ENTEROCOCCUS FAECALIS: REACTION CIPROFLOXACIN GP $$$ <=0.5 S LEVOFLOXAC IN $$ <=1 S NITROFURANTOIN $ <=32 S PENICILLIN G (ENTEROCOCCUS) $$ 2 S TETRACYCLINE $$ <=1 S VANCOMYCIN $$ <=0.5 S 7-Mvw-298325:29 ROUTINE UA BILIRUBIN URINE SeeNote (Normal) Comments: [...] / SJ:chente 04/10/06 TC:4 REPORT SIGNED: YELENA LEOS 04/11/06 Plan of Care Name Dates Details Instructions Non-smoker : Eprescribed prescriptions (G8553) Indication: Non-smoker [...] EASY BRUISABILITY OF SKIN Planned Observations TSH (48948)Indication: Hypercholesterolemia On: :51 Request URINALYSIS, W/ MICRO (14753)Indication: Essential hypertension On: : Request MICROALBUMIN: CREATININE RATIO (17388) AND (51123)Indication: Essential hypertension On: :51 Request METABOLIC PANEL, COMPREHENSIVE (46400)Indication: Essential hypertension On: :51 Request LIPID PANEL (30162)Indication: Essential hypertension On: :51 Request CBC W/AUTO DIFF WBC (26894)Indication: Essential hypertension On: :51 Request Metabolic Panel, Basic (91370)Indication: Essential hypertension On: 72-Qjm-232197:32 Request Comments: 2 weeks Vitamin D Hydroxy (63671)Indication: Osteopenia On: :23 Request URINALYSIS, W/ MICRO (26178)Indication: Essential hypertension On: :23 Request CBC W/AUTO DIFF WBC (23531)Indication: Essential hypertension On: :23 Request METABOLIC PANEL, COMPREHENSIVE (41659)Indication: Essential hypertension On: :23 Request LIPID PANEL (97753)Indication: Hypercholesterolemia On: :22 Request SED RATE ERYTHROCYTE (52362)Indication: Abdominal pain, acute, generalized On: :47 Request C-REACTIVE PROTEIN (84239)Indication: Abdominal pain, acute, generalized On: :47 Request CBC with auto diff (32077)Indication: Abdominal pain, acute, generalized On: :46 Request URINALYSIS, W/ MICRO (41490)Indication: Essential hypertension On: :27 Request LIPID PANEL (96575)Indication: Hypercholesterolemia On: :27 Request METABOLIC PANEL, COMPREHENSIVE (66282)Indication: Essential hypertension On: 2-Uwa-392365:26 Request VARICELLA-ZOSTER ANTBODY (48221)Indication: Hypercholesterolemia On: 63-Ezy-792668:58 Request TSH (15074)Indication: Anxiety associated with depression On: :12 Request LIPID PANEL (44368)Indication: Hypercholesterolemia On: :12 Request CBC W/AUTO DIFF WBC (79217)Indication: Essential hypertension On: :12 Request METABOLIC PANEL, COMPREHENSIVE (16362)Indication: Essential hypertension On: :12 Request VARICELLA-ZOSTER ANTBODY (57447)Indication: screen On: 10-Uyy-306133:59 Request CBC WITH MANUAL DIFF (21992)Indication: Essential hypertension On: 46-Ydp-283602:59 Request LIPID PANEL (70303)Indication: Hypercholesterolemia On: 70-Qcr-749202:58 Request METABOLIC PANEL, COMPREHENSIVE (54042)Indication: Essential hypertension On: 19-Cpv-980628:58 Request Vitamin D Hydroxy (81667)Indication: Osteopenia On: :33 Request METABOLIC PANEL, COMPREHENSIVE (81986)Indication: Essential hypertension On: :33 Request LIPID PANEL (30122)Indication: Hypercholesterolemia On: :33 Request METABOLIC PANEL, COMPREHENSIVE (65910)Indication: Essential hypertension On: 87-Gws-64248:57 Request LIPID PANEL (83594)Indication: Hypercholesterolemia On: 69-Nlm-28999:56 Request Vitamin D Hydroxy (88381)Indication: Anxiety associated with depression On: 84-Jov-417234:51 Request CBC WITH MANUAL DIFF (34873)Indication: Essential hypertension On: :51 Request METABOLIC PANEL, COMPREHENSIVE (27832)Indication: Essential hypertension On: 73-Lxv-729659:51 Request TSH (53953)Indication: Anxiety associated with depression On: 57-Pdu-394226:51 Request LIPID PANEL (66510)Indication: Hypercholesterolemia On: 97-Dce-518091:50 Request CBC WITH MANUAL DIFF (63680)Indication: Essential hypertension On: :30 Request METABOLIC PANEL, COMPREHENSIVE (80177)Indication: Essential hypertension On: : Request LIPID PANEL (36032)Indication: Hypercholesterolemia On: : Request URINALYSIS, W/ MICRO (50242)Indication: Essential hypertension On: :08 Request CBC WITH MANUAL DIFF (73770)Indication: Essential hypertension On: :08 Request METABOLIC PANEL, COMPREHENSIVE (55199)Indication: Essential hypertension On: :06 Request LIPID PANEL (54240)Indication: Hypercholesterolemia On: :06 Request LIPID PANEL (70221)Indication: Hypercholesterolemia On: : Request CBC WITH MANUAL DIFF (76519)Indication: Essential hypertension On: :28 Request METABOLIC PANEL, COMPREHENSIVE (70333)Indication: Essential hypertension On: :28 Request METABOLIC PANEL, COMPREHENSIVE (95891)Indication: Essential hypertension On: 28-Vyu-515555:48 Request Vitamin D Hydroxy (54796)Indication: Depression On: 53-Qgg-201943:48 Request LIPID PANEL (78160)Indication: Hypercholesterolemia On: 74-Rxl-307685:47 Request CBC WITH MANUAL DIFF (83521)Indication: Other chest pain On: 14-Bzr-316414:19 Request METABOLIC PANEL, COMPREHENSIVE (22251)Indication: Other chest pain On: 63-Sxz-163415:18 Request ASSAY, TROPONIN, QUANTITATIVE (aka Troponin I) (24235)Indication: Other chest pain On: 66-Jci-157874:18 Request Comments: stat CALCIFEDIOL (35500)Indication: Eczema (Renamed from Dermatitis, eczematoid) On: 31-Wlo-494240:34 Request OVA & PARASITE DIR SMEAR (57543)Indication: Diarrhea (Renamed from D (diarrhea)) On: 99-Veq-649543:11 Request LEUKOCYTE COUNT, FECAL (80631)Indication: Diarrhea (Renamed from D (diarrhea)) On: 54-Exi-098279:10 Request C.Difficile, Stool (60207)Indication: Diarrhea (Renamed from D (diarrhea)) On: 06-Vzz-027421:10 Request ALEX CULTURE-STOOL (11207)Indication: Diarrhea (Renamed from D (diarrhea)) On: 20-Xaq-130508:10 Request SED RATE ERYTHROCYTE (00665)Indication: Abdominal pain, acute, left lower quadrant On: 35-Hnw-475796:10 Request C-REACTIVE PROTEIN (68567)Indication: Abdominal pain, acute, left lower quadrant On: 35-Frj-821860:10 Request URINALYSIS, W/ MICRO (50902)Indication: Abdominal pain, acute, left lower quadrant On: 32-Omj-919948:10 Request METABOLIC PANEL, COMPREHENSIVE (79258)Indication: Abdominal pain, acute, left lower quadrant On: 74-Ndj-979851:10 Request CBC WITH MANUAL DIFF (65653)Indication: Abdominal pain, acute, left lower quadrant On: 29-Oex-823787:10 Request METABOLIC PANEL, COMPREHENSIVE (80515)Indication: Essential hypertension On: 55-Gaa-597528:47 Request HEPATIC FUNCTION PANEL (97363)Indication: Hypercholesterolemia On: 36-Ngj-165038:47 Request LIPID PANEL (65943)Indication: Hypercholesterolemia On: 52-Ncn-649839:47 Request Vitamin D Hydroxy (34532)Indication: Osteopenia On: 95-Xyp-076999:46 Request LIPID PANEL (47283)Indication: Hypercholesterolemia On: :38 Request HEPATIC FUNCTION PANEL (13637)Indication: Hypercholesterolemia On: :38 Request Metabolic Panel, Basic (04976)Indication: DISORDERS, ORGANIC, SLEEP RELATED LEG CRAMPS On: 66-Vrv-568812:17 Request URINALYSIS W/O MICRO (97515)Indication: Essential hypertension On: :48 Request TSH (75378)Indication: Essential hypertension On: 2-Zvt-511074:48 Request METABOLIC PANEL, COMPREHENSIVE (90898)Indication: Essential hypertension On: :48 Request CBC WITH MANUAL DIFF (56282)Indication: Essential hypertension On: :48 Request LIPID PANEL (90794)Indication: Hypercholesterolemia On: 6-Vib-762487:48 Request CBC WITH MANUAL DIFF (26441)Indication: Anemia, unspecified On: :51 Request LIPID PANEL (42590)Indication: Hypercholesterolemia On: :31 Request HEPATIC FUNCTION PANEL (76950)Indication: Hypercholesterolemia On: :41 Request LIPID PANEL (89080)Indication: Hypercholesterolemia On: :41 Request SED RATE ERYTHROCYTE (29729)Indication: Headache (Renamed from Cephalalgia) On: :40 Request METABOLIC PANEL, COMPREHENSIVE (36786)Indication: Headache (Renamed from Cephalalgia) On: :39 Request CBC WITH MANUAL DIFF (08815)Indication: Headache (Renamed from Cephalalgia) On: :39 Request CBC WITH MANUAL DIFF (14979)Indication: EASY BRUISABILITY OF SKIN On: :59 Request PTT (ACTIVATED PARTIAL THROMBOPLASTIN TIME) (61144)Indication: EASY BRUISABILITY OF SKIN On: :59 Request PT (PROTHROMBIN TIME) (44350)Indication: EASY BRUISABILITY OF SKIN On: :59 Request HEPATIC FUNCTION PANEL (14806)Indication: Hypercholesterolemia On: :54 Request LIPID PANEL (38976)Indication: Hypercholesterolemia On: :54 Request Planned Encounters Medical; 4 Month FU - On: 18-Apr-2018 10:30 Comprehensive Internal Medicine Catrina Perry DO, DO, Kathleen Planned Procedures CT OF NECK WITHOUT THEN WITH On: 09-Apr-2018 Intent INTRAVENOUS CONTRAST ([id number])By: Comments: include thyroid Acacia Whaley CNP Ultrasound - ThyroidBy: Jovana OJEDA, On: 09-Apr-2018 Intent Acacia Wang Comments: attetion soft tissue rt side of neck Flu Vaccine (Quadrivalent) [id number]: On: 13-Mar-2018 Intent Ladi aMx Comments: Lot #[id number]-L dltd, IMDose prefilled syringegiven by:SABINA Mclain reviewed and ABN signed FLAT PLATE ([id number])By: Jovana OJEDA, On: 19-Dec-2017 Intent Acacia Wang ELECTROCARDIOGRAM, COMPLETE (ECG) On: 12-Dec-2017 Intent ([id number])By: Catrina Perry DO Comments: nsr no acute chg Cartina Perry DO Bone Density StudyBy: Tessie Greene DO On: 10-May-2015 Intent A Comments: screening ADMINISTRATION OF INFLUENZA VIRUS On: 05-Feb-2015 Intent VACCINE ([id number])By: Tessie Greene DO Flu Vaccine (Quadrivalent) [id number]: On: 05-Feb-2015 Intent Tessie Greene DO Comments: Lot:[id number]:09/01/15Dose:0.5mLRoute:IMSite:L DltdGiven By:MARTY signed MAMMOGRAM, SCREENING, BOTH BREAST On: 05-Feb-2015 Intent ([id number])By: Tessie Greene DO Comments: nov DEXA SCAN AXIAL SKELETON ([id number])By: On: 05-Feb-2015 Intent Tessie Greene DO Comments: nov Solu -Medrol Injection, 125 mg On: 09-Dec-2014 Intent ([id number])By: Acacia Whaley CNP Comments: lot:[id number]:route:IMdose:125MGsite: R glutGiven by: ROSANGELA Gamble MAMMOGRAM, SCREENING, BOTH BREAST On: 13-Mar-2014 Intent ([id number])By: Tessie Greene DO ADMINISTRATION OF INFLUENZA VIRUS On: 13-Mar-2014 Intent VACCINE ([id number])By: Tessie Greene DO FLU VAC, SPLIT, >3 YEARS, INTRAMUSC On: 13-Mar-2014 Intent ([id number])By: Tessie Greene DO Comments: lot: [id number]: 12-01-13site/route: L del/IMamt: 0.5mLVIS signed when applicableROSANGELA Villa Eprescribed prescriptions ([id number])By: On: 16-Sep-2013 Intent Tessie Greene DO Eprescribed prescriptions ([id number])By: On: 18-Mar-2013 Intent Libby Herndon FLU VAC, SPLIT, >3 YEARS, INTRAMUSC On: 20-Feb-2013 Intent ([id number])By: Fallon Carranza Comments: Lot:[id number]:Dose:0.5mLRoute:IMSite:L DltdGiven By:MARTY signed IMMUNIZ ADMNIN, 1 VAC, SNGL/COMBO On: 20-Feb-2013 Intent ([id number])By: Fallon Carranza MAMMOGRAM, SCREENING, BOTH BREASTS On: 31-Dec-2012 Intent ([id number])By: Tessie Greene DO Eprescribed prescriptions ([id number])By: On: 11-Nov-2012 Intent Libby Herndon Eprescribed prescriptions ([id number])By: On: 23-Sep-2012 Intent Libby Herndon EKG ([id number])By: Libby Herndon On: 21-Aug-2012 Intent Comments: ekg showed normal sinus rhythym, normal axis, no acute st/t wave changes Eprescribed prescriptions ([id number])By: On: 25-Jun-2012 Intent Tanya Bermudez LPN PNEUM VAC ADLT/IMUMNOSPR, SBC/INTRM On: 03-May-2012 Intent ([id number])By: Tessie Greene DO Comments: Lot:[id number]:3--14Dose:0.5mLRoute:IMSite:L armGiven By:AGA ADMINISTRATION OF PNEUMOCOCCAL On: 03-May-2012 Intent VACCINE ([id number])By: Tessie Greene DO Eprescribed prescriptions ([id number])By: On: 03-May-2012 Intent Libby Herndon Cnziecllu-Mwb-Hqglu ([id number])By: Ciesa On: 08-Apr-2012 Intent RUSTY Lori DXA, BONE DENSITY, AXIAL SKELETON On: 30-Jan-2012 Intent ([id number])By: Tessie Greene DO MAMMOGRAM, SCREENING, BOTH BREASTS On: 30-Jan-2012 Intent ([id number])By: Tessie Greene DO IMMUNIZ ADMNIN, 1 VAC, SNGL/COMBO On: 30-Jan-2012 Intent ([id number])By: Megan Phillips LPN Comments: Lot/Exp: [id number], 11/2011Given in L Dltd, IMPrefilled SyringeBy ROEL Guzman FLU VAC, SPLIT, >3 YEARS, INTRAMUSC On: 30-Jan-2012 Intent ([id number])By: Megan Phillips LPN Breast Screening - BilateralBy: Fast On: 30-Jan-2012 Intent Tessie BROUSSARD Eprescribed prescriptions ([id number])By: On: 11-Jul-2011 Intent Acacia Whaley CNP Radiology - Toe(s) - LeftBy: Fast On: 30-May-2011 Intent DO, Tessie A Nuclear Medicine - HIDA w/CPKBy: On: 05-May-2011 Intent Fast DO, Tessie A Ultrasound - GallbladderBy: Fast DO, On: 01-May-2011 Intent Tessie A Comments: please do tomorrow Cartoid DopplerBy: Fast DO, Tessie A On: 01-May-2011 Intent EKG ([id number])By: Libby Herndon On: 01-May-2011 Intent Comments: ekg showed normal sinus rhythym, normal axis, no acute st/t wave changes poor r wave progression unchanged TDAP VACCINE >7 IM ([id number])By: On: 01-May-2011 Intent Libby Herndon Comments: work FLU VAC, SPLIT, >3 YEARS, INTRAMUSC On: 01-May-2011 Intent ([id number])By: Libby Herndon Comments: work DXA, BONE DENSITY, AXIAL SKELETON On: 09-Feb-2011 Intent ([id number])By: Monserrat Granado LPN MAMMOGRAM, SCREENING, BOTH BREASTS On: 09-Feb-2011 Intent ([id number])By: Monserrat Granado LPN Radiology - Ankle - LeftBy: Ciesa On: 14-Dec-2010 Intent RUSTY Lori Comments: call wet read to Acacia Whaley Eprescribed prescriptions ([id number])By: On: 15-Nov-2010 Intent Fast DO, Tessie A CT - Abdomen & PelvisBy: Fast DO, On: 26-Oct-2009 Intent Tessie A Comments: tomorrow call wet read EKG ([id number])By: Libby Herndon On: 30-Aug-2009 Intent Comments: do at hospital Venous Doppler - RightBy: Fast DO, On: 03-Feb-2009 Intent Tessie A Comments: tomorrow- call wet read Radiology - Lumbar SpineBy: Fast DO, On: 03-Feb-2009 Intent Tessie A Radiology - Knee - Right - Weight On: 03-Feb-2009 Intent BearingBy: Fast DO, Tessie A Doppler Ultrasound OtherBy: Vicky On: 18-Sep-2008 Intent Catrina BROUSSARD DO, Kathleen Comments: lower extrem Stress EchocardiogramBy: Fast DO, On: 07-Jun-2007 Intent Tessie Soler EKG ([id number])By: Tessie Greene DO On: 28-Apr-2007 Intent Comments: ordered to be done at the hospital CT - Brain/HeadBy: Tessie Greene DO On: 20-Mar-2007 Intent Comments: with and without contrast- please do stat and call wet read IMMUNIZ ADMNIN, 1 VAC, SNGL/COMBO On: 04-Apr-2006 Intent ([id number])By: Libby Herndon PNEUM VAC ADLT/IMUMNOSPR, SBC/INTRM On: 04-Apr-2006 Intent ([id number])By: Libby Herndno Comments: Lot #:Expiration date:Amount given:Route: IMSite given:LEFT DELTOIDGiven by: EDILMA Weinberg IMMUNIZ ADMNIN, 1 VAC, SNGL/COMBO On: 04-Apr-2006 Intent ([id number])By: Tessie Greene DO PNEUM VAC ADLT/IMUMNOSPR, SBC/INTRM On: 04-Apr-2006 Intent ([id number])By: Tessie Greene DO Planned Medications INJECTION, METHYLPREDNISOLONE SODIUM SUCCINATE, UP TO 125 MG Ordered: 09-Dec-2014 Pending Acacia Whaley CNP Instructions Name Dates Details Non-smoker : How to access health information [...] : Patient Instructions Indication: Essential hypertension Encounters Annotation/Addendum On: 12-Apr-2018 8:45 Encounter Diagnosis: Palpable [...] The patient does have durable power of admitted attorneys and living will. The patient has noticed [...] The patient does have durable power of admitted attorneys and living will. The patient has noticed nothing from the geriatic depre ssion scale. Other providers contributing to the patient's care are other: (hearing and eye drLatrell herrera and Dr. Zamora). Note for Annual Medicare Exam: NO labwork done for today and pt had her well woman exam done with [employer].-weight down trying - her bp up little [...] she hasnt needed too- more active in sikh and that has h elped- no gerd [...] thinks helping- going every6 w eeks- saw SHriner- got bone density- back better and one [...] effective than benicar- she said mood in [facility] is reasonable- doesnt want to change- [...] to get back on track and joining [employer] at [employer]- her mood is pretty good and brother in hospice care but less stress than before- no gerd - rufino sahni , [ADDITIONAL REASON] Follow up, Laboratory [...] with welbutrin more energy and 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 Nichole at [facility]). 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
--- OUTSIDE RECORDS SUMMARY | 2018-08-24 15:48 | XMS RPT_ITS | Continuity of Care Document ---
:1940 External Reference #:[id number] Author Organization [facility] Address [address] [place] [address] Phone Care Team Providers Name Role Phone Catirna Perry DO Unavailable Ricardo Rollins MD Unavailable Dr. Addison Kimball Unavailable [facility] PLASCENCIA, Dr. Janes Dougherty Unavailable Sadia Goel Unavailable Unavailable Carli Marks Unavailable Unavailable Libby Herndon Unavailable Unavailable Fallon Carranza Unavailable Unavailable Balance Wheel Facer, System Unavailable Unavailable Carolin Garber LPN Unavailable [...] 1 qd (20 MG) Active CITRACAL MAXIMUM, [id number] (Oral Tablet) 1 tab bid (315-250 MG-UNIT) [...] Quantity: 28 {Tablet} Refills: 0 Ordered:07-Sep-2010 Acacia Whaely CNP Start : 07-Sep-2010 End : 21-Sep-2010 [...] WITH Contrast Result: Comments: See Note; NOTES: [facility] Imaging Services [address] [place] [address] Soft Tissue Neck WITH Contrast MR#: [id number] Acct: [id number] Name: HERMAN LEONARD Rep #: [id number] : 1940 F 77 From: Michael Alonso MD PCP: Catrina Perry DO Status: REG CLI Study: Soft Tissue Neck WITH Contrast Date of Exam: 04/10/18 Exam# [id number] Ordering Dr: Acacia Whaley STUDY: CT SOFT [...] FINDINGS: Normal bilateral parotid glands. Normal bilateral licensed therapist spaces. Normal bilateral parapharyngeal spaces. Normal bilateral [...] Alonso MD 04/10 at 15:37 EST Tel [phone], Service support , CC: Acacia Whaley NP; Catrina Perry DO Document Preparation Specialist: Signed 10-Apr-2018 Soft Tissue Neck WITH Contrast Result: Comments: See Note; NOTES: [facility] Services [address] [place] [address] Soft Tissue Neck WITH Contrast MR#: [id number] Acct: [id number] Name: HERMAN LEONARD Rep #: [id number] : 1940 F 77 From: Michael Alonso MD PCP: Catrina Perry DO Status: REG CLI Study: Soft Tissue Neck WITH Contrast Date of Exam: 04/10/18 Exam# [id number] Ordering Dr: Acacia Whaley PJesus ADDENDUM by [...] Michael Alonso MD at 8:47 EST Tel [phone], Service support , 04/11/18 0847 Date cc : Acacia Whaley NP; Catrina Perry DO * Signed ADDENDUM by Michael Alonso MD on 04/11/[address]/Soft Tissue Neck WITH Contrast 04/11/18 0854 Date cc: Acacia Willis sa FREEZER WORKER; Catrina Perry DO * Signed STUDY: [...] FINDINGS: Normal bilateral parotid glands. Normal bilateral licensed therapist spaces. Normal bilateral parapharyngeal spaces. Normal bilateral [...] Michael Alonso MD at 15:37 EST Tel [phone], Service support , CC: Acacia Whaley NP; Catrina Perry DO Document Preparation Specialist: Signed 09-Apr-2018 Thyroid Result: Comments: See Note; NOTES: [facility] Services [address] [place] [address] Thyroid MR#: [id number] Acct: [id number] Name: HERMAN LEONARD Rep #: [id number] : [birth year] F 77 From: Michael Alonso MD PCP: Catrina Perry DO Status: REG CLI Study: Thyroid Date of Exam: 04/09/18 Exam# [id number] Ordering Dr: Acacia Whaley FREEZER WORKERJesus STUDY: THYROID ULTRASOUND REASON FOR EX [...] Alonso MD at 15:[address] Tel [phone], Service support , CC: Acacia Whaley FREEZER WORKER; Catrina Perry DO Document Preparation Specialist: Signed 19-Dec-2017 Abdomen Single View Result: Comments: See Note; NOTES: [facility] Services [address] [place] [address] Abdomen Single View MR#: [id number] Acct: [id number] Name: HERMAN LEONARD Rep #: [id number] D OB: 1940 F 76 From: Chris Rachel MD PCP: Catrina Perry DO Status: REG CLI Study: Abdomen Single View Date of Exam: 12/19/17 Exam# [id number] Ordering Dr: Acacia Whaley STUDY: X-RAY - [...] CC: Acacia Whaley NP; Catrina Perry DO Document Preparation Specialist: Signed 20-May-2015 Dexa Bone Density Study (HP) Result: Comments: See Note; NOTES: [facility] Services [address] [place] [address] Verdana 4d Dexa Bone Density Study () MR#: [id number] Acct: [id number] Name : HERMAN LEONARD Rep #: [id number] : 1940 F 74 From: Michael Alonso MD PCP: Tessie Greene DO Status: REG CLI Study: Dexa Bone Density Study () Date of Exam: 05/20/15 Exam# [id number] Zulema carney Dr: Tessie Greene DO STUDY: [...] Michael Alonso MD at 10:30 EST Tel [phone], Service support [phone], CC: Jailyn Yang MD; Tessie Greene DO Document Preparation Specialist: Signed 06-Apr-2015 Bilat Scrn Digital AND CAD Result: Comments: See Note; NOTES: [facility] Services [address] [place] [address] Verdana 4d Bilat Scrn Digital AND CAD MR#: [id number] Acct: [id number] Name: HERMAN LEONARD Rep #: [id number] : 1940 F 74 From: Michael Alonso MD PCP: Tessie Greene DO Status: REG CLI Study: Bilat Scrn Digital AND CAD Date of Exam: 04/06/15 Exam# [id number] Ordering D r: Tessie Greene DO MAMMOGRAPHY [...] Michael Alonso MD at 7:54 EST Tel [phone], Service support [phone], CC: Tessie Greene DO Document Preparation Specialist: Signed 05-Feb-2015 EKG (14335) Comments: ekg showed normal sinus rhythym, normal axis, no acute st/t wave changes Result: [MEASUREMENTS ANALYSIS] Date of Test: 02/05/2015 09:47:50; Heart Rate: 58; SC Interval: 156; QRS: 93; QT Interval: 420; Corrected QT Interval (QTc): 417; P Wave Embudo: 31; QRS Wave Embudo: 31; T Wave Embudo: 44; Blood Pressure: 122/84 [ECG DIAGNOSTIC STATEMENTS] Date of Test: 02/05/2015 09:47:50; Summary: Sinus Bradycardia WITHIN NORMAL LIMITS 27-Mar-2014 Bilat Scrn Digital & CAD Result: Comments: See Note; NOTES: [facility] Imaging Services [address] [place] [address] Breast Imaging Report MR#: [id number] Acct: [id number] Name: HERMAN LEONARD Rep #: [id number] : 1940 F 73 From: Michael Alonso MD PCP: Tessie Greene DO Status: REG CLI Exam# [id number] Ordering Dr: Tessie Greene DO MAMMOGRAPHY - [...] Michael Alonso MD at 9:36 EDT Tel [phone], Service support [phone], CC: Tessie Greene DO Document Preparation Specialist: Signed 26-Mar-2013 Db Carranza Digital & CAD Result: Comments: See Note; NOTES: [facility] Services [address] [place] [address] Breast Imaging Report MR#: [id number] Acct: [id number] Name: HERMAN LEONARD Rep #: [id number] : 1940 F 72 From: Michael Alonso MD PCP: Tessie Greene DO Status: REG CLI Exam# [id number] Ordering Dr: Tessie Greene DO MAMMOGRAPHY - [...] March 26, 2013 at 2:33:33 PM EDT [phone] Electronically Signed GP/GP If you are the referring physician and would like to consult with the radiologist who pr ovided this interpretation, please contact Michael Alonso M.D. at [phone]. If this radiologist is unavailable, you will be directed to another radiologist to assist. If you are a patient w ith a question regarding this report, please contact your referring physician directly. Professional Interpretation Provided By: IndexTank, Phone , These documents contain legally protected [...] of these documents. CC: Tessie Greene DO Document Preparation Specialist: Signed Immunization Name Dates Details Pneumococcal (2 years and up) on: 04-Apr-2006 Pneumococcal (2 years and up) on: 04-Apr-2006 Comments: Lot #:Expiration date:Amount given:Route: IMSite given:LEFT DELTOIDGiven by: EDILMA Weinberg Family History Unknown Family Member Name Dates Details Father Comments: PA Status: Active Mother Comments: CHF Status: Active Paternal Grandmother Comments: ABD CA Status: Active Social History Name Dates Details Alcohol Use Comments: Occasional alcohol use Status: Active Non Smoker/No Tobacco Use Status: Active Tobacco use: Never smoker. Status: Active Smoking Status Name Dates Details Never smoker Vital Signs Date Test Result Details 3-Mgq-714084:59 Temperature 97.4 f Comments: Method: Temporal Pulse [...] Description Value Details :47 CREATININE FINGERSTICK Comments: [facility] [place] [address] [place], [place] [address] EGFR WB > 60.0000 mL/min (Normal) CREATININE WB 0.8 mg/dL (Normal) Range: 0.55-1.02 :40 Bilirubin, Direct Comments: Order Date: 03/13/17Order Info: 0788- [id number] - *Hepatic Function PanelOrder Info: [id number] - *Lipid Profile CC PCPComments: 12 hours fasting, may have water.DR PÉREZ ORDERED LIPID/LIVERDR VICKY ORDERED TS H/CBCD/LIPID/CMP/UA/[facility] [address] [place], [place], [address] D BILI 0.11 mg/dL (Normal) Range: 0.00-0.30 :40 CBC W/Diff, Automated Comments: DR PÉREZ ORDERED LIPID/LIVERDR PERRY ORDERED TSH/CBCD/LIPID/CMP/UA/[facility] [address] [place], [place], [id number] SMEAR COMMENT SCANNED (Normal) Absolute Lymph 2.16 [...] 4.2-5.4 WBC 5.8 K/mm3 (Normal) Range: 4.4-11.0 09-Xdg-85471:40 [facility] Met[facility] Comments: Order Date: 03/13/17Order Info: 0788-1 - *Hepatic Function PanelOrder Info: 00024-0 - *Lipid Profile CC PCPComments: 12 hours fasting, may have water.DR PÉREZ ORDERED LIPID/LIVERDR VICKY ORDERED TS Profil H/CBCD/LIPID/CMP/UA/[facility] [address] [place], [address] GAP 5 (Normal) Range: 5-15 CO2 32.0 [...] Comments: Please note revised GLUCOSE reference range dotjcooae81/02/2018. 65-Bpx-01384:40 Lipid Profile Comments: Order Date: 03/13/17Order Info: 0788-1 - *Hepatic Function PanelOrder Info: 20065-7 - *Lipid Profile CC PCPComments: 12 hours fasting, may have water.DR PÉREZ ORDERED LIPID/LIVERDR PERRY ORDERED TS H/CBCD/LIPID/CMP/UA/[facility] [address] [place], [place], [address] VLDL 11 mg/dL (Normal) Range: 5-40 LDL [...] Comments: DR PÉREZ ORDERED LIPID/JUNIOR PERRY ORDERED TSH/CBCD/LIPID/CMP/UA/[facility] [address] [place], [address] Ratio,Random UR MALB:CREAT 9.7 {mg/g_CRE} (Normal) MICROALBUMIN,UR 5.3 mg/L (Normal) UR CREAT 55.10 mg/dL (Normal) :40 Thyroid Stim Hormone Comments: Order Date: 03/13/17Order Info: 0788-1 - *Hepatic Function PanelOrder Info: 99231-3 - *Lipid Profile CC PCPComments: 12 hours fasting, may have water.DR PÉREZ ORDERED LIPID/LIVERDR PERRY ORDERED TS (TSH) H/CBCD/LIPID/CMP/UA/[facility] [address] [place], [address] TSH 1.84 {uIU/mL} (Normal) Range: 0.358-3.74 75-Zpg-77259:40 Urinalysis, Complete Comments: DR PÉREZ ORDERED LIPID/LIVERDR VICKY ORDERED TSH/CBCD/LIPID/CMP/UA/MIACREHow was Urine Obtained? [facility] [address] [place], [place], [address] MUCUS, URINE 0 SEEN {/hpf} (Normal) BACTERIA [...] (Normal) CLARITY Clear (Normal) COLOR Yellow (Normal) 85-Xar-991196:44 URINE ALEX CULTURE-IDENTIFICATN Comments: PATIENT NOT FASTINGPERFORMED BY: [facility] [facility] [id number] Information: [id number] (10615) Result 1 CNSNSS (Abnormal) Comments: Coagulase negative [...] S Urine Final report Culture,Compreh (Abnormal) ensive 48-Kun-758616:10 Urinalysis, Office (86247) UA - LEUKOCYTE ESTERASE Small (Normal) UA - NITRITE Negative (Normal) URINE UROBILINGN JASMINE TIMED Normal mg/dL (Normal) UA - PROTEIN Negative mg/dL (Normal) UA - PH 7 (Normal) UA - BLOOD non-hemolyzed trace (Normal) UA - SPECIFIC GRAVITY 1.015 (Normal) UA - KETONES Negative mg/dL (Normal) UA - BILIRUBIN Negative (Normal) UA - GLUCOSE Negative (Normal) 89-Okv-487974:16 Basic Metabolic Profile (BMP) Comments: [facility] [address] [place], [place], [address] ; will review at appt GAP 6 [...] 7-18 GLU 87 mg/dL (Normal) Range: 70-110 69-Wzp-991614:25 URINE ALEX CULTURE (JASMINE Comments: PATIENT NOT FASTINGPERFORMED BY: [facility] Gsignf[address] [facility] [id number] Information: SRC:[facility] [id number] COL COUNT) (71583) Result 1 NG36 (Normal) Comments: No growth in 36 - 48 hours. Urine Culture,Comprehensive Final report (Normal) 02-Wny-744283:44 Urinalysis, Office (45471) UA - LEUKOCYTE ESTERASE Negative (Normal) UA - NITRITE Negative (Normal) URINE UROBILINGN JASMINE TIMED Normal mg/dL (Normal) UA - PROTEIN Negative mg/dL (Normal) UA - PH 6.5 (Normal) UA - BLOOD Hemolyzed Trace (Normal) UA - SPECIFIC GRAVITY 1.010 (Normal) UA - KETONES Negative mg/dL (Normal) UA - BILIRUBIN Negative (Normal) UA - GLUCOSE Negative (Normal) 54-Qrb-932935:10 URINE ALEX CULTURE (JASMINE Comments: PATIENT NOT FASTINGPERFORMED BY: [facility] Zwmuul[address] Armenta RoadUNC Health [facility] [id number] Information: SRC:[facility] [id number] COL COUNT) (29171) Antimicrobial MIHEAD (Normal) Comments: S = Susceptible; [...] mL (Abnormal) Urine Final report Culture,Comprehensive (Abnormal) 38-Mxx-420076:24 Urinalysis, Office (92117) UA - LEUKOCYTE ESTERASE Small (Normal) UA [...] 02-Feb-20157:28 Comprehensive Metabolic Profil Comments: Test performed at:[facility] [address] [place] [address] GAP 6 (Normal) Range: 5-15 [...] Comments: Please note revised CREATININE reference range knkslalal31/22/2015. BUN 21 mg/dL (Abnormal) Range: 7-18 GLU 85 mg/dL (Normal) Range: 70-110 :28 Lipid Profile Comments: Test performed at:[facility] [address] [place], [place] [address] ; non-emergent till apt VLDL 18 mg/dL [...] :35 CBC W/Diff, Automated Comments: Test performed at:[facility] [address] [place] [address] ; non- emergent till apt [...] Range: 4.4-11.0 :35 CRP Comments: Test performed at:[facility] [address] [place] [address] C-REACTIVE PROT 38.60 mg/L (Abnormal) Range: 0.0-3.0 Comments: C-Reactive Protein (CRP) provides useful information for thediagnosis, therapy and monitoring of inflammatory processesand associated diseases. For the evaluation of Relative Riskfor Cardiovascular Dise ase, a High Sensitivity CRP (HSCRP)should be ordered. 49-Jfa-48014:35 Culture, Urine Comments: Test performed at:[facility] [address]xsby[address] [facility] [place] [address] CUUR See Note (Normal) Comments: Urine CultureCulture exhibits no growth. :35 Erythrocyte Sed Rate Comments: Test performed at:[facility] [address] [facility] [place] [address] SED RATE 24 mm/h (Normal) Range: 0-30 32-Rct-953466:11 URINE ALEX CULTURE-JASMINE COL Comments: PATIENT NOT FASTINGPERFORMED BY: [facility] [address] [place] [address] [id number] Information: SRC:[facility] [id number] COUNT (87813) Result 1 NG36 (Normal) Comments: No growth in 36 - 48 hours. Urine Culture,Comprehensive Final report (Normal) 30-Bsz-257369:11 Urinalysis, Office (78253) UA - LEUKOCYTE ESTERASE Small (Normal) UA - NITRITE Negative (Normal) URINE UROBILINGN JASMINE TIMED Normal mg/dL (Normal) UA - PROTEIN Trace mg/dL (Normal) UA - PH 6 (Abnormal) UA - BLOOD non-hemolyzed trace (Normal) UA - SPECIFIC GRAVITY 1.020 (Normal) UA - KETONES Negative mg/dL (Normal) UA - BILIRUBIN Negative (Normal) UA - GLUCOSE Negative (Normal) 96-Bgd-050604:57 V-Zoster IgG (Immunity) Comments: Test performed at:[facility] [address] [facility] [place] [address] VZOST IgG 62998 1894 {index} (Normal) Comments: Negative <135 Equivocal 135 - 165 Positive >165A positive result generally indicates exposure to thepathogen or adm inistration of specific immunoglobulins,but it is not indication of active infection or stageof disease.Performed at: [facility] [address] [id number] Director: Bernardino grady PhD, Phone: [phone]; ADDENDA: has been seen in office since drawn :48 CBC W/Diff, Automated Comments: Test performed at:[facility] [address] [place] [address] Absolute Lymph 1.40 {X10_3/ul} (Normal) [...] 4.2-5.4 WBC 4.3 K/mm3 (Abnormal) Range: 4.4-11.0 42-Xxm-16365:48 Comprehensive Metabolic Profil Comments: Test performed at:[facility] [address] [place] [address] GAP 4 (Abnormal) Range: 5-15 [...] 70-110 :48 Lipid Profile Comments: Test performed at:[facility] [address]cam[address] [place] [address] VLDL 14 mg/dL (Normal) Range: 5-40 [...] Thyroid Stim Hormone (TSH) Comments: Test performed at:[facility] [address] [place] [address] TSH 1.57 {uIU/mL} (Normal) Range: 0.358-3.74 [...] CHOL 151 mg/dL (Normal) Comments: <200 mg/dL Jmzpccxqi994-919 mg/dL Borderline>240 mg/dL High Risk :23 VZG 2963 {index} (Normal) Comments: Negative <135Equivocal 135 - 165Positive >165A positive result generally indicates exposure to thepathogen or administration of specific immunoglobulins,but it is not indicati on of active infection or stageof disease.Performed at: - [facility] [id number] Director: Bernardino Camargo PhD, Phone: [phone]; ADDENDA: normal and pt has apt tomorrow [...] CHOL 151 mg/dL (Normal) Comments: <200 mg/dL Vwclygvzf063-563 mg/dL Borderline>240 mg/dL High Risk :17 VITD [...] CHOL 127 mg/dL (Normal) Comments: <200 mg/dL Dxguclzpj758-247 mg/dL Borderline>240 mg/dL High Risk :49 CBCMD [...] CHOL 129 mg/dL (Normal) Comments: <200 mg/dL Trysltunx769-165 mg/dL Borderline>240 mg/dL High Risk HDL 48 [...] 250 nm ol/L)Toxicity >100 ng/mL (250 nmol/L)Effective 201225-Jun-201298-Hlv-269106:32 URINE ALEX CULTURE (JASMINE Comments: PATIENT NOT FASTINGPERFORMED BY: [facility]]Blmshh[address]86 [facility] [id number] Information: SRC:[facility] [id number] COL COUNT) (03657) Result 1 CNSNSS (Normal) Comments: Coagulase negative Staphylococcus species, not Staphylococcussaprophyticus.100 Colonies/mL .Based on resistance to penicillin and susceptibility to o xacillinthis isolate would be susceptible to:* Penicillinase-stable penicillins; such as: Cloxacillin Dicloxacillin Nafcillin* Beta-lactam/beta-lactamase inhibitor combinations; such as: Hamilton xicillin-clavulanic acid Ampicillin-sulbactam* Antistaphylococcal cephems; such as: Cefaclor Cefuroxime* Antistaphylococcal carbapenems; such as: Imipenem Meropenem S = Susceptibl e; I = Intermediate; R = Resistant P = Positive; N = Negative MICS are expressed in micrograms per mL Antibiotic RSLT#1 RSLT#2 RSLT#3 RSLT#4 Ciprofloxacin SGentamicin SLevofloxacin SNitrofurantoin SOxacillin SPenicillin RRifampin STetracycline STrimethoprim/Sulfa SVancomycin S Urine Final report Culture,Comprehensi (Normal) ve 51-Xnf-964374:35 Urinalysis, Office (81834) UA - BILIRUBIN Negative (Normal) UA - BLOOD Hemolyzed Large (Normal) UA - GLUCOSE Negative (Normal) UA - KETONES Small mg/dL (Normal) UA - LEUKOCYTE ESTERASE Large (Normal) UA - NITRITE Negative (Normal) UA - PH 7.0 (Normal) UA - PROTEIN 100 mg/dL (Normal) UA - SPECIFIC GRAVITY 1.020 (Normal) URINE UROBILINGN JASMINE TIMED Normal mg/dL (Normal) 0-Uyt-099732:19 Urinalysis, Office (41776) UA - BILIRUBIN Negative (Normal) UA - BLOOD Hemolyzed Trace (Normal) UA - GLUCOSE Negative (Normal) UA - KETONES Negative mg/dL (Normal) UA - LEUKOCYTE ESTERASE Negative (Normal) UA - NITRITE Negative (Normal) UA - PH 7.5 (Normal) UA - PROTEIN Negative mg/dL (Normal) UA - SPECIFIC GRAVITY 1.015 (Normal) URINE UROBILINGN JASMINE TIMED Normal mg/dL (Normal) 1-Yqf-372408:11 URINE ALEX CULTURE-IDENTIFICATN Comments: PATIENT NOT FASTINGPERFORMED BY: [facility] Mobdiw7096 [facility] [id number] Information: [id number] (12849) Result 1 NG36 (Normal) Comments: No growth [...] mg/dL Borderline >240 mg/dL High Risk :33 [facility] 0 SEEN {/hpf} (Normal) UBAC [...] . Signed:Mikhail Palencia MDNov2011 at 5:31:33 PM [id number] Signed TP/TP If you are the referring physician and would like to consult with theradiologist who provided this inter pretation, please contact Mikhail Palencia MD at [phone]. If this radiologist is unavailable, you will bedirected to another radiologist to assist. If you are a patient with a question regarding this re port, pleasecontactyour referring physician directly. Professional Interpretation Provided By: [employer], Phone , These documents contain legally protected [...] 04/08/12 1738 Sign by: Mikhail Palencia MD 8-Xnk-431106:01 BILAT SCRN DIGITAL & CAD Radiology Report [...] Alonso M.D.March 05, 2012 at 2:05:30 PM [id number] Signed GP/GP If you are the referring physician and would like to consult with theradiologist who provided this interpretation, please contact Stuart Wills at [phone]. If this radiologist is unavailable, youwill be directed to another radiologist to assist. If you are a patient with a question regarding this report, pleasecontactyour referring physician directly. Professional Interpretation Provided By: [employer], Phone , These documents contain legally protected [...] Alonso M.D.March 05, 2012 at 2:52:24 PM [id number] Signed GP/GP If you are the referring physici an and would like to consult with theradiologist who provided this interpretation, please contact Stuart Wills at [phone]. If this radiologist is unavailable, youwill be directed to anot her radiologist to assist. If you are a patient with a question regarding this report, pleasecontactyour referring physician directly. Professional Interpretation Provided By: [employer], Phone , These documents contain legally protected [...] on 1457 Sign by: Michael Alonso MD 00-Dve-36753:26 CBCEM Comments: This patient requested that [facility] [employer] send to you acopy [...] PLATELETS (Normal) Comments: This patient requested that [facility] [employer] send to you acopy of their Yearly Employee Health Risk Assessment.A copy of this report is also given to the patient so theycan follow up with your office if they choose. :26 EMP Comments: This patient requested that [facility] [employer] send to you acopy of their Yearly [...] 7-18 GLU 81 mg/dL (Normal) Range: 70-110 78-Trs-04316:26 LIPID Comments: VITD WAS DRAWN YESTERDAY ON [...] Very High > or = 500 mg/dL 62-Dur-71026:26 UAEM Comments: This patient requested that [facility] [employer] send to you acopy [...] (Normal) UCLAR CLEAR (Normal) UCOL YELLOW (Normal) 49-Nyv-613839:01 VITD 45.5 ng/mL (Normal) Range: 30.0-100.0 Comments: Vitamin D deficiency has been defined by the [place] ofMedicine and an Endocrine Society practice guideline as alevel of serum 25-OH vitamin D less than 20 ng/mL (1,2).The Endocrine Society went on to further define vitamin Dinsufficiency as a level between 21 and 29 ng/mL (2).1. IOM ([place] of Medicine). 2010. Dietary reference intakes for calcium and D. [place]: The National Academies Press.2. Paxton CERON, Rojelio OSPINA, Cortney GARIBAY, et al. Evaluation, treatment, and prevention of vitamin D deficiency: an Endocrine Society clinical practice guideline. JCEM. 2010; 96(7): 1911-30.Performed at: [address] [place], [place] [id number] Director: Korin Harris MD, Phone: [phone] 42-Wwr-584312:34 HEPATOBILIARY IMAGING Radiology Report See Note (Normal) [...] radiologist regarding this report, please call our 21A1uaxxagr line @ Dictated on 05/31/11817 by Ehsan Vázquez DOTranscribed on 05/31/112030 by ITS IMPORTSign by Ehsan Vázquez DO on 05/31/112031 Sign by: Ehsan Vázquez DO 04-Ktg-027300:54 TOE(S),MIN 2 VIEWS Radiology Report See Note [...] regarding this rep ort, please call our 85O3rxyejiq line @ Dictated on 05/30/11 1150 by ARNEL TORRESTranscribed on 05/30/112228 by ITS IMPORTSign by ARNEL TORRES on 05/30/112229 Sign by: ARNEL TORRES 54-Udf-33115:21 GALLBLADDER Radiology Report See Note (Normal) Comments: [...] of the right kidney. The right kidn edziwkgmbu36.6 x 4.7 x 4.0 cm. Normal renal [...] 7-18 GLU 76 mg/dL (Normal) Range: 70-110 18-Alk-537071:02 TROPONIN-I < 0.02 ng/mL (Normal) Comments: TROPONIN-I EXPECTED VALUES <0.05 NEGATIVE 0.06 - 0.59 AT RISK OF PA > OR = 0.60 SUGGEST PA 28-Smi-63506:11 ANKLE,MIN 3 VIEWS Radiology Report See Note [...] abnormalities identified. Dictated on 12/14/10 0919 by IGSSELLE GONZALES MDTranscribed on 12/14/10 1004 by ITS IMPORTSign by Bianca CUTLER MD,GISSELLE on 12/14/10 1005 Sign by: GISSELLE GONZALES MD 18-Iua-11852:52 URINE ALEX CULTURE (JASMINE COL Comments: PATIENT NOT FASTINGPERFORMED BY: [facility] [id number] [facility] [id number] COUNT) (13905) Result 1 NG36 (Normal) Comments: No growth in 36 - 48 hours. Urine Culture,Comprehensive Final report (Normal) :07 Urinalysis, Office (39354) UA - BILIRUBIN Negative (Normal) UA - [...] CHOL 150 mg/dL (Normal) Comments: <200 mg/dL Tvzwplujx771-512 mg/dL Borderline>240 mg/dL High Risk HDL 56 [...] CHOL 150 mg/dL (Normal) Comments: <200 mg/dL Ycyskgile256-444 mg/dL Borderline>240 mg/dL High Risk LDH 160 [...] (Normal) Comments: Result: NEGATIVE COLOR YELLOW (Normal) 34-Hmo-235125:10 BILAT SCRN DIGITAL & CAD Radiology See Note Comments: Exam Number: [id number] MAMMOGRAPHY - BILATERAL SCREENING INDICATION:Routine annual screening [...] not delay biopsy of a clinicallysuspicious abnormality.ADDENDUM: [id number] HPBI/MDS MAMMOGRAPHY - BILATERAL SCREENING INDICATION:Routine annua [...] attach ing a ResultCode to this exam.ADDENDUM: [id number] HPBI/MDS Reported By: GISSELLE GONZALES M.D. 45-Sow-025698:09 DEXA BONE DENSITY STUDY (HP) Radiology Report See Note Comments: Exam Number: [id number] CLINICAL:The patient is a 69-year-old female who is postmenopausal with pasthistory of hormone replacement therapy. History of fracture of L5tqdhgr history of osteoporosis EXAMINA (Normal) TION:DUAL ENERGY X-RAY ABSORPTIOMETRY / DEXA. TECHNIQUE:Bone Density Measurements (BMD) of lumbar spine and bilateral hipswere obtained using a [employer] scanner. COMPARISON:March 24 999, October 29, 2002, [...] NIH Osteoporosis and Related Bone Diseases http://www.osteo.org2. [facility] [place] Society for Clinical Densitometryhttp://www.iscd.org3. National Osteoporosis Foundation http://www.nof.org Reported By: GISSELLE GONZALES M.D. 24-Dec-19 VIT D,25 54086 39.0 ng/mL Range: 32.0-100.0 1012:08 (Normal) Comments: Recent studies consider the lower limit of 32.0 ng/mL to isabel threshold for optimal health.Sheng BURNETT. J Nutr. 2005 Jul;135(2):317- 22.Performed at: [facility] [place] [address]Lab Director: Korin Harris MD, Phone: [phone] 29-Oct-19 C DIF TOXIN/AG See Note Comments: C. DIFF ANTIGENS NEGATIVE 105:40 (Normal) 35-Cxa-48880:40 CUL STOOL/SHIG SHIGA-TOXIN See Note (Normal) Comments: [...] Crytosporidium parvum,Cyclospora, or Microsporidia.__ [facility]. ORIGINAL REPORT ONFILE IN LAB CONTAINS ADDITIONAL TEST SITE INFORMATION. OVA/ PARASITES EXAM NO OVA, CYSTS, OR PARASITES FOUND. :40 WBC,STOOL See Note (Normal) Comments: FECAL WBCs NONE SEEN 31-Riu-759142:25 ABDOMEN/PELVIS WITH CONTRAST Radiology Report See Note (Normal) Comments: Exam Number: [id number] CLINICAL:This is a 68-year-old female patient with [...] SED RATE 48 mm/h (Abnormal) Range: 0-30 80-Vxt-197798:55 URINE ALEX CULTURE (JASMINE Comments: PATIENT NOT FASTINGPERFORMED BY: [facility]3][id number] [facility] [id number] Information: SRC:UR [id number] COL COUNT) (73393) Result 1 NG36 (Normal) Comments: No growth in 36 - 48 hours. Urine Culture,Comprehensive Final report (Normal) 85-Xgo-015876:20 Urinalysis, Office (53964) UA - LEUKOCYTE ESTERASE Small (Normal) UA - NITRITE Negative (Normal) URINE UROBILINGN JASMINE TIMED 2 mg/dL (Normal) UA - PROTEIN Negative mg/dL (Normal) UA - PH 7.0 (Normal) UA - BLOOD Hemolyzed Trace (Normal) UA - SPECIFIC GRAVITY 1.015 (Normal) UA - KETONES Negative mg/dL (Normal) UA - BILIRUBIN Negative (Normal) UA - GLUCOSE Negative (Normal) 11-Iln-05510:11 BREAST UNILATERAL US () Radiology Report See Note (Normal) Comments: Exam Number: [id number] CLINICAL:The patient is a 68-year-old female with [...] CHOL 147 mg/dL (Normal) Comments: <200 mg/dL Minkakaze754-115 mg/dL Borderline>240 mg/dL High Risk :03 LIVER ALB 4.2 g/dL (Normal) Range: 3.4-5.0 ALK P 66 U/L (Normal) Range: 50-136 ALT 29 U/L (Normal) Range: 12-78 AST 20 U/L (Normal) Range: 15-37 D BILI 0.09 mg/dL (Normal) Range: 0.00-0.30 T BILI 0.30 mg/dL (Normal) Range: 0.00-1.00 T PROT 7.9 g/dL (Normal) Range: 6.4-8.2 42-Bll-426609:41 Urinalysis, Office (51355) UA - LEUKOCYTE ESTERASE Trace (Normal) UA [...] Report See Note (Normal) Comments: Exam Number: [id number] CLINICAL: 68-year-old female with knee pain lateral [...] 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 Reported By: John Alcocer M.D. 4-Usi-827203:24 KNEE,4 OR MORE VIEWS (MT) Radiology Report See Note (Normal) Comments: Exam Number: [id number] CLINICAL:Pain X-RAY EXAMINATION RIGHT KNEE TECHNIQUE:4 view(s) [...] change. Osteopenia. Reported By: ARIADNA PERAZA M.D. 8-Qwy-894719:23 L/S SPINE,MIN 4 VIEWS (MT) Radiology Report See Note (Normal) Comments: Exam Number: [id number] CLINICAL:Low back pain, radiculopathy X-RAY EXAMINATION: LUMBAR [...] acute fracture. Reported By: ARIADNA PERAZA M.D. 1-Iza-690753:00 EMP URINALYSIS BILIRUBIN URINE SeeNote (Normal) Comments: [...] Range: 0.2 - 1.0 COLOR YELLOW (Normal) 2-Ofm-888948:00 ROUTINE UA BILIRUBIN URINE SeeNote (Normal) Comments: [...] 6.4-8.2 URIC 4.3 mg/dL (Normal) Range: 2.6-6.0 55-Sls-59986:31 DEXA BONE DENSITY STUDY () Radiology Report See Note (Normal) Comments: Exam Number: [id number] BONE DENSITOMETRY HISTORYOsteopenia. TECHNIQUE Bone densitometry of the lumbar spine and both hips is now beingperformed. The best criteria for evaluation of osteoporosis is theT-value, which represents the comparison of the patient's bone mass leigh expected peak bone mass. For most patients, the mean T-value of B1lmgroji L4 is used to evaluate the lumbar [...] density is measured at 7.2% less than eg7989.The T-valu e of the right femoral neck is -2 which is in the range ofosteopenia.The T- value of the total right hip is -1.7 which is in the range ofosteopenia. IMPRESSIONThere is osteopenia of the lumbar spine and both hips. Reported By: GISSELLE GONZALES M.D. 65-Sgy-49344:54 BREAST UNILATERAL US () Radiology Report See Note (Normal) Comments: Exam Number: [id number] TARGETED LEFT BREAST ULTRASOUND HISTORYAbnormal mammogram. High-resolution [...] Greene's office and the office was called [id number] hours December 22, 2008. Reported By: GISSELLE GONZALES M.D. 57-Osk-494876:35 UNILAT LT DIAG DIGITAL & CAD Radiology Report See Note (Normal) Comments: Exam Number: [id number] MAMMOGRAM, UNILATERAL LEFT DIAGNOSTIC DIGITAL AND CAD [...] 1992 (MQSA). The mammograms werealso examined w [employer] computer-aided detection software ([employer] Reported By: GISSELLE GONZALES M.D. 98-Dxi-616913:30 BILAT SCRN DIGITAL & CAD Radiology Report See Note (Normal) Comments: Exam Number: [id number] MAMMOGRAM, BILATERAL SCREENING DIGITAL AND CAD HISTORYRoutine [...] mammograms werealso examined with computer-aided detection software ([employer].). Reported By: GISSELLE GONZALES M.D. 05-Rrd-998705:37 BMP BUN 15 mg/dL (Normal) Range: 7-18 [...] g/dL (Normal) Range: 6.4-8.2 :11 AT3 F/I 52792 AT3 AG, IMMUNOL 131 % (Abnormal) Range: 75-130 AT3 FUNCT 51064 131 % (Normal) Range: 75-135 :11 PROT C 367263 PROT C,IV433439 169 % (Abnormal) Range: 74-151 Comments: Performed At: [address] [id number] PROTEIN C 10728 106 % (Normal) Range: 70-140 :11 PROT S 747261 PROTEIN S, FREE 107 % (Normal) Range: 56-124 PROTEIN S, FUNC 82 % (Normal) Range: 60-145 PROTEIN S,TOTAL 137 % (Normal) Range: 58-150 :38 A-CARDIO [id number] Comments: ORDER ALSO STATES ANTIPHOSPHOLIPIDS, WHICH IS [...] mm/h (Normal) Range: 0-30 :38 FAC II 853043 Comments: ORDER ALSO STATES ANTIPHOSPHOLIPIDS, WHICH IS A SYNONYM OFANTICARDIOLIPIN FACTOR II,DNA Comment (Normal) Comments: NEGATIVENo mutation identified.Comment:A point mutation (I92179S) in the Factor II (prothrombin)gene is the [...] protein C and protein S. :38 FACVL 637884 Comments: ORDER ALSO STATES ANTIPHOSPHOLIPIDS, WHICH IS [...] , elevatedhomocysteine levels, or a Factor II/prothrombin mutation(T67372R). Contact you r local [facility] for information [...] mg/dL VLDL 31 mg/dL (Normal) Range: 5-40 39-Mzj-937389:35 CULTURE, URINE URINE CULTURE See Note (Normal) Comments: Predominant colony type being a gram positive trevor, probableLactobacillus species. COLONY COUNT 50,000-80,000 ORGANISM 1: MIXED GRAM POSITIVE ORGANISMS 34-Svq-354632:35 ROUTINE UA BILIRUBIN URINE SeeNote (Normal) Comments: [...] 0.2 EU/dl (Normal) Range: 0.2 - 1.0 61-Fqh-97766:48 Urinalysis, Office (55856) UA - BILIRUBIN Negative (Normal) UA - BLOOD Negative (Normal) UA - GLUCOSE Negative (Normal) UA - KETONES Negative mg/dL (Normal) UA - LEUKOCYTE ESTERASE Trace (Normal) UA - NITRITE Negative (Normal) UA - PH 6.5 (Normal) UA - PROTEIN Negative mg/dL (Normal) UA - SPECIFIC GRAVITY 1.005 (Normal) URINE UROBILINGN JASMINE TIMED 2 mg/dL (Normal) 2-Juu-646270:04 BILAT SCRN DIGITAL & CAD Radiology Report See Note (Normal) Comments: Exam Number: [id number] MAMMOGRAM, BILATERAL SCREENING DIGITAL AND CAD HISTORYRoutine [...] werea lso examined with computer-aided detection software ([employer].). Reported By: GISSELLE GONZALES M.D. 3-Uqy-114997:41 DEXA BONE DENSITY STUDY (HP) Radiology Report See Note (Normal) Comments: Exam Number: [id number] BONE DENSITOMETRY HISTORYOsteopenia. TECHNIQUE Bone densitometry of [...] density is measured at 0.2% less than ge0766 and 0.1% more than in 2005. IMPRESSIONThere [...] 2.6-6.0 VLDL 21 mg/dL (Normal) Range: 5-40 64-Hog-93948:19 EMP URINALYSIS BILIRUBIN URINE SeeNote (Normal) Comments: [...] {mg/24_hr} (Normal) Range: 1.8-6.7 Comments: Performed At: [employer] [id number] VMA,UR 3.4 mg/L (Normal) :16 ALDOST,U24 4291 Comments: 24 H URINE TV = 2580 ML ALDOSTERONE,U24 3 {ug/24_hr} (Normal) Range: 2-21 Comments: 1 mo. 1 - 11 1- 12 mos. 1 - 22 1- 16 yrs. 2 - 16 Adult Ranges Normal diet 2 - 21 Low salt 17 - 44 High salt 0 - 14Performed At: [address] [id number] ALDOSTERONE,UR 1 ug/L (Normal) 73-Uog-300429:17 BRAIN/HEAD W/WO CONTRAST Radiology Report See Note (Normal) Comments: Exam Number: [id number] CT SCAN OF BRAIN HISTORYHeadache. Scans were [...] :51 CBC With Differential/Platelet Comments: PERFORMED BY: [employer] Koaruv3103 [facility] [id number] Baso (Absolute) 0.1 {x10E3/uL} (Normal) Range: 0.0-0.2 [...] Comp. Metabolic Panel (14) Comments: PERFORMED BY: [facility]3][id number] [facility] [id number] A/G Ratio 1.5 (Normal) Range: 1.1-2.5 Albumin, [...] Sedimentation 4 mm/h (Normal) Comments: PERFORMED BY: [facility] [id number] :51 Rate-Westergren Range: 0-30 9-Trx-307912:29 CULTURE, URINE URINE CULTURE See Note {CFU/mL} (Normal) Comments: COLONY COUNT >100,000 ORGANISM 1: ENTEROCOCCUS FAECALIS ENTEROCOCCUS FAECALIS: REACTION CIPROFLOXACIN GP $$$ <=0.5 S LEVOFLOXAC IN $$ <=1 S NITROFURANTOIN $ <=32 S PENICILLIN G (ENTEROCOCCUS) $$ 2 S TETRACYCLINE $$ <=1 S VANCOMYCIN $$ <=0.5 S 1-Zvv-382197:29 ROUTINE UA BILIRUBIN URINE SeeNote (Normal) Comments: [...] EASY BRUISABILITY OF SKIN Planned Observations TSH (87342)Indication: Hypercholesterolemia On: :51 Request URINALYSIS, W/ MICRO (59499)Indication: Essential hypertension On: : Request MICROALBUMIN: CREATININE RATIO (62657) AND (81685)Indication: Essential hypertension On: :51 Request METABOLIC PANEL, COMPREHENSIVE (55911)Indication: Essential hypertension On: :51 Request LIPID PANEL (62667)Indication: Essential hypertension On: :51 Request CBC W/AUTO DIFF WBC (92323)Indication: Essential hypertension On: :51 Request Metabolic Panel, Basic (61425)Indication: Essential hypertension On: 16-Jxg-055612:32 Request Comments: 2 weeks Vitamin D Hydroxy (18403)Indication: Osteopenia On: :23 Request URINALYSIS, W/ MICRO (50114)Indication: Essential hypertension On: :23 Request CBC W/AUTO DIFF WBC (49539)Indication: Essential hypertension On: :23 Request METABOLIC PANEL, COMPREHENSIVE (17262)Indication: Essential hypertension On: :23 Request LIPID PANEL (05899)Indication: Hypercholesterolemia On: :22 Request SED RATE ERYTHROCYTE (06985)Indication: Abdominal pain, acute, generalized On: :47 Request C-REACTIVE PROTEIN (64339)Indication: Abdominal pain, acute, generalized On: :47 Request CBC with auto diff (08819)Indication: Abdominal pain, acute, generalized On: :46 Request URINALYSIS, W/ MICRO (60749)Indication: Essential hypertension On: :27 Request LIPID PANEL (47870)Indication: Hypercholesterolemia On: :27 Request METABOLIC PANEL, COMPREHENSIVE (42858)Indication: Essential hypertension On: 8-Twc-246437:26 Request VARICELLA-ZOSTER ANTBODY (45041)Indication: Hypercholesterolemia On: 03-Dyv-057169:58 Request TSH (65533)Indication: Anxiety associated with depression On: :12 Request LIPID PANEL (82771)Indication: Hypercholesterolemia On: :12 Request CBC W/AUTO DIFF WBC (71696)Indication: Essential hypertension On: :12 Request METABOLIC PANEL, COMPREHENSIVE (06464)Indication: Essential hypertension On: :12 Request VARICELLA-ZOSTER ANTBODY (01476)Indication: screen On: 18-Izq-166491:59 Request CBC WITH MANUAL DIFF (41534)Indication: Essential hypertension On: 41-Nmn-109997:59 Request LIPID PANEL (28744)Indication: Hypercholesterolemia On: 07-Anp-658596:58 Request METABOLIC PANEL, COMPREHENSIVE (53065)Indication: Essential hypertension On: 22-Rnp-429315:58 Request Vitamin D Hydroxy (02908)Indication: Osteopenia On: :33 Request METABOLIC PANEL, COMPREHENSIVE (49615)Indication: Essential hypertension On: :33 Request LIPID PANEL (69695)Indication: Hypercholesterolemia On: :33 Request METABOLIC PANEL, COMPREHENSIVE (45832)Indication: Essential hypertension On: 91-Iky-97095:57 Request LIPID PANEL (47944)Indication: Hypercholesterolemia On: 25-Dic-99318:56 Request Vitamin D Hydroxy (05218)Indication: Anxiety associated with depression On: 77-Cpe-098526:51 Request CBC WITH MANUAL DIFF (82357)Indication: Essential hypertension On: :51 Request METABOLIC PANEL, COMPREHENSIVE (77227)Indication: Essential hypertension On: 48-Jud-049134:51 Request TSH (77066)Indication: Anxiety associated with depression On: 77-Xza-129623:51 Request LIPID PANEL (21809)Indication: Hypercholesterolemia On: 91-Eki-812496:50 Request CBC WITH MANUAL DIFF (38333)Indication: Essential hypertension On: :30 Request METABOLIC PANEL, COMPREHENSIVE (29464)Indication: Essential hypertension On: : Request LIPID PANEL (65965)Indication: Hypercholesterolemia On: : Request URINALYSIS, W/ MICRO (39044)Indication: Essential hypertension On: :08 Request CBC WITH MANUAL DIFF (39171)Indication: Essential hypertension On: :08 Request METABOLIC PANEL, COMPREHENSIVE (49770)Indication: Essential hypertension On: :06 Request LIPID PANEL (98728)Indication: Hypercholesterolemia On: :06 Request LIPID PANEL (22184)Indication: Hypercholesterolemia On: : Request CBC WITH MANUAL DIFF (19815)Indication: Essential hypertension On: :28 Request METABOLIC PANEL, COMPREHENSIVE (11425)Indication: Essential hypertension On: :28 Request METABOLIC PANEL, COMPREHENSIVE (37666)Indication: Essential hypertension On: 32-Bwh-647856:48 Request Vitamin D Hydroxy (00277)Indication: Depression On: 29-Ubv-581405:48 Request LIPID PANEL (00076)Indication: Hypercholesterolemia On: 06-Gpy-395654:47 Request CBC WITH MANUAL DIFF (42522)Indication: Other chest pain On: 89-Kpk-431641:19 Request METABOLIC PANEL, COMPREHENSIVE (76428)Indication: Other chest pain On: 40-Usr-947645:18 Request ASSAY, TROPONIN, QUANTITATIVE (aka Troponin I) (08641)Indication: Other chest pain On: 18-Flg-930162:18 Request Comments: stat CALCIFEDIOL (13300)Indication: Eczema (Renamed from Dermatitis, eczematoid) On: 77-Lqf-359558:34 Request OVA & PARASITE DIR SMEAR (37052)Indication: Diarrhea (Renamed from D (diarrhea)) On: 11-Mim-738739:11 Request LEUKOCYTE COUNT, FECAL (67943)Indication: Diarrhea (Renamed from D (diarrhea)) On: 19-Bbb-737514:10 Request C.Difficile, Stool (78437)Indication: Diarrhea (Renamed from D (diarrhea)) On: 33-Awu-013204:10 Request ALEX CULTURE-STOOL (55420)Indication: Diarrhea (Renamed from D (diarrhea)) On: 54-Vhf-451710:10 Request SED RATE ERYTHROCYTE (23084)Indication: Abdominal pain, acute, left lower quadrant On: 76-Uhu-554338:10 Request C-REACTIVE PROTEIN (19137)Indication: Abdominal pain, acute, left lower quadrant On: 06-Oxh-773898:10 Request URINALYSIS, W/ MICRO (58481)Indication: Abdominal pain, acute, left lower quadrant On: 58-Fuu-825321:10 Request METABOLIC PANEL, COMPREHENSIVE (46243)Indication: Abdominal pain, acute, left lower quadrant On: 54-Wms-810417:10 Request CBC WITH MANUAL DIFF (37563)Indication: Abdominal pain, acute, left lower quadrant On: 25-Gyi-281085:10 Request METABOLIC PANEL, COMPREHENSIVE (62754)Indication: Essential hypertension On: 85-Hdb-982572:47 Request HEPATIC FUNCTION PANEL (32851)Indication: Hypercholesterolemia On: 20-Bjq-457916:47 Request LIPID PANEL (65133)Indication: Hypercholesterolemia On: 54-Wtp-241767:47 Request Vitamin D Hydroxy (49391)Indication: Osteopenia On: 21-Wau-246737:46 Request LIPID PANEL (56620)Indication: Hypercholesterolemia On: :38 Request HEPATIC FUNCTION PANEL (34162)Indication: Hypercholesterolemia On: :38 Request Metabolic Panel, Basic (02022)Indication: DISORDERS, ORGANIC, SLEEP RELATED LEG CRAMPS On: 32-Esy-377306:17 Request URINALYSIS W/O MICRO (36148)Indication: Essential hypertension On: :48 Request TSH (01525)Indication: Essential hypertension On: 4-Khs-230443:48 Request METABOLIC PANEL, COMPREHENSIVE (91004)Indication: Essential hypertension On: :48 Request CBC WITH MANUAL DIFF (44136)Indication: Essential hypertension On: :48 Request LIPID PANEL (96383)Indication: Hypercholesterolemia On: 7-Kmu-063145:48 Request CBC WITH MANUAL DIFF (17321)Indication: Anemia, unspecified On: :51 Request LIPID PANEL (36405)Indication: Hypercholesterolemia On: :31 Request HEPATIC FUNCTION PANEL (89079)Indication: Hypercholesterolemia On: :41 Request LIPID PANEL (85261)Indication: Hypercholesterolemia On: :41 Request SED RATE ERYTHROCYTE (47015)Indication: Headache (Renamed from Cephalalgia) On: :40 Request METABOLIC PANEL, COMPREHENSIVE (59939)Indication: Headache (Renamed from Cephalalgia) On: :39 Request CBC WITH MANUAL DIFF (78255)Indication: Headache (Renamed from Cephalalgia) On: :39 Request CBC WITH MANUAL DIFF (70370)Indication: EASY BRUISABILITY OF SKIN On: :59 Request PTT (ACTIVATED PARTIAL THROMBOPLASTIN TIME) (37546)Indication: EASY BRUISABILITY OF SKIN On: :59 Request PT (PROTHROMBIN TIME) (65795)Indication: EASY BRUISABILITY OF SKIN On: :59 Request HEPATIC FUNCTION PANEL (21556)Indication: Hypercholesterolemia On: :54 Request LIPID PANEL (51486)Indication: Hypercholesterolemia On: :54 Request Planned Encounters Medical; 4 Month FU - On: 18-Apr-2018 10:30 [facility] Catrina Perry DO, DO, Kathleen Planned Procedures CT OF NECK WITHOUT THEN WITH On: 09-Apr-2018 Intent INTRAVENOUS CONTRAST (93622)By: Comments: include thyroid Acacia Whaley CNP Ultrasound - ThyroidBy: Jovana OJEDA, On: 09-Apr-2018 Intent Acacia Wang Comments: attetion soft tissue rt side of neck Flu Vaccine (Quadrivalent) 07990Og: On: 13-Mar-2018 Intent Ladi Max Comments: Lot #[id number]-L dltd, IMDose prefilled syringegiven by:SABINA Mclain reviewed and ABN signed FLAT PLATE (09910)By: Jovana OJEDA, On: 19-Dec-2017 Intent Acacia Wang ELECTROCARDIOGRAM, COMPLETE (ECG) On: 12-Dec-2017 Intent (78449)By: Catrina Perry DO Comments: nsr no acute chg Catrina Perry DO Bone Density StudyBy: Tessie Greene DO On: 10-May-2015 Intent A Comments: screening ADMINISTRATION OF INFLUENZA VIRUS On: 05-Feb-2015 Intent VACCINE (G0008)By: Tessie Greene DO Flu Vaccine (Quadrivalent) 66547Xe: On: 05-Feb-2015 Intent Tessie Greene DO Comments: Lot:[id number]:09/01/15Dose:0.5mLRoute:IMSite:L DltdGiven By:MARTY signed MAMMOGRAM, SCREENING, BOTH BREAST On: 05-Feb-2015 Intent (50203)By: Tessie Greene DO Comments: nov DEXA SCAN AXIAL SKELETON (38371)By: On: 05-Feb-2015 Intent Tessie Greene DO Comments: nov Solu -Medrol Injection, 125 mg On: 09-Dec-2014 Intent (J2930)By: Acacia Whaley CNP Comments: lot:[id number]:route:IMdose:125MGsite: R glutGiven by: ROSANGELA Gamble MAMMOGRAM, SCREENING, BOTH BREAST On: 13-Mar-2014 Intent (45832)By: Tessie Greene DO ADMINISTRATION OF INFLUENZA VIRUS On: 13-Mar-2014 Intent VACCINE (G0008)By: Tessie Greene DO FLU VAC, SPLIT, >3 YEARS, INTRAMUSC On: 13-Mar-2014 Intent (20104)By: Tessie Greene DO Comments: lot: [id number]: 12-01-13site/route: L del/IMamt: 0.5mLVIS signed when applicableROSANGELA Villa Eprescribed prescriptions (G8553)By: On: 16-Sep-2013 Intent Tessie Greene DO Eprescribed prescriptions (G8553)By: On: 18-Mar-2013 Intent Libby Herndon FLU VAC, SPLIT, >3 YEARS, INTRAMUSC On: 20-Feb-2013 Intent (87518)By: Fallon Carranza Comments: Lot:[id number]:Dose:0.5mLRoute:IMSite:L DltdGiven By:MARTY signed IMMUNIZ ADMNIN, 1 VAC, SNGL/COMBO On: 20-Feb-2013 Intent (35996)By: Fallon Carranza MAMMOGRAM, SCREENING, BOTH BREASTS On: 31-Dec-2012 Intent (28147)By: Tessie Greene DO Eprescribed prescriptions (G8553)By: On: 11-Nov-2012 Intent Libby Herndon Eprescribed prescriptions (G8553)By: On: 23-Sep-2012 Intent Libby Herndon EKG (40910)By: Libby Herndon On: 21-Aug-2012 Intent Comments: ekg showed normal sinus rhythym, normal axis, no acute st/t wave changes Eprescribed prescriptions (G8553)By: On: 25-Jun-2012 Intent Tanya Bermudez LPN PNEUM VAC ADLT/IMUMNOSPR, SBC/INTRM On: 03-May-2012 Intent (68748)By: Tessie Greene DO Comments: Lot:[id number]:3--14Dose:0.5mLRoute:IMSite:L armGiven By:AGA ADMINISTRATION OF PNEUMOCOCCAL On: 03-May-2012 Intent VACCINE (G0009)By: Tessie Greene DO Eprescribed prescriptions (G8553)By: On: 03-May-2012 Intent Libby Herndon Qvirxctis-Zxx-Dptbf (42345)By: Ciesa On: 08-Apr-2012 Intent RUSTY Lori DXA, BONE DENSITY, AXIAL SKELETON On: 30-Jan-2012 Intent (10069)By: Tessie Greene DO MAMMOGRAM, SCREENING, BOTH BREASTS On: 30-Jan-2012 Intent (32339)By: Tessie Greene DO IMMUNIZ ADMNIN, 1 VAC, SNGL/COMBO On: 30-Jan-2012 Intent (23685)By: Megan Phillips LPN Comments: Lot/Exp: [id number], 11/2011Given in L Dltd, IMPrefilled SyringeBy ROEL Guzman FLU VAC, SPLIT, >3 YEARS, INTRAMUSC On: 30-Jan-2012 Intent (11351)By: Megan Phillips LPN Breast Screening - BilateralBy: [...] DO, Tessie A On: 01-May-2011 Intent EKG (94374)By: Libby Herndon On: 01-May-2011 Intent Comments: ekg showed normal sinus rhythym, normal axis, no acute st/t wave changes poor r wave progression unchanged TDAP VACCINE >7 IM (81041)By: On: 01-May-2011 Intent Libby Herndon Comments: work FLU VAC, SPLIT, >3 YEARS, INTRAMUSC On: 01-May-2011 Intent (10610)By: Libby Herndon Comments: work DXA, BONE DENSITY, AXIAL SKELETON On: 09-Feb-2011 Intent (02088)By: Monserrat Granado LPN MAMMOGRAM, SCREENING, BOTH BREASTS On: 09-Feb-2011 Intent (74588)By: Monserrat Granado LPN Radiology - Ankle - LeftBy: Ciesa On: 14-Dec-2010 Intent RUSTY Lori Comments: call wet read to Acacia Whaley Eprescribed prescriptions (G8553)By: On: 15-Nov-2010 Intent Fast DO, Tessie A CT - Abdomen & PelvisBy: Fast DO, On: 26-Oct-2009 Intent Tessie A Comments: tomorrow call wet read EKG (30891)By: Libby Herndon On: 30-Aug-2009 Intent Comments: do [...] DO, On: 07-Jun-2007 Intent Tessie Soler EKG (25916)By: Tessie Greene DO On: 28-Apr-2007 Intent Comments: ordered to be done at the hospital CT - Brain/HeadBy: Tessie Greene DO On: 20-Mar-2007 Intent Comments: with and without contrast- please do stat and call wet read IMMUNIZ ADMNIN, 1 VAC, SNGL/COMBO On: 04-Apr-2006 Intent (33632)By: Libby Herndon PNEUM VAC ADLT/IMUMNOSPR, SBC/INTRM On: 04-Apr-2006 Intent (17447)By: Libby Herndon Comments: Lot #:Expiration date:Amount given:Route: IMSite given:LEFT DELTOIDGiven by: EDILMA Weinberg IMMUNIZ ADMNIN, 1 VAC, SNGL/COMBO On: 04-Apr-2006 Intent ([id number])By: Tessie Greene DO PNEUM VAC ADLT/IMUMNOSPR, SBC/INTRM On: 04-Apr-2006 Intent ([id number])By: Tessie Greene DO Planned Medications INJECTION, METHYLPREDNISOLONE [...] The patient does have durable power of district attorney and living will. The patient has [...] The patient does have durable power of district attorney and living will. The patient has noticed nothing from the geriatic depre ssion scale. Other providers contributing to the patient's care are other: (hearing and eye drLatrell herrera and Dr. Zamora). Note for Annual Medicare Exam: NO labwork done for today and pt had her well woman exam done with [employer].-weight down trying - her bp up little [...] effective than benicar- she said mood in [facility] is reasonable- doesnt want to change- [...] to get back on track and joining [email or web address] at [employer]- her mood is pretty good and brother [...] compliant with instructions. Current medication use: no mavlin End: 30-Aug-2009 16:48 e effects and compliant [...] with welbutrin more energy and seeing the business systems advisor-- no issues withthe crestor- wever since cortison [...] for chronic medical issues: her brother in [facility] and got a pressure sore- [...] df's recieved documents from Dr. Nichole at [facility]). 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
--- OUTSIDE RECORDS SUMMARY | 2018-08-24 15:49 | XMS RPT_ITS | Continuity of Care Document ---
:1940 External Reference #:[id number] Author Organization [facility] Address [address] [place] [address] Phone Care Team Providers Name Role Phone Catrina Perry DO Unavailable Ricardo Rollins MD Unavailable Dr. Addison Kimball Unavailable [facility] PLASCENCIA, Dr. Janes Dougherty Unavailable Sadia Goel Unavailable Unavailable Carli Marks Unavailable Unavailable Libby Herndon Unavailable Unavailable Fallon Carranza Unavailable Unavailable Print Production Coordinator, System Unavailable Unavailable Carolin Garber LPN Unavailable [...] 1 qd (20 MG) Active CITRACAL MAXIMUM, [id number] (Oral Tablet) 1 tab bid (315-250 MG-UNIT) [...] days Quantity: 90 {Capsule_DR} Refills: 3 Ordered:30-Jan-2012 Tessei Greene DO Start : 30-Jan-2012 End : [...] WITH Contrast Result: Comments: See Note; NOTES: [facility] Services [address] [place] [address] Soft Tissue Neck WITH Contrast MR#: [id number] Acct: [id number] Name: HERMAN LEONARD Rep #: [id number] : 1940 F 77 From: Michael Alonso MD PCP: Catrina Perry DO Status: REG CLI Study: Soft Tissue Neck WITH Contrast Date of Exam: 04/10/18 Exam# [id number] Ordering Dr: Acacia Whaley STUDY: CT SOFT [...] FINDINGS: Normal bilateral parotid glands. Normal bilateral naturalist spaces. Normal bilateral parapharyngeal spaces. Normal bilateral [...] Alonso MD 04/10 at 15:37 EST Tel [phone], Service support , CC: Acacia Whaley NP; Catrina Perry DO Car Escort: Signed 10-Apr-2018 Soft Tissue Neck WITH Contrast Result: Comments: See Note; NOTES: [facility] Services [address] [place] [address] Soft Tissue Neck WITH Contrast MR#: [id number] Acct: [id number] Name: HERMAN LEONARD Rep #: [id number] : 1940 F 77 From: Michael Alonso MD PCP: Catrina Perry DO Status: REG CLI Study: Soft Tissue Neck WITH Contrast Date of Exam: 04/10/18 Exam# [id number] Ordering Dr: Acacia Whaley PJesus ADDENDUM by [...] Michael Alonso MD at 8:47 EST Tel [phone], Service support , 04/11/18 0847 Date cc : Acacia Whaley NP; Catrina Perry DO * Signed ADDENDUM by Michael Alonso MD on 04/11/[address]/Soft Tissue Neck WITH Contrast 04/11/18 0854 Date cc: Acacia Willis sa HIGH SCHOOL MATH TEACHER; Catrina Perry DO * Signed STUDY: [...] FINDINGS: Normal bilateral parotid glands. Normal bilateral naturalist spaces. Normal bilateral parapharyngeal spaces. Normal bilateral [...] Michael Alonso MD at 15:37 EST Tel [phone], Service support , CC: Acacia Whaley NP; Catrina Perry DO Car Escort: Signed 09-Apr-2018 Thyroid Result: Comments: See Note; NOTES: [facility] [address] [place] [address] Thyroid MR#: [id number] Acct: [id number] Name: HERMAN LEONARD Rep #: [id number] : [birth year] F 77 From: Michael Alonso MD PCP: Catrina Perry DO Status: REG CLI Study: Thyroid Date of Exam: 04/09/18 Exam# [id number] Ordering Dr: Acacia Whaley HIGH SCHOOL MATH TEACHERJesus STUDY: THYROID ULTRASOUND REASON FOR EX AM: [...] Alonso MD at 15:[address] Tel [phone], Service support , CC: Acacia Whaley HIGH SCHOOL MATH TEACHER; Catrina Perry DO Car Escort: Signed 19-Dec-2017 Abdomen Single View Result: Comments: See Note; NOTES: [facility] [address] [place] [address] Abdomen Single View MR#: [id number] Acct: [id number] Name: HERMAN LEONARD Rep #: [id number] D OB: 1940 F 76 From: Chris Rachel MD PCP: Catrina Perry DO Status: REG CLI Study: Abdomen Single View Date of Exam: 12/19/17 Exam# [id number] Ordering Dr: Acacia Whaley STUDY: X-RAY - [...] CC: Acacia Whaley NP; Catrina Perry DO Car Escort: Signed 20-May-2015 Dexa Bone Density Study (HP) Result: Comments: See Note; NOTES: [facility] [address] [place] [address] Verdana 4d Dexa Bone Density Study () MR#: [id number] Acct: [id number] Name : HERMAN LEONARD Rep #: [id number] : 1940 F 74 From: Michael Alonso MD PCP: Tessie Greene DO Status: REG CLI Study: Dexa Bone Density Study () Date of Exam: 05/20/15 Exam# [id number] Zulema carney Dr: Tessie Greene DO STUDY: [...] Michael Alonso MD at 10:30 EST Tel [phone], Service support [phone], CC: Jailyn Yang MD; Tessie Greene DO Car Escort: Signed 06-Apr-2015 Bilat Scrn Digital AND CAD Result: Comments: See Note; NOTES: [facility] Services [address] [place] [address] Verdana 4d Bilat Scrn Digital AND CAD MR#: [id number] Acct: [id number] Name: HERMAN LEONARD Rep #: [id number] : 1940 F 74 From: Michael Alonso MD PCP: Tessie Greene DO Status: REG CLI Study: Bilat Scrn Digital AND CAD Date of Exam: 04/06/15 Exam# [id number] Ordering D r: Tessie Greene DO MAMMOGRAPHY [...] Michael Alonso MD at 7:54 EST Tel [phone], Service support [phone], CC: Tessie Greene DO Car Escort: Signed 05-Feb-2015 EKG (65805) Comments: ekg showed normal sinus rhythym, normal axis, no acute st/t wave changes Result: [MEASUREMENTS ANALYSIS] Date of Test: 02/05/2015 09:47:50; Heart Rate: 58; NM Interval: 156; QRS: 93; QT Interval: 420; Corrected QT Interval (QTc): 417; P Wave [place]: 31; QRS Wave [place]: 31; T Wave [place]: 44; Blood Pressure: 122/84 [ECG DIAGNOSTIC STATEMENTS] Date of Test: 02/05/2015 09:47:50; Summary: Sinus Bradycardia WITHIN NORMAL LIMITS 27-Mar-2014 Bilat Scrn Digital & CAD Result: Comments: See Note; NOTES: [facility] Services [address] [place] [address] Breast Imaging Report MR#: [id number] Acct: [id number] Name: HERMAN LEONARD Rep #: [id number] : 1940 F 73 From: Michael Alonso MD PCP: Tessie Greene DO Status: REG CLI Exam# [id number] Ordering Dr: Tessie Greene DO MAMMOGRAPHY - [...] Michael Alonso MD at 9:36 EDT Tel [phone], Service support [phone], CC: Tessie Greene DO Car Escort: Signed 26-Mar-2013 Db Carranza Digital & CAD Result: Comments: See Note; NOTES: [facility] Services [address] [place] [address] Breast Imaging Report MR#: [id number] Acct: [id number] Name: HERMAN LEONARD Rep #: [id number] : 1940 F 72 From: Michael Alonso MD PCP: Tessie Greene DO Status: REG CLI Exam# [id number] Ordering Dr: Tessie Greene DO MAMMOGRAPHY - [...] March 26, 2013 at 2:33:33 PM EDT [phone] Electronically Signed GP/GP If you are the referring physician and would like to consult with the radiologist who pr ovided this interpretation, please contact Michael Alonso M.D. at [phone]. If this radiologist is unavailable, you will be directed to another radiologist to assist. If you are a patient w ith a question regarding this report, please contact your referring physician directly. Professional Interpretation Provided By: [employer], Phone , These documents contain legally protected [...] of these documents. CC: Tessie Greene DO Car Escort: Signed Immunization Name Dates Details Pneumococcal (2 [...] smoker Vital Signs Date Test Result Details 1-Lwf-163517:59 Temperature 97.4 f Comments: Method: Temporal Pulse [...] Description Value Details :47 CREATININE FINGERSTICK Comments: [facility] [place] [address] [place], [place] [address] EGFR WB > 60.0000 mL/min (Normal) CREATININE WB 0.8 mg/dL (Normal) Range: 0.55-1.02 :40 Bilirubin, Direct Comments: Order Date: 03/13/17Order Info: 0788- [id number] - *Hepatic Function PanelOrder Info: [id number] - *Lipid Profile CC PCPComments: 12 hours fasting, may have water.DR PÉREZ ORDERED LIPID/LIVERDR VICKY ORDERED TS H/CBCD/LIPID/CMP/UA/[facility] [address] [place], [place], [address] D BILI 0.11 mg/dL (Normal) Range: 0.00-0.30 :40 CBC W/Diff, Automated Comments: DR PÉREZ ORDERED LIPID/LIVERDR PERRY ORDERED TSH/CBCD/LIPID/CMP/UA/[facility] [address] [place], [place], [address] SMEAR COMMENT SCANNED (Normal) Absolute Lymph 2.16 [...] 4.2-5.4 WBC 5.8 K/mm3 (Normal) Range: 4.4-11.0 06-Bwx-52174:40 Comprehensive Met[facility] Comments: Order Date: 03/13/17Order Info: 0788-1 - *Hepatic Function PanelOrder Info: [id number] - *Lipid Profile CC PCPComments: 12 hours fasting, may have water.DR PÉREZ ORDERED LIPID/LIVERDR VICKY ORDERED TS Profil H/CBCD/LIPID/CMP/UA/[facility] [address] [place], [address] GAP 5 (Normal) Range: 5-15 CO2 32.0 [...] Comments: Please note revised GLUCOSE reference range rncrnoiqw68/02/2018. 84-Ytq-13503:40 Lipid Profile Comments: Order Date: 03/13/17Order Info: 0788-1 - *Hepatic Function PanelOrder Info: [id number] - *Lipid Profile CC PCPComments: 12 hours fasting, may have water.DR PÉREZ ORDERED LIPID/LIVERDR PERRY ORDERED TS H/CBCD/LIPID/CMP/UA/[facility] [address] [place], [place], [address] VLDL 11 mg/dL (Normal) Range: 5-40 LDL [...] Comments: DR PÉREZ ORDERED LIPID/JUNIOR PERRY ORDERED TSH/CBCD/LIPID/CMP/UA/[facility] [address] [place], [address] Ratio,Random UR MALB:CREAT 9.7 {mg/g_CRE} (Normal) MICROALBUMIN,UR 5.3 mg/L (Normal) UR CREAT 55.10 mg/dL (Normal) :40 Thyroid Stim Hormone Comments: Order Date: 03/13/17Order Info: 0788-1 - *Hepatic Function PanelOrder Info: [id number] - *Lipid Profile CC PCPComments: 12 hours fasting, may have water.DR PÉREZ ORDERED LIPID/LIVERDR PERRY ORDERED TS (TSH) H/CBCD/LIPID/CMP/UA/[facility] [address] [place], [address] TSH 1.84 {uIU/mL} (Normal) Range: 0.358-3.74 93-Enz-84446:40 Urinalysis, Complete Comments: DR PÉREZ ORDERED LIPID/LIVERDR VICKY ORDERED TSH/CBCD/LIPID/CMP/UA/MIACREHow was Urine Obtained? [facility] [address] [place], [place], [address] MUCUS, URINE 0 SEEN {/hpf} (Normal) BACTERIA [...] (Normal) CLARITY Clear (Normal) COLOR Yellow (Normal) 48-Fbk-685052:44 URINE ALEX CULTURE-IDENTIFICATN Comments: PATIENT NOT FASTINGPERFORMED BY: [facility] [id number] Information: [id number] (00489) Result 1 CNSNSS (Abnormal) Comments: Coagulase negative [...] S Urine Final report Culture,Compreh (Abnormal) ensive 28-Izm-960551:10 Urinalysis, Office (25805) UA - LEUKOCYTE ESTERASE Small (Normal) UA - NITRITE Negative (Normal) URINE UROBILINGN JASMINE TIMED Normal mg/dL (Normal) UA - PROTEIN Negative mg/dL (Normal) UA - PH 7 (Normal) UA - BLOOD non-hemolyzed trace (Normal) UA - SPECIFIC GRAVITY 1.015 (Normal) UA - KETONES Negative mg/dL (Normal) UA - BILIRUBIN Negative (Normal) UA - GLUCOSE Negative (Normal) 67-Qfb-679866:16 Basic Metabolic Profile (BMP) Comments: [facility] [address] [place], [place], [address] ; will review at appt GAP 6 [...] 7-18 GLU 87 mg/dL (Normal) Range: 70-110 45-Mii-998411:25 URINE ALEX CULTURE (JASMINE Comments: PATIENT NOT FASTINGPERFORMED BY: [facility] Qmetlw4529 [facility] [id number] Information: [place] [place] [id number] COL COUNT) (67792) Result 1 NG36 (Normal) Comments: No growth in 36 - 48 hours. Urine Culture,Comprehensive Final report (Normal) 56-Upk-768709:44 Urinalysis, Office (82391) UA - LEUKOCYTE ESTERASE Negative (Normal) UA - NITRITE Negative (Normal) URINE UROBILINGN JASMINE TIMED Normal mg/dL (Normal) UA - PROTEIN Negative mg/dL (Normal) UA - PH 6.5 (Normal) UA - BLOOD Hemolyzed Trace (Normal) UA - SPECIFIC GRAVITY 1.010 (Normal) UA - KETONES Negative mg/dL (Normal) UA - BILIRUBIN Negative (Normal) UA - GLUCOSE Negative (Normal) 20-Ppu-838540:10 URINE ALEX CULTURE (JASMINE Comments: PATIENT NOT FASTINGPERFORMED BY: [facility] Nqttqi9[address] RoadFormerly [facility], [facility] [id number] Information: SRC[place] [place] [id number] COL COUNT) (66812) Antimicrobial MIHEAD (Normal) Comments: S = Susceptible; [...] mL (Abnormal) Urine Final report Culture,Comprehensive (Abnormal) 59-Yha-508289:24 Urinalysis, Office (77581) UA - LEUKOCYTE ESTERASE Small (Normal) UA [...] 02-Feb-20157:28 Comprehensive Metabolic Profil Comments: Test performed at:[facility] [address] [place] [address] GAP 6 (Normal) Range: 5-15 [...] 70-110 :28 Lipid Profile Comments: Test performed at:[facility] [address] [place], [place] [address] ; non-emergent till apt VLDL 18 mg/dL [...] :35 CBC W/Diff, Automated Comments: Test performed at:[facility] [address] [place] [address] ; non- emergent till apt [...] Range: 4.4-11.0 :35 CRP Comments: Test performed at:[facility] [address] [place] [address] C-REACTIVE PROT 38.60 mg/L (Abnormal) Range: 0.0-3.0 Comments: C-Reactive Protein (CRP) provides useful information for thediagnosis, therapy and monitoring of inflammatory processesand associated diseases. For the evaluation of Relative Riskfor Cardiovascular Dise ase, a High Sensitivity CRP (HSCRP)should be ordered. 94-Bum-03449:35 Culture, Urine Comments: Test performed at:[facility] [address] [facility] [place] [address] CUUR See Note (Normal) Comments: Urine CultureCulture exhibits no growth. :35 Erythrocyte Sed Rate Comments: Test performed at:[facility] [address] [facility] [place] [address] SED RATE 24 mm/h (Normal) Range: 0-30 83-Dxl-820773:11 URINE ALEX CULTURE-JASMINE COL Comments: PATIENT NOT FASTINGPERFORMED BY: [facility] [address] [place] [address] [id number] Information: SRC:[facility] R11891 COUNT (33387) Result 1 NG36 (Normal) Comments: No growth in 36 - 48 hours. Urine Culture,Comprehensive Final report (Normal) 72-Xay-341637:11 Urinalysis, Office (75540) UA - LEUKOCYTE ESTERASE Small (Normal) UA - NITRITE Negative (Normal) URINE UROBILINGN JASMINE TIMED Normal mg/dL (Normal) UA - PROTEIN Trace mg/dL (Normal) UA - PH 6 (Abnormal) UA - BLOOD non-hemolyzed trace (Normal) UA - SPECIFIC GRAVITY 1.020 (Normal) UA - KETONES Negative mg/dL (Normal) UA - BILIRUBIN Negative (Normal) UA - GLUCOSE Negative (Normal) 42-Lct-799288:57 V-Zoster IgG (Immunity) Comments: Test performed at:[facility] [address] [facility] [place] [address] VZOST IgG 92628 1894 {index} (Normal) Comments: Negative <135 Equivocal 135 - 165 Positive >165A positive result generally indicates exposure to thepathogen or adm inistration of specific immunoglobulins,but it is not indication of active infection or stageof disease.Performed at: [facility] [address] [id number] Director: Bernardino grady PhD, Phone: [phone]; ADDENDA: has been seen in office since drawn :48 CBC W/Diff, Automated Comments: Test performed at:[facility] [address] [place] [address] Absolute Lymph 1.40 {X10_3/ul} (Normal) [...] 4.2-5.4 WBC 4.3 K/mm3 (Abnormal) Range: 4.4-11.0 26-Gbw-79405:48 Comprehensive Metabolic Profil Comments: Test performed at:[facility] [address] [place] [address] GAP 4 (Abnormal) Range: 5-15 [...] 70-110 :48 Lipid Profile Comments: Test performed at:[facility] [address] [place] [address] VLDL 14 mg/dL (Normal) Range: 5-40 [...] Thyroid Stim Hormone (TSH) Comments: Test performed at:[facility] [address] [place] [address] TSH 1.57 {uIU/mL} (Normal) Range: 0.358-3.74 [...] CHOL 151 mg/dL (Normal) Comments: <200 mg/dL Bxiqlyfrv898-606 mg/dL Borderline>240 mg/dL High Risk :23 VZG 2963 {index} (Normal) Comments: Negative <135Equivocal 135 - 165Positive >165A positive result generally indicates exposure to thepathogen or administration of specific immunoglobulins,but it is not indicati on of active infection or stageof disease.Performed at: - [facility] [id number] Director: Bernardino Camargo PhD, Phone: [phone]; ADDENDA: normal and pt has apt tomorrow [...] CHOL 151 mg/dL (Normal) Comments: <200 mg/dL Tcdyjquzy585-071 mg/dL Borderline>240 mg/dL High Risk :17 VITD [...] CHOL 127 mg/dL (Normal) Comments: <200 mg/dL Uqlahmqzm033-388 mg/dL Borderline>240 mg/dL High Risk :49 CBCMD [...] CHOL 129 mg/dL (Normal) Comments: <200 mg/dL Svhpukpro887-258 mg/dL Borderline>240 mg/dL High Risk HDL 48 [...] 250 nm ol/L)Toxicity >100 ng/mL (250 nmol/L)Effective 201225-Jun-201259-Flw-793467:32 URINE ALEX CULTURE (JASMINE Comments: PATIENT NOT FASTINGPERFORMED BY: [facility] HospitalMlafle0546 [facility] [id number] Information: SRC:MARIELLE [id number] COL COUNT) (83908) Result 1 CNSNSS (Normal) Comments: Coagulase negative Staphylococcus species, not Staphylococcussaprophyticus.100 Colonies/mL .Based on resistance to penicillin and susceptibility to o xacillinthis isolate would be susceptible to:* Penicillinase-stable penicillins; such as: Cloxacillin Dicloxacillin Nafcillin* Beta-lactam/beta-lactamase inhibitor combinations; such as: [place] xicillin-clavulanic acid Ampicillin-sulbactam* Antistaphylococcal cephems; such as: Cefaclor Cefuroxime* Antistaphylococcal carbapenems; such as: Imipenem Meropenem S = Susceptibl e; I = Intermediate; R = Resistant P = Positive; N = Negative MICS are expressed in micrograms per mL Antibiotic RSLT#1 RSLT#2 RSLT#3 RSLT#4 Ciprofloxacin SGentamicin SLevofloxacin SNitrofurantoin SOxacillin SPenicillin RRifampin STetracycline STrimethoprim/Sulfa SVancomycin S Urine Final report Culture,Comprehensi (Normal) ve 31-Hrn-465413:35 Urinalysis, Office (36082) UA - BILIRUBIN Negative (Normal) UA - BLOOD Hemolyzed Large (Normal) UA - GLUCOSE Negative (Normal) UA - KETONES Small mg/dL (Normal) UA - LEUKOCYTE ESTERASE Large (Normal) UA - NITRITE Negative (Normal) UA - PH 7.0 (Normal) UA - PROTEIN 100 mg/dL (Normal) UA - SPECIFIC GRAVITY 1.020 (Normal) URINE UROBILINGN JASMINE TIMED Normal mg/dL (Normal) 9-Xtw-736548:19 Urinalysis, Office (79627) UA - BILIRUBIN Negative (Normal) UA - BLOOD Hemolyzed Trace (Normal) UA - GLUCOSE Negative (Normal) UA - KETONES Negative mg/dL (Normal) UA - LEUKOCYTE ESTERASE Negative (Normal) UA - NITRITE Negative (Normal) UA - PH 7.5 (Normal) UA - PROTEIN Negative mg/dL (Normal) UA - SPECIFIC GRAVITY 1.015 (Normal) URINE UROBILINGN JASMINE TIMED Normal mg/dL (Normal) 4-Wgj-800553:11 URINE ALEX CULTURE-IDENTIFICATN Comments: PATIENT NOT FASTINGPERFORMED BY: [facility] Jzkynr6648 [facility] [id number] Information: [id number] (91986) Result 1 NG36 (Normal) Comments: No growth [...] mg/dL Borderline >240 mg/dL High Risk :33 [facility] 0 SEEN {/hpf} (Normal) UBAC [...] . Signed:Mikhail Palencia MDNov2011 at 5:31:33 PM [id number] Signed TP/TP If you are the referring physician and would like to consult with theradiologist who provided this inter pretation, please contact Mikhail Palencia MD at [phone]. If this radiologist is unavailable, you will bedirected to another radiologist to assist. If you are a patient with a question regarding this re port, pleasecontactyour referring physician directly. Professional Interpretation Provided By: [employer], Phone , These documents contain legally protected [...] 04/08/12 1738 Sign by: Mikhail Palencia MD 7-Ult-005176:01 BILAT SCRN DIGITAL & CAD Radiology Report [...] Alonso M.D.March 05, 2012 at 2:05:30 PM [id number] Signed GP/GP If you are the referring physician and would like to consult with theradiologist who provided this interpretation, please contact Stuart Wills at [phone]. If this radiologist is unavailable, youwill be directed to another radiologist to assist. If you are a patient with a question regarding this report, pleasecontactyour referring physician directly. Professional Interpretation Provided By: [employer], Phone , These documents contain legally protected [...] Alonso M.D.March 05, 2012 at 2:52:24 PM [id number] Signed GP/GP If you are the referring physici an and would like to consult with theradiologist who provided this interpretation, please contact Stuart Wills at [phone]. If this radiologist is unavailable, youwill be directed to anot her radiologist to assist. If you are a patient with a question regarding this report, pleasecontactyour referring physician directly. Professional Interpretation Provided By: [employer], Phone , These documents contain legally protected [...] on 1457 Sign by: Michael Alonso MD 61-Lje-50494:26 CBCEM Comments: This patient requested that [facility] [employer] send to you acopy of [...] PLATELETS (Normal) Comments: This patient requested that [facility] [employer] send to you acopy of their Yearly Employee Health Risk Assessment.A copy of this report is also given to the patient so theycan follow up with your office if they choose. :26 EMP Comments: This patient requested that [facility] [employer] send to you acopy of their Yearly [...] 7-18 GLU 81 mg/dL (Normal) Range: 70-110 63-Ghn-58192:26 LIPID Comments: VITD WAS DRAWN YESTERDAY ON [...] Very High > or = 500 mg/dL 76-Klh-16491:26 UAEM Comments: This patient requested that [facility] [employer] send to you acopy of [...] (Normal) UCLAR CLEAR (Normal) UCOL YELLOW (Normal) 87-Eek-639258:01 VITD 45.5 ng/mL (Normal) Range: 30.0-100.0 Comments: Vitamin D deficiency has been defined by the [place] ofMedicine and an Endocrine Society practice guideline as alevel of serum 25-OH vitamin D less than 20 ng/mL (1,2).The Endocrine Society went on to further define vitamin Dinsufficiency as a level between 21 and 29 ng/mL (2).1. IOM ([place] of Medicine). 2010. Dietary reference intakes for calcium and D. [place]: The National Academies Press.2. Paxton CERON, Rojelio OSPINA, Cortney GARIBAY, et al. Evaluation, treatment, and prevention of vitamin D deficiency: an Endocrine Society clinical practice guideline. JCEM. 2010; 96(7): 1911-30.Performed at: [address] [place], [place] [id number] Director: Korin Harris MD, Phone: [phone] 69-Tde-984991:34 HEPATOBILIARY IMAGING Radiology Report See Note (Normal) [...] radiologist regarding this report, please call our 69E8aymomdp line @ Dictated on 05/31/11817 by Ehsan Vázquez DOTranscribed on 05/31/112030 by ITS IMPORTSign by Ehsan Vázquez DO on 05/31/112031 Sign by: Ehsan Vázquez DO 08-Lxr-165564:54 TOE(S),MIN 2 VIEWS Radiology Report See Note [...] regarding this rep ort, please call our 14V7vunsdso line @ Dictated on 05/30/11 1150 by ARNEL TORRESTranscribed on 05/30/112228 by ITS IMPORTSign by ARNEL TORRES on 05/30/112229 Sign by: ARNEL TORRES 78-Gyz-56254:21 GALLBLADDER Radiology Report See Note (Normal) Comments: [...] of the right kidney. The right kidn bhgxuvlphw96.6 x 4.7 x 4.0 cm. Normal renal [...] 7-18 GLU 76 mg/dL (Normal) Range: 70-110 33-Fcq-449475:02 TROPONIN-I < 0.02 ng/mL (Normal) Comments: TROPONIN-I EXPECTED VALUES <0.05 NEGATIVE 0.06 - 0.59 AT RISK OF MS > OR = 0.60 SUGGEST MS 81-Jqw-07497:11 ANKLE,MIN 3 VIEWS Radiology Report See Note [...] 12/14/10 1005 Sign by: GISSELLE GONZALES MD 24-Scs-58609:52 URINE ALEX CULTURE (JASMINE COL Comments: PATIENT NOT FASTINGPERFORMED BY: [facility] Pcxgip5016 [facility] [id number] COUNT) (43440) Result 1 NG36 (Normal) Comments: No growth in 36 - 48 hours. Urine Culture,Comprehensive Final report (Normal) :07 Urinalysis, Office (02500) UA - BILIRUBIN Negative (Normal) UA - [...] CHOL 150 mg/dL (Normal) Comments: <200 mg/dL Pbbmvvoym836-019 mg/dL Borderline>240 mg/dL High Risk HDL 56 [...] CHOL 150 mg/dL (Normal) Comments: <200 mg/dL Nbtrtbcwx855-067 mg/dL Borderline>240 mg/dL High Risk LDH 160 [...] (Normal) Comments: Result: NEGATIVE COLOR YELLOW (Normal) 50-Cav-948768:10 BILAT SCRN DIGITAL & CAD Radiology See Note Comments: Exam Number: [id number] MAMMOGRAPHY - BILATERAL SCREENING INDICATION:Routine annual screening [...] not delay biopsy of a clinicallysuspicious abnormality.ADDENDUM: [id number] HPBI/MDS MAMMOGRAPHY - BILATERAL SCREENING INDICATION:Routine annua [...] attach ing a ResultCode to this exam.ADDENDUM: [id number] HPBI/MDS Reported By: GISSELLE GONZALES M.D. 82-Fhu-642212:09 DEXA BONE DENSITY STUDY (HP) Radiology Report See Note Comments: Exam Number: [id number] CLINICAL:The patient is a 69-year-old female who is postmenopausal with pasthistory of hormone replacement therapy. History of fracture of O7svlema history of osteoporosis EXAMINA (Normal) TION:DUAL ENERGY X-RAY ABSORPTIOMETRY / DEXA. TECHNIQUE:Bone Density Measurements (BMD) of lumbar spine and bilateral hipswere obtained using a [employer] scanner. COMPARISON:March 24 999, October 29, 2002, [...] NIH Osteoporosis and Related Bone Diseases http://www.osteo.org2. Electric Meter Tester adventhealth porter Society for Clinical Densitometryhttp://www.iscd.org3. National Osteoporosis Foundation http://www.nof.org Reported By: GISSELLE GONZALES M.D. 24-Dec-19 VIT D,25 10984 39.0 ng/mL Range: 32.0-100.0 1012:08 (Normal) Comments: Recent studies consider the lower limit of 32.0 ng/mL to isabel threshold for optimal health.Sheng BURNETT. J Nutr. 2005 Jul;135(2):317- 22.Performed at: [facility] [place] [address]Lab Director: Korin Harris MD, Phone: [phone] 29-Oct-19 C DIF TOXIN/AG See Note Comments: C. DIFF ANTIGENS NEGATIVE 105:40 (Normal) 19-Kue-04653:40 CUL STOOL/SHIG SHIGA-TOXIN See Note (Normal) Comments: [...] Crytosporidium parvum,Cyclospora, or Microsporidia.__ [facility]. ORIGINAL REPORT ONFILE IN LAB CONTAINS ADDITIONAL TEST SITE INFORMATION. OVA/ PARASITES EXAM NO OVA, CYSTS, OR PARASITES FOUND. :40 WBC,STOOL See Note (Normal) Comments: FECAL WBCs NONE SEEN 64-Pbk-350142:25 ABDOMEN/PELVIS WITH CONTRAST Radiology Report See Note (Normal) Comments: Exam Number: [id number] CLINICAL:This is a 68-year-old female patient with [...] SED RATE 48 mm/h (Abnormal) Range: 0-30 31-Mhb-388558:55 URINE ALEX CULTURE (JASMINE Comments: PATIENT NOT FASTINGPERFORMED BY: [facility]Vmnydt5[facility] [id number] Information: SRC:UR [id number] COL COUNT) (74011) Result 1 NG36 (Normal) Comments: No growth in 36 - 48 hours. Urine Culture,Comprehensive Final report (Normal) 06-Dfo-479510:20 Urinalysis, Office (08799) UA - LEUKOCYTE ESTERASE Small (Normal) UA - NITRITE Negative (Normal) URINE UROBILINGN JASMINE TIMED 2 mg/dL (Normal) UA - PROTEIN Negative mg/dL (Normal) UA - PH 7.0 (Normal) UA - BLOOD Hemolyzed Trace (Normal) UA - SPECIFIC GRAVITY 1.015 (Normal) UA - KETONES Negative mg/dL (Normal) UA - BILIRUBIN Negative (Normal) UA - GLUCOSE Negative (Normal) 53-Vgd-45060:11 BREAST UNILATERAL US () Radiology Report See Note (Normal) Comments: Exam Number: [id number] CLINICAL:The patient is a 68-year-old female with [...] CHOL 147 mg/dL (Normal) Comments: <200 mg/dL Yrjhxaqxr429-520 mg/dL Borderline>240 mg/dL High Risk :03 LIVER ALB 4.2 g/dL (Normal) Range: 3.4-5.0 ALK P 66 U/L (Normal) Range: 50-136 ALT 29 U/L (Normal) Range: 12-78 AST 20 U/L (Normal) Range: 15-37 D BILI 0.09 mg/dL (Normal) Range: 0.00-0.30 T BILI 0.30 mg/dL (Normal) Range: 0.00-1.00 T PROT 7.9 g/dL (Normal) Range: 6.4-8.2 32-Oja-271052:41 Urinalysis, Office (12312) UA - LEUKOCYTE ESTERASE Trace (Normal) UA [...] Report See Note (Normal) Comments: Exam Number: [id number] CLINICAL: 68-year-old female with knee pain lateral [...] a full thickness radial tear of the barback ior horn of the medial meniscus extending [...] last examination. Reported By: John Alcocer M.D. 9-Dsb-078014:24 KNEE,4 OR MORE VIEWS (MT) Radiology Report See Note (Normal) Comments: Exam Number: [id number] CLINICAL:Pain X-RAY EXAMINATION RIGHT KNEE TECHNIQUE:4 view(s) [...] change. Osteopenia. Reported By: ARIADNA PERAZA M.D. 3-Cse-250674:23 L/S SPINE,MIN 4 VIEWS (MT) Radiology Report See Note (Normal) Comments: Exam Number: [id number] CLINICAL:Low back pain, radiculopathy X-RAY EXAMINATION: LUMBAR [...] acute fracture. Reported By: ARIADNA PERAZA M.D. 8-Vhv-426824:00 EMP URINALYSIS BILIRUBIN URINE SeeNote (Normal) Comments: [...] Range: 0.2 - 1.0 COLOR YELLOW (Normal) 8-Hls-194734:00 ROUTINE UA BILIRUBIN URINE SeeNote (Normal) Comments: [...] 6.4-8.2 URIC 4.3 mg/dL (Normal) Range: 2.6-6.0 73-Hid-10134:31 DEXA BONE DENSITY STUDY () Radiology Report See Note (Normal) Comments: Exam Number: [id number] BONE DENSITOMETRY HISTORYOsteopenia. TECHNIQUE Bone densitometry of the lumbar spine and both hips is now beingperformed. The best criteria for evaluation of osteoporosis is theT-value, which represents the comparison of the patient's bone mass leigh expected peak bone mass. For most patients, the mean T-value of X8defmmxm L4 is used to evaluate the lumbar [...] density is measured at 7.2% less than db0204.The T-valu e of the right femoral neck is -2 which is in the range ofosteopenia.The T- value of the total right hip is -1.7 which is in the range ofosteopenia. IMPRESSIONThere is osteopenia of the lumbar spine and both hips. Reported By: GISSELLE GONZALES M.D. 93-Dqb-31416:54 BREAST UNILATERAL US () Radiology Report See Note (Normal) Comments: Exam Number: [id number] TARGETED LEFT BREAST ULTRASOUND HISTORYAbnormal mammogram. High-resolution [...] Greene's office and the office was called [id number] hours December 22, 2008. Reported By: GISSELLE GONZALES M.D. 30-Qos-562691:35 UNILAT LT DIAG DIGITAL & CAD Radiology Report See Note (Normal) Comments: Exam Number: [id number] MAMMOGRAM, UNILATERAL LEFT DIAGNOSTIC DIGITAL AND CAD [...] 1992 (MQSA). The mammograms werealso examined w [employer] computer-aided detection software ([place], [employer] Reported By: GISSELLE GONZALES M.D. 45-Lrh-196626:30 BILAT SCRN DIGITAL & CAD Radiology Report See Note (Normal) Comments: Exam Number: [id number] MAMMOGRAM, BILATERAL SCREENING DIGITAL AND CAD HISTORYRoutine [...] mammograms werealso examined with computer-aided detection software ([employer] Reported By: GISSELLE GONZALES M.D. 04-Edz-715619:37 BMP BUN 15 mg/dL (Normal) Range: 7-18 [...] g/dL (Normal) Range: 6.4-8.2 :11 AT3 F/I 16709 AT3 AG, IMMUNOL 131 % (Abnormal) Range: 75-130 AT3 FUNCT 15582 131 % (Normal) Range: 75-135 :11 PROT C 912546 PROT C,[id number] 169 % (Abnormal) Range: 74-151 Comments: Performed At: [address] [id number] PROTEIN C [address] 106 % (Normal) Range: 70-140 :11 PROT S 606619 PROTEIN S, FREE 107 % (Normal) Range: 56-124 PROTEIN S, FUNC 82 % (Normal) Range: 60-145 PROTEIN S,TOTAL 137 % (Normal) Range: 58-150 :38 A-CARDIO 201060 Comments: ORDER ALSO STATES ANTIPHOSPHOLIPIDS, WHICH IS [...] mm/h (Normal) Range: 0-30 :38 FAC II 286407 Comments: ORDER ALSO STATES ANTIPHOSPHOLIPIDS, WHICH IS A SYNONYM OFANTICARDIOLIPIN FACTOR II,DNA Comment (Normal) Comments: NEGATIVENo mutation identified.Comment:A point mutation (M33227M) in the Factor II (prothrombin)gene is the [...] protein C and protein S. :38 FACVL 646155 Comments: ORDER ALSO STATES ANTIPHOSPHOLIPIDS, WHICH IS [...] , elevatedhomocysteine levels, or a Factor II/prothrombin mutation(Q97105H). Contact you r local [facility] for information [...] mg/dL VLDL 31 mg/dL (Normal) Range: 5-40 47-Nsu-488483:35 CULTURE, URINE URINE CULTURE See Note (Normal) Comments: Predominant colony type being a gram positive trevor, probableLactobacillus species. COLONY COUNT 50,000-80,000 ORGANISM 1: MIXED GRAM POSITIVE ORGANISMS 77-Uet-564757:35 ROUTINE UA BILIRUBIN URINE SeeNote (Normal) Comments: [...] 0.2 EU/dl (Normal) Range: 0.2 - 1.0 40-Trk-34932:48 Urinalysis, Office (81077) UA - BILIRUBIN Negative (Normal) UA - BLOOD Negative (Normal) UA - GLUCOSE Negative (Normal) UA - KETONES Negative mg/dL (Normal) UA - LEUKOCYTE ESTERASE Trace (Normal) UA - NITRITE Negative (Normal) UA - PH 6.5 (Normal) UA - PROTEIN Negative mg/dL (Normal) UA - SPECIFIC GRAVITY 1.005 (Normal) URINE UROBILINGN JASMINE TIMED 2 mg/dL (Normal) 5-Nym-634749:04 BILAT SCRN DIGITAL & CAD Radiology Report See Note (Normal) Comments: Exam Number: [id number] MAMMOGRAM, BILATERAL SCREENING DIGITAL AND CAD HISTORYRoutine [...] werea lso examined with computer-aided detection software ([employer].). Reported By: GISSELLE GONZALES M.D. 3-Ogv-532039:41 DEXA BONE DENSITY STUDY (HP) Radiology Report See Note (Normal) Comments: Exam Number: [id number] BONE DENSITOMETRY HISTORYOsteopenia. TECHNIQUE Bone densitometry of [...] density is measured at 0.2% less than ly1531 and 0.1% more than in 2005. IMPRESSIONThere [...] 2.6-6.0 VLDL 21 mg/dL (Normal) Range: 5-40 41-Ayl-66213:19 EMP URINALYSIS BILIRUBIN URINE SeeNote (Normal) Comments: [...] {mg/24_hr} (Normal) Range: 1.8-6.7 Comments: Performed At: [employer] [id number] VMA,UR 3.4 mg/L (Normal) :16 ALDOST,U24 4291 Comments: 24 H URINE TV = 2580 ML ALDOSTERONE,U24 3 {ug/24_hr} (Normal) Range: 2-21 Comments: 1 mo. 1 - 11 1- 12 mos. 1 - 22 1- 16 yrs. 2 - 16 Adult Ranges Normal diet 2 - 21 Low salt 17 - 44 High salt 0 - 14Performed At: [address] [id number] ALDOSTERONE,UR 1 ug/L (Normal) 50-Hxa-687625:17 BRAIN/HEAD W/WO CONTRAST Radiology Report See Note (Normal) Comments: Exam Number: [id number] CT SCAN OF BRAIN HISTORYHeadache. Scans were [...] :51 CBC With Differential/Platelet Comments: PERFORMED BY: [facility] Ueqyvi5352 [facility] [id number] Baso (Absolute) 0.1 {x10E3/uL} (Normal) Range: 0.0-0.2 [...] Comp. Metabolic Panel (14) Comments: PERFORMED BY: [facility]Ukmbem1353 [facility] [id number] A/G Ratio 1.5 (Normal) Range: 1.1-2.5 Albumin, [...] Sedimentation 4 mm/h (Normal) Comments: PERFORMED BY: [facility] [id number] :51 Rate-Westergren Range: 0-30 2-Xhd-314799:29 CULTURE, URINE URINE CULTURE See Note {CFU/mL} (Normal) Comments: COLONY COUNT >100,000 ORGANISM 1: ENTEROCOCCUS FAECALIS ENTEROCOCCUS FAECALIS: REACTION CIPROFLOXACIN GP $$$ <=0.5 S LEVOFLOXAC IN $$ <=1 S NITROFURANTOIN $ <=32 S PENICILLIN G (ENTEROCOCCUS) $$ 2 S TETRACYCLINE $$ <=1 S VANCOMYCIN $$ <=0.5 S 5-Ghr-541555:29 ROUTINE UA BILIRUBIN URINE SeeNote (Normal) Comments: [...] EASY BRUISABILITY OF SKIN Planned Observations TSH (78979)Indication: Hypercholesterolemia On: :51 Request URINALYSIS, W/ MICRO (91920)Indication: Essential hypertension On: : Request MICROALBUMIN: CREATININE RATIO (82579) AND (92070)Indication: Essential hypertension On: :51 Request METABOLIC PANEL, COMPREHENSIVE (39090)Indication: Essential hypertension On: :51 Request LIPID PANEL (82695)Indication: Essential hypertension On: :51 Request CBC W/AUTO DIFF WBC (71584)Indication: Essential hypertension On: :51 Request Metabolic Panel, Basic (12567)Indication: Essential hypertension On: 61-Gno-208676:32 Request Comments: 2 weeks Vitamin D Hydroxy (94277)Indication: Osteopenia On: :23 Request URINALYSIS, W/ MICRO (04455)Indication: Essential hypertension On: :23 Request CBC W/AUTO DIFF WBC (27193)Indication: Essential hypertension On: :23 Request METABOLIC PANEL, COMPREHENSIVE (38097)Indication: Essential hypertension On: :23 Request LIPID PANEL (17382)Indication: Hypercholesterolemia On: :22 Request SED RATE ERYTHROCYTE (95116)Indication: Abdominal pain, acute, generalized On: :47 Request C-REACTIVE PROTEIN (35410)Indication: Abdominal pain, acute, generalized On: :47 Request CBC with auto diff (08459)Indication: Abdominal pain, acute, generalized On: :46 Request URINALYSIS, W/ MICRO (01794)Indication: Essential hypertension On: :27 Request LIPID PANEL (65612)Indication: Hypercholesterolemia On: :27 Request METABOLIC PANEL, COMPREHENSIVE (90653)Indication: Essential hypertension On: 1-Wkm-260717:26 Request VARICELLA-ZOSTER ANTBODY (21067)Indication: Hypercholesterolemia On: 63-Gqx-758747:58 Request TSH (06476)Indication: Anxiety associated with depression On: :12 Request LIPID PANEL (21271)Indication: Hypercholesterolemia On: :12 Request CBC W/AUTO DIFF WBC (22716)Indication: Essential hypertension On: :12 Request METABOLIC PANEL, COMPREHENSIVE (15815)Indication: Essential hypertension On: :12 Request VARICELLA-ZOSTER ANTBODY (61596)Indication: screen On: 85-Nkf-959542:59 Request CBC WITH MANUAL DIFF (13834)Indication: Essential hypertension On: 32-Szv-000103:59 Request LIPID PANEL (88537)Indication: Hypercholesterolemia On: 42-Ugb-637537:58 Request METABOLIC PANEL, COMPREHENSIVE (26399)Indication: Essential hypertension On: 83-Eeq-596350:58 Request Vitamin D Hydroxy (84827)Indication: Osteopenia On: :33 Request METABOLIC PANEL, COMPREHENSIVE (94322)Indication: Essential hypertension On: :33 Request LIPID PANEL (64158)Indication: Hypercholesterolemia On: :33 Request METABOLIC PANEL, COMPREHENSIVE (94337)Indication: Essential hypertension On: 74-Uma-89361:57 Request LIPID PANEL (11002)Indication: Hypercholesterolemia On: 76-Sif-79303:56 Request Vitamin D Hydroxy (14094)Indication: Anxiety associated with depression On: 01-Ukc-154342:51 Request CBC WITH MANUAL DIFF (33083)Indication: Essential hypertension On: :51 Request METABOLIC PANEL, COMPREHENSIVE (76600)Indication: Essential hypertension On: 77-Oqj-914619:51 Request TSH (54789)Indication: Anxiety associated with depression On: 57-Olh-212640:51 Request LIPID PANEL (32374)Indication: Hypercholesterolemia On: 00-Vre-384773:50 Request CBC WITH MANUAL DIFF (05094)Indication: Essential hypertension On: :30 Request METABOLIC PANEL, COMPREHENSIVE (09351)Indication: Essential hypertension On: : Request LIPID PANEL (65733)Indication: Hypercholesterolemia On: : Request URINALYSIS, W/ MICRO (55729)Indication: Essential hypertension On: :08 Request CBC WITH MANUAL DIFF (37378)Indication: Essential hypertension On: :08 Request METABOLIC PANEL, COMPREHENSIVE (35237)Indication: Essential hypertension On: :06 Request LIPID PANEL (71085)Indication: Hypercholesterolemia On: :06 Request LIPID PANEL (15696)Indication: Hypercholesterolemia On: : Request CBC WITH MANUAL DIFF (59738)Indication: Essential hypertension On: :28 Request METABOLIC PANEL, COMPREHENSIVE (85668)Indication: Essential hypertension On: :28 Request METABOLIC PANEL, COMPREHENSIVE (88996)Indication: Essential hypertension On: 17-Vym-141660:48 Request Vitamin D Hydroxy (52498)Indication: Depression On: 37-Inn-845380:48 Request LIPID PANEL (97478)Indication: Hypercholesterolemia On: 40-Nap-700738:47 Request CBC WITH MANUAL DIFF (49350)Indication: Other chest pain On: 68-Fhm-792006:19 Request METABOLIC PANEL, COMPREHENSIVE (24052)Indication: Other chest pain On: 19-Mnh-657550:18 Request ASSAY, TROPONIN, QUANTITATIVE (aka Troponin I) (72791)Indication: Other chest pain On: 72-Ptw-263585:18 Request Comments: stat CALCIFEDIOL (90697)Indication: Eczema (Renamed from Dermatitis, eczematoid) On: 78-Asd-715203:34 Request OVA & PARASITE DIR SMEAR (16966)Indication: Diarrhea (Renamed from D (diarrhea)) On: 15-Dtj-926274:11 Request LEUKOCYTE COUNT, FECAL (64350)Indication: Diarrhea (Renamed from D (diarrhea)) On: 20-Rcd-256130:10 Request C.Difficile, Stool (69431)Indication: Diarrhea (Renamed from D (diarrhea)) On: 01-Rzu-177562:10 Request ALEX CULTURE-STOOL (34689)Indication: Diarrhea (Renamed from D (diarrhea)) On: 05-Zus-972241:10 Request SED RATE ERYTHROCYTE (42904)Indication: Abdominal pain, acute, left lower quadrant On: 48-Hha-254139:10 Request C-REACTIVE PROTEIN (57539)Indication: Abdominal pain, acute, left lower quadrant On: 52-Jkn-868590:10 Request URINALYSIS, W/ MICRO (87581)Indication: Abdominal pain, acute, left lower quadrant On: 51-Hsw-461917:10 Request METABOLIC PANEL, COMPREHENSIVE (34495)Indication: Abdominal pain, acute, left lower quadrant On: 26-Pfw-779540:10 Request CBC WITH MANUAL DIFF (13698)Indication: Abdominal pain, acute, left lower quadrant On: 20-Vtn-316148:10 Request METABOLIC PANEL, COMPREHENSIVE (41972)Indication: Essential hypertension On: 35-Jty-601902:47 Request HEPATIC FUNCTION PANEL (10778)Indication: Hypercholesterolemia On: 08-Pop-208011:47 Request LIPID PANEL (35522)Indication: Hypercholesterolemia On: 45-Npz-364817:47 Request Vitamin D Hydroxy (90586)Indication: Osteopenia On: 46-Crn-874242:46 Request LIPID PANEL (88990)Indication: Hypercholesterolemia On: :38 Request HEPATIC FUNCTION PANEL (36251)Indication: Hypercholesterolemia On: :38 Request Metabolic Panel, Basic (13404)Indication: DISORDERS, ORGANIC, SLEEP RELATED LEG CRAMPS On: 44-Ojy-550966:17 Request URINALYSIS W/O MICRO (74243)Indication: Essential hypertension On: :48 Request TSH (34157)Indication: Essential hypertension On: 4-Twg-808691:48 Request METABOLIC PANEL, COMPREHENSIVE (94262)Indication: Essential hypertension On: :48 Request CBC WITH MANUAL DIFF (80476)Indication: Essential hypertension On: :48 Request LIPID PANEL (54355)Indication: Hypercholesterolemia On: 6-Agz-745752:48 Request CBC WITH MANUAL DIFF (27529)Indication: Anemia, unspecified On: :51 Request LIPID PANEL (91215)Indication: Hypercholesterolemia On: :31 Request HEPATIC FUNCTION PANEL (38082)Indication: Hypercholesterolemia On: :41 Request LIPID PANEL (88204)Indication: Hypercholesterolemia On: :41 Request SED RATE ERYTHROCYTE (18032)Indication: Headache (Renamed from Cephalalgia) On: :40 Request METABOLIC PANEL, COMPREHENSIVE (85525)Indication: Headache (Renamed from Cephalalgia) On: :39 Request CBC WITH MANUAL DIFF (84973)Indication: Headache (Renamed from Cephalalgia) On: :39 Request CBC WITH MANUAL DIFF (36292)Indication: EASY BRUISABILITY OF SKIN On: :59 Request PTT (ACTIVATED PARTIAL THROMBOPLASTIN TIME) (56181)Indication: EASY BRUISABILITY OF SKIN On: :59 Request PT (PROTHROMBIN TIME) (20340)Indication: EASY BRUISABILITY OF SKIN On: :59 Request HEPATIC FUNCTION PANEL (46522)Indication: Hypercholesterolemia On: :54 Request LIPID PANEL (03020)Indication: Hypercholesterolemia On: :54 Request Planned Encounters Medical; 4 Month FU - On: 18-Apr-2018 10:30 [facility] Catrina Perry DO, DO, Kathleen Planned Procedures CT OF NECK WITHOUT THEN WITH On: 09-Apr-2018 Intent INTRAVENOUS CONTRAST (58257)By: Comments: include thyroid Acacia Whaley CNP Ultrasound - ThyroidBy: Jovana OJEDA, On: 09-Apr-2018 Intent Acacia Wang Comments: attetion soft tissue rt side of neck Flu Vaccine (Quadrivalent) 72898Wf: On: 13-Mar-2018 Intent Ladi Max Comments: Lot #[id number]-L dltd, IMDose prefilled syringegiven by:SABINA Mclain reviewed and ABN signed FLAT PLATE (75366)By: Jovana OJEDA, On: 19-Dec-2017 Intent Acacia Wang ELECTROCARDIOGRAM, COMPLETE (ECG) On: 12-Dec-2017 Intent (15093)By: Catrina Perry DO Comments: nsr no acute chg Catrina Perry DO Bone Density StudyBy: Tessie Greene DO On: 10-May-2015 Intent A Comments: screening ADMINISTRATION OF INFLUENZA VIRUS On: 05-Feb-2015 Intent VACCINE (G0008)By: Tessie Greene DO Flu Vaccine (Quadrivalent) 68915Dj: On: 05-Feb-2015 Intent Tessie Greene DO Comments: Lot:[id number]:09/01/15Dose:0.5mLRoute:IMSite:L DltdGiven By:MARTY signed MAMMOGRAM, SCREENING, BOTH BREAST On: 05-Feb-2015 Intent (26448)By: Tessie Greene DO Comments: nov DEXA SCAN AXIAL SKELETON (46656)By: On: 05-Feb-2015 Intent Tessie Greene DO Comments: nov Solu -Medrol Injection, 125 mg On: 09-Dec-2014 Intent (J2930)By: Acacia Whaley CNP Comments: lot:[id number]:route:IMdose:125MGsite: R glutGiven by: ROSANGELA Gamble MAMMOGRAM, SCREENING, BOTH BREAST On: 13-Mar-2014 Intent (79744)By: Tessie Greene DO ADMINISTRATION OF INFLUENZA VIRUS On: 13-Mar-2014 Intent VACCINE (G0008)By: Tessie Greene DO FLU VAC, SPLIT, >3 YEARS, INTRAMUSC On: 13-Mar-2014 Intent (95435)By: Tessie Greene DO Comments: lot: [id number]: 12-01-13site/route: L del/IMamt: 0.5mLVIS signed when applicableROSANGELA Villa Eprescribed prescriptions (G8553)By: On: 16-Sep-2013 Intent Tessie Greene DO Eprescribed prescriptions (G8553)By: On: 18-Mar-2013 Intent Libby Herndon FLU VAC, SPLIT, >3 YEARS, INTRAMUSC On: 20-Feb-2013 Intent (39746)By: Fallon Carranza Comments: Lot:[id number]:Dose:0.5mLRoute:IMSite:L DltdGiven By:MARTY signed IMMUNIZ ADMNIN, 1 VAC, SNGL/COMBO On: 20-Feb-2013 Intent (96348)By: Fallon Carranza MAMMOGRAM, SCREENING, BOTH BREASTS On: 31-Dec-2012 Intent (16218)By: Tessie Greene DO Eprescribed prescriptions (G8553)By: On: 11-Nov-2012 Intent Libby Herndon Eprescribed prescriptions (G8553)By: On: 23-Sep-2012 Intent Libby Herndon EKG (41609)By: Libby Herndon On: 21-Aug-2012 Intent Comments: ekg showed normal sinus rhythym, normal axis, no acute st/t wave changes Eprescribed prescriptions (G8553)By: On: 25-Jun-2012 Intent Tanya Bermudez LPN PNEUM VAC ADLT/IMUMNOSPR, SBC/INTRM On: 03-May-2012 Intent (60287)By: Tessie Greene DO Comments: Lot:[id number]:3--14Dose:0.5mLRoute:IMSite:L armGiven By:AGA ADMINISTRATION OF PNEUMOCOCCAL On: 03-May-2012 Intent VACCINE (G0009)By: Tessie Greene DO Eprescribed prescriptions (G8553)By: On: 03-May-2012 Intent Libby Herndon Rjsrhualg-Rhu-Cexhz (55803)By: Ciesa On: 08-Apr-2012 Intent RUSTY Lori DXA, BONE DENSITY, AXIAL SKELETON On: 30-Jan-2012 Intent (60765)By: Tessie Greene DO MAMMOGRAM, SCREENING, BOTH BREASTS On: 30-Jan-2012 Intent (03722)By: Tessie Greene DO IMMUNIZ ADMNIN, 1 VAC, SNGL/COMBO On: 30-Jan-2012 Intent (45369)By: Megan Phillips LPN Comments: Lot/Exp: [id number], 11/2011Given in L Dltd, IMPrefilled SyringeBy ROEL Guzman FLU VAC, SPLIT, >3 YEARS, INTRAMUSC On: 30-Jan-2012 Intent (40957)By: Megan Phillips LPN Breast Screening - BilateralBy: [...] DO, Tessie A On: 01-May-2011 Intent EKG (15466)By: Libby Herndon On: 01-May-2011 Intent Comments: ekg showed normal sinus rhythym, normal axis, no acute st/t wave changes poor r wave progression unchanged TDAP VACCINE >7 IM (95415)By: On: 01-May-2011 Intent Libby Herndon Comments: work FLU VAC, SPLIT, >3 YEARS, INTRAMUSC On: 01-May-2011 Intent (74043)By: Libby Herndon Comments: work DXA, BONE DENSITY, AXIAL SKELETON On: 09-Feb-2011 Intent (72882)By: Monserrat Granado LPN MAMMOGRAM, SCREENING, BOTH BREASTS On: 09-Feb-2011 Intent (71490)By: Monserrat Granado LPN Radiology - Ankle - LeftBy: Ciesa On: 14-Dec-2010 Intent RUSTY Lori Comments: call wet read to Acacia Whaley Eprescribed prescriptions (G8553)By: On: 15-Nov-2010 Intent Fast DO, Tessie A CT - Abdomen & PelvisBy: Fast DO, On: 26-Oct-2009 Intent Tessie A Comments: tomorrow call wet read EKG (80233)By: Libby Herndon On: 30-Aug-2009 Intent Comments: do [...] DO, On: 07-Jun-2007 Intent Tessie Soler EKG (89625)By: Tessie Greene DO On: 28-Apr-2007 Intent Comments: ordered to be done at the hospital CT - Brain/HeadBy: Tessie Greene DO On: 20-Mar-2007 Intent Comments: with and without contrast- please do stat and call wet read IMMUNIZ ADMNIN, 1 VAC, SNGL/COMBO On: 04-Apr-2006 Intent (61527)By: Libby Herndon PNEUM VAC ADLT/IMUMNOSPR, SBC/INTRM On: 04-Apr-2006 Intent (75991)By: Libby Herndon Comments: Lot #:Expiration date:Amount given:Route: IMSite given:LEFT DELTOIDGiven by: EDILMA Weinberg IMMUNIZ ADMNIN, 1 VAC, SNGL/COMBO On: 04-Apr-2006 Intent (20925)By: Tessie Greene DO PNEUM VAC ADLT/IMUMNOSPR, SBC/INTRM On: 04-Apr-2006 Intent (82445)By: Tessie Greene DO Planned Medications INJECTION, METHYLPREDNISOLONE [...] The patient does have durable power of divorce attorney and living will. The patient has [...] The patient does have durable power of divorce attorney and living will. The patient has noticed nothing from the geriatic depre ssion scale. Other providers contributing to the patient's care are other: (hearing and eye drLatrell herrera and Dr. Zamora). Note for Annual Medicare Exam: NO labwork done for today and pt had her well woman exam done with CLIENT CARE REPRESENTATIVE.-weight down trying - her bp up little [...] she hasnt needed too- more active in uatsdin and that has h elped- no gerd [...] effective than benicar- she said mood in [facility] is reasonable- doesnt want to change- - [...] to get back on track and joining [employer] at [employer]- her mood is pretty good and brother [...] with welbutrin more energy and seeing the nutritionalist-- no issues withthe crestor- wever since cortison [...] for chronic medical issues: her brother in [facility] and got a pressure sore- [...] df's recieved documents from Dr. Nichole at [facility]). Note for Follow up, Laboratory Test [...] peumovax- needs florina bloodwork- gettting back on [employer], [ADDITIONAL REASON] Follow up for chronic [...] in the past ,difficulty sleeping ,drug abuse ,weed burner awakening ,episodes of spontaneous crying ,e xcessive [...]
--- OUTSIDE RECORDS SUMMARY | 2018-08-24 15:51 | XMS RPT_ITS | Continuity of Care Document ---
:1940 External Reference #:[id number] Author Organization [facility] Address [address] [place] [address] Phone Care Team Providers Name Role Phone Catrina Perry DO Unavailable Dr. Addison Kimball Unavailable [facility] PLASCENCIA, Dr. Janes Dougherty Unavailable Sadia Goel Unavailable Unavailable Carli Marks Unavailable Unavailable Libby Herndon Unavailable Unavailable Fallon Carranza Unavailable Unavailable Final Cleaner, System Unavailable Unavailable Carolin Garber LPN Unavailable Unavailable [employer] PROFESSOR, Lori Unavailable Unavailable Unavailable Problems Name Dates [...] attention rt neck and CT with contrast if not enough information Status: Active Post-menopausal (Z78.0, V49.81) Status: Active [...] 1 qd (20 MG) Active CITRACAL MAXIMUM, 106-191ZD-BPEP (Oral Tablet) 1 tab bid (315-250 MG-UNIT) [...] Liquid) for 0 days Refills: 0 Ordered:31-Dec-2017 Mirela Garber LPN Omeprazole 20 MG Oral Capsule Delayed Release [...] days Quantity: 1 {Suspension} Refills: 0 Ordered:08-Aug-2010 Vicky BROUSSARD Catrina Romero DO Start : 23-Jun-2010 End : 03-Jul-2010 Inactive [...] 90 {Tablet_ER_24HR} Refills: 0 Ordered:13-Nov-2011 Tanya Bermudez ROEL Start : 13-Nov-2011 End : 11-Feb-2012 Inactive ZITHROMAX Z-KATHARINE, 250MG (Oral Tablet) 1 Tablet TAD for 0 days Quantity: 1 {Package(s)} Refills: 0 Ordered:30-Jan-2012 Alan SEVILLAMegan Start : 21-Jul-2011 End : 30-Jan-2012 Inactive [...] days Quantity: 90 {Tablet} Refills: 3 Ordered:30-Jan-2012 Fast DO Tessie A Start : 30-Jan-2012 End : [...] days Quantity: 90 {Tablet} Refills: 3 Ordered:03-May-2012 Fast DO Tessie A Start : 03-May-2012 End : [...] as of 01-May-2011 Procedures Date Value Details 09-Apr-2018 Thyroid Result: Comments: See Note; NOTES: [facility] Imaging Services [address] [place] [address] Thyroid MR#: [id number] Acct: [id number] Name: HERMAN LEONARD Rep #: [id number] : [birth year] 45 F 77 From: Michael Alonso MD PCP: Catrina Perry DO Status: REG CLI Study: Thyroid Date of Exam: 04/09/18 Exam# [id number] Ordering Dr: Acacia Whaley CEOJesus STUDY: THYROID ULTRASOUND REASON FOR EX AM: [...] Alonso MD at 15:[address] Tel [phone], Service support , CC: Acacia Whaley CEO; Catrina Perry DO Valve Seater Operator: Signed 19-Dec-2017 Abdomen Single View Result: Comments: See Note; NOTES: [facility] Imaging Services [address] [place] [address] Abdomen Single View MR#: [id number] Acct: [id number] Name: HERMAN LEONARD Bianca Rep #: [id number] D OB: 1940 F 76 From: Chris Rachel MD PCP: Catrina Perry DO Status: REG CLI Study: Abdomen Single View Date of Exam: 12/19/17 Exam# [id number] Ordering Dr: Acacia Whaley STUDY: X-RAY - [...] , Service support , CC: Acacia Whaley CEO; Catrina Perry DO Valve Seater Operator: Signed 20-May-2015 Dexa Bone Density Study (HP) Result: Comments: See Note; NOTES: [facility] Imaging Services [address] [place] [address] Verdana 4d Dexa Bone Density Study () MR#: [id number] Acct: [id number] Name : HERMAN LEONARD Rep #: [id number] : 1940 F 74 From: Michael Alonso MD PCP: Tessie Greene DO Status: REG CLI Study: Dexa Bone Density Study (HP) Date of Exam: 05/20/15 Exam# [id number] Zulema carney Dr: Tessie Greene DO STUDY: [...] Michael Alonso MD at 10:30 EST Tel [phone], Service support [phone], CC: Jailyn Yang MD; Tessie Greene DO Valve Seater Operator: Signed 06-Apr-2015 Bilat Scrn Digital AND CAD Result: Comments: See Note; NOTES: [facility] Imaging Services [address] [place] [address] Verdana 4d Bilat Scrn Digital AND CAD MR#: [id number] Acct: [id number] Name: HERMAN LEONARD Rep #: [id number] : 1940 F 74 From: Michael Alonso MD PCP: Tessie Greene DO Status: REG CLI Study: Bilat Scrn Digital AND CAD Date of Exam: 04/06/15 Exam# [id number] Ordering D r: Tessie Greene DO MAMMOGRAPHY [...] Michael Alonso MD at 7:54 EST Tel [phone], Service support [phone], CC: Tessie Greene DO Valve Seater Operator: Signed 05-Feb-2015 EKG (47089) Comments: ekg showed normal sinus rhythym, normal axis, no acute st/t wave changes Result: [MEASUREMENTS ANALYSIS] Date of Test: 02/05/2015 09:47:50; Heart Rate: 58; MD Interval: 156; QRS: 93; QT Interval: 420; Corrected QT Interval (QTc): 417; P Wave [place]: 31; QRS Wave [place]: 31; T Wave [place]: 44; Blood Pressure: 122/84 [ECG DIAGNOSTIC STATEMENTS] Date of Test: 02/05/2015 09:47:50; Summary: Sinus Bradycardia WITHIN NORMAL LIMITS 27-Mar-2014 Bilat Scrn Digital & CAD Result: Comments: See Note; NOTES: [facility] Imaging Services [address] [place] [address] Breast Imaging Report MR#: [id number] Acct: [id number] Name: HERMAN LEONARD Rep #: [id number] : 1940 F 73 From: Michael Alonso MD PCP: Tessie Greene DO Status: REG CLI Exam# [id number] Ordering Dr: Tessie Greene DO MAMMOGRAPHY - [...] Michael Alonso MD at 9:36 EDT Tel [phone], Service support [phone], CC: Tessie Greene DO Valve Seater Operator: Signed 26-Mar-2013 Bilat Scrn Digital & CAD Result: Comments: See Note; NOTES: [facility] Imaging Services [address] [place] [address] Breast Imaging Report MR#: [id number] Acct: [id number] Name: HERMAN LEONARD Rep #: [id number] : 1940 F 72 From: Michael Alonso MD PCP: Tessie Greene DO Status: REG CLI Exam# [id number] Ordering Dr: Tessie Greene DO MAMMOGRAPHY - [...] March 26, 2013 at 2:33:33 PM EDT [phone] Electronically Signed GP/GP If you are the referring physician and would like to consult with the radiologist who pr ovided this interpretation, please contact Michael Alonso M.D. at [phone]. If this radiologist is unavailable, you will be directed to another radiologist to assist. If you are a patient w ith a question regarding this report, please contact your referring physician directly. Professional Interpretation Provided By: [facility], Phone , These documents contain legally protected [...] of these documents. CC: Tessie Greene DO Valve Seater Operator: Signed Immunization Name Dates Details Pneumococcal (2 years and up) on: 04-Apr-2006 Pneumococcal (2 years and up) on: 04-Apr-2006 Comments: Lot #:Expiration date:Amount given:Route: IMSite given:LEFT DELTOIDGiven by: JESSICA Weniberg Family History Unknown Family Member Name Dates Details Father Comments: [place] Status: Active Mother Comments: CHF Status: Active Paternal Grandmother Comments: ABD CA Status: Active Social History Name Dates Details Alcohol Use Comments: Occasional alcohol use Status: Active Non Smoker/No Tobacco Use Status: Active Tobacco use: Never smoker. Status: Active Smoking Status Name Dates Details Never smoker Vital Signs Date Test Result Details 7-Qiu-760672:59 Temperature 97.4 f Comments: Method: Temporal Pulse [...] kg/m2 Body Surface Area Calculated 1.58 m2 93-Jmt-130866:52 Temperature 97.6 f Pulse 68 /min Comments: [...] 0 in Head Circumference 0.00 cm : Pulse 64 /min Comments: Pattern: Regular Respiration [...] 0.00 cm Results Date Description Value Details :40 Bilirubin, Direct Comments: Order Date: 03/13/17Order Info: 0788- 1 - *Hepatic Function PanelOrder Info: 83779-3 - *Lipid Profile CC PCPComments: 12 hours fasting, may have water.DR PÉREZ ORDERED LIPID/LIVERDR PERRY ORDERED TS H/CBCD/LIPID/CMP/UA/[facility] [address] [place], [place], [phone] D BILI 0.11 mg/dL (Normal) Range: 0.00-0.30 :40 CBC W/Diff, Automated Comments: DR PÉREZ ORDERED LIPID/JUNIOR PERRY ORDERED TSH/CBCD/LIPID/CMP/UA/[facility] [address] [place], [place], [id number] SMEAR COMMENT SCANNED (Normal) Absolute Lymph 2.16 [...] 4.2-5.4 WBC 5.8 K/mm3 (Normal) Range: 4.4-11.0 63-Pku-06593:40 Comprehensive Metabolic Comments: Order Date: 03/13/17Order Info: 0788-1 - *Hepatic Function PanelOrder Info: 09421-2 - *Lipid Profile CC PCPComments: 12 hours fasting, may have water.DR PÉREZ ORDERED LIPID/LIVERDR VICKY ORDERED TS Profil H/CBCD/LIPID/CMP/UA/[facility] [address] [place], [address] GAP 5 (Normal) Range: 5-15 CO2 32.0 [...] Comments: Please note revised GLUCOSE reference range cvkhrzava73/02/2018. 18-Quz-00042:40 Lipid Profile Comments: Order Date: 03/13/17Order Info: 0788-1 - *Hepatic Function PanelOrder Info: 02531-1 - *Lipid Profile CC PCPComments: 12 hours fasting, may have water.DR PÉREZ ORDERED LIPID/LIVERDR VICKY ORDERED TS H/CBCD/LIPID/CMP/UA/[facility] [address] [place], [place], [phone] VLDL 11 mg/dL (Normal) Range: 5-40 LDL [...] 200-240 mg/dL Borderline >240 mg/dL High Risk 99-Trq-25953:40 Microalb:Creat Comments: DR PÉREZ ORDERED LIPID/JUNIOR PERRY ORDERED TSH/CBCD/LIPID/CMP/UA/[facility] [address] [place], [address] Ratio,Random UR MALB:CREAT 9.7 {mg/g_CRE} (Normal) MICROALBUMIN,UR 5.3 mg/L (Normal) UR CREAT 55.10 mg/dL (Normal) :40 Thyroid Stim Hormone Comments: Order Date: 03/13/17Order Info: 0788-1 - *Hepatic Function PanelOrder Info: 31662-9 - *Lipid Profile CC PCPComments: 12 hours fasting, may have water.DR PÉREZ ORDERED LIPID/LIVERDR PERRY ORDERED TS (TSH) H/CBCD/LIPID/CMP/UA/[facility] [address] [place], [address] TSH 1.84 {uIU/mL} (Normal) Range: 0.358-3.74 89-Hgs-09469:40 Urinalysis, Complete Comments: DR PÉREZ ORDERED LIPID/JUNIOR PERRY ORDERED TSH/CBCD/LIPID/CMP/UA/[facility]? CLEAN [facility] [address] [place], [place], [phone] MUCUS, URINE 0 SEEN {/hpf} (Normal) BACTERIA [...] (Normal) CLARITY Clear (Normal) COLOR Yellow (Normal) 17-Wbc-189498:44 URINE ALEX CULTURE-IDENTIFICATN Comments: PATIENT NOT FASTINGPERFORMED BY: [facility] Jmjeuk8615 [facility] [id number] Information: [id number] ([id number]) Result 1 CNSNSS (Abnormal) Comments: Coagulase negative [...] S Urine Final report Culture,Compreh (Abnormal) ensive 04-Pak-231409:10 Urinalysis, Office (79390) UA - LEUKOCYTE ESTERASE Small (Normal) UA - NITRITE Negative (Normal) URINE UROBILINGN JASMINE TIMED Normal mg/dL (Normal) UA - PROTEIN Negative mg/dL (Normal) UA - PH 7 (Normal) UA - BLOOD non-hemolyzed trace (Normal) UA - SPECIFIC GRAVITY 1.015 (Normal) UA - KETONES Negative mg/dL (Normal) UA - BILIRUBIN Negative (Normal) UA - GLUCOSE Negative (Normal) 42-Ibk-270404:16 Basic Metabolic Profile (BMP) Comments: [facility] [address] [place], [place], [address] ; will review at appt GAP 6 [...] 7-18 GLU 87 mg/dL (Normal) Range: 70-110 45-Nup-539482:25 URINE ALEX CULTURE (JASMINE Comments: PATIENT NOT FASTINGPERFORMED BY: [facility] [id number] Information: SRC:[facility] [id number] COL COUNT) (34448) Result 1 NG36 (Normal) Comments: No growth in 36 - 48 hours. Urine Culture,Comprehensive Final report (Normal) 05-Pto-787411:44 Urinalysis, Office (82062) UA - LEUKOCYTE ESTERASE Negative (Normal) UA - NITRITE Negative (Normal) URINE UROBILINGN JASMINE TIMED Normal mg/dL (Normal) UA - PROTEIN Negative mg/dL (Normal) UA - PH 6.5 (Normal) UA - BLOOD Hemolyzed Trace (Normal) UA - SPECIFIC GRAVITY 1.010 (Normal) UA - KETONES Negative mg/dL (Normal) UA - BILIRUBIN Negative (Normal) UA - GLUCOSE Negative (Normal) 98-Xrm-618666:10 URINE ALEX CULTURE (JASMINE Comments: PATIENT NOT FASTINGPERFORMED BY: [place]70 [place]a [facility] [id number] Information: SRC:UR [id number] COL COUNT) (12950) Antimicrobial MIHEAD (Normal) Comments: S = Susceptible; [...] mL (Abnormal) Urine Final report Culture,Comprehensive (Abnormal) 86-Oiv-505378:24 Urinalysis, Office (15198) UA - LEUKOCYTE ESTERASE Small (Normal) UA [...] 02-Feb-20157:28 Comprehensive Metabolic Profil Comments: Test performed at:[facility] [address] [place], [place] [address] GAP 6 (Normal) Range: 5-15 CO2 29.0 [...] Comments: Please note revised CREATININE reference range ldcperucr04/22/2015. BUN 21 mg/dL (Abnormal) Range: 7-18 GLU 85 mg/dL (Normal) Range: 70-110 :28 Lipid Profile Comments: Test performed at:[facility] Bs[address]qdj[address]66 [facility] [place], [place] [address] ; non-emergent till apt VLDL 18 mg/dL [...] :35 CBC W/Diff, Automated Comments: Test performed at:[facility] [address]ss[address] [facility] [place], [place] [address] ; non- emergent till apt Absolute Lymph [...] Range: 4.4-11.0 :35 CRP Comments: Test performed at:[facility] [address] [place] [address] C-REACTIVE PROT 38.60 mg/L (Abnormal) Range: 0.0-3.0 Comments: C-Reactive Protein (CRP) provides useful information for thediagnosis, therapy and monitoring of inflammatory processesand associated diseases. For the evaluation of Relative Riskfor Cardiovascular Dise ase, a High Sensitivity CRP (HSCRP)should be ordered. :35 Culture, Urine Comments: Test performed at:[facility] [address] [place] [address] CUUR See Note (Normal) Comments: Urine CultureCulture exhibits no growth. :35 Erythrocyte Sed Rate Comments: Test performed at:[facility] [address]avib[address] [facility] [place] [address] SED RATE 24 mm/h (Normal) Range: 0-30 80-Vvc-973547:11 URINE ALEX CULTURE-JASMINE COL Comments: PATIENT NOT FASTINGPERFORMED BY: [facility] Ulboia9724 [facility] [id number] Information: SRC:[facility] [id number] COUNT (31792) Result 1 NG36 (Normal) Comments: No growth in 36 - 48 hours. Urine Culture,Comprehensive Final report (Normal) 31-Gkt-164442:11 Urinalysis, Office (72161) UA - LEUKOCYTE ESTERASE Small (Normal) UA - NITRITE Negative (Normal) URINE UROBILINGN JASMINE TIMED Normal mg/dL (Normal) UA - PROTEIN Trace mg/dL (Normal) UA - PH 6 (Abnormal) UA - BLOOD non-hemolyzed trace (Normal) UA - SPECIFIC GRAVITY 1.020 (Normal) UA - KETONES Negative mg/dL (Normal) UA - BILIRUBIN Negative (Normal) UA - GLUCOSE Negative (Normal) 77-Xob-215439:57 V-Zoster IgG (Immunity) Comments: Test performed at:[facility] [address] [place], [place] [address] VZOST IgG 60357 1894 {index} (Normal) Comments: Negative <135 Equivocal 135 - 165 Positive >165A positive result generally indicates exposure to thepathogen or adm inistration of specific immunoglobulins,but it is not indication of active infection or stageof disease.Performed at: [facility] [id number] Director: Bernardino grady PhD, Phone: [phone]; ADDENDA: has been seen in office since drawn 60-Pgi-93667:48 CBC W/Diff, Automated Comments: Test performed at:[facility] [address] [place] [address] Absolute Lymph 1.40 {X10_3/ul} (Normal) [...] :48 Comprehensive Metabolic Profil Comments: Test performed at:[facility] [address] [place] [id number] GAP 4 (Abnormal) Range: 5-15 CO2 28.0 [...] 70-110 :48 Lipid Profile Comments: Test performed at:[facility] [address]uesadsht2093 [facility] [place] [address] VLDL 14 mg/dL (Normal) Range: [...] Thyroid Stim Hormone (TSH) Comments: Test performed at:[facility] [address] [place] [address] TSH 1.57 {uIU/mL} (Normal) Range: [...] CHOL 151 mg/dL (Normal) Comments: <200 mg/dL Tbadaxyyy426-870 mg/dL Borderline>240 mg/dL High Risk :23 VZG 2963 {index} (Normal) Comments: Negative <135Equivocal 135 - 165Positive >165A positive result generally indicates exposure to thepathogen or administration of specific immunoglobulins,but it is not indicati on of active infection or stageof disease.Performed at: - [facility] [id number] Director: Bernardino Camargo PhD, Phone: [phone]; ADDENDA: normal and pt has apt tomorrow [...] CHOL 151 mg/dL (Normal) Comments: <200 mg/dL Mymilqwxe489-639 mg/dL Borderline>240 mg/dL High Risk :17 VITD [...] CHOL 127 mg/dL (Normal) Comments: <200 mg/dL Adiniqbvv178-206 mg/dL Borderline>240 mg/dL High Risk :49 CBCMD [...] CHOL 129 mg/dL (Normal) Comments: <200 mg/dL Gkhqourtm355-751 mg/dL Borderline>240 mg/dL High Risk HDL 48 [...] 250 nm ol/L)Toxicity >100 ng/mL (250 nmol/L)Effective 201225-Jun-201207-Yrv-650200:32 URINE ALEX CULTURE (JASMINE Comments: PATIENT NOT FASTINGPERFORMED BY: [facility] Becqgg2535 [facility] [id number] Information: SRC: [id number] COL COUNT) (50850) Result 1 CNSNSS (Normal) Comments: Coagulase negative [...] S Urine Final report Culture,Comprehensi (Normal) ve 49-Rxw-664294:35 Urinalysis, Office (55613) UA - BILIRUBIN Negative (Normal) UA - BLOOD Hemolyzed Large (Normal) UA - GLUCOSE Negative (Normal) UA - KETONES Small mg/dL (Normal) UA - LEUKOCYTE ESTERASE Large (Normal) UA - NITRITE Negative (Normal) UA - PH 7.0 (Normal) UA - PROTEIN 100 mg/dL (Normal) UA - SPECIFIC GRAVITY 1.020 (Normal) URINE UROBILINGN JASMINE TIMED Normal mg/dL (Normal) 3-Hbc-037981:19 Urinalysis, Office (58158) UA - BILIRUBIN Negative (Normal) UA - BLOOD Hemolyzed Trace (Normal) UA - GLUCOSE Negative (Normal) UA - KETONES Negative mg/dL (Normal) UA - LEUKOCYTE ESTERASE Negative (Normal) UA - NITRITE Negative (Normal) UA - PH 7.5 (Normal) UA - PROTEIN Negative mg/dL (Normal) UA - SPECIFIC GRAVITY 1.015 (Normal) URINE UROBILINGN JASMINE TIMED Normal mg/dL (Normal) 3-Ydu-886302:11 URINE ALEX CULTURE-IDENTIFICATN Comments: PATIENT NOT FASTINGPERFORMED BY: [facility] Vrvhnc6104 [facility] [id number] Information: [id number] (84938) Result 1 NG36 (Normal) Comments: No growth [...] >240 mg/dL High Risk :33 [facility] 0 SEEN {/hpf} (Normal) [...] (Normal) UCLAR Clear (Normal) UCOL Yellow (Normal) 9-Hdg-679949:50 RIBS UNIL 2V NO CXR Radiology Report [...] Signed:Mikhail Palencia MDNovember 2011 at 5:31:33 PM [id number] Signed TP/TP If you are the referring physician and would like to consult with theradiologist who provided this inter pretation, please contact Mikhail Palencia MD at [phone]. If this radiologist is unavailable, you will bedirected to another radiologist to assist. If you are a patient with a question regarding this re port, pleasecontactyour referring physician directly. Professional Interpretation Provided By: [facility], Phone , These documents contain legally protected [...] IMPORTSign by Mikhail Palencia MD on 04/08/12 173 Sign by: Pope TEMO,Mikhail 5-Tgc-754150:01 BILAT SCRN DIGITAL & CAD Radiology Report [...] Alonso M.D.March 05, 2012 at 2:05:30 PM [id number] Signed GP/GP If you are the referring physician and would like to consult with theradiologist who provided this interpretation, please contact Stuart Wills at [phone]. If this radiologist is unavailable, youwill be directed to another radiologist to assist. If you are a patient with a question regarding this report, pleasecontactyour referring physician directly. Professional Interpretation Provided By: [facility], Phone , These documents contain legally protected [...] Alonso M.D.March 05, 2012 at 2:52:24 PM [id number] Signed GP/GP If you are the referring physici an and would like to consult with theradiologist who provided this interpretation, please contact Stuart Wills at [phone]. If this radiologist is unavailable, youwill be directed to anot her radiologist to assist. If you are a patient with a question regarding this report, pleasecontactyour referring physician directly. Professional Interpretation Provided By: [facility], Phone , These documents contain legally protected [...] destructionofthese documents. Dictated on 03/05/12 1322 by Juan Alonso MDscribed on 03/05/128 by ITS IMPORTSign by Michael Alonso MD on 8 Sign by: Michael Alonso MD 90-Gih-93588:26 CBCEM Comments: This patient requested that [facility] [employer] send to you acopy of [...] PLATELETS (Normal) Comments: This patient requested that [facility] [employer] send to you acopy of their Yearly Employee Health Risk Assessment.A copy of this report is also given to the patient so theycan follow up with your office if they choose. :26 EMP Comments: This patient requested that [facility] [employer] send to you acopy of their Yearly [...] :26 UAEM Comments: This patient requested that [facility] [employer] send to you acopy of [...] (Normal) UCLAR CLEAR (Normal) UCOL YELLOW (Normal) 40-Egw-787725:01 VITD 45.5 ng/mL (Normal) Range: 30.0-100.0 Comments: Vitamin D deficiency has been defined by the [place] ofMedicine and an Endocrine Society practice guideline as alevel of serum 25-OH vitamin D less than 20 ng/mL (1,2).The Endocrine Society went on to further define vitamin Dinsufficiency as a level between 21 and 29 ng/mL (2).1. IOM ([place] of Medicine). 2010. Dietary reference intakes for calcium and D. [place]: The National Academies Press.2. Paxton MF, Rojelio OSPINA, Cortney GARIBAY, et al. Evaluation, treatment, and prevention of vitamin D deficiency: an Endocrine Society clinical practice guideline. JCEM. 2010; 96(7): 1911-30.Performed at: [facility] [address] [id number] Director: Korin Harris MD, Phone: [phone] 74-Nkf-345229:34 HEPATOBILIARY IMAGING Radiology Report See Note (Normal) [...] radiologist regarding this report, please call our 21J7dazjwsq line @ Dictated on 05/31/11817 by Ehsan Vázquez DOTranscribed on 05/31/112030 by ITS IMPORTSign by Ehsan Vázquez DO on 05/31/112031 Sign by: Ehsan Vázquez DO 34-Qcp-161511:54 TOE(S),MIN 2 VIEWS Radiology Report See Note [...] regarding this rep ort, please call our 25R0pjnndfd line @ Dictated on 05/30/11 1150 by ARNEL TORRESTranscribed on 05/30/112228 by ITS IMPORTSign by ARENL TORRES on 05/30/112229 Sign by: ARNEL TORRES [...] of the right kidney. The right kidn sbwebnntcw67.6 x 4.7 x 4.0 cm. Normal renal [...] 05/02/11 1224 Sign by: MAIA SHELTON MD 36-Frd-026693:02 CBCD,SMEAR DIFF Comments: appt 05/17/11 RED CELL [...] NEGATIVE 0.06 - 0.59 AT RISK OF [place] > OR = 0.60 SUGGEST [place] :11 ANKLE,MIN 3 VIEWS Radiology Report See [...] 12/14/10 1005 Sign by: GISSELLE GONZALES MD 90-Mqb-59129:52 URINE ALEX CULTURE (JASMINE COL Comments: PATIENT NOT FASTINGPERFORMED BY: [facility]50 [facility] [id number] COUNT) ([id number]) Result 1 NG36 (Normal) Comments: No growth in 36 - 48 hours. Urine Culture,Comprehensive Final report (Normal) :07 Urinalysis, Office (97771) UA - BILIRUBIN Negative (Normal) UA - [...] CHOL 150 mg/dL (Normal) Comments: <200 mg/dL Fbptkyauh229-934 mg/dL Borderline>240 mg/dL High Risk HDL 56 [...] CHOL 150 mg/dL (Normal) Comments: <200 mg/dL Hnovofrnc622-702 mg/dL Borderline>240 mg/dL High Risk LDH 160 [...] (Normal) Comments: Result: NEGATIVE COLOR YELLOW (Normal) 98-Pdy-065521:10 BILAT SCRN DIGITAL & CAD Radiology See Note Comments: Exam Number: [id number] MAMMOGRAPHY - BILATERAL SCREENING INDICATION:Routine annual screening [...] not delay biopsy of a clinicallysuspicious abnormality.ADDENDUM: [id number] HPBI/MDS MAMMOGRAPHY - BILATERAL SCREENING INDICATION:Routine annua [...] attach ing a ResultCode to this exam.ADDENDUM: [id number] HPBI/MDS Reported By: GISSELLE GONZALES M.D. 03-Tff-003924:09 DEXA BONE DENSITY STUDY () Radiology Report See Note Comments: Exam Number: [id number] CLINICAL:The patient is a 69-year-old female who is postmenopausal with pasthistory of hormone replacement therapy. History of fracture of Z8xcfbjn history of osteoporosis EXAMINA (Normal) TION:DUAL ENERGY X-RAY ABSORPTIOMETRY / DEXA. TECHNIQUE:Bone Density Measurements (BMD) of lumbar spine and bilateral hipswere obtained using a [employer] scanner. COMPARISON:March 24 999, October 29, 2002, [...] Osteoporosis and Related Bone Diseases http://www.osteo.org2. International Organizer atatrium health Society for Clinical Densitometryhttp://www.iscd.org3. National Osteoporosis Foundation http://www.nof.org Reported By: GISSELLE GONZALES M.D. 24-Dec-19 VIT D,25 38846 39.0 ng/mL Range: 32.0-100.0 1012:08 (Normal) Comments: Recent studies consider the lower limit of 32.0 ng/mL to isabel threshold for optimal health.Sheng BURNETT. J Nutr. 2004;135(2):317- 22.Performed at: [address] [address]Lab Director: Koirn Harris MD, Phone: [phone] 29-Oct-19 C DIF TOXIN/AG See Note Comments: C. DIFF ANTIGENS NEGATIVE 105:40 (Normal) 69-Ave-17613:40 CUL STOOL/SHIG SHIGA-TOXIN See Note (Normal) Comments: [...] Crytosporidium parvum,Cyclospora, or Microsporidia.__ TESTING PERFORMED AT [facility]. ORIGINAL REPORT ONFILE IN LAB CONTAINS ADDITIONAL TEST SITE INFORMATION. OVA/ PARASITES EXAM NO OVA, CYSTS, OR PARASITES FOUND. :40 WBC,STOOL See Note (Normal) Comments: FECAL WBCs NONE SEEN 07-Yfv-583802:25 ABDOMEN/PELVIS WITH CONTRAST Radiology Report See Note (Normal) Comments: Exam Number: [id number] CLINICAL:This is a 68-year-old female patient with [...] evidence ofdiverticulitis at this time. Reported By: MICAHEL ALONSO 77-Rix-50712: C-REACTIVE PROT 30.00 mg/L Range: 0.0-3.0 56 [...] SED RATE 48 mm/h (Abnormal) Range: 0-30 :55 URINE ALEX CULTURE (JASMINE Comments: PATIENT NOT FASTINGPERFORMED BY: ALEJO [id number] [facility] [id number] Information: SRC:UR [id number] COL COUNT) (16419) Result 1 NG36 (Normal) Comments: No growth in 36 - 48 hours. Urine Culture,Comprehensive Final report (Normal) 19-Oxw-134820:20 Urinalysis, Office (95147) UA - LEUKOCYTE ESTERASE Small (Normal) UA - NITRITE Negative (Normal) URINE UROBILINGN JASMINE TIMED 2 mg/dL (Normal) UA - PROTEIN Negative mg/dL (Normal) UA - PH 7.0 (Normal) UA - BLOOD Hemolyzed Trace (Normal) UA - SPECIFIC GRAVITY 1.015 (Normal) UA - KETONES Negative mg/dL (Normal) UA - BILIRUBIN Negative (Normal) UA - GLUCOSE Negative (Normal) 82-Esz-00867:11 BREAST UNILATERAL US (HP) Radiology Report See Note (Normal) Comments: Exam Number: [id number] CLINICAL:The patient is a 68-year-old female with [...] year isrecommended. Reported By: GISSELLE GONZALES M.D. 17-Emr-55013:03 LIPID HDL 48 mg/dL (Normal) Comments: Reference [...] CHOL 147 mg/dL (Normal) Comments: <200 mg/dL Drvwueybk810-155 mg/dL Borderline>240 mg/dL High Risk :03 LIVER ALB 4.2 g/dL (Normal) Range: 3.4-5.0 ALK P 66 U/L (Normal) Range: 50-136 ALT 29 U/L (Normal) Range: 12-78 AST 20 U/L (Normal) Range: 15-37 D BILI 0.09 mg/dL (Normal) Range: 0.00-0.30 T BILI 0.30 mg/dL (Normal) Range: 0.00-1.00 T PROT 7.9 g/dL (Normal) Range: 6.4-8.2 13-Xgt-697161:41 Urinalysis, Office (25981) UA - LEUKOCYTE ESTERASE Trace (Normal) UA [...] T PROT 7.9 g/dL (Normal) Range: 6.4-8.2 91-Ryy-724678:56 LOWER EXT.JOINT ONLY (ROUTINE) Radiology Report See Note (Normal) Comments: Exam Number: [id number] CLINICAL: 68-year-old female with knee pain lateral [...] 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 Reported By: John Alcocer M.D. 0-Psl-173303:24 KNEE,4 OR MORE VIEWS (MT) Radiology Report See Note (Normal) Comments: Exam Number: [id number] CLINICAL:Pain X-RAY EXAMINATION RIGHT KNEE TECHNIQUE:4 view(s) [...] change. Osteopenia. Reported By: ARIADNA PERAZA M.D. 9-Srk-803202:23 L/S SPINE,MIN 4 VIEWS (MT) Radiology Report See Note (Normal) Comments: Exam Number: [id number] CLINICAL:Low back pain, radiculopathy X-RAY EXAMINATION: LUMBAR [...] acute fracture. Reported By: ARIADNA PERAZA M.D. 7-Rnp-770713:00 EMP URINALYSIS BILIRUBIN URINE SeeNote (Normal) Comments: [...] Range: 0.2 - 1.0 COLOR YELLOW (Normal) 7-Tag-620881:00 ROUTINE UA BILIRUBIN URINE SeeNote (Normal) Comments: [...] Range: 2.6-6.0 :31 DEXA BONE DENSITY STUDY (HP) Radiology Report See Note (Normal) Comments: Exam Number: [id number] BONE DENSITOMETRY HISTORYOsteopenia. TECHNIQUE Bone densitometry of the lumbar spine and both hips is now beingperformed. The best criteria for evaluation of osteoporosis is theT-value, which represents the comparison of the patient's bone mass leigh expected peak bone mass. For most patients, the mean T-value of E8vseqvop L4 is used to evaluate the lumbar [...] density is measured at 7.2% less than th6493.The T-valu e of the right femoral neck is -2 which is in the range ofosteopenia.The T- value of the total right hip is -1.7 which is in the range ofosteopenia. IMPRESSIONThere is osteopenia of the lumbar spine and both hips. Reported By: GISSELLE GONZALES M.D. 30-Ztj-52313:54 BREAST UNILATERAL US () Radiology Report See Note (Normal) Comments: Exam Number: [id number] TARGETED LEFT BREAST ULTRASOUND HISTORYAbnormal mammogram. High-resolution [...] Greene's office and the office was called [id number] hours December 22, 2008. Reported By: GISSELLE GONZALES M.D. 98-Ucd-489668:35 [facility] DIA DIGITAL & CAD Radiology Report See Note (Normal) Comments: Exam Number: [id number] MAMMOGRAM, UNILATERAL LEFT DIAGNOSTIC DIGITAL AND CAD [...] (MQSA). The mammograms werealso examined w [facility] computer-aided detection software ([employer] Reported By: GISSELLE GONZALES M.D. 96-Qqq-543531:30 [facility] Radiology Report See Note (Normal) Comments: Exam Number: [id number] MAMMOGRAM, BILATERAL SCREENING DIGITAL AND CAD HISTORYRoutine [...] mammograms werealso examined with computer-aided detection software ([employer] Reported By: GISSELLE GONZALES M.D. 90-Tsz-531001:37 BMP BUN 15 mg/dL (Normal) Range: 7-18 [...] g/dL (Normal) Range: 6.4-8.2 :11 AT3 F/I 69017 AT3 AG, IMMUNOL 131 % (Abnormal) Range: 75-130 AT3 FUNCT 92656 131 % (Normal) Range: 75-135 :11 PROT C 953261 PROT C,AH013128 169 % (Abnormal) Range: 74-151 Comments: Performed At: [address] [id number] PROTEIN C [address] 106 % (Normal) Range: 70-140 10-Pox-502209:11 PROT S 178093 PROTEIN S, FREE 107 % (Normal) Range: 56-124 PROTEIN S, FUNC 82 % (Normal) Range: 60-145 PROTEIN S,TOTAL 137 % (Normal) Range: 58-150 :38 A-CARDIO 907905 Comments: ORDER ALSO STATES ANTIPHOSPHOLIPIDS, WHICH IS [...] mm/h (Normal) Range: 0-30 :38 FAC II 116740 Comments: ORDER ALSO STATES ANTIPHOSPHOLIPIDS, WHICH IS A SYNONYM OFANTICARDIOLIPIN FACTOR II,DNA Comment (Normal) Comments: NEGATIVENo mutation identified.Comment:A point mutation (P88318S) in the Factor II (prothrombin)gene is the [...] antithrombinIII, protein C and protein S. :38 [facility] 954204 Comments: ORDER ALSO STATES ANTIPHOSPHOLIPIDS, WHICH IS [...] , elevatedhomocysteine levels, or a Factor II/prothrombin mutation(B69669D). Contact you r local [facility] for information [...] mg/dL VLDL 31 mg/dL (Normal) Range: 5-40 99-Gtd-669462:35 CULTURE, URINE URINE CULTURE See Note (Normal) Comments: Predominant colony type being a gram positive trevor, probableLactobacillus species. COLONY COUNT 50,000-80,000 ORGANISM 1: MIXED GRAM POSITIVE ORGANISMS 43-Eod-563268:35 ROUTINE UA BILIRUBIN URINE SeeNote (Normal) Comments: [...] 0.2 EU/dl (Normal) Range: 0.2 - 1.0 32-Bhm-18017:48 Urinalysis, Office (40144) UA - BILIRUBIN Negative (Normal) UA - BLOOD Negative (Normal) UA - GLUCOSE Negative (Normal) UA - KETONES Negative mg/dL (Normal) UA - LEUKOCYTE ESTERASE Trace (Normal) UA - NITRITE Negative (Normal) UA - PH 6.5 (Normal) UA - PROTEIN Negative mg/dL (Normal) UA - SPECIFIC GRAVITY 1.005 (Normal) URINE UROBILINGN JASMINE TIMED 2 mg/dL (Normal) 4-Vtv-599309:04 BILAT SCRN DIGITAL & CAD Radiology Report See Note (Normal) Comments: Exam Number: [id number] MAMMOGRAM, BILATERAL SCREENING DIGITAL AND CAD HISTORYRoutine [...] werea lso examined with computer-aided detection software ([employer] Reported By: GISSELLE GONZALES M.D. 0-Gyd-096119:41 DEXA BONE DENSITY STUDY () Radiology Report See Note (Normal) Comments: Exam Number: [id number] BONE DENSITOMETRY HISTORYOsteopenia. TECHNIQUE Bone densitometry of [...] density is measured at 0.2% less than hh7093 and 0.1% more than in 2006. IMPRESSIONThere is osteopenia of the lumbar spine and left hip. Reported By: GISSELLE GONZALES M.D. 57-Jhy-97629:19 CBC, EMPLOYEE HCT 36.9 % (Abnormal) Range: 37-47 HGB 12.8 g/dL (Normal) Range: 12.0-16.0 MCH 29.6 pg (Normal) Range: 27.0-32.0 MCHC 34.7 g/dL (Normal) Range: 32-36 MCV 85.3 fL (Normal) Range: 81-99 MPV 8.3 fL (Normal) Range: 6.5-12.0 PLT 369 K/mm3 (Normal) Range: 150-450 RBC 4.33 {M/mm3} (Normal) Range: 4.2-5.4 RDW 13.9 % (Normal) Range: 11.6-14.6 WBC 6.2 K/mm3 (Normal) Range: 4.4-11.0 77-Yyn-84139:19 EMP PROF A/G 1.1 {RATIO} (Normal) Range: [...] (Normal) Range: 0.2 - 1.0 :00 METAN,U24 4236 Comments: DATE STARTED 05/12/07, TIME STARTED 599DATE ENDED 05/13/07, TIME ENDED 0600 METANEPH,U24 64 {ug/24_hr} (Normal) Range: 35-460 METANEPHRINE,UR 41 ug/L (Normal) NORMETANEPH,U24 301 {ug/24_hr} (Normal) Range: 110-1050 NORMETANEPH,UR 194 ug/L (Normal) :00 VMA,U24 9472 Comments: DATE STARTED 05/12/07, TIME STARTED 599DATE ENDED 05/13/07, TIME ENDED 0600 VMA,24UR 5.3 {mg/24_hr} (Normal) Range: 1.8-6.7 Comments: Performed At: [address] [id number] VMA,UR 3.4 mg/L (Normal) :16 ALDOST,U24 1293 Comments: 24 H URINE TV = 2580 ML ALDOSTERONE,U24 3 {ug/24_hr} (Normal) Range: 2-21 Comments: 1 mo. 1 - 11 1- 12 mos. 1 - 22 1- 16 yrs. 2 - 16 Adult Ranges Normal diet 2 - 21 Low salt 17 - 44 High salt 0 - 14Performed At: [facility] [id number] [place], [place] [id number] ALDOSTERONE,UR 1 ug/L (Normal) 12-Aff-142949:17 BRAIN/HEAD W/WO CONTRAST Radiology Report See Note (Normal) Comments: Exam Number: [id number] CT SCAN OF BRAIN HISTORYHeadache. Scans were [...] ethmoid sinusitis. Reported By: GISSELLE GONZALES M.D. 80-Gmo-77670:51 CBC With Differential/Platelet Comments: PERFORMED BY: [id number] [id number] Baso (Absolute) 0.1 {x10E3/uL} (Normal) Range: 0.0-0.2 [...] Comp. Metabolic Panel (14) Comments: PERFORMED BY: [facility] [address] [facility] [id number] A/G Ratio 1.5 (Normal) Range: 1.1-2.5 Albumin, [...] Sedimentation 4 mm/h (Normal) Comments: PERFORMED BY: [facility] Rlmspc4878 [facility] [id number] :51 Rate-Westergren Range: 0-30 3-Avg-487065:29 CULTURE, URINE URINE CULTURE See Note {CFU/mL} (Normal) Comments: COLONY COUNT >100,000 ORGANISM 1: ENTEROCOCCUS FAECALIS ENTEROCOCCUS FAECALIS: REACTION CIPROFLOXACIN GP $$$ <=0.5 S LEVOFLOXAC IN $$ <=1 S NITROFURANTOIN $ <=32 S PENICILLIN G (ENTEROCOCCUS) $$ 2 S TETRACYCLINE $$ <=1 S VANCOMYCIN $$ <=0.5 S 1-Kap-457650:29 ROUTINE UA BILIRUBIN URINE SeeNote (Normal) Comments: [...] EASY BRUISABILITY OF SKIN Planned Observations TSH (43183)Indication: Hypercholesterolemia On: :51 Request URINALYSIS, W/ MICRO (96970)Indication: Essential hypertension On: :51 Request MICROALBUMIN: CREATININE RATIO (22716) AND (54728)Indication: Essential hypertension On: :51 Request METABOLIC PANEL, COMPREHENSIVE (11697)Indication: Essential hypertension On: :51 Request LIPID PANEL (75375)Indication: Essential hypertension On: :51 Request CBC W/AUTO DIFF WBC (75155)Indication: Essential hypertension On: :51 Request Metabolic Panel, Basic (66311)Indication: Essential hypertension On: 16-Ech-908575:32 Request Comments: 2 weeks Vitamin D Hydroxy (47061)Indication: Osteopenia On: :23 Request URINALYSIS, W/ MICRO (22935)Indication: Essential hypertension On: :23 Request CBC W/AUTO DIFF WBC (46934)Indication: Essential hypertension On: :23 Request METABOLIC PANEL, COMPREHENSIVE (75168)Indication: Essential hypertension On: :23 Request LIPID PANEL (07207)Indication: Hypercholesterolemia On: :22 Request SED RATE ERYTHROCYTE (47433)Indication: Abdominal pain, acute, generalized On: :47 Request C-REACTIVE PROTEIN (75566)Indication: Abdominal pain, acute, generalized On: :47 Request CBC with auto diff (98682)Indication: Abdominal pain, acute, generalized On: :46 Request URINALYSIS, W/ MICRO (07476)Indication: Essential hypertension On: :27 Request LIPID PANEL (92478)Indication: Hypercholesterolemia On: :27 Request METABOLIC PANEL, COMPREHENSIVE (72737)Indication: Essential hypertension On: 0-Aon-266821:26 Request VARICELLA-ZOSTER ANTBODY (06915)Indication: Hypercholesterolemia On: 42-Vzp-527592:58 Request TSH (82347)Indication: Anxiety associated with depression On: 90-Pxg-840649:12 Request LIPID PANEL (19092)Indication: Hypercholesterolemia On: 88-Hsk-834549:12 Request CBC W/AUTO DIFF WBC (99341)Indication: Essential hypertension On: 87-Xsm-479814:12 Request METABOLIC PANEL, COMPREHENSIVE (66547)Indication: Essential hypertension On: 40-Qnd-373891:12 Request VARICELLA-ZOSTER ANTBODY (27007)Indication: screen On: 91-Ycr-375972:59 Request CBC WITH MANUAL DIFF (78596)Indication: Essential hypertension On: 54-Xnw-691997:59 Request LIPID PANEL (12753)Indication: Hypercholesterolemia On: 52-Jcq-957544:58 Request METABOLIC PANEL, COMPREHENSIVE (09428)Indication: Essential hypertension On: 83-Ooh-496568:58 Request Vitamin D Hydroxy (86752)Indication: Osteopenia On: :33 Request METABOLIC PANEL, COMPREHENSIVE (20587)Indication: Essential hypertension On: :33 Request LIPID PANEL (58437)Indication: Hypercholesterolemia On: :33 Request METABOLIC PANEL, COMPREHENSIVE (49027)Indication: Essential hypertension On: :57 Request LIPID PANEL (17168)Indication: Hypercholesterolemia On: :56 Request Vitamin D Hydroxy (20441)Indication: Anxiety associated with depression On: :51 Request CBC WITH MANUAL DIFF (16943)Indication: Essential hypertension On: :51 Request METABOLIC PANEL, COMPREHENSIVE (07174)Indication: Essential hypertension On: :51 Request TSH (99688)Indication: Anxiety associated with depression On: :51 Request LIPID PANEL (68387)Indication: Hypercholesterolemia On: :50 Request CBC WITH MANUAL DIFF (83327)Indication: Essential hypertension On: :30 Request METABOLIC PANEL, COMPREHENSIVE (70217)Indication: Essential hypertension On: :25 Request LIPID PANEL (62480)Indication: Hypercholesterolemia On: :25 Request URINALYSIS, W/ MICRO (41611)Indication: Essential hypertension On: :08 Request CBC WITH MANUAL DIFF (96825)Indication: Essential hypertension On: :08 Request METABOLIC PANEL, COMPREHENSIVE (91884)Indication: Essential hypertension On: 14-Hjw-142449:06 Request LIPID PANEL (27973)Indication: Hypercholesterolemia On: :06 Request LIPID PANEL (77174)Indication: Hypercholesterolemia On: :28 Request CBC WITH MANUAL DIFF (39631)Indication: Essential hypertension On: :28 Request METABOLIC PANEL, COMPREHENSIVE (76408)Indication: Essential hypertension On: :28 Request METABOLIC PANEL, COMPREHENSIVE (42774)Indication: Essential hypertension On: :48 Request Vitamin D Hydroxy (69036)Indication: Depression On: :48 Request LIPID PANEL (56757)Indication: Hypercholesterolemia On: :47 Request CBC WITH MANUAL DIFF (37663)Indication: Other chest pain On: 95-Buh-759071:19 Request METABOLIC PANEL, COMPREHENSIVE (97971)Indication: Other chest pain On: 42-Lnj-713304:18 Request ASSAY, TROPONIN, QUANTITATIVE (aka Troponin I) (05066)Indication: Other chest pain On: 87-Lzp-398149:18 Request Comments: stat CALCIFEDIOL (13760)Indication: Eczema (Renamed from Dermatitis, eczematoid) On: 76-Lju-297738:34 Request OVA & PARASITE DIR SMEAR (92956)Indication: Diarrhea (Renamed from D (diarrhea)) On: 79-Son-074840:11 Request LEUKOCYTE COUNT, FECAL (78123)Indication: Diarrhea (Renamed from D (diarrhea)) On: 71-Qum-020985:10 Request C.Difficile, Stool (87719)Indication: Diarrhea (Renamed from D (diarrhea)) On: 71-Agm-364397:10 Request ALEX CULTURE-STOOL (12240)Indication: Diarrhea (Renamed from D (diarrhea)) On: 73-Kuv-093016:10 Request SED RATE ERYTHROCYTE (76605)Indication: Abdominal pain, acute, left lower quadrant On: 04-Cpb-933593:10 Request C-REACTIVE PROTEIN (99517)Indication: Abdominal pain, acute, left lower quadrant On: 63-Hyz-755443:10 Request URINALYSIS, W/ MICRO (03640)Indication: Abdominal pain, acute, left lower quadrant On: 37-Boj-590011:10 Request METABOLIC PANEL, COMPREHENSIVE (92979)Indication: Abdominal pain, acute, left lower quadrant On: 08-Ift-966807:10 Request CBC WITH MANUAL DIFF (62450)Indication: Abdominal pain, acute, left lower quadrant On: 83-Xrj-807560:10 Request METABOLIC PANEL, COMPREHENSIVE (20799)Indication: Essential hypertension On: 47-Ihm-348727:47 Request HEPATIC FUNCTION PANEL (12019)Indication: Hypercholesterolemia On: 17-Oeq-153511:47 Request LIPID PANEL (77097)Indication: Hypercholesterolemia On: 81-Jfr-884330:47 Request Vitamin D Hydroxy (49661)Indication: Osteopenia On: 84-Fdo-850275:46 Request LIPID PANEL (00690)Indication: Hypercholesterolemia On: :38 Request HEPATIC FUNCTION PANEL (19100)Indication: Hypercholesterolemia On: 10-Mar-20098:38 Request Metabolic Panel, Basic (20389)Indication: DISORDERS, ORGANIC, SLEEP RELATED LEG CRAMPS On: :17 Request URINALYSIS W/O MICRO (31152)Indication: Essential hypertension On: :48 Request TSH (97321)Indication: Essential hypertension On: :48 Request METABOLIC PANEL, COMPREHENSIVE (41677)Indication: Essential hypertension On: :48 Request CBC WITH MANUAL DIFF (00609)Indication: Essential hypertension On: :48 Request LIPID PANEL (57544)Indication: Hypercholesterolemia On: :48 Request CBC WITH MANUAL DIFF (20320)Indication: Anemia, unspecified On: :51 Request LIPID PANEL (51715)Indication: Hypercholesterolemia On: :31 Request HEPATIC FUNCTION PANEL (78059)Indication: Hypercholesterolemia On: :41 Request LIPID PANEL (87270)Indication: Hypercholesterolemia On: :41 Request SED RATE ERYTHROCYTE (84940)Indication: Headache (Renamed from Cephalalgia) On: :40 Request METABOLIC PANEL, COMPREHENSIVE (69137)Indication: Headache (Renamed from Cephalalgia) On: :39 Request CBC WITH MANUAL DIFF (51502)Indication: Headache (Renamed from Cephalalgia) On: :39 Request CBC WITH MANUAL DIFF (77952)Indication: EASY BRUISABILITY OF SKIN On: :59 Request PTT (ACTIVATED PARTIAL THROMBOPLASTIN TIME) (66581)Indication: EASY BRUISABILITY OF SKIN On: :59 Request PT (PROTHROMBIN TIME) (95195)Indication: EASY BRUISABILITY OF SKIN On: :59 Request HEPATIC FUNCTION PANEL (21829)Indication: Hypercholesterolemia On: :54 Request LIPID PANEL (94895)Indication: Hypercholesterolemia On: :54 Request Planned Encounters Medical; Other symptoms - lump on neck On: 10-Apr-2018 10:30 [facility] Acacia Whaley CNP Medical; 4 Month FU - On: 18-Apr-2018 10:30 [facility] Catrina Perry DO, DO, Kathleen Planned Procedures CT OF NECK WITHOUT THEN WITH On: 09-Apr-2018 Intent INTRAVENOUS CONTRAST (75156)By: Comments: include thyroid Acacia Whaley CNP Ultrasound - ThyroidBy: Jovana OJEDA, On: 09-Apr-2018 Intent Acacia Wang Comments: attetion soft tissue rt side of neck Flu Vaccine (Quadrivalent) 30271Rl: On: 13-Mar-2018 Intent Ladi Max Comments: Lot #[id number]-L dltd, IMDose prefilled syringegiven by:Ladi Max [facility] reviewed and ABN signed FLAT PLATE (78661)By: Jovana OJEDA, On: 19-Dec-2017 Intent Acacia Wang ELECTROCARDIOGRAM, COMPLETE (ECG) On: 12-Dec-2017 Intent (38616)By: Catrina Perry DO Comments: nsr no acute chg Catrina Perry DO Bone Density StudyBy: Tessie Greene DO On: 10-May-2015 Intent A Comments: screening ADMINISTRATION OF INFLUENZA VIRUS On: 05-Feb-2015 Intent VACCINE (G0008)By: Tessie Greene DO Flu Vaccine (Quadrivalent) 24462Wj: On: 05-Feb-2015 Intent Tessie Greene DO Comments: Lot:[id number]:09/01/15Dose:0.5mLRoute:IMSite:L DltdGiven By:MARTY signed MAMMOGRAM, SCREENING, BOTH BREAST On: 05-Feb-2015 Intent (18087)By: Tessie Greene DO Comments: nov DEXA SCAN AXIAL SKELETON (93256)By: On: 05-Feb-2015 Intent Tessie Greene DO Comments: nov Solu -Medrol Injection, 125 mg On: 09-Dec-2014 Intent (J2930)By: Acacia Whaley CNP Comments: lot:[id number]:route:IMdose:125MGsite: R glutGiven by: ROSANGELA Gamble MAMMOGRAM, SCREENING, BOTH BREAST On: 13-Mar-2014 Intent (81939)By: Tessie Greene DO ADMINISTRATION OF INFLUENZA VIRUS On: 13-Mar-2014 Intent VACCINE (G0008)By: Tessie Greene DO FLU VAC, SPLIT, >3 YEARS, INTRAMUSC On: 13-Mar-2014 Intent (96666)By: Tessie Greene DO Comments: lot: [id number]: 12-01-13site/route: L del/IMamt: 0.5mLVIS signed when applicableChelsea, HOSPICE ART THERAPIST Eprescribed prescriptions (G8553)By: On: 16-Sep-2013 Intent Tessie Greene DO Eprescribed prescriptions (G8553)By: On: 18-Mar-2013 Intent Libby Herndon FLU VAC, SPLIT, >3 YEARS, INTRAMUSC On: 20-Feb-2013 Intent (25818)By: Fallon Carranza Comments: Lot:[id number]:Dose:0.5mLRoute:IMSite:L DltdGiven By:AGAVIS signed IMMUNIZ ADMNIN, 1 VAC, SNGL/COMBO On: 20-Feb-2013 Intent (49687)By: Fallon Carranza MAMMOGRAM, SCREENING, BOTH BREASTS On: 31-Dec-2012 Intent (51256)By: Tessie Greene DO Eprescribed prescriptions (G8553)By: On: 11-Nov-2012 Intent Libby Herndon Eprescribed prescriptions (G8553)By: On: 23-Sep-2012 Intent Libby Herndon EKG (15693)By: Libby Herndon On: 21-Aug-2012 Intent Comments: ekg showed normal sinus rhythym, normal axis, no acute st/t wave changes Eprescribed prescriptions (G8553)By: On: 25-Jun-2012 Intent Tanya Bermudez LPN PNEUM VAC ADLT/IMUMNOSPR, SBC/INTRM On: 03-May-2012 Intent (44732)By: Tessie Greene DO Comments: Lot:[id number]:08-06-13Dose:0.5mLRoute:IMSite:L armGiven By:AGA ADMINISTRATION OF PNEUMOCOCCAL On: 03-May-2012 Intent VACCINE (G0009)By: Tessie Greene DO A Eprescribed prescriptions (G8553)By: On: 03-May-2012 Intent Libby Herndon Kchqjfbqr-Xlf-Ajxeh (29450)By: Jovana On: 08-Apr-2012 Intent RUSTY Lori DXA, BONE DENSITY, AXIAL SKELETON On: 30-Jan-2012 Intent (79367)By: Tessie Greene DO MAMMOGRAM, SCREENING, BOTH BREASTS On: 30-Jan-2012 Intent (13010)By: Tessie Greene DO IMMUNIZ ADMNIN, 1 VAC, SNGL/COMBO On: 30-Jan-2012 Intent (96295)By: Megan Phillips LPN Comments: Lot/Exp: [id number], 11/2011Given in L Dltd, IMPrefilled SyringeBy ROEL Guzman FLU VAC, SPLIT, >3 YEARS, INTRAMUSC On: 30-Jan-2012 Intent (84763)By: Megan Phillips LPN Breast Screening - BilateralBy: Fast On: 30-Jan-2012 Intent Tessie BROUSSARD Eprescribed prescriptions (G8553)By: On: 11-Jul-2011 Intent Jovana OJEDA Acacia Wang Radiology - Toe(s) - LeftBy: Fast On: 30-May-2011 Intent Tessie BROUSSARD Nuclear Medicine - HIDA w/CPKBy: On: 05-May-2011 Intent Tessie Greene DO Ultrasound - GallbladderBy: Jc BROUSSARD, On: 01-May-2011 Intent Tessie Soler Comments: please do tomorrow Cartoid DopplerBy: Tessie Greene DO On: 01-May-2011 Intent EKG (44574)By: Libby Herndon On: 01-May-2011 Intent Comments: ekg showed normal sinus rhythym, normal axis, no acute st/t wave changes poor r wave progression unchanged TDAP VACCINE >7 IM (97293)By: On: 01-May-2011 Intent Libby Herndon Comments: work FLU VAC, SPLIT, >3 YEARS, INTRAMUSC On: 01-May-2011 Intent (51795)By: Libby Herndon Comments: work DXA, BONE DENSITY, AXIAL SKELETON On: 09-Feb-2011 Intent (37732)By: Monserrat Granado LPN MAMMOGRAM, SCREENING, BOTH BREASTS On: 09-Feb-2011 Intent (79537)By: Monserrat Granado LPN Radiology - Ankle - LeftBy: Ciesa On: 14-Dec-2010 Intent Acacia OJEDA Comments: call wet read to Acacia Whaley Eprescribed prescriptions (G8553)By: On: 15-Nov-2010 [address] DO CT - Abdomen & PelvisBy: Jc BROUSSARD, On: 26-Oct-2009 Intent Tessie A Comments: tomorrow call wet read EKG (57622)By: Libby Herndon On: 30-Aug-2009 Intent Comments: do at hospital Venous Doppler - RightBy: Jc DO, On: 03-Feb-2009 Intent Tessie A Comments: tomorrow- call wet read Radiology - Lumbar SpineBy: Jc DO, On: 03-Feb-2009 Intent Tessie A Radiology - Knee - Right - Weight On: 03-Feb-2009 Intent BearingBy: Jc BROUSSARD Tessie A Doppler Ultrasound OtherBy: Vicky On: 18-Sep-2008 Intent Catrina BROUSSARD DO, Kathleen Comments: lower extrem Stress EchocardiogramBy: Jc BROUSSARD, On: 07-Jun-2007 Intent Tessie A EKG ([id number])By: Melonie Greene DOa A On: 28-Apr-2007 Intent Comments: ordered to be done at the hospital CT - Brain/HeadBy: Tessie Greene DO A On: 20-Mar-2007 Intent Comments: with and without contrast- please do stat and call wet read IMMUNIZ ADMNIN, 1 VAC, SNGL/COMBO On: 04-Apr-2006 Intent ([id number])By: Libby Herndon PNEUM VAC ADLT/IMUMNOSPR, SBC/INTRM On: 04-Apr-2006 Intent ([id number])By: Libby Herndon Comments: Lot #:Expiration date:Amount given:Route: IMSite given:LEFT DELTOIDGiven by: JESSICA Weinberg IMMUNIZ ADMNIN, 1 VAC, SNGL/COMBO On: 04-Apr-2006 Intent ([id number])By: Tessie Greene DO PNEUM VAC ADLT/IMUMNOSPR, SBC/INTRM On: 04-Apr-2006 Intent ([id number])By: Tessie Greene DO Planned Medications INJECTION, METHYLPREDNISOLONE [...] Instructions Indication: Essential hypertension Encounters Annotation/Addendum On: 09-Apr-2018 16:12 Encounter Diagnosis: Soft [...] The patient does have durable power of workers compensation attorney and living will. The patient has [...] The patient does have durable power of workers compensation attorney and living will. The patient has noticed nothing from the geriatic depre ssion scale. Other providers contributing to the patient's care are other: ([facility] and eye mariza herrera and Dr. Zamora). Note for Annual Medicare Exam: NO labwork done for today and pt had her well woman exam done with [employer].-weight down trying - her bp up little [...] she hasnt needed too- more active in synagogue and that has h elped- no gerd [...] effective than benicar- she said mood in [facility] is reasonable- doesnt want to change- [...] to get back on track and joining [employer] [facility] [employer]- her mood is pretty good and brother [...] going up neck- took pulse was fine-started morning- not overtly stressed out- exertion no [...] g to weight watchers- still struggling with [facility]- retiring in may - had labs [...] other (anxiety, anemia). weight :. 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 Nichole at [facility]). Note for Follow up, Laboratory [...] in the past ,difficulty sleeping ,drug abuse ,cotton converter awakening ,episodes of spontaneous crying ,e xcessive [...]
--- OUTSIDE RECORDS SUMMARY | 2018-08-24 15:52 | XMS RPT_ITS | Continuity of Care Document ---
:1940 External Reference #:[id number] Author Organization [facility] Address [address] [facility] [place] [address] Phone Care Team Providers Name Role Phone Catrina Perry DO Unavailable Dr. Addison Kimball Unavailable [facility] PLASCENCIA, Dr. Janes Dougherty Unavailable Sadia Goel Unavailable Unavailable Carli Marks Unavailable Unavailable Libby Herndon Unavailable Unavailable Fallon Carranza Unavailable Unavailable Collections Technician, System Unavailable Unavailable Carolin Garber LPN Unavailable Unavailable Ziggya COMPUTER HARDWARE ENGINEER, Lori Unavailable Unavailable Unavailable Problems Name Dates [...] Active screening Status: Active screening Status: Active Suprapubic pain, acute (R10.2, 789.09) [...] 1 qd (20 MG) Active CITRACAL MAXIMUM, [id number] (Oral Tablet) 1 tab bid (315-250 MG-UNIT) [...] days Quantity: 1 {Puff(s)} Refills: 0 Ordered:30-Jan-2012 Alan SEVILLASgchica Vincent Start : 21-Jul-2011 End : 30-Jan-2012 Inactive [...] days Quantity: 1 {Cream} Refills: 0 Ordered:19-Aug-2010 Tanay Bermudez LPN Start : 23-Dec-2009 End : [...] Quantity: 1 {Package(s)} Refills: 0 Ordered:30-Jan-2012 Alan Megan SEVILLA Start : 21-Jul-2011 End : [...] Quantity: 90 {Tablet} Refills: 3 Ordered:30-Jan-2012 Tessie BROUSSARD Start : 30-Jan-2012 End : 30-Jan-2012 Discontinued [...] Quantity: 90 {Tablet} Refills: 3 Ordered:03-May-2012 Tessie BROUSSARD A Start : 03-May-2012 End : 03-May-2012 Discontinued PRILOSEC, 20MG (Oral Capsule Delayed Release) [address] qd for 90 days Quantity: 90 {Capsule_DR} Refills: 3 Ordered:30-Jan-2012 DO Tessie A Start : 30-Jan-2012 End : 30-Jan-2012 Discontinued REMIFEMIN MENOPAUSE, 20MG (Oral Tablet) 1 tab bid for 0 days Refills: 0 Ordered:08-Jan-2008 Libby Herndon End : 08-Jan-2008 Discontinued Allergies and Adverse Reactions Name Dates Details Bactrim *ANTI-INFECTIVE AGENTS - [facility] Status: Active (Allergy) Comments: nausea Allergy to [...] as of 01-May-2011 Procedures Date Value Details 19-Dec-2017 Abdomen Single View Result: Comments: See Note; NOTES: [facility] Imaging Services [address] [place] [address] Abdomen Single View MR#: [id number] Acct: [id number] Name: HERMAN LEONARD Bianca Rep #: [id number] D OB: 1940 F 76 From: Chris Rachel MD PCP: Catrina Perry DO Status: REG CLI Study: Abdomen Single View Date of Exam: 12/19/17 Exam# [id number] Ordering Dr: Acacia Whaley STUDY: X-RAY - [...] , Service support , CC: Acacia Whaley FLOOR PERSON; Catrina Perry DO Corporate Meeting Planner: Signed 20-May-2015 Dexa Bone Density Study (HP) Result: Comments: See Note; NOTES: [facility] Imaging Services [address] [place] [address] Verdana 4d Dexa Bone Density Study () MR#: [id number] Acct: [id number] Name : HERMAN LEONARD Rep #: [id number] : 1940 F 74 From: Michael Alonso MD PCP: Tessie Greene DO Status: REG CLI Study: Dexa Bone Density Study (HP) Date of Exam: 05/20/15 Exam# [id number] Orderi ng Dr: Tessie Greene DO STUDY: DUAL [...] Michael Alonso MD at 10:30 EST Tel [phone], Service support [phone], CC: Jailyn Yang MD; Tessie Greene DO Corporate Meeting Planner: Signed 06-Apr-2015 Bilat Scrn Digital AND CAD Result: Comments: See Note; NOTES: [facility] Imaging Services [address] [place] [address] Verdana 4d Bilat Scrn Digital AND CAD MR#: [id number] Acct: [id number] Name: HERMAN LEONARD Rep #: [id number] : 1940 F 74 From: Michael Alonso MD PCP: Tessie Greene DO Status: REG CLI Study: Bilat Scrn Digital AND CAD Date of Exam: 04/06/15 Exam# [id number] Ordering D r: Jc, Tessie DO MAMMOGRAPHY - BILATERAL SCREENING REASON [...] Michael Alonso MD at 7:54 EST Tel [phone], Service support [phone], CC: Tessie Greene DO Corporate Meeting Planner: Signed 05-Feb-2015 EKG (18750) Comments: ekg showed normal sinus rhythym, normal axis, no acute st/t wave changes Result: [MEASUREMENTS ANALYSIS] Date of Test: 02/05/2015 09:47:50; Heart Rate: 58; W[place] Interval: 156; QRS: 93; QT Interval: 420; Corrected QT Interval (QTc): 417; P Wave Mutual: 31; QRS Wave Mutual: 31; T Wave Mutual: 44; Blood Pressure: 122/84 [ECG DIAGNOSTIC STATEMENTS] Date of Test: 02/05/2015 09:47:50; Summary: Sinus Bradycardia WITHIN NORMAL LIMITS 27-Mar-2014 Bilat Scrn Digital & CAD Result: Comments: See Note; NOTES: [facility] Imaging Services [address] [place] [address] Breast Imaging Report MR#: [id number] Acct: [id number] Name: HERMAN LEONARD Rep #: [id number] : 1940 F 73 From: Michael Alonso MD PCP: Tessie Greene DO Status: REG CLI Exam# [id number] Ordering Dr: Tessie Greene DO MAMMOGRAPHY - [...] Michael Alonso MD at 9:36 EDT Tel [phone], Service support [phone], CC: Tessie Greene DO Corporate Meeting Planner: Signed 26-Mar-2013 Bilat Scrn Digital & CAD Result: Comments: See Note; NOTES: [facility] Imaging Services [address] [place] [address] Breast Imaging Report MR#: [id number] Acct: [id number] Name: HERMAN LEONARD Rep #: [id number] : 1940 F 72 From: Michael Alonos MD PCP: Tessie Greene DO Status: REG CLI Exam# [id number] Ordering Dr: Tessie Greene DO MAMMOGRAPHY - [...] March 26, 2013 at 2:33:33 PM EDT [phone] Electronically Signed GP/GP If you are the referring physician and would like to consult with the radiologist who pr ovided this interpretation, please contact Michael Alonso M.D. at [phone]. If this radiologist is unavailable, you will be directed to another radiologist to assist. If you are a patient w ith a question regarding this report, please contact your referring physician directly. Professional Interpretation Provided By: Didasco, Phone , These documents contain legally protected [...] of these documents. CC: Tessie Greene DO Corporate Meeting Planner: Signed Immunization Name Dates Details Pneumococcal (2 years and up) on: 04-Apr-2006 Pneumococcal (2 years and up) on: 04-Apr-2006 Comments: Lot #:Expiration date:Amount given:Route: IMSite given:LEFT DELTOIDGiven by: JESSICA Weinberg Family History Unknown Family Member Name Dates Details Father Comments: [place] Status: Active Mother Comments: CHF Status: Active Paternal Grandmother Comments: ABD CA Status: Active Social History Name Dates Details Alcohol Use Comments: Occasional alcohol use Status: Active Non Smoker/No Tobacco Use Status: Active Tobacco use: Never smoker. Status: Active Smoking Status Name Dates Details Never smoker Vital Signs Date Test Result Details :59 Temperature 97.4 f Comments: Method: Temporal [...] kg/m2 Body Surface Area Calculated 1.58 m2 60-Jkr-495862:52 Temperature 97.6 f Pulse 68 /min Comments: [...] kg/m2 Body Surface Area Calculated 1.58 m2 35-Yof-783540:20 Comments: 140/82 recheck bp Pulse 65 /min [...] 0788- 1 - *Hepatic Function PanelOrder Info: [id number] - *Lipid Profile CC PCPComments: 12 hours fasting, may have water.DR PÉREZ ORDERED LIPID/LIVERDR PERRY ORDERED TS H/CBCD/LIPID/CMP/UA/[facility] [address] [place], [place], [address] D BILI 0.11 mg/dL (Normal) Range: 0.00-0.30 :40 CBC W/Diff, Automated Comments: DR PÉREZ ORDERED LIPID/LIVERDR PERRY ORDERED TSH/CBCD/LIPID/CMP/UA/[facility] [address]zwbp[address] [place], [place], [address] SMEAR COMMENT SCANNED (Normal) Absolute Lymph 2.16 [...] 4.2-5.4 WBC 5.8 K/mm3 (Normal) Range: 4.4-11.0 48-Qdp-86981:40 Comprehensive Metabolic Comments: Order Date: 03/13/17Order Info: 0788-1 - *Hepatic Function PanelOrder Info: [id number] - *Lipid Profile CC PCPComments: 12 hours fasting, may have water.DR PÉREZ ORDERED LIPID/LIVERDR VICKY ORDERED TS Profil H/CBCD/LIPID/CMP/UA/[facility] [address] [place], [address] GAP 5 (Normal) Range: 5-15 CO2 32.0 [...] Comments: Please note revised GLUCOSE reference range bqvlnbikn92/02/2018. 09-Mbu-23041:40 Lipid Profile Comments: Order Date: 03/13/17Order Info: 0788-1 - *Hepatic Function PanelOrder Info: 50624-1 - *Lipid Profile CC PCPComments: 12 hours fasting, may have water.DR PÉREZ ORDERED LIPID/LIVERDR VICKY ORDERED TS H/CBCD/LIPID/CMP/UA/[facility] [address] [place], [address] VLDL 11 mg/dL (Normal) Range: [...] Comments: DR PÉREZ ORDERED LIPID/LIVERDR PERRY ORDERED TSH/CBCD/LIPID/CMP/UA/[facility] [address] [place], [place], [address] Ratio,Random UR MALB:CREAT 9.7 {mg/g_CRE} (Normal) MICROALBUMIN,UR 5.3 mg/L (Normal) UR CREAT 55.10 mg/dL (Normal) :40 Thyroid Stim Hormone Comments: Order Date: 03/13/17Order Info: 0788-1 - *Hepatic Function PanelOrder Info: [id number] - *Lipid Profile CC PCPComments: 12 hours fasting, may have water.DR PÉREZ ORDERED LIPID/LIVERDR PERRY ORDERED TS (TSH) H/CBCD/LIPID/CMP/UA/[facility] [address] [place], [place], [address] TSH 1.84 {uIU/mL} (Normal) Range: 0.358-3.74 98-Xhd-62697:40 Urinalysis, Complete Comments: DR PÉREZ ORDERED LIPID/JUNIOR PERRY ORDERED TSH/CBCD/LIPID/CMP/UA/MIACREHow was Urine Obtained? CLEAN [facility] [address] [place], [place], [address] MUCUS, URINE 0 SEEN {/hpf} (Normal) BACTERIA [...] (Normal) CLARITY Clear (Normal) COLOR Yellow (Normal) 91-Inl-089222:44 URINE ALEX CULTURE-IDENTIFICATN Comments: PATIENT NOT FASTINGPERFORMED BY: [facility] Mxxges6391 [facility] [id number] Information: [id number] ([id number]) Result 1 CNSNSS (Abnormal) Comments: Coagulase negative Staphylococcus species, not Staphylococcussaprophyticus.50,000-100,000 colony forming units per mLBased on resistance to oxacillin this isolate would be resistant toall [facility] av lable beta-lactam antimicrobial agents, with theexception of the newer cephalosporins with anti-MRSA activity, such asCeftaroline S = Susceptible; I = Intermediate; R = Resistant P = Positive; N = Negative MICS are expressed in micrograms per mL Antibiotic RSLT#1 RSLT#2 RSLT#3 RSLT#4Ciprofloxacin RGentamicin SLevofloxacin RLinezolid SNitrofurantoin SOxacillin RPenicillin RQuinupristin/Dalfopristin SRifampin STetracycline STrimethoprim/Sulfa SVancomycin S Urine Final report Culture,Compreh (Abnormal) ensive 98-Fyr-703916:10 Urinalysis, Office (20126) UA - LEUKOCYTE ESTERASE Small (Normal) UA - NITRITE Negative (Normal) URINE UROBILINGN JASMINE TIMED Normal mg/dL (Normal) UA - PROTEIN Negative mg/dL (Normal) UA - PH 7 (Normal) UA - BLOOD non-hemolyzed trace (Normal) UA - SPECIFIC GRAVITY 1.015 (Normal) UA - KETONES Negative mg/dL (Normal) UA - BILIRUBIN Negative (Normal) UA - GLUCOSE Negative (Normal) 43-Nnj-909528:16 Basic Metabolic Profile (BMP) Comments: [facility] [address] [facility]. [place], [place], [address] ; will review at appt GAP 6 [...] 7-18 GLU 87 mg/dL (Normal) Range: 70-110 85-Nro-475660:25 URINE ALEX CULTURE (JASMINE Comments: PATIENT NOT FASTINGPERFORMED BY: ManagerCompleteMakayla [place] [id number] [facility] [id number] Information: SRC:[facility] [id number] COL COUNT) (30109) Result 1 NG36 (Normal) Comments: No growth in 36 - 48 hours. Urine Culture,Comprehensive Final report (Normal) 77-Ibb-471648:44 Urinalysis, Office (27636) UA - LEUKOCYTE ESTERASE Negative (Normal) UA - NITRITE Negative (Normal) URINE UROBILINGN JASMINE TIMED Normal mg/dL (Normal) UA - PROTEIN Negative mg/dL (Normal) UA - PH 6.5 (Normal) UA - BLOOD Hemolyzed Trace (Normal) UA - SPECIFIC GRAVITY 1.010 (Normal) UA - KETONES Negative mg/dL (Normal) UA - BILIRUBIN Negative (Normal) UA - GLUCOSE Negative (Normal) 57-Dkl-804778:10 URINE ALEX CULTURE (JASMINE Comments: PATIENT NOT FASTINGPERFORMED BY: [facility] CenterWqssmz9739 [facility] [id number] Information: SRC:[facility] [id number] COL COUNT) (83052) Antimicrobial MIHEAD (Normal) Comments: S = Susceptible; [...] mL (Abnormal) Urine Final report Culture,Comprehensive (Abnormal) 77-Ijd-299020:24 Urinalysis, Office (65722) UA - LEUKOCYTE ESTERASE Small (Normal) UA - NITRITE Negative (Normal) URINE UROBILINGN JASMINE TIMED Normal mg/dL (Normal) UA - PROTEIN Negative mg/dL (Normal) UA - PH 6.5 (Normal) UA - BLOOD Non Hemolyzed Trace (Normal) UA - SPECIFIC GRAVITY 1.010 (Normal) UA - KETONES Negative mg/dL (Normal) UA - BILIRUBIN Negative (Normal) UA - GLUCOSE Negative (Normal) :28 Comprehensive Metabolic Profil Comments: Test performed at:[facility] [address] [place] [address] GAP 6 (Normal) Range: 5-15 [...] Comments: Please note revised CREATININE reference range cokigsdit20/22/2015. BUN 21 mg/dL (Abnormal) Range: 7-18 GLU 85 mg/dL (Normal) Range: 70-110 :28 Lipid Profile Comments: Test performed at:[facility] [address] [place] [address] ; non-emergent till apt VLDL [...] :35 CBC W/Diff, Automated Comments: Test performed at:[facility] [address] [place], [place] [address] ; non- emergent till apt Absolute Lymph [...] Range: 4.4-11.0 :35 CRP Comments: Test performed at:[facility] [address] [facility]. [place], [place] [address] C-REACTIVE PROT 38.60 mg/L (Abnormal) Range: 0.0-3.0 Comments: C-Reactive Protein (CRP) provides useful information for thediagnosis, therapy and monitoring of inflammatory processesand associated diseases. For the evaluation of Relative Riskfor Cardiovascular Dise ase, a High Sensitivity CRP (HSCRP)should be ordered. :35 Culture, Urine Comments: Test performed at:[facility] [address] [place] [address] CUUR See Note (Normal) Comments: Urine CultureCulture exhibits no growth. :35 Erythrocyte Sed Rate Comments: Test performed at:[facility] [address] [place] [address] SED RATE 24 mm/h (Normal) Range: 0-30 31-Ppu-322825:11 URINE ALEX CULTURE-JASMINE COL Comments: PATIENT NOT FASTINGPERFORMED BY: [facility] Aedrri4663 [facility] [id number] Information: SRC:[facility] [id number] COUNT (22284) Result 1 NG36 (Normal) Comments: No growth in 36 - 48 hours. Urine Culture,Comprehensive Final report (Normal) 93-Uet-607104:11 Urinalysis, Office (13512) UA - LEUKOCYTE ESTERASE Small (Normal) UA - NITRITE Negative (Normal) URINE UROBILINGN JASMINE TIMED Normal mg/dL (Normal) UA - PROTEIN Trace mg/dL (Normal) UA - PH 6 (Abnormal) UA - BLOOD non-hemolyzed trace (Normal) UA - SPECIFIC GRAVITY 1.020 (Normal) UA - KETONES Negative mg/dL (Normal) UA - BILIRUBIN Negative (Normal) UA - GLUCOSE Negative (Normal) 74-Sqg-889983:57 V-Zoster IgG (Immunity) Comments: Test performed at:[facility] [address] [facility] [place] [address] VZOST IgG 31982 1894 {index} (Normal) Comments: Negative <135 Equivocal 135 - 165 Positive >165A positive result generally indicates exposure to thepathogen or adm inistration of specific immunoglobulins,but it is not indication of active infection or stageof disease.Performed at: - [facility] [address] [id number] Director: Bernardino grady PhD, Phone: [phone]; ADDENDA: has been seen in office since drawn :48 CBC W/Diff, Automated Comments: Test performed at:[facility] [address] [place] [address] Absolute Lymph 1.40 {X10_3/ul} (Normal) [...] 4.2-5.4 WBC 4.3 K/mm3 (Abnormal) Range: 4.4-11.0 13-Led-09730:48 Comprehensive Metabolic Profil Comments: Test performed at:[facility] [address] [place], [place] [address] GAP 4 (Abnormal) Range: 5-15 CO2 28.0 [...] 7-18 GLU 90 mg/dL (Normal) Range: 70-110 25-Kmf-05622:48 Lipid Profile Comments: Test performed at:[facility] [address] [place], [place] [address] VLDL 14 mg/dL (Normal) Range: 5-40 LDL [...] Thyroid Stim Hormone (TSH) Comments: Test performed at:[facility] [address] [place] [address] TSH 1.57 {uIU/mL} (Normal) Range: [...] 7-18 GLU 87 mg/dL (Normal) Range: 70-110 09-Mar-20149:23 LIPID Comments: non-emergent till apt VLDL 18 [...] CHOL 151 mg/dL (Normal) Comments: <200 mg/dL Sxlrkhigg391-851 mg/dL Borderline>240 mg/dL High Risk :23 VZG 2963 {index} (Normal) Comments: Negative <135Equivocal 135 - 165Positive >165A positive result generally indicates exposure to thepathogen or administration of specific immunoglobulins,but it is not indicati on of active infection or stageof disease.Performed at: - [facility] [id number] Director: Bernardino Camargo PhD, Phone: [phone]; ADDENDA: normal and pt has apt tomorrow [...] CHOL 151 mg/dL (Normal) Comments: <200 mg/dL Fcrldvmtp663-587 mg/dL Borderline>240 mg/dL High Risk :17 VITD [...] CHOL 127 mg/dL (Normal) Comments: <200 mg/dL Soqzhqnxp117-054 mg/dL Borderline>240 mg/dL High Risk :49 CBCMD [...] CHOL 129 mg/dL (Normal) Comments: <200 mg/dL Mfgfhdvlx407-775 mg/dL Borderline>240 mg/dL High Risk HDL 48 [...] 250 nm ol/L)Toxicity >100 ng/mL (250 nmol/L)Effective 201225-Jun-201244-Acn-622469:32 URINE ALEX CULTURE (JASMINE Comments: PATIENT NOT FASTINGPERFORMED BY: [facility] Dxkmiw5467 Armenta RoadDuAtrium Health [facility] [id number] Information: SRC:UR [id number] COL COUNT) (48722) Result 1 CNSNSS (Normal) Comments: Coagulase negative Staphylococcus species, not Staphylococcussaprophyticus.100 Colonies/mL .Based on resistance to penicillin and susceptibility to o xacillinthis isolate would be susceptible to:* Penicillinase-stable penicillins; such as: Cloxacillin Dicloxacillin Nafcillin* Beta-lactam/beta-lactamase inhibitor combinations; such as: [place] xicillin-clavulanic acid Ampicillin-sulbactam* Antistaphylococcal cephems; such as: Cefaclor Cefuroxime* Antistaphylococcal carbapenems; such as: Imipenem Meropenem S = Susceptibl e; I = Intermediate; R = Resistant P = Positive; N = Negative MICS are expressed in micrograms per mL Antibiotic RSLT#1 RSLT#2 RSLT#3 RSLT#4 Ciprofloxacin SGentamicin SLevofloxacin SNitrofurantoin SOxacillin SPenicillin RRifampin STetracycline STrimethoprim/Sulfa SVancomycin S Urine Final report Culture,Comprehensi (Normal) ve 92-Dqc-567334:35 Urinalysis, Office (49455) UA - BILIRUBIN Negative (Normal) UA - BLOOD Hemolyzed Large (Normal) UA - GLUCOSE Negative (Normal) UA - KETONES Small mg/dL (Normal) UA - LEUKOCYTE ESTERASE Large (Normal) UA - NITRITE Negative (Normal) UA - PH 7.0 (Normal) UA - PROTEIN 100 mg/dL (Normal) UA - SPECIFIC GRAVITY 1.020 (Normal) URINE UROBILINGN JASMINE TIMED Normal mg/dL (Normal) 4-Wwq-140763:19 Urinalysis, Office (58881) UA - BILIRUBIN Negative (Normal) UA - BLOOD Hemolyzed Trace (Normal) UA - GLUCOSE Negative (Normal) UA - KETONES Negative mg/dL (Normal) UA - LEUKOCYTE ESTERASE Negative (Normal) UA - NITRITE Negative (Normal) UA - PH 7.5 (Normal) UA - PROTEIN Negative mg/dL (Normal) UA - SPECIFIC GRAVITY 1.015 (Normal) URINE UROBILINGN JASMINE TIMED Normal mg/dL (Normal) 3-Bem-966451:11 URINE ALEX CULTURE-IDENTIFICATN Comments: PATIENT NOT FASTINGPERFORMED BY: [facility] Ykkbuy3336 [facility] [id number] Information: [id number] (76159) Result 1 NG36 (Normal) Comments: No growth [...] mg/dL Borderline >240 mg/dL High Risk :33 [facility] 0 SEEN {/hpf} (Normal) UBAC [...] Signed:Mikhail Palencia MDNovember 2011 at 5:31:33 PM [id number] Signed TP/TP If you are the referring physician and would like to consult with theradiologist who provided this inter pretation, please contact Mikhail Palencia MD at [phone]. If this radiologist is unavailable, you will bedirected to another radiologist to assist. If you are a patient with a question regarding this re port, pleasecontactyour referring physician directly. Professional Interpretation Provided By: Didasco, Phone , These documents contain legally protected [...] 04/08/12 1738 Sign by: Mikhail Palencia MD 4-Tbm-448834:01 BILAT SCRN DIGITAL & CAD Radiology Report [...] Alonso M.D.March 05, 2012 at 2:05:30 PM [id number] Signed GP/GP If you are the referring physician and would like to consult with theradiologist who provided this interpretation, please contact Stuart Wills at [phone]. If this radiologist is unavailable, youwill be directed to another radiologist to assist. If you are a patient with a question regarding this report, pleasecontactyour referring physician directly. Professional Interpretation Provided By: Didasco, Phone , These documents contain legally protected [...] as outlined above, according toWorldHealth Organization (WHO) hait carlos. Fracture risk is moderate. Reference Information:The [...] Alonso M.D.March 05, 2012 at 2:52:24 PM [id number] Signed GP/GP If you are the referring physici an and would like to consult with theradiologist who provided this interpretation, please contact Stuart Wills at [phone]. If this radiologist is unavailable, youwill be directed to anot her radiologist to assist. If you are a patient with a question regarding this report, pleasecontactyour referring physician directly. Professional Interpretation Provided By: Didasco, Phone , These documents contain legally protected [...] ITS IMPORTSign by Michael Alonso MD on 1458 Sign by: Michael Alonso MD 11-Mgj-96931:26 CBCEM Comments: This patient requested that [facility] send to you acopy of [...] PLATELETS (Normal) Comments: This patient requested that [facility] send to you acopy of their Yearly Employee Health Risk Assessment.A copy of this report is also given to the patient so theycan follow up with your office if they choose. :26 EMP Comments: This patient requested that [facility] send to you acopy of their Yearly [...] :26 UAEM Comments: This patient requested that [facility] send to you acopy of [...] (Normal) UCLAR CLEAR (Normal) UCOL YELLOW (Normal) 40-Fmg-983507:01 VITD 45.5 ng/mL (Normal) Range: 30.0-100.0 Comments: Vitamin D deficiency has been defined by the [place] ofMedicine and an Endocrine Society practice guideline as alevel of serum 25-OH vitamin D less than 20 ng/mL (1,2).The Endocrine Society went on to further define vitamin Dinsufficiency as a level between 21 and 29 ng/mL (2).1. IOM ([place] of Medicine). 2010. Dietary reference intakes for calcium and D. [place]: The National Academies Press.2. Paxton CERON, Rojelio OSPINA, Cortney GARIBAY, et al. Evaluation, treatment, and prevention of vitamin D deficiency: an Endocrine Society clinical practice guideline. JCEM. 2010; 96(7): 1911-30.Performed at: - [address] [id number] Director: Korin Harris MD, Phone: [phone] 62-Kgq-728625:34 HEPATOBILIARY IMAGING Radiology Report See Note (Normal) [...] (Genny Jensen al,Journal of Nuclear Medicine 32:1695, 1991). To consult with a radiologist regarding this report, please call our 39L6wsqiwnu line @ Dictated on 05/31/11 0818 by Ehsan Vázquez DOTranscribed on 05/31/112030 by ITS IMPORTSign by Ehsan Vázquez DO on 05/31/112031 Sign by: Gurpreet Ehsan BROUSSARD 60-Mgn-000102:54 TOE(S),MIN 2 VIEWS Radiology Report See Note [...] regarding this rep ort, please call our 90G3mdaghkr line @ Dictated on 05/30/11 1150 by [...] of the right kidney. The right kidn vsyndjuleg99.6 x 4.7 x 4.0 cm. Normal renal cortex. There is a simple cyst of theright kidney measuring 1.6 cm. There are no demonstrated renal calculi.There is no hydronephrosis. There is no ascites . IMPRESSION:1. No gallstones or gallbladder wall thickening. 2. Simple right renal cyst. Dictated on 05/02/11 0830 by MAIA SHELTON MD, BTranscribed on 05/02/11 1223 by ITS IMPORTSign [...] 7-18 GLU 76 mg/dL (Normal) Range: 70-110 47-Jpf-418552:02 TROPONIN-I < 0.02 ng/mL (Normal) Comments: TROPONIN-I EXPECTED VALUES <0.05 NEGATIVE 0.06 - 0.59 AT RISK OF IN > OR = 0.60 SUGGEST IN :11 ANKLE,MIN 3 VIEWS Radiology Report See [...] 12/14/10 1005 Sign by: GISSELLE GONZALES MD 35-Fxd-12540:52 URINE ALEX CULTURE (JASMINE COL Comments: PATIENT NOT FASTINGPERFORMED BY: [facility] Xkyidr6167 [facility] [id number] COUNT) ([id number]) Result 1 NG36 (Normal) Comments: No growth in 36 - 48 hours. Urine Culture,Comprehensive Final report (Normal) :07 Urinalysis, Office (04019) UA - BILIRUBIN Negative (Normal) UA - [...] CHOL 150 mg/dL (Normal) Comments: <200 mg/dL Clmhcpile549-005 mg/dL Borderline>240 mg/dL High Risk HDL 56 [...] CHOL 150 mg/dL (Normal) Comments: <200 mg/dL Pugiwkrnk503-192 mg/dL Borderline>240 mg/dL High Risk LDH 160 [...] (Normal) Comments: Result: NEGATIVE COLOR YELLOW (Normal) 56-Tpg-686134:10 [facility] Rad[facility] See Note Comments: Exam Number: [id number] MAMMOGRAPHY - BILATERAL SCREENING INDICATION:Routine annual screening [...] not delay biopsy of a clinicallysuspicious abnormality.ADDENDUM: [id number] HPBI/MDS MAMMOGRAPHY - BILATERAL SCREENING INDICATION:Routine annua [...] attach ing a ResultCode to this exam.ADDENDUM: [id number] HPBI/MDS Reported By: GISSELLE GONZALES M.D. 56-Uef-613225:09 DEXA BONE DENSITY STUDY (HP) Radiology Report See Note Comments: Exam Number: [id number] CLINICAL:The patient is a 69-year-old female who is postmenopausal with pasthistory of hormone replacement therapy. History of fracture of C4wobech history of osteoporosis EXAMINA (Normal) TION:DUAL ENERGY X-RAY ABSORPTIOMETRY / DEXA. TECHNIQUE:Bone Density Measurements (BMD) of lumbar spine and bilateral hipswere obtained using a Zenogen scanner. COMPARISON:March 24 999, October 29, 2002, [...] NIH Osteoporosis and Related Bone Diseases http://www.osteo.org2. Flooring Machine Feeder [facility] Society for Clinical Densitometryhttp://www.iscd.org3. National Osteoporosis Foundation http://www.nof.org Reported By: GISSELLE GONZALES M.D. 24-Dec-19 VIT D,25 01021 39.0 ng/mL Range: 32.0-100.0 1012:08 (Normal) Comments: Recent studies consider the lower limit of 32.0 ng/mL to isabel threshold for optimal health.Sheng BURNETT. J Nutr. 2005 Jul;135(2):317- 22.Performed at: [facility] [id number] [place], [place] [address] 296Lab Director: Korin Harris MD, Phone: [phone] 29-Oct-19 C DIF TOXIN/AG See Note Comments: [...] Crytosporidium parvum,Cyclospora, or Microsporidia.__ TESTING PERFORMED AT [facility]. ORIGINAL REPORT ONFILE IN LAB CONTAINS ADDITIONAL TEST SITE INFORMATION. OVA/ PARASITES EXAM NO OVA, CYSTS, OR PARASITES FOUND. :40 WBC,STOOL See Note (Normal) Comments: FECAL WBCs NONE SEEN 81-Hpp-835800:25 ABDOMEN/PELVIS WITH CONTRAST Radiology Report See Note (Normal) Comments: Exam Number: [id number] CLINICAL:This is a 68-year-old female patient with [...] SED RATE 48 mm/h (Abnormal) Range: 0-30 80-Hnm-109877:55 URINE ALEX CULTURE (JASMINE Comments: PATIENT NOT FASTINGPERFORMED BY: [facility] CenterHhrtgj8525 [facility] [id number] Information: SRC:UR [id number] COL COUNT) (12543) Result 1 NG36 (Normal) Comments: No growth in 36 - 48 hours. Urine Culture,Comprehensive Final report (Normal) 90-Aoz-043400:20 Urinalysis, Office (00510) UA - LEUKOCYTE ESTERASE Small (Normal) UA - NITRITE Negative (Normal) URINE UROBILINGN JASMINE TIMED 2 mg/dL (Normal) UA - PROTEIN Negative mg/dL (Normal) UA - PH 7.0 (Normal) UA - BLOOD Hemolyzed Trace (Normal) UA - SPECIFIC GRAVITY 1.015 (Normal) UA - KETONES Negative mg/dL (Normal) UA - BILIRUBIN Negative (Normal) UA - GLUCOSE Negative (Normal) 76-Ead-30528:11 BREAST UNILATERAL US () Radiology Report See Note (Normal) Comments: Exam Number: [id number] CLINICAL:The patient is a 68-year-old female with [...] year isrecommended. Reported By: GISSELLE GONZALES M.D. 86-Fvr-03840:03 LIPID HDL 48 mg/dL (Normal) Comments: Reference [...] CHOL 147 mg/dL (Normal) Comments: <200 mg/dL Dhginzuaa048-117 mg/dL Borderline>240 mg/dL High Risk :03 LIVER ALB 4.2 g/dL (Normal) Range: 3.4-5.0 ALK P 66 U/L (Normal) Range: 50-136 ALT 29 U/L (Normal) Range: 12-78 AST 20 U/L (Normal) Range: 15-37 D BILI 0.09 mg/dL (Normal) Range: 0.00-0.30 T BILI 0.30 mg/dL (Normal) Range: 0.00-1.00 T PROT 7.9 g/dL (Normal) Range: 6.4-8.2 85-Fwc-786714:41 Urinalysis, Office (30460) UA - LEUKOCYTE ESTERASE Trace (Normal) UA [...] Report See Note (Normal) Comments: Exam Number: [id number] CLINICAL: 68-year-old female with knee pain lateral [...] a full thickness radial tear of the die holder ior horn of the medial meniscus extending [...] last examination. Reported By: John Alcocer M.D. :24 KNEE,4 OR MORE VIEWS (MT) Radiology Report See Note (Normal) Comments: Exam Number: [id number] CLINICAL:Pain X-RAY EXAMINATION RIGHT KNEE TECHNIQUE:4 view(s) [...] change. Osteopenia. Reported By: ARIADNA PERAZA M.D. 1-Fqr-717847:23 L/S SPINE,MIN 4 VIEWS (MT) Radiology Report See Note (Normal) Comments: Exam Number: [id number] CLINICAL:Low back pain, radiculopathy X-RAY EXAMINATION: LUMBAR [...] acute fracture. Reported By: ARIADNA PERAZA M.D. 6-Jle-724433:00 EMP URINALYSIS BILIRUBIN URINE SeeNote (Normal) Comments: [...] Range: 0.2 - 1.0 COLOR YELLOW (Normal) :00 ROUTINE UA BILIRUBIN URINE SeeNote (Normal) Comments: [...] 6.4-8.2 URIC 4.3 mg/dL (Normal) Range: 2.6-6.0 93-Wpk-86015:31 DEXA BONE DENSITY STUDY () Radiology Report See Note (Normal) Comments: Exam Number: [id number] BONE DENSITOMETRY HISTORYOsteopenia. TECHNIQUE Bone densitometry of the lumbar spine and both hips is now beingperformed. The best criteria for evaluation of osteoporosis is theT-value, which represents the comparison of the patient's bone mass leigh expected peak bone mass. For most patients, the mean T-value of N1lzdetfs L4 is used to evaluate the lumbar [...] density is measured at 7.2% less than tr2815.The T-valu e of the right femoral neck is -2 which is in the range ofosteopenia.The T- value of the total right hip is -1.7 which is in the range ofosteopenia. IMPRESSIONThere is osteopenia of the lumbar spine and both hips. Reported By: GISSELLE GONZALES M.D. 70-Grl-26575:54 BREAST UNILATERAL US () Radiology Report See Note (Normal) Comments: Exam Number: [id number] TARGETED LEFT BREAST ULTRASOUND HISTORYAbnormal mammogram. High-resolution [...] Greene's office and the office was called [id number] hours December 22, 2008. Reported By: GISSELLE GONZALES M.D. 54-Pyt-073900:35 UNILAT LT DIAG DIGITAL & CAD Radiology Report See Note (Normal) Comments: Exam Number: [id number] MAMMOGRAM, UNILATERAL LEFT DIAGNOSTIC DIGITAL AND CAD [...] and small nodules,ultrasound is recommended. The pa hector preferred to schedule theultrasound December 21, 2008, [...] 1992 (MQSA). The mammograms werealso examined w [employer] computer-aided detection software (Isotera, [employer], [facility] Reported By: GISSELLE GONZALES M.D. 59-Mwh-776743:30 BILAT SCRN DIGITAL & CAD Radiology Report See Note (Normal) Comments: Exam Number: [id number] MAMMOGRAM, BILATERAL SCREENING DIGITAL AND CAD HISTORYRoutine [...] mammograms werealso examined with computer-aided detection software ([employer].). Reported By: GISSELLE GONZALES M.D. :37 BMP BUN 15 mg/dL (Normal) Range: 7-18 [...] g/dL (Normal) Range: 6.4-8.2 :11 AT3 F/I 70914 AT3 AG, IMMUNOL 131 % (Abnormal) Range: 75-130 AT3 FUNCT 86248 131 % (Normal) Range: 75-135 :11 PROT C 778487 PROT C,[id number] 169 % (Abnormal) Range: 74-151 Comments: Performed At: [address] [id number] PROTEIN C 10395 106 % (Normal) Range: 70-140 :11 PROT S 369844 PROTEIN S, FREE 107 % (Normal) Range: 56-124 PROTEIN S, FUNC 82 % (Normal) Range: 60-145 PROTEIN S,TOTAL 137 % (Normal) Range: 58-150 :38 A-CARDIO 025836 Comments: ORDER ALSO STATES ANTIPHOSPHOLIPIDS, WHICH IS [...] mm/h (Normal) Range: 0-30 :38 FAC II 072643 Comments: ORDER ALSO STATES ANTIPHOSPHOLIPIDS, WHICH IS A SYNONYM OFANTICARDIOLIPIN FACTOR II,DNA Comment (Normal) Comments: NEGATIVENo mutation identified.Comment:A point mutation (C41812A) in the Factor II (prothrombin)gene is the [...] protein C and protein S. :38 [facility] [id number] Comments: ORDER ALSO STATES ANTIPHOSPHOLIPIDS, WHICH IS [...] , elevatedhomocysteine levels, or a Factor II/prothrombin mutation(G71660L). Contact you r local [facility] for information [...] 0.2 EU/dl (Normal) Range: 0.2 - 1.0 88-Bpv-97610:48 Urinalysis, Office (78926) UA - BILIRUBIN Negative (Normal) UA - BLOOD Negative (Normal) UA - GLUCOSE Negative (Normal) UA - KETONES Negative mg/dL (Normal) UA - LEUKOCYTE ESTERASE Trace (Normal) UA - NITRITE Negative (Normal) UA - PH 6.5 (Normal) UA - PROTEIN Negative mg/dL (Normal) UA - SPECIFIC GRAVITY 1.005 (Normal) URINE UROBILINGN JASMINE TIMED 2 mg/dL (Normal) 1-Xlq-091560:04 BILAT SCRN DIGITAL & CAD Radiology Report See Note (Normal) Comments: Exam Number: [id number] MAMMOGRAM, BILATERAL SCREENING DIGITAL AND CAD HISTORYRoutine [...] werea lso examined with computer-aided detection software (Isotera, [employer] Reported By: GISSELLE GONZALES M.D. 1-Pjb-809281:41 DEXA BONE DENSITY STUDY () Radiology Report See Note (Normal) Comments: Exam Number: [id number] BONE DENSITOMETRY HISTORYOsteopenia. TECHNIQUE Bone densitometry of [...] density is measured at 0.2% less than up5396 and 0.1% more than in 2005. IMPRESSIONThere [...] (Normal) Range: 0.2 - 1.0 :00 METAN,U24 5530 Comments: DATE STARTED 05/12/07, TIME STARTED 599DATE ENDED 05/13/07, TIME ENDED 0600 METANEPH,U24 64 {ug/24_hr} (Normal) Range: 35-460 METANEPHRINE,UR 41 ug/L (Normal) NORMETANEPH,U24 301 {ug/24_hr} (Normal) Range: 110-1050 NORMETANEPH,UR 194 ug/L (Normal) :00 VMA,U24 4146 Comments: DATE STARTED 05/12/07, TIME STARTED 599DATE ENDED 05/13/07, TIME ENDED 06 VMA,24UR 5.3 {mg/24_hr} (Normal) Range: 1.8-6.7 Comments: Performed At: [address] [id number] VMA,UR 3.4 mg/L (Normal) :16 ALDOST,U24 4297 Comments: 24 H URINE TV = 2580 ML ALDOSTERONE,U24 3 {ug/24_hr} (Normal) Range: 2-21 Comments: 1 mo. 1 - 11 1- 12 mos. 1 - 22 1- 16 yrs. 2 - 16 Adult Ranges Normal diet 2 - 21 Low salt 17 - 44 High salt 0 - 14Performed At: [address] [id number] ALDOSTERONE,UR 1 ug/L (Normal) 62-Tii-246113:17 BRAIN/HEAD W/WO CONTRAST Radiology Report See Note (Normal) Comments: Exam Number: [id number] CT SCAN OF BRAIN HISTORYHeadache. Scans were [...] ethmoid sinusitis. Reported By: GISSELLE GONZALES M.D. 31-Gmp-74948:51 CBC With Differential/Platelet Comments: PERFORMED BY: [facility] CenterHsuqqo2391 [facility] [id number] Baso (Absolute) 0.1 {x10E3/uL} (Normal) Range: 0.0-0.2 [...] Comp. Metabolic Panel (14) Comments: PERFORMED BY: [facility] [id number] A/G Ratio 1.5 (Normal) Range: 1.1-2.5 Albumin, [...] Sedimentation 4 mm/h (Normal) Comments: PERFORMED BY: [facility] [id number] :51 Rate-Westergren Range: 0-30 :29 CULTURE, URINE URINE CULTURE See Note {CFU/mL} (Normal) Comments: COLONY COUNT >100,000 ORGANISM 1: ENTEROCOCCUS FAECALIS ENTEROCOCCUS FAECALIS: REACTION CIPROFLOXACIN GP $$$ <=0.5 S LEVOFLOXAC IN $$ <=1 S NITROFURANTOIN $ <=32 S PENICILLIN G (ENTEROCOCCUS) $$ 2 S TETRACYCLINE $$ <=1 S VANCOMYCIN $$ <=0.5 S 5-Sje-560046:29 ROUTINE UA BILIRUBIN URINE SeeNote (Normal) Comments: [...] EASY BRUISABILITY OF SKIN Planned Observations TSH (42978)Indication: Hypercholesterolemia On: :51 Request URINALYSIS, W/ MICRO (38164)Indication: Essential hypertension On: :51 Request MICROALBUMIN: CREATININE RATIO (00768) AND (02412)Indication: Essential hypertension On: :51 Request METABOLIC PANEL, COMPREHENSIVE (32046)Indication: Essential hypertension On: :51 Request LIPID PANEL (45056)Indication: Essential hypertension On: :51 Request CBC W/AUTO DIFF WBC (54758)Indication: Essential hypertension On: :51 Request Metabolic Panel, Basic (74732)Indication: Essential hypertension On: 77-Mwu-956215:32 Request Comments: 2 weeks Vitamin D Hydroxy (58837)Indication: Osteopenia On: :23 Request URINALYSIS, W/ MICRO (97041)Indication: Essential hypertension On: :23 Request CBC W/AUTO DIFF WBC (21132)Indication: Essential hypertension On: :23 Request METABOLIC PANEL, COMPREHENSIVE (80542)Indication: Essential hypertension On: :23 Request LIPID PANEL (98641)Indication: Hypercholesterolemia On: :22 Request SED RATE ERYTHROCYTE (54416)Indication: Abdominal pain, acute, generalized On: 04-Qpn-040124:47 Request C-REACTIVE PROTEIN (38884)Indication: Abdominal pain, acute, generalized On: :47 Request CBC with auto diff (70703)Indication: Abdominal pain, acute, generalized On: 41-Mhz-503311:46 Request URINALYSIS, W/ MICRO (43713)Indication: Essential hypertension On: :27 Request LIPID PANEL (66406)Indication: Hypercholesterolemia On: :27 Request METABOLIC PANEL, COMPREHENSIVE (91951)Indication: Essential hypertension On: :26 Request VARICELLA-ZOSTER ANTBODY (01355)Indication: Hypercholesterolemia On: 34-Gag-789242:58 Request TSH (49721)Indication: Anxiety associated with depression On: 40-Ztl-331398:12 Request LIPID PANEL (31057)Indication: Hypercholesterolemia On: 34-Sad-479715:12 Request CBC W/AUTO DIFF WBC (16594)Indication: Essential hypertension On: 59-Inq-075355:12 Request METABOLIC PANEL, COMPREHENSIVE (64135)Indication: Essential hypertension On: 51-Hnv-051609:12 Request VARICELLA-ZOSTER ANTBODY (60576)Indication: screen On: 68-Luy-123716:59 Request CBC WITH MANUAL DIFF (03155)Indication: Essential hypertension On: 16-Aby-698670:59 Request LIPID PANEL (86404)Indication: Hypercholesterolemia On: 33-Oki-276921:58 Request METABOLIC PANEL, COMPREHENSIVE (43716)Indication: Essential hypertension On: 53-Atc-097474:58 Request Vitamin D Hydroxy (98757)Indication: Osteopenia On: :33 Request METABOLIC PANEL, COMPREHENSIVE (37632)Indication: Essential hypertension On: :33 Request LIPID PANEL (52102)Indication: Hypercholesterolemia On: :33 Request METABOLIC PANEL, COMPREHENSIVE (00624)Indication: Essential hypertension On: 73-Rjz-00419:57 Request LIPID PANEL (60543)Indication: Hypercholesterolemia On: 62-Uqd-02531:56 Request Vitamin D Hydroxy (20591)Indication: Anxiety associated with depression On: 55-Kmu-717218:51 Request CBC WITH MANUAL DIFF (18038)Indication: Essential hypertension On: :51 Request METABOLIC PANEL, COMPREHENSIVE (32676)Indication: Essential hypertension On: 60-Xuu-809160:51 Request TSH (36076)Indication: Anxiety associated with depression On: 67-Wnn-561447:51 Request LIPID PANEL (22697)Indication: Hypercholesterolemia On: :50 Request CBC WITH MANUAL DIFF (84422)Indication: Essential hypertension On: :30 Request METABOLIC PANEL, COMPREHENSIVE (35425)Indication: Essential hypertension On: : Request LIPID PANEL (41518)Indication: Hypercholesterolemia On: : Request URINALYSIS, W/ MICRO (23641)Indication: Essential hypertension On: :08 Request CBC WITH MANUAL DIFF (24408)Indication: Essential hypertension On: :08 Request METABOLIC PANEL, COMPREHENSIVE (74378)Indication: Essential hypertension On: :06 Request LIPID PANEL (96011)Indication: Hypercholesterolemia On: :06 Request LIPID PANEL (77110)Indication: Hypercholesterolemia On: :28 Request CBC WITH MANUAL DIFF (48739)Indication: Essential hypertension On: :28 Request METABOLIC PANEL, COMPREHENSIVE (66448)Indication: Essential hypertension On: :28 Request METABOLIC PANEL, COMPREHENSIVE (41662)Indication: Essential hypertension On: 22-Usy-185045:48 Request Vitamin D Hydroxy (22122)Indication: Depression On: :48 Request LIPID PANEL (53988)Indication: Hypercholesterolemia On: 17-Amh-547130:47 Request CBC WITH MANUAL DIFF (81958)Indication: Other chest pain On: 92-Vwp-047788:19 Request METABOLIC PANEL, COMPREHENSIVE (90151)Indication: Other chest pain On: 79-Rgd-090717:18 Request ASSAY, TROPONIN, QUANTITATIVE (aka Troponin I) (17522)Indication: Other chest pain On: 29-Wpv-125712:18 Request Comments: stat CALCIFEDIOL (35457)Indication: Eczema (Renamed from Dermatitis, eczematoid) On: 32-Pai-684406:34 Request OVA & PARASITE DIR SMEAR (73558)Indication: Diarrhea (Renamed from D (diarrhea)) On: 27-Zxd-715190:11 Request LEUKOCYTE COUNT, FECAL (16750)Indication: Diarrhea (Renamed from D (diarrhea)) On: 96-Rnv-840558:10 Request C.Difficile, Stool (52949)Indication: Diarrhea (Renamed from D (diarrhea)) On: 06-Pqd-371195:10 Request ALEX CULTURE-STOOL (37894)Indication: Diarrhea (Renamed from D (diarrhea)) On: 94-Jwr-451935:10 Request SED RATE ERYTHROCYTE (81649)Indication: Abdominal pain, acute, left lower quadrant On: 60-Mwf-537250:10 Request C-REACTIVE PROTEIN (91739)Indication: Abdominal pain, acute, left lower quadrant On: 95-Bqh-042280:10 Request URINALYSIS, W/ MICRO (19683)Indication: Abdominal pain, acute, left lower quadrant On: 00-Izl-634215:10 Request METABOLIC PANEL, COMPREHENSIVE (76631)Indication: Abdominal pain, acute, left lower quadrant On: 43-Tub-246218:10 Request CBC WITH MANUAL DIFF (10010)Indication: Abdominal pain, acute, left lower quadrant On: 09-Lam-268185:10 Request METABOLIC PANEL, COMPREHENSIVE (40974)Indication: Essential hypertension On: 55-Nuw-506844:47 Request HEPATIC FUNCTION PANEL (75946)Indication: Hypercholesterolemia On: 25-Ewj-498055:47 Request LIPID PANEL (36130)Indication: Hypercholesterolemia On: 21-Fie-260940:47 Request Vitamin D Hydroxy (76285)Indication: Osteopenia On: 55-Ene-758080:46 Request LIPID PANEL (30416)Indication: Hypercholesterolemia On: :38 Request HEPATIC FUNCTION PANEL (56372)Indication: Hypercholesterolemia On: 10-Mar-20098:38 Request Metabolic Panel, Basic (65797)Indication: DISORDERS, ORGANIC, SLEEP RELATED LEG CRAMPS On: 41-Csd-841266:17 Request URINALYSIS W/O MICRO (26776)Indication: Essential hypertension On: :48 Request TSH (49394)Indication: Essential hypertension On: 1-Ivq-511454:48 Request METABOLIC PANEL, COMPREHENSIVE (86672)Indication: Essential hypertension On: :48 Request CBC WITH MANUAL DIFF (80050)Indication: Essential hypertension On: :48 Request LIPID PANEL (81317)Indication: Hypercholesterolemia On: :48 Request CBC WITH MANUAL DIFF (06098)Indication: Anemia, unspecified On: :51 Request LIPID PANEL (77193)Indication: Hypercholesterolemia On: :31 Request HEPATIC FUNCTION PANEL (51087)Indication: Hypercholesterolemia On: :41 Request LIPID PANEL (35416)Indication: Hypercholesterolemia On: :41 Request SED RATE ERYTHROCYTE (37530)Indication: Headache (Renamed from Cephalalgia) On: :40 Request METABOLIC PANEL, COMPREHENSIVE (20220)Indication: Headache (Renamed from Cephalalgia) On: :39 Request CBC WITH MANUAL DIFF (30369)Indication: Headache (Renamed from Cephalalgia) On: :39 Request CBC WITH MANUAL DIFF (68249)Indication: EASY BRUISABILITY OF SKIN On: :59 Request PTT (ACTIVATED PARTIAL THROMBOPLASTIN TIME) (79413)Indication: EASY BRUISABILITY OF SKIN On: :59 Request PT (PROTHROMBIN TIME) (21268)Indication: EASY BRUISABILITY OF SKIN On: :59 Request HEPATIC FUNCTION PANEL (66333)Indication: Hypercholesterolemia On: :54 Request LIPID PANEL (59340)Indication: Hypercholesterolemia On: :54 Request Planned Encounters Medical; Other symptoms - lump on neck On: 10-Apr-2018 10:30 [facility] Acacia Whaley CNP Medical; 4 Month FU - On: 18-Apr-2018 10:30 [facility] Catrina Perry DO, DO, Kathleen Planned Procedures Ultrasound - ThyroidBy: Jovana OJEDA, On: 09-Apr-2018 Intent Acacia Wang Comments: attetion soft tissue rt side of neck Flu Vaccine (Quadrivalent) 53845Od: On: 13-Mar-2018 Intent Ladi Max Comments: Lot #[id number]-L dltd, IMDose prefilled syringegiven by:SABINA Mclain reviewed and ABN signed FLAT PLATE (92244)By: Jovana OJEDA, On: 19-Dec-2017 Intent Acacia Wang ELECTROCARDIOGRAM, COMPLETE (ECG) On: 12-Dec-2017 Intent (05521)By: Catrina Perry DO Comments: nsr no acute chg Catrina Perry DO Bone Density StudyBy: Tessie Greene DO On: 10-May-2015 Intent A Comments: screening ADMINISTRATION OF INFLUENZA VIRUS On: 05-Feb-2015 Intent VACCINE (G0008)By: Tessie Greene DO Flu Vaccine (Quadrivalent) 07151Xe: On: 05-Feb-2015 Intent Tessie Greene DO Comments: Lot:[id number]:09/01/15Dose:0.5mLRoute:IMSite:L DltdGiven By:MARTY signed MAMMOGRAM, SCREENING, BOTH BREAST On: 05-Feb-2015 Intent (08381)By: Tessie Greene DO Comments: reilly DEXA SCAN AXIAL SKELETON (48050)By: On: 05-Feb-2015 Intent Tessie Greene DO Comments: nov Solu -Medrol Injection, 125 mg On: 09-Dec-2014 Intent (J2930)By: Acacia Whaley CNP Comments: lot:[id number]:route:IMdose:125MGsite: R glutGiven by: ROSANGELA Gamble MAMMOGRAM, SCREENING, BOTH BREAST On: 13-Mar-2014 Intent (41658)By: Tessie Greene DO ADMINISTRATION OF INFLUENZA VIRUS On: 13-Mar-2014 Intent VACCINE (G0008)By: Tessie Greene DO FLU VAC, SPLIT, >3 YEARS, INTRAMUSC On: 13-Mar-2014 Intent (28834)By: Tessie Greene DO Comments: lot: [id number]: 12-01-13site/route: L del/IMamt: 0.5mLVIS signed when applicableROSANGELA Villa Eprescribed prescriptions (G8553)By: On: 16-Sep-2013 Intent Tessie Greene DO Eprescribed prescriptions (G8553)By: On: 18-Mar-2013 Intent Libby Herndon FLU VAC, SPLIT, >3 YEARS, INTRAMUSC On: 20-Feb-2013 Intent (80970)By: Fallon Carranza Comments: Lot:[id number]:Dose:0.5mLRoute:IMSite:L DltdGiven By:MARTY signed IMMUNIZ ADMNIN, 1 VAC, SNGL/COMBO On: 20-Feb-2013 Intent (49237)By: Fallon Carranza MAMMOGRAM, SCREENING, BOTH BREASTS On: 31-Dec-2012 Intent (37390)By: Tessie Greene DO Eprescribed prescriptions (G8553)By: On: 11-Nov-2012 Intent Libby Herndon Eprescribed prescriptions (G8553)By: On: 23-Sep-2012 Intent Libby Herndon EKG (56425)By: Libby Herndon On: 21-Aug-2012 Intent Comments: ekg showed normal sinus rhythym, normal axis, no acute st/t wave changes Eprescribed prescriptions (G8553)By: On: 25-Jun-2012 Intent Tanya Bermudez LPN PNEUM VAC ADLT/IMUMNOSPR, SBC/INTRM On: 03-May-2012 Intent (86235)By: Tessie Greene DO Comments: Lot:[id number]:08-06-13Dose:0.5mLRoute:IMSite:L armGiven By:AGA ADMINISTRATION OF PNEUMOCOCCAL On: 03-May-2012 Intent VACCINE (G0009)By: Tessie Greene DO Eprescribed prescriptions (G8553)By: On: 03-May-2012 Intent Libby Herndon Iavpmlxzr-Rmb-Cugnf (65744)By: Ciesa On: 08-Apr-2012 Intent Acacia OJEDA DXA, BONE DENSITY, AXIAL SKELETON On: 30-Jan-2012 Intent (66482)By: Tessie Greene DO MAMMOGRAM, SCREENING, BOTH BREASTS On: 30-Jan-2012 Intent (44927)By: Tessie Greene DO IMMUNIZ ADMNIN, 1 VAC, SNGL/COMBO On: 30-Jan-2012 Intent (40475)By: Megan Phillips LPN Comments: Lot/Exp: [id number], 11/2011Given in L Dltd, IMPrefilled SyringeBy ROEL Guzman FLU VAC, SPLIT, >3 YEARS, INTRAMUSC On: 30-Jan-2012 Intent (20833)By: Megan Phillips LPN Breast Screening - BilateralBy: [...] DO, Tessie A On: 01-May-2011 Intent EKG (10928)By: Libby Herndon On: 01-May-2011 Intent Comments: ekg showed normal sinus rhythym, normal axis, no acute st/t wave changes poor r wave progression unchanged TDAP VACCINE >7 IM (81755)By: On: 01-May-2011 Intent Libby Herndon Comments: work FLU VAC, SPLIT, >3 YEARS, INTRAMUSC On: 01-May-2011 Intent (28946)By: Libby Herndon Comments: work DXA, BONE DENSITY, AXIAL SKELETON On: 09-Feb-2011 Intent (11575)By: Monserrat Granado LPN MAMMOGRAM, SCREENING, BOTH BREASTS On: 09-Feb-2011 Intent (40765)By: Monserrat Granado LPN Radiology - Ankle - LeftBy: Ciesa On: 14-Dec-2010 Intent Acacia OJEDA Comments: call wet read to Acacia Whaley Eprescribed prescriptions (G8553)By: On: 15-Nov-2010 Intent Fast DO, Tessie A CT - Abdomen & PelvisBy: Fast DO, On: 26-Oct-2009 Intent Tessie A Comments: tomorrow call wet read EKG (02906)By: Libby Herndon On: 30-Aug-2009 Intent Comments: do [...] BROUSSARD, On: 07-Jun-2007 Intent Tessie Soler EKG ([id number])By: Tessie Greene DO On: 28-Apr-2007 Intent Comments: ordered to be done at the hospital CT - Brain/HeadBy: Tessie Greene DO On: 20-Mar-2007 Intent Comments: with and without contrast- please do stat and call wet read IMMUNIZ ADMNIN, 1 VAC, SNGL/COMBO On: 04-Apr-2006 Intent ([id number])By: Libby Herndon PNEUM VAC ADLT/IMUMNOSPR, SBC/INTRM On: 04-Apr-2006 Intent (31278)By: Libby Herndon Comments: Lot #:Expiration date:Amount given:Route: IMSite given:LEFT DELTOIDGiven by: JESSICA Weinberg IMMUNIZ ADMNIN, 1 VAC, SNGL/COMBO On: 04-Apr-2006 Intent (50806)By: Tessie Greene DO PNEUM VAC ADLT/IMUMNOSPR, SBC/INTRM On: 04-Apr-2006 Intent ([id number])By: Tessie Greene DO Planned Medications INJECTION, METHYLPREDNISOLONE [...] Indication: Essential hypertension Encounters Office Visit On: 09-Apr-2018 10:58 Encounter Reason: [...] The patient does have durable power of patent attorney and living will. The patient has [...] The patient does have durable power of patent attorney and living will. The patient has noticed nothing from the geriatic depre ssion scale. Other providers contributing to the patient's care are other: (hearing and eye dr- Dr herrera and Dr. Zamora). 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 - sydnie fracture - in cast- Hao did her [...] to get back on track and joining [email or web address]- her mood is pretty good and brother [...] with welbutrin more energy and seeing the outreach librarian-- no issues withthe crestor- wever since cortison [...] for chronic medical issues: her brother in [facility] and got a pressure sore- having [...] is also a 2 week f/u on graibay. 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
--- OUTSIDE RECORDS SUMMARY | 2018-08-24 15:54 | XMS RPT_ITS | Continuity of Care Document ---
:1940 External Reference #:[id number] Author Organization [facility] Address [facility] [address] [place] [address] Phone Care Team Providers Name Role Phone Catrina Perry DO Unavailable Dr. Addison Kimball Unavailable Duke PLASCENCIA, Dr. Janes Dougherty Unavailable Jcarlos HAMILTONN, Carolin Unavailable Unavailable Jovana MOLD SANDER, Acacia Wang Unavailable Libby Herndon Unavailable Unavailable Fallon Carranza Unavailable Unavailable Inspector Dials, System Unavailable Unavailable Ladi Max Unavailable Unavailable Unavailable Unavailable Problems Name Dates [...] 22.0-22.9, adult (Z68.22, V85.1) Status: Active BMI 25.0-25.9,adult (Z68.25, V85.21) [...] 1 qd (20 MG) Active CITRACAL MAXIMUM, 542-899GT-FNEV (Oral Tablet) 1 tab bid (315-250 MG-UNIT) [...] qd for 0 days Refills: 0 Ordered:07-Sep-2010 Arnold ROEL Cristine End : 07-Sep-2010 Inactive BUSPAR, 15MG (Oral [...] days Quantity: 30 {Capsule} Refills: 0 Ordered:14-Dec-2010 Arnold SEVILLA Cristine Start : 07-Sep-2010 End : 14-Dec-2010 Inactive DIOVAN, 320MG (Oral Tablet) 1 Tablet qd for 90 days Quantity: 90 {Tablet} Refills: 3 Ordered:24-Jun-2013 Corine Marcum MD Start : 24-Jun-2013 End : 24-Jun-2013 Inactive ETODOLAC CR, 400MG (Oral Tablet Extended Release 24 Hour) 2 (two) Tablet ER 24HR qd with food for 0 days Quantity: 30 {Tablet_ER_24HR} Refills: 0 Ordered:07-Sep-2010 Arnold SEVILLA Cristine Start : 19-Aug-2010 End : 07-Sep-2010 [...] days Quantity: 90 {Tablet} Refills: 3 Ordered:30-Jan-2012 Meloniea A Start : 30-Jan-2012 End : 30-Jan-2012 [...] Quantity: 90 {Tablet} Refills: 3 Ordered:03-May-2012 Tessie A Start : 03-May-2012 End : 03-May-2012 Discontinued PRILOSEC, 20MG (Oral Capsule Delayed Release) [address] qd for 90 days Quantity: 90 {Capsule_DR} Refills: 3 Ordered:30-Jan-2012 Tessie A Start : 30-Jan-2012 End : [...] Single View Result: Comments: See Note; NOTES: [facility] [address] [address] Abdomen Single View MR#: [id number] Acct: [id number] Name: HERMAN LEONARD Bianca Rep #: [id number] D OB: 1940 F 76 From: Chris Rachel MD PCP: Catrina Perry DO Status: REG CLI Study: Abdomen Single View Date of Exam: 12/19/17 Exam# [id number] Ordering Dr: Acacia Whaley STUDY: X-RAY - [...] , Service support , CC: Acacia Whaley WELL DRILL OPERATOR HELPER CABLE TOOL; Catrina Perry DO Blanking Press Operator: Signed 20-May-2015 Dexa Bone Density Study (HP) Result: Comments: See Note; NOTES: [facility] [address] [place] [address] Verdana 4d Dexa Bone Density Study (HP) MR#: [id number] Acct: [id number] Name : HERMAN LEONARD Rep #: [id number] : 1940 F 74 From: Michael Alonso MD PCP: Tessie Greene DO Status: [facility] CL Study: Dexa Bone Density Study (HP) Date of Exam: 05/20/15 Exam# [id number] Zulema ng Dr: Tessie Greene DO STUDY: DUAL [...] Michael Alonso MD at 10:30 EST Tel [phone], Service support [phone], CC: Jailyn Yang MD; Tessie Greene DO Blanking Press Operator: Signed 06-Apr-2015 Bilat Scrn Digital AND CAD Result: Comments: See Note; NOTES: [facility] [address] [place] [address] [place] [address] Verdana 4d Bilat Scrn Digital AND CAD MR#: [id number] Acct: [id number] Name: HORACIOHERMAN M Rep #: [id number] : 1940 F 74 From: Michael Alonso MD PCP: Tessie Greene DO Status: REG CLI Study: Bilat Scrn Digital AND CAD Date of Exam: 04/06/15 Exam# [id number] Ordering D r: Tessie Greene DO MAMMOGRAPHY [...] Michael Alonso MD at 7:54 EST Tel [phone], Service support [phone], CC: Tessie Greene DO Blanking Press Operator: Signed 05-Feb-2015 EKG (56025) Comments: ekg showed normal sinus rhythym, normal axis, no acute st/t wave changes Result: [MEASUREMENTS ANALYSIS] Date of Test: 02/05/2015 09:47:50; Heart Rate: 58; IN Interval: 156; QRS: 93; QT Interval: 420; Corrected QT Interval (QTc): 417; P Wave [place]: 31; QRS Wave [place]: 31; T Wave [place]: 44; Blood Pressure: 122/84 [ECG DIAGNOSTIC STATEMENTS] Date of Test: 02/05/2015 09:47:50; Summary: Sinus Bradycardia WITHIN NORMAL LIMITS 27-Mar-2014 Bilat Scrn Digital & CAD Result: Comments: See Note; NOTES: [facility] [address] [place] [address] Breast Imaging Report MR#: [id number] Acct: [id number] Name: HERMAN LEONARD Rep #: [id number] : 1940 F 73 From: Michael Alonso MD PCP: Tessie Greene DO Status: REG CLI Exam# [id number] Ordering Dr: Tessie Greene DO MAMMOGRAPHY - [...] Michael Alonso MD at 9:36 EDT Tel [phone], Service support [phone], CC: Tessie Greene DO Blanking Press Operator: Signed 26-Mar-2013 Bilat Scrn Digital & CAD Result: Comments: See Note; NOTES: [facility] Services [address] [place] [address] Breast Imaging Report MR#: [id number] Acct: [id number] Name: HERMAN LEONARD Rep #: [id number] : 1940 F 72 From: Michael Alonso MD PCP: Tessie Greene DO Status: REG CLI Exam# [id number] Ordering Dr: Tessie Greene DO MAMMOGRAPHY - [...] March 26, 2013 at 2:33:33 PM EDT [phone] Electronically Signed GP/GP If you are the referring physician and would like to consult with the radiologist who pr ovided this interpretation, please contact Michael Alonso M.D. at [phone]. If this radiologist is unavailable, you will be directed to another radiologist to assist. If you are a patient w ith a question regarding this report, please contact your referring physician directly. Professional Interpretation Provided By: Celframe, Phone , These documents contain legally protected [...] of these documents. CC: Tessie Greene DO Blanking Press Operator: Signed Immunization Name Dates Details Pneumococcal (2 years and up) on: 04-Apr-2006 Pneumococcal (2 years and up) on: 04-Apr-2006 Comments: Lot #:Expiration date:Amount given:Route: IMSite given:LEFT DELTOIDGiven by: EDILMA Weinberg Family History Unknown Family Member Name Dates Details Father Comments: NC Status: Active Mother Comments: CHF Status: Active Paternal Grandmother Comments: ABD CA Status: Active Social History Name Dates Details Alcohol Use Comments: Occasional alcohol use Status: Active Non Smoker/No Tobacco Use Status: Active Tobacco use: Never smoker. Status: Active Smoking Status Name Dates Details Never smoker Vital Signs Date Test Result Details 07-Oqp-34531:28 Pulse 61 /min Comments: Pattern: Regular Respiration [...] Height 0 in Head Circumference 0.00 cm 03-Zgx-580782:00 Temperature 96.9 f Comments: Method: Undefined Pulse [...] Height 0 in Head Circumference 0.00 cm 88-Mqm-16461:08 Temperature 98.2 f Comments: Method: Oral Pulse [...] 0788- 1 - *Hepatic Function PanelOrder Info: 65447-2 - *Lipid Profile CC PCPComments: 12 hours fasting, may have water.DR PÉREZ ORDERED LIPID/LIVERDR VICKY ORDERED TS H/CBCD/LIPID/CMP/UA/[facility] Hbptolvhgk0174 [place], [address] D BILI 0.11 mg/dL (Normal) Range: 0.00-0.30 :40 CBC W/Diff, Automated Comments: DR PÉREZ ORDERED LIPID/LIVERDR VICKY ORDERED TSH/CBCD/LIPID/CMP/UA/[facility] Lgflvevpjl6743 [place], [address] SMEAR COMMENT SCANNED (Normal) Absolute Lymph [...] 4.2-5.4 WBC 5.8 K/mm3 (Normal) Range: 4.4-11.0 51-Jyr-25075:40 Comprehensive Metabolic Comments: Order Date: 03/13/17Order Info: 0788-1 - *Hepatic Function PanelOrder Info: 54930-6 - *Lipid Profile CC PCPComments: 12 hours fasting, may have water.DR PÉREZ ORDERED LIPID/LIVERDR VICKY ORDERED TS Profil H/CBCD/LIPID/CMP/UA/[facility] [address] [place], [address] GAP 5 (Normal) Range: 5-15 CO2 32.0 [...] Comments: Please note revised GLUCOSE reference range pvalzefan78/02/2018. 21-Bmz-83335:40 Lipid Profile Comments: Order Date: 03/13/17Order Info: 0788-1 - *Hepatic Function PanelOrder Info: 73651-2 - *Lipid Profile CC PCPComments: 12 hours fasting, may have water.DR PÉREZ ORDERED LIPID/LIVERDR VICKY ORDERED TS H/CBCD/LIPID/CMP/UA/[facility] [address] [place], [place], [address] VLDL 11 mg/dL (Normal) Range: 5-40 LDL [...] Comments: DR PÉREZ ORDERED LIPID/LIVERDR PERRY ORDERED TSH/CBCD/LIPID/CMP/UA/[facility] [address] [place], [address] Ratio,Random UR MALB:CREAT 9.7 {mg/g_CRE} (Normal) MICROALBUMIN,UR 5.3 mg/L (Normal) UR CREAT 55.10 mg/dL (Normal) :40 Thyroid Stim Hormone Comments: Order Date: 03/13/17Order Info: 0788-1 - *Hepatic Function PanelOrder Info: 44853-2 - *Lipid Profile CC PCPComments: 12 hours fasting, may have water.DR PÉREZ ORDERED JUAN/JUNIOR PERRY ORDERED TS (TSH) H/CBCD/LIPID/CMP/UA/[facility] [address]qayz[address] [place], [address] TSH 1.84 {uIU/mL} (Normal) Range: 0.358-3.74 :40 Urinalysis, Complete Comments: DR PÉREZ ORDERED LIPID/JUNIOR PERRY ORDERED TSH/CBCD/LIPID/CMP/UA/MIACREHow was Urine Obtained? [facility] [address] [place], [address] MUCUS, URINE 0 SEEN {/hpf} [...] (Normal) CLARITY Clear (Normal) COLOR Yellow (Normal) 54-Ldc-019666:44 URINE ALEX CULTURE-IDENTIFICATN Comments: PATIENT NOT FASTINGPERFORMED BY: [facility] HospitalXqnotr0743 [facility] [id number] Information: [id number] (63390) Result 1 CNSNSS (Abnormal) Comments: Coagulase negative [...] S Urine Final report Culture,Compreh (Abnormal) omer 10-Rii-697654:10 Urinalysis, Office (90594) UA - LEUKOCYTE ESTERASE Small (Normal) UA - NITRITE Negative (Normal) URINE UROBILINGN JASMINE TIMED Normal mg/dL (Normal) UA - PROTEIN Negative mg/dL (Normal) UA - PH 7 (Normal) UA - BLOOD non-hemolyzed trace (Normal) UA - SPECIFIC GRAVITY 1.015 (Normal) UA - KETONES Negative mg/dL (Normal) UA - BILIRUBIN Negative (Normal) UA - GLUCOSE Negative (Normal) 87-Tya-563908:16 Basic Metabolic Profile (BMP) Comments: [facility] [address] [place], [address] ; will review at appt GAP 6 [...] 7-18 GLU 87 mg/dL (Normal) Range: 70-110 59-Atk-451201:25 URINE ALEX CULTURE (JASMINE Comments: PATIENT NOT FASTINGPERFORMED BY: [facility]Co[facility] HospitalMgtvjg8033 [facility] [id number] Information: [place] [place] [id number] COL COUNT) (09245) Result 1 NG36 (Normal) Comments: No growth in 36 - 48 hours. Urine Culture,Comprehensive Final report (Normal) 19-Uyq-933777:44 Urinalysis, Office (53727) UA - LEUKOCYTE ESTERASE Negative (Normal) UA - NITRITE Negative (Normal) URINE UROBILINGN JASMINE TIMED Normal mg/dL (Normal) UA - PROTEIN Negative mg/dL (Normal) UA - PH 6.5 (Normal) UA - BLOOD Hemolyzed Trace (Normal) UA - SPECIFIC GRAVITY 1.010 (Normal) UA - KETONES Negative mg/dL (Normal) UA - BILIRUBIN Negative (Normal) UA - GLUCOSE Negative (Normal) 47-Hsr-100186:10 URINE ALEX CULTURE (JASMINE Comments: PATIENT NOT FASTINGPERFORMED BY: [facility] Mxavzo3211 Kathi [facility] [place] [place] [id number] Information: [place] [place] [id number] COL COUNT) (58784) Antimicrobial MIHEAD (Normal) Comments: S = Susceptible; [...] mL (Abnormal) Urine Final report Culture,Comprehensive (Abnormal) 67-Vlj-046583:24 Urinalysis, Office (53100) UA - LEUKOCYTE ESTERASE Small (Normal) UA [...] 02-Feb-20157:28 Comprehensive Metabolic Profil Comments: Test performed at:[facility] [address] [place], [place] [address] GAP 6 (Normal) Range: 5-15 CO2 29.0 [...] Comments: Please note revised CREATININE reference range yluhmuxbs19/22/2015. BUN 21 mg/dL (Abnormal) Range: 7-18 GLU 85 mg/dL (Normal) Range: 70-110 :28 Lipid Profile Comments: Test performed at:[facility] [address] [place] [address] ; non-emergent till apt VLDL 18 [...] :35 CBC W/Diff, Automated Comments: Test performed at:[facility] [address]cs[address] [place] [address] ; non- emergent till apt Absolute [...] Range: 4.4-11.0 :35 CRP Comments: Test performed at:[address] [place] [id number] C-REACTIVE PROT 38.60 mg/L (Abnormal) Range: 0.0-3.0 Comments: C-Reactive Protein (CRP) provides useful information for thediagnosis, therapy and monitoring of inflammatory processesand associated diseases. For the evaluation of Relative Riskfor Cardiovascular Dise ase, a High Sensitivity CRP (HSCRP)should be ordered. :35 Culture, Urine Comments: Test performed at:[facility] [address] [place] [id number] CUUR See Note (Normal) Comments: Urine CultureCulture exhibits no growth. :35 Erythrocyte Sed Rate Comments: Test performed at:[address] [place] [address] SED RATE 24 mm/h (Normal) Range: 0-30 08-Tkr-156490:11 URINE ALEX CULTURE-JASMINE COL Comments: PATIENT NOT FASTINGPERFORMED BY: [address] [id number] Information: SRC:[facility] [id number] COUNT (68576) Result 1 NG36 (Normal) Comments: No growth in 36 - 48 hours. Urine Culture,Comprehensive Final report (Normal) 44-Sjt-458858:11 Urinalysis, Office (17921) UA - LEUKOCYTE ESTERASE Small (Normal) UA - NITRITE Negative (Normal) URINE UROBILINGN JASMINE TIMED Normal mg/dL (Normal) UA - PROTEIN Trace mg/dL (Normal) UA - PH 6 (Abnormal) UA - BLOOD non-hemolyzed trace (Normal) UA - SPECIFIC GRAVITY 1.020 (Normal) UA - KETONES Negative mg/dL (Normal) UA - BILIRUBIN Negative (Normal) UA - GLUCOSE Negative (Normal) 12-Ila-808204:57 V-Zoster IgG (Immunity) Comments: Test performed at:[facility] [address] [place] [address] VZOST IgG 20479 1894 {index} (Normal) Comments: Negative <135 Equivocal 135 - 165 Positive >165A positive result generally indicates exposure to thepathogen or adm inistration of specific immunoglobulins,but it is not indication of active infection or stageof disease.Performed at: [facility] LabCo[address] [id number] Director: Bernardino grady PhD, Phone: [phone]; ADDENDA: has been seen in office since drawn 58-Awo-61242:48 CBC W/Diff, Automated Comments: Test performed at:[facility] [address]qbl[address] [place] [address] Absolute Lymph 1.40 {X10_3/ul} (Normal) [...] 4.2-5.4 WBC 4.3 K/mm3 (Abnormal) Range: 4.4-11.0 42-Cav-51237:48 Comprehensive Metabolic Profil Comments: Test performed at:[facility] [address] [place] [address] GAP 4 (Abnormal) Range: 5-15 CO2 28.0 [...] 70-110 :48 Lipid Profile Comments: Test performed at:[facility] [address]lpbosns6695 [place] [address] VLDL 14 mg/dL (Normal) Range: [...] Thyroid Stim Hormone (TSH) Comments: Test performed at:[facility] [address]htfzvd17[address] [place] [address] TSH 1.57 {uIU/mL} (Normal) Range: [...] 4.2-5.4 WBC 5.2 K/mm3 (Normal) Range: 4.4-11.0 09-Mar-20149:23 CMP GAP 5 (Normal) Range: 5-15 CO2 [...] CHOL 151 mg/dL (Normal) Comments: <200 mg/dL Suorerbby897-473 mg/dL Borderline>240 mg/dL High Risk :23 VZG 2963 {index} (Normal) Comments: Negative <135Equivocal 135 - 165Positive >165A positive result generally indicates exposure to thepathogen or administration of specific immunoglobulins,but it is not indicati on of active infection or stageof disease.Performed at: [facility] [address] [id number] Director: Bernardino Camargo PhD, Phone: [phone]; ADDENDA: normal and pt has apt tomorrow [...] CHOL 151 mg/dL (Normal) Comments: <200 mg/dL Jvsxrztyl560-224 mg/dL Borderline>240 mg/dL High Risk :17 VITD [...] CHOL 127 mg/dL (Normal) Comments: <200 mg/dL Pxtmpigjd554-259 mg/dL Borderline>240 mg/dL High Risk :49 CBCMD [...] CHOL 129 mg/dL (Normal) Comments: <200 mg/dL Nipzpijqm394-739 mg/dL Borderline>240 mg/dL High Risk HDL 48 [...] 250 nm ol/L)Toxicity >100 ng/mL (250 nmol/L)Effective 201225-Jun-201265-Dpd-325860:32 URINE ALEX CULTURE (JASMINE Comments: PATIENT NOT FASTINGPERFORMED BY: [facility]Co[facility] HospitalNlqrlf8473 [facility] [id number] Information: SRC:UR [id number] COL COUNT) (46207) Result 1 CNSNSS (Normal) Comments: Coagulase negative [...] S Urine Final report Culture,Comprehensi (Normal) ve 49-Yqt-331742:35 Urinalysis, Office (07186) UA - BILIRUBIN Negative (Normal) UA - BLOOD Hemolyzed Large (Normal) UA - GLUCOSE Negative (Normal) UA - KETONES Small mg/dL (Normal) UA - LEUKOCYTE ESTERASE Large (Normal) UA - NITRITE Negative (Normal) UA - PH 7.0 (Normal) UA - PROTEIN 100 mg/dL (Normal) UA - SPECIFIC GRAVITY 1.020 (Normal) URINE UROBILINGN JASMINE TIMED Normal mg/dL (Normal) 7-Dog-214214:19 Urinalysis, Office (59137) UA - BILIRUBIN Negative (Normal) UA - BLOOD Hemolyzed Trace (Normal) UA - GLUCOSE Negative (Normal) UA - KETONES Negative mg/dL (Normal) UA - LEUKOCYTE ESTERASE Negative (Normal) UA - NITRITE Negative (Normal) UA - PH 7.5 (Normal) UA - PROTEIN Negative mg/dL (Normal) UA - SPECIFIC GRAVITY 1.015 (Normal) URINE UROBILINGN JASMINE TIMED Normal mg/dL (Normal) 6-Umr-422434:11 URINE ALEX CULTURE-IDENTIFICATN Comments: PATIENT NOT FASTINGPERFORMED BY: [facility] Skskad9308 [facility] [id number] Information: [id number] (14383) Result 1 NG36 (Normal) Comments: No growth in 36 - 48 hours. Urine Culture,Comprehensive Final report (Normal) 08-Apq-72550:33 CBCMD RBCM NORM C+C {NORMAL} (Normal) PE [...] 200-240 mg/dL Borderline >240 mg/dL High Risk 70-Tcs-78024:[address] [facility] 0 SEEN {/hpf} (Normal) [...] (Normal) UCLAR Clear (Normal) UCOL Yellow (Normal) 0-Kfz-780999:50 RIBS UNIL 2V NO CXR Radiology Report [...] Signed:Mikhail Palencia MDNovember 2011 at 5:31:33 PM [phone] Signed TP/TP If you are the referring physician and would like to consult with theradiologist who provided this inter pretation, please contact Mikhail Palencia MD at [phone]. If this radiologist is unavailable, you will bedirected to another radiologist to assist. If you are a patient with a question regarding this re port, pleasecontactyour referring physician directly. Professional Interpretation Provided By: [employer], Phone , These documents contain legally protected [...] 04/08/12 1738 Sign by: Mikhail Palencia MD 4-Kvx-260769:01 BILAT SCRN DIGITAL & CAD Radiology Report [...] Alonso M.D.March 05, 2012 at 2:05:30 PM [id number] Signed GP/GP If you are the referring physician and would like to consult with theradiologist who provided this interpretation, please contact Stuart Wills at [phone]. If this radiologist is unavailable, youwill be directed to another radiologist to assist. If you are a patient with a question regarding this report, pleasecontactyour referring physician directly. Professional Interpretation Provided By: Celframe, Phone , These documents contain legally protected [...] 1301 by Chris Alonso MDranscribed on 03/05/12 141 by ITS IMPORTSign by Michael Alonso MD on 03/05/121411 Sign by: Michael Alonso MD 05-Mar-20120:00 DEXA [...] Alonso M.D.March 05, 2012 at 2:52:24 PM [id number] Signed GP/GP If you are the referring physici an and would like to consult with theradiologist who provided this interpretation, please contact Stuart Wlils at [phone]. If this radiologist is unavailable, youwill be directed to anot her radiologist to assist. If you are a patient with a question regarding this report, pleasecontactyour referring physician directly. Professional Interpretation Provided By: Celframe, Phone , These documents contain legally protected and confidential healthinformation intended only for the use of the individual or entity namedabove. If you are not the intended recipi ent, you are hereby notifiedthatany disclosure, copying, distribution, or other use of these documents isstrictly prohibited. If you have received this information in error,pleasenotify the sender heather guidry and arrange for the return or destructionofthese documents. Dictated on 03/05/12 1322 by Chris Alonso MDranscribed on 03/05/12 1458 by ITS IMPORTSign by Michael Alonso MD on 1457 Sign by: Michael Alonso MD :26 CBCEM Comments: This patient requested that [facility] [employer] send to you acopy of [...] 7-18 GLU 80 mg/dL (Normal) Range: 70-110 58-Eqt-21974:26 DC GIANT PLATELETS (Normal) Comments: This patient requested that [facility] [employer] send to you acopy of their Yearly Employee Health Risk Assessment.A copy of this report is also given to the patient so theycan follow up with your office if they choose. :26 EMP Comments: This patient requested that [facility] [employer] send to you acopy of their Yearly [...] Very High > or = 500 mg/dL 51-Vjp-11890:26 UAEM Comments: This patient requested that [facility] [employer] send to you acopy of [...] (Normal) UCLAR CLEAR (Normal) UCOL YELLOW (Normal) 46-Zmt-010172:01 VITD 45.5 ng/mL (Normal) Range: 30.0-100.0 Comments: Vitamin D deficiency has been defined by the [place] ofMedicine and an Endocrine Society practice guideline as alevel of serum 25-OH vitamin D less than 20 ng/mL (1,2).The Endocrine Society went on to further define vitamin Dinsufficiency as a level between 21 and 29 ng/mL (2).1. IOM ([place] of Medicine). 2010. Dietary reference intakes for calcium and D. [place]: The National Academies Press.2. Paxton MF, Rojelio [place], Cortney GARIBAY, et al. Evaluation, treatment, and prevention of vitamin D deficiency: an Endocrine Society clinical practice guideline. JCEM. 2010; 96(7): 1911-30.Performed at: [address] [id number] Director: Korin Harris MD, Phone: [phone] 88-Tuj-550375:34 HEPATOBILIARY IMAGING Radiology Report See Note (Normal) [...] radiologist regarding this report, please call our 82D8aapbgnk line @ Dictated on 05/31/1118 by Ehsan Vázquez DOTranscribed on 05/31/112030 by ITS IMPORTSign by Ehsan Vázquez DO on 05/31/112031 Sign by: Ehsan Vázquez DO 41-Vvd-676728:54 TOE(S),MIN 2 VIEWS Radiology Report See Note [...] regarding this rep ort, please call our 52I1akyduhl line @ Dictated on 05/30/11 1150 by [...] 7-18 GLU 76 mg/dL (Normal) Range: 70-110 61-Woi-825395:02 TROPONIN-I < 0.02 ng/mL (Normal) Comments: TROPONIN-I EXPECTED VALUES <0.05 NEGATIVE 0.06 - 0.59 AT RISK OF NC > OR = 0.60 SUGGEST NC :11 ANKLE,MIN 3 VIEWS Radiology Report See [...] PATIENT NOT FASTINGPERFORMED BY: [facility] HospitalEwoyll4724 [facility] [id number] COUNT) (27733) Result 1 NG36 (Normal) Comments: No growth in 36 - 48 hours. Urine Culture,Comprehensive Final report (Normal) :07 Urinalysis, Office (55403) UA - BILIRUBIN Negative (Normal) UA - [...] CHOL 150 mg/dL (Normal) Comments: <200 mg/dL Cutvizjfm302-144 mg/dL Borderline>240 mg/dL High Risk HDL 56 [...] CHOL 150 mg/dL (Normal) Comments: <200 mg/dL Pzxyhvhis020-192 mg/dL Borderline>240 mg/dL High Risk LDH 160 [...] (Normal) Comments: Result: NEGATIVE COLOR YELLOW (Normal) 19-Fnu-910935:10 BILAT [facility] DIGITAL & CAD Radiology See Note Comments: Exam Number: [id number] MAMMOGRAPHY - BILATERAL SCREENING INDICATION:Routine annual screening [...] not delay biopsy of a clinicallysuspicious abnormality.ADDENDUM: [id number] BI/MDS MAMMOGRAPHY - BILATERAL SCREENING INDICATION:Routine annua [...] attach ing a ResultCode to this exam.ADDENDUM: [id number] HPBI/MDS Reported By: GISSELLE GONZALES M.D. 29-Bil-457010:09 DEXA BONE DENSITY STUDY (HP) Radiology Report See Note Comments: Exam Number: [id number] CLINICAL:The patient is a 69-year-old female who is postmenopausal with pasthistory of hormone replacement therapy. History of fracture of U0wqpojf history of osteoporosis EXAMINA (Normal) TION:DUAL ENERGY X-RAY ABSORPTIOMETRY / DEXA. TECHNIQUE:Bone Density Measurements (BMD) of lumbar spine and bilateral hipswere obtained using a [employer] scanner. COMPARISON:March 24 999, October 29, 2002, [...] NIH Osteoporosis and Related Bone Diseases http://www.osteo.[email or web address]. [employer] atamerican healthcare systems Society for Clinical Densitometryhttp://www.iscd.org3. National Osteoporosis Foundation http://www.nof.org Reported By: GISSELLE GONZALES M.D. 24-Dec-19 VIT D,25 01679 39.0 ng/mL Range: 32.0-100.0 1012:08 (Normal) Comments: Recent studies consider the lower limit of 32.0 ng/mL to isabel threshold for optimal health.Sheng BW. J Nutr. 2004;135(2):317- 22.Performed at: [place] [address]Lab Director: Korin Harris MD, Phone: [phone] 29-Oct-19 C DIF TOXIN/AG See Note Comments: C. DIFF ANTIGENS NEGATIVE 105:40 (Normal) 85-Wks-42700:40 CUL STOOL/SHIG SHIGA-TOXIN See Note (Normal) Comments: [...] Crytosporidium parvum,Cyclospora, or Microsporidia.__ TESTING PERFORMED AT [facility]. ORIGINAL REPORT ONFILE IN LAB CONTAINS ADDITIONAL TEST SITE INFORMATION. OVA/ PARASITES EXAM NO OVA, CYSTS, OR PARASITES FOUND. 46-Snp-62332:40 WBC,STOOL See Note (Normal) Comments: FECAL WBCs NONE SEEN 54-Zsg-341342:25 ABDOMEN/PELVIS WITH CONTRAST Radiology Report See Note (Normal) Comments: Exam Number: [id number] CLINICAL:This is a 68-year-old female patient with [...] T PROT 7.7 g/dL (Normal) Range: 6.4-8.2 71-Aqi-44549:56 COMPLETE UA BACTERIA RARE {/hpf} (Normal) LEUK [...] 1000-10,000 ORGANISM 1: MIXED GRAM POSITIVE ORGANISMS 27-Ziz-26627:56 ESR SED RATE 48 mm/h (Abnormal) Range: 0-30 10-Ycj-020913:55 URINE ALEX CULTURE (JASMINE Comments: PATIENT NOT FASTINGPERFORMED BY: [facility] Zrbgcc2800 [facility] [id number] Information: SRC:UR [id number] COL COUNT) (85967) Result 1 NG36 (Normal) Comments: No growth in 36 - 48 hours. Urine Culture,Comprehensive Final report (Normal) 02-Ujh-594551:20 Urinalysis, Office (68260) UA - LEUKOCYTE ESTERASE Small (Normal) UA - NITRITE Negative (Normal) URINE UROBILINGN JASMINE TIMED 2 mg/dL (Normal) UA - PROTEIN Negative mg/dL (Normal) UA - PH 7.0 (Normal) UA - BLOOD Hemolyzed Trace (Normal) UA - SPECIFIC GRAVITY 1.015 (Normal) UA - KETONES Negative mg/dL (Normal) UA - BILIRUBIN Negative (Normal) UA - GLUCOSE Negative (Normal) 31-Wyn-62917:11 BREAST UNILATERAL US () Radiology Report See Note (Normal) Comments: Exam Number: [id number] CLINICAL:The patient is a 68-year-old female with [...] CHOL 147 mg/dL (Normal) Comments: <200 mg/dL Vqzxyupvk189-572 mg/dL Borderline>240 mg/dL High Risk :03 LIVER ALB 4.2 g/dL (Normal) Range: 3.4-5.0 ALK P 66 U/L (Normal) Range: 50-136 ALT 29 U/L (Normal) Range: 12-78 AST 20 U/L (Normal) Range: 15-37 D BILI 0.09 mg/dL (Normal) Range: 0.00-0.30 T BILI 0.30 mg/dL (Normal) Range: 0.00-1.00 T PROT 7.9 g/dL (Normal) Range: 6.4-8.2 71-Mbb-446744:41 Urinalysis, Office (02613) UA - LEUKOCYTE ESTERASE Trace (Normal) UA [...] Report See Note (Normal) Comments: Exam Number: [id number] CLINICAL: 68-year-old female with knee pain lateral [...] a 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 Reported By: John Alcocer M.D. 3-Uki-634138:24 KNEE,4 OR MORE VIEWS (MT) Radiology Report See Note (Normal) Comments: Exam Number: [id number] CLINICAL:Pain X-RAY EXAMINATION RIGHT KNEE TECHNIQUE:4 view(s) [...] change. Osteopenia. Reported By: ARIADNA PERAZA M.D. 5-Bbm-792508:23 L/S SPINE,MIN 4 VIEWS (MT) Radiology Report See Note (Normal) Comments: Exam Number: [id number] CLINICAL:Low back pain, radiculopathy X-RAY EXAMINATION: LUMBAR [...] acute fracture. Reported By: ARIADNA PERAZA M.D. 8-Wkw-364575:00 EMP URINALYSIS BILIRUBIN URINE SeeNote (Normal) Comments: [...] Range: 0.2 - 1.0 COLOR YELLOW (Normal) 6-Gej-712527:00 ROUTINE UA BILIRUBIN URINE SeeNote (Normal) Comments: [...] Report See Note (Normal) Comments: Exam Number: [id number] BONE DENSITOMETRY HISTORYOsteopenia. TECHNIQUE Bone densitometry of the lumbar spine and both hips is now beingperformed. The best criteria for evaluation of osteoporosis is theT-value, which represents the comparison of the patient's bone mass liegh expected peak bone mass. For most patients, the mean T-value of L7trnseqp L4 is used to evaluate the lumbar [...] density is measured at 7.2% less than pe6850.The T-valu e of the right femoral neck is -2 which is in the range ofosteopenia.The T- value of the total right hip is -1.7 which is in the range ofosteopenia. IMPRESSIONThere is osteopenia of the lumbar spine and both hips. Reported By: GISSELLE GONZALES M.D. :54 BREAST UNILATERAL US () Radiology Report See Note (Normal) Comments: Exam Number: [id number] TARGETED LEFT BREAST ULTRASOUND HISTORYAbnormal mammogram. High-resolution [...] Greene's office and the office was called oo3269 hours December 22, 2008. Reported By: GISSELLE GONZALES M.D. 99-Rsw-267543:35 UNILAT DIAG DIGITAL & CAD Radiology Report See Note (Normal) Comments: Exam Number: [id number] MAMMOGRAM, UNILATERAL LEFT DIAGNOSTIC DIGITAL AND CAD [...] 1992 (MQSA). The mammograms werealso examined w [facility] computer-aided detection software (ImageSynthelis, Spreaker, Currensee.). Reported By: GISSELLE GONZALES M.D. 63-Uor-168335:30 [facility] DIGITAL & CAD Radiology Report See Note (Normal) Comments: Exam Number: [id number] MAMMOGRAM, BILATERAL SCREENING DIGITAL AND CAD HISTORYRoutine [...] mammograms werealso examined with computer-aided detection software (Click Quote Save.). Reported By: GISSELLE GONZALES M.D. 52-Syx-227397:37 BMP BUN 15 mg/dL (Normal) Range: 7-18 [...] g/dL (Normal) Range: 6.4-8.2 :11 AT3 F/I 86207 AT3 AG, IMMUNOL 131 % (Abnormal) Range: 75-130 AT3 FUNCT 29367 131 % (Normal) Range: 75-135 :11 PROT C 438993 PROT C,[id number] 169 % (Abnormal) Range: 74-151 Comments: Performed At: [address] [id number] PROTEIN C [address] 106 % (Normal) Range: 70-140 :11 PROT S 800924 PROTEIN S, FREE 107 % (Normal) Range: 56-124 PROTEIN S, FUNC 82 % (Normal) Range: 60-145 PROTEIN S,TOTAL 137 % (Normal) Range: 58-150 :38 A-CARDIO 276443 Comments: ORDER ALSO STATES ANTIPHOSPHOLIPIDS, WHICH IS [...] mm/h (Normal) Range: 0-30 :38 FAC II [id number] Comments: ORDER ALSO STATES ANTIPHOSPHOLIPIDS, WHICH IS A SYNONYM OFANTICARDIOLIPIN FACTOR II,DNA Comment (Normal) Comments: NEGATIVENo mutation identified.Comment:A point mutation (H84833L) in the Factor II (prothrombin)gene is the [...] antithrombinIII, protein C and protein S. :38 FAC 292419 Comments: ORDER ALSO STATES ANTIPHOSPHOLIPIDS, WHICH IS [...] , elevatedhomocysteine levels, or a Factor II/prothrombin mutation(G22760B). Contact you r local [facility] for information [...] Range: 0.2 - 1.0 :48 Urinalysis, Office (42710) UA - BILIRUBIN Negative (Normal) UA - BLOOD Negative (Normal) UA - GLUCOSE Negative (Normal) UA - KETONES Negative mg/dL (Normal) UA - LEUKOCYTE ESTERASE Trace (Normal) UA - NITRITE Negative (Normal) UA - PH 6.5 (Normal) UA - PROTEIN Negative mg/dL (Normal) UA - SPECIFIC GRAVITY 1.005 (Normal) URINE UROBILINGN JASMINE TIMED 2 mg/dL (Normal) 0-Dlt-309843:04 BILAT SCRN DIGITAL & CAD Radiology Report See Note (Normal) Comments: Exam Number: [id number] MAMMOGRAM, BILATERAL SCREENING DIGITAL AND CAD HISTORYRoutine [...] werea lso examined with computer-aided detection software (Click Quote Save.). Reported By: GISSELLE GONZALES M.D. 3-Yci-816530:41 DEXA BONE DENSITY STUDY (HP) Radiology Report See Note (Normal) Comments: Exam Number: [id number] BONE DENSITOMETRY HISTORYOsteopenia. TECHNIQUE Bone densitometry of [...] density is measured at 0.2% less than zs4883 and 0.1% more than in 2006. IMPRESSIONThere [...] (Normal) Range: 1.8-6.7 Comments: Performed At: [address] [id number] VMA,UR 3.4 mg/L (Normal) :16 ALDOST,U24 4291 Comments: 24 H URINE TV = 2580 ML ALDOSTERONE,U24 3 {ug/24_hr} (Normal) Range: 2-21 Comments: 1 mo. 1 - 11 1- 12 mos. 1 - 22 1- 16 yrs. 2 - 16 Adult Ranges Normal diet 2 - 21 Low salt 17 - 44 High salt 0 - 14Performed At: [address] [id number] ALDOSTERONE,UR 1 ug/L (Normal) 12-Vip-068912:17 BRAIN/HEAD W/WO CONTRAST Radiology Report See Note (Normal) Comments: Exam Number: [id number] CT SCAN OF BRAIN HISTORYHeadache. Scans were [...] ethmoid sinusitis. Reported By: GISSELLE GONZALES M.D. 87-Qto-05999:51 CBC With Differential/Platelet Comments: PERFORMED BY: [facility]ia[facility] [id number] Baso (Absolute) 0.1 {x10E3/uL} (Normal) Range: 0.0-0.2 [...] Comp. Metabolic Panel (14) Comments: PERFORMED BY: [facility] [facility] [id number] A/G Ratio 1.5 (Normal) Range: 1.1-2.5 Albumin, [...] Sedimentation 4 mm/h (Normal) Comments: PERFORMED BY: [facility] [id number] :51 Rate-Westergren Range: 0-30 0-Wwr-102352:29 CULTURE, URINE URINE CULTURE See Note {CFU/mL} (Normal) Comments: COLONY COUNT >100,000 ORGANISM 1: ENTEROCOCCUS FAECALIS ENTEROCOCCUS FAECALIS: REACTION CIPROFLOXACIN GP $$$ <=0.5 S LEVOFLOXAC IN $$ <=1 S NITROFURANTOIN $ <=32 S PENICILLIN G (ENTEROCOCCUS) $$ 2 S TETRACYCLINE $$ <=1 S VANCOMYCIN $$ <=0.5 S 6-Bcc-871463:29 ROUTINE UA BILIRUBIN URINE SeeNote (Normal) Comments: [...] Care Name Dates Details Instructions Non-smoker : Follow up if no improvement [...] EASY BRUISABILITY OF SKIN Planned Observations TSH (07233)Indication: Hypercholesterolemia On: 12-Akv-936302:51 Request URINALYSIS, W/ MICRO (24136)Indication: Essential hypertension On: :51 Request MICROALBUMIN: CREATININE RATIO (51243) AND (12208)Indication: Essential hypertension On: :51 Request METABOLIC PANEL, COMPREHENSIVE (71733)Indication: Essential hypertension On: :51 Request LIPID PANEL (73858)Indication: Essential hypertension On: :51 Request CBC W/AUTO DIFF WBC (03171)Indication: Essential hypertension On: : Request Metabolic Panel, Basic (86355)Indication: Essential hypertension On: 98-Jcf-379951:32 Request Comments: 2 weeks Vitamin D Hydroxy (04412)Indication: Osteopenia On: :23 Request URINALYSIS, W/ MICRO (70538)Indication: Essential hypertension On: : Request CBC W/AUTO DIFF WBC (52438)Indication: Essential hypertension On: :23 Request METABOLIC PANEL, COMPREHENSIVE (83638)Indication: Essential hypertension On: :23 Request LIPID PANEL (48950)Indication: Hypercholesterolemia On: :22 Request SED RATE ERYTHROCYTE (64454)Indication: Abdominal pain, acute, generalized On: :47 Request C-REACTIVE PROTEIN (73658)Indication: Abdominal pain, acute, generalized On: 72-Pke-974913:47 Request CBC with auto diff (45030)Indication: Abdominal pain, acute, generalized On: :46 Request URINALYSIS, W/ MICRO (10064)Indication: Essential hypertension On: :27 Request LIPID PANEL (60587)Indication: Hypercholesterolemia On: :27 Request METABOLIC PANEL, COMPREHENSIVE (88427)Indication: Essential hypertension On: 3-Noc-974935:26 Request VARICELLA-ZOSTER ANTBODY (49024)Indication: Hypercholesterolemia On: 60-Clu-651231:58 Request TSH (12192)Indication: Anxiety associated with depression On: 90-Czb-128945:12 Request LIPID PANEL (31454)Indication: Hypercholesterolemia On: 97-Rtk-004002:12 Request CBC W/AUTO DIFF WBC (65391)Indication: Essential hypertension On: :12 Request METABOLIC PANEL, COMPREHENSIVE (68920)Indication: Essential hypertension On: 68-Sbp-193250:12 Request VARICELLA-ZOSTER ANTBODY (32677)Indication: screen On: 37-Nao-438404:59 Request CBC WITH MANUAL DIFF (02891)Indication: Essential hypertension On: 17-Jsn-194410:59 Request LIPID PANEL (68004)Indication: Hypercholesterolemia On: :58 Request METABOLIC PANEL, COMPREHENSIVE (41891)Indication: Essential hypertension On: :58 Request Vitamin D Hydroxy (19561)Indication: Osteopenia On: :33 Request METABOLIC PANEL, COMPREHENSIVE (12994)Indication: Essential hypertension On: :33 Request LIPID PANEL (39416)Indication: Hypercholesterolemia On: :33 Request METABOLIC PANEL, COMPREHENSIVE (49275)Indication: Essential hypertension On: :57 Request LIPID PANEL (78028)Indication: Hypercholesterolemia On: :56 Request Vitamin D Hydroxy (97916)Indication: Anxiety associated with depression On: :51 Request CBC WITH MANUAL DIFF (89606)Indication: Essential hypertension On: :51 Request METABOLIC PANEL, COMPREHENSIVE (72692)Indication: Essential hypertension On: :51 Request TSH (09098)Indication: Anxiety associated with depression On: 30-Sgx-842317:51 Request LIPID PANEL (23187)Indication: Hypercholesterolemia On: :50 Request CBC WITH MANUAL DIFF (35297)Indication: Essential hypertension On: :30 Request METABOLIC PANEL, COMPREHENSIVE (37180)Indication: Essential hypertension On: :25 Request LIPID PANEL (93294)Indication: Hypercholesterolemia On: :25 Request URINALYSIS, W/ MICRO (12507)Indication: Essential hypertension On: :08 Request CBC WITH MANUAL DIFF (25055)Indication: Essential hypertension On: :08 Request METABOLIC PANEL, COMPREHENSIVE (80776)Indication: Essential hypertension On: :06 Request LIPID PANEL (74571)Indication: Hypercholesterolemia On: :06 Request LIPID PANEL (32481)Indication: Hypercholesterolemia On: :28 Request CBC WITH MANUAL DIFF (20667)Indication: Essential hypertension On: :28 Request METABOLIC PANEL, COMPREHENSIVE (18306)Indication: Essential hypertension On: :28 Request METABOLIC PANEL, COMPREHENSIVE (83723)Indication: Essential hypertension On: :48 Request Vitamin D Hydroxy (91667)Indication: Depression On: :48 Request LIPID PANEL (05077)Indication: Hypercholesterolemia On: :47 Request CBC WITH MANUAL DIFF (02937)Indication: Other chest pain On: 13-Bzy-478392:19 Request METABOLIC PANEL, COMPREHENSIVE (95568)Indication: Other chest pain On: :18 Request ASSAY, TROPONIN, QUANTITATIVE (aka Troponin I) (67843)Indication: Other chest pain On: 59-Zzf-360452:18 Request Comments: stat CALCIFEDIOL (55375)Indication: Eczema (Renamed from Dermatitis, eczematoid) On: 71-Yur-463582:34 Request OVA & PARASITE DIR SMEAR (45282)Indication: Diarrhea (Renamed from D (diarrhea)) On: 77-Kws-154570:11 Request LEUKOCYTE COUNT, FECAL (93162)Indication: Diarrhea (Renamed from D (diarrhea)) On: 09-Ekv-863180:10 Request C.Difficile, Stool (19053)Indication: Diarrhea (Renamed from D (diarrhea)) On: 20-Abh-603105:10 Request ALEX CULTURE-STOOL (09700)Indication: Diarrhea (Renamed from D (diarrhea)) On: 87-Ini-140752:10 Request SED RATE ERYTHROCYTE (38457)Indication: Abdominal pain, acute, left lower quadrant On: 65-Wws-118887:10 Request C-REACTIVE PROTEIN (79346)Indication: Abdominal pain, acute, left lower quadrant On: 79-Fle-887775:10 Request URINALYSIS, W/ MICRO (72588)Indication: Abdominal pain, acute, left lower quadrant On: 51-Myp-069368:10 Request METABOLIC PANEL, COMPREHENSIVE (41977)Indication: Abdominal pain, acute, left lower quadrant On: 76-Liw-183262:10 Request CBC WITH MANUAL DIFF (88797)Indication: Abdominal pain, acute, left lower quadrant On: 10-Sov-593440:10 Request METABOLIC PANEL, COMPREHENSIVE (38631)Indication: Essential hypertension On: 12-Yya-321932:47 Request HEPATIC FUNCTION PANEL (42984)Indication: Hypercholesterolemia On: :47 Request LIPID PANEL (42852)Indication: Hypercholesterolemia On: 92-Ite-021844:47 Request Vitamin D Hydroxy (21895)Indication: Osteopenia On: 73-Nsl-824046:46 Request LIPID PANEL (68635)Indication: Hypercholesterolemia On: :38 Request HEPATIC FUNCTION PANEL (40376)Indication: Hypercholesterolemia On: :38 Request Metabolic Panel, Basic (45616)Indication: DISORDERS, ORGANIC, SLEEP RELATED LEG CRAMPS On: :17 Request URINALYSIS W/O MICRO (43486)Indication: Essential hypertension On: :48 Request TSH (98626)Indication: Essential hypertension On: :48 Request METABOLIC PANEL, COMPREHENSIVE (24225)Indication: Essential hypertension On: :48 Request CBC WITH MANUAL DIFF (31926)Indication: Essential hypertension On: :48 Request LIPID PANEL (04779)Indication: Hypercholesterolemia On: :48 Request CBC WITH MANUAL DIFF (37864)Indication: Anemia, unspecified On: :51 Request LIPID PANEL (35687)Indication: Hypercholesterolemia On: :31 Request HEPATIC FUNCTION PANEL (65551)Indication: Hypercholesterolemia On: :41 Request LIPID PANEL (47564)Indication: Hypercholesterolemia On: :41 Request SED RATE ERYTHROCYTE (08380)Indication: Headache (Renamed from Cephalalgia) On: :40 Request METABOLIC PANEL, COMPREHENSIVE (86844)Indication: Headache (Renamed from Cephalalgia) On: :39 Request CBC WITH MANUAL DIFF (92189)Indication: Headache (Renamed from Cephalalgia) On: :39 Request CBC WITH MANUAL DIFF (52038)Indication: EASY BRUISABILITY OF SKIN On: :59 Request PTT (ACTIVATED PARTIAL THROMBOPLASTIN TIME) (87662)Indication: EASY BRUISABILITY OF SKIN On: :59 Request PT (PROTHROMBIN TIME) (88974)Indication: EASY BRUISABILITY OF SKIN On: :59 Request HEPATIC FUNCTION PANEL (91930)Indication: Hypercholesterolemia On: :54 Request LIPID PANEL (35068)Indication: Hypercholesterolemia On: :54 Request Planned Encounters Medical; 4 Month FU - On: 15-Apr-2018 9:45 [facility] Catrina Perry DO, DO, Kathleen Planned Procedures Flu Vaccine (Quadrivalent) On: 13-Mar-2018 Intent 19717Ze: Ladi Max Comments: Lot #[id number]-L dltd, IMDose prefilled syringegiven by:SABINA Mclain reviewed and ABN signed FLAT PLATE (35709)By: Jovana On: 19-Dec-2017 Intent Acacia OJEDA ELECTROCARDIOGRAM, COMPLETE On: 12-Dec-2017 Intent (ECG) (64841)By: Vicky BROUSSARD, Comments: nsr no acute chg Catrina Kang DO Bone Density StudyBy: Jc BROUSSARD, On: 10-May-2015 Intent Tessie Soler Comments: screening ADMINISTRATION OF INFLUENZA On: 05-Feb-2015 Intent VIRUS VACCINE (G0008)By: Tessie Greene DO Flu Vaccine (Quadrivalent) On: 05-Feb-2015 Intent 01593No: Tessie Greene DO Comments: Lot:[id number]:09/01/15Dose:0.5mLRoute:IMSite:L DltdGiven By:MARTY signed MAMMOGRAM, SCREENING, BOTH On: 05-Feb-2015 Intent BREAST (33976)By: Jc BROUSSARD, Comments: reilly Soler DEXA SCAN AXIAL SKELETON On: 05-Feb-2015 Intent (39008)By: Tessie Greene DO Comments: nov Solu -Medrol Injection, 125 mg On: 09-Dec-2014 Intent (J2930)By: Acacia Whaley CNP Comments: lot:[id number]:route:IMdose:125MGsite: R glutGiven by: ROSANGELA Gamble MAMMOGRAM, SCREENING, BOTH On: 13-Mar-2014 Intent BREAST (61917)By: Tessie Greene DO ADMINISTRATION OF INFLUENZA On: 13-Mar-2014 Intent VIRUS VACCINE (G0008)By: Tessie Greene DO FLU VAC, SPLIT, >3 YEARS, On: 13-Mar-2014 Intent INTRAMUSC (73783)By: Jc BROUSSARD, Comments: lot: [id number]: 12-01-13site/route: L del/IMamt: 0.5mLVIS signed when applicableROSANGELA Villa Tessie A Eprescribed prescriptions On: 16-Sep-2013 Intent (G8553)By: Tessie Greene DO Eprescribed prescriptions On: 18-Mar-2013 Intent (G8553)By: Libby Herndon FLU VAC, SPLIT, >3 YEARS, On: 20-Feb-2013 Intent INTRAMUSC (75947)By: Dillon, Comments: Lot:[id number]:Dose:0.5mLRoute:IMSite:L DltdGiven By:MARTY signed Fallon IMMUNIZ ADMNIN, 1 VAC, On: 20-Feb-2013 Intent SNGL/COMBO (76830)By: Fallon Carranza MAMMOGRAM, SCREENING, BOTH On: 31-Dec-2012 Intent BREASTS (94670)By: Tessie Greene DO Eprescribed prescriptions On: 11-Nov-2012 Intent (G8553)By: Libby Herndon Eprescribed prescriptions On: 23-Sep-2012 Intent (G8553)By: Libby Herndon EKG (82853)By: Yanick, On: 21-Aug-2012 Intent Libby Comments: ekg showed normal sinus rhythym, normal axis, no acute st/t wave changes Eprescribed prescriptions On: 25-Jun-2012 Intent (G8553)By: Tanya Bermudez LPN PNEUM VAC ADLT/IMUMNOSPR, On: 03-May-2012 Intent SBC/INTRM (65388)By: Jc BROUSSARD, Comments: Lot:[id number]:08-06-13Dose:0.5mLRoute:IMSite:L armGiven By:AGA Soler ADMINISTRATION OF PNEUMOCOCCAL On: 03-May-2012 Intent VACCINE (G0009)By: Tessie Greene DO Eprescribed prescriptions On: 03-May-2012 Intent (G8553)By: Libby Herndon Wxzffhugq-Anz-Xjwng (68033)By: On: 08-Apr-2012 Intent Acacia Whaley CNP DXA, BONE DENSITY, AXIAL On: 30-Jan-2012 Intent SKELETON (52472)By: Tessie Greene DO MAMMOGRAM, SCREENING, BOTH On: 30-Jan-2012 Intent BREASTS (21733)By: Tessie Greene DO IMMUNIZ ADMNIN, 1 VAC, On: 30-Jan-2012 Intent SNGL/COMBO (86779)By: Alan SEVILLA, Comments: Lot/Exp: [id number], 11/2011Given in L Dltd, IMPrefilled SyringeBy Megan FIRE RANGER Emgan L FLU VAC, SPLIT, >3 YEARS, On: 30-Jan-2012 Intent INTRAMUSC (88973)By: Megan Phillips LPN Breast Screening - BilateralBy: On: 30-Jan-2012 Intent Tessie Greene DO Eprescribed prescriptions On: 11-Jul-2011 Intent (G8553)By: Acacia Whaley CNP Radiology - Toe(s) - LeftBy: On: 30-May-2011 Intent Tessie Greene DO Nuclear Medicine - HIDA On: 05-May-2011 Intent w/CPKBy: Tessie Greene DO Ultrasound - GallbladderBy: On: 01-May-2011 Intent Tessie Greene DO Comments: please do tomorrow Cartoid DopplerBy: Jc BROUSSARD, On: 01-May-2011 Intent Tessie Soler EKG (86279)By: Yanick, On: 01-May-2011 Intent Libby Comments: ekg showed normal sinus rhythym, normal axis, no acute st/t wave changes poor r wave progression unchanged TDAP VACCINE >7 IM (81309)By: On: 01-May-2011 Intent Libby Herndon Comments: work FLU VAC, SPLIT, >3 YEARS, On: 01-May-2011 Intent INTRAMUSC (11957)By: Yanick, Comments: work Libby DXA, BONE DENSITY, AXIAL On: 09-Feb-2011 Intent SKELETON (00939)By: Monserrat Granado LPN MAMMOGRAM, SCREENING, BOTH On: 09-Feb-2011 Intent BREASTS (43704)By: Monserrat Granado LPN Radiology - Ankle - LeftBy: On: 14-Dec-2010 Intent Jovana OJEDA, Acacia Wang Comments: call wet read to Acacia Whaley Eprescribed prescriptions On: 15-Nov-2010 Intent (G8553)By: Tessie Greene DO CT - Abdomen & PelvisBy: Fast On: 26-Oct-2009 Intent DO Tessie A Comments: tomorrow call wet read EKG (08061)By: Yanick, On: 30-Aug-2009 Intent Libby Comments: do at hospital Venous Doppler - RightBy: Fast On: 03-Feb-2009 Intent DO Tessie A Comments: tomorrow- call wet read Radiology - Lumbar SpineBy: On: 03-Feb-2009 Intent Tessie Greene DO Radiology - Knee - Right - On: 03-Feb-2009 Intent Weight BearingBy: Tessie Greene DO Doppler Ultrasound OtherBy: On: 18-Sep-2008 Intent Vicky DO, Catrina Vicky DO, Comments: lower extrem Catrina Stress EchocardiogramBy: Fast On: 07-Jun-2007 Intent Tessie BROUSSARD EKG (14063)By: Tessie Greene DO On: 28-Apr-2007 Intent A Comments: ordered to be done at the hospital CT - Brain/HeadBy: Fast DO, On: 20-Mar-2007 Intent Tessie A Comments: with and without contrast- please do stat and call wet read IMMUNIZ ADMNIN, 1 VAC, On: 04-Apr-2006 Intent SNGL/COMBO (48086)By: Libby Herndon PNEUM VAC ADLT/IMUMNOSPR, On: 04-Apr-2006 Intent SBC/INTRM (89735)By: Yanick, Comments: Lot #:Expiration date:Amount given:Route: IMSite given:LEFT DELTOIDGiven by: EDILMA Weinberg IMMUNIZ ADMNIN, 1 VAC, On: 04-Apr-2006 Intent SNGL/COMBO (84922)By: Tessie Greene DO PNEUM VAC ADLT/IMUMNOSPR, On: 04-Apr-2006 Intent SBC/INTRM (15059)By: Tessie Greene DO Planned Medications INJECTION, METHYLPREDNISOLONE SODIUM SUCCINATE, UP TO 125 MG Ordered: 09-Dec-2014 Pending Acacia Whaley CNP Instructions Name Dates Details Abdominal pain : How to access health [...] online - Detail Indication: Poison casandra Poison casadnra : Patient Instructions Indication: Poison casandra Hypercholesterolemia [...] Indication: Essential hypertension Encounters Office Visit On: 13-Mar-2018 10:35 Encounter Diagnosis: [...] The patient does have durable power of medicine technologist and living will. The patient has noticed [...] The patient does have durable power of medicine technologist and living will. The patient has noticed nothing from the geriatic depre ssion scale. Other providers contributing to the patient's care are other: (hearing and eye dr- Dr herrera and Dr. Zamora). Note for Annual Medicare Exam: NO labwork done for today and pt had her well woman exam done with [facility].-weight down trying - her bp up little [...] effective than benicar- she said mood in located within [facility] is reasonable- doesnt want to [...] to get back on track and joining [employer] [facility] [employer]- her mood is pretty good and brother [...] is having hearing issues and has appt agnieszkagiselle barlow needs referral- back is feeling better- [...] with welbutrin more energy and seeing the lumber puller-- no issues withthe crestor- wever since cortison [...] got shot of cortisone since then o gretchentil now- this is differnet- pain back of [...] ,osteoarthritis ,osteoporosis/osteopenia and other (anxiety, anemia). N johannye for Follow up for chronic medical issues: her brother in [place] [facility] [facility] and got a pressure [...] Follow up, Laboratory Test Results - Date: (10/16/08- in df's recieved documents from Dr. Nichole at [facility]). Note for Follow up, [...] in the past ,difficulty sleeping ,drug abuse ,free lance model awakening ,episodes of spontaneous crying ,e xcessive [...]
--- OUTSIDE RECORDS SUMMARY | 2018-08-24 15:55 | XMS RPT_ITS | Continuity of Care Document ---
:1940 External Reference #:[id number] Author Organization [facility] Address [address] [place] [address] Phone Care Team Providers Name Role Phone Catrina Perry DO Unavailable Ricardo Rollins MD Unavailable Dr. Addison Kimball Unavailable Poly Bunn Unavailable Duke PLASCENCIA, Dr. Janes Dougherty Unavailable Winter, Ladi Unavailable Unavailable Sadia Goel Unavailable Unavailable Libby Herndon Unavailable Unavailable Fallon Carranza Unavailable Unavailable Phlebotomy Program Coordinator, System Unavailable Unavailable Carolin Garber LPN [...] 1 qd (20 MG) Active CITRACAL MAXIMUM, [id number] (Oral Tablet) 1 tab bid (315-250 MG-UNIT) [...] for 0 days Refills: 0 Ordered:31-Dec-2017 Slarb DIE DESIGNER, AngelaActive Omeprazole 20 MG Oral Capsule [...] Name Dates Details Bactrim *ANTI-INFECTIVE AGENTS - [facility] [place] Status: Active (Allergy) Comments: [...] WITH Contrast Result: Comments: See Note; NOTES: [facility] Imaging Services [address] [place] [address] Soft Tissue Neck WITH Contrast MR#: [id number] Acct: [id number] Name: HERMAN LEONARD Rep #: [id number] : 1940 F 77 From: Michael Alonso MD PCP: Catrina Perry DO Status: REG CLI Study: Soft Tissue Neck WITH Contrast Date of Exam: 04/10/18 Exam# [id number] Ordering Dr: Acacia Whaley STUDY: CT SOFT [...] FINDINGS: Normal bilateral parotid glands. Normal bilateral boiling off winder spaces. Normal bilateral parapharyngeal spaces. Normal [...] Alonso MD 04/10 at 15:37 EST Tel [phone], Service support , CC: Acacia hWaley NP; Catrina Perry DO Process Development Technician: Signed 10-Apr-2018 Soft Tissue Neck WITH Contrast Result: Comments: See Note; NOTES: [facility] Imaging Services [address] [place] [address] Soft Tissue Neck WITH Contrast MR#: [id number] Acct: [id number] Name: HERMAN LEONARD Rep #: [id number] : 1940 F 77 From: Michael Alonso MD PCP: Catrina Perry DO Status: REG CLI Study: Soft Tissue Neck WITH Contrast Date of Exam: 04/10/18 Exam# [id number] Ordering Dr: Acacia Whaley P-C ADDENDUM by [...] Michael Alonso MD at 8:47 EST Tel [phone], Service support , 04/11/18 0847 Date cc : Acacia Whaley NP; Catrina Perry DO * Signed ADDENDUM by Michael Alonso MD on 04/11/[address]/Soft Tissue Neck WITH Contrast 04/11/18 0854 Date cc: Acacia Arenasmikayla SCIENTIFIC RESEARCH MANAGER; Catrina Perry DO * Signed STUDY: CT [...] FINDINGS: Normal bilateral parotid glands. Normal bilateral boiling off winder spaces. Normal bilateral parapharyngeal spaces. Normal [...] Michael Alonso MD at 15:37 EST Tel [phone], Service support , CC: Acacia Whaley NP; Catrina Perry DO Process Development Technician: Signed 09-Apr-2018 Thyroid Result: Comments: See Note; NOTES: [facility] Imaging Services [address] [place] [address] Thyroid MR#: [id number] Acct: [id number] Name: HERMAN LEONARD Rep #: [id number] : [birth year] F 77 From: Michael Alonso MD PCP: Catrina Perry DO Status: REG CLI Study: Thyroid Date of Exam: 04/09/18 Exam# [id number] Ordering Dr: Acacia Whaley SCIENTIFIC RESEARCH MANAGER-C STUDY: THYROID ULTRASOUND REASON FOR EX AM: [...] Alonso MD at 15:[address] Tel [phone], Service support , CC: Acacia Whaley SCIENTIFIC RESEARCH MANAGER; Catrina Perry DO Process Development Technician: Signed 19-Dec-2017 Abdomen Single View Result: Comments: See Note; NOTES: [facility] Imaging Services [address] [place] [address] Abdomen Single View MR#: [id number] Acct: [id number] Name: HERMAN LEONARD Rep #: [id number] D OB: 1940 F 76 From: Chris Rachel MD PCP: Catrina Perry DO Status: REG CLI Study: Abdomen Single View Date of Exam: 12/19/17 Exam# [id number] Ordering Dr: Acacia Whaley STUDY: X-RAY - [...] , Service support , CC: Acacia Whaley SCIENTIFIC RESEARCH MANAGER; Catrina Perry DO Process Development Technician: Signed 20-May-2015 Dexa Bone Density Study (HP) Result: Comments: See Note; NOTES: [facility] Imaging Services [address] [place] [address] Verdana 4d Dexa Bone Density Study (HP) MR#: [id number] Acct: [id number] Name : HERMAN LEONARD Rep #: [id number] : 1940 F 74 From: Michael Alonso MD PCP: Tessie Greene DO Status: [facility] CL Study: Dexa Bone Density Study (HP) Date of Exam: 05/20/15 Exam# [id number] Radhai ng Dr: Tessie Greene DO STUDY: [...] Michael Alonso MD at 10:30 EST Tel [phone], Service support [phone], CC: Jailyn Yang MD; Tessie Greene DO Process Development Technician: Signed 06-Apr-2015 Bilat Scrn Digital AND CAD Result: Comments: See Note; NOTES: [facility] Imaging Services [address] [place] [address] Verdana 4d Bilat Scrn Digital AND CAD MR#: [id number] Acct: [id number] Name: HERMAN LEONARD Rep #: [id number] : 1940 F 74 From: Michael Alonso MD PCP: Tessie Greene DO Status: REG CLI Study: Db Viverosn Digital AND CAD Date of Exam: 04/06/15 Exam# [id number] Ordering D r: Tessie Greene DO MAMMOGRAPHY [...] of a clinically suspicious abnormality. Electronically Signed: Micheal Alonso MD at 7:54 EST Tel [phone], Service support [phone], CC: Tessie Greene DO Process Development Technician: Signed 05-Feb-2015 EKG (27232) Comments: ekg showed normal sinus rhythym, normal axis, no acute st/t wave changes Result: [MEASUREMENTS ANALYSIS] Date of Test: 02/05/2015 09:47:50; Heart Rate: 58; MI Interval: 156; QRS: 93; QT Interval: 420; Corrected QT Interval (QTc): 417; P Wave [place]: 31; QRS Wave [place]: 31; T Wave [place]: 44; Blood Pressure: 122/84 [ECG DIAGNOSTIC STATEMENTS] Date of Test: 02/05/2015 09:47:50; Summary: Sinus Bradycardia WITHIN NORMAL LIMITS 27-Mar-2014 Bilat Scrn Digital & CAD Result: Comments: See Note; NOTES: [facility] Imaging Services [address] [place] [address] Breast Imaging Report MR#: [id number] Acct: [id number] Name: HERMAN LEONARD Rep #: [id number] : 1940 F 73 From: Michael Alonso MD PCP: Tessie Greene DO Status: REG CLI Exam# [id number] Ordering Dr: Tessie Greene DO MAMMOGRAPHY - [...] Michael Alonso MD at 9:36 EDT Tel [phone], Service support [phone], CC: Tessie Greene DO Process Development Technician: Signed 26-Mar-2013 Bilat Scrn Digital & CAD Result: Comments: See Note; NOTES: [facility] Imaging Services [address] [place] [address] Breast Imaging Report MR#: [id number] Acct: [id number] Name: HERMAN LEONARD Rep #: [id number] : 1940 F 72 From: Michael Alonso MD PCP: Tessie Greene DO Status: REG CLI Exam# [id number] Ordering Dr: Tessie Greene DO MAMMOGRAPHY - [...] March 26, 2013 at 2:33:33 PM EDT [phone] Electronically Signed GP/GP If you are the referring physician and would like to consult with the radiologist who pr ovided this interpretation, please contact Michael Alonso M.D. at [phone]. If this radiologist is unavailable, you will be directed to another radiologist to assist. If you are a patient w ith a question regarding this report, please contact your referring physician directly. Professional Interpretation Provided By: [employer], Phone , These documents contain legally protected [...] of these documents. CC: Tessie Greene DO Process Development Technician: Signed Immunization Name Dates Details Pneumococcal (2 years and up) on: 04-Apr-2006 Pneumococcal (2 years and up) on: 04-Apr-2006 Comments: Lot #:Expiration date:Amount given:Route: IMSite given:LEFT DELTOIDGiven by: JESSICA Weinberg Family History Unknown Family Member Name Dates Details Father Comments: [place] Status: Active Mother Comments: CHF Status: Active Paternal Grandmother Comments: ABD CA Status: Active Social History Name Dates Details Alcohol Use Comments: Occasional alcohol use Status: Active Non Smoker/No Tobacco Use Status: Active Tobacco use: Never smoker. Status: Active Smoking Status Name Dates Details Never smoker Vital Signs Date Test Result Details 07-Hxh-554841:44 Temperature 97.3 f Comments: Method: Temporal Pulse [...] kg/m2 Body Surface Area Calculated 1.58 m2 41-Grk-306638:20 Comments: 140/82 recheck bp Pulse 65 /min [...] 0.00 cm Results Date Description Value Details 12-Wbx-62433:00 ASP DONE IN LAB See Note (Normal) Comments: [facility] [address] [place], [address] Comments: Patient: HERMAN LEONARD : 1940 (77/) Acct Num: [id number] Phys: Ria PLASCENCIA,[place] Unit Num: [id number] Loc: LAB Specimen: [id number] Received: 04/17/18 - [...] Submitted for cytology study. TC: 5 CPT: 97928, 644842, 64925 , 31891 CYTOLOGY STUDY Slides are reviewed. DIAGNOSIS CYTOLOGY Fine needle aspiration, right neck mass (smear, cell block): Negative for malignant cells. See comment. AM:sp 04/18/18 HEADER OPERATION: FNA, right neck mass PRE-OP DIAGNOSIS: Right neck mass TISSUE SUBMITTED: Right neck mass Signed Janes Arellano 11/15/18 <signature on file> 2-Wkf-437600:47 CREATININE FINGERSTICK Comments: [facility] [address] [place] [address] EGFR WB > 60.0000 mL/min (Normal) CREATININE WB 0.8 mg/dL (Normal) Range: 0.55-1.02 :40 Bilirubin, Direct Comments: Order Date: 03/13/17Order Info: [id number] - *Hepatic Function PanelOrder Info: [id number] - *Lipid Profile CC PCPComments: 12 hours fasting, may have water.DR PÉREZ ORDERED LIPID/LIVERDR VICKY ORDERED TS H/CBCD/LIPID/CMP/UA/[facility] [address] [place], [address] D BILI 0.11 mg/dL (Normal) Range: 0.00-0.30 :40 CBC W/Diff, Automated Comments: DR PÉREZ ORDERED LIPID/LIVERDR PERRY ORDERED TSH/CBCD/LIPID/CMP/UA/[facility] [address] [place], [address] SMEAR COMMENT SCANNED (Normal) Absolute [...] 4.2-5.4 WBC 5.8 K/mm3 (Normal) Range: 4.4-11.0 18-Tgk-25545:40 [facility] Met[facility] Comments: Order Date: 03/13/17Order Info: [id number] - *Hepatic Function PanelOrder Info: 52060-5 - *Lipid Profile CC PCPComments: 12 hours fasting, may have water.DR PÉREZ ORDERED LIPID/LIVERDR VICKY ORDERED TS Profil H/CBCD/LIPID/CMP/UA/[facility] [address] [place], [address] GAP 5 (Normal) Range: 5-15 CO2 32.0 [...] Comments: Please note revised GLUCOSE reference range ufademadt95/02/2018. 31-Nza-58307:40 Lipid Profile Comments: Order Date: 03/13/17Order Info: 0788-1 - *Hepatic Function PanelOrder Info: 24545-4 - *Lipid Profile CC PCPComments: 12 hours fasting, may have water.DR PÉREZ ORDERED LIPID/LIVERDR PERRY ORDERED TS H/CBCD/LIPID/CMP/UA/[facility] [address] [place], [address] VLDL 11 mg/dL (Normal) Range: [...] Comments: DR PÉREZ ORDERED LIPID/LIVERDR VICKY ORDERED TSH/CBCD/LIPID/CMP/UA/[facility] [address] [place], [address] Ratio,Random UR MALB:CREAT 9.7 {mg/g_CRE} (Normal) MICROALBUMIN,UR 5.3 mg/L (Normal) UR CREAT 55.10 mg/dL (Normal) :40 Thyroid Stim Hormone Comments: Order Date: 03/13/17Order Info: [id number] - *Hepatic Function PanelOrder Info: 60222-8 - *Lipid Profile CC PCPComments: 12 hours fasting, may have water.DR PÉREZ ORDERED LIPID/LIVERDR VICKY ORDERED TS (TSH) H/CBCD/LIPID/CMP/UA/[facility] [address] [place], [address] TSH 1.84 {uIU/mL} (Normal) Range: 0.358-3.74 :40 Urinalysis, Complete Comments: DR PÉREZ ORDERED LIPID/JUNIOR PERRY ORDERED TSH/CBCD/LIPID/CMP/UA/MIACREHow was Urine Obtained? CLEAN [facility] [address] [place], [address] MUCUS, URINE 0 SEEN {/hpf} [...] (Normal) CLARITY Clear (Normal) COLOR Yellow (Normal) 66-Otb-454004:44 URINE ALEX CULTURE-IDENTIFICATN Comments: PATIENT NOT FASTINGPERFORMED BY: [facility] Iborcu8960 [facility] [id number] Information: [id number] (60988) Result 1 CNSNSS (Abnormal) Comments: Coagulase negative [...] S Urine Final report Culture,Compreh (Abnormal) ensive 68-Aec-252823:10 Urinalysis, Office (90331) UA - LEUKOCYTE ESTERASE Small (Normal) UA - NITRITE Negative (Normal) URINE UROBILINGN JASMINE TIMED Normal mg/dL (Normal) UA - PROTEIN Negative mg/dL (Normal) UA - PH 7 (Normal) UA - BLOOD non-hemolyzed trace (Normal) UA - SPECIFIC GRAVITY 1.015 (Normal) UA - KETONES Negative mg/dL (Normal) UA - BILIRUBIN Negative (Normal) UA - GLUCOSE Negative (Normal) 01-Zts-951026:16 Basic Metabolic Profile (BMP) Comments: [facility] [address] [facility] [address]. [place], [place], [address] ; will review at appt GAP 6 [...] 7-18 GLU 87 mg/dL (Normal) Range: 70-110 36-Yvu-320060:25 URINE ALEX CULTURE (JASMINE Comments: PATIENT NOT FASTINGPERFORMED BY: [facility] PharmaceuticalAaron [place] 7987070 [facility] [id number] Information: SRC:[facility] [id number] COL COUNT) (13758) Result 1 NG36 (Normal) Comments: No growth in 36 - 48 hours. Urine Culture,Comprehensive Final report (Normal) 12-Vbg-133932:44 Urinalysis, Office (42274) UA - LEUKOCYTE ESTERASE Negative (Normal) UA - NITRITE Negative (Normal) URINE UROBILINGN JASMINE TIMED Normal mg/dL (Normal) UA - PROTEIN Negative mg/dL (Normal) UA - PH 6.5 (Normal) UA - BLOOD Hemolyzed Trace (Normal) UA - SPECIFIC GRAVITY 1.010 (Normal) UA - KETONES Negative mg/dL (Normal) UA - BILIRUBIN Negative (Normal) UA - GLUCOSE Negative (Normal) 12-Egb-573314:10 URINE ALEX CULTURE (JASMINE Comments: PATIENT NOT FASTINGPERFORMED BY: [facility] PharmaceuticalRunnells Specialized HospitalFudsgt5392 [facility] [id number] Information: SRC:[facility] [id number] COL COUNT) (32600) Antimicrobial MIHEAD (Normal) Comments: S = Susceptible; [...] mL (Abnormal) Urine Final report Culture,Comprehensive (Abnormal) 03-Whc-571472:24 Urinalysis, Office (59679) UA - LEUKOCYTE ESTERASE Small (Normal) UA [...] 02-Feb-20157:28 Comprehensive Metabolic Profil Comments: Test performed at:[facility] [address] [facility]. [place], [place] [address] GAP 6 (Normal) Range: 5-15 CO2 29.0 [...] Comments: Please note revised CREATININE reference range yoxcuxdow80/22/2015. BUN 21 mg/dL (Abnormal) Range: 7-18 GLU 85 mg/dL (Normal) Range: 70-110 :28 Lipid Profile Comments: Test performed at:[facility] [address] [facility] [place] [address] ; non-emergent till apt VLDL [...] 200-240 mg/dL Borderline >240 mg/dL High Risk 95-Duw-32090:35 CBC W/Diff, Automated Comments: Test performed at:[facility] [address] [place] [address] ; non- emergent till apt [...] Range: 4.4-11.0 :35 CRP Comments: Test performed at:[facility] [address]utbv[address] [facility] [place] [address] C-REACTIVE PROT 38.60 mg/L (Abnormal) Range: 0.0-3.0 Comments: C-Reactive Protein (CRP) provides useful information for thediagnosis, therapy and monitoring of inflammatory processesand associated diseases. For the evaluation of Relative Riskfor Cardiovascular Dise ase, a High Sensitivity CRP (HSCRP)should be ordered. :35 Culture, Urine Comments: Test performed at:[facility] [address] [facility] [place] [address] CUUR See Note (Normal) Comments: Urine CultureCulture exhibits no growth. :35 Erythrocyte Sed Rate Comments: Test performed at:[facility] [address] [facility] [place] [address] SED RATE 24 mm/h (Normal) Range: 0-30 88-Tqy-674886:11 URINE ALEX CULTURE-JASMINE COL Comments: PATIENT NOT FASTINGPERFORMED BY: [facility] Mubmuy0437 [facility] [id number] Information: SRC:UR [id number] COUNT (65971) Result 1 NG36 (Normal) Comments: No growth in 36 - 48 hours. Urine Culture,Comprehensive Final report (Normal) 64-Nvq-129992:11 Urinalysis, Office (18689) UA - LEUKOCYTE ESTERASE Small (Normal) UA - NITRITE Negative (Normal) URINE UROBILINGN JASMINE TIMED Normal mg/dL (Normal) UA - PROTEIN Trace mg/dL (Normal) UA - PH 6 (Abnormal) UA - BLOOD non-hemolyzed trace (Normal) UA - SPECIFIC GRAVITY 1.020 (Normal) UA - KETONES Negative mg/dL (Normal) UA - BILIRUBIN Negative (Normal) UA - GLUCOSE Negative (Normal) 44-Dhr-953452:57 V-Zoster IgG (Immunity) Comments: Test performed at:[facility] [address] [place], [place] [address] VZOST IgG [address] 1894 {index} (Normal) Comments: Negative <135 Equivocal 135 - 165 Positive >165A positive result generally indicates exposure to thepathogen or adm inistration of specific immunoglobulins,but it is not indication of active infection or stageof disease.Performed at: [facility] [id number] Director: Bernardino grady PhD, Phone: [phone]; ADDENDA: has been seen in office since drawn 45-Pzv-18725:48 CBC W/Diff, Automated Comments: Test performed at:[facility] [address] [place] [address] Absolute Lymph 1.40 {X10_3/ul} (Normal) [...] :48 Comprehensive Metabolic Profil Comments: Test performed at:[facility] [address] [place], [place] [address] GAP 4 (Abnormal) Range: 5-15 CO2 28.0 [...] 70-110 :48 Lipid Profile Comments: Test performed at:[facility] [address] [place], [place] [address] VLDL 14 mg/dL (Normal) Range: 5-40 LDL [...] Thyroid Stim Hormone (TSH) Comments: Test performed at:[facility] [address] [place] [address] TSH 1.57 {uIU/mL} (Normal) Range: [...] CHOL 151 mg/dL (Normal) Comments: <200 mg/dL Izegfadpx957-831 mg/dL Borderline>240 mg/dL High Risk :23 VZG 2963 {index} (Normal) Comments: Negative <135Equivocal 135 - 165Positive >165A positive result generally indicates exposure to thepathogen or administration of specific immunoglobulins,but it is not indicati on of active infection or stageof disease.Performed at: - [address] [id number] Director: Bernardino Camargo PhD, Phone: [phone]; ADDENDA: normal and pt has apt tomorrow [...] CHOL 151 mg/dL (Normal) Comments: <200 mg/dL Ufciqgytu463-547 mg/dL Borderline>240 mg/dL High Risk :17 VITD [...] CHOL 127 mg/dL (Normal) Comments: <200 mg/dL Qnwhnegsi923-758 mg/dL Borderline>240 mg/dL High Risk :49 CBCMD [...] CHOL 129 mg/dL (Normal) Comments: <200 mg/dL Kpzlkyucb535-885 mg/dL Borderline>240 mg/dL High Risk HDL 48 [...] 250 nm ol/L)Toxicity >100 ng/mL (250 nmol/L)Effective 201225-Jun-201279-Ttp-079741:32 URINE ALEX CULTURE (JASMINE Comments: PATIENT NOT FASTINGPERFORMED BY: [facility] Xnxtyk2508 [facility] [id number] Information: SRC:UR [id number] COL COUNT) (69451) Result 1 CNSNSS (Normal) Comments: Coagulase negative Staphylococcus species, not Staphylococcussaprophyticus.100 Colonies/mL .Based on resistance to penicillin and susceptibility to o xacillinthis isolate would be susceptible to:* Penicillinase-stable penicillins; such as: Cloxacillin Dicloxacillin Nafcillin* Beta-lactam/beta-lactamase inhibitor combinations; such as: [place] xicillin-clavulanic acid Ampicillin-sulbactam* Antistaphylococcal cephems; such as: Cefaclor Cefuroxime* Antistaphylococcal carbapenems; such as: Imipenem Meropenem S = Susceptibl e; I = Intermediate; R = Resistant P = Positive; N = Negative MICS are expressed in micrograms per mL Antibiotic RSLT#1 RSLT#2 RSLT#3 RSLT#4 Ciprofloxacin SGentamicin SLevofloxacin SNitrofurantoin SOxacillin SPenicillin RRifampin STetracycline STrimethoprim/Sulfa SVancomycin S Urine Final report Culture,Comprehensi (Normal) ve 27-Ahm-602818:35 Urinalysis, Office (71566) UA - BILIRUBIN Negative (Normal) UA - BLOOD Hemolyzed Large (Normal) UA - GLUCOSE Negative (Normal) UA - KETONES Small mg/dL (Normal) UA - LEUKOCYTE ESTERASE Large (Normal) UA - NITRITE Negative (Normal) UA - PH 7.0 (Normal) UA - PROTEIN 100 mg/dL (Normal) UA - SPECIFIC GRAVITY 1.020 (Normal) URINE UROBILINGN JASMINE TIMED Normal mg/dL (Normal) 8-Dzm-107180:19 Urinalysis, Office (87407) UA - BILIRUBIN Negative (Normal) UA - BLOOD Hemolyzed Trace (Normal) UA - GLUCOSE Negative (Normal) UA - KETONES Negative mg/dL (Normal) UA - LEUKOCYTE ESTERASE Negative (Normal) UA - NITRITE Negative (Normal) UA - PH 7.5 (Normal) UA - PROTEIN Negative mg/dL (Normal) UA - SPECIFIC GRAVITY 1.015 (Normal) URINE UROBILINGN JASMINE TIMED Normal mg/dL (Normal) 2-Ouc-708097:11 URINE ALEX CULTURE-IDENTIFICATN Comments: PATIENT NOT FASTINGPERFORMED BY: ALE[facility] [address]ugh[address] [place] [id number] Information: [id number] (55012) Result 1 NG36 (Normal) Comments: No growth [...] mg/dL Borderline >240 mg/dL High Risk :33 [facility] UMUC 0 SEEN {/hpf} (Normal) UBAC [...] (Normal) UCLAR Clear (Normal) UCOL Yellow (Normal) 8-Nzz-235891:50 RIBS UNIL 2V NO CXR Radiology Report [...] Signed:Mikhail Palencia MDNovember 2011 at 5:31:33 PM [id number] Signed TP/TP If you are the referring physician and would like to consult with theradiologist who provided this inter pretation, please contact Mikhail Palencia MD at [phone]. If this radiologist is unavailable, you will bedirected to another radiologist to assist. If you are a patient with a question regarding this re port, pleasecontactyour referring physician directly. Professional Interpretation Provided By: [employer], Phone , These documents contain legally protected [...] 04/08/12 1738 Sign by: Mikhail Palencia MD 5-Zks-908021:01 BILAT SCRN DIGITAL & CAD Radiology Report [...] Alonso M.D.March 05, 2012 at 2:05:30 PM [id number] Signed GP/GP If you are the referring physician and would like to consult with theradiologist who provided this interpretation, please contact Stuart Wills at [phone]. If this radiologist is unavailable, youwill be directed to another radiologist to assist. If you are a patient with a question regarding this report, pleasecontactyour referring physician directly. Professional Interpretation Provided By: [employer], Phone , These documents contain legally protected [...] Alonso M.D.March 05, 2012 at 2:52:24 PM [id number] Signed GP/GP If you are the referring physici an and would like to consult with theradiologist who provided this interpretation, please contact Stuart Wills at [phone]. If this radiologist is unavailable, youwill be directed to anot her radiologist to assist. If you are a patient with a question regarding this report, pleasecontactyour referring physician directly. Professional Interpretation Provided By: [employer], Phone , These documents contain legally protected [...] on 1457 Sign by: Michael Alonso MD 64-Bsr-25808:26 CBCEM Comments: This patient requested that [facility] send to you acopy of [...] PLATELETS (Normal) Comments: This patient [facility] to you acopy of their Yearly Employee Health Risk Assessment.A copy of this report is also given to the patient so theycan follow up with your office if they choose. 32-Lmi-01790:26 EMP Comments: This patient requested that [facility] to you acopy of their [...] :26 UAEM Comments: This patient requested that [facility] send to you acopy of [...] D deficiency has been defined by the [place] of[place] and an Endocrine Society practice guideline as alevel of serum 25-OH vitamin D less than 20 ng/mL (1,2).The Endocrine Society went on to further define vitamin Dinsufficiency as a level between 21 and 29 ng/mL (2).1. IOM ([place] [employer]). 2010. Dietary reference intakes for calcium and D. [place]: The National Academies Press.2. Paxton MF, Rojelio OSPINA, Cortney GARIBAY, et al. Evaluation, treatment, and prevention of vitamin D deficiency: an Endocrine Society clinical practice guideline. JCEM. 2010; 96(7): 1911-30.Performed at: [address] [id number] Director: Korin Harris MD, Phone: [phone] [address]-156599:34 HEPATOBILIARY IMAGING Radiology Report See Note (Normal) [...] radiologist regarding this report, please call our 95D1yyyhtrb line @ Dictated on 05/31/11 0818 by Ehsan Vázquez DOTranscribed on 05/31/112030 by ITS IMPORTSign by Ehsan Vázquez DO on 05/31/112031 Sign by: Ehsan Vázquez DO 55-Ojw-874452:54 TOE(S),MIN 2 VIEWS Radiology Report See Note [...] regarding this rep ort, please call our 68C3fekyebh line @ Dictated on 05/30/11 1150 by [...] of the right kidney. The right kidn otapoclnvt55.6 x 4.7 x 4.0 cm. Normal renal [...] 05/02/11 1224 Sign by: MAIA SHELTON MD 04-Cbb-468199:02 CBCD,SMEAR DIFF Comments: appt 05/17/11 RED CELL [...] NEGATIVE 0.06 - 0.59 AT RISK OF LA > OR = 0.60 SUGGEST LA :11 ANKLE,MIN 3 VIEWS Radiology Report See [...] 12/14/10 1005 Sign by: GISSELLE GONZALES MD 34-Tyx-13564:52 URINE ALEX CULTURE (JASMINE COL Comments: PATIENT NOT FASTINGPERFORMED BY: [facility]6[address] [facility] [id number] COUNT) (59581) Result 1 NG36 (Normal) Comments: No growth in 36 - 48 hours. Urine Culture,Comprehensive Final report (Normal) 68-Wbp-73463:07 Urinalysis, Office (07296) UA - BILIRUBIN Negative (Normal) UA - [...] CHOL 150 mg/dL (Normal) Comments: <200 mg/dL Aoszgivfb221-470 mg/dL Borderline>240 mg/dL High Risk HDL 56 [...] CHOL 150 mg/dL (Normal) Comments: <200 mg/dL Hqipszxnz691-998 mg/dL Borderline>240 mg/dL High Risk LDH 160 [...] (Normal) Comments: Result: NEGATIVE COLOR YELLOW (Normal) 06-Tgh-871590:10 BILAT SCRN DIGITAL & CAD Radiology See Note Comments: Exam Number: [id number] MAMMOGRAPHY - BILATERAL SCREENING INDICATION:Routine annual screening [...] not delay biopsy of a clinicallysuspicious abnormality.ADDENDUM: [id number] HPBI/MDS MAMMOGRAPHY - BILATERAL SCREENING INDICATION:Routine annua [...] attach ing a ResultCode to this exam.ADDENDUM: [id number] HPBI/MDS Reported By: GISSELLE GONZALES M.D. 87-Meh-398575:09 DEXA BONE DENSITY STUDY (HP) Radiology Report See Note Comments: Exam Number: [id number] CLINICAL:The patient is a 69-year-old female who is postmenopausal with pasthistory of hormone replacement therapy. History of fracture of T2vbriaq history of osteoporosis EXAMINA (Normal) TION:DUAL ENERGY X-RAY ABSORPTIOMETRY / DEXA. TECHNIQUE:Bone Density Measurements (BMD) of lumbar spine and bilateral hipswere obtained using a [employer] scanner. COMPARISON:March 24 999, October 29, 2002, [...] NIH Osteoporosis and Related Bone Diseases http://www.osteo.org2. Sap Project Manager ational Society for Clinical Densitometryhttp://www.iscd.org3. National Osteoporosis Foundation http://www.nof.org Reported By: GISSELLE GONZALES M.D. 24-Dec-19 VIT D,25 42223 39.0 ng/mL Range: 32.0-100.0 1012:08 (Normal) Comments: Recent studies consider the lower limit of 32.0 ng/mL to isabel threshold for optimal health.Sheng BURNETT. J Nutr. 2004;135(2):317- 22.Performed at: [place] [id number] 296Lab Director: Korin Harris MD, Phone: [phone] 29-Oct-19 C DIF TOXIN/AG See Note Comments: [...] Crytosporidium parvum,Cyclospora, or Microsporidia.__ TESTING PERFORMED AT [facility]. ORIGINAL REPORT ONFILE IN LAB CONTAINS ADDITIONAL TEST SITE INFORMATION. OVA/ PARASITES EXAM NO OVA, CYSTS, OR PARASITES FOUND. :40 WBC,STOOL See Note (Normal) Comments: FECAL WBCs NONE SEEN 95-Jkz-736708:25 ABDOMEN/PELVIS WITH CONTRAST Radiology Report See Note (Normal) Comments: Exam Number: [id number] CLINICAL:This is a 68-year-old female patient with [...] SED RATE 48 mm/h (Abnormal) Range: 0-30 20-Tkj-976607:55 URINE ALEX CULTURE (JASMINE Comments: PATIENT NOT FASTINGPERFORMED BY: [facility] Uwuqtt5951 [facility] [id number] Information: SRC:UR [id number] COL COUNT) (53328) Result 1 NG36 (Normal) Comments: No growth in 36 - 48 hours. Urine Culture,Comprehensive Final report (Normal) 90-Yck-241242:20 Urinalysis, Office (84866) UA - LEUKOCYTE ESTERASE Small (Normal) UA - NITRITE Negative (Normal) URINE UROBILINGN JASMINE TIMED 2 mg/dL (Normal) UA - PROTEIN Negative mg/dL (Normal) UA - PH 7.0 (Normal) UA - BLOOD Hemolyzed Trace (Normal) UA - SPECIFIC GRAVITY 1.015 (Normal) UA - KETONES Negative mg/dL (Normal) UA - BILIRUBIN Negative (Normal) UA - GLUCOSE Negative (Normal) 63-Yrz-19629:11 BREAST UNILATERAL US (HP) Radiology Report See Note (Normal) Comments: Exam Number: [id number] CLINICAL:The patient is a 68-year-old female with [...] CHOL 147 mg/dL (Normal) Comments: <200 mg/dL Eqoafddwc535-412 mg/dL Borderline>240 mg/dL High Risk :03 LIVER ALB 4.2 g/dL (Normal) Range: 3.4-5.0 ALK P 66 U/L (Normal) Range: 50-136 ALT 29 U/L (Normal) Range: 12-78 AST 20 U/L (Normal) Range: 15-37 D BILI 0.09 mg/dL (Normal) Range: 0.00-0.30 T BILI 0.30 mg/dL (Normal) Range: 0.00-1.00 T PROT 7.9 g/dL (Normal) Range: 6.4-8.2 :41 Urinalysis, Office (46100) UA - LEUKOCYTE ESTERASE Trace (Normal) UA [...] Report See Note (Normal) Comments: Exam Number: [id number] CLINICAL: 68-year-old female with knee pain lateral [...] a full thickness radial tear of the career resource specialist ior horn of the medial meniscus extending [...] last examination. Reported By: John Alcocer M.D. 7-Rem-674404:24 KNEE,4 OR MORE VIEWS (MT) Radiology Report See Note (Normal) Comments: Exam Number: [id number] CLINICAL:Pain X-RAY EXAMINATION RIGHT KNEE TECHNIQUE:4 view(s) [...] change. Osteopenia. Reported By: ARIADNA PERAZA M.D. 7-Pdy-452533:23 L/S SPINE,MIN 4 VIEWS (MT) Radiology Report See Note (Normal) Comments: Exam Number: [id number] CLINICAL:Low back pain, radiculopathy X-RAY EXAMINATION: LUMBAR [...] acute fracture. Reported By: ARIADNA PERAZA M.D. 6-Hlb-656507:00 EMP URINALYSIS BILIRUBIN URINE SeeNote (Normal) Comments: [...] Range: 0.2 - 1.0 COLOR YELLOW (Normal) 2-Imo-848464:00 ROUTINE UA BILIRUBIN URINE SeeNote (Normal) Comments: [...] 6.4-8.2 URIC 4.3 mg/dL (Normal) Range: 2.6-6.0 30-Rgt-31413:31 DEXA BONE DENSITY STUDY () Radiology Report See Note (Normal) Comments: Exam Number: [id number] BONE DENSITOMETRY HISTORYOsteopenia. TECHNIQUE Bone densitometry of the lumbar spine and both hips is now beingperformed. The best criteria for evaluation of osteoporosis is theT-value, which represents the comparison of the patient's bone mass leigh expected peak bone mass. For most patients, the mean T-value of M1bkgwwty L4 is used to evaluate the lumbar [...] density is measured at 7.2% less than hp7900.The T-valu e of the right femoral neck is -2 which is in the range ofosteopenia.The T- value of the total right hip is -1.7 which is in the range ofosteopenia. IMPRESSIONThere is osteopenia of the lumbar spine and both hips. Reported By: GISSELLE GONZALES M.D. 52-Cqi-80198:54 BREAST UNILATERAL US () Radiology Report See Note (Normal) Comments: Exam Number: [id number] TARGETED LEFT BREAST ULTRASOUND HISTORYAbnormal mammogram. High-resolution [...] Greene's office and the office was called [id number] hours December 22, 2008. Reported By: GISSELLE GONZALES M.D. 65-Wln-704096:35 [facility] Radiology Report See Note (Normal) Comments: Exam Number: [id number] MAMMOGRAM, UNILATERAL LEFT DIAGNOSTIC DIGITAL AND CAD [...] [facility] computer-aided detection software ([employer], [employer] Reported By: GISSELLE GONZALES M.D. :30 BILAT SCRN DIGITAL & CAD Radiology Report See Note (Normal) Comments: Exam Number: [id number] MAMMOGRAM, BILATERAL SCREENING DIGITAL AND CAD HISTORYRoutine [...] mammograms werealso examined with computer-aided detection software ([employer] Reported By: GISSELLE GONZALES M.D. 65-Aom-217119:37 BMP BUN 15 mg/dL (Normal) Range: 7-18 [...] g/dL (Normal) Range: 6.4-8.2 :11 AT3 F/I 99774 AT3 AG, IMMUNOL 131 % (Abnormal) Range: 75-130 AT3 FUNCT 77350 131 % (Normal) Range: 75-135 :11 PROT C [id number] PROT C,[id number] 169 % (Abnormal) Range: 74-151 Comments: Performed At: [address] [id number] PROTEIN C 05439 106 % (Normal) Range: 70-140 :11 PROT S 271296 PROTEIN S, FREE 107 % (Normal) Range: 56-124 PROTEIN S, FUNC 82 % (Normal) Range: 60-145 PROTEIN S,TOTAL 137 % (Normal) Range: 58-150 :38 A-CARDIO 938333 Comments: ORDER ALSO STATES ANTIPHOSPHOLIPIDS, WHICH IS [...] mm/h (Normal) Range: 0-30 :38 FAC II 443757 Comments: ORDER ALSO STATES ANTIPHOSPHOLIPIDS, WHICH IS A SYNONYM OFANTICARDIOLIPIN FACTOR II,DNA Comment (Normal) Comments: NEGATIVENo mutation identified.Comment:A point mutation ([id number]) in the Factor II (prothrombin)gene is the [...] antithrombinIII, protein C and protein S. :38 [facility] [id number] Comments: ORDER ALSO STATES ANTIPHOSPHOLIPIDS, WHICH IS [...] , elevatedhomocysteine levels, or a Factor II/prothrombin mutation(Q86982Y). Contact you r local [facility] for information [...] mg/dL VLDL 31 mg/dL (Normal) Range: 5-40 36-Ahw-840352:35 CULTURE, URINE URINE CULTURE See Note (Normal) Comments: Predominant colony type being a gram positive trevor, probableLactobacillus species. COLONY COUNT 50,000-80,000 ORGANISM 1: MIXED GRAM POSITIVE ORGANISMS 45-Kgt-524650:35 ROUTINE UA BILIRUBIN URINE SeeNote (Normal) Comments: [...] 0.2 EU/dl (Normal) Range: 0.2 - 1.0 62-Ezy-76697:48 Urinalysis, Office (04853) UA - BILIRUBIN Negative (Normal) UA - BLOOD Negative (Normal) UA - GLUCOSE Negative (Normal) UA - KETONES Negative mg/dL (Normal) UA - LEUKOCYTE ESTERASE Trace (Normal) UA - NITRITE Negative (Normal) UA - PH 6.5 (Normal) UA - PROTEIN Negative mg/dL (Normal) UA - SPECIFIC GRAVITY 1.005 (Normal) URINE UROBILINGN JASMINE TIMED 2 mg/dL (Normal) 8-Gkc-501196:04 BILAT SCRN DIGITAL & CAD Radiology Report See Note (Normal) Comments: Exam Number: [id number] MAMMOGRAM, BILATERAL SCREENING DIGITAL AND CAD HISTORYRoutine [...] werea lso examined with computer-aided detection software ([employer].). Reported By: GISSELLE GONZALES M.D. 5-Ptq-376722:41 DEXA BONE DENSITY STUDY (HP) Radiology Report See Note (Normal) Comments: Exam Number: [id number] BONE DENSITOMETRY HISTORYOsteopenia. TECHNIQUE Bone densitometry of [...] density is measured at 0.2% less than uz2939 and 0.1% more than in 2005. IMPRESSIONThere is osteopenia of the lumbar spine and left hip. Reported By: GISSELLE GONZALES M.D. 57-Wxn-85399:19 CBC, EMPLOYEE HCT 36.9 % (Abnormal) Range: [...] {mg/24_hr} (Normal) Range: 1.8-6.7 Comments: Performed At: [address] [id number] VMA,UR 3.4 mg/L (Normal) :16 ALDOST,U24 4291 Comments: 24 H URINE TV = 2580 ML ALDOSTERONE,U24 3 {ug/24_hr} (Normal) Range: 2-21 Comments: 1 mo. 1 - 11 1- 12 mos. 1 - 22 1- 16 yrs. 2 - 16 Adult Ranges Normal diet 2 - 21 Low salt 17 - 44 High salt 0 - 14Performed At: [address] [id number] ALDOSTERONE,UR 1 ug/L (Normal) 76-Cii-332813:17 BRAIN/HEAD W/WO CONTRAST Radiology Report See Note (Normal) Comments: Exam Number: [id number] CT SCAN OF BRAIN HISTORYHeadache. Scans were [...] ethmoid sinusitis. Reported By: GISSELLE GONZALES M.D. 08-Igm-94986:51 CBC With Differential/Platelet Comments: PERFORMED BY: [facility] HospitalWxoywl4359 [facility] [id number] Baso (Absolute) 0.1 {x10E3/uL} (Normal) Range: 0.0-0.2 [...] Comp. Metabolic Panel (14) Comments: PERFORMED BY: [facility] HospitalQycgym4[address] [place] [address] [id number] A/G Ratio 1.5 (Normal) Range: 1.1-2.5 Albumin, [...] Sedimentation 4 mm/h (Normal) Comments: PERFORMED BY: [facility] HospitalGtlptc8310 [facility] [id number] :51 Rate-Westergren Range: 0-30 :29 CULTURE, URINE URINE CULTURE See Note {CFU/mL} (Normal) Comments: COLONY COUNT >100,000 ORGANISM 1: ENTEROCOCCUS FAECALIS ENTEROCOCCUS FAECALIS: REACTION CIPROFLOXACIN GP $$$ <=0.5 S LEVOFLOXAC IN $$ <=1 S NITROFURANTOIN $ <=32 S PENICILLIN G (ENTEROCOCCUS) $$ 2 S TETRACYCLINE $$ <=1 S VANCOMYCIN $$ <=0.5 S 2-Mqz-675691:29 ROUTINE UA BILIRUBIN URINE SeeNote (Normal) Comments: [...] tissue mass Soft tissue mass : 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 Indication: Soft tissue mass Gastroesophageal [...] EASY BRUISABILITY OF SKIN Planned Observations TSH (86831)Indication: Hypercholesterolemia On: Request URINALYSIS, W/ MICRO (32067)Indication: Essential hypertension On: Request MICROALBUMIN: CREATININE RATIO (96617) AND (78768)Indication: Essential hypertension On: : Request METABOLIC PANEL, COMPREHENSIVE (97258)Indication: Essential hypertension On: Request LIPOPROTEIN, BLD, BY NMR (25729)Indication: Hypercholesterolemia On: 52-Nyb-929143:41 Request CBC W/AUTO DIFF WBC (01493)Indication: Essential hypertension On: 59-Qkl-308734:41 Request TSH (98221)Indication: Hypercholesterolemia On: :51 Request URINALYSIS, W/ MICRO (00382)Indication: Essential hypertension On: :51 Request MICROALBUMIN: CREATININE RATIO (62794) AND (61396)Indication: Essential hypertension On: :51 Request METABOLIC PANEL, COMPREHENSIVE (30007)Indication: Essential hypertension On: :51 Request LIPID PANEL (56527)Indication: Essential hypertension On: :51 Request CBC W/AUTO DIFF WBC (85415)Indication: Essential hypertension On: :51 Request Metabolic Panel, Basic (24439)Indication: Essential hypertension On: 21-Xuz-212676:32 Request Comments: 2 weeks Vitamin D Hydroxy (83439)Indication: Osteopenia On: :23 Request URINALYSIS, W/ MICRO (24194)Indication: Essential hypertension On: :23 Request CBC W/AUTO DIFF WBC (87857)Indication: Essential hypertension On: :23 Request METABOLIC PANEL, COMPREHENSIVE (73825)Indication: Essential hypertension On: :23 Request LIPID PANEL (24734)Indication: Hypercholesterolemia On: :22 Request SED RATE ERYTHROCYTE (81465)Indication: Abdominal pain, acute, generalized On: :47 Request C-REACTIVE PROTEIN (92482)Indication: Abdominal pain, acute, generalized On: :47 Request CBC with auto diff (71056)Indication: Abdominal pain, acute, generalized On: :46 Request URINALYSIS, W/ MICRO (07633)Indication: Essential hypertension On: :27 Request LIPID PANEL (23297)Indication: Hypercholesterolemia On: :27 Request METABOLIC PANEL, COMPREHENSIVE (01695)Indication: Essential hypertension On: :26 Request VARICELLA-ZOSTER ANTBODY (41626)Indication: Hypercholesterolemia On: 40-Diq-184350:58 Request TSH (80581)Indication: Anxiety associated with depression On: :12 Request LIPID PANEL (94847)Indication: Hypercholesterolemia On: :12 Request CBC W/AUTO DIFF WBC (11530)Indication: Essential hypertension On: :12 Request METABOLIC PANEL, COMPREHENSIVE (87359)Indication: Essential hypertension On: :12 Request VARICELLA-ZOSTER ANTBODY (87893)Indication: screen On: :59 Request CBC WITH MANUAL DIFF (86195)Indication: Essential hypertension On: 78-Sfr-292794:59 Request LIPID PANEL (76798)Indication: Hypercholesterolemia On: :58 Request METABOLIC PANEL, COMPREHENSIVE (35176)Indication: Essential hypertension On: 38-Vif-101436:58 Request Vitamin D Hydroxy (97443)Indication: Osteopenia On: :33 Request METABOLIC PANEL, COMPREHENSIVE (33371)Indication: Essential hypertension On: :33 Request LIPID PANEL (70036)Indication: Hypercholesterolemia On: :33 Request METABOLIC PANEL, COMPREHENSIVE (10034)Indication: Essential hypertension On: :57 Request LIPID PANEL (02253)Indication: Hypercholesterolemia On: :56 Request Vitamin D Hydroxy (90980)Indication: Anxiety associated with depression On: 38-Wiq-944833:51 Request CBC WITH MANUAL DIFF (49683)Indication: Essential hypertension On: 67-Htw-924835:51 Request METABOLIC PANEL, COMPREHENSIVE (55795)Indication: Essential hypertension On: 63-Nxa-340664:51 Request TSH (36047)Indication: Anxiety associated with depression On: 63-Lql-575018:51 Request LIPID PANEL (37274)Indication: Hypercholesterolemia On: 14-Ysz-984069:50 Request CBC WITH MANUAL DIFF (45358)Indication: Essential hypertension On: :30 Request METABOLIC PANEL, COMPREHENSIVE (23043)Indication: Essential hypertension On: :25 Request LIPID PANEL (04590)Indication: Hypercholesterolemia On: :25 Request URINALYSIS, W/ MICRO (48364)Indication: Essential hypertension On: 39-Gfl-186455:08 Request CBC WITH MANUAL DIFF (35961)Indication: Essential hypertension On: 63-Xwp-995436:08 Request METABOLIC PANEL, COMPREHENSIVE (66664)Indication: Essential hypertension On: 53-Cmk-372201:06 Request LIPID PANEL (18611)Indication: Hypercholesterolemia On: 63-Uco-137453:06 Request LIPID PANEL (39953)Indication: Hypercholesterolemia On: :28 Request CBC WITH MANUAL DIFF (55173)Indication: Essential hypertension On: :28 Request METABOLIC PANEL, COMPREHENSIVE (27740)Indication: Essential hypertension On: :28 Request METABOLIC PANEL, COMPREHENSIVE (15053)Indication: Essential hypertension On: :48 Request Vitamin D Hydroxy (24585)Indication: Depression On: :48 Request LIPID PANEL (34034)Indication: Hypercholesterolemia On: 19-Mgd-371123:47 Request CBC WITH MANUAL DIFF (86216)Indication: Other chest pain On: 70-Xte-968708:19 Request METABOLIC PANEL, COMPREHENSIVE (98614)Indication: Other chest pain On: 36-Fku-893644:18 Request ASSAY, TROPONIN, QUANTITATIVE (aka Troponin I) (21551)Indication: Other chest pain On: 36-Dnk-429922:18 Request Comments: stat CALCIFEDIOL (95235)Indication: Eczema (Renamed from Dermatitis, eczematoid) On: 60-Clk-262599:34 Request OVA & PARASITE DIR SMEAR (74475)Indication: Diarrhea (Renamed from D (diarrhea)) On: 47-Qdx-491328:11 Request LEUKOCYTE COUNT, FECAL (05366)Indication: Diarrhea (Renamed from D (diarrhea)) On: 96-Ufp-139322:10 Request C.Difficile, Stool (42347)Indication: Diarrhea (Renamed from D (diarrhea)) On: 20-Jwa-275286:10 Request ALEX CULTURE-STOOL (28064)Indication: Diarrhea (Renamed from D (diarrhea)) On: 80-Vdq-186095:10 Request SED RATE ERYTHROCYTE (34423)Indication: Abdominal pain, acute, left lower quadrant On: 10-Loc-703049:10 Request C-REACTIVE PROTEIN (59534)Indication: Abdominal pain, acute, left lower quadrant On: 43-Stl-933279:10 Request URINALYSIS, W/ MICRO (93624)Indication: Abdominal pain, acute, left lower quadrant On: 51-Mqo-538730:10 Request METABOLIC PANEL, COMPREHENSIVE (11132)Indication: Abdominal pain, acute, left lower quadrant On: 38-Rvo-348521:10 Request CBC WITH MANUAL DIFF (43097)Indication: Abdominal pain, acute, left lower quadrant On: 74-Rdu-232875:10 Request METABOLIC PANEL, COMPREHENSIVE (00221)Indication: Essential hypertension On: 76-Mpu-533657:47 Request HEPATIC FUNCTION PANEL (38871)Indication: Hypercholesterolemia On: :47 Request LIPID PANEL (41956)Indication: Hypercholesterolemia On: :47 Request Vitamin D Hydroxy (90468)Indication: Osteopenia On: :46 Request LIPID PANEL (84499)Indication: Hypercholesterolemia On: :38 Request HEPATIC FUNCTION PANEL (39004)Indication: Hypercholesterolemia On: :38 Request Metabolic Panel, Basic (29483)Indication: DISORDERS, ORGANIC, SLEEP RELATED LEG CRAMPS On: 83-Nqb-762043:17 Request URINALYSIS W/O MICRO (83345)Indication: Essential hypertension On: :48 Request TSH (99236)Indication: Essential hypertension On: :48 Request METABOLIC PANEL, COMPREHENSIVE (78445)Indication: Essential hypertension On: 4-Csz-997663:48 Request CBC WITH MANUAL DIFF (92213)Indication: Essential hypertension On: :48 Request LIPID PANEL (32660)Indication: Hypercholesterolemia On: :48 Request CBC WITH MANUAL DIFF (56335)Indication: Anemia, unspecified On: 54-Beo-08782:51 Request LIPID PANEL (65634)Indication: Hypercholesterolemia On: :31 Request HEPATIC FUNCTION PANEL (91599)Indication: Hypercholesterolemia On: :41 Request LIPID PANEL (24142)Indication: Hypercholesterolemia On: :41 Request SED RATE ERYTHROCYTE (24385)Indication: Headache (Renamed from Cephalalgia) On: 28-Ihq-28975:40 Request METABOLIC PANEL, COMPREHENSIVE (44781)Indication: Headache (Renamed from Cephalalgia) On: :39 Request CBC WITH MANUAL DIFF (48729)Indication: Headache (Renamed from Cephalalgia) On: :39 Request CBC WITH MANUAL DIFF (49589)Indication: EASY BRUISABILITY OF SKIN On: :59 Request PTT (ACTIVATED PARTIAL THROMBOPLASTIN TIME) (20182)Indication: EASY BRUISABILITY OF SKIN On: :59 Request PT (PROTHROMBIN TIME) (17784)Indication: EASY BRUISABILITY OF SKIN On: :59 Request HEPATIC FUNCTION PANEL (08192)Indication: Hypercholesterolemia On: :54 Request LIPID PANEL (44492)Indication: Hypercholesterolemia On: :54 Request Planned Encounters Medical; 2 Week FU - On: 03-May-2018 11:45 [facility] Catrina Perry DO, DO, [facility]; 4 Month FU - On: 16-Aug-2018 10:00 [facility] Catrina Perry DO, DO, Kathleen Planned Procedures CT OF NECK WITHOUT THEN WITH On: 09-Apr-2018 Intent INTRAVENOUS CONTRAST (04071)By: Comments: include thyroid Acacia Whaley CNP Ultrasound - ThyroidBy: Jovana OJEDA, On: 09-Apr-2018 Intent Acacia Wang Comments: attetion soft tissue rt side of neck Flu Vaccine (Quadrivalent) 38319Hy: On: 13-Mar-2018 Intent Ladi Max Comments: Lot #[id number]-L dltd, IMDose prefilled syringegiven by:SABINA Mclain reviewed and ABN signed FLAT PLATE (71899)By: Jovana OJEDA, On: 19-Dec-2017 Intent Acacia Wang ELECTROCARDIOGRAM, COMPLETE (ECG) On: 12-Dec-2017 Intent (46074)By: Catrina Perry DO Comments: nsr no acute chg Catrina Perry DO Bone Density StudyBy: Tessie Greene DO On: 10-May-2015 Intent A Comments: screening ADMINISTRATION OF INFLUENZA VIRUS On: 05-Feb-2015 Intent VACCINE (G0008)By: Tessie Greene DO A Flu Vaccine (Quadrivalent) 05511Cs: On: 05-Feb-2015 Intent Tessie Greene DO Comments: Lot:[id number]:09/01/15Dose:0.5mLRoute:IMSite:L DltdGiven By:MARTY signed MAMMOGRAM, SCREENING, BOTH BREAST On: 05-Feb-2015 Intent (73433)By: Tessie Greene DO Comments: reilly DEXA SCAN AXIAL SKELETON (30023)By: On: 05-Feb-2015 Intent Tessie Greene DO Comments: reilly Solu -Medrol Injection, 125 mg On: 09-Dec-2014 Intent (J2930)By: Acacia Whaley CNP Comments: lot:[id number]:route:IMdose:125MGsite: R glutGiven by: ROSANGELA Gamble MAMMOGRAM, SCREENING, BOTH BREAST On: 13-Mar-2014 Intent (06655)By: Tessie Greene DO ADMINISTRATION OF INFLUENZA VIRUS On: 13-Mar-2014 Intent VACCINE (G0008)By: Tessie Greene DO FLU VAC, SPLIT, >3 YEARS, INTRAMUSC On: 13-Mar-2014 Intent (60996)By: Tessie Greene DO Comments: lot: [id number]: 12-01-13site/route: L del/IMamt: 0.5mLVIS signed when applicableROSANGELA Villa Eprescribed prescriptions (G8553)By: On: 16-Sep-2013 Intent Tessie Greene DO Eprescribed prescriptions (G8553)By: On: 18-Mar-2013 Intent Libby Herndon FLU VAC, SPLIT, >3 YEARS, INTRAMUSC On: 20-Feb-2013 Intent (31290)By: Fallon Carranza Comments: Lot:[id number]:Dose:0.5mLRoute:IMSite:L DltdGiven By:MARTY signed IMMUNIZ ADMNIN, 1 VAC, SNGL/COMBO On: 20-Feb-2013 Intent (01042)By: Fallon Carranza MAMMOGRAM, SCREENING, BOTH BREASTS On: 31-Dec-2012 Intent (96215)By: Tessie Greene DO Eprescribed prescriptions (G8553)By: On: 11-Nov-2012 Intent Libby Herndon Eprescribed prescriptions (G8553)By: On: 23-Sep-2012 Intent Libby Herndon EKG (97444)By: Libby Herndon On: 21-Aug-2012 Intent Comments: ekg showed normal sinus rhythym, normal axis, no acute st/t wave changes Eprescribed prescriptions (G8553)By: On: 25-Jun-2012 Intent Tanya Bermudez LPN PNEUM VAC ADLT/IMUMNOSPR, SBC/INTRM On: 03-May-2012 Intent (72051)By: Tessie Greene DO Comments: Lot:[id number]:08-06-13Dose:0.5mLRoute:IMSite:L armGiven By:AGA ADMINISTRATION OF PNEUMOCOCCAL On: 03-May-2012 Intent VACCINE (G0009)By: Tessie Greene DO Eprescribed prescriptions (G8553)By: On: 03-May-2012 Intent Libby Herndon Eimzcmnrq-Ftu-Teowi (39038)By: Jovana On: 08-Apr-2012 Intent Acacia OJEDA DXA, BONE DENSITY, AXIAL SKELETON On: 30-Jan-2012 Intent (46908)By: Tessie Greene DO MAMMOGRAM, SCREENING, BOTH BREASTS On: 30-Jan-2012 Intent (97074)By: Tessie Greene DO IMMUNIZ ADMNIN, 1 VAC, SNGL/COMBO On: 30-Jan-2012 Intent (68370)By: Megan Phillips LPN Comments: Lot/Exp: [id number], 11/2011Given in L Dltd, IMPrefilled SyringeBy ROEL Guzman FLU VAC, SPLIT, >3 YEARS, INTRAMUSC On: 30-Jan-2012 Intent (28363)By: Megan Phillips LPN Breast Screening - BilateralBy: [...] DO, Tessie A On: 01-May-2011 Intent EKG (23402)By: Libby Herndon On: 01-May-2011 Intent Comments: ekg showed normal sinus rhythym, normal axis, no acute st/t wave changes poor r wave progression unchanged TDAP VACCINE >7 IM (89697)By: On: 01-May-2011 Intent Libby Herndon Comments: work FLU VAC, SPLIT, >3 YEARS, INTRAMUSC On: 01-May-2011 Intent (27098)By: Libby [place] Comments: work DXA, BONE DENSITY, AXIAL SKELETON On: 09-Feb-2011 Intent ([id number])By: Monserrat Granado LPN MAMMOGRAM, SCREENING, BOTH BREASTS On: 09-Feb-2011 Intent ([id number])By: Monserrat Granado LPN Radiology - Ankle - LeftBy: C[place] On: 14-Dec-2010 Intent RUSTY Acacia Wang Comments: call wet read to Acacia Whaley Eprescribed prescriptions ([id number])By: On: 15-Nov-2010 Intent Jc DO Tessie A CT - Abdomen & PelvisBy: Jc DO, On: 26-Oct-2009 Intent Tessie A Comments: tomorrow call wet read EKG ([id number])By: Libby [place] On: 30-Aug-2009 Intent Comments: do [...] DO, On: 07-Jun-2007 Intent Tessie A EKG ([id number])By: Jc BROUSSARD Tessie A On: 28-Apr-2007 Intent Comments: ordered to be done at the hospital CT - Brain/HeadBy: Tessie Greene DO On: 20-Mar-2007 Intent Comments: with and without contrast- please do stat and call wet read IMMUNIZ ADMNIN, 1 VAC, SNGL/COMBO On: 04-Apr-2006 Intent ([id number])By: Libby [place] PNEUM VAC ADLT/IMUMNOSPR, SBC/INTRM On: 04-Apr-2006 Intent ([id number])By: Libby [place] Comments: Lot #:Expiration date:Amount given:Route: IMSite given:LEFT DELTOIDGiven by: JESSICA Weinberg IMMUNIZ ADMNIN, 1 VAC, SNGL/COMBO On: 04-Apr-2006 Intent ([id number])By: Tessie Greene DO PNEUM VAC ADLT/IMUMNOSPR, SBC/INTRM On: 04-Apr-2006 Intent ([id number])By: Tessie Greene DO Planned Medications INJECTION, METHYLPREDNISOLONE [...] patient does have durable power of deputy county attorney and living will. The patient has [...] patient does have durable power of deputy county attorney and living will. The patient has noticed nothing from the geriatic depre ssion scale. Other providers contributing to the patient's care are other: (hearing and eye drLatrell herrera and Dr. Zamora). 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 Nichole at [facility]). 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
--- OUTSIDE RECORDS SUMMARY | 2018-08-24 15:57 | XMS RPT_ITS | Continuity of Care Document ---
:1940 External Reference #:[id number] Author Organization [facility] Address [address] [place] [address] Phone Care Team Providers Name Role Phone Catrina Perry DO Unavailable Ricardo Rollins MD Unavailable Dr. Addison Kimball Unavailable Poly Bunn Unavailable Duke PLASCENCIA, Dr. Janes Dougherty Unavailable Winter, Ladi Unavailable Unavailable Sadia Goel Unavailable Unavailable Libby Herndon Unavailable Unavailable Fallon Carranza Unavailable Unavailable Slag Skimmer, System Unavailable Unavailable Carolin Garber LPN Unavailable [...] 1 qd (20 MG) Active CITRACAL MAXIMUM, [id number] (Oral Tablet) 1 tab bid (315-250 MG-UNIT) [...] for 0 days Refills: 0 Ordered:31-Dec-2017 Slarb SALES PROMOTION MANAGER, AngelaActive Omeprazole 20 MG Oral Capsule Delayed [...] Name Dates Details Bactrim *ANTI-INFECTIVE AGENTS - [facility] Status: Active (Allergy) Comments: nausea Allergy to [...] Result: Comments: See Note; NOTES: [facility] Imaging Services [address] [place] [address] Soft Tissue Neck WITH Contrast MR#: [id number] Acct: [id number] Name: HERMAN LEONARD Rep #: [id number] : 1940 F 77 From: Michael Alonso MD PCP: Catrina Perry DO Status: REG CLI Study: Soft Tissue Neck WITH Contrast Date of Exam: 04/10/18 Exam# [id number] Ordering Dr: Acacia Whaley STUDY: CT SOFT [...] FINDINGS: Normal bilateral parotid glands. Normal bilateral director medical science spaces. Normal bilateral parapharyngeal spaces. Normal bilateral [...] Alonso MD 04/10 at 15:37 EST Tel [phone], Service support , CC: Acacia Whaley NP; Catrina Perry DO Top Executive: Signed 10-Apr-2018 Soft Tissue Neck WITH Contrast Result: Comments: See Note; NOTES: [facility] Imaging Services [address] [place] [address] Soft Tissue Neck WITH Contrast MR#: [id number] Acct: [id number] Name: HERMAN LEONARD Rep #: [id number] : 1940 F 77 From: Michael Alonso MD PCP: Catrina Perry DO Status: REG CLI Study: Soft Tissue Neck WITH Contrast Date of Exam: 04/10/18 Exam# [id number] Ordering Dr: Acacia Whaley P-C ADDENDUM by [...] Michael Alonso MD at 8:47 EST Tel [phone], Service support , 04/11/18 0847 Date cc : Acacia Whaley NP; Catrina Perry DO * Signed ADDENDUM by Michael Alonso MD on 04/11/[address]/Soft Tissue Neck WITH Contrast 04/11/18 0854 Date cc: Acacia Arenasmikayla HAND CELL TUBER; Catrina Perry DO * Signed STUDY: CT [...] FINDINGS: Normal bilateral parotid glands. Normal bilateral director medical science spaces. Normal bilateral parapharyngeal spaces. Normal bilateral [...] Michael Alonso MD at 15:37 EST Tel [phone], Service support , CC: Acacia Whaley NP; Catrina Perry DO Top Executive: Signed 09-Apr-2018 Thyroid Result: Comments: See Note; NOTES: [facility] Imaging Services [address] [place] [address] Thyroid MR#: [id number] Acct: [id number] Name: HERMAN LEONARD Rep #: [id number] : [birth year] F 77 From: Michael Alonso MD PCP: Catrina Perry DO Status: REG CLI Study: Thyroid Date of Exam: 04/09/18 Exam# [id number] Ordering Dr: Acacia Whaley HAND CELL TUBER-C STUDY: THYROID ULTRASOUND REASON FOR EX AM: [...] Alonso MD at 15:[address] Tel [phone], Service support , CC: Acacia Whaley HAND CELL TUBER; Catrina Perry DO Top Executive: Signed 19-Dec-2017 Abdomen Single View Result: Comments: See Note; NOTES: [facility] Imaging Services [address] [place] [address] Abdomen Single View MR#: [id number] Acct: [id number] Name: HERMAN LEONARD Rep #: [id number] D OB: 1940 F 76 From: Chris Rachel MD PCP: Catrina Perry DO Status: REG CLI Study: Abdomen Single View Date of Exam: 12/19/17 Exam# [id number] Ordering Dr: Acacia Whaley STUDY: X-RAY - [...] , Service support , CC: Acacia Whaley HAND CELL TUBER; Catrina Perry DO Top Executive: Signed 20-May-2015 Dexa Bone Density Study (HP) Result: Comments: See Note; NOTES: [facility] Imaging Services [address] [place] [address] Verdana 4d Dexa Bone Density Study (HP) MR#: [id number] Acct: [id number] Name : HERMAN LEONARD Rep #: [id number] : 1940 F 74 From: Michael Alonso MD PCP: Tessie Greene DO Status: [facility] CL Study: Dexa Bone Density Study (HP) Date of Exam: 05/20/15 Exam# [id number] Radhai ng Dr: Tessie Greene DO STUDY: [...] Michael Alonso MD at 10:30 EST Tel [phone], Service support [phone], CC: Jailyn Yang MD; Tessie Greene DO Top Executive: Signed 06-Apr-2015 Bilat Scrn Digital AND CAD Result: Comments: See Note; NOTES: [facility] Imaging Services [address] [place] [address] Verdana 4d Bilat Scrn Digital AND CAD MR#: [id number] Acct: [id number] Name: HERMAN LEONARD Rep #: [id number] : 1940 F 74 From: Michael Alonso MD PCP: Tessie Greene DO Status: REG CLI Study: Db Viverosn Digital AND CAD Date of Exam: 04/06/15 Exam# [id number] Ordering D r: Tessie Greene DO MAMMOGRAPHY [...] Michael Alonso MD at 7:54 EST Tel [phone], Service support [phone], CC: Tessie Greene DO Top Executive: Signed 05-Feb-2015 EKG (38525) Comments: ekg showed normal sinus rhythym, normal axis, no acute st/t wave changes Result: [MEASUREMENTS ANALYSIS] Date of Test: 02/05/2015 09:47:50; Heart Rate: 58; OK Interval: 156; QRS: 93; QT Interval: 420; Corrected QT Interval (QTc): 417; P Wave [place]: 31; QRS Wave [place]: 31; T Wave [place]: 44; Blood Pressure: 122/84 [ECG DIAGNOSTIC STATEMENTS] Date of Test: 02/05/2015 09:47:50; Summary: Sinus Bradycardia WITHIN NORMAL LIMITS 27-Mar-2014 Bilat Scrn Digital & CAD Result: Comments: See Note; NOTES: [facility] Imaging Services [address] [place] [address] Breast Imaging Report MR#: [id number] Acct: [id number] Name: HERMAN LEONARD Rep #: [id number] : 1940 F 73 From: Michael Alonso MD PCP: Tessie Greene DO Status: REG CLI Exam# [id number] Ordering Dr: Tessie Greene DO MAMMOGRAPHY - [...] Michael Alonso MD at 9:36 EDT Tel [phone], Service support [phone], CC: Tessie Greene DO Top Executive: Signed 26-Mar-2013 Bilat Scrn Digital & CAD Result: Comments: See Note; NOTES: [facility] Imaging Services [address] [place] [address] Breast Imaging Report MR#: [id number] Acct: [id number] Name: HERMAN LEONARD Rep #: [id number] : 1940 F 72 From: Michael Alonso MD PCP: Tessie Greene DO Status: REG CLI Exam# [id number] Ordering Dr: Tessie Greene DO MAMMOGRAPHY - [...] March 26, 2013 at 2:33:33 PM EDT [phone] Electronically Signed GP/GP If you are the referring physician and would like to consult with the radiologist who pr ovided this interpretation, please contact Michael Alonso M.D. at [phone]. If this radiologist is unavailable, you will be directed to another radiologist to assist. If you are a patient w ith a question regarding this report, please contact your referring physician directly. Professional Interpretation Provided By: judo, Phone , These documents contain legally protected [...] of these documents. CC: Tessie Greene DO Top Executive: Signed Immunization Name Dates Details Pneumococcal (2 years and up) on: 04-Apr-2006 Pneumococcal (2 years and up) on: 04-Apr-2006 Comments: Lot #:Expiration date:Amount given:Route: IMSite given:LEFT DELTOIDGiven by: JESSICA Weinberg Family History Unknown Family Member Name Dates Details Father Comments: IA Status: Active Mother Comments: CHF Status: Active Paternal Grandmother Comments: ABD CA Status: Active Social History Name Dates Details Alcohol Use Comments: Occasional alcohol use Status: Active Non Smoker/No Tobacco Use Status: Active Tobacco use: Never smoker. Status: Active Smoking Status Name Dates Details Never smoker Vital Signs Date Test Result Details 54-Yhc-826222:44 Temperature 97.3 f Comments: Method: Temporal Pulse [...] kg/m2 Body Surface Area Calculated 1.58 m2 94-Bny-044904:20 Comments: 140/82 recheck bp Pulse 65 /min [...] 0.00 cm Results Date Description Value Details 86-Sue-81587:00 ASP DONE IN LAB See Note (Normal) Comments: [facility] [address] [place], [address] Comments: Patient: HERMAN LEONARD : 1940 (77/) Acct Num: [id number] Phys: Ria PLASCENCIA,Sedan Unit Num: [id number] Loc: LAB Specimen: [id number] Received: 04/17/18 - [...] Submitted for cytology study. TC: 5 CPT: 89217, 146708, 14691 , 41003 CYTOLOGY STUDY Slides are reviewed. DIAGNOSIS CYTOLOGY Fine needle aspiration, right neck mass (smear, cell block): Negative for malignant cells. See comment. AM:sp 04/18/18 HEADER OPERATION: FNA, right neck mass PRE-OP DIAGNOSIS: Right neck mass TISSUE SUBMITTED: Right neck mass Signed Janes Arellano 11/15/18 <signature on file> 2-Epq-724359:47 CREATININE FINGERSTICK Comments: [facility] LaboratoryPoint of [address] [place] [address] EGFR WB > 60.0000 mL/min (Normal) CREATININE WB 0.8 mg/dL (Normal) Range: 0.55-1.02 :40 Bilirubin, Direct Comments: Order Date: 03/13/17Order Info: 0788- [id number] - *Hepatic Function PanelOrder Info: 60608-8 - *Lipid Profile CC PCPComments: 12 hours fasting, may have water.DR PÉREZ ORDERED LIPID/LIVERDR VICKY ORDERED TS H/CBCD/LIPID/CMP/UA/[facility] [address] [place], [address] D BILI 0.11 mg/dL (Normal) Range: 0.00-0.30 :40 CBC W/Diff, Automated Comments: DR PÉREZ ORDERED LIPID/LIVERDR PERRY ORDERED TSH/CBCD/LIPID/CMP/UA/[facility] [address] [place], [address] SMEAR COMMENT SCANNED (Normal) Absolute [...] 4.2-5.4 WBC 5.8 K/mm3 (Normal) Range: 4.4-11.0 65-Ddj-39261:40 [facility] Comments: Order Date: 03/13/17Order Info: 0788-1 - *Hepatic Function PanelOrder Info: 87191-3 - *Lipid Profile CC PCPComments: 12 hours fasting, may have water.DR PÉREZ ORDERED LIPID/LIVERDR VICKY ORDERED TS Profil H/CBCD/LIPID/CMP/UA/[facility] [address] [place], [address] GAP 5 (Normal) Range: 5-15 CO2 32.0 [...] Comments: Please note revised GLUCOSE reference range acrfhujvo79/02/2018. 98-Qhi-41695:40 Lipid Profile Comments: Order Date: 03/13/17Order Info: 0788-1 - *Hepatic Function PanelOrder Info: 10168-1 - *Lipid Profile CC PCPComments: 12 hours fasting, may have water.DR PÉREZ ORDERED LIPID/LIVERDR PERRY ORDERED TS H/CBCD/LIPID/CMP/UA/[facility] [address] [place], [address] VLDL 11 mg/dL (Normal) Range: [...] Comments: DR PÉREZ ORDERED LIPID/LIVERDR VICKY ORDERED TSH/CBCD/LIPID/CMP/UA/[facility] [address] [place], [address] Ratio,Random UR MALB:CREAT 9.7 {mg/g_CRE} (Normal) MICROALBUMIN,UR 5.3 mg/L (Normal) UR CREAT 55.10 mg/dL (Normal) :40 Thyroid Stim Hormone Comments: Order Date: 03/13/17Order Info: 0788-1 - *Hepatic Function PanelOrder Info: 29283-2 - *Lipid Profile CC PCPComments: 12 hours fasting, may have water.DR PÉREZ ORDERED LIPID/LIVERDR VICKY ORDERED TS (TSH) H/CBCD/LIPID/CMP/UA/[facility] [address] [place], [address] TSH 1.84 {uIU/mL} (Normal) Range: 0.358-3.74 :40 Urinalysis, Complete Comments: DR PÉREZ ORDERED LIPID/JUNIOR PERRY ORDERED TSH/CBCD/LIPID/CMP/UA/MIACREHow was Urine Obtained? CLEAN [facility] [address] [place], [address] MUCUS, URINE 0 SEEN {/hpf} [...] (Normal) CLARITY Clear (Normal) COLOR Yellow (Normal) 29-Wwg-281727:44 URINE ALEX CULTURE-IDENTIFICATN Comments: PATIENT NOT FASTINGPERFORMED BY: [facility] Ptlqjd3784 [facility] [id number] Information: [id number] (70599) Result 1 CNSNSS (Abnormal) Comments: Coagulase negative [...] S Urine Final report Culture,Compreh (Abnormal) ensive 70-Mxs-911733:10 Urinalysis, Office (04320) UA - LEUKOCYTE ESTERASE Small (Normal) UA - NITRITE Negative (Normal) URINE UROBILINGN JASMINE TIMED Normal mg/dL (Normal) UA - PROTEIN Negative mg/dL (Normal) UA - PH 7 (Normal) UA - BLOOD non-hemolyzed trace (Normal) UA - SPECIFIC GRAVITY 1.015 (Normal) UA - KETONES Negative mg/dL (Normal) UA - BILIRUBIN Negative (Normal) UA - GLUCOSE Negative (Normal) 43-Kes-361116:16 Basic Metabolic Profile (BMP) Comments: [facility] [address] [facility] [address]. [place], [place], [address] ; will review at appt GAP 6 [...] 7-18 GLU 87 mg/dL (Normal) Range: 70-110 64-Cqe-299061:25 URINE ALEX CULTURE (JASMINE Comments: PATIENT NOT FASTINGPERFORMED BY: [employer] NetworksAlexandra [place] 6394870 [facility] [id number] Information: SRC:[facility] [id number] COL COUNT) (92227) Result 1 NG36 (Normal) Comments: No growth in 36 - 48 hours. Urine Culture,Comprehensive Final report (Normal) 05-Dir-677081:44 Urinalysis, Office (40770) UA - LEUKOCYTE ESTERASE Negative (Normal) UA - NITRITE Negative (Normal) URINE UROBILINGN JASMINE TIMED Normal mg/dL (Normal) UA - PROTEIN Negative mg/dL (Normal) UA - PH 6.5 (Normal) UA - BLOOD Hemolyzed Trace (Normal) UA - SPECIFIC GRAVITY 1.010 (Normal) UA - KETONES Negative mg/dL (Normal) UA - BILIRUBIN Negative (Normal) UA - GLUCOSE Negative (Normal) 49-Uhq-379587:10 URINE ALEX CULTURE (JASMINE Comments: PATIENT NOT FASTINGPERFORMED BY: [facility] NetworksMorristown Medical CenterJtydds6920 [facility] [id number] Information: SRC:[facility] [id number] COL COUNT) (18053) Antimicrobial MIHEAD (Normal) Comments: S = Susceptible; [...] mL (Abnormal) Urine Final report Culture,Comprehensive (Abnormal) 81-Zpa-130659:24 Urinalysis, Office (67965) UA - LEUKOCYTE ESTERASE Small (Normal) UA [...] 02-Feb-20157:28 Comprehensive Metabolic Profil Comments: Test performed at:[facility] [address]fnm[address] [facility] [place], [place] [address] GAP 6 (Normal) Range: 5-15 CO2 29.0 [...] Comments: Please note revised CREATININE reference range elydcdcop37/22/2015. BUN 21 mg/dL (Abnormal) Range: 7-18 GLU 85 mg/dL (Normal) Range: 70-110 :28 Lipid Profile Comments: Test performed at:[facility] [address]omxx[address] [facility] [place] [address] ; non-emergent till apt VLDL [...] 200-240 mg/dL Borderline >240 mg/dL High Risk 14-Esr-62560:35 CBC W/Diff, Automated Comments: Test performed at:[facility] [address] [place] [address] ; non- emergent till apt [...] Range: 4.4-11.0 :35 CRP Comments: Test performed at:[facility] [address] [facility] [place] [address] C-REACTIVE PROT 38.60 mg/L (Abnormal) Range: 0.0-3.0 Comments: C-Reactive Protein (CRP) provides useful information for thediagnosis, therapy and monitoring of inflammatory processesand associated diseases. For the evaluation of Relative Riskfor Cardiovascular Dise ase, a High Sensitivity CRP (HSCRP)should be ordered. :35 Culture, Urine Comments: Test performed at:[facility] [address] [facility] [place] [address] CUUR See Note (Normal) Comments: Urine CultureCulture exhibits no growth. :35 Erythrocyte Sed Rate Comments: Test performed at:[facility] [address]lexeuphg3287 [facility] [place] [address] SED RATE 24 mm/h (Normal) Range: 0-30 04-Qba-064145:11 URINE ALEX CULTURE-JASMINE COL Comments: PATIENT NOT FASTINGPERFORMED BY: [facility] Guvdwm9429 [facility] [id number] Information: SRC:UR [id number] COUNT (21430) Result 1 NG36 (Normal) Comments: No growth in 36 - 48 hours. Urine Culture,Comprehensive Final report (Normal) 70-Ssl-009233:11 Urinalysis, Office (48705) UA - LEUKOCYTE ESTERASE Small (Normal) UA - NITRITE Negative (Normal) URINE UROBILINGN JASMINE TIMED Normal mg/dL (Normal) UA - PROTEIN Trace mg/dL (Normal) UA - PH 6 (Abnormal) UA - BLOOD non-hemolyzed trace (Normal) UA - SPECIFIC GRAVITY 1.020 (Normal) UA - KETONES Negative mg/dL (Normal) UA - BILIRUBIN Negative (Normal) UA - GLUCOSE Negative (Normal) 32-Xgn-677161:57 V-Zoster IgG (Immunity) Comments: Test performed at:[facility] [address] [place], [place] [address] VZOST IgG [address] 1894 {index} (Normal) Comments: Negative <135 Equivocal 135 - 165 Positive >165A positive result generally indicates exposure to thepathogen or adm inistration of specific immunoglobulins,but it is not indication of active infection or stageof disease.Performed at: [facility] [id number] Director: Bernardino grady PhD, Phone: [phone]; ADDENDA: has been seen in office since drawn 37-Weu-22725:48 CBC W/Diff, Automated Comments: Test performed at:[facility] [address] [place] [address] Absolute Lymph 1.40 {X10_3/ul} (Normal) [...] :48 Comprehensive Metabolic Profil Comments: Test performed at:[facility] [address] [place], [place] [address] GAP 4 (Abnormal) Range: 5-15 CO2 28.0 [...] 70-110 :48 Lipid Profile Comments: Test performed at:[facility] [address] [place], [place] [address] VLDL 14 mg/dL (Normal) Range: 5-40 LDL [...] Thyroid Stim Hormone (TSH) Comments: Test performed at:[facility] [address] [place] [address] TSH 1.57 {uIU/mL} (Normal) Range: [...] CHOL 151 mg/dL (Normal) Comments: <200 mg/dL Btfkwyrum897-195 mg/dL Borderline>240 mg/dL High Risk :23 VZG 2963 {index} (Normal) Comments: Negative <135Equivocal 135 - 165Positive >165A positive result generally indicates exposure to thepathogen or administration of specific immunoglobulins,but it is not indicati on of active infection or stageof disease.Performed at: - [address] [id number] Director: Bernardino Camargo PhD, Phone: [phone]; ADDENDA: normal and pt has apt tomorrow [...] CHOL 151 mg/dL (Normal) Comments: <200 mg/dL Ldevyidcj315-878 mg/dL Borderline>240 mg/dL High Risk :17 VITD [...] CHOL 127 mg/dL (Normal) Comments: <200 mg/dL Qmecpokhd323-576 mg/dL Borderline>240 mg/dL High Risk :49 CBCMD [...] CHOL 129 mg/dL (Normal) Comments: <200 mg/dL Sixqecqjq819-321 mg/dL Borderline>240 mg/dL High Risk HDL 48 [...] 250 nm ol/L)Toxicity >100 ng/mL (250 nmol/L)Effective 201225-Jun-201238-Vpw-503017:32 URINE ALEX CULTURE (JASMINE Comments: PATIENT NOT FASTINGPERFORMED BY: [facility] Ycuiej7714 [facility] [id number] Information: SRC:UR [id number] COL COUNT) (47996) Result 1 CNSNSS (Normal) Comments: Coagulase negative Staphylococcus species, not Staphylococcussaprophyticus.100 Colonies/mL .Based on resistance to penicillin and susceptibility to o xacillinthis isolate would be susceptible to:* Penicillinase-stable penicillins; such as: Cloxacillin Dicloxacillin Nafcillin* Beta-lactam/beta-lactamase inhibitor combinations; such as: [place] xicillin-clavulanic acid Ampicillin-sulbactam* Antistaphylococcal cephems; such as: Cefaclor Cefuroxime* Antistaphylococcal carbapenems; such as: Imipenem Meropenem S = Susceptibl e; I = Intermediate; R = Resistant P = Positive; N = Negative MICS are expressed in micrograms per mL Antibiotic RSLT#1 RSLT#2 RSLT#3 RSLT#4 Ciprofloxacin SGentamicin SLevofloxacin SNitrofurantoin SOxacillin SPenicillin RRifampin STetracycline STrimethoprim/Sulfa SVancomycin S Urine Final report Culture,Comprehensi (Normal) ve 78-Gxg-689405:35 Urinalysis, Office (86980) UA - BILIRUBIN Negative (Normal) UA - BLOOD Hemolyzed Large (Normal) UA - GLUCOSE Negative (Normal) UA - KETONES Small mg/dL (Normal) UA - LEUKOCYTE ESTERASE Large (Normal) UA - NITRITE Negative (Normal) UA - PH 7.0 (Normal) UA - PROTEIN 100 mg/dL (Normal) UA - SPECIFIC GRAVITY 1.020 (Normal) URINE UROBILINGN JASMINE TIMED Normal mg/dL (Normal) 4-Xtz-426452:19 Urinalysis, Office (40436) UA - BILIRUBIN Negative (Normal) UA - BLOOD Hemolyzed Trace (Normal) UA - GLUCOSE Negative (Normal) UA - KETONES Negative mg/dL (Normal) UA - LEUKOCYTE ESTERASE Negative (Normal) UA - NITRITE Negative (Normal) UA - PH 7.5 (Normal) UA - PROTEIN Negative mg/dL (Normal) UA - SPECIFIC GRAVITY 1.015 (Normal) URINE UROBILINGN JASMINE TIMED Normal mg/dL (Normal) 7-Hvr-273381:11 URINE ALEX CULTURE-IDENTIFICATN Comments: PATIENT NOT FASTINGPERFORMED BY: A[facility] [address] [place] [id number] Information: [id number] (10741) Result 1 NG36 (Normal) Comments: No growth [...] mg/dL Borderline >240 mg/dL High Risk :33 [facility] UMUC 0 SEEN {/hpf} (Normal) UBAC 0 [...] (Normal) UCLAR Clear (Normal) UCOL Yellow (Normal) 7-Thj-576932:50 RIBS UNIL 2V NO CXR Radiology Report [...] Signed:Mikhail Palencia MDNovember 2011 at 5:31:33 PM [id number] Signed TP/TP If you are the referring physician and would like to consult with theradiologist who provided this inter pretation, please contact Mikhail Palencia MD at [phone]. If this radiologist is unavailable, you will bedirected to another radiologist to assist. If you are a patient with a question regarding this re port, pleasecontactyour referring physician directly. Professional Interpretation Provided By: judo, Phone , These documents contain legally protected [...] 04/08/12 1738 Sign by: Mikhail Palencia MD 8-Adg-446168:01 BILAT SCRN DIGITAL & CAD Radiology Report [...] Alonso M.D.March 05, 2012 at 2:05:30 PM [id number] Signed GP/GP If you are the referring physician and would like to consult with theradiologist who provided this interpretation, please contact Stuart Wills at [phone]. If this radiologist is unavailable, youwill be directed to another radiologist to assist. If you are a patient with a question regarding this report, pleasecontactyour referring physician directly. Professional Interpretation Provided By: judo, Phone , These documents contain legally protected [...] Alonso M.D.March 05, 2012 at 2:52:24 PM [id number] Signed GP/GP If you are the referring physici an and would like to consult with theradiologist who provided this interpretation, please contact Stuart Wills at [phone]. If this radiologist is unavailable, youwill be directed to anot her radiologist to assist. If you are a patient with a question regarding this report, pleasecontactyour referring physician directly. Professional Interpretation Provided By: judo, Phone , These documents contain legally protected [...] on 1457 Sign by: Michael Alonso MD 10-Twg-23092:26 CBCEM Comments: This patient requested that [facility] send to you acopy of their [...] Comments: This [facility] to you acopy of their Yearly Employee Health Risk Assessment.A copy of this report is also given to the patient so theycan follow up with your office if they choose. 41-Nca-66793:26 EMP Comments: This patient requested that [facility] send to you acopy of their [...] :26 UAEM Comments: This patient requested that [facility] send to you acopy of their [...] D deficiency has been defined by the [place] ofMedicine and an Endocrine Society practice guideline as alevel of serum 25-OH vitamin D less than 20 ng/mL (1,2).The Endocrine Society went on to further define vitamin Dinsufficiency as a level between 21 and 29 ng/mL (2).1. IOM ([place] of Medicine). 2010. Dietary reference intakes for calcium and D. [place]: The National Academies Press.2. Paxton MF, Rojelio OSPINA, Cortney GARIBAY, et al. Evaluation, treatment, and prevention of vitamin D deficiency: an Endocrine Society clinical practice guideline. JCEM. 2010; 96(7): 1911-30.Performed at: 54 [address] [id number] Director: Korin Harris MD, Phone: [phone] 54-Xwl-211174:34 HEPATOBILIARY IMAGING Radiology Report See Note (Normal) [...] radiologist regarding this report, please call our 33Q0itdibua line @ Dictated on 05/31/11 0818 by Ehsan Vázquez DOTranscribed on 05/31/112030 by ITS IMPORTSign by Ehsan Vázquez DO on 05/31/112031 Sign by: Ehsan Vázquez DO 77-Aia-992867:54 TOE(S),MIN 2 VIEWS Radiology Report See Note [...] regarding this rep ort, please call our 00J2ybfnlma line @ Dictated on 05/30/11 1150 by [...] of the right kidney. The right kidn zpidjjizdk78.6 x 4.7 x 4.0 cm. Normal renal [...] 05/02/11 1224 Sign by: MAIA SHELTON MD 76-Fxp-677244:02 CBCD,SMEAR DIFF Comments: appt 05/17/11 RED CELL [...] NEGATIVE 0.06 - 0.59 AT RISK OF IA > OR = 0.60 SUGGEST IA :11 ANKLE,MIN 3 VIEWS Radiology Report See [...] 12/14/10 1005 Sign by: GISSELLE GONZALES MD 85-Kwh-51268:52 URINE ALEX CULTURE (JASMINE COL Comments: PATIENT NOT FASTINGPERFORMED BY: [facility] [facility] [id number] COUNT) (05649) Result 1 NG36 (Normal) Comments: No growth in 36 - 48 hours. Urine Culture,Comprehensive Final report (Normal) 43-Ulo-88014:07 Urinalysis, Office (92567) UA - BILIRUBIN Negative (Normal) UA - [...] CHOL 150 mg/dL (Normal) Comments: <200 mg/dL Vasyuzvzm133-780 mg/dL Borderline>240 mg/dL High Risk HDL 56 [...] CHOL 150 mg/dL (Normal) Comments: <200 mg/dL Qmzrdkjiw343-842 mg/dL Borderline>240 mg/dL High Risk LDH 160 [...] (Normal) Comments: Result: NEGATIVE COLOR YELLOW (Normal) 75-Sbc-804276:10 BILAT SCRN DIGITAL & CAD Radiology See Note Comments: Exam Number: [id number] MAMMOGRAPHY - BILATERAL SCREENING INDICATION:Routine annual screening [...] not delay biopsy of a clinicallysuspicious abnormality.ADDENDUM: [id number] HPBI/MDS MAMMOGRAPHY - BILATERAL SCREENING INDICATION:Routine annua [...] attach ing a ResultCode to this exam.ADDENDUM: [id number] HPBI/MDS Reported By: GISSELLE GONZALES M.D. 57-Cqb-807774:09 DEXA BONE DENSITY STUDY (HP) Radiology Report See Note Comments: Exam Number: [id number] CLINICAL:The patient is a 69-year-old female who is postmenopausal with pasthistory of hormone replacement therapy. History of fracture of L5vmndlb history of osteoporosis EXAMINA (Normal) TION:DUAL ENERGY X-RAY ABSORPTIOMETRY / DEXA. TECHNIQUE:Bone Density Measurements (BMD) of lumbar spine and bilateral hipswere obtained using a Commun[employer] scanner. COMPARISON:March 24 999, October 29, 2002, [...] NIH Osteoporosis and Related Bone Diseases http://www.osteo.org2. Shredding Machine Knife Changer ational Society for Clinical Densitometryhttp://www.iscd.org3. National Osteoporosis Foundation http://www.nof.org Reported By: IGSSELLE GONZALES M.D. 24-Dec-19 VIT D,25 06329 39.0 ng/mL Range: 32.0-100.0 1012:08 (Normal) Comments: Recent studies consider the lower limit of 32.0 ng/mL to isabel threshold for optimal health.Sheng BURNETT. J Nutr. 2004;135(2):317- 22.Performed at: [place] [id number]Lab Director: Korin Harris MD, Phone: [phone] 29-Oct-19 C DIF TOXIN/AG See Note Comments: [...] Crytosporidium parvum,Cyclospora, or Microsporidia.__ TESTING PERFORMED AT [facility]. ORIGINAL REPORT ONFILE IN LAB CONTAINS ADDITIONAL TEST SITE INFORMATION. OVA/ PARASITES EXAM NO OVA, CYSTS, OR PARASITES FOUND. :40 WBC,STOOL See Note (Normal) Comments: FECAL WBCs NONE SEEN 72-Kwm-090720:25 ABDOMEN/PELVIS WITH CONTRAST Radiology Report See Note (Normal) Comments: Exam Number: [id number] CLINICAL:This is a 68-year-old female patient with [...] SED RATE 48 mm/h (Abnormal) Range: 0-30 24-Tpg-128319:55 URINE ALEX CULTURE (JASMINE Comments: PATIENT NOT FASTINGPERFORMED BY: [facility] [facility] [id number] Information: SRC:UR [id number] COL COUNT) (57245) Result 1 NG36 (Normal) Comments: No growth in 36 - 48 hours. Urine Culture,Comprehensive Final report (Normal) 01-Wni-145571:20 Urinalysis, Office (49553) UA - LEUKOCYTE ESTERASE Small (Normal) UA - NITRITE Negative (Normal) URINE UROBILINGN JASMINE TIMED 2 mg/dL (Normal) UA - PROTEIN Negative mg/dL (Normal) UA - PH 7.0 (Normal) UA - BLOOD Hemolyzed Trace (Normal) UA - SPECIFIC GRAVITY 1.015 (Normal) UA - KETONES Negative mg/dL (Normal) UA - BILIRUBIN Negative (Normal) UA - GLUCOSE Negative (Normal) 43-Lzx-44460:11 BREAST UNILATERAL US (HP) Radiology Report See Note (Normal) Comments: Exam Number: [id number] CLINICAL:The patient is a 68-year-old female with [...] CHOL 147 mg/dL (Normal) Comments: <200 mg/dL Cdqufbsxe157-019 mg/dL Borderline>240 mg/dL High Risk :03 LIVER ALB 4.2 g/dL (Normal) Range: 3.4-5.0 ALK P 66 U/L (Normal) Range: 50-136 ALT 29 U/L (Normal) Range: 12-78 AST 20 U/L (Normal) Range: 15-37 D BILI 0.09 mg/dL (Normal) Range: 0.00-0.30 T BILI 0.30 mg/dL (Normal) Range: 0.00-1.00 T PROT 7.9 g/dL (Normal) Range: 6.4-8.2 :41 Urinalysis, Office (93727) UA - LEUKOCYTE ESTERASE Trace (Normal) UA [...] Report See Note (Normal) Comments: Exam Number: [id number] CLINICAL: 68-year-old female with knee pain lateral [...] a full thickness radial tear of the product picker ior horn of the medial meniscus extending [...] last examination. Reported By: John Alcocer M.D. 1-Viy-943027:24 KNEE,4 OR MORE VIEWS (MT) Radiology Report See Note (Normal) Comments: Exam Number: [id number] CLINICAL:Pain X-RAY EXAMINATION RIGHT KNEE TECHNIQUE:4 view(s) [...] change. Osteopenia. Reported By: ARIADNA PERAZA M.D. 8-Dpn-650110:23 L/S SPINE,MIN 4 VIEWS (MT) Radiology Report See Note (Normal) Comments: Exam Number: [id number] CLINICAL:Low back pain, radiculopathy X-RAY EXAMINATION: LUMBAR [...] acute fracture. Reported By: ARIADNA PERAZA M.D. 8-Ibe-371141:00 EMP URINALYSIS BILIRUBIN URINE SeeNote (Normal) Comments: [...] Range: 0.2 - 1.0 COLOR YELLOW (Normal) 4-Dpd-333251:00 ROUTINE UA BILIRUBIN URINE SeeNote (Normal) Comments: [...] 6.4-8.2 URIC 4.3 mg/dL (Normal) Range: 2.6-6.0 30-Rew-37410:31 DEXA BONE DENSITY STUDY () Radiology Report See Note (Normal) Comments: Exam Number: [id number] BONE DENSITOMETRY HISTORYOsteopenia. TECHNIQUE Bone densitometry of the lumbar spine and both hips is now beingperformed. The best criteria for evaluation of osteoporosis is theT-value, which represents the comparison of the patient's bone mass leigh expected peak bone mass. For most patients, the mean T-value of Z4wremsjr L4 is used to evaluate the lumbar [...] density is measured at 7.2% less than mk2616.The T-valu e of the right femoral neck is -2 which is in the range ofosteopenia.The T- value of the total right hip is -1.7 which is in the range ofosteopenia. IMPRESSIONThere is osteopenia of the lumbar spine and both hips. Reported By: GISSELLE GONZALES M.D. 65-Vli-17690:54 BREAST UNILATERAL US () Radiology Report See Note (Normal) Comments: Exam Number: [id number] TARGETED LEFT BREAST ULTRASOUND HISTORYAbnormal mammogram. High-resolution [...] Greene's office and the office was called qw1860 hours December 22, 2008. Reported By: GISSELLE GONZALES M.D. 14-Jzj-043929:35 [facility] Radiology Report See Note (Normal) Comments: Exam Number: [id number] MAMMOGRAM, UNILATERAL LEFT DIAGNOSTIC DIGITAL AND CAD [...] The mammograms werealso examined w [facility] computer-aided detection software ([employer], [employer] Reported By: GISSELLE GONZALES M.D. :30 BILAT SCRN DIGITAL & CAD Radiology Report See Note (Normal) Comments: Exam Number: [id number] MAMMOGRAM, BILATERAL SCREENING DIGITAL AND CAD HISTORYRoutine [...] mammograms werealso examined with computer-aided detection software ([employer] Reported By: GISSELLE GONZALES M.D. 44-Nbh-745753:37 BMP BUN 15 mg/dL (Normal) Range: 7-18 [...] g/dL (Normal) Range: 6.4-8.2 :11 AT3 F/I 28878 AT3 AG, IMMUNOL 131 % (Abnormal) Range: 75-130 AT3 FUNCT 75587 131 % (Normal) Range: 75-135 :11 PROT C 734836 PROT C,[id number] 169 % (Abnormal) Range: 74-151 Comments: Performed At: [address] [id number] PROTEIN C 16660 106 % (Normal) Range: 70-140 :11 PROT S 549868 PROTEIN S, FREE 107 % (Normal) Range: 56-124 PROTEIN S, FUNC 82 % (Normal) Range: 60-145 PROTEIN S,TOTAL 137 % (Normal) Range: 58-150 :38 A-CARDIO [id number] Comments: ORDER ALSO STATES ANTIPHOSPHOLIPIDS, WHICH IS [...] mm/h (Normal) Range: 0-30 :38 FAC II 573105 Comments: ORDER ALSO STATES ANTIPHOSPHOLIPIDS, WHICH IS A SYNONYM OFANTICARDIOLIPIN FACTOR II,DNA Comment (Normal) Comments: NEGATIVENo mutation identified.Comment:A point mutation ([id number]) in the Factor II (prothrombin)gene is the [...] antithrombinIII, protein C and protein S. :38 [facility] 403170 Comments: ORDER ALSO STATES ANTIPHOSPHOLIPIDS, WHICH IS [...] , elevatedhomocysteine levels, or a Factor II/prothrombin mutation(U69439O). Contact you r local [facility] for information [...] mg/dL VLDL 31 mg/dL (Normal) Range: 5-40 37-Sle-343290:35 CULTURE, URINE URINE CULTURE See Note (Normal) Comments: Predominant colony type being a gram positive trevor, probableLactobacillus species. COLONY COUNT 50,000-80,000 ORGANISM 1: MIXED GRAM POSITIVE ORGANISMS 67-Bgb-450304:35 ROUTINE UA BILIRUBIN URINE SeeNote (Normal) Comments: [...] 0.2 EU/dl (Normal) Range: 0.2 - 1.0 49-Elc-89832:48 Urinalysis, Office (62951) UA - BILIRUBIN Negative (Normal) UA - BLOOD Negative (Normal) UA - GLUCOSE Negative (Normal) UA - KETONES Negative mg/dL (Normal) UA - LEUKOCYTE ESTERASE Trace (Normal) UA - NITRITE Negative (Normal) UA - PH 6.5 (Normal) UA - PROTEIN Negative mg/dL (Normal) UA - SPECIFIC GRAVITY 1.005 (Normal) URINE UROBILINGN JASMINE TIMED 2 mg/dL (Normal) 6-Qtz-292779:04 BILAT SCRN DIGITAL & CAD Radiology Report See Note (Normal) Comments: Exam Number: [id number] MAMMOGRAM, BILATERAL SCREENING DIGITAL AND CAD HISTORYRoutine [...] werea lso examined with computer-aided detection software ([employer].). Reported By: GISSELLE GONZALES M.D. 8-Ose-456266:41 DEXA BONE DENSITY STUDY (HP) Radiology Report See Note (Normal) Comments: Exam Number: [id number] BONE DENSITOMETRY HISTORYOsteopenia. TECHNIQUE Bone densitometry of [...] density is measured at 0.2% less than ot1383 and 0.1% more than in 2005. IMPRESSIONThere is osteopenia of the lumbar spine and left hip. Reported By: GISSELLE GONZALES M.D. 64-Yib-20365:19 CBC, EMPLOYEE HCT 36.9 % (Abnormal) Range: [...] {mg/24_hr} (Normal) Range: 1.8-6.7 Comments: Performed At: [address] [id number] VMA,UR 3.4 mg/L (Normal) :16 ALDOST,U24 4291 Comments: 24 H URINE TV = 2580 ML ALDOSTERONE,U24 3 {ug/24_hr} (Normal) Range: 2-21 Comments: 1 mo. 1 - 11 1- 12 mos. 1 - 22 1- 16 yrs. 2 - 16 Adult Ranges Normal diet 2 - 21 Low salt 17 - 44 High salt 0 - 14Performed At: [address] [id number] ALDOSTERONE,UR 1 ug/L (Normal) 56-Cli-164859:17 BRAIN/HEAD W/WO CONTRAST Radiology Report See Note (Normal) Comments: Exam Number: [id number] CT SCAN OF BRAIN HISTORYHeadache. Scans were [...] ethmoid sinusitis. Reported By: GISSELLE GONZALES M.D. 55-Zxp-78624:51 CBC With Differential/Platelet Comments: PERFORMED BY: [facility] CenterZeowel14[facility] [id number] Baso (Absolute) 0.1 {x10E3/uL} (Normal) Range: 0.0-0.2 [...] Comp. Metabolic Panel (14) Comments: PERFORMED BY: [facility] NetworksMor[facility] CenterKgndvd[address] [place] [address] [id number] A/G Ratio 1.5 (Normal) Range: 1.1-2.5 Albumin, [...] Sedimentation 4 mm/h (Normal) Comments: PERFORMED BY: [facility]Mor[facility] CenterMuzogf4402 [facility] [id number] :51 Rate-Westergren Range: 0-30 :29 CULTURE, URINE URINE CULTURE See Note {CFU/mL} (Normal) Comments: COLONY COUNT >100,000 ORGANISM 1: ENTEROCOCCUS FAECALIS ENTEROCOCCUS FAECALIS: REACTION CIPROFLOXACIN GP $$$ <=0.5 S LEVOFLOXAC IN $$ <=1 S NITROFURANTOIN $ <=32 S PENICILLIN G (ENTEROCOCCUS) $$ 2 S TETRACYCLINE $$ <=1 S VANCOMYCIN $$ <=0.5 S 5-Rgc-828578:29 ROUTINE UA BILIRUBIN URINE SeeNote (Normal) Comments: [...] tissue mass Soft tissue mass : 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 Indication: Soft tissue mass Gastroesophageal reflux [...] EASY BRUISABILITY OF SKIN Planned Observations TSH (73807)Indication: Hypercholesterolemia On: Request URINALYSIS, W/ MICRO (08261)Indication: Essential hypertension On: Request MICROALBUMIN: CREATININE RATIO (38845) AND (95564)Indication: Essential hypertension On: : Request METABOLIC PANEL, COMPREHENSIVE (71345)Indication: Essential hypertension On: Request LIPOPROTEIN, BLD, BY NMR (15304)Indication: Hypercholesterolemia On: 36-Rof-242763:41 Request CBC W/AUTO DIFF WBC (83826)Indication: Essential hypertension On: 21-Qfg-851856:41 Request TSH (57613)Indication: Hypercholesterolemia On: :51 Request URINALYSIS, W/ MICRO (90858)Indication: Essential hypertension On: :51 Request MICROALBUMIN: CREATININE RATIO (50751) AND (11347)Indication: Essential hypertension On: :51 Request METABOLIC PANEL, COMPREHENSIVE (61492)Indication: Essential hypertension On: :51 Request LIPID PANEL (58526)Indication: Essential hypertension On: :51 Request CBC W/AUTO DIFF WBC (20358)Indication: Essential hypertension On: :51 Request Metabolic Panel, Basic (01172)Indication: Essential hypertension On: 02-Oip-626821:32 Request Comments: 2 weeks Vitamin D Hydroxy (07277)Indication: Osteopenia On: :23 Request URINALYSIS, W/ MICRO (61037)Indication: Essential hypertension On: :23 Request CBC W/AUTO DIFF WBC (93812)Indication: Essential hypertension On: :23 Request METABOLIC PANEL, COMPREHENSIVE (51760)Indication: Essential hypertension On: :23 Request LIPID PANEL (64457)Indication: Hypercholesterolemia On: :22 Request SED RATE ERYTHROCYTE (40236)Indication: Abdominal pain, acute, generalized On: :47 Request C-REACTIVE PROTEIN (11112)Indication: Abdominal pain, acute, generalized On: :47 Request CBC with auto diff (43770)Indication: Abdominal pain, acute, generalized On: :46 Request URINALYSIS, W/ MICRO (67620)Indication: Essential hypertension On: :27 Request LIPID PANEL (45035)Indication: Hypercholesterolemia On: :27 Request METABOLIC PANEL, COMPREHENSIVE (49701)Indication: Essential hypertension On: :26 Request VARICELLA-ZOSTER ANTBODY (36674)Indication: Hypercholesterolemia On: 56-Zbo-844681:58 Request TSH (44263)Indication: Anxiety associated with depression On: :12 Request LIPID PANEL (36311)Indication: Hypercholesterolemia On: :12 Request CBC W/AUTO DIFF WBC (48810)Indication: Essential hypertension On: :12 Request METABOLIC PANEL, COMPREHENSIVE (09493)Indication: Essential hypertension On: :12 Request VARICELLA-ZOSTER ANTBODY (68868)Indication: screen On: :59 Request CBC WITH MANUAL DIFF (29270)Indication: Essential hypertension On: 75-Iym-249404:59 Request LIPID PANEL (13304)Indication: Hypercholesterolemia On: :58 Request METABOLIC PANEL, COMPREHENSIVE (62209)Indication: Essential hypertension On: 51-Cea-302637:58 Request Vitamin D Hydroxy (14949)Indication: Osteopenia On: :33 Request METABOLIC PANEL, COMPREHENSIVE (21947)Indication: Essential hypertension On: :33 Request LIPID PANEL (84433)Indication: Hypercholesterolemia On: :33 Request METABOLIC PANEL, COMPREHENSIVE (49778)Indication: Essential hypertension On: :57 Request LIPID PANEL (99640)Indication: Hypercholesterolemia On: :56 Request Vitamin D Hydroxy (53233)Indication: Anxiety associated with depression On: 44-Xmw-005604:51 Request CBC WITH MANUAL DIFF (25489)Indication: Essential hypertension On: 49-Loe-136802:51 Request METABOLIC PANEL, COMPREHENSIVE (56059)Indication: Essential hypertension On: 76-Vxk-319886:51 Request TSH (51702)Indication: Anxiety associated with depression On: 29-Xdg-636769:51 Request LIPID PANEL (34351)Indication: Hypercholesterolemia On: 52-Rjs-750118:50 Request CBC WITH MANUAL DIFF (37273)Indication: Essential hypertension On: :30 Request METABOLIC PANEL, COMPREHENSIVE (06079)Indication: Essential hypertension On: :25 Request LIPID PANEL (46742)Indication: Hypercholesterolemia On: :25 Request URINALYSIS, W/ MICRO (71058)Indication: Essential hypertension On: 66-Lie-824418:08 Request CBC WITH MANUAL DIFF (70548)Indication: Essential hypertension On: 00-Dxa-243565:08 Request METABOLIC PANEL, COMPREHENSIVE (35780)Indication: Essential hypertension On: 33-Jue-116958:06 Request LIPID PANEL (92547)Indication: Hypercholesterolemia On: 59-Kwa-616627:06 Request LIPID PANEL (78105)Indication: Hypercholesterolemia On: :28 Request CBC WITH MANUAL DIFF (97225)Indication: Essential hypertension On: :28 Request METABOLIC PANEL, COMPREHENSIVE (52058)Indication: Essential hypertension On: :28 Request METABOLIC PANEL, COMPREHENSIVE (34020)Indication: Essential hypertension On: :48 Request Vitamin D Hydroxy (92778)Indication: Depression On: :48 Request LIPID PANEL (03249)Indication: Hypercholesterolemia On: 01-Opm-856859:47 Request CBC WITH MANUAL DIFF (90404)Indication: Other chest pain On: 63-Psi-151017:19 Request METABOLIC PANEL, COMPREHENSIVE (43961)Indication: Other chest pain On: 49-Nnf-555780:18 Request ASSAY, TROPONIN, QUANTITATIVE (aka Troponin I) (50675)Indication: Other chest pain On: 49-Xdy-483343:18 Request Comments: stat CALCIFEDIOL (72739)Indication: Eczema (Renamed from Dermatitis, eczematoid) On: 65-Jxn-281457:34 Request OVA & PARASITE DIR SMEAR (97996)Indication: Diarrhea (Renamed from D (diarrhea)) On: 68-Mvv-416898:11 Request LEUKOCYTE COUNT, FECAL (90457)Indication: Diarrhea (Renamed from D (diarrhea)) On: 14-Ywo-974318:10 Request C.Difficile, Stool (69701)Indication: Diarrhea (Renamed from D (diarrhea)) On: 46-Ogg-540358:10 Request ALEX CULTURE-STOOL (76109)Indication: Diarrhea (Renamed from D (diarrhea)) On: 94-Iji-383060:10 Request SED RATE ERYTHROCYTE (51526)Indication: Abdominal pain, acute, left lower quadrant On: 90-Rlo-437845:10 Request C-REACTIVE PROTEIN (60835)Indication: Abdominal pain, acute, left lower quadrant On: 73-Otj-977535:10 Request URINALYSIS, W/ MICRO (12427)Indication: Abdominal pain, acute, left lower quadrant On: 84-Hyt-139179:10 Request METABOLIC PANEL, COMPREHENSIVE (05176)Indication: Abdominal pain, acute, left lower quadrant On: 05-Qyx-714918:10 Request CBC WITH MANUAL DIFF (56502)Indication: Abdominal pain, acute, left lower quadrant On: 24-Xrj-928525:10 Request METABOLIC PANEL, COMPREHENSIVE (41471)Indication: Essential hypertension On: 41-Ser-899458:47 Request HEPATIC FUNCTION PANEL (56413)Indication: Hypercholesterolemia On: :47 Request LIPID PANEL (84580)Indication: Hypercholesterolemia On: :47 Request Vitamin D Hydroxy (24993)Indication: Osteopenia On: :46 Request LIPID PANEL (41790)Indication: Hypercholesterolemia On: :38 Request HEPATIC FUNCTION PANEL (08374)Indication: Hypercholesterolemia On: :38 Request Metabolic Panel, Basic (54017)Indication: DISORDERS, ORGANIC, SLEEP RELATED LEG CRAMPS On: 00-Jsa-172576:17 Request URINALYSIS W/O MICRO (23439)Indication: Essential hypertension On: :48 Request TSH (56654)Indication: Essential hypertension On: :48 Request METABOLIC PANEL, COMPREHENSIVE (50355)Indication: Essential hypertension On: 0-Jch-269031:48 Request CBC WITH MANUAL DIFF (47272)Indication: Essential hypertension On: :48 Request LIPID PANEL (24681)Indication: Hypercholesterolemia On: :48 Request CBC WITH MANUAL DIFF (53246)Indication: Anemia, unspecified On: 74-Aro-31219:51 Request LIPID PANEL (46915)Indication: Hypercholesterolemia On: :31 Request HEPATIC FUNCTION PANEL (76765)Indication: Hypercholesterolemia On: :41 Request LIPID PANEL (75052)Indication: Hypercholesterolemia On: :41 Request SED RATE ERYTHROCYTE (55996)Indication: Headache (Renamed from Cephalalgia) On: 01-Bqh-95523:40 Request METABOLIC PANEL, COMPREHENSIVE (06422)Indication: Headache (Renamed from Cephalalgia) On: :39 Request CBC WITH MANUAL DIFF (11819)Indication: Headache (Renamed from Cephalalgia) On: :39 Request CBC WITH MANUAL DIFF (15396)Indication: EASY BRUISABILITY OF SKIN On: :59 Request PTT (ACTIVATED PARTIAL THROMBOPLASTIN TIME) (81839)Indication: EASY BRUISABILITY OF SKIN On: :59 Request PT (PROTHROMBIN TIME) (70837)Indication: EASY BRUISABILITY OF SKIN On: :59 Request HEPATIC FUNCTION PANEL (33282)Indication: Hypercholesterolemia On: :54 Request LIPID PANEL (62764)Indication: Hypercholesterolemia On: :54 Request Planned Encounters Medical; 2 Week FU - On: 03-May-2018 11:45 [facility] Catrina Perry DO, DO, [facility]; 4 Month FU - On: 16-Aug-2018 10:00 [facility] Catrina Perry DO, DO, Kathleen Planned Procedures CT OF NECK WITHOUT THEN WITH On: 09-Apr-2018 Intent INTRAVENOUS CONTRAST (00574)By: Comments: include thyroid Acacia Whaley CNP Ultrasound - ThyroidBy: Jovana OJEDA, On: 09-Apr-2018 Intent Acacia Wang Comments: attetion soft tissue rt side of neck Flu Vaccine (Quadrivalent) 27625Sx: On: 13-Mar-2018 Intent Ladi Max Comments: Lot #[id number]-L dltd, IMDose prefilled syringegiven by:SABINA Mclain reviewed and ABN signed FLAT PLATE (70973)By: Jovana OJEDA, On: 19-Dec-2017 Intent Acacia Wang ELECTROCARDIOGRAM, COMPLETE (ECG) On: 12-Dec-2017 Intent (00660)By: Catrina Perry DO Comments: nsr no acute chg Catrina Perry DO Bone Density StudyBy: Tessie Greene DO On: 10-May-2015 Intent A Comments: screening ADMINISTRATION OF INFLUENZA VIRUS On: 05-Feb-2015 Intent VACCINE (G0008)By: Tessie Greene DO A Flu Vaccine (Quadrivalent) 23188Hk: On: 05-Feb-2015 Intent Tessie Greene DO Comments: Lot:[id number]:09/01/15Dose:0.5mLRoute:IMSite:L DltdGiven By:MARTY signed MAMMOGRAM, SCREENING, BOTH BREAST On: 05-Feb-2015 Intent (88276)By: Tessie Greene DO Comments: reilly DEXA SCAN AXIAL SKELETON (60708)By: On: 05-Feb-2015 Intent Tessie Greene DO Comments: reilly Solu -Medrol Injection, 125 mg On: 09-Dec-2014 Intent (J2930)By: Acacia Whaley CNP Comments: lot:[id number]:route:IMdose:125MGsite: R glutGiven by: ROSANGELA Gamble MAMMOGRAM, SCREENING, BOTH BREAST On: 13-Mar-2014 Intent (88898)By: Tessie Greene DO ADMINISTRATION OF INFLUENZA VIRUS On: 13-Mar-2014 Intent VACCINE (G0008)By: Tessie Greene DO FLU VAC, SPLIT, >3 YEARS, INTRAMUSC On: 13-Mar-2014 Intent (74895)By: Tessie Greene DO Comments: lot: [id number]: 12-01-13site/route: L del/IMamt: 0.5mLVIS signed when applicableROSANGELA Villa Eprescribed prescriptions (G8553)By: On: 16-Sep-2013 Intent Tessie Greene DO Eprescribed prescriptions (G8553)By: On: 18-Mar-2013 Intent Libby Herndon FLU VAC, SPLIT, >3 YEARS, INTRAMUSC On: 20-Feb-2013 Intent (36867)By: Fallon Carranza Comments: Lot:[id number]:Dose:0.5mLRoute:IMSite:L DltdGiven By:MARTY signed IMMUNIZ ADMNIN, 1 VAC, SNGL/COMBO On: 20-Feb-2013 Intent (64845)By: Fallon Carranza MAMMOGRAM, SCREENING, BOTH BREASTS On: 31-Dec-2012 Intent (35933)By: Tessie Greene DO Eprescribed prescriptions (G8553)By: On: 11-Nov-2012 Intent Libby Herndon Eprescribed prescriptions (G8553)By: On: 23-Sep-2012 Intent Libby Herndon EKG (21844)By: Libby Herndon On: 21-Aug-2012 Intent Comments: ekg showed normal sinus rhythym, normal axis, no acute st/t wave changes Eprescribed prescriptions (G8553)By: On: 25-Jun-2012 Intent Tanya Bermudez LPN PNEUM VAC ADLT/IMUMNOSPR, SBC/INTRM On: 03-May-2012 Intent (63783)By: Tessie Greene DO Comments: Lot:[id number]:08-06-13Dose:0.5mLRoute:IMSite:L armGiven By:AGA ADMINISTRATION OF PNEUMOCOCCAL On: 03-May-2012 Intent VACCINE (G0009)By: Tessie Greene DO Eprescribed prescriptions (G8553)By: On: 03-May-2012 Intent Libby Herndon Mbaechvwc-Dxt-Ccnit (15173)By: Jovana On: 08-Apr-2012 Intent Acacia OJEDA DXA, BONE DENSITY, AXIAL SKELETON On: 30-Jan-2012 Intent (69637)By: Tessie Greene DO MAMMOGRAM, SCREENING, BOTH BREASTS On: 30-Jan-2012 Intent (20085)By: Tessie Greene DO IMMUNIZ ADMNIN, 1 VAC, SNGL/COMBO On: 30-Jan-2012 Intent (22804)By: Megan Phillips LPN Comments: Lot/Exp: [id number], 11/2011Given in L Dltd, IMPrefilled SyringeBy ROEL Guzman FLU VAC, SPLIT, >3 YEARS, INTRAMUSC On: 30-Jan-2012 Intent (41608)By: Megan Phillips LPN Breast Screening - BilateralBy: [...] DO, Tessie A On: 01-May-2011 Intent EKG (42120)By: Libby Herndon On: 01-May-2011 Intent Comments: ekg showed normal sinus rhythym, normal axis, no acute st/t wave changes poor r wave progression unchanged TDAP VACCINE >7 IM ([id number])By: On: 01-May-2011 Intent Libby Herndon Comments: work FLU VAC, SPLIT, >3 YEARS, INTRAMUSC On: 01-May-2011 Intent ([id number])By: Libby Herndon Comments: work DXA, BONE DENSITY, AXIAL SKELETON On: 09-Feb-2011 Intent ([id number])By: Monserrat Granado LPN MAMMOGRAM, SCREENING, BOTH BREASTS On: 09-Feb-2011 Intent ([id number])By: Monserrat Granado LPN Radiology - Ankle - LeftBy: C[place] On: 14-Dec-2010 Intent RUSTY Acacia Wang Comments: call wet read to Acacia Whaley Eprescribed prescriptions ([id number])By: On: 15-Nov-2010 Intent Jc DO Tessie A CT - Abdomen & PelvisBy: Jc DO, On: 26-Oct-2009 Intent Tessie A Comments: tomorrow call wet read EKG ([id number])By: Libby Herndon On: 30-Aug-2009 Intent Comments: do [...] DO, On: 07-Jun-2007 Intent Tessie A EKG ([id number])By: Jc BROUSSARD Tessie A On: 28-Apr-2007 Intent Comments: ordered to be done at the hospital CT - Brain/HeadBy: Tessie Greene DO On: 20-Mar-2007 Intent Comments: with and without contrast- please do stat and call wet read IMMUNIZ ADMNIN, 1 VAC, SNGL/COMBO On: 04-Apr-2006 Intent ([id number])By: Libby Herndon PNEUM VAC ADLT/IMUMNOSPR, SBC/INTRM On: 04-Apr-2006 Intent ([id number])By: Libby Herndon Comments: Lot #:Expiration date:Amount given:Route: IMSite given:LEFT DELTOIDGiven by: JESSICA Weinberg IMMUNIZ ADMNIN, 1 VAC, SNGL/COMBO On: 04-Apr-2006 Intent ([id number])By: Tessie Greene DO PNEUM VAC ADLT/IMUMNOSPR, SBC/INTRM On: 04-Apr-2006 Intent ([id number])By: Tessie Greene DO Planned Medications INJECTION, METHYLPREDNISOLONE [...] The patient does have durable power of energy attorney and living will. The patient has [...] The patient does have durable power of energy attorney and living will. The patient has noticed nothing from the geriatic depre ssion scale. Other providers contributing to the patient's care are other: (hearing and eye drLatrell herrera and Dr. Zamora). Note for Annual Medicare Exam: NO labwork done for today and pt had her well woman exam done with [facility]weight down trying - her bp up little [...] she hasnt needed too- more active in yarsanism and that has h elped- no gerd [...] to get back on track and joining [employer] at 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 Nichole at [facility]). 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
--- OUTSIDE RECORDS SUMMARY | 2018-08-24 15:57 | XMS RPT_ITS ---
:1940 Author Organization [facility] Support Name Relationship Address Phone R Unavailable Unavailable Unavailable HORACIO, MERLE Unavailable [address] + [place] [address] HORACIO, LAURI Unavailable [address] + [place] [address] R Unavailable Unavailable Unavailable HORACIO, MERLE Unavailable [address] + [place] [address] HORACIO, LAURI Unavailable [address] + [place] [address] R Unavailable Unavailable Unavailable HORACIO MERLE Unavailable [address] + [place] [address] HORACIO, LAURI Unavailable [address] + [place] [address] HORACIO, MERLE Unavailable Unavailable + HORACIO MERLE Unavailable Unavailable Unavailable R Unavailable Unavailable Unavailable HORACIO, MERLE Unavailable [address] + [place] [address] HORACIO, LAURI Unavailable [address] + [place] [address] R Unavailable Unavailable Unavailable HORACIO MERLE Unavailable [address] + [place] [address] HORACIO, LAURI Unavailable [address] + [place] [address] R Unavailable Unavailable Unavailable HORACIO, MERLE Unavailable [address] + [place] [address] HORACIO, LAURI Unavailable [address] + [place] [address] HORACIO MERLE Unavailable [address] + [place] [address] HORACIO MERLE Unavailable [address] [facility] [address] + [place] [address] R Unavailable Unavailable Unavailable HORACIORICHARDSON ASHLEYLE Unavailable [address] + [place] [address] LAURI LEONARD Unavailable [address] + [place] [id number] R Unavailable Unavailable Unavailable HORACIORICHARDSON ASHLEYLE Unavailable [address] + [place] [address] HORACIO, LAURI Unavailable [address] + [place] [phone] HORACIORICHARDSON ASHLEYLE Unavailable [address] [facility] [address] + [place] [address] HORACIORICHARDSON ASHLEYLE Unavailable [address] [facility] [address] + [place] [address] R Unavailable Unavailable Unavailable HORACIORICHARDSON ASHLEYLE Unavailable [address] + [place] [address] LAURI LEONARD Unavailable [address] [phone] [place] [address] Care Team Providers Name Role Phone ALICIA OWENS Attending Unavailable VICKY, CATRINA K Primary Care Unavailable HI LU Attending Unavailable VICKY, CATRINA K Primary Care Unavailable BLAS SCHMIDT Attending Unavailable VICKY, CATRINA K Primary Care Unavailable ALICIA OWENS Attending Unavailable VICKY, CATRINA K Primary Care Unavailable VICKY, CATRINA DO Consulting Unavailable CARLITA ALISHA DPM Primary Care Unavailable LAISHA ZAZUETA DPM Attending Unavailable CARLITA ALISHA DPM Admitting Unavailable PROVIDER, UNKNOWN Consulting Unavailable Vicky DO, Catrina Attending Unavailable Fast DO, Tessie A Referring Unavailable Vicky DO, Catrina Consulting Unavailable Kaleb Pérez Attending Unavailable Daniel Rollins Referring Unavailable WartmannDaniel Attending Unavailable Wartmann Daniel Referring Unavailable Vicky, Catrina Primary Care Unavailable Daniel Rollins Attending Unavailable Wartmann Daniel Referring Unavailable Vicky, Catrina Primary Care Unavailable Daniel Rollins Attending Unavailable Wartmann, Daniel Referring Unavailable Vicky, Catrina Primary Care Unavailable Acacia Whaley Attending Unavailable Vicky, Catrina Primary Care Unavailable Kaleb Pérez Attending Unavailable Kaleb Pérez Referring Unavailable Vicky, Catrina Primary Care Unavailable Acacia Whaley Attending Unavailable Acacia Whaley Referring Unavailable Catrina Perry Primary Care Unavailable Mary Grace Stringer Attending Unavailable Acacia Whaley Attending Unavailable Acacia Whaley Referring Unavailable Catrina Perry Primary Care Unavailable PROBLEMS PROBLEMS DATE TYPE CONDITION / CODE ATTENDING STATUS SOURCE Unknown R94.31 - Abnormal Kaleb Pérez Active [place] 9 electrocardiogram Community [ECG] [EKG] / Hospital R94.31(ICD-10) Repository Unknown R22.1 - Localized [facility], [facility] 8 swelling, mass and Daniel Community lump, neck / Hospital R22.1(ICD-10) Repository Admitting Trochanteric bursitis, ROMAN, [facility] 8 diagnosis left hip / ALICIA PEDERSON Beny M70.62(ICD-10) Repository Admitting Hyperlipidemia, SCHMIDT, 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 unspecified / [place] [facility] E78.5(ICD-10) Repository Admitting Supraventricular SCHMIDT, 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 tachycardia / [facility] [facility] I47.1(ICD-10) Repository Admitting Essential (primary) SCHMIDT, 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 hypertension / [facility] [facility] I10(ICD-10) Repository Unknown Z79.899 - Other long MoodKaleb sprague Active [place] 8 term (current) drug Community therapy / Hospital Z79.899(ICD-10) Repository Unknown E78.5 - MoodKaleb sprague Active [place] 8 Hyperlipidemia, Community unspecified / Hospital E78.5(ICD-10) Repository Unknown I10 - Essential MoodKaleb sprague Active [place] 8 (primary) hypertension Community / I10(ICD-10) Hospital Repository Admitting Bilateral primary [facility] 8 diagnosis osteoarthritis of knee ALICIA PEDERSON Beny / M17.0(ICD-10) Repository Admitting Pain in right knee / ROMAN, [facility] 8 diagnosis M25.561(ICD-10) ALICIA PEDERSON Beny Repository Admitting Pain in left knee / ROMAN, Active [place] [address] diagnosis M25.562(ICD-10) ALICIA PEDERSON Three Repository PROCEDURES PROCEDURES No Procedure Records FoundRESULTS RESULTS MASS (DEFINE AREA) Observed: 06/18/2018 Status: F Source: [place] 2:10 PM [facility] Patient: CLAUDIA LEONARD : 1940 (77/F) Acct Num: [id number] Phys: Ria PLASCENCIA,Scio Unit Num: [id number] Loc: LABSPEC Specimen: [id number] Received: 06/19/181535 Spec Type: Mass TISSUES 1 TISSUES: Neck, NOS COMMENT Immunohistochemistry ([id number]) supports the above diagnosis. The differential diagnosis includes a benign vascular lesion with associated organizing hematoma and associated reactive change. Reference is made to the patient's previous fine needle aspiration from ([id number]) in which macrophages consistent with benign cyst contents were identified. GROSS DESCRIPTION Received is one container labeled with the patient's name and not further designated. The specimen consists of a piece of pink, congested soft tissue measuring 2 x 1.5 x 1.2 cm. The specimen is inked, serially sectioned and reveals hemorrhagic cut surfaces. The entire specimen is submitted in two cassettes. / SJ:maritza 06/20/18 TC:5 CPT: 57853 HEADER OPERATION: Excision deep right neck mass PRE-OP DIAGNOSIS: Localized swelling mass and lump neck TISSUE SUBMITTED: Right neck mass MICROSCOPIC DESCRIPTION Slides are reviewed. 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 No evidence of malignancy. AM:maritza 06/21/18 Signed Janes Arellano, 06/25/18 <signature on file> Performed By: #### PMASS #### [facility] [address] [place], [address] IMMUNOHISTOCHEMISTRY Observed: 06/18/2018 Status: F Source: [place] 12:00 AM [facility] Patient: CLAUDIA LEONARD : 1940 (77/F) Acct Num: [id number] Phys: Ria PLASCENCIA,Scio Unit Num: [id number] Loc: LABSPEC Specimen: [id number] Received: 06/24/183 Spec Type: IMMUNO TISSUES 1 TISSUES: Neck, NOS SPECIMEN INFORMATION: Tissue Source: Right neck mass Clinical Info: Localized swelling mass and lump, neck Specimen Number: [id number] block 1 CPT code: 93058, 00824 x9 METHODOLOGY: Deparaffinized sections of prefer/formalin-fixed tissue or PAP/DQ stained slides are incubated with monoclonal/polyclonal antibodies/oligonucleotide probes. Localization is made via biotin free immunoperoxidase method. Appropriate controls are performed and reacted as expected. Results on target cell population are indicated in the following table: RESULTS: ANTIBODY / CLONE RESULT Block 1 AE1-3 (AE1/AE3/PCK26) negative Actin (1A4) positive, focal Vimentin (V9) positive CD31 (MARYELLEN/70A) positive CD34 (QBEnd-10) positive Factor VIII (R Ag) positive Macro (HAM-56) positive Ki-67 (30-9) negative JOAQUÍN (E29) negative P53 (DO-7) negative These tests were developed and their performance characteristics determined by [facility]. They may not have been cleared or approved by the U.S. Food and Drug Administration. The FDA has determined that such clearance or approval is not necessary. INTERPRETATION: Right neck mass, excision: Suggestive of benign vascular lesion with associated organizing hematoma. AM:maritza 06/26/18 PHYSICIAN AND INSTITUTION [place] [phone] Signed Janes Arellano, DO 06/26/18 <signature on file> Performed By: #### PIMM #### [facility] [address] [place] [address]. [place], [place], [address] 12 LEAD ELECTROCARDIOGRAM Observed: 06/14/2018 Status: F Source: [place] 1:33 PM [facility] Cardiovascular Services [address] [place] [place] [address] 12 Lead EKG 06/14/18 1024 MR#: [id number] Acct: [id number] Name: CLAUDIA LEONARD Rep #: [id number] : 1940 77 From: Kaleb Pérez MD Attending Dr: Ricardo Rollins MD Status: REG CLI Ordering Dr: Daniel Rollins MD Date: 06/14/18 Location: LAB Sex: F C Admitted: Test Reason : PREOP Blood Pressure : / mmHG Vent. Rate : 048 BPM Atrial Rate : 048 BPM P-R Int : 158 ms QRS Dur : 090 ms QT Int : 454 ms P-R-T Axes : 064 030 056 degrees QTc Int : 405 ms Marked sinus bradycardia Possible Left atrial enlargement Abnormal ECG Confirmed by BETO PLASCENCIA, KALEB ([id number]), online content editor JOSE M TERRAZAS ([id number]) on 06/14/2018 1:33:13 PM Referred By: Go Rollins Confirmed By:KALEB PÉREZ MD 06/14/18 1333 Date Kaleb Pérez MD CC: Ricardo Rollins MD; Catrina Perry DO Signed BASIC METABOLIC Collected: 06/14/2018 Status: F Source: [place] PROFILE (BMP) 10:11 AM [facility] TYPE CODE TESTS RESULT OUT OF RANGE REFERENCE UNITS LAB L501.0100 74-106 mg/dL Normal GLU 89 Result Comment: Please note revised GLUCOSE reference range effective 2017. LAB L501.1000 7-18 mg/dL Normal BUN 17 LAB L501.1100 0.55-1.02 mg/dL Normal CREAT,SERUM 0.62 Result Comment: The validity of the calculated GFR AND GFRAA in patients over 70 years has not been determined. Clinical correlation is essential. LAB L501.1110 >60 mL/min Normal EST GFR 101 Result Comment: Non- GFR Calc LAB L501.1115 >60 mL/min Normal EST GFR - AA 122 Result Comment: GFR Calc LAB L501.1300 10-20 RATIO High BUN/CRE 27.6 LAB L501.2200 8.5-10.1 mg/dL CA Normal 9.0 LAB L501.5300 136-145 mmol/L NA Normal 138 LAB L501.5600 3.5-5.1 mmol/L K Normal 3.8 LAB L501.5900 98-107 mmol/L CL Normal 103 LAB L501.6100 21.0-32.0 mmol/L Normal CO2 29.0 LAB L501.6200 5-15 Normal GAP 6 Performed By: #### L500.2500 #### [facility] [address] [place], [address] FOOT COMPLETE RT Observed: 04/19/2018 Status: F Source: [facility] 9:26 AM [facility] REPOSITORY [place] [phone] Patient: CLAUDIA LEONARD Phone#: : 1940 Age: 77 Gender: F Pt. Type: Out Account: [id number] Location: Ordering: ALISHA ZAZUETA Exam Date: 04/19/2018/9:03 Family Phys: CATRINA PERRY Charge Code: 560597 Physician: [place] Order #: [id number] DLP Dose#: PROCEDURE: X-RAY FOOT RT COMPLETE MIN 3 VIEWS COMPARISON: None. INDICATIONS: Pain FINDINGS: BONES: Mild deformity of the head of the first metatarsals consistent with remote surgery. Mild degenerative changes are present at the interphalangeal joints. There is no evidence of acute. SOFT TISSUES: Negative. No visible soft tissue swelling. EFFUSION: None visible. OTHER: Negative. CONCLUSION: No acute disease. Dictated by: Sherri Chidls MD on 04/19/2018 at 9:43 Approved by: Sherri Childs MD on 04/19/2018 at 9:43 ASP DONE IN LAB Observed: 04/17/2018 Status: F Source: [place] 12:00 AM [facility] Patient: CLAUDIA LEONARD : 1940 (77/F) Acct Num: [id number] Phys: Ria PLASCENCIAScio Unit Num: [id number] Loc: LAB Specimen: [id number] Received: 04/17/18 - 1238 Spec Type: ASP HERE TISSUES 1 TISSUES: Neck, NOS COMMENT The specimen is evaluated at the time of FNA by Dr. Arellano. Immediate Evaluation = Macrophages consistent with benign cyst contents. The specimen contains macrophages, degenerating cellular debris and amorphous proteinaceous material. The lesion may represent a degenerating cyst. Clinical correlation is suggested. Case has been reviewed in consultation with Dr. [place] who concurs with the above diagnosis. IDC:SJ CYTOLOGY GROSS Received is 0.5 ml of reddish fluid labeled with the patient's name, and designated Right neck mass. 5 imprints and 3 paps are made from the submitted fluid and the rest is added to CytoLyt for cell block preparation. Submitted for cytology study. TC: 5 CPT: 48158, 475819, 33469, 40790 CYTOLOGY STUDY Slides are reviewed. DIAGNOSIS CYTOLOGY Fine needle aspiration, right neck mass (smear, cell block): Negative for malignant cells. See comment. AM:zeb 04/18/18 HEADER OPERATION: FNA, right neck mass PRE-OP DIAGNOSIS: Right neck mass TISSUE SUBMITTED: Right neck mass Signed Janse Adan 04/18/18 <signature on file> Performed By: #### PASPOS #### [facility] [address] [place] [address], [address] CREATININE FINGERSTICK Collected: 04/10/2018 Status: F Source: [place] 2:47 PM [facility] TYPE CODE TESTS RESULT OUT OF RANGE REFERENCE UNITS LAB L9100.0210 0.55-1.02 mg/dL Normal CREATININE WB 0.8 LAB L9100.0220 >60 mL/min EGFR WB Normal > 60.0000 Performed By: #### L9100.0200 #### [facility] Point of Care [address] [place] [address] SOFT TISSUE NECK WITH Observed: 04/10/2018 Status: F Source: [place] CONTRAST 2:31 PM [facility] Imaging Services [address] [place] [place] [address] Soft Tissue Neck WITH Contrast MR#: [id number] Acct: [id number] Name: CLAUDIA LEONARD Rep #: [id number] : 1940 F 77 From: Michael Espinoza MD PCP: Catrina Perry DO Status: REG CLI Study: Soft Tissue Neck WITH Contrast Date of Exam: 04/10/18 Exam# [id number] Ordering Dr: Acacia Whaley SWING DRIVER-C ADDENDUM by Michael Espinoza MD on 04/11/18 at 0847 ADDENDUM This is an addendum report. There is a 1.9 cm x 1.7 cm x 2.2 cm rounded soft tissue mass in the anterior aspect of the right-sided neck adjacent to the thyroid cartilage. This corresponds to the palpable abnormality. This may represent an enlarged lymph node. Electronically Signed: Michael Espinoza MD at 8:47 EST Tel [phone], Service support , 04/11/18 0847 Date cc: Acacia Whaley NP; Catrina Perry DO * Signed ADDENDUM by Michael Espinoza MD on 04/11/[address]/Soft Tissue Neck WITH Contrast 04/11/18 0854 Date cc: Acacia Whaley NP; Catrina Perry DO * Signed STUDY: CT SOFT TISSUE NECK WITH CONTRAST REASON FOR EXAM: Female, 77 years old. 3 day history of a Soft tissue mass/lump anterior aspect of the right side of the neck. RADIATION DOSAGE (If Supplied By Facility): CTDIvol [...] FINDINGS: Normal bilateral parotid glands. Normal bilateral recreation officer spaces. Normal bilateral parapharyngeal spaces. Normal bilateral carotid spaces. Normal bilateral sublingual and submandibular glands and spaces. Normal visualized nasopharynx. Normal retropharyngeal space. Normal perivertebral space. Normal visualized bilateral faucial tonsils. The visualized tongue, tongue base and oropharynx are normal. The visualized cervical lymph nodes (levels I-) are within normal size limits, and maintain normal morphology. There is no demonstrated solid or cystic mass lesion. There is no abnormal contrast enhancement. Normal epiglottis, bilateral vallecula and hypopharynx. The pre-epiglottic and paraglottic adipose spaces are normal. Normal visualized bilateral piriform sinuses, aryepiglottic folds, vocal cords, and arytenoid-cricoid articulations. Normal subglottic trachea. Normal bilateral lobes of the thyroid gland. Normal visualized pulmonary apices. Minimal mucosal thickening along the lateral wall of the right maxillary sinus. There is multilevel degenerative changes of the cervical spine. CT/Soft Tissue Neck WITH Contrast IMPRESSION: No mass lesion is seen. Minimal degree of mucosal thickening along the lateral wall of right maxillary sinus. Electronically Signed: Michael Espinoza MD at 15:37 EST Tel [phone], Service support , CC: Acacia Whaley NP; Catrina Perry DO Pit Slagman: Signed THYROID Observed: 04/09/2018 Status: F Source: [place] 3:06 [facility] RE[facility] Imaging Services [address] [place] [address] Thyroid MR#: [id number] Acct: [id number] Name: CLAUDIA LEONARD Rep #: [id number] : 1940 F 77 From: Michael Espinoza MD PCP: Catrina Perry DO Status: REG CLI Study: Thyroid Date of Exam: 04/09/18 Exam# [id number] Ordering Dr: Acacia Whaley SWING DRIVER-Nicole STUDY: THYROID ULTRASOUND REASON FOR EXAM: Female, 77 years old. Right cervical palpable [...] mm x 6 mm x 6 mm well-defined hypoechoic solid nodule in the midpole of the left lobe. ISTHMUS: The isthmus measures 1.0 mm. The palpable abnormality lies on the lateral side of the right lobe of the thyroid. It measures 2.7 cm x 2.9 cm x 0.9 [...] recommended for further evaluation. Electronically Signed: Michael Espinoza MD at 15:55 EST Tel [phone], Service support , CC: Acacia Whaley SWING DRIVER; Catrina Perry DO Pit Slagman: Signed CBC W/DIFF, AUTOMATED Collected: 12/20/2017 Status: F Source: [place] 7:40 AM [facility] Order Comment: DR PÉREZ ORDERED LIPID/LIVER DR PERRY ORDERED TSH/CBCD/LIPID/CMP/UA/MIACRE TYPE CODE TESTS RESULT OUT OF RANGE REFERENCE UNITS LAB L100.1000 4.4-11.0 K/mm3 Normal WBC 5.8 LAB L100.1200 4.2-5.4 M/mm3 Normal RBC 4.23 LAB L100.1300 12.0-15.0 g/dl Normal HGB 12.9 LAB L100.1400 37-47 % Normal HCT 38.8 LAB L100.1500 81-99 fL Normal MCV 91.7 LAB L100.1600 27.0-32.0 pg Normal MCH 30.5 LAB L100.1700 32-36 g/gl Normal MCHC 33.2 LAB L100.1810 11.6-14.6 % Normal RDW CV 13.2 LAB L100.1820 35.1-43.9 fl Normal RDW SD 43.6 LAB L100.1900 150-450 K/mm3 Normal PLT 262 LAB L100.2000 6.2-12.0 fl Normal MPV 11.5 LAB L100.2100 47-70 % Low NEUT% 45.6 LAB L100.2200 19-41 % Normal LY% 37.2 LAB L100.2300 0-10 % High MONO% 11.0 LAB L100.2400 0-5 % Normal EO% 4.0 LAB L100.2500 0-1 % High BASO% 2.2 LAB L100.2550 0.0-0.9 % Normal IM GRAN % 0.000 Result Comment: IG% - Immature Granulocytes (promyelocytes, myelocytes and metamyelocytes) > 1% indicates that a LEFT SHIFT is Present. LAB L100.2620 2.0-7.7 X10 3/uL Normal Absolute Neut 2.7 LAB L100.2720 0.83-4.51 X10 3/ul Normal Absolute Lymph 2.16 LAB L100.4500 Normal SMEAR COMMENT SCANNED Performed By: #### L100.0100 #### [facility] [address] [place], [address] COMPREHENSIVE METABOLIC Collected: 12/20/2017 Status: F Source: [place] 7:40 AM [facility] Order Comment: Order Date: 03/13/17 Order Info: [id number] - *Hepatic Function Panel Order Info: [id number] - *Lipid Profile CC PCP Comments: 12 hours fasting, may have water. DR PÉREZ ORDERED LIPID/LIVER DR PERRY ORDERED TSH/CBCD/LIPID/CMP/UA/MIACRE TYPE CODE TESTS RESULT OUT OF RANGE REFERENCE UNITS LAB L501.0100 74-106 mg/dL Normal GLU 86 Result Comment: Please note revised GLUCOSE reference range effective 2017. LAB L501.1000 7-18 mg/dL Normal BUN 17 LAB L501.1100 0.55-1.02 mg/dL Normal CREAT,SERUM 0.72 Result Comment: The validity of the calculated GFR AND GFRAA in patients over 70 years has not been determined. Clinical correlation is essential. LAB L501.1110 >60 mL/min Normal EST GFR 84 Result Comment: Non- GFR Calc LAB L501.1115 >60 mL/min Normal EST GFR - AA 102 Result Comment: GFR Calc LAB L501.1300 10-20 RATIO High BUN/CRE 23.7 LAB L501.1500 6.4-8.2 g/dL T Normal PROT 7.3 LAB L501.1800 3.2-5.0 g/dL Normal ALB 3.6 LAB L501.1950 2.2-4.2 g/dL Normal GLOB 3.7 LAB L501.2000 0.9-2.4 RATIO Normal A/G 1.0 LAB L501.2200 8.5-10.1 mg/dL CA Normal 9.0 LAB L501.4100 15-37 U/L Normal AST 27 LAB L501.4305 45-117 U/L Normal ALK P 63 LAB L501.4405 13-56 U/L Normal ALT 28 LAB L501.4600 0.20-1.00 mg/dL T Normal BILI 0.30 LAB L501.5300 136-145 mmol/L NA Normal 140 LAB L501.5600 3.5-5.1 mmol/L K Normal 4.1 LAB L501.5900 98-107 mmol/L CL Normal 103 LAB L501.6100 21.0-32.0 mmol/L Normal CO2 32.0 LAB L501.6200 5-15 Normal GAP 5 Performed By: #### L500.4050, L501.4700, L501.9520 #### [facility] [address] [place], [address] BILIRUBIN, DIRECT Collected: 12/20/2017 Status: F Source: [place] 7:40 AM [facility] Order Comment: Order Date: 03/13/17 Order Info: [id number] - *Hepatic Function Panel Order Info: [id number] - *Lipid Profile CC PCP Comments: 12 hours fasting, may have water. DR PÉREZ ORDERED LIPID/LIVER DR PERRY ORDERED TSH/CBCD/LIPID/CMP/UA/MIACRE TYPE CODE TESTS RESULT OUT OF RANGE REFERENCE UNITS LAB L501.4700 0.00-0.30 mg/dL Normal D BILI 0.11 Performed By: #### L500.4050, L501.4700, L501.9520 #### [facility] [address] [place], [address] THYROID STIM HORMONE Collected: 12/20/2017 Status: F Source: [place] (TSH) 7:40 AM [facility] Order Comment: Order Date: 03/13/17 Order Info: [id number] - *Hepatic Function Panel Order Info: [id number] - *Lipid Profile CC PCP Comments: 12 hours fasting, may have water. DR PÉREZ ORDERED LIPID/LIVER DR PERRY ORDERED TSH/CBCD/LIPID/CMP/UA/MIACRE TYPE CODE TESTS RESULT OUT OF RANGE REFERENCE UNITS LAB L501.9520 0.358-3.74 uIU/mL Normal TSH 1.84 Performed By: #### L500.4050, L501.4700, L501.9520 #### [facility] [address] [place], [address] LIPID PROFILE Collected: 12/20/2017 Status: F Source: [place] 7:40 AM [facility] Order Comment: Order Date: 03/13/17 Order Info: [id number] - *Hepatic Function Panel Order Info: [id number] - *Lipid Profile CC PCP Comments: 12 hours fasting, may have water. DR PÉREZ ORDERED LIPID/LIVER DR PERRY ORDERED TSH/CBCD/LIPID/CMP/UA/MIACRE TYPE CODE TESTS RESULT OUT OF RANGE REFERENCE UNITS LAB L501.4900 200 mg/dL Normal CHOL 105 Result Comment: <200 mg/dL Desirable 200-240 mg/dL Borderline >240 mg/dL High Risk LAB L501.5000 mg/dL Normal TRIG 54 Result Comment: The drugs N-Acetylcysteine and Metamizole may falsely depress this assay. Serum Triglycerides Reference Interval Normal <150 mg/dL Borderline high 150 - 199 mg/dL High 200 - 499 mg/dL Very High > or = 500 mg/dL LAB L501.6400 mg/dL Normal HDL 43 Result Comment: The drugs N-Acetylcysteine and Metamizole may falsely depress this assay. Reference Range HDL <40 mg/dL Low HDL Cholesterol HDL >or= 60 mg/dL High HDL Cholesterol LAB L501.6500 0-130 mg/dL Normal LDL 51 LAB L501.6600 5-40 mg/dL Normal VLDL 11 Performed By: #### L500.4100 #### [facility] [address] [facility] [place], [address] MICROALB:CREAT Collected: 12/20/2017 Status: F Source: [place] RATIO,RANDOM UR 7:40 AM [facility] Order Comment: DR PÉREZ ORDERED LIPID/LIVER DR PERRY ORDERED TSH/CBCD/LIPID/CMP/UA/MIACRE TYPE CODE TESTS RESULT OUT OF RANGE REFERENCE UNITS LAB L501.1200 NO RANGE EST. mg/dL Normal UR CREAT 55.10 LAB L502.0500 NO RANGE EST. mg/L Normal 5.3 MICROALBUMIN ,UR LAB L502.0600 <30 mg/g CRE mg/g CRE Normal 9.7 MALB:CREAT Performed By: #### L502.0250 #### [facility] [address] [facility] [place], [address] URINALYSIS, COMPLETE Collected: 12/20/2017 Status: F Source: [place] 7:40 AM [facility] Order Comment: DR PÉREZ ORDERED LIPID/LIVER DR PERRY ORDERED TSH/CBCD/LIPID/CMP/UA/MIACRE How was Urine Obtained? CLEAN CATCH TYPE CODE TESTS RESULT OUT OF RANGE REFERENCE UNITS LAB L400.3000 Yellow COLOR Normal Yellow LAB L400.3050 Clear Normal CLARITY Clear LAB L400.3200 Normal mg/dl Normal GLUCOSE, UR Normal LAB L400.3300 Negative mg/dL Normal BILIRUBIN URINE Negative LAB L400.3400 Negative mg/dl Normal KETONE UR Negative LAB L400.3465 1.002-1.030 Normal SP.GR. DIPSTX 1.005 LAB L400.3550 5.0 - 8.0 pH UR Normal 7.0 LAB L400.3600 Negative mg/dl PROT Normal DIPSTX Negative LAB L400.3700 Normal mg/dl Normal UROBILI Normal LAB L400.3750 Negative Normal NITRITE UR Negative LAB L400.3780 Negative /ul High 10 OCCULT BLOOD-UR LAB L400.3800 Negative /ul High LEUK 25 ESTERASE LAB L400.4050 0-5 /hpf WBC Normal 0-5 SEEN LAB L400.4100 0-5 /hpf Normal RBC-UA 0-5 SEEN LAB L400.4150 5-10 /hpf SQUAM 0 Normal EPI SEEN LAB L400.4300 None Seen /hpf 0 Normal BACTERIA SEEN LAB L400.4350 <or=2+ /hpf 0 Normal MUCUS, URINE SEEN Performed By: #### L400.0001 #### [facility] [address] [place], [address] CNCO Observed: 12/20/2017 Status: COMPLETED Source: ROLANDO 12:00 AM [facility] REPOSITORY Letter Text Daryl Vela MD [facility] [address] [place] [address] Claudia Leonard December 20, 2017 Claudia Leonard [address] [facility] [address] Dear Claudia Leonard: Due to a change in your provider's schedule, it has become necessary to reschedule the following appointment: Daryl Vela MD Date: 02/05/2018 Time: 11:00 AM We apologize for any inconvenience to you, however your provider would still like to see you. Please call us at [phone] to reschedule your appointment. Sincerely, Appointment Staff ABDOMEN SINGLE VIEW Observed: 12/19/2017 Status: F Source: RIDDHI 2:05 PM [facility] Imaging Services [address] [place] [address] Abdomen Single View MR#: [id number] Acct: [id number] Name: CLAUDIA LEONARD Rep #: [id number] : 1940 F 76 From: Chris Rachel MD PCP: Catrina Perry DO Status: REG CLI Study: Abdomen Single View Date of Exam: 12/19/17 Exam# [id number] Ordering Dr: Acacia Whaley STUDY: X-RAY - ABDOMEN/PELVIS REASON FOR EXAM: Female, 76 years old. Lower abdominal pain and bloating. TECHNIQUE: Single AP view of the abdomen / pelvis. COMPARISON: None. FINDINGS: Normal visualized lung bases. There is a moderate amount of colonic fecal material. There are nonspecific gaseous small bowel loops and colon. Normal soft tissue structures. There are diffuse degenerative changes of the visualized lumbar spine. RAD/Abdomen Single View IMPRESSION: Fecal distention. Nonspecific gas pattern. Electronically Signed: Chris Rachel MD at 3:56 EDT Tel , Service support , CC: Acacia Whaley SWING DRIVER; Catrina Perry DO Pit Slagman: Signed XR KNEES BILATERAL 4+ Observed: 12/10/2017 Status: F Source: [facility] (SPECIFY VIEWS 12:00 AM THREE REPOSITORY IN COMMENTS) X-rays of the left and right knee 4 views standing AP 45? PA standing lateral merchant film obtained due to pain reveals a left knee showing severe end-stage lateral compartment fayk-vl-hzlr deformity and lateral compartment osteophytes with end-stage patellofemoral degenerative changes the right knee shows tricompartmental degenerative changes with osteophytes throughout the medial lateral compartment and patellofemoral compartment left knee shows acquired valgus deformity right knee shows acquired varus deformity Dictated by: ALICIA OWENS on SunDec 10, 2017 1:02:29 PM EDT Transcribed by: ALICIA OWENS on SunDec 10, 2017 1:02:29 PM EDT Finalized by: ALICIA OWENS on SunDec 10, 2017 1:02:29 PM EDT ALLERGIES ALLERGIES DATE TYPE / CODE NAME / CODE REACTION SEVERITY SOURCE 10/16/2017 Drug sulfamethoxazo Nausea [place] Allergy/795945806(S le/N903161625( Community NOMED CT) RXNORM) Hospital Repository 10/16/2017 Drug trimethoprim/F Nausea [place] Allergy/570068942(S 502005672(RXNO Community NOMED CT) RM) Hospital Repository 10/16/2017 Miscellaneous pneumonia Red, inflamed SV [place] Allergy/418320371(S vacine reaction at [facility] NOMED CT) injection site Hospital Repository Drug NO KNOWN [facility] Class/977911366(SNO ALLERGIES Three MED CT) Repository ENCOUNTERS ENCOUNTERS ADMIT/DISCHARGE ACCOUNT NUMBER ADMITTING ENCOUNTER LOCATION SOURCE CLASS 06/19/2018 [id number] Ambulatory [facility] ding:LABSPEC Repository 06/14/2018 618 Ambulatory Building:[facility] [place] Practices Repository 06/14/2018 [id number] Ambulatory BMSBuilding: [facility] Repository 06/14/2018 [id number] Ambulatory [facility] ding:LAB Repository 04/19/2018/04/19/20 [id number] ALISHA ZAZUETA Ambulatory [address] Repository 04/17/2018 [id number] Ambulatory [facility] ding:LAB Repository 04/10/2018 [id number] Ambulatory [facility] ding:CT Repository 04/09/2018 [id number] Ambulatory [facility] ding:OPUS Repository 04/01/2018/04/01/20 [id number] Ambulatory Building:[facility] [place] [address] SP[address]MEDAM[address] Three ER Repository 01/02/2018/01/03/20 [id number] Ambulatory Building:[facility] [place] [address] HVPGAHANNAAM Three BPKWY Repository 12/20/2017 [id number] Ambulatory [facility] ding:MTLAB Repository 12/19/2017 [id number] Ambulatory [facility] ding:MTRAD Repository 12/10/2017/12/11/19 [id number] Amb[facility] [place] [address] [facility] Repository 12/10/2017 [id number] [facility] ER Repository 10/16/2017 [id number] Ambulatory BMSBuilding: [facility] Repository PAYERS PAYERS ENCOUNTER GUARANTOR PAYER SUBSCRIBER SOURCE 06/19/2018 CLAUDIA MONSON Primary CLAUDIA Valenzuela SAYERSDOB: [place] [address] [address] Insurance:MEDICARE [id number] Community [id number]: (419) PART A BPolicy Number: [facility] [phone] (HP) [id number] Repository Date:2018-06-19 06/19/2018 Secondary CLAUDIA AMOSB: [place] Insurance:HUMANA [id number] Number: Repository [id number] Date:8247-76-74UZ[address] [address]ZP: 06/19/2018 Tertiary NOT GIVENUNK [place] Insurance:SELF PAY [facility] Number: Effective Repository Date:2018-06-19 06/14/2018 Claudia Valenzuela Primary Claudia Valenzuela SayersDOB: [place] Practices SayersDOB: Insurance:MedicarePoli [id number] Repository cy Number: [id number], [place] [address] [address], [place] SB50Vbtgzbgxt [address]Osf: [phone]: ([phone]) Date:3265-26-02Rneu [phone] ([phone] (HP) Name:[facility] [place] [address], [place] [address]AB: 06/14/2018 Secondary Claudia Valenzuela DandreB: [place] Practices Insurance:Humana/Suppl [id number] Repository ement PlanPolicy [address] [address], [place] Number: [id number]: [id number] ~(4 Date:8824-97-48Noes (HP) Name:O [place] [address] [place] [address]LB: 06/14/2018 Tertiary Claudia Bianca DandreB: [place] Practices Insurance:CBCA/[facility], [id number] Repository WCHPolicy Number: Lyndon[address] [place] [address] [id number] [address]Red: Date:2005-06-04 - ~(6225-59-69Dolq (HP) Name:O [place], [place] [address]HH: 06/14/2018 Tertiary Claudia Valenzuela DandreB: [place] Practices Insurance:Health [id number] [facility]ository [facility] [address] [address], [place] Number: [address]Azb: [id number] ~(4 Date:2006-06-04 (HP) 8586-19-27Hsqw Name:O [place] [address]IB NOT USE, [place], [place] [address]XG: 06/14/2018 CLAUDIA MONSON Primary CLAUDIA AMOSB: [place] [address] [address] Insurance[place]ARE [id number] [facility] [id number]: (419) PART A BPolicy Number: [facility] [phone] () [id number] Repository Date:2018-06-14 06/14/2018 Secondary CLAUDIA AMOSB: [place] Insurance:HUMANA [id number] Number: Repository [id number] Date:6286-94-32EH[address] [address]QH: 06/14/2018 Tertiary NOT GIVENUNK [place] Insurance:SELF PAY [facility] Number: Effective Repository Date:2018-06-14 06/14/2018 CLAUDIA MONSON Primary CLAUDIA LEONARDDOB: [place] [address], [place] Insurance[place]ICARE [id number] Community [id number]: (419) PART A BPolicy Number: [place] [id number] () [id number] Repository Date:2018-06-14 06/14/2018 Secondary CLAUDIA AMOSB: [place] Insurance:HUMANA [id number] Hospital Hospital Number: Repository [id number] Date:0965-33-67PT[address] [address]YQ: 06/14/2018 Tertiary NOT GIVENUNK [place] Insurance:SELF PAY [facility] Number: Effective Repository Date:2018-06-14 04/19/2018 CLAUDIA KNOX Primary CLAUDIA LEONARDB: Jaison Almazan SAYERSDOB: Insurance:MEDICARE [id number] Memorial [id number] [place] [address] [place] [address] Number: [address], [place] Repository [address]Cvv: ([phone]) [id number] [phone] Date:Plan Name: 04/19/2018 Secondary CLAUDIA AMOSB: Jaison Masseyantoinette Insurance:HUMANA [id number] [place] [address] [address], [place] [address] Repository Number: [id number] Date:Plan Name: 04/17/2018 CLAUDIA MONSON Primary CLAUDIA Valenzuela SAYDIONB: [place] [address] [id number] Community [id number]: (419) PART A BPolicy Number: [place] [id number] () [id number] Repository Date:2018-04-15 04/17/2018 Secondary CLAUDIA LEONARDDOB: [place] Insurance:HUMANA [id number] Hospital Hospital Number: Repository [id number] Date:8241-55-20[address] [place] [address]WP: 04/17/2018 Tertiary NOT GIVENUNK [place] Insurance:SELF PAY [facility] Number: Effective Repository Date:2018-04-15 04/10/2018 CLAUDIA LEONARD150 Primary CLAUDIA Valenzuela SAYERSDOB: [place] [address] [address] [id number] Community [id number]: (419) PART A BPolicy Number: [facility] [phone] () [id number] Repository Date:2018-04-09 04/10/2018 Secondary CLAUDIA LEONARDDOB: [place] Insurance:HUMANA [id number] [facility] Hospital Number: Repository [id number] Date:5653-07-70[place] [address]WP: 04/10/2018 Tertiary NOT GIVENUNK [place] Insurance:SELF PAY [facility] Number: Effective Repository Date:2018-04-09 04/09/2018 CLAUDIA GARCIAERS150 Primary CLAUDIA Valenzuela SAYERSDOB: [place] [address] [id number] Community [id number]: (419) PART A BPolicy Number: [facility] [phone] () [id number] Repository Date:2018-04-09 04/09/2018 Secondary CLAUDIA LEONARDDOB: [place] Insurance:HUMANA [id number] Hospital Hospital Number: Repository [id number] Date:5661-23-58VO[address] [address]XD: 04/09/2018 Tertiary NOT GIVENUNK [place] Insurance:SELF PAY [facility] Number: Effective Repository Date:2018-04-09 04/01/2018 CLAUDIA LEONARDDOB: Primary CLAUDIA LEONARDDOB: [facility] [id number] [facility] [id number] Three Repository [facility] [address] cy Number: [facility] [address] [address], [place] [id number] [address], [place] [address]Vpw: (419) Date:4808-26-32BTH J15 23[address]Oti: (HP) PART A CLAIMSPO [phone] (HP) [address]OIPHZSJGX, [place] [address]ZH: 04/01/2018 Secondary CLAUDIA SAYDIONDOB: [facility] [place] [facility] [id number] Three Repository Number: [facility] [id number] [address], [place] Date:2733-93-80ES [address]Zdv: (419) [address] [place] [address] [phone] () [address]DA: 01/02/2018 CLAUDIA AMOSB: Primary CLAUDIA LEONARDDOB: [facility] Insurance:MEDICAREPoli [id number] Three Repository [facility] [address] cy Number: [facility] [address] [address], [place] [id number] [address], [place] [address]Cyy: (419) Date:0320-34-32NZS J15 227[address]Uvt: () PART A CLAIMSPO [phone] () [address]FSTEBXORP, [place] [address]DN: 01/02/2018 Secondary CLAUDIAMargot AMOSB: [facility] [place] [facility] Insurance:[facility] [id number] Three Repository Number: [facility] [id number] [address], [place] Date:1976-09-69TR [address]Naz: (419) [address] [place] [address] [phone] () [address]QH: 12/20/2017 CLAUDIA MONSON Primary CLAUDIA AMOSB: [place] [address] [id number] Community [id number]: (419) PART A BPolicy Number: [facility] [phone] () [id number] Repository Date:2017-12-20 12/20/2017 Secondary CLAUDIA AMOSB: [place] Insurance:HUMANA [id number] Hospital Hospital Number: Repository [id number] Date:6203-57-31GZ [address] [place] [address]NI: 12/20/2017 Tertiary NOT GIVENUNK [place] Insurance:SELF PAY [facility] Number: Effective Repository Date:2017-12-20 12/19/2017 Claudia Garciaers150 Primary Claudia Valenzuela SaydionDOB: [place] [address] [id number] Community [id number]: (419) PART A BPolicy Number: [facility] [phone] () [id number] Repository Date:2017-12-19 12/19/2017 Secondary Claudia AmosB: [place] Insurance:HUMANA [id number] Hospital Hospital Number: Repository [id number] Date:3443-10-88MF [address] [place] [address]HO: 12/19/2017 Tertiary NOT GIVENUNK [place] Insurance:SELF PAY [facility] Number: Effective Repository Date:2017-12-19 12/10/2017 CLAUDIA LEONARDDOB: Primary CLAUDIA LEONARDDOB: [facility] [place] [facility] Insurance:MEDICAREPoli [id number] [address] [facility] cy Number: [facility] [address], [place] [id number] [address], [place] [address]Coo: (419) Date:4117-72-00FTY J15 [address]Tfj: () PART A CLAIMSPO [phone] () [address]LAXFHUCIF, [place] [address]NM: 12/10/2017 Secondary CLAUDIA LEONARDDOB: [place] [facility] Insurance:HUMANAPolicy [id number] Three Repository Number: [facility] [id number] [address], [place] Date:2791-14-63IG [address] [address]Ubx: [phone] [id number] [place] [address] [phone] () [address]BE: 12/10/2017 CLAUDIA LEONARDDOB: Primary CLAUDIA SAYERSDOB: [place] [facility] Insurance:MEDICAREPoli [id number] [address] [facility] cy Number: [facility] [address] [place] [address] [id number] [place] [address]Nxx: (419) Date:5619-81-35VYO J15 [address]Egp: () PART A CLAIMSPO [phone] () [address]NARTLCQOL, [place] [address]CC: 12/10/2017 Secondary CLAUDIA LEONARDDOB: [place] [facility] [id number] Three Repository Number: [facility] [id number] [address] [place] [address] Date:8418-66-45DH [address]Fzt: (850) [address] [place] [address] [phone] () [address]KP: 10/16/2017 Claudia Leonard150 Primary Claudia LeonardDOB: [place] [address] [id number] Community [id number]: (419) PART A BPolicy Number: [facility] [phone] () [id number] Repository Date:2017-10-16 10/16/2017 Secondary Claudia LeonardDOB: [place] Insurance:HUMANA [id number] [facility] Number: Repository [id number] Date:2219-89-04RJ [address] [place] [address]GU: 10/16/2017 Tertiary NOT GIVENUNK [place] Insurance:SELF PAY [facility] Number: Effective Repository Date:2017-10-16
== END ==
PROVIDERS: Family Provider Internal Medicine; PCP Internal Medicine; Referring Provider Otolaryngology; Visit Provider Otolaryngology
DX: R22.1 Localized swelling, mass and lump, neck (principal)
CPT/HCPCS: 88305; 88341; 88342

== ENCOUNTER → 2018-07-10 13:33 | Outpatient (CLI) | payer MEDICARE, OTHER, SELFPAY ==
--- NOTE | 2018-07-10 13:36 | BI_ITS ---
MAMMOGRAPHY - BILATERAL SCREENING REASON FOR EXAM: Female, 77 years old. Routine annual screening examination. PERTINENT HISTORY: Non-contributory. TECHNIQUE: Digital bilateral breast dawson (3D mammographic acquisition) in the CC and MLO projections. 2-D mediolateral oblique (MLO) and craniocaudad (CC) views of both breasts were obtained. CAD: Full Field Digital Mammography with Computer Added Detection was performed. COMPARISON: Comparison is made with prior study dated June 27, 2017 and May 03, 2016. FINDINGS: Breast Composition: The breasts are heterogeneously dense, which may obscure small masses. There are no dominant masses or suspicious calcifications. A tissue clip marker clip is seen in the upper lateral portion of the left breast. No other significant abnormalities are identified. There has been no significant change since the prior study. BI/SCREENING MAMM (CAD), BILAT IMPRESSION: Stable bilateral screening mammogram. Yearly follow-up mammogram recommended. (A) ASSESSMENT CATEGORY: BIRADS Category 2: Benign. A letter regarding these results will be sent to the patient by the facility within 30 days. Approximately 10% of breast cancers are not detected by mammography. A normal mammogram should not delay biopsy of a clinically suspicious abnormality. [id number] Electronically Signed: Michael Espinoza MD at 15:37 EST , Service support ,
== END ==
PROVIDERS: Family Provider Internal Medicine; PCP Internal Medicine; Referring Provider Obstetrics & Gynecology; Visit Provider Obstetrics & Gynecology
DX: Z12.31 Encounter for screening mammogram for malignant neoplasm of breast (principal)
CPT/HCPCS: 77063; 77067

== ENCOUNTER → 2018-10-14 07:44 | Outpatient (CLI) | payer MEDICARE, OTHER, SELFPAY ==
[2018-10-14 07:57] LABS: Mucous, Urine 0 SEEN /hpf (<or=2+); Squamous Epithelial Cells - UA 0 SEEN /hpf (5-10)
[2018-10-14 10:13] LABS: Absolute Lymphocyte Count 1.92 X10^3/ul (0.83-4.51); Absolute Neutrophil Count 2.7 X10^3/uL (2.0-7.7); Basophil# 0.08 X10^3/uL; Basophil% 1.5 % (0-1); Color, Urine Yellow (Yellow); Eosinophil# 0.26 X10^3/uL; Eosinophils% 4.8 % (0-5); Glucose, Dipstick Normal (Normal); Hematocrit 40.5 % (37-47); Hemoglobin 13.3 g/dl (12.0-15.0); Ketone-Dipstick Negative (Negative); Leukocyte Esterase-Dipstick 500 /ul (Negative); Lymphocyte # 1.92 X10^3/ul (4.0); Lymphocyte % 35.2 % (19-41); Mean Corp Hgb Conc 32.8 g/gl (32-36); Mean Corpuscular Hgb 29.8 pg (27.0-32.0); Mean Corpuscular Volume 90.6 fL (81-99); Monocyte# 0.49 X10^3/uL; Neutrophil # 2.71 X10^3/uL (2.7-7.7); Neutrophil % 49.5 % (47-70); Nitrite-Dipstick Negative (Negative); Occult Blood-Urine 10 /ul (Negative); Platelet Count 265 K/mm3 (150-450); Protein-Dipstick Negative (Negative); RBC Distribution Width CV 13.7 % (11.6-14.6); RBC Distribution Width SD 45.4 fl (35.1-43.9); Red Blood Count 4.47 M/mm3 (4.2-5.4); Urine Bilirubin Dipstick Negative (Negative); Urine Clarity Sl. Cloudy (Clear); Urine Urobilinogen Normal (Normal); White Blood Count 5.5 K/mm3 (4.4-11.0)
[2018-10-14 10:14] LABS: POSITIVE COUNT NO; POSITIVE DIFFERENTIAL NO; POSITIVE MORPHOLOGY NO
[2018-10-14 10:21] LABS: Bacteria 1+ /hpf (None Seen); Red Blood Cells-Urine 0-5 SEEN /hpf (0-5); White Blood Cells 25-50 SEEN /hpf (0-5)
[2018-10-14 10:26] LABS: Microalbumin,Random Urine 15.3 mg/L (NO RANGE EST.); Microalbumin:Creatinine Ratio 15.5 mg/g CRE (<30 mg/g CRE)
[2018-10-14 10:38] LABS: ALB/GLOB Ratio 1.1 RATIO (0.9-2.4); AST(SGOT) 20 U/L (15-37); Alanine Aminotransfer ALT/SGPT 29 U/L (13-56); Albumin, Serum 3.9 g/dL (3.2-5.0); Alkaline Phosphatase 79 U/L (45-117); Anion Gap 7 (5-15); BUN 18 mg/dL (7-18); BUN/Creat Ratio 25.6 RATIO (10-20); Calcium,Total 9.1 mg/dL (8.5-10.1); Chloride 104 mmol/L (98-107); EST Glomerular Filtration Rate 86 mL/min (>60); Est Glom Filt Rate - Afr Amer 104 mL/min (>60); Globulin 3.5 g/dL (2.2-4.2); Glucose 89 mg/dL (74-106); Potassium 3.8 mmol/L (3.5-5.1); Protein, Total 7.4 g/dL (6.4-8.2); Sodium Level 141 mmol/L (136-145); Thyroid Stim Hormone (TSH) 1.72 uIU/mL (0.358-3.74)
[2018-10-15 16:07] LABS: CHOLESTEROL TOTAL 155 mg/dL (100-199); HDL-C 61 mg/dL (>39); HDL-P TOTAL 40.8 umol/L (>=30.5); SMALL LDL-P 529 nmol/L (<=527); TRIGLYCERIDES 80 mg/dL (0-149)
[2018-10-16 13:33] LABS: INSULIN RESISTANCE SCORE 53 (<=45); LDL SIZE 20.7 nm (>20.5); LDL-C 78 mg/dL (0-99); LDL-P 920 nmol/L (<1000)
== END ==
PROVIDERS: Family Provider Internal Medicine; PCP Internal Medicine; Referring Provider Internal Medicine; Visit Provider Internal Medicine
DX: I10 Essential (primary) hypertension (principal); E78.00 Pure hypercholesterolemia, unspecified
CPT/HCPCS: 36415; 80053; 80061; 81001; 82043; 82570; 83704; 84443; 85025

== ENCOUNTER → 2018-10-31 08:01 | Outpatient (CLI) | payer MEDICARE, OTHER, SELFPAY ==
--- NOTE | 2018-10-31 08:03 | CT_ITS ---
STUDY: CT SOFT TISSUE NECK WITH CONTRAST REASON FOR EXAM: Female, 77 years old. Left supraclavicular fullness. No pain. RADIATION DOSAGE (If Supplied By Facility): CTDIvol = ( 10.71 ) mGy, DLP = ( 315.51 ) mGycm TECHNIQUE: The patient was scanned in a multi-detector CT scanner. High resolution transaxial imaging was performed following intravenous administration of 100mL IV Isovue 300. Sagittal and coronal images were reconstructed. Individualized dose optimization techniques were used for this CT. COMPARISON: CT of the soft tissues of the neck, April 10, 2018. FINDINGS: Normal bilateral parotid glands. Normal bilateral group home counselor spaces. Normal bilateral parapharyngeal spaces. There are subcentimeter nonspecific bilateral jugulodigastric lymph nodes. Otherwise normal bilateral carotid spaces. Normal bilateral sublingual and submandibular glands and spaces. Normal visualized nasopharynx. Normal retropharyngeal space. Normal perivertebral space. Normal visualized bilateral faucial tonsils. The visualized tongue, tongue base and oropharynx are normal. The visualized cervical lymph nodes (levels I-) are within normal size limits, and maintain normal morphology. There is no demonstrated solid or cystic mass lesion. There is no abnormal contrast enhancement. Normal epiglottis, bilateral vallecula and hypopharynx. The pre-epiglottic and paraglottic adipose spaces are normal. Normal visualized bilateral piriform sinuses, aryepiglottic folds, vocal cords, and arytenoid-cricoid articulations. Normal subglottic trachea. Normal bilateral lobes of the thyroid gland. Normal visualized pulmonary apices. There is mucoperiosteal reaction versus mucous retention cyst in the right maxillary sinus. This appears unchanged. There is multilevel degenerative changes of the cervical spine. There is no evidence of soft tissue mass or lymphadenopathy in the left suprahilar clavicular space. A right supraclavicular space is unremarkable. The soft tissue mass in the right anterior neck described on the prior CT is no longer present. CT/Soft Tissue Neck WITH Contrast IMPRESSION: 1. No evidence of mass or enlarged lymph nodes in left supraclavicular region. 2. Resolution of the right neck mass adjacent to the laryngeal cartilage seen on the previous study. 3. No acute abnormality or other interval change. Electronically Signed: Kofi Barboza DO at 16:53 EDT Tel [phone], Service support ,
== END ==
PROVIDERS: Family Provider Internal Medicine; PCP Internal Medicine; Referring Provider Internal Medicine; Visit Provider Internal Medicine
DX: R22.2 Localized swelling, mass and lump, trunk (principal)
CPT/HCPCS: 70491; Q9967

== ENCOUNTER → 2019-07-15 10:24 | Outpatient (CLI) | payer MEDICARE, OTHER, SELFPAY ==
--- NOTE | 2019-07-15 10:36 | BI_ITS ---
MAMMOGRAPHY - BILATERAL SCREENING REASON FOR EXAM: Female, 78 years old. Routine annual screening examination. PERTINENT HISTORY: Non-contributory. TECHNIQUE: Digital bilateral breast markus (3D mammographic acquisition) in the CC and MLO projections. 2-D mediolateral oblique (MLO) and craniocaudad (CC) views of both breasts were obtained. CAD: Full Field Digital Mammography with Computer Added Detection was performed. COMPARISON: Comparison is made with prior examination dated July 10, 2018 and December 25, 2017. FINDINGS: Breast Composition: The breasts are heterogeneously dense, which may obscure small masses. There are no dominant masses or suspicious calcifications. Tissue clip marker is seen in the upper anterior lateral aspect of the right breast and a small nodule. This is unchanged. No other significant abnormalities are identified. There has been no significant change since the prior study. BI/SCREEN MAMM (CAD) W/MARKUS BILAT IMPRESSION: Stable bilateral screening mammogram. Yearly follow-up mammogram recommended. (A) ASSESSMENT CATEGORY: BIRADS Category 2: Benign. A letter regarding these results will be sent to the patient by the facility within 30 days. Approximately 10% of breast cancers are not detected by mammography. A normal mammogram should not delay biopsy of a clinically suspicious abnormality. [id number] Electronically Signed: Michael Espinoza, at 15:07 EST , Service support ,
--- NOTE | 2019-07-15 10:37 | BD_ITS ---
STUDY: DUAL ENERGY X-RAY ABSORPTIOMETRY / DXA REASON FOR EXAM: Female, 78 years old. 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 COMPARISON: Comparison is made with prior examination dated June 27, 2017. FINDINGS: Lumbar Spine (L1-L4): g/cm2 (0.872) / T-score (-2.5) / Z-score (-0.7) Findings are suggestive of osteoporosis with a high fracture risk. Left Femur Total: g/cm2 (0.701) / T-score (-2.4) / Z-score (-0.6) Left Femoral Neck: g/cm2 (0.678) / T-score (-2.6) / Z-score (-0.6) Right Femur Total: g/cm2 (0.684) / T-score (-2.6) / Z-score (-0.8) Right Femoral Neck: g/cm2 (0.671) / T-score (-2.6) / Z-score (-0.7) The T-Scores on the most recent prior examination were: Lumbar Spine (L1-L4): There has been worsening of bone density since the previous examination. Left Femur Total: which represents an improvement of 0.3%. Right Femur Total: which represents an improvement of 0.3%. BD/Dexa Bone Density Study IMPRESSION: The patient is considered osteoporotic as outlined below according to World Ezequiel Organization (WHO) criteria with a high fracture risk. There has been improvement of bone density since the previous examination. Reference Information: The T-score is the number of standard deviations above or below the standard which is normal for young adults at their peak bone mineral density. The World Health Organization (WHO) interprets the T-scores as follows: Above -1 Normal bone density Between -1 and -2.5 Osteopenia Equal to / or below -2.5 Osteoporosis As a practical clinical guideline, osteopenia may be graded as follows: Mild -1 through -1.5 Moderate -1.6 through -2.0 Severe -2.1 through -2.4 The Z-score is the number of standard deviations above or below age-matched controls. A Z-score of less than -1.5 would be considered abnormal. References: 1. NIH Osteoporosis and Related Bone Diseases http://www.osteo.org 2. International Society for Clinical Densitometry http://www.iscd.org 3. National Osteoporosis Foundation http://www.nof.org Electronically Signed: Michael Espinoza, at 13:41 EST , Service support ,
== END ==
PROVIDERS: Family Provider Internal Medicine; PCP Internal Medicine; Referring Provider Internal Medicine; Visit Provider Internal Medicine
DX: Z12.31 Encounter for screening mammogram for malignant neoplasm of breast (principal); Z78.0 Asymptomatic menopausal state; M81.0 Age-related osteoporosis without current pathological fracture
CPT/HCPCS: 77063; 77067; 77080

== ENCOUNTER → 2020-05-18 06:04 | Outpatient (CLI) | payer MEDICARE, OTHER, SELFPAY ==
[2020-05-18 06:12] LABS: Bacteria 0 SEEN /hpf (None Seen); Mucous, Urine 0 SEEN /hpf (<or=2+); Red Blood Cells-Urine 0 SEEN /hpf (0-5); Squamous Epithelial Cells - UA 0 SEEN /hpf (5-10)
[2020-05-18 07:15] LABS: Absolute Lymphocyte Count 2.08 X10^3/uL (0.83-4.51); Absolute Neutrophil Count 2.4 X10^3/uL (2.0-7.7); Basophil# 0.08 X10^3/uL; Basophil% 1.4 % (0-1); Eosinophils% 12.1 % (0-5); Hematocrit 40.1 % (37-47); Hemoglobin 13.5 g/dL (12.0-15.0); Lymphocyte # 2.08 X10^3/ul (4.0); Mean Corp Hgb Conc 33.7 g/dL (32-36); Mean Corpuscular Hgb 30.3 pg (27.0-32.0); Mean Corpuscular Volume 89.9 fL (81-99); Mean Platelet Vol. 10.8 fl (6.2-12.0); Monocyte% 8.7 % (0-10); NRBC Flagged by Analyzer 0 % (0-5); Neutrophil # 2.41 X10^3/uL (2.7-7.7); Neutrophil % 41.6 % (47-70); Platelet Count 281 K/mm3 (150-450); RBC Distribution Width CV 13.4 % (11.6-14.6); RBC Distribution Width SD 44.3 fl (35.1-43.9); Red Blood Count 4.46 M/mm3 (4.2-5.4); White Blood Count 5.8 K/mm3 (4.4-11.0)
[2020-05-18 07:29] LABS: Color, Urine Yellow (Yellow); Glucose, Dipstick Normal (Normal); Ketone-Dipstick Negative (Negative); Leukocyte Esterase-Dipstick 25 /ul (Negative); Nitrite-Dipstick Negative (Negative); Occult Blood-Urine 10 /ul (Negative); Protein-Dipstick Negative (Negative); Urine Bilirubin Dipstick Negative (Negative); Urine Clarity Clear (Clear); Urine Urobilinogen Normal (Normal)
[2020-05-18 07:35] LABS: White Blood Cells 0-5 SEEN /hpf (0-5)
[2020-05-18 07:42] LABS: ALB/GLOB Ratio 1.1 RATIO (0.9-2.4); AST(SGOT) 20 U/L (15-37); Alanine Aminotransfer ALT/SGPT 23 U/L (13-56); Albumin, Serum 3.9 g/dL (3.2-5.0); Alkaline Phosphatase 87 U/L (45-117); Anion Gap 5 (5-15); BUN 15 mg/dL (7-18); BUN/Creat Ratio 21.7 RATIO (10-20); Calcium,Total 9.2 mg/dL (8.5-10.1); Chloride 104 mmol/L (98-107); Cholesterol 164 mg/dL (200); Creatinine, Serum 0.69 mg/dL (0.55-1.02); EST Glomerular Filtration Rate 87 mL/min (>60); Est Glom Filt Rate - Afr Amer 106 mL/min (>60); Globulin 3.7 g/dL (2.2-4.2); Glucose 90 mg/dL (74-106); High Density Lipoprotein 56 mg/dL; Protein, Total 7.6 g/dL (6.4-8.2); Sodium Level 140 mmol/L (136-145); Thyroid Stim Hormone (TSH) 2.24 uIU/mL (0.358-3.74); Triglycerides 87 mg/dL; Very Low Density Lipoprotein 17 mg/dL (5-40)
[2020-05-18 07:50] LABS: Microalbumin,Random Urine 6.2 mg/L (NO RANGE EST.); Microalbumin:Creatinine Ratio 8.1 mg/g CRE (<30 mg/g CRE)
== END ==
PROVIDERS: PCP Internal Medicine; Referring Provider Internal Medicine; Visit Provider Internal Medicine
DX: I10 Essential (primary) hypertension (principal); E78.00 Pure hypercholesterolemia, unspecified
CPT/HCPCS: 36415; 80053; 80061; 81001; 82043; 82570; 84443; 85025

== ENCOUNTER → 2020-07-28 09:53 | Outpatient (CLI) | payer MEDICARE, OTHER, SELFPAY ==
--- NOTE | 2020-07-28 09:57 | BI_ITS ---
MAMMOGRAPHY - BILATERAL SCREENING REASON FOR EXAM: Female, 79 years old. Routine annual screening examination. PERTINENT HISTORY: Non-contributory. Remote left ultrasound-guided breast biopsy. TECHNIQUE: Digital bilateral breast markus (3D mammographic acquisition) in the CC and MLO projections. 2-D mediolateral oblique (MLO) and craniocaudad (CC) views of both breasts were obtained. CAD: Full Field Digital Mammography with Computer Added Detection was performed. COMPARISON: Comparison is made with prior study dated 07/15/2019 and 07/10/2018. FINDINGS: Breast Composition: The breasts are heterogeneously dense, which may obscure small masses. There are no dominant masses or suspicious calcifications. Once again, a tissue clip marker is seen in the upper anterior lateral aspect of the left breast. This is unchanged. No other significant abnormalities are identified. There has been no significant change since the prior study. BI/SCRN MAMM (CAD)W/MARKUS BILAT IMPRESSION: Stable bilateral screening mammogram. Yearly follow-up mammogram recommended. (A) ASSESSMENT CATEGORY: BIRADS Category 2: Benign. A letter regarding these results will be sent to the patient by the facility within 30 days. Approximately 10% of breast cancers are not detected by mammography. A normal mammogram should not delay biopsy of a clinically suspicious abnormality. [id number] Electronically Signed: Michael Espinoza MD at 12:09 EST , Service support ,
== END ==
PROVIDERS: PCP Internal Medicine; Referring Provider Internal Medicine; Visit Provider Internal Medicine
DX: Z12.31 Encounter for screening mammogram for malignant neoplasm of breast (principal)
CPT/HCPCS: 77063; 77067

== ENCOUNTER → 2020-12-02 07:01 | Outpatient (CLI) | payer MEDICARE, OTHER, SELFPAY ==
[2020-12-02 07:06] LABS: Bacteria 0 SEEN /hpf (None Seen); Mucous, Urine 0 SEEN /hpf (<or=2+); Red Blood Cells-Urine 0 SEEN /hpf (0-5)
[2020-12-02 10:10] LABS: Color, Urine Yellow (Yellow); Glucose, Dipstick Normal (Normal); Ketone-Dipstick Negative (Negative); Leukocyte Esterase-Dipstick Negative /ul (Negative); Nitrite-Dipstick Negative (Negative); Occult Blood-Urine Negative /ul (Negative); Protein-Dipstick Negative (Negative); Urine Bilirubin Dipstick Negative (Negative); Urine Clarity Clear (Clear); Urine Urobilinogen Normal (Normal)
[2020-12-02 10:13] LABS: Absolute Lymphocyte Count 1.66 X10^3/uL (0.83-4.51); Absolute Neutrophil Count 2.1 X10^3/uL (2.0-7.7); Basophil# 0.08 X10^3/uL; Basophil% 1.6 % (0-1); Eosinophils% 12.1 % (0-5); Hematocrit 37.9 % (37-47); Hemoglobin 11.8 g/dL (12.0-15.0); Lymphocyte # 1.66 X10^3/ul (0.83-4.51); Lymphocyte % 33.6 % (19-41); Mean Corp Hgb Conc 31.1 g/dL (32-36); Mean Corpuscular Hgb 28.1 pg (27.0-32.0); Mean Corpuscular Volume 90.2 fL (81-99); Mean Platelet Vol. 11.1 fl (6.2-12.0); Monocyte# 0.48 X10^3/uL; Monocyte% 9.7 % (0-10); NRBC Flagged by Analyzer 0 % (0-5); Neutrophil # 2.11 X10^3/uL (2.7-7.7); Neutrophil % 42.8 % (47-70); Platelet Count 316 K/mm3 (150-450); RBC Distribution Width CV 14.4 % (11.6-14.6); RBC Distribution Width SD 47.7 fl (35.1-43.9); White Blood Count 4.9 K/mm3 (4.4-11.0)
[2020-12-02 10:18] LABS: Squamous Epithelial Cells - UA 0-5 SEEN /hpf (5-10); White Blood Cells 0 SEEN /hpf (0-5)
[2020-12-02 10:36] LABS: ALB/GLOB Ratio 1.1 RATIO (0.9-2.4); AST(SGOT) 22 U/L (15-37); Alanine Aminotransfer ALT/SGPT 26 U/L (13-56); Albumin, Serum 3.8 g/dL (3.2-5.0); Alkaline Phosphatase 88 U/L (45-117); Anion Gap 6 (5-15); BUN 19 mg/dL (7-18); BUN/Creat Ratio 33.2 RATIO (10-20); Calcium,Total 9.1 mg/dL (8.5-10.1); Chloride 100 mmol/L (98-107); Cholesterol 144 mg/dL (200); Creatinine, Serum 0.57 mg/dL (0.55-1.02); EST Glomerular Filtration Rate 108 mL/min (>60); Est Glom Filt Rate - Afr Amer 131 mL/min (>60); Globulin 3.6 g/dL (2.2-4.2); Glucose 79 mg/dL (74-106); High Density Lipoprotein 48 mg/dL; Potassium 3.6 mmol/L (3.5-5.1); Protein, Total 7.4 g/dL (6.4-8.2); Sodium Level 138 mmol/L (136-145); Thyroid Stim Hormone (TSH) 2.48 uIU/mL (0.358-3.74); Triglycerides 131 mg/dL; Very Low Density Lipoprotein 26 mg/dL (5-40)
[2020-12-02 10:51] LABS: Microalbumin,Random Urine 10.9 mg/L (NO RANGE EST.); Microalbumin:Creatinine Ratio 24.4 mg/g CRE (<30 mg/g CRE)
== END ==
PROVIDERS: PCP Internal Medicine; Referring Provider Internal Medicine; Visit Provider Internal Medicine
DX: I10 Essential (primary) hypertension (principal); E78.00 Pure hypercholesterolemia, unspecified; F32.9 Major depressive disorder, single episode, unspecified
CPT/HCPCS: 36415; 80053; 80061; 81001; 82043; 82570; 84443; 85025

== ENCOUNTER → 2021-03-29 11:16 | Outpatient (CLI) | payer MEDICARE, OTHER, SELFPAY ==
[2021-03-29 15:15] LABS: Absolute Lymphocyte Count 1.99 X10^3/uL (0.83-4.51); Absolute Neutrophil Count 3.5 X10^3/uL (2.0-7.7); Basophil# 0.09 X10^3/uL; Basophil% 1.3 % (0-1); Eosinophil# 0.61 X10^3/uL; Hematocrit 37.4 % (37-47); Hemoglobin 11.6 g/dL (12.0-15.0); Lymphocyte # 1.99 X10^3/ul (0.83-4.51); Lymphocyte % 29.2 % (19-41); Mean Corpuscular Hgb 27.9 pg (27.0-32.0); Mean Corpuscular Volume 89.9 fL (81-99); Mean Platelet Vol. 10.7 fl (6.2-12.0); Monocyte# 0.59 X10^3/uL; Monocyte% 8.7 % (0-10); NRBC Flagged by Analyzer 0 % (0-5); Neutrophil # 3.52 X10^3/uL (2.7-7.7); Neutrophil % 51.7 % (47-70); Platelet Count 415 K/mm3 (150-450); RBC Distribution Width CV 14.7 % (11.6-14.6); RBC Distribution Width SD 49.2 fl (35.1-43.9); Red Blood Count 4.16 M/mm3 (4.2-5.4); White Blood Count 6.8 K/mm3 (4.4-11.0)
[2021-03-29 15:37] LABS: Hemoglobin A1c 5.5 % (3.8-5.6)
[2021-03-29 15:38] LABS: AST(SGOT) 22 U/L (15-37); Alanine Aminotransfer ALT/SGPT 25 U/L (13-56); Albumin, Serum 3.8 g/dL (3.2-5.0); Alkaline Phosphatase 100 U/L (45-117); Anion Gap 8 (5-15); BUN 21 mg/dL (7-18); BUN/Creat Ratio 36.5 RATIO (10-20); Calcium,Total 9.4 mg/dL (8.5-10.1); Chloride 99 mmol/L (98-107); Creatinine, Serum 0.58 mg/dL (0.55-1.02); EST Glomerular Filtration Rate 108 mL/min (>60); Est Glom Filt Rate - Afr Amer 130 mL/min (>60); Glucose 77 mg/dL (74-106); Potassium 4.1 mmol/L (3.5-5.1); Protein, Total 7.8 g/dL (6.4-8.2); Rheumatoid Factor < 10.0 IU/mL (<15); Sodium Level 137 mmol/L (136-145)
[2021-03-31 15:08] LABS: PROEL- A/G Ratio 1.2 (0.7-1.7); PROEL- Albumin 3.8 g/dL (2.9-4.4); PROEL- Alpha-1 Globulin 0.3 g/dL (0.0-0.4); PROEL- Alpha-2 Globulin 0.8 g/dL (0.4-1.0); PROEL- Beta Globulin 1.1 g/dL (0.7-1.3); PROEL- Globulin, Total 3.2 g/dL (2.2-3.9)
== END ==
PROVIDERS: PCP Internal Medicine; Referring Provider Dermatology; Visit Provider Dermatology
DX: L82.1 Other seborrheic keratosis (principal); L81.4 Other melanin hyperpigmentation; D22.5 Melanocytic nevi of trunk; Z71.89 Other specified counseling; L57.8 Other skin changes due to chronic exposure to nonionizing radiation; L92.0 Granuloma annulare; D48.5 Neoplasm of uncertain behavior of skin; L53.8 Other specified erythematous conditions; L29.8 Other pruritus
CPT/HCPCS: 36415; 80053; 83036; 84165; 85025; 86431

== ENCOUNTER 2021-07-12 07:44 | Outpatient (CLI) | payer MEDICARE, OTHER, SELFPAY ==
[2021-07-12 10:11] LABS: Absolute Lymphocyte Count 1.55 X10^3/uL (0.83-4.51); Basophil# 0.08 X10^3/uL; Basophil% 1.7 % (0-1); Eosinophil# 0.55 X10^3/uL; Eosinophils% 11.9 % (0-5); Hematocrit 39.2 % (37-47); Hemoglobin 13.3 g/dL (12.0-15.0); Lymphocyte # 1.55 X10^3/ul (0.83-4.51); Lymphocyte % 33.4 % (19-41); Mean Corp Hgb Conc 33.9 g/dL (32-36); Mean Corpuscular Hgb 29.7 pg (27.0-32.0); Mean Corpuscular Volume 87.5 fL (81-99); Mean Platelet Vol. 10.7 fl (6.2-12.0); Monocyte# 0.42 X10^3/uL; Monocyte% 9.1 % (0-10); NRBC Flagged by Analyzer 0 % (0-5); Neutrophil # 2.03 X10^3/uL (2.7-7.7); Neutrophil % 43.7 % (47-70); Platelet Count 323 K/mm3 (150-450); RBC Distribution Width CV 14.2 % (11.6-14.6); RBC Distribution Width SD 45.9 fl (35.1-43.9); Red Blood Count 4.48 M/mm3 (4.2-5.4); White Blood Count 4.6 K/mm3 (4.4-11.0)
[2021-07-12 10:25] LABS: Ferritin 64 ng/mL (8-252); Iron 65 ug/dL (50-170); Iron Binding Capacity,Total 370 ug/dL (250-450)
== END 2021-07-12 23:59 | disposition home or self-care (01) ==
LOC: MTLAB 07:46
PROVIDERS: PCP Internal Medicine; Referring Provider Nurse Practitioner; Visit Provider Nurse Practitioner
DX: D64.9 Anemia, unspecified (principal)
CPT/HCPCS: 36415; 82728; 83540; 83550; 85025

== ENCOUNTER 2021-07-18 14:10 | Outpatient (CLI) | payer MEDICARE, OTHER, SELFPAY ==
[2021-07-18 15:39] LABS: Absolute Lymphocyte Count 1.99 X10^3/uL (0.83-4.51); Absolute Neutrophil Count 4.9 X10^3/uL (2.0-7.7); Basophil# 0.05 X10^3/uL; Basophil% 0.6 % (0-1); Eosinophils% 7.2 % (0-5); Hematocrit 38.5 % (37-47); Hemoglobin 12.8 g/dL (12.0-15.0); Lymphocyte # 1.99 X10^3/ul (0.83-4.51); Mean Corp Hgb Conc 33.2 g/dL (32-36); Mean Corpuscular Hgb 29.8 pg (27.0-32.0); Mean Corpuscular Volume 89.7 fL (81-99); Mean Platelet Vol. 11.5 fl (6.2-12.0); Monocyte# 0.68 X10^3/uL; Monocyte% 8.2 % (0-10); NRBC Flagged by Analyzer 0 % (0-5); Neutrophil # 4.94 X10^3/uL (2.7-7.7); Neutrophil % 59.6 % (47-70); Platelet Count 331 K/mm3 (150-450); RBC Distribution Width CV 14.1 % (11.6-14.6); RBC Distribution Width SD 46.5 fl (35.1-43.9); Red Blood Count 4.29 M/mm3 (4.2-5.4); White Blood Count 8.3 K/mm3 (4.4-11.0)
[2021-07-20 15:30] LABS: ANTINUCLEAR ANTIBODIES DIRECT Negative (Negative)
== END 2021-07-18 23:59 | disposition home or self-care (01) ==
LOC: MTLAB 14:11
PROVIDERS: PCP Internal Medicine; Referring Provider Internal Medicine; Visit Provider Internal Medicine
DX: R89.8 Other abnormal findings in specimens from other organs, systems and tissues (principal)
CPT/HCPCS: 36415; 85025; 86038

== ENCOUNTER → 2022-02-15 | Outpatient (CLI) | payer MEDICARE, OTHER, SELFPAY ==
--- NOTE | 2022-02-15 09:28 | BI_ITS ---
MAMMOGRAPHY - BILATERAL SCREENING REASON FOR EXAM: Female, 81 years old. Routine annual screening examination. PERTINENT HISTORY: Non-contributory. History of prior left ultrasound-guided breast biopsy. TECHNIQUE: Digital bilateral breast markus (3D mammographic acquisition) in the CC and MLO projections. 2-D mediolateral oblique (MLO) and craniocaudad (CC) views of both breasts were obtained. CAD: Full Field Digital Mammography with Computer Added Detection was performed. COMPARISON: Comparison is made with prior study 07/28/2020 12/13/2019. FINDINGS: Breast Composition: The breasts are heterogeneously dense, which may obscure small masses. There are no dominant masses or suspicious calcifications. A tissue clip marker is seen in the upper lateral aspect of the left breast. No other significant abnormalities are identified. There has been no significant change since the prior study. BI/SCRN MAMM (CAD)W/MARKUS BILAT IMPRESSION: Stable bilateral screening mammogram. Yearly follow-up mammogram recommended. (A) ASSESSMENT CATEGORY: BIRADS Category 2: Benign. A letter regarding these results will be sent to the patient by the facility within 30 days. Approximately 10% of breast cancers are not detected by mammography. A normal mammogram should not delay biopsy of a clinically suspicious abnormality. [id number] Electronically Signed: Michael Espinoza MD at 11:20 EDT ,
--- NOTE | 2022-02-15 09:33 | BD_ITS ---
STUDY: DUAL ENERGY X-RAY ABSORPTIOMETRY / DXA REASON FOR EXAM: Female, 81 years old. [id number]. Patient is postmenopausal. TECHNIQUE: Bone Mineral Density (BMD) measurements of lumbar spine and left hip were obtained. COMPARISON: Comparison is made with prior study dated 07/15/2019. FINDINGS: Lumbar Spine (L1-L4): g/cm2 (0.779) / T-score (-2.4) / Z-score (0.2) Findings are suggestive of osteopenia with a high fracture risk. Left Femur Total: g/cm2 (0.669) / T-score (-2.2) / Z-score (-0.2) Left Femoral Neck: g/cm2 (0.601) / T-score (-2.2) / Z-score (0.0) The T-Scores on the most recent prior examination were: Lumbar Spine (L1-L4): There has been worsening of bone density since the previous examination. Left Femur Total: which represents an improvement of 3.9%. BD/Dexa Bone Density Study IMPRESSION: The patient is considered osteopenic as outlined below according to World [employer] Organization (WHO) criteria with a high fracture risk. There has been worsening of bone density since the previous examination. Reference Information: The T-score is the number of standard deviations above or below the standard which is normal for young adults at their peak bone mineral density. The World Health Organization (WHO) interprets the T-scores as follows: Above -1 Normal bone density Between -1 and -2.5 Osteopenia Equal to / or below -2.5 Osteoporosis As a practical clinical guideline, osteopenia may be graded as follows: Mild -1 through -1.5 Moderate -1.6 through -2.0 Severe -2.1 through -2.4 The Z-score is the number of standard deviations above or below age-matched controls. A Z-score of less than -1.5 would be considered abnormal. References: 1. NIH Osteoporosis and Related Bone Diseases www osteo.org 2. International Society for Clinical Densitometry www iscd.org 3. National Osteoporosis Foundation www nof.org Electronically Signed: Michael Espinoza MD at 12:37 EDT ,
== END | disposition home or self-care (01) ==
LOC: OPBD 09:26
PROVIDERS: PCP Internal Medicine; Referring Provider Nurse Practitioner Family; Visit Provider Nurse Practitioner Family
DX: Z12.31 Encounter for screening mammogram for malignant neoplasm of breast (principal); M85.80 Other specified disorders of bone density and structure, unspecified site; Z78.0 Asymptomatic menopausal state; M81.8 Other osteoporosis without current pathological fracture
CPT/HCPCS: 77063; 77067; 77080

== ENCOUNTER → 2022-02-21 | Outpatient (CLI) | payer MEDICARE, OTHER, SELFPAY ==
--- NOTE | 2022-02-21 12:26 | US_ITS ---
INDICATION: UTI EXAMINATION: Ultrasound US Kidney(s) complete (eg, kidneys and bladder) TECHNIQUE: Woodward scale and color doppler images were obtained of the kidneys. COMPARISON: None. FINDINGS: RIGHT KIDNEY: The right kidney measures 11.7 x 4.1 x 4.0 cm. Renal cortex measures 0.9 cm.. There is no hydronephrosis. No shadowing calculus, solid mass or perinephric collection is demonstrated. Simple cysts visualized in the midpole of the right kidney measuring 2.7 x 2.3 x 2.2 cm and 0.6 x 0.5 x 0.5 cm. LEFT KIDNEY: The left kidney measures 11.5 x 5.1 x 4.2 cm. Left renal cortex measures 0.9 cm. There is no hydronephrosis. No shadowing calculus, focal lesion or perinephric collection is demonstrated. URINARY BLADDER: No acute abnormality. The urinary bladder demonstrates unremarkable wall. Distended bladder volume measures 353.4 ml and post void volume measures 128.32 mL. US/Kidney and Bladder IMPRESSION: No evidence of obstructive uropathy. Electronically Signed: Kvng Regalado MD at 15:43 EDT ,
== END | disposition home or self-care (01) ==
LOC: US 12:24
PROVIDERS: PCP Nurse Practitioner Family; Referring Provider Urology; Visit Provider Urology
DX: N39.0 Urinary tract infection, site not specified (principal)
CPT/HCPCS: 76770

== ENCOUNTER → 2022-05-11 | Outpatient (CLI) | payer MEDICARE, OTHER, SELFPAY ==
[2022-05-11 10:01] LABS: Absolute Lymphocyte Count 1.55 X10^3/uL (0.83-4.51); Absolute Neutrophil Count 2.9 X10^3/uL (2.0-7.7); Basophil# 0.05 X10^3/uL; Basophil% 0.9 % (0-1); Eosinophil# 0.42 X10^3/uL; Eosinophils% 7.8 % (0-5); Hematocrit 38.2 % (37-47); Hemoglobin 12.2 g/dL (12.0-15.0); Lymphocyte # 1.55 X10^3/ul (0.83-4.51); Lymphocyte % 28.8 % (19-41); Mean Corp Hgb Conc 31.9 g/dL (32-36); Mean Corpuscular Volume 90.7 fL (81-99); Mean Platelet Vol. 11.1 fl (6.2-12.0); Monocyte# 0.48 X10^3/uL; Monocyte% 8.9 % (0-10); NRBC Flagged by Analyzer 0 % (0-5); Neutrophil # 2.87 X10^3/uL (2.7-7.7); Neutrophil % 53.4 % (47-70); Platelet Count 265 K/mm3 (150-450); RBC Distribution Width CV 13.6 % (11.6-14.6); RBC Distribution Width SD 45.3 fl (35.1-43.9); Red Blood Count 4.21 M/mm3 (4.2-5.4); White Blood Count 5.4 K/mm3 (4.4-11.0)
[2022-05-11 10:58] LABS: ALB/GLOB Ratio 1.2 RATIO (0.9-2.4); AST(SGOT) 20 U/L (15-37); Alanine Aminotransfer ALT/SGPT 23 U/L (13-56); Albumin, Serum 3.6 g/dL (3.2-5.0); Alkaline Phosphatase 66 U/L (45-117); Anion Gap 5 (5-15); BUN 17 mg/dL (7-18); BUN/Creat Ratio 29.6 RATIO (10-20); Chloride 103 mmol/L (98-107); Creatinine, Serum 0.58 mg/dL (0.55-1.02); EST Glomerular Filtration Rate 108 mL/min (>60); Est Glom Filt Rate - Afr Amer 130 mL/min (>60); Glucose 96 mg/dL (74-106); Potassium 4.2 mmol/L (3.5-5.1); Protein, Total 6.6 g/dL (6.4-8.2); Sodium Level 139 mmol/L (136-145); Thyroid Stim Hormone (TSH) 2.02 uIU/mL (0.358-3.74)
[2022-05-11 15:41] LABS: Microalbumin,Random Urine 8.4 mg/L (NO RANGE EST.); Microalbumin:Creatinine Ratio 43.1 mg/g CRE (<30 mg/g CRE)
== END | disposition home or self-care (01) ==
LOC: MTLAB 08:36
PROVIDERS: PCP Nurse Practitioner Family; Referring Provider Nurse Practitioner Family; Visit Provider Nurse Practitioner Family
DX: I10 Essential (primary) hypertension (principal); E78.00 Pure hypercholesterolemia, unspecified
CPT/HCPCS: 36415; 80053; 82043; 82570; 84443; 85025

== ENCOUNTER → 2023-03-07 | Outpatient (CLI) | payer MEDICARE, OTHER, SELFPAY ==
--- NOTE | 2023-03-07 09:11 | BI_ITS ---
MAMMOGRAPHY - BILATERAL SCREENING REASON FOR EXAM: Female, 82 years old. Routine annual screening examination. PERTINENT HISTORY: Non-contributory. History of prior left ultrasound-guided breast biopsy. TECHNIQUE: Digital bilateral breast markus (3D mammographic acquisition) in the CC and MLO projections. 2-D mediolateral oblique (MLO) and craniocaudad (CC) views of both breasts were obtained. CAD: Full Field Digital Mammography with Computer Added Detection was performed. COMPARISON: Comparison is made with prior study dated February 15, 2022 and July 28, 2020. FINDINGS: Breast Composition: The breasts are heterogeneously dense, which may obscure small masses. There are no dominant masses or suspicious calcifications. A tissue clip marker is once again seen in the upper lateral aspect of the left breast. No other significant abnormalities are identified. There has been no significant change since the prior study. BI/SCRN MAMM (CAD)W/MARKUS BILAT IMPRESSION: Stable bilateral screening mammogram. Yearly follow-up mammogram recommended. (A) ASSESSMENT CATEGORY: BIRADS Category 2: Benign. A letter regarding these results will be sent to the patient by the facility within 30 days. Approximately 10% of breast cancers are not detected by mammography. A normal mammogram should not delay biopsy of a clinically suspicious abnormality. [id number] Electronically Signed: Michael Espinoza MD at 9:58 EDT ,
[2023-03-07 10:08] LABS: Absolute Lymphocyte Count 1.91 X10^3/uL (0.83-4.51); Absolute Neutrophil Count 3.3 X10^3/uL (2.0-7.7); Basophil% 1.5 % (0-1); Eosinophil# 0.74 X10^3/uL; Eosinophils% 11.2 % (0-5); Hematocrit 39.9 % (37-47); Hemoglobin 12.5 g/dL (12.0-15.0); Lymphocyte # 1.91 X10^3/ul (0.83-4.51); Lymphocyte % 28.9 % (19-41); Mean Corp Hgb Conc 31.3 g/dL (32-36); Mean Corpuscular Hgb 29.3 pg (27.0-32.0); Mean Corpuscular Volume 93.7 fL (81-99); Mean Platelet Vol. 10.3 fl (6.2-12.0); Monocyte# 0.56 X10^3/uL; Monocyte% 8.5 % (0-10); NRBC Flagged by Analyzer 0 % (0-5); Neutrophil # 3.28 X10^3/uL (2.7-7.7); Neutrophil % 49.6 % (47-70); Platelet Count 360 K/mm3 (150-450); RBC Distribution Width CV 13.2 % (11.6-14.6); Red Blood Count 4.26 M/mm3 (4.2-5.4); White Blood Count 6.6 K/mm3 (4.4-11.0)
== END | disposition home or self-care (01) ==
PROVIDERS: PCP Nurse Practitioner Family; Referring Provider Nurse Practitioner Family; Visit Provider Nurse Practitioner Family
DX: Z12.31 Encounter for screening mammogram for malignant neoplasm of breast (principal); K57.90 Diverticulosis of intestine, part unspecified, without perforation or abscess without bleeding
CPT/HCPCS: 36415; 77063; 77067; 85025

== ENCOUNTER → 2023-03-19 | Outpatient (CLI) | payer MEDICARE, OTHER, SELFPAY ==
[2023-03-19 09:01] LABS: Absolute Lymphocyte Count 1.66 X10^3/uL (0.83-4.51); Absolute Neutrophil Count 1.5 X10^3/uL (2.0-7.7); Basophil# 0.08 X10^3/uL; Basophil% 1.9 % (0-1); Eosinophil# 0.65 X10^3/uL; Eosinophils% 15.2 % (0-5); Hematocrit 40.3 % (37-47); Hemoglobin 13.2 g/dL (12.0-15.0); Lymphocyte # 1.66 X10^3/ul (0.83-4.51); Lymphocyte % 38.9 % (19-41); Mean Corp Hgb Conc 32.8 g/dL (32-36); Mean Corpuscular Hgb 30.3 pg (27.0-32.0); Mean Corpuscular Volume 92.6 fL (81-99); Mean Platelet Vol. 10.6 fl (6.2-12.0); Monocyte% 9.4 % (0-10); NRBC Flagged by Analyzer 0 % (0-5); Neutrophil # 1.48 X10^3/uL (2.7-7.7); Neutrophil % 34.6 % (47-70); Platelet Count 223 K/mm3 (150-450); RBC Distribution Width CV 13.2 % (11.6-14.6); RBC Distribution Width SD 45.1 fl (35.1-43.9); Red Blood Count 4.35 M/mm3 (4.2-5.4); White Blood Count 4.3 K/mm3 (4.4-11.0)
[2023-03-19 09:40] LABS: AST(SGOT) 19 U/L (15-37); Alanine Aminotransfer ALT/SGPT 25 U/L (13-56); Albumin, Serum 3.5 g/dL (3.2-5.0); Alkaline Phosphatase 70 U/L (45-117); Anion Gap 5 (5-15); BUN 16 mg/dL (7-18); BUN/Creat Ratio 23.4 RATIO (10-20); Calcium,Total 8.9 mg/dL (8.5-10.1); Chloride 105 mmol/L (98-107); Cholesterol 123 mg/dL (200); Creatinine, Serum 0.68 mg/dL (0.55-1.02); EST Glomerular Filtration Rate 88 mL/min (>60); Est Glom Filt Rate - Afr Amer 106 mL/min (>60); Globulin 3.5 g/dL (2.2-4.2); Glucose 92 mg/dL (74-106); High Density Lipoprotein 49 mg/dL; Potassium 4.2 mmol/L (3.5-5.1); Sodium Level 141 mmol/L (136-145); Thyroid Stim Hormone (TSH) 1.23 uIU/mL (0.358-3.74); Triglycerides 39 mg/dL; Very Low Density Lipoprotein 8 mg/dL (5-40)
[2023-03-19 10:05] LABS: Microalbumin,Random Urine 12.3 mg/L (NO RANGE EST.); Microalbumin:Creatinine Ratio 17.7 mg/g CRE (<30 mg/g CRE)
== END | disposition home or self-care (01) ==
LOC: PAVLAB 08:30
PROVIDERS: PCP Nurse Practitioner Family; Referring Provider Nurse Practitioner Family; Visit Provider Nurse Practitioner Family
DX: E78.00 Pure hypercholesterolemia, unspecified (principal); R80.9 Proteinuria, unspecified; F41.8 Other specified anxiety disorders; I10 Essential (primary) hypertension
CPT/HCPCS: 36415; 80053; 80061; 82043; 82570; 84443; 85025

== ENCOUNTER → 2023-07-11 | Outpatient (CLI) | payer MEDICARE, OTHER, SELFPAY ==
--- NOTE | 2023-07-11 11:10 | US_ITS ---
STUDY: SUPERFICIAL ULTRASOUND - LEFT GROIN. REASON FOR EXAM: Female, 82 years old. ENLARGED LYMPH NODE . Palpable lump in the left groin. TECHNIQUE: A superficial ultrasound was performed with real-time and static carey-scale imaging. COMPARISON: None. FINDINGS: The region of the left groin was examined with ultrasound. The palpable mass corresponds to a left inguinal hernia. Incidental note is made of 2 small benign-appearing left inguinal lymph. US/Ext Non Vasc Limited/Soft Tiss IMPRESSION: Left inguinal hernia. There are 2, small benign appearing left inguinal lymph nodes. Electronically Signed: Michael Espinoza MD at 13:45 EST ,
== END | disposition home or self-care (01) ==
LOC: US 11:09
PROVIDERS: PCP Nurse Practitioner Family; Referring Provider Nurse Practitioner Family; Visit Provider Nurse Practitioner Family
DX: R59.9 Enlarged lymph nodes, unspecified (principal)
CPT/HCPCS: 76882

== ENCOUNTER → 2023-12-27 | Outpatient (CLI) | payer MEDICARE, OTHER, SELFPAY ==
[2023-12-27 09:57] LABS: Absolute Lymphocyte Count 1.82 X10^3/uL (0.83-4.51); Basophil# 0.09 X10^3/uL; Basophil% 1.8 % (0-1); Eosinophils% 10.1 % (0-5); Hematocrit 38.2 % (37-47); Hemoglobin 12.7 g/dL (12.0-15.0); Lymphocyte # 1.82 X10^3/ul (0.83-4.51); Lymphocyte % 36.8 % (19-41); Mean Corp Hgb Conc 33.2 g/dL (32-36); Mean Corpuscular Hgb 30.3 pg (27.0-32.0); Mean Corpuscular Volume 91.2 fL (81-99); Mean Platelet Vol. 10.9 fl (6.2-12.0); Monocyte% 10.1 % (0-10); NRBC Flagged by Analyzer 0 % (0-5); Neutrophil # 2.02 X10^3/uL (2.7-7.7); Platelet Count 257 K/mm3 (150-450); RBC Distribution Width SD 43.3 fl (35.1-43.9); Red Blood Count 4.19 M/mm3 (4.2-5.4); White Blood Count 4.9 K/mm3 (4.4-11.0)
[2023-12-27 10:22] LABS: ALB/GLOB Ratio 0.9 RATIO (0.9-2.4); AST(SGOT) 23 U/L (15-37); Alanine Aminotransfer ALT/SGPT 23 U/L (13-56); Albumin, Serum 3.6 g/dL (3.2-5.0); Alkaline Phosphatase 73 U/L (45-117); Anion Gap 3 (5-15); BUN 20 mg/dL (7-18); BUN/Creat Ratio 31.1 RATIO (10-20); Calcium,Total 9.2 mg/dL (8.5-10.1); Chloride 104 mmol/L (98-107); Cholesterol 113 mg/dL (200); Creatinine, Serum 0.64 mg/dL (0.55-1.02); EST Glomerular Filtration Rate 94 mL/min (>60); Est Glom Filt Rate - Afr Amer 114 mL/min (>60); Globulin 3.8 g/dL (2.2-4.2); Glucose 88 mg/dL (74-106); High Density Lipoprotein 49 mg/dL; Potassium 3.7 mmol/L (3.5-5.1); Protein, Total 7.4 g/dL (6.4-8.2); Sodium Level 138 mmol/L (136-145); Thyroid Stim Hormone (TSH) 2.45 uIU/mL (0.358-3.74); Triglycerides 67 mg/dL; Very Low Density Lipoprotein 13 mg/dL (5-40)
== END | disposition home or self-care (01) ==
LOC: MTLAB 07:39
PROVIDERS: PCP Nurse Practitioner Family; Referring Provider Nurse Practitioner Family; Visit Provider Nurse Practitioner Family
DX: I10 Essential (primary) hypertension (principal); E03.9 Hypothyroidism, unspecified; E78.00 Pure hypercholesterolemia, unspecified; F32.A Depression, unspecified
CPT/HCPCS: 36415; 80053; 80061; 84443; 85025

== ENCOUNTER → 2024-04-22 | Outpatient (CLI) | payer MEDICARE, OTHER, SELFPAY | END | disposition home or self-care (01) | LOC: OPBD 14:12 | PROVIDERS: PCP Nurse Practitioner Family; Referring Provider Nurse Practitioner Family; Visit Provider Nurse Practitioner Family | DX: Z12.31 Encounter for screening mammogram for malignant neoplasm of breast (principal); M81.0 Age-related osteoporosis without current pathological fracture | CPT/HCPCS: 77063; 77067; 77080 ==

== ENCOUNTER → 2025-01-13 | Outpatient (CLI) | payer MEDICARE, OTHER, SELFPAY ==
[2025-01-13 09:54] LABS: Hematocrit 38.5 % (37-47); Hemoglobin 12.8 g/dL (12.0-15.0); Immature Granulocytes Count 0.010 X10^3/uL (0.0-0.0); Mean Corp Hgb Conc 33.2 g/dL (32-36); Mean Corpuscular Volume 91.2 fL (81-99); Mean Platelet Vol. 11.1 fl (6.2-12.0); NRBC Flagged by Analyzer 0 % (0-5); Platelet Count 234 K/mm3 (150-450); RBC Distribution Width CV 13.6 % (11.6-14.6); RBC Distribution Width SD 45.8 fl (35.1-43.9); Red Blood Count 4.22 M/mm3 (4.2-5.4); White Blood Count 4.9 K/mm3 (4.4-11.0)
[2025-01-13 10:26] LABS: AST(SGOT) 24 U/L (<=31); Alanine Aminotransfer ALT/SGPT 16 U/L (<=34); Albumin, Serum 4.4 g/dL (3.4-4.8); Alkaline Phosphatase 71 U/L (35-104); Anion Gap 10 (5-15); BUN 15 mg/dL (4-19); BUN/Creat Ratio 25.7 RATIO (10-20); Calcium,Total 9.7 mg/dL (7.6-11.0); Carbon Dioxide 27.6 mmol/L (21.0-32.0); Chloride 101 mmol/L (98-108); Cholesterol 128 mg/dL (<=200); Globulin 2.9 g/dL (2.2-4.2); Glucose 92 mg/dL (70-99); Low Density Lipoprotein Calc. 66 mg/dL; Potassium 3.9 mmol/L (3.3-5.1); Triglycerides 51 mg/dL; Very Low Density Lipoprotein 10 mg/dL (5-40); cholesterol:hdl ratio screen 2.46
== END | disposition home or self-care (01) ==
LOC: MTLAB 07:55
PROVIDERS: PCP Nurse Practitioner Family; Referring Provider Nurse Practitioner Family; Visit Provider Nurse Practitioner Family
DX: E78.00 Pure hypercholesterolemia, unspecified (principal); I10 Essential (primary) hypertension
CPT/HCPCS: 36415; 80053; 80061; 85025